=== PATIENT | male | born 1960 | race Caucasian/White ===

== ENCOUNTER → 2016-07-06 | Outpatient (CLI) | payer OTHER ==
[~2016-07-06] MED LIST: ACET30TAB PO; AMLO10TA2 PO; HYDR25TAB PO; LIPI80TA PO; LISI10TA4 PO; METO50TA2 PO; MOBI7.5T10 PO; NEUR300C PO; PAME50CA PO; TIZA2CAP3 PO; TRAM50TA2 PO
--- NOTE | 2016-07-06 15:43 | REP ---
MRI LUMBAR SPINE WITHOUT CONTRAST: HISTORY: Back and right leg pain. Slight decreased signal intensity on T2-weighted images is present in the L4-5 intervertebral disc. The disc is decreased in height. These findings are consistent with disc degeneration. There is no disc bulge or herniation at the L1-2 and L2-3 levels. The nerves exit the neural foramina without compression. A diffuse disc bulge is present at the L3-4 level. There is minimal compression of the thecal sac. There is hypertrophy of the ligamenta flava and posterior articulating facets. The L3 nerves exit the neural foramina without compression. A diffuse disc bulge is present at the L4-5 level. There is minimal compression of the thecal sac. There is hypertrophy of the posterior articulating facets. The L4 nerves exit the neural foramina without compression. There is no disc bulge or herniation at the L5-S1 level. There is an increase in the amount of epidural fat . There is minimal compression of the thecal sac. There is hypertrophy of the posterior articulating facets. The L5 nerves exit the neural foramina without compression. The conus medullaris is normal in appearance terminating at the level of the T12-L1 intervertebral disc. Normal signal intensity is present in the lumbar vertebral bodies. IMPRESSION: 1. Diffuse disc bulges at the L3-4 and L4-5 levels with minimal thecal sac compression. 2. There is epidural lipomatosis at the L5-S1 level with minimal thecal sac compression. Signed by Vick Kaur MD 07/06/2016 04:05 P
== END ==
LOC: M RAD 14:30
PROVIDERS: ATTEND Nurse Practitioner Family
DX: M51.16 Intervertebral disc disorders with radiculopathy, lumbar region (principal); E88.2 Lipomatosis, not elsewhere classified

== ENCOUNTER → 2016-07-12 | Outpatient (CLI) | payer OTHER ==
--- NOTE | 2016-07-15 00:53 | ECWPNPC ---
PATIENT NAME: ALLYN PERERA : 1960 GENDER: MALE VISIT DATE: 07/12/2016 DISCHARGE DATE: 07/12/16933 VISIT LOCKED DATE TIME: PHYSICIAN: ALFA CARRASCO RESOURCE: ALFA CARRASCO REASON FOR APPOINTMENT 1. BACK PAIN HISTORY OF PRESENT ILLNESS HISTORY OF PRESENT ILLNESS: HERE FOR ROUTINE F/U AND REVIEW OF MRI L/S SPINE.THIS IS SHOWING MULTI LEVEL DISC BULGE W FACET HYPERTROPHY.CHIEF AREA OF PAIN IS RIGHT LOW BACK AND BUTTOCK.PATIENT IS VERY ANXIOUS AGAIN TODAY AND ASKING FOR PROCEDURE TODAY.STATES HE RECENTLY LOST JOB DUE TO MISSED WORK DUE TO BACK PAIN..HAD TPI HEAD AND NECK ON 05-17-16.REPORTS NO IMPROVEMENT IN PAIN AND SOME AGGREVATION IN PAIN.CONTINUES WITH C/O NECK PAIN.CHIEF AREA OF PAIN TODAY IS RIGHT LOW BACK.THIS HAS BEEN HAPPENING FOR PAST 2MOS.DENIES PRECIPITAING EVENT.REPORTING NORMAL BOWEL AND BLADDER FUNCTION.PAIN SCORE IS 3-6/10 VAS. PAIN THE PATIENT DESCRIBES THE PAIN... THE PATIENT DESCRIBES THE PAIN... FALL RISK SCREENING: SCREENING :NO FALLS IN THE PAST YEAR CURRENT MEDICATIONS TAKING ATORVASTATIN CALCIUM 80 MG TABLET 1 TABLET ORALLY ONCE A DAY TAKING LISINOPRIL 10 MG TABLET 1 TABLET ORALLY ONCE A DAY, NOTES: 05/16/16 @ 1300 TAKING ZYRTEC ALLERGY 10 MG TABLET 1 TABLET ORALLY ONCE A DAY NEEDED, NOTES: 05/16/16 @ 0730 TAKING METOPROLOL TARTRATE 50 MG TABLET 1 TABLET ORALLY TWICE A DAY, NOTES: 05/17/16 0730 TAKING AMLODIPINE BESYLATE 10 MG TABLET 1 TABLET ORALLY ONCE A DAY, NOTES: 05/17/16 0730 TAKING GABAPENTIN 300 MG CAPSULE 3 ORALLY THREE TIMES A DAY, NOTES: 05/16/16 2300 TAKING TIZANIDINE HCL 4 MG TABLET 1 TABLET NEEDED ORALLY EVERY 8 HRS PRN, NOTES: 05/16/16 1800 TAKING MELOXICAM 15 MG TABLET 1 TABLET ORALLY TAKE DAILY FOR 5 DAYS, OFF FOR 2 TAKING BUPROPION HCL (SR) 150 MG TABLET EXTENDED RELEASE 12 HOUR 1 TABLET ORALLY TWICE A DAY TAKING VALTREX 500 MG TABLET 1 TABLET ORALLY DAILY NOT-TAKING MOBIC 15 MG TABLET 1 TABLET ORALLY ONCE A DAY X5DAYS OFF 5 DAYS PRN, NOTES: 05/17/16 @ 0130 NOT-TAKING HYDROCHLOROTHIAZIDE 25 MG TABLET 1/2 TAB(S) ORALLY ONCE A DAY, NOTES: > 2 MONTHS NOT-TAKING NAPROSYN 500 MG TABLET 1 TABLET NEEDED ORALLY DAILY NEEDED NOT-TAKING [facility] VITAMIN D3 1000 UNIT CAPSULE 1 CAPSULE ORALLY ONCE A DAY NOT-TAKING FIRST-MOUTHWASH BLM - SUSPENSION DIRECTED MOUTH/THROAT FOUR TIMES DAILY NEEDED MEDICATION LIST REVIEWED AND RECONCILED WITH THE PATIENT PAST MEDICAL HISTORY HTN SHORT'S PALSY JOINT PAIN UNSPECIFIED ESSENTIAL HYPERTENSION PAIN IN JOINT, SHOULDER REGION NONALLOPATHIC LESION OF THORACIC REGION, NOT ELSEWHERE CLASSIFIED NONDEPENDENT TOBACCO USE DISORDER SMOKING MIGRAINE WITHOUT AURA, WITH INTRACTABLE MIGRAINE, SO STATED, WITHOUT MENTION OF STATUS MIGRAINOSUS TRANSAMINITIS HYPERGLYCEMIA ALLERGY ALLERGIC CONJUNCTIVITIS HYPERLIPIDEMIA ESSENTIAL HYPERTENSION ASCVD10 (2016)- 11.5% ALLERGIES ASPIR-81: VOMITING: ALLERGY SOCIAL HISTORY GENERAL: TOBACCO USE ARE YOU A:CURRENT SMOKER HOW MANY CIGARETTES A DAY DO YOU SMOKE?6-10 HOW SOON AFTER YOU WAKE UP DO YOU SMOKE YOUR FIRST CIGARETTE?AFTER 60 MIN HOW OFTEN DO YOU SMOKE CIGARETTES?EVERY DAY PATIENT COUNSELED ON THE DANGERS OF TOBACCO USE AND URGED TO QUIT: COUNCELED ON THE IMPORTANCE OF NOT SMOKING. HE HAS CUT DOWN A LOT ON THE #/DAY THAT HE IS SMOKING. ARE YOU INTERESTED IN QUITTING?NOT READY TO QUIT LEARNING BARRIERS / SPECIAL NEEDS ORIENTED TO PLAN OF CARE: PATIENT, PAIN MANAGEMENT PATIENT, ORIENTED TO PLAN OF CARE: PATIENT, PAIN MANAGEMENT PATIENT. NEW PATIENT PAIN DIARY TODAY'S VISITNOTES FROM 0-10, WHAT LEVEL IS YOUR PAIN TODAY?0 PAIN CLINIC PFS, CLERGY, PUBLIC HEALTH REFERRALS PFS REFERRAL NEEDED?NO CLERGY REFERRAL NEEDED?NO PUBLIC HEALTH REFERRAL NEEDED?NO WAS THE PROVIDER NOTIFIED OF ANY PERTINENT INFO?NO PFS REFERRAL NEEDED?NO CLERGY REFERRAL NEEDED?NO PUBLIC HEALTH REFERRAL NEEDED?NO WAS THE PROVIDER NOTIFIED OF ANY PERTINENT INFO?NO REVIEW OF SYSTEMS CONSTITUTIONAL: ANY CHANGE IN YOUR MEDICAL CONDITION? NO . RECENT ILLNESS DENIES . CHILLS NO . FEVER NO . WEIGHT LOSS DENIES . INFECTION: DO YOU HAVE NEW INFECTIONS? NO . DO YOU HAVE HISTORY OF MRSA? NO . MUSCULOSKELETAL: ANY NEW PATTERNS OF PAIN OR NUMBNESS? YES, PAIN IN RIGHT LOWER BACK INTO BUTTOCKS RADIATING DOWN LEG JUST BEHIND KNEE HAS GOTTEN WORSE . GASTROENTEROLOGY: ANY NEW CHANGE IN BOWEL CONTROL? NO . GENITOURINARY: ANY NEW CHANGE IN BLADDER CONTROL? YES URINATING MORE FREQUENTLY . IS THERE A CHANCE YOU COULD BE ? NO . HEMATOLOGY/LYMPH: DO YOU TAKE ANY BLOOD THINNERS? (FOR EXAMPLE- COUMADIN, PLAVIX, AGGRENOX, PLATEL, PRADAXA, OR XARELTO) NO . WHEN WAS YOUR LAST DOSE? DATE: TIME: . NEUROLOGY: HAVE YOU FALLEN IN THE PAST 6 MONTHS? NO . ANY NEW EXTREMITY NUMBNESS OR WEAKNESS? NO . CARDIOLOGY: DO YOU HAVE A PACEMAKER OR DEFIBRILLATOR? NO . CHEST PAIN DENIES . SHORTNESS OF BREATH DENIES . RESPIRATORY: HAVE YOU BEEN SICK IN THE PAST WEEK? NO . FEVER NO . FLU LIKE SYMPTOMS? NO . COUGH NO, DENIES . SHORTNESS OF BREATH DENIES . INTEGUMENTARY: DO YOU HAVE ANY RASHES OR OPEN SORES? NO . ALLERGIC/IMMUNO: ARE YOU ALLERGIC TO SHELLFISH OR IV DYE? NO . ANY NEW ALLERGIES? NO . PSYCHIATRIC: DO YOU HAVE THOUGHTS OF HURTING YOURSELF OR SOMEONE ELSE? NO . ARE YOU ABUSED, NEGLECTED, OR IN AN UNSAFE ENVIRONMENT? NO . ENDOCRINOLOGY: ARE YOU DIABETIC? NO . OTHER: DO YOU NEED ANY PRESCRIPTIONS? YES, GABAPENTIN . IF YES, PLEASE LIST: ____ . ANY NEW PROBLEMS WITH YOUR MEDICATIONS? NO . WHEN DID YOU LAST EAT? ____ . WHEN DID YOU LAST DRINK? ____ . WHAT DID YOU LAST DRINK? ____ . NAME OF PERSON DRIVING YOU HOME? ____ . DO YOU HAVE ANY OTHER QUESTIONS OR CONCERNS NO . REVIEWED BY: PROVIDER: ALFA JIMENEZ . VITAL SIGNS WT 190 LBS, HT 66 IN, BMI 30.66 INDEX, BP 163/106 R ARM, REPEAT BP 170/102 L ARM, HR 79 /MIN, RR 18 /MIN, TEMP 97.6 F, OXYGEN SAT % 98, NA INITIALS TL 0857, REVIEWED BY: ROYAL BP, RN AJackie. AWARE-TLB/P RECHECK RIGHT ARM MANUALLY 150/92. EXAMINATION GENERAL EXAMINATION: LUNGS:LUNG SOUNDS ARE CLEAR. HEART:HEART RATE REGULAR. MUSCULOSKELETAL:*. DIAGNOSTIC:MRI L/S SPINE 07-06-16-REVIEWED.. LUMBAR SPINE/LOWER BACK: PALPATION:SPECIFIC POINT TENDERNESS OVER RIGHT SIJ.TENDER OVER LUMBAR PARASPINALS RIGHT >LEFT.. MOTOR SYSTEM:MILD WEAKNESS OVER RIGHT LEG.. REFLEXES:2/4 AND SYMMETRIC BLE. ASSESSMENTS LOW BACK PAIN RADIATING TO RIGHT LEG - M54.5 (PRIMARY) SACROILIAC JOINT PAIN - M53.3 TREATMENT LOW BACK PAIN RADIATING TO RIGHT LEG INJECTION ANESTHETIC SACROILIAC JOINT PREVENTIVE MEDICINE PAIN CLINIC TEACHING: PROCEDURE TEACHING PRINTED INFORMATION ON SIJ INJECTION GIVEN TO AND EXPLAINED TO PAT. HE VERBALIZED UNDERSTANDING.. PROCEDURE CODES FA211 ESTABILISHED PATIENT [facility] CHARGE FOLLOW UP 2 WEEKS POST (REASON: RIGHT SIJ SCHEDULE LINDA) ELECTRONICALLY SIGNED BY BARBARA HUFF ON 07/14/2016 AT 09:49 AM EST DISCLAIMER : THIS IS A VISIT SUMMARY EXTRACTED FROM THE [employer] CHART. IT IS NOT A COPY OF THE [employer] PROGRESS NOTE. DARLIN
== END ==
LOC: M PAIN 08:40
PROVIDERS: ATTEND Nurse Practitioner Family
DX: Z09 Encounter for follow-up examination after completed treatment for conditions other than malignant neoplasm (principal); M54.5 Low back pain; M53.3 Sacrococcygeal disorders, not elsewhere classified; I10 Essential (primary) hypertension; G43.909 Migraine, unspecified, not intractable, without status migrainosus; E78.5 Hyperlipidemia, unspecified; F17.200 Nicotine dependence, unspecified, uncomplicated; Z88.6 Allergy status to analgesic agent; Z79.899 Other long term (current) drug therapy

== ENCOUNTER → 2016-07-26 | Outpatient (REF) | payer OTHER | LOC: M SMT 16:58 | PROVIDERS: ATTEND Nurse Practitioner Women's Health | DX: R35.0 Frequency of micturition (principal) ==

== ENCOUNTER → 2016-07-27 | Outpatient (CLI) | payer OTHER ==
[~2016-07-27] MED LIST changes: +BUPIVACAINE HCL 0.25% 30 ML VIAL As Ordered ONE; +ISOVUE-M 300 61% 15ML VIAL (Q9967) As Ordered ONE; +LIDOCAINE 1% SDV INJ 30 ML VIAL As Ordered ONE; +TRIAMCINOLONE ACETONIDE SUSP 40 MG/ML VIAL (J3301) As Ordered ONE; +diazePAM 5 MG TAB As Ordered ONE; +oxyCODONE 5MG TAB As Ordered ONE
--- NOTE | 2016-07-27 15:02 | REP ---
Partial SI joint series: Two views. History: Injection procedure for pain. 9 seconds of fluoroscopy time is reported. Findings: A sequence of two fluoroscopically obtained last image hold spot radiographs of the right SI joint document needle position and contrast injection associated with SI joint injection procedure. Signed by Wang Laureano MD 07/27/2016 03:06 P
--- NOTE | 2016-07-30 00:01 | ECWPNPC ---
PATIENT NAME: ALLYN PERERA : 1960 GENDER: MALE VISIT DATE: 07/27/2016 DISCHARGE DATE: 07/27/16 1435 VISIT LOCKED DATE TIME: PHYSICIAN: KIARA MAYER RESOURCE: KIARA MAYER REASON FOR APPOINTMENT 1. RT SIJ HISTORY OF PRESENT ILLNESS HISTORY OF PRESENT ILLNESS: PAIN THE PATIENT DESCRIBES THE PAIN... FALL RISK SCREENING: SCREENING :NO FALLS IN THE PAST YEAR CURRENT MEDICATIONS TAKING ATORVASTATIN CALCIUM 80 MG TABLET 1 TABLET ORALLY ONCE A DAY, NOTES: 07-26-16 1700 TAKING LISINOPRIL 10 MG TABLET 1 TABLET ORALLY ONCE A DAY, NOTES: 07-26-16 2PM TAKING ZYRTEC ALLERGY 10 MG TABLET 1 TABLET ORALLY ONCE A DAY NEEDED, NOTES: 07-26-16 PM TAKING METOPROLOL TARTRATE 50 MG TABLET 1 TABLET ORALLY TWICE A DAY, NOTES: 07-27-16 0900 TAKING AMLODIPINE BESYLATE 10 MG TABLET 1 TABLET ORALLY ONCE A DAY, NOTES: 07-27-16 09 TAKING GABAPENTIN 300 MG CAPSULE 3 ORALLY THREE TIMES A DAY, NOTES: 07-27-16 09 TAKING TIZANIDINE HCL 4 MG TABLET 1 TABLET NEEDED ORALLY EVERY 8 HRS PRN, NOTES: 05/16/16 1800 TAKING MELOXICAM 15 MG TABLET 1 TABLET ORALLY TAKE DAILY FOR 5 DAYS, OFF FOR 2, NOTES: 3 DAYS AGO TAKING BUPROPION HCL (SR) 150 MG TABLET EXTENDED RELEASE 12 HOUR 1 TABLET ORALLY TWICE A DAY, NOTES: 07-26-16 2200 TAKING VALTREX 500 MG TABLET 1 TABLET ORALLY DAILY, NOTES: 07-27-16 09 TAKING DIFLUCAN 100 MG TABLET 1 TABLET ORALLY ONCE A DAY, NOTES: 07-27-16899 TAKING KETOCONAZOLE 2 % CREAM 1 APPLICATION TO AFFECTED AREA EXTERNALLY THREE TIMES DAILY, NOTES: 07-27-16 NOT-TAKING HYDROCHLOROTHIAZIDE 25 MG TABLET 1/2 TAB(S) ORALLY ONCE A DAY, NOTES: > 2 MONTHS NOT-TAKING FIRST-MOUTHWASH BLM - SUSPENSION DIRECTED MOUTH/THROAT FOUR TIMES DAILY NEEDED DISCONTINUED DIFLUCAN 200 MG TABLET 1 TABLET ORALLY ONE DOSE TODAY DISCONTINUED MOBIC 15 MG TABLET 1 TABLET ORALLY ONCE A DAY X5DAYS OFF 5 DAYS PRN, NOTES: 05/17/16 @ 0130 DISCONTINUED NAPROSYN 500 MG TABLET 1 TABLET NEEDED ORALLY DAILY NEEDED DISCONTINUED CVS VITAMIN D3 1000 UNIT CAPSULE 1 CAPSULE ORALLY ONCE A DAY MEDICATION LIST REVIEWED AND RECONCILED WITH THE PATIENT PAST MEDICAL HISTORY HTN SHORT'S PALSY JOINT PAIN UNSPECIFIED ESSENTIAL HYPERTENSION PAIN IN JOINT, SHOULDER REGION NONALLOPATHIC LESION OF THORACIC REGION, NOT ELSEWHERE CLASSIFIED NONDEPENDENT TOBACCO USE DISORDER SMOKING MIGRAINE WITHOUT AURA, WITH INTRACTABLE MIGRAINE, SO STATED, WITHOUT MENTION OF STATUS MIGRAINOSUS TRANSAMINITIS HYPERGLYCEMIA ALLERGY ALLERGIC CONJUNCTIVITIS HYPERLIPIDEMIA ESSENTIAL HYPERTENSION ASCVD10 (2016)- 11.5% ALLERGIES ASPIR-81: VOMITING: ALLERGY SOCIAL HISTORY GENERAL: TOBACCO USE ARE YOU A:NONSMOKER LEARNING BARRIERS / SPECIAL NEEDS ORIENTED TO PLAN OF CARE: PATIENT, PAIN MANAGEMENT PATIENT, ORIENTED TO PLAN OF CARE: PATIENT, PAIN MANAGEMENT PATIENT. NEW PATIENT PAIN DIARY TODAY'S VISITNOTES FROM 0-10, WHAT LEVEL IS YOUR PAIN TODAY?0 PAIN CLINIC PFS, CLERGY, PUBLIC HEALTH REFERRALS PFS REFERRAL NEEDED?NO CLERGY REFERRAL NEEDED?NO PUBLIC HEALTH REFERRAL NEEDED?NO WAS THE PROVIDER NOTIFIED OF ANY PERTINENT INFO?NO PFS REFERRAL NEEDED?NO CLERGY REFERRAL NEEDED?NO PUBLIC HEALTH REFERRAL NEEDED?NO WAS THE PROVIDER NOTIFIED OF ANY PERTINENT INFO?NO REVIEW OF SYSTEMS CONSTITUTIONAL: ANY CHANGE IN YOUR MEDICAL CONDITION? NO . CHILLS NO . FEVER NO . INFECTION: DO YOU HAVE NEW INFECTIONS? NO . DO YOU HAVE HISTORY OF MRSA? NO . MUSCULOSKELETAL: ANY NEW PATTERNS OF PAIN OR NUMBNESS? NO . GASTROENTEROLOGY: ANY NEW CHANGE IN BOWEL CONTROL? NO . GENITOURINARY: ANY NEW CHANGE IN BLADDER CONTROL? YES, FREQUENT URINATION. SEEING UROLOGY. . IS THERE A CHANCE YOU COULD BE ? NO . HEMATOLOGY/LYMPH: DO YOU TAKE ANY BLOOD THINNERS? (FOR EXAMPLE- COUMADIN, PLAVIX, AGGRENOX, PLATEL, PRADAXA, OR XARELTO) NO . WHEN WAS YOUR LAST DOSE? DATE: TIME: . NEUROLOGY: HAVE YOU FALLEN IN THE PAST 6 MONTHS? NO . ANY NEW EXTREMITY NUMBNESS OR WEAKNESS? NO . CARDIOLOGY: DO YOU HAVE A PACEMAKER OR DEFIBRILLATOR? NO . RESPIRATORY: HAVE YOU BEEN SICK IN THE PAST WEEK? NO . FEVER NO . FLU LIKE SYMPTOMS? NO . COUGH NO . INTEGUMENTARY: DO YOU HAVE ANY RASHES OR OPEN SORES? NO . ALLERGIC/IMMUNO: ARE YOU ALLERGIC TO SHELLFISH OR IV DYE? NO . ANY NEW ALLERGIES? NO . PSYCHIATRIC: DO YOU HAVE THOUGHTS OF HURTING YOURSELF OR SOMEONE ELSE? NO . ARE YOU ABUSED, NEGLECTED, OR IN AN UNSAFE ENVIRONMENT? NO . ENDOCRINOLOGY: ARE YOU DIABETIC? NO . OTHER: DO YOU NEED ANY PRESCRIPTIONS? NO . IF YES, PLEASE LIST: ____ . ANY NEW PROBLEMS WITH YOUR MEDICATIONS? NO . WHEN DID YOU LAST EAT? 07-27-16 0500 . WHEN DID YOU LAST DRINK? 07-27-16 0900 . WHAT DID YOU LAST DRINK? ICED TEA . NAME OF PERSON DRIVING YOU HOME? DELBERT . DO YOU HAVE ANY OTHER QUESTIONS OR CONCERNS NO . REVIEWED BY: PROVIDER: . VITAL SIGNS WT 192 LBS, HT 66 IN, BMI 30.99 INDEX, BP 144/98 MANUAL, HR 64 /MIN, RR 18 /MIN, TEMP 97.4 F, OXYGEN SAT % 93, NA INITIALS TL 1305, REVIEWED BY: CM. ASSESSMENTS SACROILIITIS, NOT ELSEWHERE CLASSIFIED - M46.1 (PRIMARY) PROCEDURES PN SI PRE PROCEDURE DIAGNOSIS SACROILIITIS, SACROILIAC JOINT DYSFUNCTION POST PROCEDURE DIAGNOSIS SACROILIITIS, SACROILIAC JOINT DYSFUNCTION PROCEDURE RIGHT SACROILIAC JOINT BLOCK SURGEON DR. KIARA MAYER FLIGHT CONTROLS ENGINEER NONE ANESTHESIA LOCAL PRE PROCEDURE NOTE PATIENT WITH HISTORY OF CHRONIC LOW BACK PAIN. I EVALUATED THE PATIENT AND REVIEWED THE CHART. I WENT OVER THE RISKS, ALTERNATIVES, AND BENEFITS ASSOCIATED WITH THIS PROCEDURE. THE PATIENT WOULD LIKE TO PROCEED AND GAVE CONSENT TO PERFORM THE PROCEDURE. THE PATIENT DENIES UNEXPLAINABLE WEIGHT LOSS, FEVER, CHILLS, OR NEW CHANGES IN URINARY OR BOWEL CONTROL DESCRIPTION OF PROCEDURE THE PATIENT WAS BROUGHT TO THE PROCEDURE ROOM AND PLACED IN THE PRONE POSITION. THE LUMBOSACRAL AREA WAS CLEANED WITH CHLORAPREP SOLUTION AND DRAPED ASEPTICALLY. THE PROCEDURE WAS DONE UNDER STERILE CONDITIONS. I CHECKED LATERALITY AND THE LEVEL WHERE THE PROCEDURE WAS GOING TO BE PERFORMED WITH THE PATIENT AND THE SUPPORTING STAFF AT THE MOMENT OF THE TIME OUT IN THE PROCEDURE ROOM. UNDER FLUOROSCOPIC GUIDANCE, TARGET POINT WAS SELECTED AT THE LOWER BORDER OF THE RIGHT SACROILIAC JOINT. TARGET POINT WAS SELECTED AFTER MEDIAL ROTATION AND TILT OF THE MAGNIFIER OF THE C-ARM. LIDOCAINE WAS USED TO NUMB THE SKIN AND SUBCUTANEOUS TISSUE BELOW IT. A SPINAL NEEDLE, 22-GAUGE, WAS ADVANCED UNDER FLUOROSCOPIC GUIDANCE AND FOLLOWING PATIENT FEEDBACK UNTIL THE TARGET AREA WAS TOUCHED. THE POSITION OF THE NEEDLE WAS VERIFIED WITH AP AND LATERAL VIEWS. AFTER PROPER POSITION OF THE NEEDLE WAS ACHIEVED, ISOVUE M DYE 30%, 0.25 ML, WAS INJECTED SHOWING SPREAD OF THE DYE. THEN, A SOLUTION OF 20 MG OF KENALOG WAS INJECTED IN RIGHT JOINT WITH 3 ML OF BUPIVACAINE 0.125%. THERE WAS NO EVIDENCE OF BLOOD, PARESTHESIA OR CEREBROSPINAL FLUID DURING THE PROCEDURE. THE PATIENT WAS SENT TO THE RECOVERY ROOM. THE PATIENT WAS MOVING THE EXTREMITIES AND DOING WELL. THERE WAS NO COMPLICATION DURING THE PROCEDURE. FLUOROSCOPY TIME WAS 9 SECONDS POST PROCEDURE NOTE THE PATIENT WILL BE SEEN IN A FOLLOW UP IN THE NEXT FEW WEEKS. INSTRUCTIONS WERE GIVEN, QUESTIONS WERE ANSWERED, AND THE PATIENT EXPRESSED UNDERSTANDING AND AGREED WITH THE PLAN. I, MOISÉS PATE, DOCUMENTED THE ABOVE INFORMATION ACTING A SCRIBE FOR DR. MAYER. I, DR. MAYER, HAVE REVIEWED THE ABOVE DOCUMENT, SCRIBED BY MOISÉS PATE, AND I VERIFY THAT IT IS ACCURATE DIAGNOST[facility]AG[facility] FLUORO GUIDANCE (PAIN)[id number] PROCEDURE CODES 32855 INJECT SACROILIAC JOINT 6045F RADXPS IN END [id number] PXD FOLLOW UP 3 WEEKS ELECTRONICALLY SIGNED BY KIARA MAYER MD ON 07/29/2016 AT 01:38 PM EST DISCLAIMER : THIS IS A VISIT SUMMARY EXTRACTED FROM THE [employer] CHART. IT IS NOT A COPY OF THE [employer] PROGRESS NOTE. MTDD
== END ==
LOC: M PAIN 13:00
PROVIDERS: ATTEND Anesthesiology
DX: G89.29 Other chronic pain (principal); M46.1 Sacroiliitis, not elsewhere classified; M53.88 Other specified dorsopathies, sacral and sacrococcygeal region; I10 Essential (primary) hypertension; G43.901 Migraine, unspecified, not intractable, with status migrainosus; E78.5 Hyperlipidemia, unspecified; M99.82 Other biomechanical lesions of thoracic region; Z86.69 Personal history of other diseases of the nervous system and sense organs; Z86.39 Personal history of other endocrine, nutritional and metabolic disease; Z88.6 Allergy status to analgesic agent; Z79.899 Other long term (current) drug therapy; Z87.891 Personal history of nicotine dependence
CPT/HCPCS: G0260; J3301; Q9967

== ENCOUNTER 2016-07-29 11:38 | Emergency (ER) | payer OTHER, SELFPAY ==
[~2016-07-29 11:38] MED LIST changes: -BUPIVACAINE HCL 0.25% 30 ML VIAL As Ordered ONE; -ISOVUE-M 300 61% 15ML VIAL (Q9967) As Ordered ONE; -LIDOCAINE 1% SDV INJ 30 ML VIAL As Ordered ONE; -TRIAMCINOLONE ACETONIDE SUSP 40 MG/ML VIAL (J3301) As Ordered ONE; -diazePAM 5 MG TAB As Ordered ONE; -oxyCODONE 5MG TAB As Ordered ONE
[2016-07-29] MEDS ORDERED: HumuLIN R (REGULAR) INSULIN (NovoLIN R) **100U/ML** PER UNIT As Ordered ONE (12:56)
[2016-07-29 13:12] LABS: BASO % 0.1 % (0.0-1.0); EOS # 0.2 K/mm3 (0.0-0.50); LARGE UNSTAINED CELL # 0.1 K/mm3 (0.0-0.4); LARGE UNSTAINED CELL % 0.6 % (0.0-4.0); LYMPH # 1.5 K/mm3 (1.5-4.5); LYMPH % 8.4 % (24.0-44.0); MEAN CORPUSCULAR HEMOGLOBIN 33.1 pg (27.0-33.0); MEAN CORPUSCULAR HGB CONC 33.3 g/dl (32.0-36.5); MEAN CORPUSCULAR VOLUME 99.5 fl (80.0-96.0); MONO # 0.9 K/mm3 (0.0-0.8); MONO % 5.3 % (0.0-5.0); NEUTROPHILS # 13.8 K/mm3 (1.8-7.7); NEUTROPHILS % 84.5 % (36.0-66.0); PLATELET COUNT, AUTOMATED 124 k/mm3 (150-450); RED CELL DISTRIBUTION WIDTH 13.4 % (11.5-14.5); WHITE BLOOD COUNT 16.3 K/mm3 (4.0-10.0)
[2016-07-29 13:37] LABS: ALBUMIN 3.7 GM/DL (3.2-5.2); ALBUMIN/GLOBULIN RATIO 0.73 (1.00-1.93); ALKALINE PHOSPHATASE 197 U/L (45-117); ALT/SGPT 242 U/L (12-78); AMYLASE 45 U/L (25-115); ANION GAP 11 MEQ/L (8-16); AST/SGOT 118 U/L (15-37); BILIRUBIN,DIRECT 0.1 MG/DL (0.0-0.2); BILIRUBIN,TOTAL 1.2 MG/DL (0.2-1.0); BLOOD UREA NITROGEN 23 MG/DL (7-18); CALCIUM LEVEL 9.5 MG/DL (8.5-10.1); CARBON DIOXIDE LEVEL 24 MEQ/L (21-32); CHLORIDE LEVEL 99 MEQ/L (98-107); CREATININE FOR GFR 1.15 MG/DL (0.70-1.30); GLOMERULAR FILTRATION RATE > 60.0 (>56); POTASSIUM SERUM 4.4 MEQ/L (3.5-5.1); SODIUM LEVEL 134 MEQ/L (136-145); TOTAL PROTEIN 8.8 GM/DL (6.4-8.2)
[2016-07-29 13:38] LABS: GLUCOSE, FASTING 553 MG/DL (70-105)
--- NOTE | 2016-07-29 15:05 | REP ---
Right upper quadrant abdominal ultrasound: Comparison is 09/16/2068. Images of the liver on a chest CT dated 08/31/2015. There is a negative Glass's sign to transducer pressure. There is no cholelithiasis, gallbladder wall thickening or pericholecystic fluid. The gallbladder is somewhat contracted. There is no intrahepatic or extrahepatic biliary duct dilatation, the common duct is 4 mm in diameter per The hepatic parenchyma is attenuating compatible with hepato steatosis. There is a focal 1 cm nodule in the right lobe of the liver, similar to that identified on the chest CT dated 08/31/2015. The right kidney is normal size measuring 12 point 2 cm craniocaudad length. There is no hydronephrosis, calculus or mass. There is a 1 cm cyst in the lower pole. Impression: Findings are compatible with hepatosteatosis. Focal solid hepatic nodule measuring 1 cm, similar in size to the chest CT dated 08/31/2015. Partially contracted gallbladder without cholelithiasis. No biliary duct dilatation. Signed by Gabriele Diaz MD 07/29/2016 02:56 P
--- NOTE | 2016-07-29 15:55 | EDDOCDS ---
Nurse's Notes [facility] Name: Bolivar Anguiano Age: 55 yrs Sex: Male : 1960 Arrival Date: 07/29/2016 Time: 11:38 Bed 6 Private MD: Asad Kearney Diagnosis: Type 2 diabetes mellitus with hyperglycemia;Polydipsia;Polyuria;Abnormal results of liver function studies-WITH HEPATOSTEATOSIS Presentation: 07/29 11:43 Presenting complaint: Patient states: "frequent urinating". Since this morning. States ttb he has gone 10 times this morning. Apt with urology in 2 weeks. Adult Sepsis Screening: The patient does not have new or worsening altered mentation. Patient's respiratory rate is less than 22. Systolic blood pressure is greater than 100. Patient has a qSOFA score of 0- Negative Sepsis Screen. Suicide/Homicide risk assessment- the patient denies having any suicidal and/or homicidal ideations and does not present with any other emotional, behavioral or mental health complaints. Status: Patient is not a answering service agent or dependent. Transition of care: patient was not received from another setting of care. 11:43 Acuity: RICHELLE Level 4 ttb 11:43 Method Of Arrival: Walkin/Carried/Asstd ttb Triage Assessment: 11:46 General: Appears in no apparent distress, well nourished, well groomed, Behavior is ttb anxious, appropriate for age, cooperative, pleasant, restless. Pain: Denies pain. HIV screening NA for this visit Offered previously. Neurological: Level of Consciousness is awake, alert. Respiratory: No deficits noted. Airway is patent. : Reports urinary frequency. Derm: Skin is normal. Injury Description: No known injury. Historical: - Allergies: Aspirin (Vomit); - Home Meds: 1. metoprolol tartrate 50 mg Oral tab 1 tab 2 times per day (Last dose: 07/29/2016 08:00) 2. lisinopril 10 mg Oral tab once daily (Last dose: 07/29/2016 08:00) 3. amlodipine 10 mg Oral tab 1 tab once daily (Last dose: 07/29/2016 08:00) 4. gabapentin 300 mg Oral cap twice a day (Last dose: 07/29/2016 08:00) 5. Lipitor 40 mg Oral tab 1 tab once daily (Last dose: 07/28/2016) 6. tizanidine nightly 4mg (Last dose: 07/28/2016) 7. Valtrex 500 mg Oral tab 1 tab once daily (Last dose: 07/29/2016 08:00) - PMHx: high blood pressure; HSV-II ?; - PSHx: Cystectomy; - Social history: Smoking status: Patient uses tobacco products, current every day smoker. Patient/guardian denies using alcohol, street drugs, No barriers to communication noted, The patient speaks fluent Occitan, Speaks appropriately for age. - Family history: Not pertinent. - : The pt / caregiver states he / she is not on anticoagulants. Home medication list is obtained from the patient. - Exposure Risk Screening:: None identified. Screenin:59 Screening information is obtained from the patient. Fall risk: No risks identified. pml Assistance ADL's: requires no assistance with activities of daily living. Abuse/DV Screen: The patient / caregiver reports he/she is: not in a situation that causes fear, pain or injury. Nutritional screening: No deficits noted. Advance Directives: Currently, there is no health care proxy. home support is adequate. Assessment: 12:59 General: Appears in no apparent distress, comfortable, Behavior is appropriate for age, pml cooperative. Pain: Location: headache Pain currently is 5 out of 10 on a pain scale. Neurological: Level of Consciousness is awake, alert, Oriented to person, place, time. Cardiovascular: Capillary refill < 3 seconds Rhythm is sinus rhythm No ectopy. Respiratory: Airway is patent Respiratory effort is even, unlabored, Respiratory pattern is regular, symmetrical. GI: Abdomen is non- distended obese. : Urine is clear, pt reports increased urination and increased thirst. Derm: Skin is pink, warm & dry. 13:35 General: resting on stretcher, no apparent distress. resps easy and unlabored, skin pml p/w/d. sinus rhythm on monitor without ectopy. voices no complaints.. 14:17 General: Appears in no apparent distress, comfortable, Behavior is appropriate for age, pml cooperative. Pain: Denies pain. Neurological: Level of Consciousness is awake, alert, Oriented to person, place, time. Cardiovascular: Capillary refill < 3 seconds Rhythm is sinus rhythm No ectopy. Derm: Skin is pink, warm & dry. 15:22 General: resting on stretcher, diet provided, tolerating without complaints. resps easy pml and unlabored, skin p/w/d . 15:53 General: Appears in no apparent distress, Behavior is appropriate for age, cooperative. pml Pain: Denies pain. Neurological: Level of Consciousness is awake, alert, Oriented to person, place, time. Cardiovascular: Capillary refill < 3 seconds. Respiratory: Airway is patent Respiratory effort is even, unlabored. Derm: Skin is pink, warm & dry. Vital Signs: 11:40 BP 136 / 85; Pulse 76; Resp 18; Temp 97.9(T); Pulse Ox 97% on R/A; Weight 86.18 kg (R); lr2 Height 5 ft. 7 in. (170.18 cm) (R); Pain 2/10; 12:40 BP 140 / 86 (auto/); pml 12:44 Pulse 68 MON; Pulse Ox 94% ; pml 12:55 Pulse 64 MON; Pulse Ox 94% ; pml 12:55 BP 131 / 82 (auto/); pml 13:10 Pulse 64 MON; Pulse Ox 96% ; pml 13:10 BP 136 / 92 (auto/); pml 13:25 Pulse 64 MON; Pulse Ox 96% ; pml 13:25 BP 156 / 83 (auto/); pml 13:40 Pulse 60 MON; Pulse Ox 96% ; pml 13:40 BP 143 / 86 (auto/); pml 13:55 Pulse 62 MON; Pulse Ox 97% ; pml 13:55 BP 144 / 87 (auto/); pml 14:10 Pulse 58 MON; Pulse Ox 95% ; pml 14:10 BP 137 / 85 (auto/); pml 14:25 Pulse 62 MON; Pulse Ox 95% ; pml 14:25 BP 138 / 73 (auto/); pml 14:40 Pulse 56 MON; Pulse Ox 97% ; pml 14:40 BP 145 / 85 (auto/); pml 14:55 Pulse 56 MON; Pulse Ox 96% ; pml 14:55 BP 137 / 87 (auto/); pml 15:53 BP 126 / 99; Pulse 66; Resp 18; Temp 97.5; Pulse Ox 94% on R/A; pml 11:40 Body Mass Index 29.76 (86.18 kg, 170.18 cm) lr2 Vitals: 11:40 Log In Time: July 29, 2016 at 11:38. lr2 ED Course: 11:40 Patient visited by Zari Russo. lr2 11:40 Asad Kearney DO is Private Physician. lr2 11:40 Patient moved to Waiting lr2 11:40 Patient moved to Pre RCE lr2 11:44 Triage Initiated ttb 12:05 Patient moved to Triage 3 js13 12:12 Tiff Pascual PA-C is PHCP. dt4 12:12 Siobhan Coburn MD is Attending Physician. dt4 12:12 Patient visited by Tiff Pascual PA-C. dt4 12:18 Patient name changed from Bolivar\\S\\\\S\\Anguiano\\S\\ to Bolivar\\S\\ \\S\\Anguiano. EDMS 12:18 [facility] [place] Payment Agreement was scanned into [employer] and attached to record. lg 12:21 Patient visited by Kelli Florence PCA. rs6 12:21 GC & Chlamydia Amplification Sent. rs6 12:21 Urine Culture Sent. rs6 12:21 Urinalysis Sent. rs6 12:21 Urine collected. Clean catch specimen. Urine specimen sent to lab. rs6 12:35 Patient moved to 6 js13 12:59 Patient visited by Sadnra Alexandre RN. kr3 12:59 The patient / caregiver is instructed regarding the plan of care and ED course. Patient pml has correct armband on for positive identification. Placed in gown. Bed in low position. Call light in reach. Side rails up X2. personnel monitor on. Pulse ox on. NIBP on. 12:59 Hemoglobin A1c Sent. kr3 12:59 Lipase Sent. kr3 12:59 Amylase Sent. kr3 12:59 Liver Profile Sent. kr3 12:59 Basic Metabolic Profile Sent. kr3 12:59 CBC with Diff Sent. kr3 12:59 Inserted peripheral IV: 18gauge IV in left hand and blood collected. Patient tolerated pml the procedure well. 13:01 Patient visited by Princess Martino,MARTINEZ. pml 13:35 Patient visited by Princess Martino,RN. pml 14:16 Patient visited by Princess Martino,RN. pml 14:25 Patient moved to Ultrasound hgl 14:41 Patient moved to 6 hgl 15:23 Patient visited by Princess Martino,MARTINEZ. pml 15:42 [facility] is Referral Physician. dt4 15:52 US Abd Limited Returned. EDMS 15:53 Discontinued lock intact, bleeding controlled, pressure dressing applied, No pml redness/swelling at site. No procedures done that require assistance. Administered Medications: 12:59 Drug: NS 0.9% 2000 ml [sodium chloride 0.9 % intravenous solution] Route: IV; Rate: kr3 bolus; Site: right hand; 15:54 Follow up: IV Status: Infusion discontinued; IV Intake: 1600ml pml 13:01 Not Given (GIVEN IV INSTEADd): Insulin Regular Human 10 units Sub-Q once dt4 13:02 Drug: Insulin Regular Human 10 units [insulin regular human 100 unit/mL injection kr3 solution (0.1 mL)] {Co-Signature: pml (Princess Martino RN).} Route: IVP; Site: right hand; Point of Care Testing: Blood Glucose: 12:32 Blood Glucose: 578 mg/dL; js13 13:34 Blood Glucose: 393 mg/dL; pml 14:16 Blood Glucose: 350 mg/dL; pml 15:22 Blood Glucose: 317 mg/dL; pml Ranges: Intake: 15:54 IV: 1600.00ml; Total: 1600.00ml. pml Order Results: Lab Order: Urinalysis; SPEC'M 07/29/16 12:16 Test: APPEARANCE, URINE; Value: CLEAR; Range: CLEAR; Status: F Test: COLOR, URINE; Value: STRAW; Range: YELLOW; Status: F Test: PH,URINE; Value: 6.0; Range: 5.0-9.0; Units: UNITS; Status: F Test: SPECIFIC GRAVITY URINE AUTO; Value: 1.029; Range: 1.002-1.035; Status: F Test: PROTEIN, URINE AUTO; Value: NEGATIVE; Range: NEGATIVE; Units: mg/dL; Status: F Test: GLUCOSE, URINE (UA) AUTO; Value: 3+; Range: NEGATIVE; Abnormal: Above high normal; Units: mg/dL; Status: F Test: KETONE, URINE AUTO; Value: NEGATIVE; Range: NEGATIVE; Units: mg/dL; Status: F Test: UROBILINOGEN, URINE AUTO; Value: 0.2; Range: 0.0-2.0; Units: mg/dL; Status: F Test: BILIRUBIN, URINE AUTO; Value: NEGATIVE; Range: NEGATIVE; Status: F Test: NITRITE, URINE AUTO; Value: NEGATIVE; Range: NEGATIVE; Status: F Test: LEUKOCYTE ESTERASE, URINE AUTO; Value: NEGATIVE; Range: NEGATIVE; Status: F Test: BLOOD, URINE BLOOD; Value: NEGATIVE; Range: NEGATIVE; Status: F Test: WBC, URINE AUTO; Value: 0; Range: 0-3; Units: /HPF; Status: F Test: RBC, URINE AUTO; Value: 0; Range: 0-3; Units: /HPF; Status: F Test: BACTERIA, URINE AUTO; Value: NEGATIVE; Range: NEGATIVE; Status: F Test: SQUAMOUS EPITHELIAL CELL UR AU; Value: 0; Range: 0-6; Units: /HPF; Status: F Test: MUCUS, URINE; Value: SMALL; Range: NEGATIVE; Status: F Test: HYALINE CAST, URINE AUTO; Value: 0; Range: 0-1; Units: /LPF; Status: F Lab Order: GC & Chlamydia Amplification; SPEC'M 07/29/16 12:16 Test: CHLAMYDIA DNA AMPLIFICATION; Value: NEGATIVE; Range: NEGATIVE; Status: F Test: GC DNA AMPLIFICATION; Value: NEGATIVE; Range: NEGATIVE; Status: F Lab Order: Fingerstick Blood Sugar; SPEC'M 07/29/16 12:28 Test: BEDSIDE GLUCOSE; Value: 578; Range: 70-105; Abnormal: Above upper panic limits; Units: MG/DL; Status: F Test Note: ; Serum Blood Draw Lab Order: CBC with Diff; SPEC'M 07/29/16 12:50 Test: WHITE BLOOD COUNT; Value: 16.3; Range: 4.0-10.0; Abnormal: Above high normal; Units: K/mm3; Status: F Test: RED BLOOD COUNT; Value: 5.05; Range: 4.30-6.10; Units: M/mm3; Status: F Test: HEMOGLOBIN; Value: 16.7; Range: 14.0-18.0; Units: g/dl; Status: F Test: HEMATOCRIT; Value: 50.3; Range: 42.0-52.0; Units: %; Status: F Test: MEAN CORPUSCULAR VOLUME; Value: 99.5; Range: 80.0-96.0; Abnormal: Above high normal; Units: fl; Status: F Test: MEAN CORPUSCULAR HEMOGLOBIN; Value: 33.1; Range: 27.0-33.0; Abnormal: Above high normal; Units: pg; Status: F Test: MEAN CORPUSCULAR HGB CONC; Value: 33.3; Range: 32.0-36.5; Units: g/dl; Status: F Test: RED CELL DISTRIBUTION WIDTH; Value: 13.4; Range: 11.5-14.5; Units: %; Status: F Test: PLATELET COUNT, AUTOMATED; Value: 124; Range: 150-450; Abnormal: Below low normal; Units: k/mm3; Status: F Test: NEUTROPHILS %; Value: 84.5; Range: 36.0-66.0; Abnormal: Above high normal; Units: %; Status: F Test: LYMPH %; Value: 8.4; Range: 24.0-44.0; Abnormal: Below low normal; Units: %; Status: F Test: MONO %; Value: 5.3; Range: 0.0-5.0; Abnormal: Above high normal; Units: %; Status: F Test: EOS %; Value: 1.0; Range: 0.0-3.0; Units: %; Status: F Test: BASO %; Value: 0.1; Range: 0.0-1.0; Units: %; Status: F Test: LARGE UNSTAINED CELL %; Value: 0.6; Range: 0.0-4.0; Units: %; Status: F Test: NEUTROPHILS #; Value: 13.8; Range: 1.8-7.7; Abnormal: Above high normal; Units: K/mm3; Status: F Test: LYMPH #; Value: 1.5; Range: 1.5-4.5; Units: K/mm3; Status: F Test: MONO #; Value: 0.9; Range: 0.0-0.8; Abnormal: Above high normal; Units: K/mm3; Status: F Test: EOS #; Value: 0.2; Range: 0.0-0.50; Units: K/mm3; Status: F Test: BASO #; Value: 0.0; Range: 0.0-0.2; Units: K/mm3; Status: F Test: LARGE UNSTAINED CELL #; Value: 0.1; Range: 0.0-0.4; Units: K/mm3; Status: F Lab Order: Basic Metabolic Profile; SPEC'M 07/29/16 12:50 Test: GLUCOSE, FASTING; Value: 553; Range: 70-105; Abnormal: Above upper panic limits; Units: MG/DL; Status: F Test: BLOOD UREA NITROGEN; Value: 23; Range: 7-18; Abnormal: Above high normal; Units: MG/DL; Status: F Test: CREATININE FOR GFR; Value: 1.15; Range: 0.70-1.30; Units: MG/DL; Status: F Test: GLOMERULAR FILTRATION RATE; Value: > 60.0; Range: >56; Status: F Test: SODIUM LEVEL; Value: 134; Range: 136-145; Abnormal: Below low normal; Units: MEQ/L; Status: F Test: POTASSIUM SERUM; Value: 4.4; Range: 3.5-5.1; Units: MEQ/L; Status: F Test: CHLORIDE LEVEL; Value: 99; Range: 98-107; Units: MEQ/L; Status: F Test: CARBON DIOXIDE LEVEL; Value: 24; Range: 21-32; Units: MEQ/L; Status: F Test: ANION GAP; Value: 11; Range: 8-16; Units: MEQ/L; Status: F Test: CALCIUM LEVEL; Value: 9.5; Range: 8.5-10.1; Units: MG/DL; Status: F Test Note: ; Units are mL/min/1.73 m2 Chronic Kidney Disease Staging per NKF: Stage I & II GFR >=60 Normal to Mildly Decreased Stage III GFR 30-59 Moderately Decreased Stage IV GFR 15-29 Severely Decreased Stage V GFR <15 Very Little GFR Left ESRD GFR <15 on OBSTETRICS TECH Lab Order: Liver Profile; SPEC'M 07/29/16 12:50 Test: AST/SGOT; Value: 118; Range: 15-37; Abnormal: Above high normal; Units: U/L; Status: F Test: ALT/SGPT; Value: 242; Range: 12-78; Abnormal: Above high normal; Units: U/L; Status: F Test: ALKALINE PHOSPHATASE; Value: 197; Range: 45-117; Abnormal: Above high normal; Units: U/L; Status: F Test: BILIRUBIN,TOTAL; Value: 1.2; Range: 0.2-1.0; Abnormal: Above high normal; Units: MG/DL; Status: F Test: BILIRUBIN,DIRECT; Value: 0.1; Range: 0.0-0.2; Units: MG/DL; Status: F Test: TOTAL PROTEIN; Value: 8.8; Range: 6.4-8.2; Abnormal: Above high normal; Units: GM/DL; Status: F Test: ALBUMIN; Value: 3.7; Range: 3.2-5.2; Units: GM/DL; Status: F Test: ALBUMIN/GLOBULIN RATIO; Value: 0.73; Range: 1.00-1.93; Abnormal: Below low normal; Status: F Lab Order: Amylase; [facility] 07/29/16 12:50 Test: AMYLASE; Value: 45; Range: 25-115; Units: U/L; Status: F Lab Order: Lipase; [facility] 07/29/16 12:50 Test: LIPASE; Value: 293; Range: 73-393; Units: U/L; Status: F Lab Order: Hemoglobin A1c; [facility] 07/29/16 12:50 Test: HEMOGLOBIN A1c; Value: 10.1; Range: 4.5-6.2; Abnormal: Above high normal; Units: %; Status: F Test: ESTIMATED AVERAGE GLUCOSE; Value: 243; Range: 60-110; Abnormal: Above high normal; Units: MG/DL; Status: F Lab Order: Fingerstick Blood Sugar; [facility] 07/29/16 13:33 Test: BEDSIDE GLUCOSE; Value: 393; Range: 70-105; Abnormal: Above high normal; Units: MG/DL; Status: F Lab Order: Fingerstick Blood Sugar; [facility] 07/29/16 14:12 Test: BEDSIDE GLUCOSE; Value: 350; Range: 70-105; Abnormal: Above high normal; Units: MG/DL; Status: F Lab Order: Fingerstick Blood Sugar; [facility] 07/29/16 15:21 Test: BEDSIDE GLUCOSE; Value: 317; Range: 70-105; Abnormal: Above high normal; Units: MG/DL; Status: F Radiology Order: US Abd Limited Test: US Abd Limited REASON FOR EXAMINATION: ELEVATED LIVER FUNCTIONS, NEW ONSET DIABETES; Right upper quadrant abdominal ultrasound:; ; Comparison is 09/16/2068. Images of the liver on a chest CT dated 08/31/2015.; ; There is a negative Glass's sign to transducer pressure. There is no; cholelithiasis, gallbladder wall thickening or pericholecystic fluid. The; gallbladder is somewhat contracted.; ; There is no intrahepatic or extrahepatic biliary duct dilatation, the common duct; is 4 mm in diameter per; ; The hepatic parenchyma is attenuating compatible with hepato steatosis. There is; a focal 1 cm nodule in the right lobe of the liver, similar to that identified on; the chest CT dated 08/31/2015.; ; The right kidney is normal size measuring 12 point 2 cm craniocaudad length.; There is no hydronephrosis, calculus or mass. There is a 1 cm cyst in the lower; pole.; ; Impression:; ; Findings are compatible with hepatosteatosis.; ; Focal solid hepatic nodule measuring 1 cm, similar in size to the chest CT dated; 08/31/2015.; ; Partially contracted gallbladder without cholelithiasis. No biliary duct; dilatation.; ; ; Signed by; Gabriele Diaz MD 07/29/2016 02:56 P; Outcome: 15:44 Discharge ordered by Provider. dt4 15:53 Discharge Assessment: Patient awake, alert and oriented x 3. No cognitive and/or pml functional deficits noted. Patient verbalized understanding of disposition instructions. patient administered narcotics - no. The following High Risk Discharge criteria are identified: None. Discharged to home ambulatory. Condition: good Condition: stable. Discharge instructions given to patient, Instructed on discharge instructions, follow up and referral plans. medication usage, diet, Demonstrated understanding of instructions, medications, Pt was receptive of discharge instructions/ teaching. Prescriptions given X 1. Ultrasound Study completed. Property sent home with patient. 15:55 Patient left the ED. pml Signatures: Dispatcher [employer] EDMS Sallie Crowe Reg Reg lg Robie, Kathleen,RN RN kr3 Princess Martino RN RN pml [place],MARTINEZ RN js13 Ly, Daniel hgl Fabiana Perez RN RN briseydab Tiff Pascual, PA-C PA-C dt4 Kelli Florence, ROD ROASTER OPERATOR rs6 Zari Russo lr2 Princess Martino RN pml MTDD
--- NOTE | 2016-07-29 15:55 | EDDOCDS ---
Physician Documentation [facility] Name: Bolivar Anguiano Age: 55 yrs Sex: Male : 1960 Arrival Date: 07/29/2016 Time: 11:38 Bed 6 Private MD: Asad Brown Disposition: 07/29/16 15:44 Discharged to Home/Self Care. Impression: Type 2 diabetes mellitus with hyperglycemia, Polydipsia, Polyuria, Abnormal results of liver function studies - WITH HEPATOSTEATOSIS. - Condition is Stable. - Discharge Instructions: Type 2 Diabetes Mellitus, Adult. - Prescriptions for Metformin 500 mg Oral Tablet - take 1 tablet by ORAL route 2 times per day with morning and evening meals; 20 tablet. - Medication Reconciliation, Local Pharmacy Hours form. - Follow up: Emergency Department; When: As needed; Reason: Worsening of conditions. [facility]; When: [facility] DR. FRANCISCO, [facility] AT 9:45[facility]; Reason: Wound/Symptom Recheck, Further diagnostic work-up, Recheck today's complaints, Continuance of care. - Problem is new. - Symptoms have improved. Historical: - Allergies: Aspirin (Vomit); - Home Meds: 1. metoprolol tartrate 50 mg Oral tab 1 tab 2 times per day (Last dose: 07/29/2016 08:00) 2. lisinopril 10 mg Oral tab once daily (Last dose: 07/29/2016 08:00) 3. amlodipine 10 mg Oral tab 1 tab once daily (Last dose: 07/29/2016 08:00) 4. gabapentin 300 mg Oral cap twice a day (Last dose: 07/29/2016 08:00) 5. Lipitor 40 mg Oral tab 1 tab once daily (Last dose: 07/28/2016) 6. tizanidine nightly 4mg (Last dose: 07/28/2016) 7. Valtrex 500 mg Oral tab 1 tab once daily (Last dose: 07/29/2016 08:00) - PMHx: high blood pressure; HSV-II ?; - PSHx: Cystectomy; - Social history: Smoking status: Patient uses tobacco products, current every day smoker. Patient/guardian denies using alcohol, street drugs, No barriers to communication noted, The patient speaks fluent Kosovan, Speaks appropriately for age. - Family history: Not pertinent. - : The pt / caregiver states he / she is not on anticoagulants. Home medication list is obtained from the patient. - Exposure Risk Screening:: None identified. Vital Signs: 07/29 11:40 BP 136 / 85; Pulse 76; Resp 18; Temp 97.9(T); Pulse Ox 97% on R/A; Weight 86.18 kg / lr2 189.99 lbs (R); Height 5 ft. 7 in. (170.18 cm) (R); Pain 07/29; 12:40 BP 140 / 86 (auto/); pml 12:44 Pulse 68 MON; Pulse Ox 94% ; pml 12:55 Pulse 64 MON; Pulse Ox 94% ; pml 12:55 BP 131 / 82 (auto/); pml 13:10 Pulse 64 MON; Pulse Ox 96% ; pml 13:10 BP 136 / 92 (auto/); pml 13:25 Pulse 64 MON; Pulse Ox 96% ; pml 13:25 BP 156 / 83 (auto/); pml 13:40 Pulse 60 MON; Pulse Ox 96% ; pml 13:40 BP 143 / 86 (auto/); pml 13:55 Pulse 62 MON; Pulse Ox 97% ; pml 13:55 BP 144 / 87 (auto/); pml 14:10 Pulse 58 MON; Pulse Ox 95% ; pml 14:10 BP 137 / 85 (auto/); pml 14:25 Pulse 62 MON; Pulse Ox 95% ; pml 14:25 BP 138 / 73 (auto/); pml 14:40 Pulse 56 MON; Pulse Ox 97% ; pml 14:40 BP 145 / 85 (auto/); pml 14:55 Pulse 56 MON; Pulse Ox 96% ; pml 14:55 BP 137 / 87 (auto/); pml 15:53 BP 126 / 99; Pulse 66; Resp 18; Temp 97.5; Pulse Ox 94% on R/A; pml 11:40 Body Mass Index 29.76 (86.18 kg, 170.18 cm) lr2 MDM: 11:50 Urinalysis Ordered. EDMS 11:50 GC & Chlamydia Amplification Ordered. EDMS 11:50 Urine Culture Ordered. EDMS 12:12 Financial registration complete. lg 12:17 Accucheck ordered. dt4 12:18 [facility] Payment Agreement was scanned into [employer] and attached to record. lg 12:41 IV Saline Lock ordered. dt4 12:41 NS 0.9% 2000 ml IV at bolus once ordered. dt4 12:41 Insulin Regular Human 10 units Sub-Q once ordered. dt4 12:41 Accucheck hourly ordered. dt4 12:42 CBC with Diff Ordered. EDMS 12:42 Basic Metabolic Profile Ordered. EDMS 12:42 Liver Profile Ordered. EDMS 12:42 Amylase Ordered. EDMS 12:42 Lipase Ordered. EDMS 12:42 Hemoglobin A1c Ordered. EDMS 13:01 Insulin Regular Human 10 units IVP once ordered. dt4 13:23 ED course: PT STATES HE HAS BEEN DEALING WITH A NON-HEALING WOUND IN HIS GROIN FROM A dt4 SURGERY WITH DR. RM IN JUNE OF 2015. HAS SEEN HIM SEVERAL TIMES FOR THIS AND IN MAY, NOT A RASH THAT WAS DIAGNOSED HERPES. STATES THIS HAS BEEN TREATED MULTIPLE TIMES WITH VALTREX AND IMPROVES, BUT ONCE HIS PRESCRIPTION FOR VALTREX RUNS OUT, IT RETURNS. STATES DR. RM HAS PRESCRIBED TOPICAL CREAMS WHICH HAVE HELPED SLIGHTLY. PT STATES OVER THE PAST 2.5 WEEKS, HE HAS HAD UNQUENCHABLE THIRST AND HAS BEEN URINATING FAR MORE THAN USUAL. DENIES ANY PERSONAL OR FAMILY HX OF DIABETES. CURRENTLY COMPLAINS OF ONLY POLYDIPSIA AND POLYURIA. DENIES ANY RECENT FEVER, ABDOMINAL PAIN. STATES OCCASIONAL NAUSEA WITHOUT VOMITING. . 13:50 US Abd Limited Ordered. EDMS 13:52 Fingerstick Blood Sugar Ordered. EDMS 14:20 Fingerstick Blood Sugar Ordered. EDMS 15:27 ED course: DR. BROWN CALLED BACK, AFTER SPEAKING WITH [facility]. ADVISED TO HAVE dt4 THIS PT PLACED IN HIS SCHEDULE FOR MONDAY. CALLED AND SPOKE WITH CLINIC FOR APPT FOR THIS PT. ADVISED HAVE AN APPT WITH DR. FRANCISCO FOR 08/02/16, AT 0945. WILL MAKE PT AWARE AND START ON METFORMIN. . 15:28 Fingerstick Blood Sugar Ordered. EDMS Point of Care Testing: Blood Glucose: 12:32 Blood Glucose: 578 mg/dL; js13 13:34 Blood Glucose: 393 mg/dL; pml 14:16 Blood Glucose: 350 mg/dL; pml 15:22 Blood Glucose: 317 mg/dL; pml Ranges: Administered Medications: 12:59 Drug: NS 0.9% 2000 ml [sodium chloride 0.9 % intravenous solution] Route: IV; Rate: kr3 bolus; Site: right hand; 15:54 Follow up: IV Status: Infusion discontinued; IV Intake: 1600ml pml 13:01 Not Given (GIVEN IV INSTEADd): Insulin Regular Human 10 units Sub-Q once dt4 13:02 Drug: Insulin Regular Human 10 units [insulin regular human 100 unit/mL injection kr3 solution (0.1 mL)] {Co-Signature: pml (Princess Martino RN).} Route: IVP; Site: right hand; Signatures: Dispatcher [employer] EDSallie Rodriguez, Reg Reg lg Princess Martino,RN RN Fabiana Velazquez RN RN ttTiff Canas PA-C PA-C dt4 Sandra Alexandre RN kr3 Princess bentley The chart was reviewed and I authenticate all verbal orders and agree with the evaluation and treatment provided.Attachments: 12:18 [facility] Payment Agreement lg MTDD
--- NOTE | 2016-07-31 16:56 | EDDOCDS ---
Physician Documentation [facility] Name: Bolivar Anguiano Age: 55 yrs Sex: Male : 1960 Arrival Date: 07/29/2016 Time: 11:38 Bed 6 Private MD: Asad Brown Disposition: 07/29/16 15:44 Discharged to Home/Self Care. Impression: Type 2 diabetes mellitus with hyperglycemia, Polydipsia, Polyuria, Abnormal results of liver function studies - WITH HEPATOSTEATOSIS. - Condition is Stable. - Discharge Instructions: Type 2 Diabetes Mellitus, Adult. - Prescriptions for Metformin 500 mg Oral Tablet - take 1 tablet by ORAL route 2 times per day with morning and evening meals; 20 tablet. - Medication Reconciliation, Local Pharmacy Hours form. - Follow up: Emergency Department; When: As needed; Reason: Worsening of conditions. [facility]; When: WITH DR. FRANCISCO, IN DR. BROWN'S OFFICE [facility]/02/16 AT 9:45AM; Reason: Wound/Symptom Recheck, Further diagnostic work-up, Recheck today's complaints, Continuance of care. - Problem is new. - Symptoms have improved. Historical: - Allergies: Aspirin (Vomit); - Home Meds: 1. metoprolol tartrate 50 mg Oral tab 1 tab 2 times per day (Last dose: 07/29/2016 08:00) 2. lisinopril 10 mg Oral tab once daily (Last dose: 07/29/2016 08:00) 3. amlodipine 10 mg Oral tab 1 tab once daily (Last dose: 07/29/2016 08:00) 4. gabapentin 300 mg Oral cap twice a day (Last dose: 07/29/2016 08:00) 5. Lipitor 40 mg Oral tab 1 tab once daily (Last dose: 07/28/2016) 6. tizanidine nightly 4mg (Last dose: 07/28/2016) 7. Valtrex 500 mg Oral tab 1 tab once daily (Last dose: 07/29/2016 08:00) - PMHx: high blood pressure; HSV-II ?; - PSHx: Cystectomy; - Social history: Smoking status: Patient uses tobacco products, current every day smoker. Patient/guardian denies using alcohol, street drugs, No barriers to communication noted, The patient speaks fluent Swiss, Speaks appropriately for age. - Family history: Not pertinent. - : The pt / caregiver states he / she is not on anticoagulants. Home medication list is obtained from the patient. - Exposure Risk Screening:: None identified. Vital Signs: 07/29 11:40 BP 136 / 85; Pulse 76; Resp 18; Temp 97.9(T); Pulse Ox 97% on R/A; Weight 86.18 kg / lr2 189.99 lbs (R); Height 5 ft. 7 in. (170.18 cm) (R); Pain 07/29; 12:40 BP 140 / 86 (auto/); pml 12:44 Pulse 68 MON; Pulse Ox 94% ; pml 12:55 Pulse 64 MON; Pulse Ox 94% ; pml 12:55 BP 131 / 82 (auto/); pml 13:10 Pulse 64 MON; Pulse Ox 96% ; pml 13:10 BP 136 / 92 (auto/); pml 13:25 Pulse 64 MON; Pulse Ox 96% ; pml 13:25 BP 156 / 83 (auto/); pml 13:40 Pulse 60 MON; Pulse Ox 96% ; pml 13:40 BP 143 / 86 (auto/); pml 13:55 Pulse 62 MON; Pulse Ox 97% ; pml 13:55 BP 144 / 87 (auto/); pml 14:10 Pulse 58 MON; Pulse Ox 95% ; pml 14:10 BP 137 / 85 (auto/); pml 14:25 Pulse 62 MON; Pulse Ox 95% ; pml 14:25 BP 138 / 73 (auto/); pml 14:40 Pulse 56 MON; Pulse Ox 97% ; pml 14:40 BP 145 / 85 (auto/); pml 14:55 Pulse 56 MON; Pulse Ox 96% ; pml 14:55 BP 137 / 87 (auto/); pml 15:53 BP 126 / 99; Pulse 66; Resp 18; Temp 97.5; Pulse Ox 94% on R/A; pml 11:40 Body Mass Index 29.76 (86.18 kg, 170.18 cm) lr2 MDM: 11:50 Urinalysis Ordered. EDMS 11:50 GC & Chlamydia Amplification Ordered. EDMS 11:50 Urine Culture Ordered. EDMS 12:12 Financial registration complete. lg 12:17 Accucheck ordered. dt4 12:18 [facility] Payment Agreement was scanned into [employer] and attached to record. lg 12:41 IV Saline Lock ordered. dt4 12:41 NS 0.9% 2000 ml IV at bolus once ordered. dt4 12:41 Insulin Regular Human 10 units Sub-Q once ordered. dt4 12:41 Accucheck hourly ordered. dt4 12:42 CBC with Diff Ordered. EDMS 12:42 Basic Metabolic Profile Ordered. EDMS 12:42 Liver Profile Ordered. EDMS 12:42 Amylase Ordered. EDMS 12:42 Lipase Ordered. EDMS 12:42 Hemoglobin A1c Ordered. EDMS 13:01 Insulin Regular Human 10 units IVP once ordered. dt4 13:23 ED course: PT STATES HE HAS BEEN DEALING WITH A NON-HEALING WOUND IN HIS GROIN FROM A dt4 SURGERY WITH DR. RM IN JUNE OF 2015. HAS SEEN HIM SEVERAL TIMES FOR THIS AND IN MAY, NOT A RASH THAT WAS DIAGNOSED HERPES. STATES THIS HAS BEEN TREATED MULTIPLE TIMES WITH VALTREX AND IMPROVES, BUT ONCE HIS PRESCRIPTION FOR VALTREX RUNS OUT, IT RETURNS. STATES DR. RM HAS PRESCRIBED TOPICAL CREAMS WHICH HAVE HELPED SLIGHTLY. PT STATES OVER THE PAST 2.5 WEEKS, HE HAS HAD UNQUENCHABLE THIRST AND HAS BEEN URINATING FAR MORE THAN USUAL. DENIES ANY PERSONAL OR FAMILY HX OF DIABETES. CURRENTLY COMPLAINS OF ONLY POLYDIPSIA AND POLYURIA. DENIES ANY RECENT FEVER, ABDOMINAL PAIN. STATES OCCASIONAL NAUSEA WITHOUT VOMITING. . 13:50 US Abd Limited Ordered. EDMS 13:52 Fingerstick Blood Sugar Ordered. EDMS 14:20 Fingerstick Blood Sugar Ordered. EDMS 15:27 ED course: DR. BROWN CALLED BACK, AFTER SPEAKING WITH E CLINIC. ADVISED TO HAVE dt4 THIS PT PLACED IN HIS SCHEDULE FOR MONDAY. CALLED AND SPOKE WITH CLINIC FOR APPT FOR THIS PT. ADVISED HAVE AN APPT WITH DR. FRANCISCO FOR 08/02/16, AT 0945. WILL MAKE PT AWARE AND START ON METFORMIN. . 15:28 Fingerstick Blood Sugar Ordered. EDMS 07/30 06:39 ED course: e clinic faxed formal report of abdl us for fu mlg. ml 11:52 T-Sheet-- Draft Copy was scanned into [employer] and attached to record. gb 16:19 Radiology Report was scanned into [employer] and attached to record. gb Point of Care Testing: Blood Glucose: 07/29 12:32 Blood Glucose: 578 mg/dL; js13 13:34 Blood Glucose: 393 mg/dL; pml 14:16 Blood Glucose: 350 mg/dL; pml 15:22 Blood Glucose: 317 mg/dL; pml Ranges: Administered Medications: 12:59 Drug: NS 0.9% 2000 ml [sodium chloride 0.9 % intravenous solution] Route: IV; Rate: kr3 bolus; Site: right hand; 15:54 Follow up: IV Status: Infusion discontinued; IV Intake: 1600ml pml 13:01 Not Given (GIVEN IV INSTEADd): Insulin Regular Human 10 units Sub-Q once dt4 13:02 Drug: Insulin Regular Human 10 units [insulin regular human 100 unit/mL injection kr3 solution (0.1 mL)] {Co-Signature: sheree (Princess Martino RN).} Route: IVP; Site: right hand; Signatures: Dispatcher [employer] EDJose Raul Bonds MD MD Hemalatha Pizarro, Reg Reg gb Sallie Crowe, Reg Reg lg Princess Martino,RN RN pml Fabiana Perez, RN RN ttb Tiff Pascual, PARoseanna PARoseanna dt4 Sandra Alexandre RN kr3 Princess bentley The chart was reviewed and I authenticate all verbal orders and agree with the evaluation and treatment provided.Attachments: 12:18 [facility] Payment Agreement lg 07/30 11:52 T-Sheet-- Draft Copy Chart Complete MTDD
--- NOTE | 2016-07-31 16:56 | EDDOCDS ---
Physician Documentation [facility] Name: Bolivar Anguiano Age: 55 yrs Sex: Male : 1960 Arrival Date: 07/29/2016 Time: 11:38 Bed 6 Private MD: Asad Brown Disposition: 07/29/16 15:44 Discharged to Home/Self Care. Impression: Type 2 diabetes mellitus with hyperglycemia, Polydipsia, Polyuria, Abnormal results of liver function studies - WITH HEPATOSTEATOSIS. - Condition is Stable. - Discharge Instructions: Type 2 Diabetes Mellitus, Adult. - Prescriptions for Metformin 500 mg Oral Tablet - take 1 tablet by ORAL route 2 times per day with morning and evening meals; 20 tablet. - Medication Reconciliation, Local Pharmacy Hours form. - Follow up: Emergency Department; When: As needed; Reason: Worsening of conditions. Follow up: [facility]; When: WITH DR. FRANCISCO, IN DR. BROWN'S OFFICE ON [facility]08/02/16 AT 9:45AM; Reason: Wound/Symptom Recheck, Further diagnostic work-up, Recheck today's complaints, Continuance of care. - Problem is new. - Symptoms have improved. Historical: - Allergies: Aspirin (Vomit); - Home Meds: 1. metoprolol tartrate 50 mg Oral tab 1 tab 2 times per day (Last dose: 07/29/2016 08:00) 2. lisinopril 10 mg Oral tab once daily (Last dose: 07/29/2016 08:00) 3. amlodipine 10 mg Oral tab 1 tab once daily (Last dose: 07/29/2016 08:00) 4. gabapentin 300 mg Oral cap twice a day (Last dose: 07/29/2016 08:00) 5. Lipitor 40 mg Oral tab 1 tab once daily (Last dose: 07/28/2016) 6. tizanidine nightly 4mg (Last dose: 07/28/2016) 7. Valtrex 500 mg Oral tab 1 tab once daily (Last dose: 07/29/2016 08:00) - PMHx: high blood pressure; HSV-II ?; - PSHx: Cystectomy; - Social history: Smoking status: Patient uses tobacco products, current every day smoker. Patient/guardian denies using alcohol, street drugs, No barriers to communication noted, The patient speaks fluent French, Speaks appropriately for age. - Family history: Not pertinent. - : The pt / caregiver states he / she is not on anticoagulants. Home medication list is obtained from the patient. - Exposure Risk Screening:: None identified. Vital Signs: 07/29 11:40 BP 136 / 85; Pulse 76; Resp 18; Temp 97.9(T); Pulse Ox 97% on R/A; Weight 86.18 kg / lr2 189.99 lbs (R); Height 5 ft. 7 in. (170.18 cm) (R); Pain 07/29; 12:40 BP 140 / 86 (auto/); pml 12:44 Pulse 68 MON; Pulse Ox 94% ; pml 12:55 Pulse 64 MON; Pulse Ox 94% ; pml 12:55 BP 131 / 82 (auto/); pml 13:10 Pulse 64 MON; Pulse Ox 96% ; pml 13:10 BP 136 / 92 (auto/); pml 13:25 Pulse 64 MON; Pulse Ox 96% ; pml 13:25 BP 156 / 83 (auto/); pml 13:40 Pulse 60 MON; Pulse Ox 96% ; pml 13:40 BP 143 / 86 (auto/); pml 13:55 Pulse 62 MON; Pulse Ox 97% ; pml 13:55 BP 144 / 87 (auto/); pml 14:10 Pulse 58 MON; Pulse Ox 95% ; pml 14:10 BP 137 / 85 (auto/); pml 14:25 Pulse 62 MON; Pulse Ox 95% ; pml 14:25 BP 138 / 73 (auto/); pml 14:40 Pulse 56 MON; Pulse Ox 97% ; pml 14:40 BP 145 / 85 (auto/); pml 14:55 Pulse 56 MON; Pulse Ox 96% ; pml 14:55 BP 137 / 87 (auto/); pml 15:53 BP 126 / 99; Pulse 66; Resp 18; Temp 97.5; Pulse Ox 94% on R/A; pml 11:40 Body Mass Index 29.76 (86.18 kg, 170.18 cm) lr2 MDM: 11:50 Urinalysis Ordered. EDMS 11:50 GC & Chlamydia Amplification Ordered. EDMS 11:50 Urine Culture Ordered. EDMS 12:12 Financial registration complete. lg 12:17 Accucheck ordered. dt4 12:18 [facility] Payment Agreement was scanned into [employer] and attached to record. lg 12:41 IV Saline Lock ordered. dt4 12:41 NS 0.9% 2000 ml IV at bolus once ordered. dt4 12:41 Insulin Regular Human 10 units Sub-Q once ordered. dt4 12:41 Accucheck hourly ordered. dt4 12:42 CBC with Diff Ordered. EDMS 12:42 Basic Metabolic Profile Ordered. EDMS 12:42 Liver Profile Ordered. EDMS 12:42 Amylase Ordered. EDMS 12:42 Lipase Ordered. EDMS 12:42 Hemoglobin A1c Ordered. EDMS 13:01 Insulin Regular Human 10 units IVP once ordered. dt4 13:23 ED course: PT STATES HE HAS BEEN DEALING WITH A NON-HEALING WOUND IN HIS GROIN FROM A dt4 SURGERY WITH DR. RM IN JUNE OF 2015. HAS SEEN HIM SEVERAL TIMES FOR THIS AND IN MAY, NOT A RASH THAT WAS DIAGNOSED HERPES. STATES THIS HAS BEEN TREATED MULTIPLE TIMES WITH VALTREX AND IMPROVES, BUT ONCE HIS PRESCRIPTION FOR VALTREX RUNS OUT, IT RETURNS. STATES DR. RM HAS PRESCRIBED TOPICAL CREAMS WHICH HAVE HELPED SLIGHTLY. PT STATES OVER THE PAST 2.5 WEEKS, HE HAS HAD UNQUENCHABLE THIRST AND HAS BEEN URINATING FAR MORE THAN USUAL. DENIES ANY PERSONAL OR FAMILY HX OF DIABETES. CURRENTLY COMPLAINS OF ONLY POLYDIPSIA AND POLYURIA. DENIES ANY RECENT FEVER, ABDOMINAL PAIN. STATES OCCASIONAL NAUSEA WITHOUT VOMITING. . 13:50 US Abd Limited Ordered. EDMS 13:52 Fingerstick Blood Sugar Ordered. EDMS 14:20 Fingerstick Blood Sugar Ordered. EDMS 15:27 ED course: DR. BROWN CALLED BACK, AFTER SPEAKING WITH E CLINIC. ADVISED TO HAVE dt4 THIS PT PLACED IN HIS SCHEDULE FOR MONDAY. CALLED AND SPOKE WITH CLINIC FOR APPT FOR THIS PT. ADVISED HAVE AN APPT WITH DR. FRANCISCO FOR 08/02/16, AT 0945. WILL MAKE PT AWARE AND START ON METFORMIN. . 15:28 Fingerstick Blood Sugar Ordered. EDMS 07/30 06:39 ED course: e clinic faxed formal report of abdl us for fu mlg. ml 11:52 T-Sheet-- Draft Copy was scanned into [employer] and attached to record. gb 16:19 Radiology Report was scanned into [employer] and attached to record. gb Point of Care Testing: Blood Glucose: 07/29 12:32 Blood Glucose: 578 mg/dL; js13 13:34 Blood Glucose: 393 mg/dL; pml 14:16 Blood Glucose: 350 mg/dL; pml 15:22 Blood Glucose: 317 mg/dL; pml Ranges: Administered Medications: 12:59 Drug: NS 0.9% 2000 ml [sodium chloride 0.9 % intravenous solution] Route: IV; Rate: kr3 bolus; Site: right hand; 15:54 Follow up: IV Status: Infusion discontinued; IV Intake: 1600ml pml 13:01 Not Given (GIVEN IV INSTEADd): Insulin Regular Human 10 units Sub-Q once dt4 13:02 Drug: Insulin Regular Human 10 units [insulin regular human 100 unit/mL injection kr3 solution (0.1 mL)] {Co-Signature: sheree (Princess Martino RN).} Route: IVP; Site: right hand; Signatures: Dispatcher [employer] EDJose Raul Bonds MD MD Hemalatha Pizarro, Reg Reg gb Sallie Crowe, Reg Reg lg Princess Martino,RN RN pml Fabiana Perez, RN RN ttb Tiff Pascual, PARoseanna PARoseanna dt4 Sandra Alexandre RN kr3 Princess bentley The chart was reviewed and I authenticate all verbal orders and agree with the evaluation and treatment provided.Attachments: 12:18 [facility] Payment Agreement lg 07/30 11:52 T-Sheet-- Draft Copy Chart Complete MTDD
--- NOTE | 2016-07-31 16:56 | EDDOCDS ---
Nurse's Notes [facility] Name: Bolivar Anguiano Age: 55 yrs Sex: Male : 1960 Arrival Date: 07/29/2016 Time: 11:38 Bed 6 Private MD: Aasd Kearney Diagnosis: Type 2 diabetes mellitus with hyperglycemia;Polydipsia;Polyuria;Abnormal results of liver function studies-WITH HEPATOSTEATOSIS Presentation: 07/29 11:43 Presenting complaint: Patient states: "frequent urinating". Since this morning. States ttb he has gone 10 times this morning. Apt with urology in 2 weeks. Adult Sepsis Screening: The patient does not have new or worsening altered mentation. Patient's respiratory rate is less than 22. Systolic blood pressure is greater than 100. Patient has a qSOFA score of 0- Negative Sepsis Screen. Suicide/Homicide risk assessment- the patient denies having any suicidal and/or homicidal ideations and does not present with any other emotional, behavioral or mental health complaints. Status: Patient is not a elevator operator service or dependent. Transition of care: patient was not received from another setting of care. 11:43 Acuity: RICHELLE Level 4 ttb 11:43 Method Of Arrival: Walkin/Carried/Asstd ttb Triage Assessment: 11:46 General: Appears in no apparent distress, well nourished, well groomed, Behavior is ttb anxious, appropriate for age, cooperative, pleasant, restless. Pain: Denies pain. HIV screening NA for this visit Offered previously. Neurological: Level of Consciousness is awake, alert. Respiratory: No deficits noted. Airway is patent. : Reports urinary frequency. Derm: Skin is normal. Injury Description: No known injury. Historical: - Allergies: Aspirin (Vomit); - Home Meds: 1. metoprolol tartrate 50 mg Oral tab 1 tab 2 times per day (Last dose: 07/29/2016 08:00) 2. lisinopril 10 mg Oral tab once daily (Last dose: 07/29/2016 08:00) 3. amlodipine 10 mg Oral tab 1 tab once daily (Last dose: 07/29/2016 08:00) 4. gabapentin 300 mg Oral cap twice a day (Last dose: 07/29/2016 08:00) 5. Lipitor 40 mg Oral tab 1 tab once daily (Last dose: 07/28/2016) 6. tizanidine nightly 4mg (Last dose: 07/28/2016) 7. Valtrex 500 mg Oral tab 1 tab once daily (Last dose: 07/29/2016 08:00) - PMHx: high blood pressure; HSV-II ?; - PSHx: Cystectomy; - Social history: Smoking status: Patient uses tobacco products, current every day smoker. Patient/guardian denies using alcohol, street drugs, No barriers to communication noted, The patient speaks fluent Amharic, Speaks appropriately for age. - Family history: Not pertinent. - : The pt / caregiver states he / she is not on anticoagulants. Home medication list is obtained from the patient. - Exposure Risk Screening:: None identified. Screenin:59 Screening information is obtained from the patient. Fall risk: No risks identified. pml Assistance ADL's: requires no assistance with activities of daily living. Abuse/DV Screen: The patient / caregiver reports he/she is: not in a situation that causes fear, pain or injury. Nutritional screening: No deficits noted. Advance Directives: Currently, there is no health care proxy. home support is adequate. Assessment: 12:59 General: Appears in no apparent distress, comfortable, Behavior is appropriate for age, pml cooperative. Pain: Location: headache Pain currently is 5 out of 10 on a pain scale. Neurological: Level of Consciousness is awake, alert, Oriented to person, place, time. Cardiovascular: Capillary refill < 3 seconds Rhythm is sinus rhythm No ectopy. Respiratory: Airway is patent Respiratory effort is even, unlabored, Respiratory pattern is regular, symmetrical. GI: Abdomen is non- distended obese. : Urine is clear, pt reports increased urination and increased thirst. Derm: Skin is pink, warm & dry. 13:35 General: resting on stretcher, no apparent distress. resps easy and unlabored, skin pml p/w/d. sinus rhythm on monitor without ectopy. voices no complaints.. 14:17 General: Appears in no apparent distress, comfortable, Behavior is appropriate for age, pml cooperative. Pain: Denies pain. Neurological: Level of Consciousness is awake, alert, Oriented to person, place, time. Cardiovascular: Capillary refill < 3 seconds Rhythm is sinus rhythm No ectopy. Derm: Skin is pink, warm & dry. 15:22 General: resting on stretcher, diet provided, tolerating without complaints. resps easy pml and unlabored, skin p/w/d . 15:53 General: Appears in no apparent distress, Behavior is appropriate for age, cooperative. pml Pain: Denies pain. Neurological: Level of Consciousness is awake, alert, Oriented to person, place, time. Cardiovascular: Capillary refill < 3 seconds. Respiratory: Airway is patent Respiratory effort is even, unlabored. Derm: Skin is pink, warm & dry. Vital Signs: 11:40 BP 136 / 85; Pulse 76; Resp 18; Temp 97.9(T); Pulse Ox 97% on R/A; Weight 86.18 kg (R); lr2 Height 5 ft. 7 in. (170.18 cm) (R); Pain 2/10; 12:40 BP 140 / 86 (auto/); pml 12:44 Pulse 68 MON; Pulse Ox 94% ; pml 12:55 Pulse 64 MON; Pulse Ox 94% ; pml 12:55 BP 131 / 82 (auto/); pml 13:10 Pulse 64 MON; Pulse Ox 96% ; pml 13:10 BP 136 / 92 (auto/); pml 13:25 Pulse 64 MON; Pulse Ox 96% ; pml 13:25 BP 156 / 83 (auto/); pml 13:40 Pulse 60 MON; Pulse Ox 96% ; pml 13:40 BP 143 / 86 (auto/); pml 13:55 Pulse 62 MON; Pulse Ox 97% ; pml 13:55 BP 144 / 87 (auto/); pml 14:10 Pulse 58 MON; Pulse Ox 95% ; pml 14:10 BP 137 / 85 (auto/); pml 14:25 Pulse 62 MON; Pulse Ox 95% ; pml 14:25 BP 138 / 73 (auto/); pml 14:40 Pulse 56 MON; Pulse Ox 97% ; pml 14:40 BP 145 / 85 (auto/); pml 14:55 Pulse 56 MON; Pulse Ox 96% ; pml 14:55 BP 137 / 87 (auto/); pml 15:53 BP 126 / 99; Pulse 66; Resp 18; Temp 97.5; Pulse Ox 94% on R/A; pml 11:40 Body Mass Index 29.76 (86.18 kg, 170.18 cm) lr2 Vitals: 11:40 Log In Time: July 29, 2016 at 11:38. lr2 ED Course: 11:40 Patient visited by Zari Russo. lr2 11:40 Asad Kearney DO is Private Physician. lr2 11:40 Patient moved to Waiting lr2 11:40 Patient moved to Pre RCE lr2 11:44 Triage Initiated ttb 12:05 Patient moved to Triage 3 js13 12:12 Tiff Pascual PA-C is PHCP. dt4 12:12 Siobhan Coburn MD is Attending Physician. dt4 12:12 Patient visited by Tiff Pascual PA-C. dt4 12:18 Patient name changed from Bolivar\\S\\\\S\\Anguiano\\S\\ to Bolivar\\S\\ \\S\\Anguiano. EDMS 12:18 [facility] Payment Agreement was scanned into D4P and attached to record. lg 12:21 Patient visited by Kelli Florence PCA. rs6 12:21 GC & Chlamydia Amplification Sent. rs6 12:21 Urine Culture Sent. rs6 12:21 Urinalysis Sent. rs6 12:21 Urine collected. Clean catch specimen. Urine specimen sent to lab. rs6 12:35 Patient moved to 6 js13 12:59 Patient visited by Sandra Alexandre RN. kr3 12:59 The patient / caregiver is instructed regarding the plan of care and ED course. Patient pml has correct armband on for positive identification. Placed in gown. Bed in low position. Call light in reach. Side rails up X2. gambling monitor on. Pulse ox on. NIBP on. 12:59 Hemoglobin A1c Sent. kr3 12:59 Lipase Sent. kr3 12:59 Amylase Sent. kr3 12:59 Liver Profile Sent. kr3 12:59 Basic Metabolic Profile Sent. kr3 12:59 CBC with Diff Sent. kr3 12:59 Inserted peripheral IV: 18gauge IV in left hand and blood collected. Patient tolerated pml the procedure well. 13:01 Patient visited by Princess Martino,MARTINEZ. pml 13:35 Patient visited by Princess Martino,RN. pml 14:16 Patient visited by Princess Martino,RN. pml 14:25 Patient moved to Ultrasound hgl 14:41 Patient moved to 6 hgl 15:23 Patient visited by Princess Martino,MARTINEZ. pml 15:42 [facility] is Referral Physician. dt4 15:52 US Abd Limited Returned. EDMS 15:53 Discontinued lock intact, bleeding controlled, pressure dressing applied, No pml redness/swelling at site. No procedures done that require assistance. 07/30 11:52 T-Sheet-- Draft Copy was scanned into D4P and attached to record. gb 16:19 Radiology Report was scanned into D4P and attached to record. gb Administered Medications: 07/29 12:59 Drug: NS 0.9% 2000 ml [sodium chloride 0.9 % intravenous solution] Route: IV; Rate: kr3 bolus; Site: right hand; 15:54 Follow up: IV Status: Infusion discontinued; IV Intake: 1600ml pml 13:01 Not Given (GIVEN IV INSTEADd): Insulin Regular Human 10 units Sub-Q once dt4 13:02 Drug: Insulin Regular Human 10 units [insulin regular human 100 unit/mL injection kr3 solution (0.1 mL)] {Co-Signature: pml (Princess Martino RN).} Route: IVP; Site: right hand; Point of Care Testing: Blood Glucose: 12:32 Blood Glucose: 578 mg/dL; js13 13:34 Blood Glucose: 393 mg/dL; pml 14:16 Blood Glucose: 350 mg/dL; pml 15:22 Blood Glucose: 317 mg/dL; pml Ranges: Intake: 15:54 IV: 1600.00ml; Total: 1600.00ml. pml Order Results: Lab Order: Urinalysis; SPEC'M 07/29/16 12:16 Test: APPEARANCE, URINE; Value: CLEAR; Range: CLEAR; Status: F Test: COLOR, URINE; Value: STRAW; Range: YELLOW; Status: F Test: PH,URINE; Value: 6.0; Range: 5.0-9.0; Units: UNITS; Status: F Test: SPECIFIC GRAVITY URINE AUTO; Value: 1.029; Range: 1.002-1.035; Status: F Test: PROTEIN, URINE AUTO; Value: NEGATIVE; Range: NEGATIVE; Units: mg/dL; Status: F Test: GLUCOSE, URINE (UA) AUTO; Value: 3+; Range: NEGATIVE; Abnormal: Above high normal; Units: mg/dL; Status: F Test: KETONE, URINE AUTO; Value: NEGATIVE; Range: NEGATIVE; Units: mg/dL; Status: F Test: UROBILINOGEN, URINE AUTO; Value: 0.2; Range: 0.0-2.0; Units: mg/dL; Status: F Test: BILIRUBIN, URINE AUTO; Value: NEGATIVE; Range: NEGATIVE; Status: F Test: NITRITE, URINE AUTO; Value: NEGATIVE; Range: NEGATIVE; Status: F Test: LEUKOCYTE ESTERASE, URINE AUTO; Value: NEGATIVE; Range: NEGATIVE; Status: F Test: BLOOD, URINE BLOOD; Value: NEGATIVE; Range: NEGATIVE; Status: F Test: WBC, URINE AUTO; Value: 0; Range: 0-3; Units: /HPF; Status: F Test: RBC, URINE AUTO; Value: 0; Range: 0-3; Units: /HPF; Status: F Test: BACTERIA, URINE AUTO; Value: NEGATIVE; Range: NEGATIVE; Status: F Test: SQUAMOUS EPITHELIAL CELL UR AU; Value: 0; Range: 0-6; Units: /HPF; Status: F Test: MUCUS, URINE; Value: SMALL; Range: NEGATIVE; Status: F Test: HYALINE CAST, URINE AUTO; Value: 0; Range: 0-1; Units: /LPF; Status: F Lab Order: Urine Culture; SPEC'M 07/29/16 12:16 Test: URINE CULTURE; Value: <EXTERNAL COMMENT eCWMed> FULL REPORT IN LAB NOTES (eCW and Medent).; Status: F Test: URINE CULTURE; Value: URINE CULTURE RESULT NO GROWTH; Status: F Lab Order: GC & Chlamydia Amplification; SPEC'M 07/29/16 12:16 Test: CHLAMYDIA DNA AMPLIFICATION; Value: NEGATIVE; Range: NEGATIVE; Status: F Test: GC DNA AMPLIFICATION; Value: NEGATIVE; Range: NEGATIVE; Status: F Lab Order: Fingerstick Blood Sugar; SPEC'M 07/29/16 12:28 Test: BEDSIDE GLUCOSE; Value: 578; Range: 70-105; Abnormal: Above upper panic limits; Units: MG/DL; Status: F Test Note: ; Serum Blood Draw Lab Order: CBC with Diff; SPEC'M 07/29/16 12:50 Test: WHITE BLOOD COUNT; Value: 16.3; Range: 4.0-10.0; Abnormal: Above high normal; Units: K/mm3; Status: F Test: RED BLOOD COUNT; Value: 5.05; Range: 4.30-6.10; Units: M/mm3; Status: F Test: HEMOGLOBIN; Value: 16.7; Range: 14.0-18.0; Units: g/dl; Status: F Test: HEMATOCRIT; Value: 50.3; Range: 42.0-52.0; Units: %; Status: F Test: MEAN CORPUSCULAR VOLUME; Value: 99.5; Range: 80.0-96.0; Abnormal: Above high normal; Units: fl; Status: F Test: MEAN CORPUSCULAR HEMOGLOBIN; Value: 33.1; Range: 27.0-33.0; Abnormal: Above high normal; Units: pg; Status: F Test: MEAN CORPUSCULAR HGB CONC; Value: 33.3; Range: 32.0-36.5; Units: g/dl; Status: F Test: RED CELL DISTRIBUTION WIDTH; Value: 13.4; Range: 11.5-14.5; Units: %; Status: F Test: PLATELET COUNT, AUTOMATED; Value: 124; Range: 150-450; Abnormal: Below low normal; Units: k/mm3; Status: F Test: NEUTROPHILS %; Value: 84.5; Range: 36.0-66.0; Abnormal: Above high normal; Units: %; Status: F Test: LYMPH %; Value: 8.4; Range: 24.0-44.0; Abnormal: Below low normal; Units: %; Status: F Test: MONO %; Value: 5.3; Range: 0.0-5.0; Abnormal: Above high normal; Units: %; Status: F Test: EOS %; Value: 1.0; Range: 0.0-3.0; Units: %; Status: F Test: BASO %; Value: 0.1; Range: 0.0-1.0; Units: %; Status: F Test: LARGE UNSTAINED CELL %; Value: 0.6; Range: 0.0-4.0; Units: %; Status: F Test: NEUTROPHILS #; Value: 13.8; Range: 1.8-7.7; Abnormal: Above high normal; Units: K/mm3; Status: F Test: LYMPH #; Value: 1.5; Range: 1.5-4.5; Units: K/mm3; Status: F Test: MONO #; Value: 0.9; Range: 0.0-0.8; Abnormal: Above high normal; Units: K/mm3; Status: F Test: EOS #; Value: 0.2; Range: 0.0-0.50; Units: K/mm3; Status: F Test: BASO #; Value: 0.0; Range: 0.0-0.2; Units: K/mm3; Status: F Test: LARGE UNSTAINED CELL #; Value: 0.1; Range: 0.0-0.4; Units: K/mm3; Status: F Lab Order: Basic Metabolic Profile; [facility] 07/29/16 12:50 Test: GLUCOSE, FASTING; Value: 553; Range: 70-105; Abnormal: Above upper panic limits; Units: MG/DL; Status: F Test: BLOOD UREA NITROGEN; Value: 23; Range: 7-18; Abnormal: Above high normal; Units: MG/DL; Status: F Test: CREATININE FOR GFR; Value: 1.15; Range: 0.70-1.30; Units: MG/DL; Status: F Test: GLOMERULAR FILTRATION RATE; Value: > 60.0; Range: >56; Status: F Test: SODIUM LEVEL; Value: 134; Range: 136-145; Abnormal: Below low normal; Units: MEQ/L; Status: F Test: POTASSIUM SERUM; Value: 4.4; Range: 3.5-5.1; Units: MEQ/L; Status: F Test: CHLORIDE LEVEL; Value: 99; Range: 98-107; Units: MEQ/L; Status: F Test: CARBON DIOXIDE LEVEL; Value: 24; Range: 21-32; Units: MEQ/L; Status: F Test: ANION GAP; Value: 11; Range: 8-16; Units: MEQ/L; Status: F Test: CALCIUM LEVEL; Value: 9.5; Range: 8.5-10.1; Units: MG/DL; Status: F Test Note: ; Units are mL/min/1.73 m2 Chronic Kidney Disease Staging per NKF: Stage I & II GFR >=60 Normal to Mildly Decreased Stage III GFR 30-59 Moderately Decreased Stage IV GFR 15-29 Severely Decreased Stage V GFR <15 Very Little GFR Left ESRD GFR <15 on 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 Lab Order: Liver Profile; [facility] 07/29/16 12:50 Test: AST/SGOT; Value: 118; Range: 15-37; Abnormal: Above high normal; Units: U/L; Status: F Test: ALT/SGPT; Value: 242; Range: 12-78; Abnormal: Above high normal; Units: U/L; Status: F Test: ALKALINE PHOSPHATASE; Value: 197; Range: 45-117; Abnormal: Above high normal; Units: U/L; Status: F Test: BILIRUBIN,TOTAL; Value: 1.2; Range: 0.2-1.0; Abnormal: Above high normal; Units: MG/DL; Status: F Test: BILIRUBIN,DIRECT; Value: 0.1; Range: 0.0-0.2; Units: MG/DL; Status: F Test: TOTAL PROTEIN; Value: 8.8; Range: 6.4-8.2; Abnormal: Above high normal; Units: GM/DL; Status: F Test: ALBUMIN; Value: 3.7; Range: 3.2-5.2; Units: GM/DL; Status: F Test: ALBUMIN/GLOBULIN RATIO; Value: 0.73; Range: 1.00-1.93; Abnormal: Below low normal; Status: F Lab Order: Amylase; [facility] 07/29/16 12:50 Test: AMYLASE; Value: 45; Range: 25-115; Units: U/L; Status: F Lab Order: Lipase; [facility] 07/29/16 12:50 Test: LIPASE; Value: 293; Range: 73-393; Units: U/L; Status: F Lab Order: Hemoglobin A1c; [facility] 07/29/16 12:50 Test: HEMOGLOBIN A1c; Value: 10.1; Range: 4.5-6.2; Abnormal: Above high normal; Units: %; Status: F Test: ESTIMATED AVERAGE GLUCOSE; Value: 243; Range: 60-110; Abnormal: Above high normal; Units: MG/DL; Status: F Lab Order: Fingerstick Blood Sugar; [facility] 07/29/16 13:33 Test: BEDSIDE GLUCOSE; Value: 393; Range: 70-105; Abnormal: Above high normal; Units: MG/DL; Status: F Lab Order: Fingerstick Blood Sugar; [facility] 07/29/16 14:12 Test: BEDSIDE GLUCOSE; Value: 350; Range: 70-105; Abnormal: Above high normal; Units: MG/DL; Status: F Lab Order: Fingerstick Blood Sugar; SPEC'M 07/29/16 15:21 Test: BEDSIDE GLUCOSE; Value: 317; Range: 70-105; Abnormal: Above high normal; Units: MG/DL; Status: F Radiology Order: US Abd Limited Test: US Abd Limited REASON FOR EXAMINATION: ELEVATED LIVER FUNCTIONS, NEW ONSET DIABETES; Right upper quadrant abdominal ultrasound:; ; Comparison is 09/16/2068. Images of the liver on a chest CT dated 08/31/2015.; ; There is a negative Glass's sign to transducer pressure. There is no; cholelithiasis, gallbladder wall thickening or pericholecystic fluid. The; gallbladder is somewhat contracted.; ; There is no intrahepatic or extrahepatic biliary duct dilatation, the common duct; is 4 mm in diameter per; ; The hepatic parenchyma is attenuating compatible with hepato steatosis. There is; a focal 1 cm nodule in the right lobe of the liver, similar to that identified on; the chest CT dated 08/31/2015.; ; The right kidney is normal size measuring 12 point 2 cm craniocaudad length.; There is no hydronephrosis, calculus or mass. There is a 1 cm cyst in the lower; pole.; ; Impression:; ; Findings are compatible with hepatosteatosis.; ; Focal solid hepatic nodule measuring 1 cm, similar in size to the chest CT dated; 08/31/2015.; ; Partially contracted gallbladder without cholelithiasis. No biliary duct; dilatation.; ; ; Signed by; Gabriele Diaz MD 07/29/2016 02:56 P; Outcome: 15:44 Discharge ordered by Provider. dt4 15:53 Discharge Assessment: Patient awake, alert and oriented x 3. No cognitive and/or pml functional deficits noted. Patient verbalized understanding of disposition instructions. patient administered narcotics - no. The following High Risk Discharge criteria are identified: None. Discharged to home ambulatory. Condition: good Condition: stable. Discharge instructions given to patient, Instructed on discharge instructions, follow up and referral plans. medication usage, diet, Demonstrated understanding of instructions, medications, Pt was receptive of discharge instructions/ teaching. Prescriptions given X 1. Ultrasound Study completed. Property sent home with patient. 15:55 Patient left the ED. pml Signatures: Dispatcher [employer] EDMS Hemalatha Pizarro, Reg Reg gb Sallie Crowe, Reg Reg lg Sandra Alexandre,MARTINEZ RN kr3 Gunner,Princess,RN RN pml Milagros Bay RN RN js13 Ly, Daniel hgl Fabiana Perez RN RN ttb Tiff Pascual, PA-C PA-C dt4 Kelli Florence, ROAD ENGINEER ROAD ENGINEER rs6 Zari Russo lr2 Princess Martino RN pml Chart Complete MTDD
== END 2016-07-29 15:55 | disposition home or self-care (01) ==
LOC: M ED 11:38
DX: E11.65 Type 2 diabetes mellitus with hyperglycemia (principal); R63.1 Polydipsia; R35.8 Other polyuria; K76.89 Other specified diseases of liver; I10 Essential (primary) hypertension; Z72.0 Tobacco use; Z79.899 Other long term (current) drug therapy; Z88.6 Allergy status to analgesic agent

== ENCOUNTER → 2016-08-10 | Outpatient (CLI) | payer OTHER ==
--- NOTE | 2016-08-16 02:11 | ECWPNPC ---
PATIENT NAME: ALLYN PERERA : 1960 GENDER: MALE VISIT DATE: 08/10/2016 DISCHARGE DATE: 08/10/16 1044 VISIT LOCKED DATE TIME: PHYSICIAN: ALFA CARRASCO RESOURCE: ALFA CARRASCO REASON FOR APPOINTMENT 1. POST SIJ HISTORY OF PRESENT ILLNESS HISTORY OF PRESENT ILLNESS: HERE FOR POST PROC. F/U.HAD RSIJ 07-26-16.REPORTS 2WK IMPROVEMENT POST PROCEDURE THEN PAIN RETURNED TO BASELINE 4 DAYS AGO.RATING PAIN VAS 5/10.DESCRIBES PAIN SHOOTING PAIN IN RIGHT LOW BACK AND BUTTOCK.DISCUSSED TREATMENT OPTIONS. PAIN THE PATIENT DESCRIBES THE PAIN... FALL RISK SCREENING: SCREENING :NO FALLS IN THE PAST YEAR CURRENT MEDICATIONS TAKING ATORVASTATIN CALCIUM 80 MG TABLET 1 TABLET ORALLY ONCE A DAY TAKING LISINOPRIL 10 MG TABLET 1 TABLET ORALLY ONCE A DAY TAKING ZYRTEC ALLERGY 10 MG TABLET 1 TABLET ORALLY ONCE A DAY NEEDED TAKING METOPROLOL TARTRATE 50 MG TABLET 1 TABLET ORALLY TWICE A DAY TAKING AMLODIPINE BESYLATE 10 MG TABLET 1 TABLET ORALLY ONCE A DAY TAKING GABAPENTIN 300 MG CAPSULE 3 ORALLY THREE TIMES A DAY TAKING TIZANIDINE HCL 4 MG TABLET 1 TABLET NEEDED ORALLY EVERY 8 HRS PRN TAKING MELOXICAM 15 MG TABLET 1 TABLET ORALLY TAKE DAILY FOR 5 DAYS, OFF FOR 2 TAKING BUPROPION HCL (SR) 150 MG TABLET EXTENDED RELEASE 12 HOUR 1 TABLET ORALLY TWICE A DAY TAKING METFORMIN HCL 1000 MG TABLET 1 TABLET WITH MEALS ORALLY TWICE A DAY TAKING BLOOD GLUCOSE TEST STRIP - STRIP 1 STRIP IN VITRO DX:E11.65 TWICE DAILY TAKING BLOOD GLUCOSE METER - KIT 1 METER DX:E11.65 TWICE DAILY TAKING BD ULTRA-FINE 33 LANCETS - MISCELLANEOUS 1 LANCET INTRADERMALLY TWICE DAILY DX:E11.65 TAKING ALCOHOL PREP PAD 70 % PAD 1 TOPICALLY TWICE DAILY DX:E11.65 NOT-TAKING VALTREX 500 MG TABLET 1 TABLET ORALLY DAILY NOT-TAKING METFORMIN HCL 500 MG TABLET 1 TABLET WITH MEALS ORALLY TWICE A DAY NOT-TAKING DIFLUCAN 100 MG TABLET 1 TABLET ORALLY ONCE A DAY, NOTES: 07-27-16 0900 NOT-TAKING KETOCONAZOLE 2 % CREAM 1 APPLICATION TO AFFECTED AREA EXTERNALLY THREE TIMES DAILY, NOTES: 07-27-16 NOT-TAKING HYDROCHLOROTHIAZIDE 25 MG TABLET 1/2 TAB(S) ORALLY ONCE A DAY, NOTES: > 2 MONTHS NOT-TAKING FIRST-MOUTHWASH BLM - SUSPENSION DIRECTED MOUTH/THROAT FOUR TIMES DAILY NEEDED MEDICATION LIST REVIEWED AND RECONCILED WITH THE PATIENT PAST MEDICAL HISTORY HTN SHORT'S PALSY JOINT PAIN UNSPECIFIED ESSENTIAL HYPERTENSION PAIN IN JOINT, SHOULDER REGION NONALLOPATHIC LESION OF THORACIC REGION, NOT ELSEWHERE CLASSIFIED NONDEPENDENT TOBACCO USE DISORDER SMOKING MIGRAINE WITHOUT AURA, WITH INTRACTABLE MIGRAINE, SO STATED, WITHOUT MENTION OF STATUS MIGRAINOSUS TRANSAMINITIS HYPERGLYCEMIA ALLERGY ALLERGIC CONJUNCTIVITIS HYPERLIPIDEMIA ESSENTIAL HYPERTENSION ASCVD10 (2016)- 11.5% DIEBETIC TYPE 2 ALLERGIES ASPIR-81: VOMITING: ALLERGY SOCIAL HISTORY GENERAL: TOBACCO USE ARE YOU A:NONSMOKER LEARNING BARRIERS / SPECIAL NEEDS ORIENTED TO PLAN OF CARE: PATIENT, PAIN MANAGEMENT PATIENT, ORIENTED TO PLAN OF CARE: PATIENT, PAIN MANAGEMENT PATIENT. NEW PATIENT PAIN DIARY TODAY'S VISITNOTES FROM 0-10, WHAT LEVEL IS YOUR PAIN TODAY?0 PAIN CLINIC PFS, CLERGY, PUBLIC HEALTH REFERRALS PFS REFERRAL NEEDED?NO CLERGY REFERRAL NEEDED?NO PUBLIC HEALTH REFERRAL NEEDED?NO WAS THE PROVIDER NOTIFIED OF ANY PERTINENT INFO?NO PFS REFERRAL NEEDED?NO CLERGY REFERRAL NEEDED?NO PUBLIC HEALTH REFERRAL NEEDED?NO WAS THE PROVIDER NOTIFIED OF ANY PERTINENT INFO?NO REVIEW OF SYSTEMS CONSTITUTIONAL: ANY CHANGE IN YOUR MEDICAL CONDITION? NO . CHILLS NO . FEVER NO . INFECTION: DO YOU HAVE NEW INFECTIONS? NO . DO YOU HAVE HISTORY OF MRSA? NO . MUSCULOSKELETAL: ANY NEW PATTERNS OF PAIN OR NUMBNESS? YES PAIN CHANGED AFTER PROCEDURE . GASTROENTEROLOGY: ANY NEW CHANGE IN BOWEL CONTROL? NO . GENITOURINARY: ANY NEW CHANGE IN BLADDER CONTROL? NO . IS THERE A CHANCE YOU COULD BE ? NO . HEMATOLOGY/LYMPH: DO YOU TAKE ANY BLOOD THINNERS? (FOR EXAMPLE- COUMADIN, PLAVIX, AGGRENOX, PLATEL, PRADAXA, OR XARELTO) NO . WHEN WAS YOUR LAST DOSE? DATE: TIME: . NEUROLOGY: HAVE YOU FALLEN IN THE PAST 6 MONTHS? NO . ANY NEW EXTREMITY NUMBNESS OR WEAKNESS? NO . CARDIOLOGY: DO YOU HAVE A PACEMAKER OR DEFIBRILLATOR? NO . RESPIRATORY: HAVE YOU BEEN SICK IN THE PAST WEEK? NO . FEVER NO . FLU LIKE SYMPTOMS? NO . COUGH NO . INTEGUMENTARY: DO YOU HAVE ANY RASHES OR OPEN SORES? NO . ALLERGIC/IMMUNO: ARE YOU ALLERGIC TO SHELLFISH OR IV DYE? NO . ANY NEW ALLERGIES? NO . PSYCHIATRIC: DO YOU HAVE THOUGHTS OF HURTING YOURSELF OR SOMEONE ELSE? NO . ARE YOU ABUSED, NEGLECTED, OR IN AN UNSAFE ENVIRONMENT? NO . ENDOCRINOLOGY: ARE YOU DIABETIC? YES NEWLY DIAGNOSED . OTHER: DO YOU NEED ANY PRESCRIPTIONS? YES GABAPENTIN . IF YES, PLEASE LIST: ____ . ANY NEW PROBLEMS WITH YOUR MEDICATIONS? NO . WHEN DID YOU LAST EAT? ____ . WHEN DID YOU LAST DRINK? ____ . WHAT DID YOU LAST DRINK? ____ . NAME OF PERSON DRIVING YOU HOME? ____ . DO YOU HAVE ANY OTHER QUESTIONS OR CONCERNS NO . REVIEWED BY: PROVIDER: ALFA JIMENEZ . VITAL SIGNS WT 181.6 LBS, HT 66 IN, BMI 29.31 INDEX, BP 145/98 MM HG, HR 58 /MIN, RR 16 /MIN, TEMP 98.4 F, OXYGEN SAT % 91%, NA INITIALS SC 09:28, REVIEWED BY: KG. EXAMINATION GENERAL EXAMINATION: LUNGS:LUNG SOUNDS ARE CLEAR. HEART:HEART RATE REGULAR. MUSCULOSKELETAL:*, MUSCLE STRENGTH TESTING 5/5 BILATERAL LOWER EXTREMITIES.SPECIFIC POINT TENDERNESS OVER RSIJ.. DIAGNOSTIC:MRI L/S SPINE 07-06-16-REVIEWED.. 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 PROCEDURE CODES FA211 ESTABILISHED PATIENT [facility] CHARGE DISPOSITION & COMMUNICATION FOLLOW UP 2WK POST (REASON: RIGHT SIJ) ELECTRONICALLY SIGNED BY BARBARA HUFF ON 08/15/2016 AT 01:38 PM EST DISCLAIMER : THIS IS A VISIT SUMMARY EXTRACTED FROM THE [employer] CHART. IT IS NOT A COPY OF THE [employer] PROGRESS NOTE. DARLIN
== END ==
LOC: M PAIN 09:20
PROVIDERS: ATTEND Nurse Practitioner Family
DX: Z09 Encounter for follow-up examination after completed treatment for conditions other than malignant neoplasm (principal); G89.29 Other chronic pain; M54.5 Low back pain; M53.3 Sacrococcygeal disorders, not elsewhere classified; I10 Essential (primary) hypertension; E11.9 Type 2 diabetes mellitus without complications; E78.5 Hyperlipidemia, unspecified; J30.9 Allergic rhinitis, unspecified; F43.21 Adjustment disorder with depressed mood; F17.210 Nicotine dependence, cigarettes, uncomplicated; Z88.6 Allergy status to analgesic agent; Z79.84 Long term (current) use of oral hypoglycemic drugs; Z79.899 Other long term (current) drug therapy; Z86.69 Personal history of other diseases of the nervous system and sense organs

== ENCOUNTER → 2016-09-08 | Outpatient (CLI) | payer MEDICAID ==
[~2016-09-08] MED LIST changes: +BUPIVACAINE HCL 0.25% 30 ML VIAL As Ordered ONE; +ISOVUE-M 300 61% 15ML VIAL (Q9967) As Ordered ONE; +LIDOCAINE 1% SDV INJ 30 ML VIAL As Ordered ONE; +TRIAMCINOLONE ACETONIDE SUSP 40 MG/ML VIAL (J3301) As Ordered ONE; +diazePAM 5 MG TAB As Ordered ONE; +oxyCODONE 5MG TAB As Ordered ONE
--- NOTE | 2016-09-08 16:21 | REP ---
FLUOROSCOPIC GUIDANCE: The images were reviewed with Dr. Chu. The patient has a history of back pain with radiculopathy. The portable C-ARM was provided in the OR by Dr. Casarez for fluoroscopic guidance. 3 intraoperative fluoroscopic spot films were obtained for needle placement verification for right piriformis injection. The films are on the PACS system and are available for review. 7 seconds of fluoroscopic time was utilized for this procedure. Reviewed by ADAMARIS Etienne 09/08/2016 04:29 PEdited and Signed by Gabriele Chu MD 09/09/2016 01:15 P
--- NOTE | 2016-09-14 02:34 | ECWPNPC ---
PATIENT NAME: ALLYN PERERA : 1960 GENDER: MALE VISIT DATE: 09/08/2016 DISCHARGE DATE: 09/08/16 1216 VISIT LOCKED DATE TIME: PHYSICIAN: KIARA MAYER RESOURCE: KIARA MAYER REASON FOR APPOINTMENT 1. RIGHT SIJ HISTORY OF PRESENT ILLNESS HISTORY OF PRESENT ILLNESS: PAIN THE PATIENT DESCRIBES THE PAIN... FALL RISK SCREENING: SCREENING :NO FALLS IN THE PAST YEAR CURRENT MEDICATIONS TAKING ATORVASTATIN CALCIUM 80 MG TABLET 1 TABLET ORALLY ONCE A DAY, NOTES: 09-07-162199 TAKING LISINOPRIL 10 MG TABLET 1 TABLET ORALLY ONCE A DAY, NOTES: 09-07-16 1400 TAKING ZYRTEC ALLERGY 10 MG TABLET 1 TABLET ORALLY ONCE A DAY NEEDED, NOTES: 09-06-16 1400 TAKING METOPROLOL TARTRATE 50 MG TABLET 1 TABLET ORALLY TWICE A DAY, NOTES: 09-08-16 06 TAKING AMLODIPINE BESYLATE 10 MG TABLET 1 TABLET ORALLY ONCE A DAY, NOTES: 09-08-16 0600 TAKING TIZANIDINE HCL 4 MG TABLET 1 TABLET NEEDED ORALLY EVERY 8 HRS PRN, NOTES: 09-07-16=2200 TAKING BUPROPION HCL (SR) 150 MG TABLET EXTENDED RELEASE 12 HOUR 1 TABLET ORALLY TWICE A DAY, NOTES: 09-07-162199 TAKING METFORMIN HCL 1000 MG TABLET 1 TABLET WITH MEALS ORALLY TWICE A DAY, NOTES: 09-07-16 1800 TAKING BLOOD GLUCOSE TEST STRIP - STRIP 1 STRIP IN VITRO DX:E11.65 TWICE DAILY TAKING BLOOD GLUCOSE METER - KIT 1 METER DX:E11.65 TWICE DAILY TAKING BD ULTRA-FINE 33 LANCETS - MISCELLANEOUS 1 LANCET INTRADERMALLY TWICE DAILY DX:E11.65 TAKING ALCOHOL PREP PAD 70 % PAD 1 TOPICALLY TWICE DAILY DX:E11.65 TAKING GABAPENTIN 600 MG TABLET 1 ORALLY THREE TIMES A DAY, NOTES: 09-08-16 0600 TAKING MELOXICAM 15 MG TABLET 1 TABLET ORALLY TAKE DAILY FOR 5 DAYS, OFF FOR 2, NOTES: 09-05-16 NOT-TAKING VALTREX 500 MG TABLET 1 TABLET ORALLY DAILY NOT-TAKING METFORMIN HCL 500 MG TABLET 1 TABLET WITH MEALS ORALLY TWICE A DAY NOT-TAKING DIFLUCAN 100 MG TABLET 1 TABLET ORALLY ONCE A DAY, NOTES: 07-27-16 0900 NOT-TAKING KETOCONAZOLE 2 % CREAM 1 APPLICATION TO AFFECTED AREA EXTERNALLY THREE TIMES DAILY, NOTES: 07-27-16 NOT-TAKING HYDROCHLOROTHIAZIDE 25 MG TABLET 1/2 TAB(S) ORALLY ONCE A DAY, NOTES: > 2 MONTHS NOT-TAKING FIRST-MOUTHWASH BLM - SUSPENSION DIRECTED MOUTH/THROAT FOUR TIMES DAILY NEEDED MEDICATION LIST REVIEWED AND RECONCILED WITH THE PATIENT PAST MEDICAL HISTORY HTN SHORT'S PALSY JOINT PAIN UNSPECIFIED ESSENTIAL HYPERTENSION PAIN IN JOINT, SHOULDER REGION NONALLOPATHIC LESION OF THORACIC REGION, NOT ELSEWHERE CLASSIFIED NONDEPENDENT TOBACCO USE DISORDER SMOKING MIGRAINE WITHOUT AURA, WITH INTRACTABLE MIGRAINE, SO STATED, WITHOUT MENTION OF STATUS MIGRAINOSUS TRANSAMINITIS HYPERGLYCEMIA ALLERGY ALLERGIC CONJUNCTIVITIS HYPERLIPIDEMIA ESSENTIAL HYPERTENSION ASCVD10 (2016)- 11.5% DIEBETIC TYPE 2 ALLERGIES ASPIR-81: VOMITING: ALLERGY REVIEW OF SYSTEMS CONSTITUTIONAL: ANY CHANGE IN YOUR MEDICAL CONDITION? NO . CHILLS NO . FEVER NO . INFECTION: DO YOU HAVE NEW INFECTIONS? NO . DO YOU HAVE HISTORY OF MRSA? NO . MUSCULOSKELETAL: ANY NEW PATTERNS OF PAIN OR NUMBNESS? NO . GASTROENTEROLOGY: ANY NEW CHANGE IN BOWEL CONTROL? NO . GENITOURINARY: ANY NEW CHANGE IN BLADDER CONTROL? NO . IS THERE A CHANCE YOU COULD BE ? NO . HEMATOLOGY/LYMPH: DO YOU TAKE ANY BLOOD THINNERS? (FOR EXAMPLE- COUMADIN, PLAVIX, AGGRENOX, PLATEL, PRADAXA, OR XARELTO) NO . WHEN WAS YOUR LAST DOSE? DATE: TIME: . NEUROLOGY: HAVE YOU FALLEN IN THE PAST 6 MONTHS? NO . ANY NEW EXTREMITY NUMBNESS OR WEAKNESS? NO . CARDIOLOGY: DO YOU HAVE A PACEMAKER OR DEFIBRILLATOR? NO . RESPIRATORY: HAVE YOU BEEN SICK IN THE PAST WEEK? NO . FEVER NO . FLU LIKE SYMPTOMS? NO . COUGH NO . INTEGUMENTARY: DO YOU HAVE ANY RASHES OR OPEN SORES? NO . ALLERGIC/IMMUNO: ARE YOU ALLERGIC TO SHELLFISH OR IV DYE? NO . ANY NEW ALLERGIES? NO . PSYCHIATRIC: DO YOU HAVE THOUGHTS OF HURTING YOURSELF OR SOMEONE ELSE? NO . ARE YOU ABUSED, NEGLECTED, OR IN AN UNSAFE ENVIRONMENT? NO . ENDOCRINOLOGY: ARE YOU DIABETIC? YES . OTHER: DO YOU NEED ANY PRESCRIPTIONS? NO . IF YES, PLEASE LIST: ____ . ANY NEW PROBLEMS WITH YOUR MEDICATIONS? NO . WHEN DID YOU LAST EAT? ____ . WHEN DID YOU LAST DRINK? ____ . WHAT DID YOU LAST DRINK? ____ . NAME OF PERSON DRIVING YOU HOME? ____ . DO YOU HAVE ANY OTHER QUESTIONS OR CONCERNS NO . REVIEWED BY: PROVIDER: . VITAL SIGNS WT 189 LBS, HT 66 IN, BMI 30.50 INDEX, BP 152/91 MM HG, HR 55 /MIN, RR 16 /MIN, TEMP 97.9 F, OXYGEN SAT % 95, NA INITIALS SC 10:33, REVIEWED BY: KG. ASSESSMENTS MYALGIA - M79.1 (PRIMARY) PROCEDURES PREOPERATIVE DIAGNOSIS: RIGHT PIRIFORMIS SYNDROME. MYALGIAPOSTOPERATIVE DIAGNOSIS: RIGHT PIRIFORMIS SYNDROME. MYALGIAPROCEDURE: RIGHT PIRIFORMIS MUSCLE BLOCK UNDER FLUOROSCOPIC GUIDANCE.ANESTHESIA: LOCAL.SURGEON: KIARA QUEZADA M.D.PREOPERATIVE NOTE: THE PATIENT HAS HISTORY OF CHRONIC LOW BACK PAIN. I EVALUATED THE PATIENT AND REVIEWED THE CHART. WE BOTH AGREED ON PERFORMING A RIGHT PIRIFORMIS MUSCLE BLOCK UNDER FLUOROSCOPIC GUIDANCE. I WENT THROUGH THE RISKS, ALTERNATIVES AND BENEFITS ASSOCIATED WITH THIS PROCEDURE AND THE PATIENT EXPRESSED THAT SHE WOULD LIKE TO PROCEED. THE PATIENT DENIES UNEXPLAINABLE WEIGHT LOSS, FEVER, CHILLS, OR CHANGES IN URINARY OR BOWEL CONTROL.PROCEDURE NOTE: AFTER CONSENT WAS TAKEN, THE PATIENT WAS BROUGHT TO THE PROCEDURE ROOM AND THE PATIENT WAS PLACED IN THE PRONE POSITION. THE LUMBOSACRAL AREA WAS CLEANED WITH CHLORAPREP SOLUTION AND DRAPED ASEPTICALLY. THE PROCEDURE WAS DONE UNDER STERILE CONDITIONS. LATERALITY WAS CHECK WITH THE PATIENT AND THE STAFF AT THE TIME OF TIME OUT. UNDER FLUOROSCOPIC GUIDANCE, THE TARGET POINT WAS SELECTED AT THE MIDDLE AREA BETWEEN THE RIGHT GREATER TROCHANTER OF THE FEMUR AND THE BORDER OF THE SACRUM. LIDOCAINE WAS USED TO NUMB THE SKIN AND THE SUBCUTANEOUS TISSUE BELOW IT. A SPINAL NEEDLE 22 GAUGE, WAS ADVANCED UNDER FLUOROSCOPIC GUIDANCE TO THE SUBSTANCE OF THE RIGHT PIRIFORMIS MUSCLE. WHEN APPROPRIATE POSITION OF THE NEEDLE WAS ACHIEVED, ISOVUE-M DYE 30%, 0.25 ML, WAS INJECTED SHOWING ADEQUATE SPREAD OF THE DYE. THEN A SOLUTION OF 30 ML OF BUPIVACAINE, 0.25%, AND KENALOG 40 MG WAS INJECTED. THERE WAS NO EVIDENCE OF BLOOD, PARESTHESIAS OR CEREBROSPINAL FLUID. THE PATIENT WAS SENT TO THE RECOVERY ROOM WHERE SHE WAS MOVING HER EXTREMITIES AND DOING WELL. THERE WERE NO COMPLICATIONS DURING THE PROCEDURE. FLUOROSCOPY TIME WAS 7 SECONDS.POSTOPERATIVE NOTE: I DISCUSSED ALTERNATIVES WITH THE PATIENT. I AM LOOKING FOR LONG-LASTING PAIN RELIEF WITH THIS INTERVENTION. THERE WERE NO COMPLICATIONS. FURTHER RECOMMENDATIONS DEPEND ON HOW THE PATIENT DOES. INSTRUCTIONS WERE GIVEN, QUESTIONS WERE ANSWERED, PATIENT REPORTS UNDERSTANDING AND AGREES WITH THE PLAN. I, JENNIFER GAFFNEY, DOCUMENTED THE ABOVE INFORMATION ACTING A SCRIBE FOR DR. MAYER. I HAVE REVIEWED THE ABOVE DOCUMENT, WRITTEN BY JENNIFER GAFFNEY SCRIBE AND I VERIFY THAT IT IS ACCURATE. DIAGNOSTIC IMAGING [facility] FLUORO GUIDANCE (PAIN)[id number] PROCEDURE CODES 69009 INJ TRIGGER POINT 1/2 MUSCL 6045F RADXPS IN END [id number] PXD DISPOSITION & COMMUNICATION FOLLOW UP 3 WEEKS ELECTRONICALLY SIGNED BY KIARA MAYER MD ON 09/12/2016 AT 05:49 PM EDT DISCLAIMER : THIS IS A VISIT SUMMARY EXTRACTED FROM THE [employer] CHART. IT IS NOT A COPY OF THE [employer] PROGRESS NOTE. MTDD
== END ==
LOC: M PAIN 10:20
PROVIDERS: ATTEND Anesthesiology
DX: G89.29 Other chronic pain (principal); M79.1 Myalgia; M54.5 Low back pain; I10 Essential (primary) hypertension; E78.5 Hyperlipidemia, unspecified; J30.9 Allergic rhinitis, unspecified; E11.9 Type 2 diabetes mellitus without complications; Z88.6 Allergy status to analgesic agent; Z79.84 Long term (current) use of oral hypoglycemic drugs; Z79.899 Other long term (current) drug therapy; Z87.891 Personal history of nicotine dependence
CPT/HCPCS: 64445; 77002; J3301; Q9967

== ENCOUNTER → 2016-09-14 | Outpatient (REF) | payer MEDICAID ==
[~2016-09-14] MED LIST changes: -BUPIVACAINE HCL 0.25% 30 ML VIAL As Ordered ONE; -ISOVUE-M 300 61% 15ML VIAL (Q9967) As Ordered ONE; -LIDOCAINE 1% SDV INJ 30 ML VIAL As Ordered ONE; -TRIAMCINOLONE ACETONIDE SUSP 40 MG/ML VIAL (J3301) As Ordered ONE; -diazePAM 5 MG TAB As Ordered ONE; -oxyCODONE 5MG TAB As Ordered ONE
== END ==
LOC: M LAB REF 15:29
PROVIDERS: ATTEND Ophthalmology
DX: H02.403 Unspecified ptosis of bilateral eyelids (principal)

== ENCOUNTER → 2016-10-04 | Outpatient (CLI) | payer MEDICAID ==
--- NOTE | 2016-10-10 00:07 | ECWPNPC ---
PATIENT NAME: ALLYN PERERA : 1960 GENDER: MALE VISIT DATE: 10/04/2016 DISCHARGE DATE: 10/04/16 1611 VISIT LOCKED DATE TIME: PHYSICIAN: KIARA MAYER RESOURCE: KIARA MAYER REASON FOR APPOINTMENT 1. LOW BACK PAIN HISTORY OF PRESENT ILLNESS HISTORY OF PRESENT ILLNESS: PAIN THE PATIENT DESCRIBES THE PAIN... 56 YEAR OLD MALE PATIENT WITH HISTORY OF CHRONIC LOW BACK PAIN. PATIENT DESCRIBES THE PAIN ACHING AND SHARP WITH A PAIN SCORE OF 2/10. PATIENT RECEIVED A SACROILIAC JOINT BLOCK ON 09/08/16 AND STATES THAT THE INJECTION HAS AIDED IN PAIN RELIEF AND WAS AN INCREASE IN MOBILITY AND FUNCTIONALITY AND A DECREASE IN PAIN. CURRENTLY THE PATIENT IS USING GABAPENTIN AND TIZANIDINE TO AID IN PAIN RELIEF WHICH HE REPORTS TAKES THE EDGE OFF. MR. PERERA STATES THAT IF HE STANDS OR SITS FOR OVER AN HOUR AND A HALF THE PAIN WILL INCREASE TO 2-3 AND RESTING WILL DECREASE THE PAIN. PATIENT DENIES UNEXPLAINABLE WEIGHT LOSS, FEVER, CHILLS, NEW CHANGES ON HIS URINARY OR BOWEL CONTROL. FALL RISK SCREENING: SCREENING :NO FALLS IN THE PAST YEAR CURRENT MEDICATIONS TAKING ATORVASTATIN CALCIUM 80 MG TABLET 1 TABLET ORALLY ONCE A DAY TAKING LISINOPRIL 10 MG TABLET 1 TABLET ORALLY ONCE A DAY TAKING ZYRTEC ALLERGY 10 MG TABLET 1 TABLET ORALLY ONCE A DAY NEEDED TAKING METOPROLOL TARTRATE 50 MG TABLET 1 TABLET ORALLY TWICE A DAY TAKING AMLODIPINE BESYLATE 10 MG TABLET 1 TABLET ORALLY ONCE A DAY TAKING TIZANIDINE HCL 4 MG TABLET 1 TABLET NEEDED ORALLY EVERY 8 HRS PRN TAKING BUPROPION HCL ER (SR) 150 MG TABLET EXTENDED RELEASE 12 HOUR 1 TABLET ORALLY TWICE A DAY TAKING METFORMIN HCL 1000 MG TABLET 1 TABLET WITH MEALS ORALLY TWICE A DAY TAKING BLOOD GLUCOSE TEST STRIP - STRIP 1 STRIP IN VITRO DX:E11.65 TWICE DAILY TAKING BLOOD GLUCOSE METER - KIT 1 METER DX:E11.65 TWICE DAILY TAKING BD LANCET ULTRAFINE 33G - MISCELLANEOUS 1 LANCET INTRADERMALLY TWICE DAILY DX:E11.65 TAKING ALCOHOL PREP PAD 70 % PAD 1 TOPICALLY TWICE DAILY DX:E11.65 TAKING GABAPENTIN 600 MG TABLET 1 ORALLY THREE TIMES A DAY TAKING MELOXICAM 15 MG TABLET 1 TABLET ORALLY TAKE DAILY FOR 5 DAYS, OFF FOR 2 NOT-TAKING VALTREX 500 MG TABLET 1 TABLET ORALLY DAILY NOT-TAKING METFORMIN HCL 500 MG TABLET 1 TABLET WITH MEALS ORALLY TWICE A DAY NOT-TAKING DIFLUCAN 100 MG TABLET 1 TABLET ORALLY ONCE A DAY, NOTES: 07-27-16 0900 NOT-TAKING KETOCONAZOLE 2 % CREAM 1 APPLICATION TO AFFECTED AREA EXTERNALLY THREE TIMES DAILY, NOTES: 07-27-16 NOT-TAKING HYDROCHLOROTHIAZIDE 25 MG TABLET 1/2 TAB(S) ORALLY ONCE A DAY, NOTES: > 2 MONTHS NOT-TAKING FIRST-MOUTHWASH BLM - SUSPENSION DIRECTED MOUTH/THROAT FOUR TIMES DAILY NEEDED MEDICATION LIST REVIEWED AND RECONCILED WITH THE PATIENT PAST MEDICAL HISTORY HTN SHORT'S PALSY JOINT PAIN UNSPECIFIED ESSENTIAL HYPERTENSION PAIN IN JOINT, SHOULDER REGION NONALLOPATHIC LESION OF THORACIC REGION, NOT ELSEWHERE CLASSIFIED NONDEPENDENT TOBACCO USE DISORDER SMOKING MIGRAINE WITHOUT AURA, WITH INTRACTABLE MIGRAINE, SO STATED, WITHOUT MENTION OF STATUS MIGRAINOSUS TRANSAMINITIS HYPERGLYCEMIA ALLERGY ALLERGIC CONJUNCTIVITIS HYPERLIPIDEMIA ESSENTIAL HYPERTENSION ASCVD10 (2016)- 11.5% DIEBETIC TYPE 2 ALLERGIES ASPIR-81: VOMITING: ALLERGY SURGICAL HISTORY RIGHT EPIDIDYMAL CYST REMOVAL 07/08/15 FAMILY HISTORY NO FAMILY HISTORY DOCUMENTED. SOCIAL HISTORY GENERAL: PAIN CLINIC PFS, CLERGY, PUBLIC HEALTH REFERRALS CLERGY REFERRAL NEEDED?NO WAS THE PROVIDER NOTIFIED OF ANY PERTINENT INFO?NO PFS REFERRAL NEEDED?NO PUBLIC HEALTH REFERRAL NEEDED?NO PATIENT: ____. HOSPITALIZATION/MAJOR DIAGNOSTIC PROCEDURE NO HOSPITALIZATION HISTORY. REVIEW OF SYSTEMS CONSTITUTIONAL: ANY CHANGE IN YOUR MEDICAL CONDITION? YES, NEW DIABETIC ON MEDS RIGHT LOWER LEG CRAMPING IS NEW . CHILLS NO . FEVER NO . INFECTION: DO YOU HAVE NEW INFECTIONS? NO . DO YOU HAVE HISTORY OF MRSA? NO . MUSCULOSKELETAL: ANY NEW PATTERNS OF PAIN OR NUMBNESS? YES, DOWN RIGHT LEG . GASTROENTEROLOGY: ANY NEW CHANGE IN BOWEL CONTROL? NO . GENITOURINARY: ANY NEW CHANGE IN BLADDER CONTROL? NO . IS THERE A CHANCE YOU COULD BE ? NO . HEMATOLOGY/LYMPH: DO YOU TAKE ANY BLOOD THINNERS? (FOR EXAMPLE- COUMADIN, PLAVIX, AGGRENOX, PLATEL, PRADAXA, OR XARELTO) NO . WHEN WAS YOUR LAST DOSE? DATE: TIME: . NEUROLOGY: HAVE YOU FALLEN IN THE PAST 6 MONTHS? NO . ANY NEW EXTREMITY NUMBNESS OR WEAKNESS? NO . CARDIOLOGY: DO YOU HAVE A PACEMAKER OR DEFIBRILLATOR? NO . RESPIRATORY: HAVE YOU BEEN SICK IN THE PAST WEEK? NO . FEVER NO . FLU LIKE SYMPTOMS? NO . COUGH NO . INTEGUMENTARY: DO YOU HAVE ANY RASHES OR OPEN SORES? NO . ALLERGIC/IMMUNO: ARE YOU ALLERGIC TO SHELLFISH OR IV DYE? NO . ANY NEW ALLERGIES? NO . PSYCHIATRIC: DO YOU HAVE THOUGHTS OF HURTING YOURSELF OR SOMEONE ELSE? NO . ARE YOU ABUSED, NEGLECTED, OR IN AN UNSAFE ENVIRONMENT? NO . ENDOCRINOLOGY: ARE YOU DIABETIC? YES, RESCENT BLOOD SUGAR 130 . OTHER: DO YOU NEED ANY PRESCRIPTIONS? YES . IF YES, PLEASE LIST: GABAPENTIN, TIZANIDINE, CYMBALTA FOR OCTOBER . ANY NEW PROBLEMS WITH YOUR MEDICATIONS? NO . WHEN DID YOU LAST EAT? ____ . WHEN DID YOU LAST DRINK? ____ . WHAT DID YOU LAST DRINK? ____ . NAME OF PERSON DRIVING YOU HOME? ____ . DO YOU HAVE ANY OTHER QUESTIONS OR CONCERNS NO . REVIEWED BY: PROVIDER: KIARA MAYER MD . VITAL SIGNS WT 188.8 LBS, HT 66 IN, BMI 30.47 INDEX, BP 144/80 MM HG, HR 73 /MIN, RR 16 /MIN, TEMP 97.7 F, OXYGEN SAT % 96%, NA INITIALS SC 15:04, REVIEWED BY: NL. EXAMINATION : PATIENT IS ALERT O X 3 AND COOPERATIVE. LIMPING RIGHT LEG. RIGHT LEG WEAKER THEN THE LEFT AT EXTENSION AND FLEXION. TENDERNESS IN PIRIFORMIS MUSCLE. MRI DONE ON 07/06/16 SHOWS DISC BULGES AT L3-L4, L4-L5, AND L5-S1 AND FACET HYPERTROPHY. ASSESSMENTS MYALGIA - M79.1 (PRIMARY) INTERVERTEBRAL DISC DISORDERS WITH RADICULOPATHY, LUMBAR REGION - M51.16 INTERVERTEBRAL DISC DISORDERS WITH RADICULOPATHY, LUMBOSACRAL REGION - M51.17 TREATMENT MYALGIA NOTES: WE DISCUSSED SEVERAL ISSUES WITH MR. PERERA'S PAIN MANAGEMENT CASE. AT THIS TIME THE PATIENT WILL CONTINUE WITH THE SAME MEDICATION REGIME BEFORE. PATIENT IS USING THE GABAPENTIN FOR THE NEUROPATHIC PAIN AND TIZANIDINE FOR THE MUSCLE SPASMS AT NIGHT. AFTER VIEWING WHERE THE PATIENT HAS THE MOST PAIN I WOULD LIKE TO MOVE FORWARD WITH A PIRIFORMIS BLOCK. WE DISCUSSED THE RISKS, BENENFITS, AND ALTNERATIVES OF THE INJECTION AND THE PATIENT WOULD LIKE TO PROCEED AT THIS TIME. WE ALSO DISCUSSED LUMBAR EPIDURAL'S WHICH THE PATIENT IS A CANDIDATE IN THE FUTURE IF THE PIRIFORMIS DOES NOT GIVE THE PATIENT ADEQUATE RELIEF. INSTRUCTIONS WERE GIVEN, QUESTIONS WERE ANSWERED, PATIENT REPORTS UNDERSTANDING AND AGREES WITH THE PLAN. I, MOISÉS PATE, DOCUMENTED THE ABOVE INFORMATION ACTING A SCRIBE FOR DR. MAYER. I HAVE REVIEWED THE ABOVE DOCUMENT, WRITTEN BY MOISÉS KATE AND I VERIFY THAT IT IS ACCURATE. OTHERS REFILL TIZANIDINE HCL TABLET, 4 MG, 1 TABLET NEEDED, ORALLY NEEDED FOR SPASMS AND PAIN, BEFORE BEDTIME MAY REPEAT IN 4 HRS MDD2, 30 DAY(S), 60, REFILLS 2 REFILL GABAPENTIN TABLET, 600 MG, 1, ORALLY, THREE TIMES A DAY, 30 DAY(S), 90, REFILLS 2 PROCEDURE CODES FA211 ESTABILISHED PATIENT [facility] CHARGE G8427 DOC MEDS VERIFIED W/PT OR RE G8730 PAIN ASSESS POS TOOL F/U PLAN DOC DISPOSITION & COMMUNICATION FOLLOW UP PIRIFORMIS AFTER APPROVAL ELECTRONICALLY SIGNED BY KIARA MAYER MD ON 10/09/2016 AT 04:58 PM EDT DISCLAIMER : THIS IS A VISIT SUMMARY EXTRACTED FROM THE [employer] CHART. IT IS NOT A COPY OF THE [employer] PROGRESS NOTE. MTDD
== END ==
LOC: M PAIN 15:00
PROVIDERS: ATTEND Anesthesiology
DX: G89.29 Other chronic pain (principal); M51.16 Intervertebral disc disorders with radiculopathy, lumbar region; M51.17 Intervertebral disc disorders with radiculopathy, lumbosacral region; M79.1 Myalgia; I10 Essential (primary) hypertension; Z72.0 Tobacco use; E11.9 Type 2 diabetes mellitus without complications; Z88.6 Allergy status to analgesic agent; Z79.84 Long term (current) use of oral hypoglycemic drugs; Z79.899 Other long term (current) drug therapy

== ENCOUNTER → 2016-10-06 | Outpatient (REF) | payer MEDICAID ==
[2016-10-06 20:11] LABS: CALCIUM OXALATE CRYSTALS SMALL
== END ==
LOC: M SFHCPLAZ 16:58
DX: R30.0 Dysuria (principal)

== ENCOUNTER → 2016-10-11 | Outpatient (REF) | payer MEDICAID ==
[2016-10-11 16:32] LABS: ALBUMIN 3.2 GM/DL (3.2-5.2); ANION GAP 10 MEQ/L (8-16); BLOOD UREA NITROGEN 22 MG/DL (7-18); CALCIUM LEVEL 9.4 MG/DL (8.5-10.1); CARBON DIOXIDE LEVEL 25 MEQ/L (21-32); CHLORIDE LEVEL 106 MEQ/L (98-107); GLOMERULAR FILTRATION RATE > 60.0 (>56); GLUCOSE, FASTING 155 MG/DL (70-105); PHOSPHORUS LEVEL 2.9 MG/DL (2.5-4.9); POTASSIUM SERUM 4.2 MEQ/L (3.5-5.1); SODIUM LEVEL 141 MEQ/L (136-145)
== END ==
LOC: M LABDRAW1 15:44
PROVIDERS: ATTEND Family Medicine
DX: E11.65 Type 2 diabetes mellitus with hyperglycemia (principal)

== ENCOUNTER → 2016-10-12 | Outpatient (CLI) | payer MEDICAID ==
[~2016-10-12] MED LIST changes: +GASTROGRAFIN SOLUTION 30ML (Q9963) As Ordered ONE; +ISOVUE-370 76% 100ML VIAL (Q9967) As Ordered ONE
--- NOTE | 2016-10-12 15:54 | REP ---
CT of the pelvis with IV and oral contrast: There are no comparisons. The prostate is symmetrically enlarged and effaces the bladder base. There is contrast in the dependent portion of the bladder obscuring visualization. No gross evidence of bladder wall mass or polyp is identified, however the bladder is partially collapsed and not optimal for CT evaluation. There is a fat-containing left inguinal hernia. The pelvic bowel loops are unremarkable. There is no adenopathy or ascites. The wall of the rectosigmoid colon is asymmetrically thickened on the right. This is nonspecific and could merely represent peristalsis or fecal residue, however neoplasm cannot be entirely discounted. The visualized lumbar vertebra are unremarkable. The sacrum, iliac wings and right and left hips are unremarkable. Impression: Fat containing inguinal hernia. Bladder is incompletely distended and suboptimal for evaluation by CT there is no adenopathy or ascites. Asymmetrical wall thickening of the rectosigmoid colon, nonspecific. Sign taking Signed by Gabriele Diaz MD 10/12/2016 03:45 P
== END ==
LOC: M RAD 12:59
DX: R30.0 Dysuria (principal); K40.90 Unilateral inguinal hernia, without obstruction or gangrene, not specified as recurrent; N32.89 Other specified disorders of bladder

== ENCOUNTER → 2016-10-17 | Outpatient (REF) | payer OTHER ==
[~2016-10-17] MED LIST changes: -GASTROGRAFIN SOLUTION 30ML (Q9963) As Ordered ONE; -ISOVUE-370 76% 100ML VIAL (Q9967) As Ordered ONE
[2016-10-17 18:21] LABS: BACTERIA, URINE MOD AMOUNT; HYALINE CAST, URINE NONE SEEN /lpf (0-1); MICROSCOPIC EXAM PERFORMED; SQUAMOUS EPITHELIAL CELL URINE SMALL AMOUNT /hpf (SMALL AMT)
== END ==
LOC: M SFHCPLAZ 14:05
PROVIDERS: ATTEND Family Medicine
DX: R31.29 Other microscopic hematuria (principal); R30.0 Dysuria

== ENCOUNTER → 2016-11-10 | Outpatient (CLI) | payer OTHER ==
[~2016-11-10] MED LIST changes: +ATOR1TAB19 PO; +BUPIVACAINE HCL 0.25% 30 ML VIAL As Ordered ONE; +CIPR500T89 PO; +ISOVUE-M 300 61% 15ML VIAL (Q9967) As Ordered ONE; +LIDOCAINE 1% SDV INJ 30 ML VIAL As Ordered ONE; +MELO15TA4 PO; +METF1000 PO; +TRIAMCINOLONE ACETONIDE SUSP 40 MG/ML VIAL (J3301) As Ordered ONE; +diazePAM 5 MG TAB As Ordered ONE; +oxyCODONE 5MG TAB As Ordered ONE
--- NOTE | 2016-11-10 15:01 | REP ---
Partial right pelvis series: Seven views. 10 seconds of fluoroscopy time is reported. Findings: A sequence of seven fluoroscopically obtained last image hold procedural spot radiographs of the right hip region document needle position and contrast injection associated with injection procedure. Signed by Wang Laureano MD 11/10/2016 04:02 P
--- NOTE | 2016-11-21 23:57 | ECWPNPC ---
PATIENT NAME: ALLYN PERERA : 1960 GENDER: MALE VISIT DATE: 11/10/2016 DISCHARGE DATE: 11/10/16 1526 VISIT LOCKED DATE TIME: PHYSICIAN: KIARA MAYER RESOURCE: KIARA MAYER REASON FOR APPOINTMENT 1. PIRFORMIS INJ HISTORY OF PRESENT ILLNESS HISTORY OF PRESENT ILLNESS: PAIN THE PATIENT DESCRIBES THE PAIN... FALL RISK SCREENING: SCREENING :NO FALLS IN THE PAST YEAR CURRENT MEDICATIONS TAKING VALACYCLOVIR HCL 1 GM TABLET 1 TABLET ORALLY EVERY 24 HRS, NOTES: 10-26-162099 TAKING METFORMIN HCL 1000 MG TABLET 1 TABLET WITH MEALS ORALLY TWICE A DAY, NOTES: 11-09-16 0900 TAKING AMLODIPINE BESYLATE 10 MG TABLET 1 TABLET ORALLY ONCE A DAY, NOTES: 11-10-16 0900 TAKING BUPROPION HCL ER (SR) 150 MG TABLET EXTENDED RELEASE 12 HOUR 1 TABLET ORALLY TWICE A DAY, NOTES: 11-09-16 0900 TAKING ZYRTEC ALLERGY 10 MG TABLET 1 TABLET ORALLY ONCE A DAY NEEDED, NOTES: 11-08-16 0900 TAKING METOPROLOL TARTRATE 50 MG TABLET 1 TABLET ORALLY TWICE A DAY, NOTES: 11-10-16 09 TAKING LISINOPRIL 10 MG TABLET 1 TABLET ORALLY ONCE A DAY, NOTES: 11-09-16 1300 TAKING TIZANIDINE HCL 4 MG TABLET 1 TABLET NEEDED ORALLY NEEDED FOR SPASMS AND PAIN BEFORE BEDTIME MAY REPEAT IN 4 HRS MDD2, NOTES: 11-09-16 2100 TAKING GABAPENTIN 600 MG TABLET 1 ORALLY THREE TIMES A DAY, NOTES: 11-09-16 1300 TAKING ATORVASTATIN CALCIUM 80 MG TABLET 1 TABLET ORALLY ONCE A DAY, NOTES: 11-09-16 1400 TAKING BLOOD GLUCOSE TEST STRIP - STRIP 1 STRIP IN VITRO DX:E11.65 TWICE DAILY TAKING BLOOD GLUCOSE METER - KIT 1 METER DX:E11.65 TWICE DAILY TAKING BD LANCET ULTRAFINE 33G - MISCELLANEOUS 1 LANCET INTRADERMALLY TWICE DAILY DX:E11.65 TAKING ALCOHOL PREP PAD 70 % PAD 1 TOPICALLY TWICE DAILY DX:E11.65 TAKING MELOXICAM 15 MG TABLET 1 TABLET ORALLY TAKE DAILY FOR 5 DAYS, OFF FOR 2, NOTES: 11-08-16 1400 TAKING INVOKANA 100 MG TABLET 1 TABLET BEFORE FIRST MEAL ORALLY ONCE A DAY, NOTES: 11-08-16 0900 NOT-TAKING KETOCONAZOLE 2 % CREAM 1 APPLICATION TO AFFECTED AREA EXTERNALLY TO PENIS TWICE A DAY MEDICATION LIST REVIEWED AND RECONCILED WITH THE PATIENT PAST MEDICAL HISTORY HTN SHORT'S PALSY JOINT PAIN UNSPECIFIED ESSENTIAL HYPERTENSION PAIN IN JOINT, SHOULDER REGION NONALLOPATHIC LESION OF THORACIC REGION, NOT ELSEWHERE CLASSIFIED NONDEPENDENT TOBACCO USE DISORDER SMOKING MIGRAINE WITHOUT AURA, WITH INTRACTABLE MIGRAINE, SO STATED, WITHOUT MENTION OF STATUS MIGRAINOSUS TRANSAMINITIS HYPERGLYCEMIA ALLERGY ALLERGIC CONJUNCTIVITIS HYPERLIPIDEMIA ESSENTIAL HYPERTENSION ASCVD10 (2016)- 11.5% DIEBETIC TYPE 2 ALLERGIES ASPIR-81: VOMITING: ALLERGY SURGICAL HISTORY RIGHT EPIDIDYMAL CYST REMOVAL 07/08/[address] ROBIN 08/2016 REVIEW OF SYSTEMS CONSTITUTIONAL: ANY CHANGE IN YOUR MEDICAL CONDITION? NO . CHILLS NO . FEVER NO . INFECTION: DO YOU HAVE NEW INFECTIONS? NO . DO YOU HAVE HISTORY OF MRSA? NO . MUSCULOSKELETAL: ANY NEW PATTERNS OF PAIN OR NUMBNESS? NO . GASTROENTEROLOGY: ANY NEW CHANGE IN BOWEL CONTROL? NO . GENITOURINARY: ANY NEW CHANGE IN BLADDER CONTROL? NO . IS THERE A CHANCE YOU COULD BE ? NO . HEMATOLOGY/LYMPH: DO YOU TAKE ANY BLOOD THINNERS? (FOR EXAMPLE- COUMADIN, PLAVIX, AGGRENOX, PLATEL, PRADAXA, OR XARELTO) NO . WHEN WAS YOUR LAST DOSE? DATE: TIME: . NEUROLOGY: HAVE YOU FALLEN IN THE PAST 6 MONTHS? NO . ANY NEW EXTREMITY NUMBNESS OR WEAKNESS? NO . CARDIOLOGY: DO YOU HAVE A PACEMAKER OR DEFIBRILLATOR? NO . RESPIRATORY: HAVE YOU BEEN SICK IN THE PAST WEEK? NO . FEVER NO . FLU LIKE SYMPTOMS? NO . COUGH NO . INTEGUMENTARY: DO YOU HAVE ANY RASHES OR OPEN SORES? NO . ALLERGIC/IMMUNO: ARE YOU ALLERGIC TO SHELLFISH OR IV DYE? NO . ANY NEW ALLERGIES? NO . PSYCHIATRIC: DO YOU HAVE THOUGHTS OF HURTING YOURSELF OR SOMEONE ELSE? NO . ARE YOU ABUSED, NEGLECTED, OR IN AN UNSAFE ENVIRONMENT? NO . ENDOCRINOLOGY: ARE YOU DIABETIC? NO . OTHER: DO YOU NEED ANY PRESCRIPTIONS? YES GABEPENTIN . IF YES, PLEASE LIST: ____ . ANY NEW PROBLEMS WITH YOUR MEDICATIONS? NO . WHEN DID YOU LAST EAT? ____LAST NIGHT . WHEN DID YOU LAST DRINK? ____LAST NIGHT . WHAT DID YOU LAST DRINK? ____WATER . NAME OF PERSON DRIVING YOU HOME? ____LORI KIRBY . DO YOU HAVE ANY OTHER QUESTIONS OR CONCERNS NO . REVIEWED BY: PROVIDER: . VITAL SIGNS WT 186.2 LBS, HT 66 IN, BMI 30.05 INDEX, BP 133/83 MM HG, HR 64 /MIN, RR 18 /MIN, TEMP 97.1 F, OXYGEN SAT % 95%, SAFE IN ENV? (Y/N) YES, NA INITIALS SC 12:03, REVIEWED BY: KG. ASSESSMENTS MYALGIA - M79.1 (PRIMARY) TREATMENT MYALGIA NOTES: PREOPERATIVE DIAGNOSIS: RIGHT PIRIFORMIS SYNDROME. MYALGIAPOSTOPERATIVE DIAGNOSIS: RIGHT PIRIFORMIS SYNDROME. MYALGIAPROCEDURE: RIGHT PIRIFORMIS MUSCLE BLOCK UNDER FLUOROSCOPIC GUIDANCE.ANESTHESIA: LOCAL.SURGEON: KIARA QUEZADA M.D.PREOPERATIVE NOTE: THE PATIENT HAS HISTORY OFCHRONIC LOW BACK PAIN. I EVALUATED THE PATIENT AND REVIEWED THE CHART. WE BOTH AGREED ON PERFORMING A RIGHT PIRIFORMIS MUSCLE BLOCK UNDER FLUOROSCOPIC GUIDANCE. I WENT THROUGH THE RISKS, ALTERNATIVES AND BENEFITS ASSOCIATED WITH THIS PROCEDURE AND THE PATIENTEXPRESSED THAT SHE WOULD LIKE TO PROCEED. THE PATIENT DENIES UNEXPLAINABLE WEIGHT LOSS, FEVER, CHILLS, OR CHANGES IN URINARY OR BOWEL CONTROL.PROCEDURE NOTE: AFTER CONSENT WAS TAKEN, THE PATIENT WAS BROUGHT TO THE PROCEDURE ROOM AND THE PATIENT WAS PLACED IN THE PRONE POSITION. THE LUMBOSACRAL AREA WAS CLEANED WITH CHLORAPREP SOLUTION AND DRAPED ASEPTICALLY. THE PROCEDURE WAS DONE UNDER STERILE CONDITIONS. LATERALLITY WAS CHECK WITH THE PATIENT AND THE STAFF AT THE TIME OF TIME OUT. UNDER FLUOROSCOPIC GUIDANCE, THE TARGET POINT WAS SELECTED AT THE MIDDLE AREA BETWEEN THE RIGHT GREATER TROCHANTER OF THE FEMUR AND THE BORDER OF THE SACRUM. LIDOCAINE WAS USED TO NUMB THE SKIN AND THE SUBCUTANEOUS TISSUE BELOW IT. A SPINAL NEEDLE 22 GAUGE, WAS ADVANCED UNDER FLUOROSCOPIC GUIDANCE TO THE SUBSTANCE OF THE LEFT PIRIFORMIS MUSCLE. WHEN APPROPRIATE POSITION OF THE NEEDLE WAS ACHIEVED, ISOVUE-M DYE 30%, 0.25 ML, WAS INJECTED SHOWING ADEQUATE SPREAD OF THE DYE. THEN A SOLUTION OF 30 ML OF BUPIVACAINE, 0.25%, AND KENALOG 40 MG WAS INJECTED. THERE WAS NO EVIDENCE OF BLOOD, PARESTHESIAS OR CEREBROSPINAL FLUID. THE PATIENT WAS SENT TO THE RECOVERY ROOM WHERE SHE WAS MOVING HER EXTREMITIES AND DOING WELL. THERE WERE NO COMPLICATIONS DURING THE PROCEDURE. FLUOROSCOPY TIME WAS 10 SECONDS.POSTOPERATIVE NOTE: I DISCUSSED ALTERNATIVES WITH THE PATIENT. I AM LOOKING FOR LONG-LASTING PAIN RELIEF WITH THIS INTERVENTION. THERE WERE NO COMPLICATIONS. FURTHER RECOMMENDATIONS DEPEND ON HOW THE PATIENT DOES. INSTRUCTIONS WERE GIVEN QUESTIONS WERE ANSWERED PATIENT REPORTS UNDERSTANDING AND AGREES WITH THE PLAN.I, MOISÉS PATE, DOCUMENTED THE ABOVE INFORMATION ACTING A SCRIBE FOR DR. MAYER. I HAVE REVIEWED THE ABOVE DOCUMENT, WRITTEN BY MOISÉS FITZPATRICKIBAilyn AND I VERIFY THAT IT IS ACCURATE. DIAGNOSTIC IMAGING [facility] FLUORO GUIDANCE (PAIN)[id number] PROCEDURE CODES 42941 INJ TRIGGER POINT 1/2 MUSCL 6045F RADXPS IN END [id number] PXD 60433 NEEDLE LOCALIZATION BY XRAY DISPOSITION & COMMUNICATION FOLLOW UP 3 WEEKS ELECTRONICALLY SIGNED BY KIARA MAYER MD ON 11/21/2016 AT 09:36 PM EDT DISCLAIMER : THIS IS A VISIT SUMMARY EXTRACTED FROM THE [employer] CHART. IT IS NOT A COPY OF THE [employer] PROGRESS NOTE. MTDD
== END ==
LOC: M PAIN 11:40
PROVIDERS: ATTEND Anesthesiology
DX: G89.29 Other chronic pain (principal); M79.1 Myalgia; M54.5 Low back pain; Z79.84 Long term (current) use of oral hypoglycemic drugs; Z79.899 Other long term (current) drug therapy; Z88.6 Allergy status to analgesic agent; E78.5 Hyperlipidemia, unspecified; I10 Essential (primary) hypertension; F43.21 Adjustment disorder with depressed mood; E11.65 Type 2 diabetes mellitus with hyperglycemia

== ENCOUNTER 2016-11-19 10:01 | Emergency (ER) | payer OTHER ==
[~2016-11-19] VITALS: Ht 170.2 cm; Wt 83.9 kg
[~2016-11-19 10:01] MED LIST changes: -ATOR1TAB19 PO; -BUPIVACAINE HCL 0.25% 30 ML VIAL As Ordered ONE; -CIPR500T89 PO; -ISOVUE-M 300 61% 15ML VIAL (Q9967) As Ordered ONE; -LIDOCAINE 1% SDV INJ 30 ML VIAL As Ordered ONE; -MELO15TA4 PO; -METF1000 PO; -TRIAMCINOLONE ACETONIDE SUSP 40 MG/ML VIAL (J3301) As Ordered ONE; -diazePAM 5 MG TAB As Ordered ONE; -oxyCODONE 5MG TAB As Ordered ONE
[2016-11-19] MEDS ORDERED: MELO15TA4 PO (10:20)
[2016-11-19] MEDS ORDERED: METF1000 PO (10:20)
[2016-11-19] MEDS ORDERED: ATOR1TAB19 PO (10:24)
[2016-11-19] MEDS ORDERED: CIPROFLOXACIN 500 MG TAB PO ONE (11:15)
[2016-11-19] MEDS ORDERED: ACETAMINOPH W/CODEINE #3 TAB UD PO ONE (11:15)
[2016-11-19 11:22] LABS: BASO % 0.4 % (0.0-1.0); EOS # 0.2 K/mm3 (0.0-0.50); EOS % 1.7 % (0.0-3.0); LARGE UNSTAINED CELL # 0.1 K/mm3 (0.0-0.4); LARGE UNSTAINED CELL % 1.3 % (0.0-4.0); LYMPH # 1.7 K/mm3 (1.5-4.5); LYMPH % 17.2 % (24.0-44.0); MEAN CORPUSCULAR HEMOGLOBIN 34.5 pg (27.0-33.0); MEAN CORPUSCULAR VOLUME 98.7 fl (80.0-96.0); MONO # 0.7 K/mm3 (0.0-0.8); MONO % 6.6 % (0.0-5.0); NEUTROPHILS # 7.2 K/mm3 (1.8-7.7); NEUTROPHILS % 72.8 % (36.0-66.0); PLATELET COUNT, AUTOMATED 140 k/mm3 (150-450); RED CELL DISTRIBUTION WIDTH 12.8 % (11.5-14.5); WHITE BLOOD COUNT 9.9 K/mm3 (4.0-10.0)
[2016-11-19] MEDS ORDERED: CIPR500T89 PO (11:23)
[2016-11-19] MEDS ORDERED: ACET30TAB PO (11:25)
[2016-11-19 11:38] VITALS: BP 169/96
--- NOTE | 2016-11-19 14:06 | REP ---
SCROTAL ULTRASOUND: HISTORY: Left testicular pain. COMPARISON: 07/29/2015 The testicles are normal in echogenicity. The right testicle measures 4.4 x 2.4 x 3.5 cm. The left testicle measures 4.2 x 2.6 x 3 cm. The right epididymis measures 11.2 mm. A complex cyst is present in the right epididymis. This measures 7.4 x 3 x 4.4 mm. The left epididymis measures 16 mm. A cluster of cysts is present in the left epididymis. The largest cyst measures 8.2 x 5.3 x 8.7 cm. Microcalcifications are present bilaterally. The tail of the left epididymis is enlarged with increased flow consistent with epididymitis. IMPRESSION: 1. There is enlargement of the tail of the left epididymis with increased flow consistent with epididymitis. 2. There are bilateral epididymal cysts. Signed by Vick Kaur MD 11/19/2016 02:07 P
== END 2016-11-19 11:39 | disposition home or self-care (01) ==
LOC: M ED 10:39
DX: N45.1 Epididymitis (principal); K40.90 Unilateral inguinal hernia, without obstruction or gangrene, not specified as recurrent; E11.9 Type 2 diabetes mellitus without complications; I10 Essential (primary) hypertension; F17.210 Nicotine dependence, cigarettes, uncomplicated; Z88.8 Allergy status to other drugs, medicaments and biological substances; Z79.899 Other long term (current) drug therapy; Z79.52 Long term (current) use of systemic steroids; Z98.890 Other specified postprocedural states

== ENCOUNTER → 2016-12-08 | Outpatient (CLI) | payer OTHER ==
[~2016-12-08] MED LIST changes: +ATOR1TAB19 PO; +CIPR500T89 PO; +MELO15TA4 PO; +METF1000 PO
--- NOTE | 2016-12-13 23:52 | ECWPNPC ---
PATIENT NAME: ALLYN PERERA : 1960 GENDER: MALE VISIT DATE: 12/08/2016 DISCHARGE DATE: 12/08/16 1515 VISIT LOCKED DATE TIME: PHYSICIAN: ALFA CARRASCO RESOURCE: ALFA CARRASCO REASON FOR APPOINTMENT 1. BACK PAIN HISTORY OF PRESENT ILLNESS HISTORY OF PRESENT ILLNESS: HERE FOR POST PROCEDURE F/U.HAD RIGHT PIRIFORMIS INJECTION ON 11-10-16.REPORTS IMPROVEMENT FOR >2WEEKS.TODAY STATES RIGHT LOW BACK PAIN BEGAN VERY INTENSE YESTERDAY.DENIES PRECIPITATING EVENT.DISCUSSED TREATMENT OPTIONS.CURRENTLY USING GABAPENTIN 600MG TID ,MELOXICAM 15MG PRN AND TIZANIDINE 4MG AT HS.RATING PAIN VAS 8/10. PAIN THE PATIENT DESCRIBES THE PAIN... FALL RISK SCREENING: SCREENING :NO FALLS IN THE PAST YEAR CURRENT MEDICATIONS TAKING VALACYCLOVIR HCL 1 GM TABLET 1 TABLET ORALLY EVERY 24 HRS TAKING METFORMIN HCL 1000 MG TABLET 1 TABLET WITH MEALS ORALLY TWICE A DAY TAKING AMLODIPINE BESYLATE 10 MG TABLET 1 TABLET ORALLY ONCE A DAY TAKING BUPROPION HCL ER (SR) 150 MG TABLET EXTENDED RELEASE 12 HOUR 1 TABLET ORALLY TWICE A DAY TAKING ZYRTEC ALLERGY 10 MG TABLET 1 TABLET ORALLY ONCE A DAY NEEDED TAKING METOPROLOL TARTRATE 50 MG TABLET 1 TABLET ORALLY TWICE A DAY TAKING LISINOPRIL 10 MG TABLET 1 TABLET ORALLY ONCE A DAY TAKING TIZANIDINE HCL 4 MG TABLET 1 TABLET NEEDED ORALLY NEEDED FOR SPASMS AND PAIN BEFORE BEDTIME MAY REPEAT IN 4 HRS MDD2 TAKING ATORVASTATIN CALCIUM 80 MG TABLET 1 TABLET ORALLY ONCE A DAY TAKING BLOOD GLUCOSE TEST STRIP - STRIP 1 STRIP IN VITRO DX:E11.65 TWICE DAILY TAKING BLOOD GLUCOSE METER - KIT 1 METER DX:E11.65 TWICE DAILY TAKING BD LANCET ULTRAFINE 33G - MISCELLANEOUS 1 LANCET INTRADERMALLY TWICE DAILY DX:E11.65 TAKING ALCOHOL PREP PAD 70 % PAD 1 TOPICALLY TWICE DAILY DX:E11.65 TAKING MELOXICAM 15 MG TABLET 1 TABLET ORALLY TAKE DAILY FOR 5 DAYS, OFF FOR 2 TAKING INVOKANA 100 MG TABLET 1 TABLET BEFORE FIRST MEAL ORALLY ONCE A DAY TAKING GABAPENTIN 600 MG TABLET 1 ORALLY THREE TIMES A DAY TAKING KETOROLAC TROMETHAMINE 10 MG TABLET 1 TABLET WITH FOOD OR MILK NEEDED ORALLY EVERY 6 HRS NOT-TAKING KETOCONAZOLE 2 % CREAM 1 APPLICATION TO AFFECTED AREA EXTERNALLY TO PENIS TWICE A DAY MEDICATION LIST REVIEWED AND RECONCILED WITH THE PATIENT PAST MEDICAL HISTORY HTN SHORT'S PALSY JOINT PAIN UNSPECIFIED ESSENTIAL HYPERTENSION PAIN IN JOINT, SHOULDER REGION NONALLOPATHIC LESION OF THORACIC REGION, NOT ELSEWHERE CLASSIFIED NONDEPENDENT TOBACCO USE DISORDER SMOKING MIGRAINE WITHOUT AURA, WITH INTRACTABLE MIGRAINE, SO STATED, WITHOUT MENTION OF STATUS MIGRAINOSUS TRANSAMINITIS HYPERGLYCEMIA ALLERGY ALLERGIC CONJUNCTIVITIS HYPERLIPIDEMIA ESSENTIAL HYPERTENSION ASCVD10 (2016)- 11.5% DIEBETIC TYPE 2 EPIDIDYMITIS ALLERGIES ASPIR-81: VOMITING: ALLERGY SURGICAL HISTORY RIGHT EPIDIDYMAL CYST REMOVAL 07/08/[address] ROBIN 08/2016 REVIEW OF SYSTEMS REVIEWED BY: PROVIDER: ALFA JIMENEZ . CONSTITUTIONAL: ANY CHANGE IN YOUR MEDICAL CONDITION? NO . CHILLS NO . FEVER NO . INFECTION: DO YOU HAVE NEW INFECTIONS? NO . DO YOU HAVE HISTORY OF MRSA? NO . MUSCULOSKELETAL: ANY NEW PATTERNS OF PAIN OR NUMBNESS? YES. PT STATES HE HAD A RIGHT PIRIFORMIS MUSCLE BLOCK DONE 11/10/16. PT STATES PRE PROCEDURE PAIN WAS 3-10/10. POST PROCEDURE PAIN WAS 0/10, THEN STARTED CREEPING TO 7/10. PT STATES HE SOUGHT MEDICAL TX AND WAS PLACED ON KETOROLAC, WHICH REALLY HELPED TO BRING PAIN DOWN. THEN SUDDENLY YESTERDAY PT STATES HE WAS WALKING AND PAIN CAME RIGHT BACK TO BASELINE PRE-PROCEDURE. . GASTROENTEROLOGY: ANY NEW CHANGE IN BOWEL CONTROL? NO . GENITOURINARY: ANY NEW CHANGE IN BLADDER CONTROL? NO . IS THERE A CHANCE YOU COULD BE ? NO . HEMATOLOGY/LYMPH: DO YOU TAKE ANY BLOOD THINNERS? (FOR EXAMPLE- COUMADIN, PLAVIX, AGGRENOX, PLATEL, PRADAXA, OR XARELTO) NO . WHEN WAS YOUR LAST DOSE? DATE: TIME: . NEUROLOGY: HAVE YOU FALLEN IN THE PAST 6 MONTHS? NO . ANY NEW EXTREMITY NUMBNESS OR WEAKNESS? NO . CARDIOLOGY: DO YOU HAVE A PACEMAKER OR DEFIBRILLATOR? NO . RESPIRATORY: HAVE YOU BEEN SICK IN THE PAST WEEK? NO . FEVER NO . FLU LIKE SYMPTOMS? NO . COUGH NO . INTEGUMENTARY: DO YOU HAVE ANY RASHES OR OPEN SORES? NO . ALLERGIC/IMMUNO: ARE YOU ALLERGIC TO SHELLFISH OR IV DYE? NO . ANY NEW ALLERGIES? NO . PSYCHIATRIC: DO YOU HAVE THOUGHTS OF HURTING YOURSELF OR SOMEONE ELSE? NO . ARE YOU ABUSED, NEGLECTED, OR IN AN UNSAFE ENVIRONMENT? NO . ENDOCRINOLOGY: ARE YOU DIABETIC? YES . OTHER: DO YOU NEED ANY PRESCRIPTIONS? NO . IF YES, PLEASE LIST: ____ . ANY NEW PROBLEMS WITH YOUR MEDICATIONS? NO . WHEN DID YOU LAST EAT? ____ . WHEN DID YOU LAST DRINK? ____ . WHAT DID YOU LAST DRINK? ____ . NAME OF PERSON DRIVING YOU HOME? ____ . DO YOU HAVE ANY OTHER QUESTIONS OR CONCERNS NO . VITAL SIGNS WT 185.4 LBS, HT 66 IN, BMI 29.92 INDEX, BP 160/88 MANUAL, REPEAT BP 165/108 MACHINE, HR 69 /MIN, RR 16 /MIN, TEMP 97.8 F, OXYGEN SAT % 96%, SAFE IN ENV? (Y/N) Y, NA INITIALS TL 1422, REVIEWED BY: ERIK. EXAMINATION GENERAL EXAMINATION: LUNGS:LUNG SOUNDS ARE CLEAR. HEART:HEART RATE REGULAR. MUSCULOSKELETAL:*, MUSCLE STRENGTH TESTING 5/5 BILATERAL LOWER EXTREMITIES.SPECIFIC POINT TENDERNESS OVER RIGHT PIRIFORMIS.. DIAGNOSTIC:MRI L/S SPINE 07-06-16-REVIEWED.. ASSESSMENTS PIRIFORMIS MUSCLE PAIN - M79.1 (PRIMARY) LUMBAR SPONDYLOSIS - M47.816 TREATMENT PIRIFORMIS MUSCLE PAIN CONTINUE TIZANIDINE HCL TABLET, 4 MG, 1 TABLET NEEDED, ORALLY NEEDED FOR SPASMS AND PAIN, BEFORE BEDTIME MAY REPEAT IN 4 HRS MDD2 CONTINUE GABAPENTIN TABLET, 600 MG, 1, ORALLY, THREE TIMES A DAY CONTINUE MELOXICAM TABLET, 15 MG, 1 TABLET, ORALLY, TAKE DAILY FOR 5 DAYS, OFF FOR 2 NOTES: PRIFORMIS MUSCLE INJECTION-RIGHT. PROCEDURE CODES FA211 ESTABILISHED PATIENT [facility] CHARGE DISPOSITION & COMMUNICATION FOLLOW UP 2WK POST (REASON: PRIFORMIS MUSCLE INJECTION-RIGHT) ELECTRONICALLY SIGNED BY BARBARA HUFF ON 12/13/2016 AT 12:25 PM EDT DISCLAIMER : THIS IS A VISIT SUMMARY EXTRACTED FROM THE [employer] CHART. IT IS NOT A COPY OF THE [employer] PROGRESS NOTE. MTDD
== END ==
LOC: M PAIN 14:00
PROVIDERS: ATTEND Nurse Practitioner Family
DX: G89.29 Other chronic pain (principal); M79.1 Myalgia; M47.816 Spondylosis without myelopathy or radiculopathy, lumbar region; I10 Essential (primary) hypertension; G43.909 Migraine, unspecified, not intractable, without status migrainosus; E11.65 Type 2 diabetes mellitus with hyperglycemia; E78.5 Hyperlipidemia, unspecified; F17.210 Nicotine dependence, cigarettes, uncomplicated; F43.21 Adjustment disorder with depressed mood; Z88.6 Allergy status to analgesic agent; Z79.84 Long term (current) use of oral hypoglycemic drugs; Z79.899 Other long term (current) drug therapy

== ENCOUNTER → 2016-12-28 | Outpatient (CLI) | payer OTHER ==
[~2016-12-28] MED LIST changes: +ATOR80TA59 PO; +BUPIVACAINE HCL 0.25% 30 ML VIAL As Ordered ONE; +BUPR150T5 PO; +CIPR-249 PO; -CIPR500T89 PO; +CYCL10TA PO; +GABA-283 PO; +ISOVUE-M 300 61% 15ML VIAL (Q9967) As Ordered ONE; +LIDOCAINE 1% SDV INJ 30 ML VIAL As Ordered ONE; -METF1000 PO; +METF10004 PO; +METO37.5 PO; -METO50TA2 PO; +METO50TA7 PO; +MOBI4TAB PO; -MOBI7.5T10 PO; +TIZA4CAP3 PO; +TRIAMCINOLONE ACETONIDE SUSP 40 MG/ML VIAL (J3301) As Ordered ONE; +ZYRT10CA PO; +diazePAM 5 MG TAB As Ordered ONE; +oxyCODONE 5MG TAB As Ordered ONE
--- NOTE | 2016-12-28 12:11 | REP ---
PARTIAL SERIES: Five views. HISTORY: Right piriformis muscle block for pain. 6 seconds of fluoroscopy time is reported. FINDINGS: A sequence of five fluoroscopically obtained last image hold spot radiographs of the right hip document needle position and contrast injection associated with injection procedure. Signed by Wang Laureano MD 12/28/2016 02:02 P
--- NOTE | 2017-01-11 00:32 | ECWPNPC ---
PATIENT NAME: ALLYN PERERA : 1960 GENDER: MALE VISIT DATE: 12/28/2016 DISCHARGE DATE: 12/28/16 1048 VISIT LOCKED DATE TIME: PHYSICIAN: KIARA MAYER RESOURCE: KIARA MAYER REASON FOR APPOINTMENT 1. PRIFORMIS MUSCLE INJECTION-RIGHT HISTORY OF PRESENT ILLNESS HISTORY OF PRESENT ILLNESS: PAIN THE PATIENT DESCRIBES THE PAIN... FALL RISK SCREENING: SCREENING :NO FALLS IN THE PAST YEAR CURRENT MEDICATIONS TAKING VALACYCLOVIR HCL 1 GM TABLET 1 TABLET ORALLY EVERY 24 HRS, NOTES: BEEN A WHILE TAKING METFORMIN HCL 1000 MG TABLET 1 TABLET WITH MEALS ORALLY TWICE A DAY, NOTES: 12-27-162099 TAKING AMLODIPINE BESYLATE 10 MG TABLET 1 TABLET ORALLY ONCE A DAY, NOTES: 12-28-16699 TAKING BUPROPION HCL ER (SR) 150 MG TABLET EXTENDED RELEASE 12 HOUR 1 TABLET ORALLY TWICE A DAY, NOTES: 12-27-161299 TAKING ZYRTEC ALLERGY 10 MG TABLET 1 TABLET ORALLY ONCE A DAY NEEDED, NOTES: 12-27-162099 TAKING METOPROLOL TARTRATE 50 MG TABLET 1 TABLET ORALLY TWICE A DAY, NOTES: 12-28-16699 TAKING LISINOPRIL 10 MG TABLET 1 TABLET ORALLY ONCE A DAY, NOTES: 12-27-161299 TAKING ATORVASTATIN CALCIUM 80 MG TABLET 1 TABLET ORALLY ONCE A DAY, NOTES: 12-27-162099 TAKING BLOOD GLUCOSE TEST STRIP - STRIP 1 STRIP IN VITRO DX:E11.65 TWICE DAILY TAKING BLOOD GLUCOSE METER - KIT 1 METER DX:E11.65 TWICE DAILY TAKING BD LANCET ULTRAFINE 33G - MISCELLANEOUS 1 LANCET INTRADERMALLY TWICE DAILY DX:E11.65 TAKING ALCOHOL PREP PAD 70 % PAD 1 TOPICALLY TWICE DAILY DX:E11.65 TAKING INVOKANA 100 MG TABLET 1 TABLET BEFORE FIRST MEAL ORALLY ONCE A DAY, NOTES: 12-27-161199 TAKING TIZANIDINE HCL 4 MG TABLET 1 TABLET NEEDED ORALLY NEEDED FOR SPASMS AND PAIN BEFORE BEDTIME MAY REPEAT IN 4 HRS MDD2, NOTES: TAKING GABAPENTIN 600 MG TABLET 1 ORALLY THREE TIMES A DAY, NOTES: 12-27-162099 TAKING MELOXICAM 15 MG TABLET 1 TABLET ORALLY TAKE DAILY FOR 5 DAYS, OFF FOR 2, NOTES: 12-27-162099 NOT-TAKING KETOROLAC TROMETHAMINE 10 MG TABLET 1 TABLET WITH FOOD OR MILK NEEDED ORALLY EVERY 6 HRS NOT-TAKING KETOCONAZOLE 2 % CREAM 1 APPLICATION TO AFFECTED AREA EXTERNALLY TO PENIS TWICE A DAY MEDICATION LIST REVIEWED AND RECONCILED WITH THE PATIENT PAST MEDICAL HISTORY HTN SHORT'S PALSY JOINT PAIN UNSPECIFIED ESSENTIAL HYPERTENSION PAIN IN JOINT, SHOULDER REGION NONALLOPATHIC LESION OF THORACIC REGION, NOT ELSEWHERE CLASSIFIED NONDEPENDENT TOBACCO USE DISORDER SMOKING MIGRAINE WITHOUT AURA, WITH INTRACTABLE MIGRAINE, SO STATED, WITHOUT MENTION OF STATUS MIGRAINOSUS TRANSAMINITIS HYPERGLYCEMIA ALLERGY ALLERGIC CONJUNCTIVITIS HYPERLIPIDEMIA ESSENTIAL HYPERTENSION ASCVD10 (2016)- 11.5% DIEBETIC TYPE 2 EPIDIDYMITIS ALLERGIES ASPIR-81: VOMITING: ALLERGY SOCIAL HISTORY GENERAL: TOBACCO USE ARE YOU A:CURRENT SMOKER HOW MANY CIGARETTES A DAY DO YOU SMOKE?6-10 HOW SOON AFTER YOU WAKE UP DO YOU SMOKE YOUR FIRST CIGARETTE?AFTER 60 MIN HOW OFTEN DO YOU SMOKE CIGARETTES?EVERY DAY PATIENT COUNSELED ON THE DANGERS OF TOBACCO USE AND URGED TO QUIT:12/02/2016 ARE YOU INTERESTED IN QUITTING?THINKING ABOUT QUITTING PREVIOUS QUIT ATTEMPTS?NO. COUNSELED THE PATIENT ON SMOKING CESSATION, EDUCATION HSOLLLWG56/16/2017 SMOKING CESSATION INFORMATION GIVEN12/28/2016 BMI CARE GOAL FOLLOW-UP ABOVE NORMAL BMI FOLLOW-UPLIFESTYLE EDUCATION REGARDING DIET ALCOHOL SCREENING DID YOU HAVE A DRINK CONTAINING ALCOHOL IN THE PAST YEAR?NO POINTS0 INTERPRETATIONNEGATIVE RECREATIONAL DRUG USE DRUG USE?NO CAFFEINE CAFFEINE USE?YES SEXUAL HX HAD SEX IN THE LAST 12 MONTHS (VAGINAL, ORAL, OR ANAL)?YES WITHWOMEN ONLY USE PROTECTION?NO HAVE YOU EVER HAD AN STD?NO PREVENTION STRATEGIES DISCUSSED:CONDOMS HIV / HEP-C SCREENING HIV TEST OFFERED TO PATIENT:YES DATE OFFERED:10/06/2016 TEST ACCEPTED:NO REASON:PATIENT DECLINED HEP-C TEST OFFERED TO PATIENT:YES DATE OFFERED:10/06/2016 TEST ACCEPTED:NO REASON:PATIENT DECLINED OCCUPATION: UNEMPLOYED. DIET: REGULAR. EXERCISE: NO REGULAR EXERCISE. MARITAL STATUS: SINGLE. OTHERS AT HOME: GIRLFRIEND. PETS: CAT & DOG. RELIGIOUS NO UATSDIN BELIEFS THAT WOULD IMPACT HEALTH CARE. LANGUAGE [place]. EDUCATION LEVEL OF EDUCATION:NOT FINISHED COLLEGE LEARNING BARRIERS / SPECIAL NEEDS CHANGE FROM LAST VISIT?YES BARRIERS TO LEARNING?NO HEARING IMPAIRED?NO VISION IMPAIRED?YES :CORRECTIVE LENSES COGNITIVELY IMPAIRED?NO READINESS TO LEARN?YES LEARNING PREFERENCES?NO LEARNING CAPABILITIES PRESENT?YES EMOTIONAL BARRIERS?NO SPECIAL DEVICES?NO MACHINE WHITENER NEEDED?NO NEW PATIENT PAIN DIARY TODAY'S VISIT NOTES, FROM 0-10, WHAT LEVEL IS YOUR PAIN TODAY? 0. PAIN CLINIC PFS, CLERGY, PUBLIC HEALTH REFERRALS PFS REFERRAL NEEDED? NO, CLERGY REFERRAL NEEDED? NO, PUBLIC HEALTH REFERRAL NEEDED? NO, WAS THE PROVIDER NOTIFIED OF ANY PERTINENT INFO? NO, PFS REFERRAL NEEDED? NO, CLERGY REFERRAL NEEDED? NO, PUBLIC HEALTH REFERRAL NEEDED? NO, WAS THE PROVIDER NOTIFIED OF ANY PERTINENT INFO? NO. REVIEW OF SYSTEMS REVIEWED BY: PROVIDER: . CONSTITUTIONAL: ANY CHANGE IN YOUR MEDICAL CONDITION? NO . CHILLS NO . FEVER NO . INFECTION: DO YOU HAVE NEW INFECTIONS? NO . DO YOU HAVE HISTORY OF MRSA? NO . MUSCULOSKELETAL: ANY NEW PATTERNS OF PAIN OR NUMBNESS? NO . GASTROENTEROLOGY: ANY NEW CHANGE IN BOWEL CONTROL? NO . GENITOURINARY: ANY NEW CHANGE IN BLADDER CONTROL? NO . IS THERE A CHANCE YOU COULD BE ? NO . HEMATOLOGY/LYMPH: DO YOU TAKE ANY BLOOD THINNERS? (FOR EXAMPLE- COUMADIN, PLAVIX, AGGRENOX, PLATEL, PRADAXA, OR XARELTO) NO . WHEN WAS YOUR LAST DOSE? DATE: TIME: . NEUROLOGY: HAVE YOU FALLEN IN THE PAST 6 MONTHS? NO . ANY NEW EXTREMITY NUMBNESS OR WEAKNESS? NO . CARDIOLOGY: DO YOU HAVE A PACEMAKER OR DEFIBRILLATOR? NO . RESPIRATORY: HAVE YOU BEEN SICK IN THE PAST WEEK? NO . FEVER NO . FLU LIKE SYMPTOMS? NO . COUGH NO . INTEGUMENTARY: DO YOU HAVE ANY RASHES OR OPEN SORES? NO . ALLERGIC/IMMUNO: ARE YOU ALLERGIC TO SHELLFISH OR IV DYE? NO . ANY NEW ALLERGIES? NO . PSYCHIATRIC: DO YOU HAVE THOUGHTS OF HURTING YOURSELF OR SOMEONE ELSE? NO . ARE YOU ABUSED, NEGLECTED, OR IN AN UNSAFE ENVIRONMENT? NO . ENDOCRINOLOGY: ARE YOU DIABETIC? YES . OTHER: DO YOU NEED ANY PRESCRIPTIONS? NO . IF YES, PLEASE LIST: ____ . ANY NEW PROBLEMS WITH YOUR MEDICATIONS? NO . WHEN DID YOU LAST EAT? ____9 PM LAST NIGHT . WHEN DID YOU LAST DRINK? ____10 PM LAST NIGHT . WHAT DID YOU LAST DRINK? ____WATER . NAME OF PERSON DRIVING YOU HOME? ____DELBERT KIRBY . DO YOU HAVE ANY OTHER QUESTIONS OR CONCERNS NO . VITAL SIGNS WT 184 LBS, HT 66 IN, BMI 29.70 INDEX, BP 162/95 MM HG, HR 63 /MIN, RR 18 /MIN, TEMP 98.4 F, OXYGEN SAT % 96%, NA INITIALS 08:54. ASSESSMENTS MYALGIA - M79.1 (PRIMARY) TREATMENT MYALGIA NOTES: PREOPERATIVE DIAGNOSIS: RIGHT PIRIFORMIS SYNDROME. MYALGIAPOSTOPERATIVE DIAGNOSIS: RIGHT PIRIFORMIS SYNDROME. MYALGIAPROCEDURE: RIGHT PIRIFORMIS MUSCLE BLOCK UNDER FLUOROSCOPIC GUIDANCE.ANESTHESIA: LOCAL.SURGEON: KIARA QUEZADA M.D.PREOPERATIVE NOTE: THE PATIENT HAS HISTORY OF CHRONIC LOW BACK PAIN. I EVALUATED THE PATIENT AND REVIEWED THE CHART. WE BOTH AGREED ON PERFORMING A RIGHT PIRIFORMIS MUSCLE BLOCK UNDER FLUOROSCOPIC GUIDANCE. I WENT THROUGH THE RISKS, ALTERNATIVES AND BENEFITS ASSOCIATED WITH THIS PROCEDURE AND THE PATIENTEXPRESSED THAT SHE WOULD LIKE TO PROCEED. THE PATIENT DENIES UNEXPLAINABLE WEIGHT LOSS, FEVER, CHILLS, OR CHANGES IN URINARY OR BOWEL CONTROL.PROCEDURE NOTE: AFTER CONSENT WAS TAKEN, THE PATIENT WAS BROUGHT TO THE PROCEDURE ROOM AND THE PATIENT WAS PLACED IN THE PRONE POSITION. THE LUMBOSACRAL AREA WAS CLEANED WITH CHLORAPREP SOLUTION AND DRAPED ASEPTICALLY. THE PROCEDURE WAS DONE UNDER STERILE CONDITIONS. LATERALLITY WAS CHECK WITH THE PATIENT AND THE STAFF AT THE TIME OF TIME OUT. UNDER FLUOROSCOPIC GUIDANCE, THE TARGET POINT WAS SELECTED AT THE MIDDLE AREA BETWEEN THE [DEFAULT VALUE]GREATER TROCHANTER OF THE FEMUR AND THE BORDER OF THE SACRUM. LIDOCAINE WAS USED TO NUMB THE SKIN AND THE SUBCUTANEOUS TISSUE BELOW IT. A SPINAL NEEDLE 22 GAUGE, WAS ADVANCED UNDER FLUOROSCOPIC GUIDANCE TO THE SUBSTANCE OF THE LEFT PIRIFORMIS MUSCLE. WHEN APPROPRIATE POSITION OF THE NEEDLE WAS ACHIEVED, ISOVUE-M DYE 30%, 0.25 ML, WAS INJECTED SHOWING ADEQUATE SPREAD OF THE DYE. THEN A SOLUTION OF 30 ML OF BUPIVACAINE, 0.25%, AND KENALOG 40 MG WAS INJECTED. THERE WAS NO EVIDENCE OF BLOOD, PARESTHESIAS OR CEREBROSPINAL FLUID. THE PATIENT WAS SENT TO THE RECOVERY ROOM WHERE SHE WAS MOVING HER EXTREMITIES AND DOING WELL. THERE WERE NO COMPLICATIONS DURING THE PROCEDURE. FLUOROSCOPY TIME WAS 6 SECONDS.POSTOPERATIVE NOTE: I DISCUSSED ALTERNATIVES WITH THE PATIENT. I AM LOOKING FOR LONG-LASTING PAIN RELIEF WITH THIS INTERVENTION. THERE WERE NO COMPLICATIONS. FURTHER RECOMMENDATIONS DEPEND ON HOW THE PATIENT DOES. INSTRUCTIONS WERE GIVEN QUESTIONS WERE ANSWERED PATIENT REPORTS UNDERSTANDING AND AGREES WITH THE PLAN.I, MOISÉS PATE, DOCUMENTED THE ABOVE INFORMATION ACTING A SCRIBE FOR DR. MAYER. I HAVE REVIEWED THE ABOVE DOCUMENT, WRITTEN BY MOISÉS KATE AND I VERIFY THAT IT IS ACCURATE. OTHERS START SOMA TABLET, 350 MG, 1 TABLET NEEDED FOR SPASMS AND PAIN, ORALLY, EVERY 6 HOURS NEEDED MDD3, 4 DAYS, 12, REFILLS [address] [facility] FLUORO GUIDANCE (PAIN)[id number] PROCEDURE CODES 80413 INJ TRIGGER POINT 1/2 MUSCL 6045F RADXPS IN END [id number] PXD 04235 NEEDLE LOCALIZATION BY XRAY DISPOSITION & COMMUNICATION FOLLOW UP 3 WEEKS ELECTRONICALLY SIGNED BY KIARA MAYER MD ON 01/10/2017 AT 01:14 PM EDT DISCLAIMER : THIS IS A VISIT SUMMARY EXTRACTED FROM THE [employer] CHART. IT IS NOT A COPY OF THE [employer] PROGRESS NOTE. MTDD
--- NOTE | 2017-01-11 00:32 | ECWPNPC ---
PATIENT NAME: ALLYN PERERA : 1960 GENDER: MALE VISIT DATE: 12/28/2016 DISCHARGE DATE: 12/28/16 1048 VISIT LOCKED DATE TIME: PHYSICIAN: KIARA MAYER RESOURCE: KIARA MAYER REASON FOR APPOINTMENT 1. PRIFORMIS MUSCLE INJECTION-RIGHT HISTORY OF PRESENT ILLNESS HISTORY OF PRESENT ILLNESS: PAIN THE PATIENT DESCRIBES THE PAIN... FALL RISK SCREENING: SCREENING :NO FALLS IN THE PAST YEAR CURRENT MEDICATIONS TAKING VALACYCLOVIR HCL 1 GM TABLET 1 TABLET ORALLY EVERY 24 HRS, NOTES: BEEN A WHILE TAKING METFORMIN HCL 1000 MG TABLET 1 TABLET WITH MEALS ORALLY TWICE A DAY, NOTES: 12-27-162099 TAKING AMLODIPINE BESYLATE 10 MG TABLET 1 TABLET ORALLY ONCE A DAY, NOTES: 12-28-16699 TAKING BUPROPION HCL ER (SR) 150 MG TABLET EXTENDED RELEASE 12 HOUR 1 TABLET ORALLY TWICE A DAY, NOTES: 12-27-161299 TAKING ZYRTEC ALLERGY 10 MG TABLET 1 TABLET ORALLY ONCE A DAY NEEDED, NOTES: 12-27-162099 TAKING METOPROLOL TARTRATE 50 MG TABLET 1 TABLET ORALLY TWICE A DAY, NOTES: 12-28-16699 TAKING LISINOPRIL 10 MG TABLET 1 TABLET ORALLY ONCE A DAY, NOTES: 12-27-161299 TAKING ATORVASTATIN CALCIUM 80 MG TABLET 1 TABLET ORALLY ONCE A DAY, NOTES: 12-27-162099 TAKING BLOOD GLUCOSE TEST STRIP - STRIP 1 STRIP IN VITRO DX:E11.65 TWICE DAILY TAKING BLOOD GLUCOSE METER - KIT 1 METER DX:E11.65 TWICE DAILY TAKING BD LANCET ULTRAFINE 33G - MISCELLANEOUS 1 LANCET INTRADERMALLY TWICE DAILY DX:E11.65 TAKING ALCOHOL PREP PAD 70 % PAD 1 TOPICALLY TWICE DAILY DX:E11.65 TAKING INVOKANA 100 MG TABLET 1 TABLET BEFORE FIRST MEAL ORALLY ONCE A DAY, NOTES: 12-27-161199 TAKING TIZANIDINE HCL 4 MG TABLET 1 TABLET NEEDED ORALLY NEEDED FOR SPASMS AND PAIN BEFORE BEDTIME MAY REPEAT IN 4 HRS MDD2, NOTES: TAKING GABAPENTIN 600 MG TABLET 1 ORALLY THREE TIMES A DAY, NOTES: 12-27-162099 TAKING MELOXICAM 15 MG TABLET 1 TABLET ORALLY TAKE DAILY FOR 5 DAYS, OFF FOR 2, NOTES: 12-27-162099 NOT-TAKING KETOROLAC TROMETHAMINE 10 MG TABLET 1 TABLET WITH FOOD OR MILK NEEDED ORALLY EVERY 6 HRS NOT-TAKING KETOCONAZOLE 2 % CREAM 1 APPLICATION TO AFFECTED AREA EXTERNALLY TO PENIS TWICE A DAY MEDICATION LIST REVIEWED AND RECONCILED WITH THE PATIENT PAST MEDICAL HISTORY HTN SHORT'S PALSY JOINT PAIN UNSPECIFIED ESSENTIAL HYPERTENSION PAIN IN JOINT, SHOULDER REGION NONALLOPATHIC LESION OF THORACIC REGION, NOT ELSEWHERE CLASSIFIED NONDEPENDENT TOBACCO USE DISORDER SMOKING MIGRAINE WITHOUT AURA, WITH INTRACTABLE MIGRAINE, SO STATED, WITHOUT MENTION OF STATUS MIGRAINOSUS TRANSAMINITIS HYPERGLYCEMIA ALLERGY ALLERGIC CONJUNCTIVITIS HYPERLIPIDEMIA ESSENTIAL HYPERTENSION ASCVD10 (2016)- 11.5% DIEBETIC TYPE 2 EPIDIDYMITIS ALLERGIES ASPIR-81: VOMITING: ALLERGY SOCIAL HISTORY GENERAL: TOBACCO USE ARE YOU A:CURRENT SMOKER HOW MANY CIGARETTES A DAY DO YOU SMOKE?6-10 HOW SOON AFTER YOU WAKE UP DO YOU SMOKE YOUR FIRST CIGARETTE?AFTER 60 MIN HOW OFTEN DO YOU SMOKE CIGARETTES?EVERY DAY PATIENT COUNSELED ON THE DANGERS OF TOBACCO USE AND URGED TO QUIT:12/02/2016 ARE YOU INTERESTED IN QUITTING?THINKING ABOUT QUITTING PREVIOUS QUIT ATTEMPTS?NO. COUNSELED THE PATIENT ON SMOKING CESSATION, EDUCATION CCLPYUCA11/16/2017 SMOKING CESSATION INFORMATION GIVEN12/28/2016 BMI CARE GOAL FOLLOW-UP ABOVE NORMAL BMI FOLLOW-UPLIFESTYLE EDUCATION REGARDING DIET ALCOHOL SCREENING DID YOU HAVE A DRINK CONTAINING ALCOHOL IN THE PAST YEAR?NO POINTS0 INTERPRETATIONNEGATIVE RECREATIONAL DRUG USE DRUG USE?NO CAFFEINE CAFFEINE USE?YES SEXUAL HX HAD SEX IN THE LAST 12 MONTHS (VAGINAL, ORAL, OR ANAL)?YES WITHWOMEN ONLY USE PROTECTION?NO HAVE YOU EVER HAD AN STD?NO PREVENTION STRATEGIES DISCUSSED:CONDOMS HIV / HEP-C SCREENING HIV TEST OFFERED TO PATIENT:YES DATE OFFERED:10/06/2016 TEST ACCEPTED:NO REASON:PATIENT DECLINED HEP-C TEST OFFERED TO PATIENT:YES DATE OFFERED:10/06/2016 TEST ACCEPTED:NO REASON:PATIENT DECLINED OCCUPATION: UNEMPLOYED. DIET: REGULAR. EXERCISE: NO REGULAR EXERCISE. MARITAL STATUS: SINGLE. OTHERS AT HOME: GIRLFRIEND. PETS: CAT & DOG. HINDUISM NO TAOIST BELIEFS THAT WOULD IMPACT HEALTH CARE. LANGUAGE TONGAN. EDUCATION LEVEL OF EDUCATION:NOT FINISHED COLLEGE LEARNING BARRIERS / SPECIAL NEEDS CHANGE FROM LAST VISIT?YES BARRIERS TO LEARNING?NO HEARING IMPAIRED?NO VISION IMPAIRED?YES :CORRECTIVE LENSES COGNITIVELY IMPAIRED?NO READINESS TO LEARN?YES LEARNING PREFERENCES?NO LEARNING CAPABILITIES PRESENT?YES EMOTIONAL BARRIERS?NO SPECIAL DEVICES?NO LUBRICATOR GRANULATOR NEEDED?NO NEW PATIENT PAIN DIARY TODAY'S VISIT NOTES, FROM 0-10, WHAT LEVEL IS YOUR PAIN TODAY? 0. PAIN CLINIC PFS, CLERGY, PUBLIC HEALTH REFERRALS PFS REFERRAL NEEDED? NO, CLERGY REFERRAL NEEDED? NO, PUBLIC HEALTH REFERRAL NEEDED? NO, WAS THE PROVIDER NOTIFIED OF ANY PERTINENT INFO? NO, PFS REFERRAL NEEDED? NO, CLERGY REFERRAL NEEDED? NO, PUBLIC HEALTH REFERRAL NEEDED? NO, WAS THE PROVIDER NOTIFIED OF ANY PERTINENT INFO? NO. REVIEW OF SYSTEMS REVIEWED BY: PROVIDER: . CONSTITUTIONAL: ANY CHANGE IN YOUR MEDICAL CONDITION? NO . CHILLS NO . FEVER NO . INFECTION: DO YOU HAVE NEW INFECTIONS? NO . DO YOU HAVE HISTORY OF MRSA? NO . MUSCULOSKELETAL: ANY NEW PATTERNS OF PAIN OR NUMBNESS? NO . GASTROENTEROLOGY: ANY NEW CHANGE IN BOWEL CONTROL? NO . GENITOURINARY: ANY NEW CHANGE IN BLADDER CONTROL? NO . IS THERE A CHANCE YOU COULD BE ? NO . HEMATOLOGY/LYMPH: DO YOU TAKE ANY BLOOD THINNERS? (FOR EXAMPLE- COUMADIN, PLAVIX, AGGRENOX, PLATEL, PRADAXA, OR XARELTO) NO . WHEN WAS YOUR LAST DOSE? DATE: TIME: . NEUROLOGY: HAVE YOU FALLEN IN THE PAST 6 MONTHS? NO . ANY NEW EXTREMITY NUMBNESS OR WEAKNESS? NO . CARDIOLOGY: DO YOU HAVE A PACEMAKER OR DEFIBRILLATOR? NO . RESPIRATORY: HAVE YOU BEEN SICK IN THE PAST WEEK? NO . FEVER NO . FLU LIKE SYMPTOMS? NO . COUGH NO . INTEGUMENTARY: DO YOU HAVE ANY RASHES OR OPEN SORES? NO . ALLERGIC/IMMUNO: ARE YOU ALLERGIC TO SHELLFISH OR IV DYE? NO . ANY NEW ALLERGIES? NO . PSYCHIATRIC: DO YOU HAVE THOUGHTS OF HURTING YOURSELF OR SOMEONE ELSE? NO . ARE YOU ABUSED, NEGLECTED, OR IN AN UNSAFE ENVIRONMENT? NO . ENDOCRINOLOGY: ARE YOU DIABETIC? YES . OTHER: DO YOU NEED ANY PRESCRIPTIONS? NO . IF YES, PLEASE LIST: ____ . ANY NEW PROBLEMS WITH YOUR MEDICATIONS? NO . WHEN DID YOU LAST EAT? ____9 PM LAST NIGHT . WHEN DID YOU LAST DRINK? ____10 PM LAST NIGHT . WHAT DID YOU LAST DRINK? ____WATER . NAME OF PERSON DRIVING YOU HOME? ____DELBERT KIRBY . DO YOU HAVE ANY OTHER QUESTIONS OR CONCERNS NO . VITAL SIGNS WT 184 LBS, HT 66 IN, BMI 29.70 INDEX, BP 162/95 MM HG, HR 63 /MIN, RR 18 /MIN, TEMP 98.4 F, OXYGEN SAT % 96%, NA INITIALS 08:54. ASSESSMENTS MYALGIA - M79.1 (PRIMARY) TREATMENT MYALGIA NOTES: PREOPERATIVE DIAGNOSIS: RIGHT PIRIFORMIS SYNDROME. MYALGIAPOSTOPERATIVE DIAGNOSIS: RIGHT PIRIFORMIS SYNDROME. MYALGIAPROCEDURE: RIGHT PIRIFORMIS MUSCLE BLOCK UNDER FLUOROSCOPIC GUIDANCE.ANESTHESIA: LOCAL.SURGEON: KIARA QUEZADA M.D.PREOPERATIVE NOTE: THE PATIENT HAS HISTORY OF CHRONIC LOW BACK PAIN. I EVALUATED THE PATIENT AND REVIEWED THE CHART. WE BOTH AGREED ON PERFORMING A RIGHT PIRIFORMIS MUSCLE BLOCK UNDER FLUOROSCOPIC GUIDANCE. I WENT THROUGH THE RISKS, ALTERNATIVES AND BENEFITS ASSOCIATED WITH THIS PROCEDURE AND THE PATIENTEXPRESSED THAT SHE WOULD LIKE TO PROCEED. THE PATIENT DENIES UNEXPLAINABLE WEIGHT LOSS, FEVER, CHILLS, OR CHANGES IN URINARY OR BOWEL CONTROL.PROCEDURE NOTE: AFTER CONSENT WAS TAKEN, THE PATIENT WAS BROUGHT TO THE PROCEDURE ROOM AND THE PATIENT WAS PLACED IN THE PRONE POSITION. THE LUMBOSACRAL AREA WAS CLEANED WITH CHLORAPREP SOLUTION AND DRAPED ASEPTICALLY. THE PROCEDURE WAS DONE UNDER STERILE CONDITIONS. LATERALLITY WAS CHECK WITH THE PATIENT AND THE STAFF AT THE TIME OF TIME OUT. UNDER FLUOROSCOPIC GUIDANCE, THE TARGET POINT WAS SELECTED AT THE MIDDLE AREA BETWEEN THE [DEFAULT VALUE]GREATER TROCHANTER OF THE FEMUR AND THE BORDER OF THE SACRUM. LIDOCAINE WAS USED TO NUMB THE SKIN AND THE SUBCUTANEOUS TISSUE BELOW IT. A SPINAL NEEDLE 22 GAUGE, WAS ADVANCED UNDER FLUOROSCOPIC GUIDANCE TO THE SUBSTANCE OF THE LEFT PIRIFORMIS MUSCLE. WHEN APPROPRIATE POSITION OF THE NEEDLE WAS ACHIEVED, ISOVUE-M DYE 30%, 0.25 ML, WAS INJECTED SHOWING ADEQUATE SPREAD OF THE DYE. THEN A SOLUTION OF 30 ML OF BUPIVACAINE, 0.25%, AND KENALOG 40 MG WAS INJECTED. THERE WAS NO EVIDENCE OF BLOOD, PARESTHESIAS OR CEREBROSPINAL FLUID. THE PATIENT WAS SENT TO THE RECOVERY ROOM WHERE SHE WAS MOVING HER EXTREMITIES AND DOING WELL. THERE WERE NO COMPLICATIONS DURING THE PROCEDURE. FLUOROSCOPY TIME WAS 6 SECONDS.POSTOPERATIVE NOTE: I DISCUSSED ALTERNATIVES WITH THE PATIENT. I AM LOOKING FOR LONG-LASTING PAIN RELIEF WITH THIS INTERVENTION. THERE WERE NO COMPLICATIONS. FURTHER RECOMMENDATIONS DEPEND ON HOW THE PATIENT DOES. INSTRUCTIONS WERE GIVEN QUESTIONS WERE ANSWERED PATIENT REPORTS UNDERSTANDING AND AGREES WITH THE PLAN.I, MOISÉS PATE, DOCUMENTED THE ABOVE INFORMATION ACTING A SCRIBE FOR DR. MAYER. I HAVE REVIEWED THE ABOVE DOCUMENT, WRITTEN BY MOISÉS KATE AND I VERIFY THAT IT IS ACCURATE. OTHERS START SOMA TABLET, 350 MG, 1 TABLET NEEDED FOR SPASMS AND PAIN, ORALLY, EVERY 6 HOURS NEEDED MDD3, 4 DAYS, 12, REFILLS 0 DIAGNOSTIC IMAGING [facility] FLUORO GUIDANCE (PAIN)[id number] PROCEDURE CODES 83900 INJ TRIGGER POINT 1/2 MUSCL 6045F RADXPS IN END [id number] PXD 63835 NEEDLE LOCALIZATION BY XRAY DISPOSITION & COMMUNICATION FOLLOW UP 3 WEEKS ELECTRONICALLY SIGNED BY KIARA MAYER MD ON 01/10/2017 AT 01:14 PM EDT DISCLAIMER : THIS IS A VISIT SUMMARY EXTRACTED FROM THE [employer] CHART. IT IS NOT A COPY OF THE [employer] PROGRESS NOTE. MTDD
== END ==
LOC: M PAIN 08:40
PROVIDERS: ATTEND Anesthesiology
DX: G89.29 Other chronic pain (principal); M54.5 Low back pain; M79.1 Myalgia; E78.5 Hyperlipidemia, unspecified; F17.210 Nicotine dependence, cigarettes, uncomplicated; F43.21 Adjustment disorder with depressed mood; E11.65 Type 2 diabetes mellitus with hyperglycemia; I15.9 Secondary hypertension, unspecified; Z88.6 Allergy status to analgesic agent; Z79.84 Long term (current) use of oral hypoglycemic drugs; Z79.899 Other long term (current) drug therapy

== ENCOUNTER 2017-01-09 17:23 | Emergency (ER) | payer OTHER ==
[~2017-01-09] VITALS: Ht 170.2 cm; Wt 83.2 kg
[~2017-01-09 17:23] MED LIST changes: -ATOR80TA59 PO; -BUPIVACAINE HCL 0.25% 30 ML VIAL As Ordered ONE; -BUPR150T5 PO; -CYCL10TA PO; -GABA-283 PO; -ISOVUE-M 300 61% 15ML VIAL (Q9967) As Ordered ONE; -LIDOCAINE 1% SDV INJ 30 ML VIAL As Ordered ONE; -METO37.5 PO; -TIZA4CAP3 PO; -TRIAMCINOLONE ACETONIDE SUSP 40 MG/ML VIAL (J3301) As Ordered ONE; -ZYRT10CA PO; -diazePAM 5 MG TAB As Ordered ONE; -oxyCODONE 5MG TAB As Ordered ONE
[2017-01-09] MEDS ORDERED: NITROGLYCERIN 0.4 MG SUBL TABLET SL PRN (18:00)
[2017-01-09] MEDS: METOPROLOL 5 MG/5 ML VIAL IV SCH ×3 (18:00→18:30)
[2017-01-09 18:18] LABS: BASO % 0.5 % (0.0-1.0); EOS # 0.2 K/mm3 (0.0-0.50); EOS % 1.8 % (0.0-3.0); LARGE UNSTAINED CELL # 0.1 K/mm3 (0.0-0.4); LARGE UNSTAINED CELL % 1.2 % (0.0-4.0); LYMPH # 2.5 K/mm3 (1.5-4.5); LYMPH % 21.4 % (24.0-44.0); MEAN CORPUSCULAR HEMOGLOBIN 34.6 pg (27.0-33.0); MEAN CORPUSCULAR HGB CONC 35.1 g/dl (32.0-36.5); MEAN CORPUSCULAR VOLUME 98.6 fl (80.0-96.0); MONO # 0.7 K/mm3 (0.0-0.8); MONO % 6.2 % (0.0-5.0); NEUTROPHILS # 7.7 K/mm3 (1.8-7.7); NEUTROPHILS % 68.9 % (36.0-66.0); PLATELET COUNT, AUTOMATED 127 k/mm3 (150-450); RED CELL DISTRIBUTION WIDTH 13.3 % (11.5-14.5); WHITE BLOOD COUNT 11.2 K/mm3 (4.0-10.0)
[2017-01-09 18:30] VITALS: BP 132/80
--- NOTE | 2017-01-09 18:40 | REP ---
HISTORY: Chest pain. COMPARISON: 08/31/2015 The technique utilized in obtaining the radiograph has magnified the cardiac silhouette and accentuated the interstitial markings. The superior mediastinal structures are midline. The cardiac silhouette is unremarkable in size, shape, and position. The diaphragmatic surfaces of the lungs are regular, and the costophrenic angles are clear. The pulmonary cancino are clear. The imaged osseous structures are intact. IMPRESSION: There is no acute cardiopulmonary disease. No significant change from the prior exam. Signed by Elijah Acevedo DO 01/09/2017 07:10 P
[2017-01-09 18:48] VITALS: BP 132/89
[2017-01-09 18:48] LABS: ANION GAP 8 MEQ/L (8-16); BLOOD UREA NITROGEN 17 MG/DL (7-18); CALCIUM LEVEL 8.7 MG/DL (8.5-10.1); CARBON DIOXIDE LEVEL 23 MEQ/L (21-32); CHLORIDE LEVEL 106 MEQ/L (98-107); CREATININE FOR GFR 0.63 MG/DL (0.70-1.30); GLOMERULAR FILTRATION RATE > 60.0 (>56); GLUCOSE, FASTING 107 MG/DL (70-105); POTASSIUM SERUM 4.1 MEQ/L (3.5-5.1); SODIUM LEVEL 137 MEQ/L (136-145)
[2017-01-09] MEDS ORDERED: TRAM50TA2 PO (19:07)
[2017-01-09] MEDS ORDERED: CYCL10TA PO (19:07)
--- NOTE | 2017-01-10 09:03 | ECGEPIP ---
Stationary ECG Study [facility] - ED Test Date: 2017-01-09 Pat Name: ALLYN PERERA Department: Room: - Gender: M [employer] C[employer]: RICKY : 1960 Requested By: VERONICA JIMENEZ Order Number: [id number] Reading MD: Irene Serrano Measurements Intervals [place] Rate: 58 P: 7 CA: 180 QRS: 1 QRSD: 97 T: 1 QT: 412 QTc: 407 Interpretive Statements SINUS BRADYCARDIA VOLTAGE CRITERIA FOR LVH SIMILAR 08/31/15 Electronically Signed On 01-10-2017 9:02:55 EDT by Irene Serrano
[2017-02-02] MEDS ORDERED: METO37.5 PO (08:30)
[2017-02-02] MEDS ORDERED: ZYRT10CA PO (08:30)
[2017-02-02] MEDS ORDERED: ATOR80TA59 PO (08:30)
[2017-02-02] MEDS ORDERED: TIZA4CAP3 PO (08:30)
[2017-02-02] MEDS ORDERED: GABA-283 PO (08:30)
[2017-02-02] MEDS ORDERED: BUPR150T5 PO (08:30)
[2017-02-02] MEDS ORDERED: LISI10TA4 PO (08:30)
== END 2017-01-09 19:22 | disposition home or self-care (01) ==
LOC: M ED 17:23
DX: I10 Essential (primary) hypertension (principal); R07.89 Other chest pain; E11.9 Type 2 diabetes mellitus without complications; E78.5 Hyperlipidemia, unspecified; Z86.73 Personal history of transient ischemic attack (TIA), and cerebral infarction without residual deficits; G89.29 Other chronic pain; R52 Pain, unspecified; F17.200 Nicotine dependence, unspecified, uncomplicated; Z82.49 Family history of ischemic heart disease and other diseases of the circulatory system; Z79.84 Long term (current) use of oral hypoglycemic drugs; Z79.899 Other long term (current) drug therapy; Z88.6 Allergy status to analgesic agent

== ENCOUNTER → 2017-01-11 | Outpatient (CLI) | payer OTHER ==
[~2017-01-11] MED LIST changes: +ATOR80TA59 PO; +BUPR150T5 PO; +CYCL10TA PO; +GABA-283 PO; +METO37.5 PO; +TIZA4CAP3 PO; +ZYRT10CA PO
--- NOTE | 2017-02-01 01:39 | ECWPNPC ---
PATIENT NAME: ALLYN PERERA : 1960 GENDER: MALE VISIT DATE: 01/11/2017 DISCHARGE DATE: 01/11/17 1518 VISIT LOCKED DATE TIME: PHYSICIAN: ALFA CARRASCO RESOURCE: ALFA CARRASCO REASON FOR APPOINTMENT 1. POST PRIFORMIS MUSCLE INJECTION-RIGHT HISTORY OF PRESENT ILLNESS HISTORY OF PRESENT ILLNESS: HERE FOR POST PROCEDURE F/U.HAD RIGHT PRIFORMIS INJECTION ON 12-28-16.REPORTS SIGNIFICANT IMPROVEMENT IN PAIN THAT PERSISTS TODAY.CURRENTLY USING GABAPENTIN 600MG TID,TIZANIDINE 4MG BID PRN AND MELOXICAM 15MG DAILY.FINDS CURRENT MEDICATION EFFECTIVE AT REDUCING PAIN AND KEEPING HIM FUNCTIONAL.DENIES SIDE EFFECTS. PAIN THE PATIENT DESCRIBES THE PAIN... FALL RISK SCREENING: SCREENING :NO FALLS IN THE PAST YEAR CURRENT MEDICATIONS TAKING SOMA 350 MG TABLET 1 TABLET NEEDED FOR SPASMS AND PAIN ORALLY EVERY 6 HOURS NEEDED MDD3, NOTES: HAS NOT STARTED TAKING VALACYCLOVIR HCL 1 GM TABLET 1 TABLET ORALLY EVERY 24 HRS, NOTES: BEEN A WHILE TAKING AMLODIPINE BESYLATE 10 MG TABLET 1 TABLET ORALLY ONCE A DAY TAKING BUPROPION HCL ER (SR) 150 MG TABLET EXTENDED RELEASE 12 HOUR 1 TABLET ORALLY TWICE A DAY TAKING ZYRTEC ALLERGY 10 MG TABLET 1 TABLET ORALLY ONCE A DAY NEEDED TAKING LISINOPRIL 10 MG TABLET 1 TABLET ORALLY ONCE A DAY TAKING ATORVASTATIN CALCIUM 80 MG TABLET 1 TABLET ORALLY ONCE A DAY TAKING BLOOD GLUCOSE TEST STRIP - STRIP 1 STRIP IN VITRO DX:E11.65 TWICE DAILY TAKING BLOOD GLUCOSE METER - KIT 1 METER DX:E11.65 TWICE DAILY TAKING BD LANCET ULTRAFINE 33G - MISCELLANEOUS 1 LANCET INTRADERMALLY TWICE DAILY DX:E11.65 TAKING ALCOHOL PREP PAD 70 % PAD 1 TOPICALLY TWICE DAILY DX:E11.65 TAKING INVOKANA 100 MG TABLET 1 TABLET BEFORE FIRST MEAL ORALLY ONCE A DAY TAKING TIZANIDINE HCL 4 MG TABLET 1 TABLET NEEDED ORALLY NEEDED FOR SPASMS AND PAIN BEFORE BEDTIME MAY REPEAT IN 4 HRS MDD2 TAKING GABAPENTIN 600 MG TABLET 1 ORALLY THREE TIMES A DAY TAKING MELOXICAM 15 MG TABLET 1 TABLET ORALLY TAKE DAILY FOR 5 DAYS, OFF FOR 2 TAKING METFORMIN HCL 1000 MG TABLET 1 TABLET WITH MEALS ORALLY TWICE A DAY TAKING METOPROLOL TARTRATE 100 MG TABLET 1 TABLET WITH FOOD ORALLY TWICE A DAY NOT-TAKING KETOROLAC TROMETHAMINE 10 MG TABLET 1 TABLET WITH FOOD OR MILK NEEDED ORALLY EVERY 6 HRS NOT-TAKING KETOCONAZOLE 2 % CREAM 1 APPLICATION TO AFFECTED AREA EXTERNALLY TO PENIS TWICE A DAY MEDICATION LIST REVIEWED AND RECONCILED WITH THE PATIENT PAST MEDICAL HISTORY HTN SHORT'S PALSY JOINT PAIN UNSPECIFIED ESSENTIAL HYPERTENSION PAIN IN JOINT, SHOULDER REGION NONALLOPATHIC LESION OF THORACIC REGION, NOT ELSEWHERE CLASSIFIED NONDEPENDENT TOBACCO USE DISORDER SMOKING MIGRAINE WITHOUT AURA, WITH INTRACTABLE MIGRAINE, SO STATED, WITHOUT MENTION OF STATUS MIGRAINOSUS TRANSAMINITIS HYPERGLYCEMIA ALLERGY ALLERGIC CONJUNCTIVITIS HYPERLIPIDEMIA ESSENTIAL HYPERTENSION ASCVD10 (2016)- 11.5% DIEBETIC TYPE 2 EPIDIDYMITIS ALLERGIES ASPIR-81: VOMITING: ALLERGY REVIEW OF SYSTEMS REVIEWED BY: PROVIDER: ALFA JIMENEZ . CONSTITUTIONAL: ANY CHANGE IN YOUR MEDICAL CONDITION? NO . CHILLS NO . FEVER NO . INFECTION: DO YOU HAVE NEW INFECTIONS? NO . DO YOU HAVE HISTORY OF MRSA? NO . MUSCULOSKELETAL: ANY NEW PATTERNS OF PAIN OR NUMBNESS? YES, PT STATES HE WENT TO [facility] ER FOR LEFT SIDED CHEST PAIN ON 01/09/17, WHERE HE WAS TX'S FOR MUSCULAR PAIN WITH FLEXARIL AND TRAMADOL, PT STA ES THESE MEDS HELPED A LITTLE BIT.&NBSP;. GASTROENTEROLOGY: ANY NEW CHANGE IN BOWEL CONTROL? NO . GENITOURINARY: ANY NEW CHANGE IN BLADDER CONTROL? NO . IS THERE A CHANCE YOU COULD BE ? NO . HEMATOLOGY/LYMPH: DO YOU TAKE ANY BLOOD THINNERS? (FOR EXAMPLE- COUMADIN, PLAVIX, AGGRENOX, PLATEL, PRADAXA, OR XARELTO) NO . WHEN WAS YOUR LAST DOSE? DATE: TIME: . NEUROLOGY: HAVE YOU FALLEN IN THE PAST 6 MONTHS? NO . ANY NEW EXTREMITY NUMBNESS OR WEAKNESS? NO . CARDIOLOGY: DO YOU HAVE A PACEMAKER OR DEFIBRILLATOR? NO . RESPIRATORY: HAVE YOU BEEN SICK IN THE PAST WEEK? NO . FEVER NO . FLU LIKE SYMPTOMS? NO . COUGH NO . INTEGUMENTARY: DO YOU HAVE ANY RASHES OR OPEN SORES? NO . ALLERGIC/IMMUNO: ARE YOU ALLERGIC TO SHELLFISH OR IV DYE? NO . ANY NEW ALLERGIES? NO . PSYCHIATRIC: DO YOU HAVE THOUGHTS OF HURTING YOURSELF OR SOMEONE ELSE? NO . ARE YOU ABUSED, NEGLECTED, OR IN AN UNSAFE ENVIRONMENT? NO . ENDOCRINOLOGY: ARE YOU DIABETIC? YES . OTHER: DO YOU NEED ANY PRESCRIPTIONS? YES, GABAPENTIN, MOBIC, TIZANIDINE . IF YES, PLEASE LIST: ____ . ANY NEW PROBLEMS WITH YOUR MEDICATIONS? NO . WHEN DID YOU LAST EAT? ____ . WHEN DID YOU LAST DRINK? ____ . WHAT DID YOU LAST DRINK? ____ . NAME OF PERSON DRIVING YOU HOME? ____ . DO YOU HAVE ANY OTHER QUESTIONS OR CONCERNS NO . VITAL SIGNS WT 191.2 LBS, HT 66 IN, BMI 30.86 INDEX, BP 147/95 MM HG, HR 64 /MIN, RR 18 /MIN, TEMP 98.0 F, OXYGEN SAT % 95%, SAFE IN ENV? (Y/N) Y, NA INITIALS NM 14:52, REVIEWED BY: EM. EXAMINATION GENERAL EXAMINATION: LUNGS:LUNG SOUNDS ARE CLEAR. HEART:HEART RATE REGULAR. MUSCULOSKELETAL:*, MUSCLE STRENGTH TESTING 5/5 BILATERAL LOWER EXTREMITIES.SPECIFIC POINT TENDERNESS OVER RIGHT PIRIFORMIS.. DIAGNOSTIC:MRI L/S SPINE 07-06-16-REVIEWED.. ASSESSMENTS PIRIFORMIS MUSCLE PAIN - M79.1 (PRIMARY) LUMBAR SPONDYLOSIS - M47.816 TREATMENT PIRIFORMIS MUSCLE PAIN CONTINUE TIZANIDINE HCL TABLET, 4 MG, 1 TABLET NEEDED, ORALLY NEEDED FOR SPASMS AND PAIN, BEFORE BEDTIME MAY REPEAT IN 4 HRS MDD2 CONTINUE GABAPENTIN TABLET, 600 MG, 1, ORALLY, THREE TIMES A DAY CONTINUE MELOXICAM TABLET, 15 MG, 1 TABLET, ORALLY, TAKE DAILY FOR 5 DAYS, OFF FOR 2 PROCEDURE CODES FA211 ESTABILISHED PATIENT FORMERLY [facility] CHARGE DISPOSITION & COMMUNICATION FOLLOW UP 2 MONTHS ELECTRONICALLY SIGNED BY BARBARA HUFF ON 01/31/2017 AT 07:21 PM EDT DISCLAIMER : THIS IS A VISIT SUMMARY EXTRACTED FROM THE [employer] CHART. IT IS NOT A COPY OF THE [employer] PROGRESS NOTE. MTDD
== END ==
LOC: M PAIN 14:40
PROVIDERS: ATTEND Nurse Practitioner Family
DX: G89.29 Other chronic pain (principal); M47.816 Spondylosis without myelopathy or radiculopathy, lumbar region; M79.1 Myalgia; E78.5 Hyperlipidemia, unspecified; F17.200 Nicotine dependence, unspecified, uncomplicated; F43.21 Adjustment disorder with depressed mood; E11.65 Type 2 diabetes mellitus with hyperglycemia; I15.9 Secondary hypertension, unspecified; Z88.6 Allergy status to analgesic agent; Z79.84 Long term (current) use of oral hypoglycemic drugs; Z79.899 Other long term (current) drug therapy

== ENCOUNTER → 2017-02-01 | Outpatient (CLI) | payer OTHER ==
--- NOTE | 2017-03-01 01:08 | ECWPNPC ---
PATIENT NAME: ALLYN PERERA : 1960 GENDER: MALE VISIT DATE: 02/01/2017 DISCHARGE DATE: 02/01/17 1236 VISIT LOCKED DATE TIME: PHYSICIAN: ALFA CARRASCO RESOURCE: ALFA CARRASCO REASON FOR APPOINTMENT 1. BACK HISTORY OF PRESENT ILLNESS HISTORY OF PRESENT ILLNESS: HERE ON URGENT BASIS DUE TO INCREASE IN RIGHT LOW BACK AND RIGHT LEG PAIN.THIS BEGAN SHORTLY AFTER LAST VISIT.RATING PAIN VAS 5/10.DESCRIBES PAIN CONSTANT ACHING AND THROBBING .PAIN IS AGGREVATED WITH WEIGHT BEARING.CURRENTLY USING GABAPENTIN 600MG TID AND TIZANIDINE AT HS.WAS USING SOMA DURING DAYTIME BUT INSURANCE WILL NOT COVER.DISCUSSED MEDICATION AND TREATMENT OPTIONS. PAIN THE PATIENT DESCRIBES THE PAIN... FALL RISK SCREENING: SCREENING :NO FALLS IN THE PAST YEAR CURRENT MEDICATIONS TAKING VALACYCLOVIR HCL 1 GM TABLET 1 TABLET ORALLY EVERY 24 HRS TAKING BUPROPION HCL ER (SR) 150 MG TABLET EXTENDED RELEASE 12 HOUR 1 TABLET ORALLY TWICE A DAY TAKING ZYRTEC ALLERGY 10 MG TABLET 1 TABLET ORALLY ONCE A DAY NEEDED TAKING ATORVASTATIN CALCIUM 80 MG TABLET 1 TABLET ORALLY ONCE A DAY TAKING BLOOD GLUCOSE TEST STRIP - STRIP 1 STRIP IN VITRO DX:E11.65 TWICE DAILY TAKING BLOOD GLUCOSE METER - KIT 1 METER DX:E11.65 TWICE DAILY TAKING BD LANCET ULTRAFINE 33G - MISCELLANEOUS 1 LANCET INTRADERMALLY TWICE DAILY DX:E11.65 TAKING ALCOHOL PREP PAD 70 % PAD 1 TOPICALLY TWICE DAILY DX:E11.65 TAKING INVOKANA 100 MG TABLET 1 TABLET BEFORE FIRST MEAL ORALLY ONCE A DAY TAKING METFORMIN HCL 1000 MG TABLET 1 TABLET WITH MEALS ORALLY TWICE A DAY TAKING METOPROLOL TARTRATE 100 MG TABLET 1 TABLET WITH FOOD ORALLY TWICE A DAY TAKING TIZANIDINE HCL 4 MG TABLET 1 TABLET NEEDED ORALLY NEEDED FOR SPASMS AND PAIN BEFORE BEDTIME MAY REPEAT IN 4 HRS MDD2 TAKING GABAPENTIN 600 MG TABLET 1 ORALLY THREE TIMES A DAY TAKING MELOXICAM 15 MG TABLET 1 TABLET ORALLY TAKE DAILY FOR 5 DAYS, OFF FOR 2 TAKING AMLODIPINE BESYLATE 10 MG TABLET 1 TABLET ORALLY ONCE A DAY TAKING LISINOPRIL 20 MG TABLET 1 TABLET ORALLY BID NOT-TAKING SOMA 350 MG TABLET 1 TABLET NEEDED FOR SPASMS AND PAIN ORALLY EVERY 6 HOURS NEEDED MDD3 NOT-TAKING KETOROLAC TROMETHAMINE 10 MG TABLET 1 TABLET WITH FOOD OR MILK NEEDED ORALLY EVERY 6 HRS NOT-TAKING KETOCONAZOLE 2 % CREAM 1 APPLICATION TO AFFECTED AREA EXTERNALLY TO PENIS TWICE A DAY MEDICATION LIST REVIEWED AND RECONCILED WITH THE PATIENT PAST MEDICAL HISTORY HTN SHORT'S PALSY JOINT PAIN UNSPECIFIED ESSENTIAL HYPERTENSION PAIN IN JOINT, SHOULDER REGION NONALLOPATHIC LESION OF THORACIC REGION, NOT ELSEWHERE CLASSIFIED NONDEPENDENT TOBACCO USE DISORDER SMOKING MIGRAINE WITHOUT AURA, WITH INTRACTABLE MIGRAINE, SO STATED, WITHOUT MENTION OF STATUS MIGRAINOSUS TRANSAMINITIS FEMORAL HERNIA ( SCHEDULE FOR SURGERY ON 02/10) HYPERGLYCEMIA ALLERGY ALLERGIC CONJUNCTIVITIS HYPERLIPIDEMIA ESSENTIAL HYPERTENSION ASCVD10 (2016)- 11.5% DIEBETIC TYPE 2 EPIDIDYMITIS ALLERGIES ASPIR-81: VOMITING: ALLERGY REVIEW OF SYSTEMS REVIEWED BY: PROVIDER: ALFA JIMENEZ . CONSTITUTIONAL: ANY CHANGE IN YOUR MEDICAL CONDITION? NO . CHILLS NO . FEVER NO . INFECTION: DO YOU HAVE NEW INFECTIONS? NO . DO YOU HAVE HISTORY OF MRSA? NO . MUSCULOSKELETAL: ANY NEW PATTERNS OF PAIN OR NUMBNESS? YES, DOWN THE RIGHT LEG - SHOOTING PAIN . GASTROENTEROLOGY: ANY NEW CHANGE IN BOWEL CONTROL? NO . GENITOURINARY: ANY NEW CHANGE IN BLADDER CONTROL? NO . IS THERE A CHANCE YOU COULD BE ? NO . HEMATOLOGY/LYMPH: DO YOU TAKE ANY BLOOD THINNERS? (FOR EXAMPLE- COUMADIN, PLAVIX, AGGRENOX, PLATEL, PRADAXA, OR XARELTO) NO . WHEN WAS YOUR LAST DOSE? DATE: TIME: . NEUROLOGY: HAVE YOU FALLEN IN THE PAST 6 MONTHS? NO . ANY NEW EXTREMITY NUMBNESS OR WEAKNESS? NO . CARDIOLOGY: DO YOU HAVE A PACEMAKER OR DEFIBRILLATOR? NO . RESPIRATORY: HAVE YOU BEEN SICK IN THE PAST WEEK? NO . FEVER NO . FLU LIKE SYMPTOMS? NO . COUGH NO . INTEGUMENTARY: DO YOU HAVE ANY RASHES OR OPEN SORES? NO . ALLERGIC/IMMUNO: ARE YOU ALLERGIC TO SHELLFISH OR IV DYE? NO . ANY NEW ALLERGIES? NO . PSYCHIATRIC: DO YOU HAVE THOUGHTS OF HURTING YOURSELF OR SOMEONE ELSE? NO . ARE YOU ABUSED, NEGLECTED, OR IN AN UNSAFE ENVIRONMENT? NO . ENDOCRINOLOGY: ARE YOU DIABETIC? YES . OTHER: DO YOU NEED ANY PRESCRIPTIONS? YES . IF YES, PLEASE LIST: GABAPENTIN . ANY NEW PROBLEMS WITH YOUR MEDICATIONS? YES , SOMA NOT COVERED BY INSURANCE / THEY TOLD HIM TO HAVE YOU ORDER SOMETHING ELSE . WHEN DID YOU LAST EAT? ____ . WHEN DID YOU LAST DRINK? ____ . WHAT DID YOU LAST DRINK? ____ . NAME OF PERSON DRIVING YOU HOME? ____ . DO YOU HAVE ANY OTHER QUESTIONS OR CONCERNS NO . VITAL SIGNS WT 191 LBS, HT 66 IN, BMI 30.82 INDEX, BP 156/94 MM HG, HR 60 /MIN, RR 18 /MIN, TEMP 98.3 F, OXYGEN SAT % 97%, NA INITIALS AW 1158, REVIEWED BY: NL. EXAMINATION GENERAL EXAMINATION: LUNGS:LUNG SOUNDS ARE CLEAR. HEART:HEART RATE REGULAR. MUSCULOSKELETAL:*, MUSCLE STRENGTH TESTING 5/5 BILATERAL LOWER EXTREMITIES.SPECIFIC POINT TENDERNESS OVER RIGHT SIJ.REPORTING NUMBNESS TO LIGHT TOUCH RIGHT LATERAL THIGH.. DIAGNOSTIC:MRI L/S SPINE 07-06-16-REVIEWED.. ASSESSMENTS PIRIFORMIS MUSCLE PAIN - M79.1 (PRIMARY) LUMBAR SPONDYLOSIS - M47.816 TREATMENT PIRIFORMIS MUSCLE PAIN STOP SOMA TABLET, 350 MG, 1 TABLET NEEDED FOR SPASMS AND PAIN, ORALLY, EVERY 6 HOURS NEEDED MDD3, NOTES: HAS NOT STARTED CONTINUE TIZANIDINE HCL TABLET, 4 MG, 1 TABLET NEEDED, ORALLY NEEDED FOR SPASMS AND PAIN, BEFORE BEDTIME MAY REPEAT IN 4 HRS MDD2 CONTINUE GABAPENTIN TABLET, 600 MG, 1, ORALLY, THREE TIMES A DAY START ROBAXIN TABLET, 500 MG, 1.5 TABLETS, ORALLY, BID, 30 DAY(S), 60, REFILLS 2 NOTES: RIGHT SIJ. PREVENTIVE MEDICINE DISCUSSED SIJ INJECTION AND PRE PROCEDURE CARE / KNOWS TO STOP DIABETIC MEDS THAT AM. PROCEDURE CODES FA211 ESTABILISHED PATIENT [facility] CHARGE DISPOSITION & COMMUNICATION FOLLOW UP POST PROC (REASON: RIGHT SIJ) ELECTRONICALLY SIGNED BY BARBARA HUFF ON 02/28/2017 AT 09:40 AM EDT DISCLAIMER : THIS IS A VISIT SUMMARY EXTRACTED FROM THE [employer] CHART. IT IS NOT A COPY OF THE [employer] PROGRESS NOTE. INESD
== END ==
LOC: M PAIN 11:15
PROVIDERS: ATTEND Nurse Practitioner Family
DX: M79.1 Myalgia (principal); M47.816 Spondylosis without myelopathy or radiculopathy, lumbar region; M54.5 Low back pain; M79.604 Pain in right leg; I10 Essential (primary) hypertension; E78.5 Hyperlipidemia, unspecified; J30.9 Allergic rhinitis, unspecified; E11.21 Type 2 diabetes mellitus with diabetic nephropathy; Z79.84 Long term (current) use of oral hypoglycemic drugs; Z79.899 Other long term (current) drug therapy; Z91.09 Other allergy status, other than to drugs and biological substances; Z88.6 Allergy status to analgesic agent

== ENCOUNTER 2017-02-10 12:24 | Day surgery (SDC) | payer OTHER ==
[~2017-02-10] VITALS: Ht 170.2 cm; Wt 86.2 kg
[~2017-02-10 12:24] MED LIST changes: +BUPIVACAINE/EPIN 0.25% 30 ML VIAL As Ordered ONE
[2017-02-10] MEDS ORDERED: LR 1,000 ML IV ONE (13:15)
[2017-02-10] MEDS ORDERED: ROCURONIUM BROMIDE 50 MG/5 ML VIAL/SYRINGE As Ordered ONE (14:53)
[2017-02-10] MEDS ORDERED: LIDOCAINE 2% INJ 100 MG/5 ML SDV (FOR ANES.) As Ordered ONE (14:53)
[2017-02-10] MEDS ORDERED: NEOSTIGMINE 1MG/ML 5 ML SYRINGE (J2710) As Ordered ONE (14:53)
[2017-02-10] MEDS ORDERED: dexameTHASONE 4 MG/ML 1ML VIAL (J1100) As Ordered ONE (14:53)
[2017-02-10] MEDS ORDERED: GLYCOPYRROLATE INJ 0.2 MG/ML 2 ML VIAL As Ordered ONE (14:53)
[2017-02-10] MEDS ORDERED: ONDANSETRON 4MG/2ML VIAL (J2405) As Ordered ONE ×2 (14:53→22:14)
[2017-02-10] MEDS ORDERED: PROPOFOL 200 MG/20 ML VIAL As Ordered ONE (14:53)
[2017-02-10] MEDS ORDERED: HYDROmorphone HCL 2 MG/ML 1ML VIAL (J1170) As Ordered ONE (14:54)
[2017-02-10] MEDS ORDERED: fentaNYL 100 MCG/2 ML INJECTION (J3010) As Ordered ONE (14:54)
[2017-02-10] MEDS ORDERED: MIDAZOLAM INJ 2 MG/2 ML VIAL (J2250) As Ordered ONE (14:54)
[2017-02-10] MEDS ORDERED: SUGAMMADEX SODIUM 500 MG/5 ML VIAL (BRIDION) As Ordered ONE (19:32)
[2017-02-10] MEDS ORDERED: LR 1,000 ML IV SCH (20:30)
[2017-02-10] MEDS ORDERED: ONDANSETRON 4MG/2ML VIAL (J2405) IV PRN (20:30)
[2017-02-10] MEDS ORDERED: MEPERIDINE INJ 25 MG/ML VIAL (J2175) IV PRN (20:30)
[2017-02-10] MEDS ORDERED: HYDROmorphone HCL 1 MG/ML SYRINGE (J1170) IV PRN (20:30)
[2017-02-10] MEDS ORDERED: fentaNYL 100 MCG/2 ML INJECTION (J3010) IV PRN (20:30)
[2017-02-10] MEDS ORDERED: NORCO, ANEXSIA 5/325MG TABLET (HYDROcodone/ACETAMINOPHEN) PO PRN (20:30)
[2017-02-10 22:50] VITALS: BP 147/94
--- NOTE | 2017-02-13 19:59 | RO ---
DATE OF PROCEDURE: 02/10/2017 PREOPERATIVE DIAGNOSIS: Left inguinal hernia. POSTOPERATIVE DIAGNOSIS: Left inguinal hernia. PROCEDURE: Robotic-assisted left inguinal hernia repair. SURGEON: Dr. Gabriele Wells GAMMA FACILITIES OPERATOR: Dr. Andrew Morris ANESTHESIA: General. ESTIMATED BLOOD LOSS: 5 mL. COMPLICATIONS: None. INDICATIONS FOR PROCEDURE: The patient is a 56-year-old male who presents with a left inguinal hernia. Recommendation was to proceed with robotic-assisted, possible laparoscopic left inguinal hernia repair. Risks and benefits of procedure not limited to but including bleeding, infection, hernia recurrence, hernia formation, damage to surrounding structures including blood vessels, nerves and testicle were discussed in detail with the patient. Informed consent was obtained an d procedure was planned. DESCRIPTION OF PROCEDURE: The patient brought back to operating room seven after sufficient sedation, Vidal catheter was placed and the abdomen and perineal area was sterilely prepped and draped. Next, a time-out was done to confirm proper patient, proper procedure. Following that, the 5 mm incision was made supraumbilically. Incision was carried down to the level of the fascia. Veress needle was inserted and the abdomen was insufflated to 15 mmHg. Next, a 5 mm Optiview port was used to gain access to the abdomen. Once the abdomen was entered, 8 mm ports were placed in the left midabdomen and the right midabdomen. Then, the 5 mm port was removed and replaced with an 8 mm robotic port. Once this was completed, the robot was docked. Next, the abdomen was examined from the inside. There were no adhesions to the left midabdomen. The peritoneum was opened just superiorly and laterally to the inferior epigastric. Once this incision was created into the peritoneum, the preperitoneal space was dissected free until the cord structures could all be easily identified. After carefully manipulating the cord structures, there was a very large fatty lipoma extending down into the inguinal canal. This was dissected free and removed through the port site by the employment assistant. Once that was removed, the dissection was carried medially until the pubic symphysis could be identified. Just superior and lateral to the pubic symphysis, there was another direct hernia containing a large chunk of fat as well. This also was removed. Once all of this was completed and the herniated fat was all removed, the Bard 3DMax Light Mesh was placed inside the preperitoneal space on the left. It was sutured to pubic symphysis using a #0 Vicryl suture. Mesh was then laid flat over top of the defect site. The peritoneum was then closed using a #2-0 barbed suture thus completing the procedure. Once this completed, the robot was undocked, the abdomen was desufflated. Skin incisions were closed with #4-0 Vicryl subcuticular sutures. The abdomen was cleaned and dried. Steri-Strips, 4 x 4 and tape were applied thus ending procedure.
== END 2017-02-10 22:50 | disposition home or self-care (01) ==
LOC: M SDC 12:24
PROVIDERS: ATTEND Surgery
DX: K40.90 Unilateral inguinal hernia, without obstruction or gangrene, not specified as recurrent (principal); E11.9 Type 2 diabetes mellitus without complications; I10 Essential (primary) hypertension; E78.5 Hyperlipidemia, unspecified; F41.9 Anxiety disorder, unspecified; F32.9 Major depressive disorder, single episode, unspecified; F17.210 Nicotine dependence, cigarettes, uncomplicated; Z79.899 Other long term (current) drug therapy
CPT/HCPCS: 49650; C1781

== ENCOUNTER → 2017-02-22 | Outpatient (REF) | payer OTHER ==
[~2017-02-22] MED LIST changes: -BUPIVACAINE/EPIN 0.25% 30 ML VIAL As Ordered ONE
[2017-02-22 14:46] LABS: CALCIUM OXALATE CRYSTALS SMALL
== END ==
LOC: M SMT 13:24
PROVIDERS: ATTEND Urology
DX: N50.3 Cyst of epididymis (principal)

== ENCOUNTER → 2017-03-09 | Outpatient (CLI) | payer OTHER ==
[~2017-03-09] MED LIST changes: +BUPIVACAINE HCL 0.25% 30 ML VIAL As Ordered ONE; +ISOVUE-M 300 61% 15ML VIAL (Q9967) As Ordered ONE; +LIDOCAINE 1% SDV INJ 30 ML VIAL As Ordered ONE; +TRIAMCINOLONE ACETONIDE SUSP 40 MG/ML VIAL (J3301) As Ordered ONE; +diazePAM 5 MG TAB As Ordered ONE; +oxyCODONE 5MG TAB As Ordered ONE
--- NOTE | 2017-03-09 17:08 | REP ---
Right SI joint injection: Three views, intraoperative. History: Right SI joint injection for pain. 15 seconds of fluoroscopy time is reported. Findings: A sequence of three last image hold fluoroscopic spot radiographs of the right SI joint document needle position and contrast injection associated with SI joint injection procedure. Signed by Wang Laureano MD 03/09/2017 06:03 P
--- NOTE | 2017-03-09 23:59 | ECWPNPC ---
PATIENT NAME: ALLYN PERERA : 1960 GENDER: MALE VISIT DATE: 03/09/2017 DISCHARGE DATE: 03/09/17 1219 VISIT LOCKED DATE TIME: PHYSICIAN: KIARA MAYER RESOURCE: KIARA MAYER REASON FOR APPOINTMENT 1. RT SIJ HISTORY OF PRESENT ILLNESS HISTORY OF PRESENT ILLNESS: PAIN THE PATIENT DESCRIBES THE PAIN... FALL RISK SCREENING: SCREENING :NO FALLS IN THE PAST YEAR CURRENT MEDICATIONS TAKING TIZANIDINE HCL 4 MG TABLET 1 TABLET NEEDED ORALLY NEEDED FOR SPASMS AND PAIN BEFORE BEDTIME MAY REPEAT IN 4 HRS MDD2, NOTES: 03/08/17@2200 TAKING GABAPENTIN 600 MG TABLET 1 ORALLY THREE TIMES A DAY, NOTES: 03/08/17@0800 TAKING BUPROPION HCL ER (SR) 150 MG TABLET EXTENDED RELEASE 12 HOUR 1 TABLET ORALLY TWICE A DAY, NOTES: 03/08/17@1800 TAKING ZYRTEC ALLERGY 10 MG TABLET 1 TABLET ORALLY ONCE A DAY NEEDED, NOTES: 0800 TAKING ATORVASTATIN CALCIUM 80 MG TABLET 1 TABLET ORALLY ONCE A DAY, NOTES: 03/08/17@1800 TAKING BLOOD GLUCOSE TEST STRIP - STRIP 1 STRIP IN VITRO DX:E11.65 TWICE DAILY TAKING BLOOD GLUCOSE METER - KIT 1 METER DX:E11.65 TWICE DAILY TAKING BD LANCET ULTRAFINE 33G - MISCELLANEOUS 1 LANCET INTRADERMALLY TWICE DAILY DX:E11.65 TAKING ALCOHOL PREP PAD 70 % PAD 1 TOPICALLY TWICE DAILY DX:E11.65 TAKING METFORMIN HCL 1000 MG TABLET 1 TABLET WITH MEALS ORALLY TWICE A DAY, NOTES: 03/08/17@1800 TAKING METOPROLOL TARTRATE 100 MG TABLET 1 TABLET WITH FOOD ORALLY TWICE A DAY, NOTES: 0800 TAKING MELOXICAM 15 MG TABLET 1 TABLET ORALLY TAKE DAILY FOR 5 DAYS, OFF FOR 2, NOTES: 2-3 DAYS TAKING LISINOPRIL 20 MG TABLET 1 TABLET ORALLY ONCE DAILY, NOTES: 03/08/17@1400 TAKING AMLODIPINE BESYLATE 10 MG TABLET 1 TABLET ORALLY ONCE A DAY, NOTES: 0800 NOT-TAKING KETOROLAC TROMETHAMINE 10 MG TABLET 1 TABLET WITH FOOD OR MILK NEEDED ORALLY EVERY 6 HRS DISCONTINUED INVOKANA 100 MG TABLET 1 TABLET BEFORE FIRST MEAL ORALLY ONCE A DAY DISCONTINUED ROBAXIN 500 MG TABLET 1.5 TABLETS ORALLY BID, NOTES: TAKES PRN DISCONTINUED KETOCONAZOLE 2 % CREAM 1 APPLICATION TO AFFECTED AREA EXTERNALLY TO PENIS TWICE A DAY DISCONTINUED DIFLUCAN 200 MG TABLET 1 TABLET ORALLY ONCE A DAY MEDICATION LIST REVIEWED AND RECONCILED WITH THE PATIENT PAST MEDICAL HISTORY HTN SHORT'S PALSY JOINT PAIN UNSPECIFIED ESSENTIAL HYPERTENSION PAIN IN JOINT, SHOULDER REGION NONALLOPATHIC LESION OF THORACIC REGION, NOT ELSEWHERE CLASSIFIED NONDEPENDENT TOBACCO USE DISORDER SMOKING MIGRAINE WITHOUT AURA, WITH INTRACTABLE MIGRAINE, SO STATED, WITHOUT MENTION OF STATUS MIGRAINOSUS TRANSAMINITIS FEMORAL HERNIA ( SCHEDULE FOR SURGERY ON 02/10) HYPERGLYCEMIA ALLERGY ALLERGIC CONJUNCTIVITIS HYPERLIPIDEMIA ESSENTIAL HYPERTENSION ASCVD10 (2016)- 11.5% DIEBETIC TYPE 2 EPIDIDYMITIS ALLERGIES ASPIR-81: VOMITING: ALLERGY SURGICAL HISTORY RIGHT EPIDIDYMAL CYST REMOVAL 07/08/[address] ROBIN 08/2016 LEFT INGUINAL HERNIA 02/10/2017 PRIFORMIS MUSCLE INJECTION -RIGHT-[facility] 12/28/2016 BILATIERAL INGUINAL HERNIA REPAIR 02/10/17 REVIEW OF SYSTEMS REVIEWED BY: PROVIDER: . CONSTITUTIONAL: ANY CHANGE IN YOUR MEDICAL CONDITION? NO . CHILLS NO . FEVER NO . INFECTION: DO YOU HAVE NEW INFECTIONS? NO . DO YOU HAVE HISTORY OF MRSA? NO . MUSCULOSKELETAL: ANY NEW PATTERNS OF PAIN OR NUMBNESS? NO . GASTROENTEROLOGY: ANY NEW CHANGE IN BOWEL CONTROL? NO . GENITOURINARY: ANY NEW CHANGE IN BLADDER CONTROL? NO . IS THERE A CHANCE YOU COULD BE ? NO . HEMATOLOGY/LYMPH: DO YOU TAKE ANY BLOOD THINNERS? (FOR EXAMPLE- COUMADIN, PLAVIX, AGGRENOX, PLATEL, PRADAXA, OR XARELTO) NO . WHEN WAS YOUR LAST DOSE? DATE: TIME: . NEUROLOGY: HAVE YOU FALLEN IN THE PAST 6 MONTHS? NO . ANY NEW EXTREMITY NUMBNESS OR WEAKNESS? NO . CARDIOLOGY: DO YOU HAVE A PACEMAKER OR DEFIBRILLATOR? NO . RESPIRATORY: HAVE YOU BEEN SICK IN THE PAST WEEK? NO . FEVER NO . FLU LIKE SYMPTOMS? NO . COUGH NO . INTEGUMENTARY: DO YOU HAVE ANY RASHES OR OPEN SORES? NO . ALLERGIC/IMMUNO: ARE YOU ALLERGIC TO SHELLFISH OR IV DYE? NO . ANY NEW ALLERGIES? NO . PSYCHIATRIC: DO YOU HAVE THOUGHTS OF HURTING YOURSELF OR SOMEONE ELSE? NO . ARE YOU ABUSED, NEGLECTED, OR IN AN UNSAFE ENVIRONMENT? NO . ENDOCRINOLOGY: ARE YOU DIABETIC? YES . OTHER: DO YOU NEED ANY PRESCRIPTIONS? YES . IF YES, PLEASE LIST: ____GABAPENTIN,TIZANTIDINE . ANY NEW PROBLEMS WITH YOUR MEDICATIONS? NO . WHEN DID YOU LAST EAT? ____03/08/17@2200 . WHEN DID YOU LAST DRINK? ____0800 . WHAT DID YOU LAST DRINK? ____WATER WITH MEDS . NAME OF PERSON DRIVING YOU HOME? ____DELBERT KIRBY . DO YOU HAVE ANY OTHER QUESTIONS OR CONCERNS NO . VITAL SIGNS WT 191 LBS, HT 66 IN, BMI 30.82 INDEX, BP 143/94 MM HG, HR 55 /MIN, RR 18 /MIN, TEMP 98.0 F, OXYGEN SAT % 96%, NA INITIALS SC 10:27, REVIEWED BY: NAS. ASSESSMENTS SACROILIITIS, NOT ELSEWHERE CLASSIFIED - M46.1 (PRIMARY) PROCEDURES PN SI PRE PROCEDURE DIAGNOSIS SACROILIITIS, SACROILIAC JOINT DYSFUNCTION POST PROCEDURE DIAGNOSIS SACROILIITIS, SACROILIAC JOINT DYSFUNCTION PROCEDURE RIGHT SACROILIAC JOINT BLOCK SURGEON DR. KIARA MAYER TIRE REPAIRER NONE ANESTHESIA LOCAL PRE PROCEDURE NOTE PATIENT WITH HISTORY OF CHRONIC LOW BACK PAIN. I EVALUATED THE PATIENT AND REVIEWED THE CHART. I WENT OVER THE RISKS, ALTERNATIVES, AND BENEFITS ASSOCIATED WITH THIS PROCEDURE. THE PATIENT WOULD LIKE TO PROCEED AND GAVE CONSENT TO PERFORM THE PROCEDURE. THE PATIENT DENIES UNEXPLAINABLE WEIGHT LOSS, FEVER, CHILLS, OR NEW CHANGES IN URINARY OR BOWEL CONTROL DESCRIPTION OF PROCEDURE THE PATIENT WAS BROUGHT TO THE PROCEDURE ROOM AND PLACED IN THE PRONE POSITION. THE LUMBOSACRAL AREA WAS CLEANED WITH CHLORAPREP SOLUTION AND DRAPED ASEPTICALLY. THE PROCEDURE WAS DONE UNDER STERILE CONDITIONS. I CHECKED LATERALITY AND THE LEVEL WHERE THE PROCEDURE WAS GOING TO BE PERFORMED WITH THE PATIENT AND THE SUPPORTING STAFF AT THE MOMENT OF THE TIME OUT IN THE PROCEDURE ROOM. UNDER FLUOROSCOPIC GUIDANCE, TARGET POINT WAS SELECTED AT THE LOWER BORDER OF THE RIGHT SACROILIAC JOINT. TARGET POINT WAS SELECTED AFTER MEDIAL ROTATION AND TILT OF THE MAGNIFIER OF THE C-ARM. LIDOCAINE WAS USED TO NUMB THE SKIN AND SUBCUTANEOUS TISSUE BELOW IT. A SPINAL NEEDLE, 22-GAUGE, WAS ADVANCED UNDER FLUOROSCOPIC GUIDANCE AND FOLLOWING PATIENT FEEDBACK UNTIL THE TARGET AREA WAS TOUCHED. THE POSITION OF THE NEEDLE WAS VERIFIED WITH AP AND LATERAL VIEWS. AFTER PROPER POSITION OF THE NEEDLE WAS ACHIEVED, ISOVUE M DYE 30%, 0.25 ML, WAS INJECTED SHOWING SPREAD OF THE DYE. THEN, A SOLUTION OF 20 MG OF KENALOG WAS INJECTED IN RIGHT JOINT WITH 3 ML OF BUPIVACAINE 0.125%. THERE WAS NO EVIDENCE OF BLOOD, PARESTHESIA OR CEREBROSPINAL FLUID DURING THE PROCEDURE. THE PATIENT WAS SENT TO THE RECOVERY ROOM. THE PATIENT WAS MOVING THE EXTREMITIES AND DOING WELL. THERE WAS NO COMPLICATION DURING THE PROCEDURE. FLUOROSCOPY TIME WAS 15 SECONDS POST PROCEDURE NOTE THE PATIENT WILL BE SEEN IN A FOLLOW UP IN THE NEXT FEW WEEKS. INSTRUCTIONS WERE GIVEN, QUESTIONS WERE ANSWERED, AND THE PATIENT EXPRESSED UNDERSTANDING AND AGREED WITH THE PLAN. I, MOISÉS PATE, DOCUMENTED THE ABOVE INFORMATION ACTING A SCRIBE FOR DR. MAYER. I HAVE REVIEWED THE ABOVE DOCUMENT, WRITTEN BY MOISÉS PATE SCRIBE AND I VERIFY THAT IT IS [facility] DIAGNOST[facility]AG[facility] FLUORO GUIDANCE (PAIN)[id number] PROCEDURE CODES 15985 INJECT SACROILIAC JOINT 6045F RADXPS IN END [id number] PXD DISPOSITION & COMMUNICATION FOLLOW UP 3 WEEKS ELECTRONICALLY SIGNED BY KIARA MAYER MD ON 03/09/2017 AT 04:58 PM EDT DISCLAIMER : THIS IS A VISIT SUMMARY EXTRACTED FROM THE [employer] CHART. IT IS NOT A COPY OF THE [employer] PROGRESS NOTE. MTDD
== END ==
LOC: M PAIN 10:45
PROVIDERS: ATTEND Anesthesiology
DX: G89.29 Other chronic pain (principal); M46.1 Sacroiliitis, not elsewhere classified; M53.88 Other specified dorsopathies, sacral and sacrococcygeal region; E78.5 Hyperlipidemia, unspecified; F17.210 Nicotine dependence, cigarettes, uncomplicated; I15.2 Hypertension secondary to endocrine disorders; F43.21 Adjustment disorder with depressed mood; E11.9 Type 2 diabetes mellitus without complications; Z88.6 Allergy status to analgesic agent; Z79.84 Long term (current) use of oral hypoglycemic drugs; Z79.899 Other long term (current) drug therapy
CPT/HCPCS: 27096; J3301; Q9967

== ENCOUNTER → 2017-03-23 | Outpatient (CLI) | payer OTHER ==
[~2017-03-23] MED LIST changes: -BUPIVACAINE HCL 0.25% 30 ML VIAL As Ordered ONE; -ISOVUE-M 300 61% 15ML VIAL (Q9967) As Ordered ONE; -LIDOCAINE 1% SDV INJ 30 ML VIAL As Ordered ONE; -TRIAMCINOLONE ACETONIDE SUSP 40 MG/ML VIAL (J3301) As Ordered ONE; -diazePAM 5 MG TAB As Ordered ONE; -oxyCODONE 5MG TAB As Ordered ONE
--- NOTE | 2017-04-11 01:38 | ECWPNPC ---
PATIENT NAME: ALLYN PERERA : 1960 GENDER: MALE VISIT DATE: 03/23/2017 DISCHARGE DATE: 03/23/17 1545 VISIT LOCKED DATE TIME: PHYSICIAN: ALFA CARRASCO RESOURCE: ALFA CARRASCO REASON FOR APPOINTMENT 1. BACK POST PROC HISTORY OF PRESENT ILLNESS HISTORY OF PRESENT ILLNESS: HERE FOR POST PROCEDURE F/U.HAD RIGHT SIJ ON 03-09-17.REPORTS SIGNIFICANT IMPROVEMENT IN PAIN POST PROCEDURE.RATING PAIN VAS 1/10 SINCE PROCEDURE.TAKING GABAPENTIN 600MG TID AND TIZANIDINE 4MG AT HS.FINDS MEDICATION EFFECTIVE.DENIES SIDE EFFECTS. PAIN THE PATIENT DESCRIBES THE PAIN... FALL RISK SCREENING: SCREENING :NO FALLS IN THE PAST YEAR CURRENT MEDICATIONS TAKING TIZANIDINE HCL 4 MG TABLET 1 TABLET NEEDED ORALLY DAILY FOR SEVERE MUSCLE SPASM TAKING AMLODIPINE BESYLATE 10 MG TABLET 1 TABLET ORALLY ONCE A DAY, NOTES: 0800 TAKING TIZANIDINE HCL 4 MG TABLET 1 TABLET NEEDED ORALLY NEEDED FOR SPASMS AND PAIN BEFORE BEDTIME MAY REPEAT IN 4 HRS MDD2 TAKING GABAPENTIN 600 MG TABLET 1 ORALLY THREE TIMES A DAY TAKING BUPROPION HCL ER (SR) 150 MG TABLET EXTENDED RELEASE 12 HOUR 1 TABLET ORALLY TWICE A DAY TAKING ZYRTEC ALLERGY 10 MG TABLET 1 TABLET ORALLY ONCE A DAY NEEDED TAKING ATORVASTATIN CALCIUM 80 MG TABLET 1 TABLET ORALLY ONCE A DAY TAKING BLOOD GLUCOSE TEST STRIP - STRIP 1 STRIP IN VITRO DX:E11.65 TWICE DAILY TAKING BLOOD GLUCOSE METER - KIT 1 METER DX:E11.65 TWICE DAILY TAKING BD LANCET ULTRAFINE 33G - MISCELLANEOUS 1 LANCET INTRADERMALLY TWICE DAILY DX:E11.65 TAKING ALCOHOL PREP PAD 70 % PAD 1 TOPICALLY TWICE DAILY DX:E11.65 TAKING METFORMIN HCL 1000 MG TABLET 1 TABLET WITH MEALS ORALLY TWICE A DAY TAKING METOPROLOL TARTRATE 100 MG TABLET 1 TABLET WITH FOOD ORALLY TWICE A DAY TAKING MELOXICAM 15 MG TABLET 1 TABLET ORALLY TAKE DAILY FOR 5 DAYS, OFF FOR 2 TAKING LISINOPRIL 20 MG TABLET 1 TABLET ORALLY TWICE A DAY TAKING KETOROLAC TROMETHAMINE 10 MG TABLET 1 TABLET WITH FOOD OR MILK NEEDED ORALLY EVERY 6 HRS NOT-TAKING TIZANIDINE HCL 4 MG TABLET 1 TABLET NEEDED ORALLY Q 12H PRN NOT-TAKING SOMA 350 MG TABLET 1 TABLET NEEDED ORALLY Q8H PRN FOR SEVERE POST PROCEDURE PAIN MDD3 MEDICATION LIST REVIEWED AND RECONCILED WITH THE PATIENT PAST MEDICAL HISTORY HTN SHORT'S PALSY JOINT PAIN UNSPECIFIED ESSENTIAL HYPERTENSION PAIN IN JOINT, SHOULDER REGION NONALLOPATHIC LESION OF THORACIC REGION, NOT ELSEWHERE CLASSIFIED NONDEPENDENT TOBACCO USE DISORDER SMOKING MIGRAINE WITHOUT AURA, WITH INTRACTABLE MIGRAINE, SO STATED, WITHOUT MENTION OF STATUS MIGRAINOSUS TRANSAMINITIS FEMORAL HERNIA ( SCHEDULE FOR SURGERY ON 02/10) HYPERGLYCEMIA ALLERGY ALLERGIC CONJUNCTIVITIS HYPERLIPIDEMIA ESSENTIAL HYPERTENSION ASCVD10 (2016)- 11.5% DIEBETIC TYPE 2 EPIDIDYMITIS ALLERGIES ASPIR-81: VOMITING: ALLERGY SOCIAL HISTORY GENERAL: TOBACCO USE ARE YOU A:CURRENT SMOKER HOW MANY CIGARETTES A DAY DO YOU SMOKE?5 OR LESS HOW SOON AFTER YOU WAKE UP DO YOU SMOKE YOUR FIRST CIGARETTE?AFTER 60 MIN HOW OFTEN DO YOU SMOKE CIGARETTES?EVERY DAY PATIENT COUNSELED ON THE DANGERS OF TOBACCO USE AND URGED TO QUIT:02/06/2017 ARE YOU INTERESTED IN QUITTING?THINKING ABOUT QUITTING PREVIOUS QUIT ATTEMPTS?NO. COUNSELED THE PATIENT ON SMOKING CESSATION, EDUCATION [id number]/21/2017 SMOKING CESSATION INFORMATION GIVEN12/28/2016 BMI CARE GOAL FOLLOW-UP ABOVE NORMAL BMI FOLLOW-UPLIFESTYLE EDUCATION REGARDING DIET ALCOHOL SCREENING DID YOU HAVE A DRINK CONTAINING ALCOHOL IN THE PAST YEAR?NO POINTS0 INTERPRETATIONNEGATIVE RECREATIONAL DRUG USE DRUG USE?NO CAFFEINE CAFFEINE USE?YES SEXUAL HX HAD SEX IN THE LAST 12 MONTHS (VAGINAL, ORAL, OR ANAL)?YES WITHWOMEN ONLY USE PROTECTION?NO HAVE YOU EVER HAD AN STD?NO PREVENTION STRATEGIES DISCUSSED:CONDOMS HIV / HEP-C SCREENING HIV TEST OFFERED TO PATIENT:YES DATE OFFERED:10/06/2016 TEST ACCEPTED:NO REASON:PATIENT DECLINED HEP-C TEST OFFERED TO PATIENT:YES DATE OFFERED:10/06/2016 TEST ACCEPTED:NO REASON:PATIENT DECLINED OCCUPATION: UNEMPLOYED. DIET: REGULAR. EXERCISE: NO REGULAR EXERCISE. MARITAL STATUS: SINGLE. OTHERS AT HOME: GIRLFRIEND. PETS: CAT & DOG. 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 EDUCATION LEVEL OF EDUCATION:NOT FINISHED COLLEGE LEARNING BARRIERS / SPECIAL NEEDS CHANGE FROM LAST VISIT?YES BARRIERS TO LEARNING?NO HEARING IMPAIRED?NO VISION IMPAIRED?YES :CORRECTIVE LENSES COGNITIVELY IMPAIRED?NO READINESS TO LEARN?YES LEARNING PREFERENCES?NO LEARNING CAPABILITIES PRESENT?YES EMOTIONAL BARRIERS?NO SPECIAL DEVICES?NO UNIT LEADER NEEDED?NO NEW PATIENT PAIN DIARY TODAY'S VISIT NOTES, FROM 0-10, WHAT LEVEL IS YOUR PAIN TODAY? 0. PAIN CLINIC PFS, CLERGY, PUBLIC HEALTH REFERRALS PFS REFERRAL NEEDED?NO CLERGY REFERRAL NEEDED?NO PUBLIC HEALTH REFERRAL NEEDED?NO HAS THE PATIENT BEEN EDUCATED REGARDING HIS/HER PLAN OF CARE?YES HAS THE PATIENT BEEN EDUCATED REGARDING PAIN, THE RISK FOR PAIN, THE IMPORTANCE OF EFFECTIVE PAIN MANAGEMENT, AND THE PAIN ASSESSMENT PROCESS?YES REVIEW OF SYSTEMS REVIEWED BY: PROVIDER: ALFA JIMENEZ . CONSTITUTIONAL: ANY CHANGE IN YOUR MEDICAL CONDITION? NO . CHILLS NO . FEVER NO . INFECTION: DO YOU HAVE NEW INFECTIONS? NO . DO YOU HAVE HISTORY OF MRSA? NO . MUSCULOSKELETAL: ANY NEW PATTERNS OF PAIN OR NUMBNESS? NO . GASTROENTEROLOGY: ANY NEW CHANGE IN BOWEL CONTROL? NO . GENITOURINARY: ANY NEW CHANGE IN BLADDER CONTROL? NO . IS THERE A CHANCE YOU COULD BE ? NO . HEMATOLOGY/LYMPH: DO YOU TAKE ANY BLOOD THINNERS? (FOR EXAMPLE- COUMADIN, PLAVIX, AGGRENOX, PLATEL, PRADAXA, OR XARELTO) NO . WHEN WAS YOUR LAST DOSE? DATE: TIME: . NEUROLOGY: HAVE YOU FALLEN IN THE PAST 6 MONTHS? YES . ANY NEW EXTREMITY NUMBNESS OR WEAKNESS? NO . CARDIOLOGY: DO YOU HAVE A PACEMAKER OR DEFIBRILLATOR? NO . RESPIRATORY: HAVE YOU BEEN SICK IN THE PAST WEEK? NO . FEVER NO . FLU LIKE SYMPTOMS? NO . COUGH NO . INTEGUMENTARY: DO YOU HAVE ANY RASHES OR OPEN SORES? NO . ALLERGIC/IMMUNO: ARE YOU ALLERGIC TO SHELLFISH OR IV DYE? NO . ANY NEW ALLERGIES? NO . PSYCHIATRIC: DO YOU HAVE THOUGHTS OF HURTING YOURSELF OR SOMEONE ELSE? NO . ARE YOU ABUSED, NEGLECTED, OR IN AN UNSAFE ENVIRONMENT? NO . ENDOCRINOLOGY: ARE YOU DIABETIC? YES . OTHER: DO YOU NEED ANY PRESCRIPTIONS? YES . IF YES, PLEASE LIST: GABAPENTIN . ANY NEW PROBLEMS WITH YOUR MEDICATIONS? NO . WHEN DID YOU LAST EAT? ____ . WHEN DID YOU LAST DRINK? ____ . WHAT DID YOU LAST DRINK? ____ . NAME OF PERSON DRIVING YOU HOME? ____ . DO YOU HAVE ANY OTHER QUESTIONS OR CONCERNS NO . VITAL SIGNS WT 189 LBS, HT 66 IN, BMI 30.50 INDEX, BP 141/89 MM HG, HR 63 /MIN, RR 18 /MIN, TEMP 97.9 F, OXYGEN SAT % 92%, NA INITIALS AW 1458, REVIEWED BY: MARLENI. EXAMINATION GENERAL EXAMINATION: LUNGS:LUNG SOUNDS ARE CLEAR. HEART:HEART RATE REGULAR. MUSCULOSKELETAL:*, MUSCLE STRENGTH TESTING 5/5 BILATERAL LOWER EXTREMITIES.SPECIFIC POINT TENDERNESS OVER RIGHT SIJ.REPORTING NUMBNESS TO LIGHT TOUCH RIGHT LATERAL THIGH.. DIAGNOSTIC:MRI L/S SPINE 07-06-16-REVIEWED.. ASSESSMENTS PIRIFORMIS MUSCLE PAIN - M79.1 (PRIMARY) LUMBAR SPONDYLOSIS - M47.816 SACROILIAC JOINT PAIN - M53.3 TREATMENT PIRIFORMIS MUSCLE PAIN REFILL TIZANIDINE HCL TABLET, 4 MG, 1 TAB, ORALLY, BEFORE BEDTIME, 30 DAY(S), 30, REFILLS 5 REFILL GABAPENTIN TABLET, 600 MG, 1, ORALLY, THREE TIMES A DAY, 30 DAY(S), 90, REFILLS 5 PROCEDURE CODES FA211 ESTABILISHED PATIENT [facility] CHARGE DISPOSITION & COMMUNICATION FOLLOW UP 2 MONTHS ELECTRONICALLY SIGNED BY BARBARA HUFF ON 04/10/2017 AT 08:06 PM EDT DISCLAIMER : THIS IS A VISIT SUMMARY EXTRACTED FROM THE [email or web address] CHART. IT IS NOT A COPY OF THE [email or web address] PROGRESS NOTE. DARLIN
== END ==
LOC: M PAIN 14:45
PROVIDERS: ATTEND Nurse Practitioner Family
DX: G89.29 Other chronic pain (principal); M47.816 Spondylosis without myelopathy or radiculopathy, lumbar region; M53.3 Sacrococcygeal disorders, not elsewhere classified; M79.1 Myalgia; E78.5 Hyperlipidemia, unspecified; F17.210 Nicotine dependence, cigarettes, uncomplicated; G43.909 Migraine, unspecified, not intractable, without status migrainosus; I10 Essential (primary) hypertension; F43.21 Adjustment disorder with depressed mood; E11.9 Type 2 diabetes mellitus without complications; J30.89 Other allergic rhinitis; Z88.6 Allergy status to analgesic agent; Z79.84 Long term (current) use of oral hypoglycemic drugs; Z79.899 Other long term (current) drug therapy

== ENCOUNTER → 2017-05-05 | Outpatient (CLI) | payer OTHER ==
--- NOTE | 2017-05-05 16:53 | REP ---
Clinical: Inconclusive PPD test. Technique: PA and lateral. Comparison: 01/09/2017 Findings: Mediastinum and cardiac silhouette are within normal limits. Lung cancino demonstrate chronic-appearing interstitial changes without acute consolidation, effusion, or pneumothorax. Skeletal structures are intact. Impression: Chronic stable changes. No acute cardiopulmonary process or focal consolidation appreciated. Signed by Dinesh Sanchez MD 05/05/2017 04:44 P
== END ==
LOC: M RAD 16:20
PROVIDERS: ATTEND Family Medicine
DX: R76.11 Nonspecific reaction to tuberculin skin test without active tuberculosis (principal)

== ENCOUNTER → 2017-05-05 | Outpatient (REF) | payer OTHER | LOC: M SFHCPLAZ 12:51 | PROVIDERS: ATTEND Family Medicine | DX: R76.11 Nonspecific reaction to tuberculin skin test without active tuberculosis (principal) ==

== ENCOUNTER → 2017-05-05 | Outpatient (REF) | payer OTHER | LOC: M SFHCPLAZ 12:03 | PROVIDERS: ATTEND Family Medicine | DX: R19.7 Diarrhea, unspecified (principal) ==

== ENCOUNTER → 2017-05-19 | Outpatient (REF) | payer OTHER ==
[2017-05-19 17:00] LABS: ANION GAP 9 MEQ/L (8-16); BLOOD UREA NITROGEN 21 MG/DL (7-18); CALCIUM LEVEL 8.9 MG/DL (8.5-10.1); CARBON DIOXIDE LEVEL 25 MEQ/L (21-32); CHLORIDE LEVEL 109 MEQ/L (98-107); CREATININE FOR GFR 0.79 MG/DL (0.70-1.30); GLOMERULAR FILTRATION RATE > 60.0 (>56); GLUCOSE, FASTING 148 MG/DL (70-105); POTASSIUM SERUM 3.8 MEQ/L (3.5-5.1); SODIUM LEVEL 143 MEQ/L (136-145)
== END ==
LOC: M SFHCPLAZ 12:31
PROVIDERS: ATTEND Family Medicine
DX: R04.2 Hemoptysis (principal)

== ENCOUNTER → 2017-05-23 | Outpatient (CLI) | payer OTHER | LOC: M PAIN 15:00 | PROVIDERS: ATTEND Nurse Practitioner Family | DX: M79.1 Myalgia (principal); M47.816 Spondylosis without myelopathy or radiculopathy, lumbar region; M53.3 Sacrococcygeal disorders, not elsewhere classified; G89.29 Other chronic pain; I10 Essential (primary) hypertension; E11.9 Type 2 diabetes mellitus without complications; F17.210 Nicotine dependence, cigarettes, uncomplicated; Z79.84 Long term (current) use of oral hypoglycemic drugs; Z79.899 Other long term (current) drug therapy; Z88.8 Allergy status to other drugs, medicaments and biological substances ==

== ENCOUNTER → 2017-05-23 | Outpatient (CLI) | payer OTHER ==
[~2017-05-23] MED LIST changes: +ISOVUE-370 76% 100ML VIAL (Q9967) As Ordered ONE
--- NOTE | 2017-05-24 09:24 | REP ---
CONTRAST ENHANCED CHEST CT: CLINICAL HISTORY: Dyspnea and hemoptysis. TECHNIQUE: Axial contrast-enhanced images from the thoracic inlet to the upper abdomen using 100 mL of Isovue 370 intravenous contrast material with coronal and sagittal reformations. COMPARISON: 08/31/2015 FINDINGS: The bilateral lung cancino are well-aerated and clear. No acute consolidation, significant nodule or mass lesion is appreciated. No pleural effusion/reaction or pneumothorax. The tracheobronchial tree is patent. Mediastinum demonstrates normal thoracic aorta and heart/pericardium. Mild atherosclerotic changes of the aorta and coronary arteries is identified. A few mediastinal and subcarinal lymph nodes are identified which are nonspecific and within normal limits measuring up to approximately 11 mm in short axis diameter and appear overall improved when compared to prior examination. Surrounding musculoskeletal structures are intact. Limited upper abdomen demonstrates normal bilateral adrenal glands. IMPRESSION: 1. No acute mediastinal or pleuroparenchymal process is appreciated. Signed by Dinesh Sanchez MD 05/26/2017 08:46 A
== END ==
LOC: M RAD 11:08
PROVIDERS: ATTEND Family Medicine
DX: R04.2 Hemoptysis (principal); R06.00 Dyspnea, unspecified; F17.210 Nicotine dependence, cigarettes, uncomplicated
CPT/HCPCS: 71260; Q9967

== ENCOUNTER → 2017-05-26 | Outpatient (CLI) | payer OTHER ==
[~2017-05-26] MED LIST changes: -ISOVUE-370 76% 100ML VIAL (Q9967) As Ordered ONE
--- NOTE | 2017-05-26 17:03 | REP ---
LIMITED PELVIC ULTRASOUND: HISTORY: Right inguinal hernia. A fat containing right inguinal hernia is present. This moves from deep to superficial and medial with Valsalva maneuver. There is no intestine in the hernia. IMPRESSION: There is a fat containing right inguinal hernia. Unreviewed
== END ==
LOC: M RAD 12:58
PROVIDERS: ATTEND Surgery
DX: K40.30 Unilateral inguinal hernia, with obstruction, without gangrene, not specified as recurrent (principal)

== ENCOUNTER → 2017-06-02 | Outpatient (CLI) | payer OTHER ==
--- NOTE | 2017-06-02 16:46 | REP ---
Bilateral hips: Right hip AP and frog-leg views: Mineralization and joint space are unremarkable. There are no calcifications. There is no femoral head deformity. There is no fracture or dislocation. Impression: Negative right hip. Left hip AP and frog-leg views: Mineralization and joint space are normal. There is no fracture or dislocation. There are no calcifications or foreign bodies. Impression: Negative left hip. If there is ongoing clinical concern consider MRI. Signed by Gabriele Diaz MD 06/02/2017 04:37 P
== END ==
LOC: M RAD 15:31
PROVIDERS: ATTEND Family Medicine
DX: R10.32 Left lower quadrant pain (principal)

== ENCOUNTER → 2017-06-06 | Outpatient (CLI) | payer OTHER ==
[2017-06-06 18:09] LABS: BASO % 0.3 % (0.0-1.0); EOS # 0.2 10^3/uL (0.0-0.50); EOS % 1.5 % (0.0-3.0); IMMATURE GRANULOCYTE % 0.2 % (0-0); LYMPH # 2.6 10^3/uL (1.5-4.5); LYMPH % 26.8 % (24.0-44.0); MEAN CORPUSCULAR HEMOGLOBIN 33.2 pg (27.0-33.0); MEAN CORPUSCULAR HGB CONC 35.7 g/dl (32.0-36.5); MEAN CORPUSCULAR VOLUME 93.1 fl (80.0-96.0); MONO % 9.9 % (0.0-5.0); NEUTROPHILS % 61.3 % (36.0-66.0); WHITE BLOOD COUNT 9.9 10^3/uL (4.0-10.0)
[2017-06-06 19:08] LABS: IMMATURE PLATELET FRACTION % 19.1 % (0.0-10.9); PLATELET COUNT, AUTOMATED 80 10^3/uL (150-450); PLT CLUMPS? POS FLAG; POS COUNT POS FLAG
== END ==
LOC: M LAB 04:33
PROVIDERS: ATTEND Student in an Organized Health Care Education/Training Program
DX: K40.90 Unilateral inguinal hernia, without obstruction or gangrene, not specified as recurrent (principal)

== ENCOUNTER → 2017-06-20 | Outpatient (CLI) | payer OTHER ==
[~2017-06-20] MED LIST changes: -ACET30TAB PO; -AMLO10TA2 PO; -ATOR1TAB19 PO; -ATOR80TA59 PO; -BUPR150T5 PO; -CIPR-249 PO; -CYCL10TA PO; -GABA-283 PO; -HYDR25TAB PO; +LIDOCAINE 1% SDV INJ 30 ML VIAL As Ordered; -LIPI80TA PO; -LISI10TA4 PO; -MELO15TA4 PO; -METF10004 PO; -METO37.5 PO; -METO50TA7 PO; -MOBI4TAB PO; -NEUR300C PO; -PAME50CA PO; -TIZA2CAP3 PO; -TIZA4CAP3 PO; -TRAM50TA2 PO; -ZYRT10CA PO; +diazePAM 5 MG TAB As Ordered; +methylPREDNISolone SUSP 40 MG/ML (DEPO-medrol) VIAL (J1030) As Ordered; +oxyCODONE 5MG TAB As Ordered
== END ==
LOC: M PAIN 08:45
DX: G89.29 Other chronic pain (principal); M51.16 Intervertebral disc disorders with radiculopathy, lumbar region; M51.17 Intervertebral disc disorders with radiculopathy, lumbosacral region; I10 Essential (primary) hypertension; F17.210 Nicotine dependence, cigarettes, uncomplicated; G43.909 Migraine, unspecified, not intractable, without status migrainosus; E78.5 Hyperlipidemia, unspecified; E11.9 Type 2 diabetes mellitus without complications; Z88.6 Allergy status to analgesic agent; Z79.84 Long term (current) use of oral hypoglycemic drugs; Z79.899 Other long term (current) drug therapy
CPT/HCPCS: J1030

== ENCOUNTER 2017-06-30 10:54 | Day surgery (SDC) | payer OTHER ==
[2017-06-30 11:43] LABS: BEDSIDE GLUCOSE 146 MG/DL (70-105)
[2017-06-30] MEDS: LR 1,000 ML IV ×2 (11:51)
[2017-06-30] MEDS ORDERED: KETOROLAC 30 MG/ML VIAL (J1885) As Ordered ×2 (14:04)
[2017-06-30] MEDS: KETOROLAC 30 MG/ML VIAL (J1885) IV ×2 (14:10)
[2017-06-30] MEDS ORDERED: ROCURONIUM BROMIDE 50 MG/5 ML VIAL As Ordered ×2 (15:04)
[2017-06-30] MEDS ORDERED: LIDOCAINE 2% INJ 100 MG/5 ML SDV (FOR ANES.) As Ordered ×2 (15:04)
[2017-06-30] MEDS ORDERED: fentaNYL 250 MCG/5 ML INJECTION (J3010) As Ordered ×2 (15:04)
[2017-06-30] MEDS ORDERED: MIDAZOLAM INJ 2 MG/2 ML VIAL (J2250) As Ordered ×2 (15:04)
[2017-06-30] MEDS ORDERED: PROPOFOL 200 MG/20 ML VIAL As Ordered ×2 (15:04)
[2017-06-30] MEDS ORDERED: ONDANSETRON 4MG/2ML VIAL (J2405) As Ordered ×2 (15:42)
[2017-06-30] MEDS ORDERED: NEOSTIGMINE 10 MG/10 ML VIAL (J2710) As Ordered ×2 (15:42)
[2017-06-30] MEDS ORDERED: GLYCOPYRROLATE INJ 0.2 MG/ML 2 ML VIAL As Ordered ×4 (15:42→15:58)
[2017-06-30] MEDS: LIDOCAINE W/EPINEPHRINE 1% 20ML VIAL As Ordered ×2 (16:04)
[2017-06-30] MEDS ORDERED: LR 1,000 ML IV ×2 (16:30)
[2017-06-30] MEDS: fentaNYL 100 MCG/2 ML INJECTION (J3010) IV ×8 (16:38→16:57)
[2017-06-30] MEDS: ONDANSETRON 4MG/2ML VIAL (J2405) IV ×2 (16:45)
[2017-06-30] MEDS: NORCO, ANEXSIA 5/325MG TABLET (HYDROcodone/ACETAMINOPHEN) PO ×2 (16:47)
[2017-06-30] MEDS: MORPHINE 10 MG/ML 1ML VIAL IV ×8 (17:04→17:32)
== END 2017-06-30 18:34 | disposition home or self-care (01) ==
LOC: M SDC 10:54
DX: K40.90 Unilateral inguinal hernia, without obstruction or gangrene, not specified as recurrent (principal); I10 Essential (primary) hypertension; E11.9 Type 2 diabetes mellitus without complications; F17.210 Nicotine dependence, cigarettes, uncomplicated; F41.9 Anxiety disorder, unspecified; F32.9 Major depressive disorder, single episode, unspecified; E78.5 Hyperlipidemia, unspecified; M17.0 Bilateral primary osteoarthritis of knee; M19.121 Post-traumatic osteoarthritis, right elbow; M19.122 Post-traumatic osteoarthritis, left elbow; Z88.6 Allergy status to analgesic agent; Z79.899 Other long term (current) drug therapy; Z79.84 Long term (current) use of oral hypoglycemic drugs
CPT/HCPCS: 49650

== ENCOUNTER → 2017-07-14 | Outpatient (CLI) | payer OTHER | LOC: M RAD 10:54 | DX: M47.22 Other spondylosis with radiculopathy, cervical region (principal); M50.322 Other cervical disc degeneration at C5-C6 level | CPT/HCPCS: 72141 ==

== ENCOUNTER → 2017-07-20 | Outpatient (CLI) | payer OTHER | LOC: M PAIN 11:00 | DX: G89.29 Other chronic pain (principal); M79.1 Myalgia; M54.2 Cervicalgia; M47.812 Spondylosis without myelopathy or radiculopathy, cervical region; M47.816 Spondylosis without myelopathy or radiculopathy, lumbar region; I10 Essential (primary) hypertension; E78.5 Hyperlipidemia, unspecified; E11.9 Type 2 diabetes mellitus without complications; Z79.84 Long term (current) use of oral hypoglycemic drugs; Z79.899 Other long term (current) drug therapy; F17.210 Nicotine dependence, cigarettes, uncomplicated; Z88.6 Allergy status to analgesic agent | CPT/HCPCS: G0463 ==

== ENCOUNTER → 2017-07-20 | Outpatient (REF) | payer OTHER ==
[2017-07-20 21:09] LABS: BASO % 0.5 % (0.0-1.0); EOS # 0.3 10^3/uL (0.0-0.50); EOS % 2.8 % (0.0-3.0); HEMATOCRIT 48.5 % (42.0-52.0); HEMOGLOBIN 16.7 g/dl (14.0-18.0); IMMATURE GRANULOCYTE % 0.3 % (0-0); LYMPH # 2.6 10^3/uL (1.5-4.5); LYMPH % 29.8 % (24.0-44.0); MEAN CORPUSCULAR HGB CONC 34.4 g/dl (32.0-36.5); MEAN CORPUSCULAR VOLUME 95.8 fl (80.0-96.0); MONO # 1.1 10^3/uL (0.0-0.8); MONO % 11.9 % (0.0-5.0); NEUTROPHILS # 4.8 10^3/uL (1.8-7.7); NEUTROPHILS % 54.7 % (36.0-66.0); PLATELET COUNT, AUTOMATED 153 10^3/uL (150-450); RED BLOOD COUNT 5.06 10^6/uL (4.30-6.10); RED CELL DISTRIBUTION WIDTH 12.9 % (11.5-14.5); WHITE BLOOD COUNT 8.8 10^3/uL (4.0-10.0)
[2017-07-20 21:58] LABS: C REACTIVE PROTEIN QUANTITATIV < 0.30 MG/DL (0.00-0.30); RHEUMATOID FACTOR QUANT 76.7 IU/ML (0-15.0)
[2017-07-20 21:58] LABS: URIC ACID 6.7 MG/DL (3.5-7.2)
[2017-07-20 22:10] LABS: ERYTHROCYTE SEDIMENTATION RATE 10 mm/hr (0-20)
[2017-07-25 00:07] LABS: ANTI DOUBLE STRAND-DNA AB 35 IU/mL (0-9); ANTINUCLEAR ANTIBODIES DIRECT Positive (Negative); Lyme Disease IgG/IgM Antibodie <0.91 ISR (0.00-0.90); Lyme Disease IgM Ab Quantitati <0.80 index (0.00-0.79); RNP ANTIBODIES 0.2 AI (0.0-0.9); SJOGREN'S ANTI SS-A <0.2 AI (0.0-0.9); SJOGREN'S ANTI SS-B <0.2 AI (0.0-0.9); SMITH ANTIBODIES <0.2 AI (0.0-0.9)
== END ==
LOC: M LABDRAW1 14:44
DX: M18.11 Unilateral primary osteoarthritis of first carpometacarpal joint, right hand (principal)

== ENCOUNTER → 2017-07-28 | Outpatient (CLI) | payer OTHER ==
[~2017-07-28] MED LIST changes: +BUPIVACAINE HCL 0.25% 10 ML VIAL As Ordered; +BUPIVACAINE HCL 0.25% 30 ML VIAL As Ordered; -LIDOCAINE 1% SDV INJ 30 ML VIAL As Ordered; +TRIAMCINOLONE ACETONIDE SUSP 40 MG/ML VIAL (J3301) As Ordered; -methylPREDNISolone SUSP 40 MG/ML (DEPO-medrol) VIAL (J1030) As Ordered
== END ==
LOC: M PAIN 10:00
DX: G89.29 Other chronic pain (principal); M54.2 Cervicalgia; M79.1 Myalgia; I10 Essential (primary) hypertension; E11.9 Type 2 diabetes mellitus without complications; G43.909 Migraine, unspecified, not intractable, without status migrainosus; E78.5 Hyperlipidemia, unspecified; Z72.0 Tobacco use; Z79.84 Long term (current) use of oral hypoglycemic drugs; Z79.899 Other long term (current) drug therapy; Z88.6 Allergy status to analgesic agent
CPT/HCPCS: J3301

== ENCOUNTER → 2017-07-28 | Outpatient (CLI) | payer OTHER | LOC: M PAIN 10:15 | DX: G89.29 Other chronic pain (principal); M54.2 Cervicalgia; M79.1 Myalgia; I10 Essential (primary) hypertension; E11.9 Type 2 diabetes mellitus without complications; F17.210 Nicotine dependence, cigarettes, uncomplicated; G43.909 Migraine, unspecified, not intractable, without status migrainosus; E78.5 Hyperlipidemia, unspecified; Z79.899 Other long term (current) drug therapy; Z88.6 Allergy status to analgesic agent | CPT/HCPCS: G0463 ==

== ENCOUNTER → 2017-08-10 | Outpatient (CLI) | payer OTHER | LOC: M PAIN 13:15 | DX: M79.1 Myalgia (principal); M54.2 Cervicalgia; M47.812 Spondylosis without myelopathy or radiculopathy, cervical region; M47.816 Spondylosis without myelopathy or radiculopathy, lumbar region; I10 Essential (primary) hypertension; E78.5 Hyperlipidemia, unspecified; E11.9 Type 2 diabetes mellitus without complications; F17.210 Nicotine dependence, cigarettes, uncomplicated; Z79.84 Long term (current) use of oral hypoglycemic drugs; Z79.899 Other long term (current) drug therapy; Z88.8 Allergy status to other drugs, medicaments and biological substances | CPT/HCPCS: G0463 ==

== ENCOUNTER → 2017-08-28 | Outpatient (CLI) | payer OTHER | LOC: M RAD 08:10 | DX: I67.81 Acute cerebrovascular insufficiency (principal); G31.9 Degenerative disease of nervous system, unspecified | CPT/HCPCS: 70551 ==

== ENCOUNTER 2017-09-02 10:04 | Emergency (ER) | payer OTHER | END 2017-09-02 10:44 | disposition home or self-care (01) | LOC: M ED 10:04 | DX: S29.012A Strain of muscle and tendon of back wall of thorax, initial encounter (principal); X50.0XXA Overexertion from strenuous movement or load, initial encounter; Y92.89 Other specified places as the place of occurrence of the external cause; I10 Essential (primary) hypertension; E78.9 Disorder of lipoprotein metabolism, unspecified; Z86.69 Personal history of other diseases of the nervous system and sense organs; Z79.899 Other long term (current) drug therapy; Z88.8 Allergy status to other drugs, medicaments and biological substances; F17.210 Nicotine dependence, cigarettes, uncomplicated | CPT/HCPCS: 99283 ==

== ENCOUNTER → 2017-09-19 | Outpatient (CLI) | payer OTHER | LOC: M PAIN 10:45 | DX: G89.29 Other chronic pain (principal); M79.1 Myalgia; M54.2 Cervicalgia; M47.812 Spondylosis without myelopathy or radiculopathy, cervical region; M47.816 Spondylosis without myelopathy or radiculopathy, lumbar region; I10 Essential (primary) hypertension; F17.210 Nicotine dependence, cigarettes, uncomplicated; E78.5 Hyperlipidemia, unspecified; E11.9 Type 2 diabetes mellitus without complications; G43.919 Migraine, unspecified, intractable, without status migrainosus; Z88.6 Allergy status to analgesic agent; Z79.84 Long term (current) use of oral hypoglycemic drugs; Z79.899 Other long term (current) drug therapy | CPT/HCPCS: G0463 ==

== ENCOUNTER → 2017-10-05 | Outpatient (CLI) | payer OTHER | LOC: M PAIN 13:45 | DX: G89.29 Other chronic pain (principal); M79.1 Myalgia; I10 Essential (primary) hypertension; G43.019 Migraine without aura, intractable, without status migrainosus; E78.5 Hyperlipidemia, unspecified; E11.9 Type 2 diabetes mellitus without complications; F17.210 Nicotine dependence, cigarettes, uncomplicated; Z79.84 Long term (current) use of oral hypoglycemic drugs; Z79.899 Other long term (current) drug therapy; Z88.6 Allergy status to analgesic agent | CPT/HCPCS: J3301 ==

== ENCOUNTER 2017-10-13 14:10 | Day surgery (SDC) | payer OTHER ==
[2017-10-13] MEDS ORDERED: NS 1,000 ML IV (15:15)
== END 2017-10-13 17:25 | disposition home or self-care (01) ==
LOC: M OPP 14:10
DX: Z12.11 Encounter for screening for malignant neoplasm of colon (principal); Z86.010 Personal history of colon polyps; D12.5 Benign neoplasm of sigmoid colon; K57.30 Diverticulosis of large intestine without perforation or abscess without bleeding; K64.8 Other hemorrhoids; I10 Essential (primary) hypertension; E78.5 Hyperlipidemia, unspecified; E11.9 Type 2 diabetes mellitus without complications; M19.90 Unspecified osteoarthritis, unspecified site; M54.89 Other dorsalgia; F41.9 Anxiety disorder, unspecified; F32.9 Major depressive disorder, single episode, unspecified; R51 Headache; I63.9 Cerebral infarction, unspecified; J44.9 Chronic obstructive pulmonary disease, unspecified; F17.210 Nicotine dependence, cigarettes, uncomplicated; Z88.8 Allergy status to other drugs, medicaments and biological substances; Z79.899 Other long term (current) drug therapy; Z79.84 Long term (current) use of oral hypoglycemic drugs; Z80.8 Family history of malignant neoplasm of other organs or systems
CPT/HCPCS: 45385

== ENCOUNTER → 2017-11-16 | Outpatient (CLI) | payer OTHER | LOC: M PAIN 13:30 | DX: G57.01 Lesion of sciatic nerve, right lower limb (principal); M79.1 Myalgia; I10 Essential (primary) hypertension; F17.200 Nicotine dependence, unspecified, uncomplicated; G43.909 Migraine, unspecified, not intractable, without status migrainosus; E78.5 Hyperlipidemia, unspecified; E77.9 Disorder of glycoprotein metabolism, unspecified; Z79.899 Other long term (current) drug therapy; Z88.6 Allergy status to analgesic agent | CPT/HCPCS: G0463 ==

== ENCOUNTER → 2017-11-27 | Outpatient (CLI) | payer OTHER ==
[~2017-11-27] MED LIST changes: -BUPIVACAINE HCL 0.25% 10 ML VIAL As Ordered; +ISOVUE-M 300 61% 15ML VIAL (Q9967) As Ordered; +LIDOCAINE 1% SDV INJ 30 ML VIAL As Ordered
== END ==
LOC: M PAIN 10:00
DX: G89.29 Other chronic pain (principal); M79.1 Myalgia; G57.02 Lesion of sciatic nerve, left lower limb; I10 Essential (primary) hypertension; E11.9 Type 2 diabetes mellitus without complications; F17.210 Nicotine dependence, cigarettes, uncomplicated; N45.1 Epididymitis; G43.919 Migraine, unspecified, intractable, without status migrainosus; Z79.84 Long term (current) use of oral hypoglycemic drugs; Z79.899 Other long term (current) drug therapy; Z88.6 Allergy status to analgesic agent
CPT/HCPCS: J3301

== ENCOUNTER → 2017-12-11 | Outpatient (REF) | payer OTHER | LOC: M SFHCPLAZ 16:00 | DX: Z53.8 Procedure and treatment not carried out for other reasons (principal); E11.21 Type 2 diabetes mellitus with diabetic nephropathy; Z13.220 Encounter for screening for lipoid disorders ==

== ENCOUNTER → 2017-12-14 | Outpatient (REF) | payer OTHER ==
[2017-12-14 14:00] LABS: ANION GAP 9 MEQ/L (8-16); BLOOD UREA NITROGEN 17 MG/DL (7-18); CALCIUM LEVEL 8.3 MG/DL (8.5-10.1); CARBON DIOXIDE LEVEL 25 MEQ/L (21-32); CHLORIDE LEVEL 108 MEQ/L (98-107); CHOLESTEROL LEVEL 82 MG/DL (<200); CHOLESTEROL RISK RATIO 3.153 (<5); CREATININE FOR GFR 0.67 MG/DL (0.70-1.30); GLOMERULAR FILTRATION RATE > 60.0 (>56); GLUCOSE, FASTING 145 MG/DL (70-100); HDL CHOLESTEROL 26 MG/DL (>40); LDL CHOLESTEROL 17.6 MG/DL (<100); NON-HDL-C 56 MG/DL; POTASSIUM SERUM 3.6 MEQ/L (3.5-5.1); SODIUM LEVEL 142 MEQ/L (136-145); TRIGLYCERIDES LEVEL 192 MG/DL (<150)
[2017-12-14 14:05] LABS: ESTIMATED AVERAGE GLUCOSE 171 MG/DL (60-110); HEMOGLOBIN A1c 7.6 %
== END ==
LOC: M SFHCPLAZ 13:29
DX: E11.21 Type 2 diabetes mellitus with diabetic nephropathy (principal); Z13.220 Encounter for screening for lipoid disorders

== ENCOUNTER → 2017-12-18 | Outpatient (CLI) | payer OTHER | LOC: M PAIN 15:15 | DX: M53.3 Sacrococcygeal disorders, not elsewhere classified (principal); I10 Essential (primary) hypertension; G43.909 Migraine, unspecified, not intractable, without status migrainosus; E78.5 Hyperlipidemia, unspecified; E11.9 Type 2 diabetes mellitus without complications; F17.210 Nicotine dependence, cigarettes, uncomplicated; Z79.84 Long term (current) use of oral hypoglycemic drugs; Z79.899 Other long term (current) drug therapy; Z88.6 Allergy status to analgesic agent | CPT/HCPCS: G0463 ==

== ENCOUNTER → 2018-01-01 | Outpatient (CLI) | payer OTHER | LOC: M PAIN 13:45 | DX: G89.29 Other chronic pain (principal); M46.1 Sacroiliitis, not elsewhere classified; I10 Essential (primary) hypertension; F17.210 Nicotine dependence, cigarettes, uncomplicated; E78.5 Hyperlipidemia, unspecified; G43.919 Migraine, unspecified, intractable, without status migrainosus; E11.9 Type 2 diabetes mellitus without complications; Z79.84 Long term (current) use of oral hypoglycemic drugs; Z79.899 Other long term (current) drug therapy; Z88.6 Allergy status to analgesic agent | CPT/HCPCS: J3301 ==

== ENCOUNTER → 2018-01-15 | Outpatient (CLI) | payer OTHER | LOC: M CARPUL 10:56 | DX: R06.02 Shortness of breath (principal) | CPT/HCPCS: 94060 ==

== ENCOUNTER → 2018-01-18 | Outpatient (CLI) | payer OTHER | LOC: M PAIN 14:45 | DX: M53.3 Sacrococcygeal disorders, not elsewhere classified (principal); G57.01 Lesion of sciatic nerve, right lower limb; I10 Essential (primary) hypertension; G43.919 Migraine, unspecified, intractable, without status migrainosus; E78.5 Hyperlipidemia, unspecified; E11.9 Type 2 diabetes mellitus without complications; N45.1 Epididymitis; Z87.891 Personal history of nicotine dependence; Z79.84 Long term (current) use of oral hypoglycemic drugs; Z79.899 Other long term (current) drug therapy; Z88.6 Allergy status to analgesic agent | CPT/HCPCS: G0463 ==

== ENCOUNTER → 2018-03-01 | Outpatient (CLI) | payer OTHER | LOC: M PAIN 14:15 | DX: M53.3 Sacrococcygeal disorders, not elsewhere classified (principal); G57.01 Lesion of sciatic nerve, right lower limb; G89.29 Other chronic pain; I10 Essential (primary) hypertension; E11.9 Type 2 diabetes mellitus without complications; G43.909 Migraine, unspecified, not intractable, without status migrainosus; E78.5 Hyperlipidemia, unspecified; J30.9 Allergic rhinitis, unspecified; Z79.84 Long term (current) use of oral hypoglycemic drugs; Z79.899 Other long term (current) drug therapy; Z88.6 Allergy status to analgesic agent; Z87.891 Personal history of nicotine dependence | CPT/HCPCS: G0463 ==

== ENCOUNTER → 2018-04-24 | Outpatient (CLI) | payer OTHER | LOC: M PAIN 14:00 | DX: G89.29 Other chronic pain (principal); M53.3 Sacrococcygeal disorders, not elsewhere classified; G57.01 Lesion of sciatic nerve, right lower limb; I11.9 Hypertensive heart disease without heart failure; G43.909 Migraine, unspecified, not intractable, without status migrainosus; E78.5 Hyperlipidemia, unspecified; Z79.84 Long term (current) use of oral hypoglycemic drugs; Z79.899 Other long term (current) drug therapy; Z88.6 Allergy status to analgesic agent; Z86.69 Personal history of other diseases of the nervous system and sense organs; Z87.891 Personal history of nicotine dependence | CPT/HCPCS: G0463 ==

== ENCOUNTER → 2018-04-30 | Outpatient (CLI) | payer OTHER | LOC: M PAIN 10:45 | DX: G89.29 Other chronic pain (principal); M46.1 Sacroiliitis, not elsewhere classified; I10 Essential (primary) hypertension; E11.9 Type 2 diabetes mellitus without complications; G43.909 Migraine, unspecified, not intractable, without status migrainosus; J30.9 Allergic rhinitis, unspecified; E78.5 Hyperlipidemia, unspecified; Z79.84 Long term (current) use of oral hypoglycemic drugs; Z79.899 Other long term (current) drug therapy; Z88.6 Allergy status to analgesic agent; Z86.69 Personal history of other diseases of the nervous system and sense organs; Z87.891 Personal history of nicotine dependence | CPT/HCPCS: J3301 ==

== ENCOUNTER → 2018-05-29 | Outpatient (CLI) | payer OTHER ==
[~2018-05-29] MED LIST changes: +ACET30TAB PO; +AMLO10TA4 PO; +ATOR1TAB19 PO; +ATOR80TA59 PO; -BUPIVACAINE HCL 0.25% 30 ML VIAL As Ordered; +BUPR150T5 PO; +CIPR-249 PO; +CYCL10TA PO; +GABA-845 PO; +HYDR25TAB PO; -ISOVUE-M 300 61% 15ML VIAL (Q9967) As Ordered; -LIDOCAINE 1% SDV INJ 30 ML VIAL As Ordered; +LIPI80TA PO; +LISI10TA4 PO; +MELO15TA28 PO; +METF10004 PO; +METO37.5 PO; +METO50TA7 PO; +MOBI4TAB PO; +NEUR300C PO; +NORCOTAB PO; +PAME50CA PO; +ROBA500T PO; +TIZA2CAP PO; +TIZA4CAP PO; +TRAM50TA2 PO; -TRIAMCINOLONE ACETONIDE SUSP 40 MG/ML VIAL (J3301) As Ordered; +ZYRT10CA PO; -diazePAM 5 MG TAB As Ordered; -oxyCODONE 5MG TAB As Ordered
--- NOTE | 2018-06-21 00:46 | ECWPNPC ---
PATIENT NAME: ALLYN PERERA : 1960 GENDER: MALE VISIT DATE: 05/29/2018 DISCHARGE DATE: 05/29/18 1509 VISIT LOCKED DATE TIME: PHYSICIAN: ALFA CARRASCO RESOURCE: ALFA CARRASCO REASON FOR APPOINTMENT 1. POST PROC HISTORY OF PRESENT ILLNESS DEPRESSION SCREENING: PHQ-2 IN LAST TWO WEEKS HAVE YOU BEEN BOTHERED BY LITTLE INTEREST OR PLEASURE IN DOING THINGSNO FEELING DOWN, DEPRESSED, OR HOPELESSNO HISTORY OF PRESENT ILLNESS: HERE FOR POST PROCEDURE F/U.HAD RIGHT SIJ ON 04-30-18.REPORTING SIGNIFICANT IMPROVEMENT IN PAIN POST PROCEDURE THAT CONTINUES TODAY.RATING PAIN VAS IN LOW BACK /VAS.CHIEF AREA OF PAIN IS RIGHT OCCIPITAL REGION.ALSO COMPLAINING OF RIGHT EAR AND JAW PAIN THAT IS SO SEVERE IT IS AWAKENING HIM AT NIGHT.RATING PAIN VAS 3/10 RIGHT OCCIPITAL REGION. PAIN THE PATIENT DESCRIBES THE PAIN... FALL RISK SCREENING: SCREENING :NO FALLS IN THE PAST YEAR CURRENT MEDICATIONS TAKING FLONASE 50 MCG/ACT SUSPENSION 1 SPRAY IN EACH NOSTRIL NASALLY ONCE A DAY TAKING BLOOD GLUCOSE TEST STRIP - STRIP 1 STRIP IN VITRO DX:E11.65 TWICE DAILY TAKING BLOOD GLUCOSE METER - KIT 1 METER DX:E11.65 TWICE DAILY TAKING BD LANCET ULTRAFINE 33G - MISCELLANEOUS 1 LANCET INTRADERMALLY TWICE DAILY DX:E11.65 TAKING ZYRTEC ALLERGY 10 MG TABLET 1 TABLET ORALLY ONCE A DAY NEEDED TAKING ALCOHOL PREP PAD 70 % PAD 1 TOPICALLY TWICE DAILY DX:E11.65 TAKING LISINOPRIL 20 MG TABLET 1 TABLET ORALLY ONCE DAILY TAKING METFORMIN HCL 1000 MG TABLET 1 TABLET WITH MEALS ORALLY TWICE A DAY TAKING LANSOPRAZOLE 30 MG CAPSULE DELAYED RELEASE 1 CAPSULE ORALLY ONCE A DAY TAKING METOPROLOL TARTRATE 100 MG TABLET 1 TABLET WITH FOOD ORALLY TWICE A DAY TAKING AMLODIPINE BESYLATE 10 MG TABLET 1 TABLET ORALLY ONCE A DAY TAKING BUPROPION HCL 100 MG TABLET 1 TABLET ORALLY TWICE A DAY TAKING TIZANIDINE HCL 4 MG TABLET 1 TABLET NEEDED ORALLY NEEDED FOR SPASMS AND PAIN BEFORE BEDTIME TAKING MELOXICAM 15 MG TABLET 1 TABLET ORALLY DAILY TAKING METHOCARBAMOL 500 MG TABLET 1.5 TABLETS ORALLY Q12H PRN TAKING GABAPENTIN 600 MG TABLET 1 ORALLY THREE TIMES A DAY TAKING ATORVASTATIN CALCIUM 80 MG TABLET TAKE ONE TABLET BY MOUTH EVERY DAY NOT-TAKING PAXIL 20 MG TABLET 1 TABLET IN THE MORNING ORALLY ONCE A DAY NOT-TAKING SOMA 350 MG TABLET 1 TABLET NEEDED ORALLY Q8H PRN MDD2 NOT-TAKING CETIRIZINE HCL 10 MG TABLET 1 TABLET ORALLY ONCE A DAY NOT-TAKING NEXIUM 20 MG PACKET 1 PACKET MIXED WITH 15 ML OF WATER 1 HOUR BEFORE A MEAL ORALLY ONCE A DAY NOT-TAKING RHINOCORT ALLERGY 32 MCG/ACT SUSPENSION 2 PUFFS IN EACH NOSTRIL NASALLY ONCE A DAY NOT-TAKING KETOCONAZOLE 2% CREAM APPLY TO AFFECTED AREA OF PENIS TWO TIMES A DAY FOR 14 DAYS NOT-TAKING MELATONIN 5 MG TABLET 1 TABLET AT BEDTIME NEEDED WITH FOOD ORALLY ONCE A DAY NOT-TAKING STEGLATRO 5 MG TABLET 1 TABLET ORALLY ONCE A DAY NOT-TAKING CITALOPRAM HYDROBROMIDE 20 MG TABLET 1 TABLET ORALLY ONCE A DAY NOT-TAKING CHANTIX 0.5 MG TABLET 1 TABLET ORALLY ONCE A DAY MEDICATION LIST REVIEWED AND RECONCILED WITH THE PATIENT PAST MEDICAL HISTORY HTN SHORT'S PALSY UNSPECIFIED ESSENTIAL HYPERTENSION NONDEPENDENT TOBACCO USE DISORDER SMOKING MIGRAINE WITHOUT AURA, WITH INTRACTABLE MIGRAINE, SO STATED, WITHOUT MENTION OF STATUS MIGRAINOSUS ALLERGIC CONJUNCTIVITIS HYPERLIPIDEMIA ESSENTIAL HYPERTENSION ASCVD10 (2016)- 11.5% DIEBETIC TYPE 2 EPIDIDYMITIS ALLERGIES ASPIR-81: VOMITING: SIDE EFFECTS SURGICAL HISTORY RIGHT EPIDIDYMAL CYST REMOVAL 07/08/[address] ROBIN 08/2016 LEFT INGUINAL HERNIA 02/10/2017 PRIFORMIS MUSCLE INJECTION -RIGHT-[facility] 12/28/2016 BILATIERAL INGUINAL HERNIA REPAIR 02/10/17 RIGHT HERNIA REPAIR 06/2017 SOCIAL HISTORY GENERAL: TOBACCO USE ARE YOU A:FORMER SMOKER HOW LONG HAS IT BEEN SINCE YOU LAST SMOKED?3-6 MONTHS SMOKING CESSATION INFORMATION GIVEN01/01/2018 BMI CARE GOAL FOLLOW-UP ABOVE NORMAL [facility] REGARDING DIET ALCOHOL SCREENING DID YOU HAVE A DRINK CONTAINING ALCOHOL IN THE PAST YEAR?NO POINTS0 INTERPRETATIONNEGATIVE RECREATIONAL DRUG USE DRUG USE?NO CAFFEINE CAFFEINE USE?YES SEXUAL HX HAD SEX IN THE LAST 12 MONTHS (VAGINAL, ORAL, OR ANAL)?YES WITHWOMEN ONLY PREVENTION STRATEGIES DISCUSSED:CONDOMS USE PROTECTION?NO HAVE YOU EVER HAD AN STD?NO HIV / HEP-C SCREENING HIV TEST OFFERED TO PATIENT:YES DATE OFFERED:10/06/2016 TEST ACCEPTED:NO HEP-C TEST OFFERED TO PATIENT:YES DATE OFFERED:10/06/2016 REASON:PATIENT DECLINED TEST ACCEPTED:NO REASON:PATIENT DECLINED [employer] [id number]. EDUCATION LEVEL OF EDUCATION:NOT FINISHED COLLEGE LEARNING BARRIERS / SPECIAL NEEDS CHANGE FROM LAST VISIT?YES BARRIERS TO LEARNING?NO HEARING IMPAIRED?NO VISION IMPAIRED?YES COGNITIVELY IMPAIRED?NO :CORRECTIVE LENSES READINESS TO LEARN?YES LEARNING PREFERENCES?NO LEARNING CAPABILITIES PRESENT?YES EMOTIONAL BARRIERS?NO SPECIAL DEVICES?NO JUTE BAG SEWER NEEDED?NO DOMESTIC VIOLENCE DO YOU FEEL SAFE IN YOUR ENVIRONMENT?YES OCCUPATION: [employer], [employer]. DIET: REGULAR. EXERCISE: NO REGULAR EXERCISE. MARITAL STATUS: SINGLE. OTHERS AT HOME: GIRLFRIEND. NEW PATIENT PAIN DIARY PATIENT DESCRIBES PAIN :ACHING, BURNING, SHARP, SORE FROM 0-10, WHAT LEVEL IS YOUR PAIN TODAY?2.5 PAIN CLINIC PFS, CLERGY, PUBLIC HEALTH REFERRALS PFS REFERRAL NEEDED?NO CLERGY REFERRAL NEEDED?NO PUBLIC HEALTH REFERRAL NEEDED?NO WAS THE PROVIDER NOTIFIED OF ANY PERTINENT INFO?YES N/A HAS THE PATIENT BEEN EDUCATED REGARDING HIS/HER PLAN OF CARE?YES HAS THE PATIENT BEEN EDUCATED REGARDING PAIN, THE RISK FOR PAIN, THE IMPORTANCE OF EFFECTIVE PAIN MANAGEMENT, AND THE PAIN ASSESSMENT PROCESS?YES ADVANCE DIRECTIVE ADVANCE DIRECTIVE DISCUSSED WITH PATIENT:YES YES, PT STATES HCP IS TANNER PERERA - DAUGHTER [phone] PT STATES HE IS CUTTING DOWN ON SMOKING ALOT DOWN TO 2 DAILY11/27/17 1045 REVIEWED WITH PT. ADLREVIEWED WITH PT 03/01/18 1450 LASREVIEWED WITH PT 04/30/18 1106 BV. HOSPITALIZATION/MAJOR DIAGNOSTIC PROCEDURE NO HOSPITALIZATION HISTORY. REVIEW OF SYSTEMS REVIEWED BY: PROVIDER: ALFA JIMENEZ . CONSTITUTIONAL: ANY CHANGE IN YOUR MEDICAL CONDITION? NO . CHILLS NO . FEVER NO . INFECTION: DO YOU HAVE NEW INFECTIONS? NO . DO YOU HAVE HISTORY OF MRSA? NO . MUSCULOSKELETAL: ANY NEW PATTERNS OF PAIN OR NUMBNESS? NO . GASTROENTEROLOGY: ANY NEW CHANGE IN BOWEL CONTROL? NO . GENITOURINARY: ANY NEW CHANGE IN BLADDER CONTROL? NO . IS THERE A CHANCE YOU COULD BE ? NO . HEMATOLOGY/LYMPH: DO YOU TAKE ANY BLOOD THINNERS? (FOR EXAMPLE- COUMADIN, PLAVIX, AGGRENOX, PLATEL, PRADAXA, OR XARELTO) NO . WHEN WAS YOUR LAST DOSE? DATE: TIME: . NEUROLOGY: HAVE YOU FALLEN IN THE PAST 6 MONTHS? NO . ANY NEW EXTREMITY NUMBNESS OR WEAKNESS? NO . CARDIOLOGY: DO YOU HAVE A PACEMAKER OR DEFIBRILLATOR? NO . RESPIRATORY: HAVE YOU BEEN SICK IN THE PAST WEEK? NO . FEVER NO . FLU LIKE SYMPTOMS? NO . COUGH NO . INTEGUMENTARY: DO YOU HAVE ANY RASHES OR OPEN SORES? NO . ALLERGIC/IMMUNO: ARE YOU ALLERGIC TO SHELLFISH OR IV DYE? NO . ANY NEW ALLERGIES? NO . PSYCHIATRIC: DO YOU HAVE THOUGHTS OF HURTING YOURSELF OR SOMEONE ELSE? NO . ARE YOU ABUSED, NEGLECTED, OR IN AN UNSAFE ENVIRONMENT? NO . ENDOCRINOLOGY: ARE YOU DIABETIC? YES . OTHER: DO YOU NEED ANY PRESCRIPTIONS? NO . IF YES, PLEASE LIST: ____ . ANY NEW PROBLEMS WITH YOUR MEDICATIONS? NO . WHEN DID YOU LAST EAT? ____ . WHEN DID YOU LAST DRINK? ____ . WHAT DID YOU LAST DRINK? ____ . NAME OF PERSON DRIVING YOU HOME? ____ . DO YOU HAVE ANY OTHER QUESTIONS OR CONCERNS NO . VITAL SIGNS WT 186.4 LBS, HT 66 IN, BMI 30.08 INDEX, BP 175/93 MM HG, HR 66 /MIN, RR 18 /MIN, TEMP 97.3 F, OXYGEN SAT % 93%, NA INITIALS AW 1439, REVIEWED BY: EM. EXAMINATION GENERAL EXAMINATION: GENERAL APPEARANCE:AWAKE,ALERT ,PLEAASANT . PSYCHAFFECT NORMAL . LUNGS:LUNG SCHNEIDER ARE CLEAR TO AUSCULTATION BILATERALLY. GOOD MOVEMENT OF AIR . HEART:S1, S2 IN A REGULAR RATE AND RHYTHM. NO SIGNIFICANT MURMURS, RUBS OR GALLOPS NOTED . CERVICALTRIGGER POINTS: CERVICAL AND TRAPEZIUS BILAT..PAIN IS AGGREVATED WITH ROJM NECK. ASSESSMENTS CERVICALGIA - M54.2 (PRIMARY) MYALGIA OF MUSCLE OF NECK - M79.18 TREATMENT CERVICALGIA CONTINUE TIZANIDINE HCL TABLET, 4 MG, 1 TABLET NEEDED, ORALLY NEEDED FOR SPASMS AND PAIN, BEFORE BEDTIME CONTINUE MELOXICAM TABLET, 15 MG, 1 TABLET, ORALLY, DAILY CONTINUE METHOCARBAMOL TABLET, 500 MG, 1.5 TABLETS, ORALLY, Q12H PRN CONTINUE GABAPENTIN TABLET, 600 MG, 1, ORALLY, THREE TIMES A DAY NOTES: RIGHT CERVICAL/OCCIPITAL TPI. PROCEDURE CODES FA211 ESTABILISHED PATIENT [facility] CHARGE DISPOSITION & COMMUNICATION FOLLOW UP POST (REASON: RIGHT CERVICAL/OCCIPITAL TPI) ELECTRONICALLY SIGNED BY BARBARA HEARD ON 06/20/2018 AT 03:10 PM EST DISCLAIMER : THIS IS A VISIT SUMMARY EXTRACTED FROM THE [employer] CHART. IT IS NOT A COPY OF THE [employer] PROGRESS NOTE. DARLIN
== END ==
LOC: M PAIN 14:45
PROVIDERS: ATTEND Nurse Practitioner Family
DX: M54.2 Cervicalgia (principal); M79.18 Myalgia, other site; I10 Essential (primary) hypertension; G43.019 Migraine without aura, intractable, without status migrainosus; H10.45 Other chronic allergic conjunctivitis; E78.5 Hyperlipidemia, unspecified; E11.9 Type 2 diabetes mellitus without complications; N45.1 Epididymitis; Z87.891 Personal history of nicotine dependence; Z79.84 Long term (current) use of oral hypoglycemic drugs; Z79.899 Other long term (current) drug therapy

== ENCOUNTER → 2018-06-28 | Outpatient (CLI) | payer OTHER ==
[~2018-06-28] MED LIST changes: -AMLO10TA4 PO; +AMLO10TA5 PO; +BUPIVACAINE HCL 0.25% 10 ML VIAL As Ordered ONE; +BUPIVACAINE HCL 0.25% 30 ML VIAL As Ordered ONE; +TRIAMCINOLONE ACETONIDE SUSP 40 MG/ML VIAL (J3301) As Ordered ONE; +diazePAM 5 MG TAB As Ordered ONE; +oxyCODONE 5MG TAB As Ordered ONE
--- NOTE | 2018-07-17 01:52 | ECWPNPC ---
PATIENT NAME: ALLYN PERERA : 1960 GENDER: MALE VISIT DATE: 06/28/2018 DISCHARGE DATE: 06/28/18 1110 VISIT LOCKED DATE TIME: PHYSICIAN: KIARA MAYER MD RESOURCE: KIARA MAYER MD REASON FOR APPOINTMENT 1. TPI HISTORY OF PRESENT ILLNESS HISTORY OF PRESENT ILLNESS: PAIN THE PATIENT DESCRIBES THE PAIN... FALL RISK SCREENING: SCREENING :NO FALLS IN THE PAST YEAR CURRENT MEDICATIONS TAKING FLONASE 50 MCG/ACT SUSPENSION 1 SPRAY IN EACH NOSTRIL NASALLY ONCE A DAY, NOTES: NONE LATELY TAKING BLOOD GLUCOSE TEST STRIP - STRIP 1 STRIP IN VITRO DX:E11.65 TWICE DAILY TAKING BLOOD GLUCOSE METER - KIT 1 METER DX:E11.65 TWICE DAILY TAKING BD LANCET ULTRAFINE 33G - MISCELLANEOUS 1 LANCET INTRADERMALLY TWICE DAILY DX:E11.65 TAKING ZYRTEC ALLERGY 10 MG TABLET 1 TABLET ORALLY ONCE A DAY NEEDED, NOTES: 06/27/18 TAKING ALCOHOL PREP PAD 70 % PAD 1 TOPICALLY TWICE DAILY DX:E11.65 TAKING LISINOPRIL 20 MG TABLET 1 TABLET ORALLY ONCE DAILY, NOTES: 06/27/18 TAKING METFORMIN HCL 1000 MG TABLET 1 TABLET WITH MEALS ORALLY TWICE A DAY, NOTES: 06/27/18 TAKING METOPROLOL TARTRATE 100 MG TABLET 1 TABLET WITH FOOD ORALLY TWICE A DAY, NOTES: 06/28/18 AM TAKING AMLODIPINE BESYLATE 10 MG TABLET 1 TABLET ORALLY ONCE A DAY, NOTES: 06/28/18 AM TAKING BUPROPION HCL 100 MG TABLET 1 TABLET ORALLY TWICE A DAY, NOTES: 06/27/18 TAKING TIZANIDINE HCL 4 MG TABLET 1 TABLET NEEDED ORALLY NEEDED FOR SPASMS AND PAIN BEFORE BEDTIME, NOTES: 06/27/18 TAKING MELOXICAM 15 MG TABLET 1 TABLET ORALLY DAILY, NOTES: 06/25/18 TAKING METHOCARBAMOL 500 MG TABLET 1.5 TABLETS ORALLY Q12H PRN, NOTES: 06/27/18 TAKING GABAPENTIN 600 MG TABLET 1 ORALLY THREE TIMES A DAY, NOTES: 06/27/18 TAKING ATORVASTATIN CALCIUM 80 MG TABLET 1 TABLET ORALLY ONCE A DAY, NOTES: 06/27/18 NOT-TAKING PAXIL 20 MG TABLET 1 TABLET IN THE MORNING ORALLY ONCE A DAY NOT-TAKING SOMA 350 MG TABLET 1 TABLET NEEDED ORALLY Q8H PRN MDD2 NOT-TAKING CETIRIZINE HCL 10 MG TABLET 1 TABLET ORALLY ONCE A DAY NOT-TAKING NEXIUM 20 MG PACKET 1 PACKET MIXED WITH 15 ML OF WATER 1 HOUR BEFORE A MEAL ORALLY ONCE A DAY NOT-TAKING RHINOCORT ALLERGY 32 MCG/ACT SUSPENSION 2 PUFFS IN EACH NOSTRIL NASALLY ONCE A DAY NOT-TAKING KETOCONAZOLE 2% CREAM APPLY TO AFFECTED AREA OF PENIS TWO TIMES A DAY FOR 14 DAYS NOT-TAKING MELATONIN 5 MG TABLET 1 TABLET AT BEDTIME NEEDED WITH FOOD ORALLY ONCE A DAY NOT-TAKING STEGLATRO 5 MG TABLET 1 TABLET ORALLY ONCE A DAY NOT-TAKING CITALOPRAM HYDROBROMIDE 20 MG TABLET 1 TABLET ORALLY ONCE A DAY NOT-TAKING CHANTIX 0.5 MG TABLET 1 TABLET ORALLY ONCE A DAY DISCONTINUED LANSOPRAZOLE 30 MG CAPSULE DELAYED RELEASE 1 CAPSULE ORALLY ONCE A DAY DISCONTINUED AMLODIPINE BESYLATE 10 MG TABLET TAKE ONE TABLET BY MOUTH EVERY DAY MEDICATION LIST REVIEWED AND RECONCILED WITH THE PATIENT PAST MEDICAL HISTORY HTN SHORT'S PALSY UNSPECIFIED ESSENTIAL HYPERTENSION NONDEPENDENT TOBACCO USE DISORDER SMOKING MIGRAINE WITHOUT AURA, WITH INTRACTABLE MIGRAINE, SO STATED, WITHOUT MENTION OF STATUS MIGRAINOSUS ALLERGIC CONJUNCTIVITIS HYPERLIPIDEMIA ESSENTIAL HYPERTENSION ASCVD10 (2016)- 11.5% DIEBETIC TYPE 2 EPIDIDYMITIS ALLERGIES ASPIR-81: VOMITING: SIDE EFFECTS SURGICAL HISTORY RIGHT EPIDIDYMAL CYST REMOVAL 07/08/[address] ROBIN 08/2016 LEFT INGUINAL HERNIA 02/10/2017 PRIFORMIS MUSCLE INJECTION -RIGHT-[facility] 12/28/2016 BILATIERAL INGUINAL HERNIA REPAIR 02/10/17 RIGHT HERNIA REPAIR 06/2017 FAMILY HISTORY FATHER: , DIAGNOSED WITH HYPERTENSION MOTHER: , DIAGNOSED WITH DIABETES SIBLINGS: ALIVE DAUGHTER(S): ALIVE 1 BROTHER(S) , 2 SISTER(S) . 2DAUGHTER(S) . SOCIAL HISTORY GENERAL: TOBACCO USE ARE YOU A:FORMER SMOKER HOW LONG HAS IT BEEN SINCE YOU LAST SMOKED?3-6 MONTHS SMOKING CESSATION INFORMATION GIVEN01/01/2018 BMI CARE GOAL FOLLOW-UP ABOVE NORMAL BMI FOLLOW-UPLIFESTYLE EDUCATION REGARDING DIET ALCOHOL SCREENING DID YOU HAVE A DRINK CONTAINING ALCOHOL IN THE PAST YEAR?NO POINTS0 INTERPRETATIONNEGATIVE RECREATIONAL DRUG USE DRUG USE?NO CAFFEINE CAFFEINE USE?YES SEXUAL HX HAD SEX IN THE LAST 12 MONTHS (VAGINAL, ORAL, OR ANAL)?YES WITHWOMEN ONLY PREVENTION STRATEGIES DISCUSSED:CONDOMS USE PROTECTION?NO HAVE YOU EVER HAD AN STD?NO HIV / HEP-C SCREENING HIV TEST OFFERED TO PATIENT:YES DATE OFFERED:10/06/2016 TEST ACCEPTED:NO HEP-C TEST OFFERED TO PATIENT:YES DATE OFFERED:10/06/2016 REASON:PATIENT DECLINED TEST ACCEPTED:NO REASON:PATIENT DECLINED [id number]. EDUCATION LEVEL OF EDUCATION:NOT FINISHED COLLEGE LEARNING BARRIERS / SPECIAL NEEDS CHANGE FROM LAST VISIT?YES BARRIERS TO LEARNING?NO HEARING IMPAIRED?NO VISION IMPAIRED?YES COGNITIVELY IMPAIRED?NO :CORRECTIVE LENSES READINESS TO LEARN?YES LEARNING PREFERENCES?NO LEARNING CAPABILITIES PRESENT?YES EMOTIONAL BARRIERS?NO SPECIAL DEVICES?NO EMBEDDED NURSE NEEDED?NO DOMESTIC VIOLENCE DO YOU FEEL SAFE IN YOUR ENVIRONMENT?YES OCCUPATION: [employer], [employer]. DIET: REGULAR. EXERCISE: NO REGULAR EXERCISE. MARITAL STATUS: SINGLE. OTHERS AT HOME: GIRLFRIEND. NEW PATIENT PAIN DIARY PATIENT DESCRIBES PAIN :ACHING, BURNING, SHARP, SORE FROM 0-10, WHAT LEVEL IS YOUR PAIN TODAY?2.5 PAIN CLINIC PFS, CLERGY, PUBLIC HEALTH REFERRALS PFS REFERRAL NEEDED?NO CLERGY REFERRAL NEEDED?NO PUBLIC HEALTH REFERRAL NEEDED?NO WAS THE PROVIDER NOTIFIED OF ANY PERTINENT INFO?YES N/A HAS THE PATIENT BEEN EDUCATED REGARDING HIS/HER PLAN OF CARE?YES HAS THE PATIENT BEEN EDUCATED REGARDING PAIN, THE RISK FOR PAIN, THE IMPORTANCE OF EFFECTIVE PAIN MANAGEMENT, AND THE PAIN ASSESSMENT PROCESS?YES ADVANCE DIRECTIVE ADVANCE DIRECTIVE DISCUSSED WITH PATIENT:YES YES, PT STATES HCP IS TANNER PERERA - DAUGHTER [phone] PT STATES HE IS CUTTING DOWN ON SMOKING ALOT DOWN TO 2 DAILY11/27/17 1045 REVIEWED WITH PT. ADLREVIEWED WITH PT 03/01/18 1450 LASREVIEWED WITH PT 04/30/18 1106 BV. HOSPITALIZATION/MAJOR DIAGNOSTIC PROCEDURE DENIES PAST HOSPITALIZATION REVIEW OF SYSTEMS REVIEWED BY: PROVIDER: . CONSTITUTIONAL: ANY CHANGE IN YOUR MEDICAL CONDITION? NO . CHILLS NO . FEVER NO . INFECTION: DO YOU HAVE NEW INFECTIONS? NO . DO YOU HAVE HISTORY OF MRSA? NO . MUSCULOSKELETAL: ANY NEW PATTERNS OF PAIN OR NUMBNESS? NO . GASTROENTEROLOGY: ANY NEW CHANGE IN BOWEL CONTROL? NO . GENITOURINARY: ANY NEW CHANGE IN BLADDER CONTROL? NO . IS THERE A CHANCE YOU COULD BE ? NO . HEMATOLOGY/LYMPH: DO YOU TAKE ANY BLOOD THINNERS? (FOR EXAMPLE- COUMADIN, PLAVIX, AGGRENOX, PLATEL, PRADAXA, OR XARELTO) NO . WHEN WAS YOUR LAST DOSE? DATE: TIME: . NEUROLOGY: HAVE YOU FALLEN IN THE PAST 6 MONTHS? NO . ANY NEW EXTREMITY NUMBNESS OR WEAKNESS? NO . CARDIOLOGY: DO YOU HAVE A PACEMAKER OR DEFIBRILLATOR? NO . RESPIRATORY: HAVE YOU BEEN SICK IN THE PAST WEEK? NO . FEVER NO . FLU LIKE SYMPTOMS? NO . COUGH NO . INTEGUMENTARY: DO YOU HAVE ANY RASHES OR OPEN SORES? NO . ALLERGIC/IMMUNO: ARE YOU ALLERGIC TO SHELLFISH OR IV DYE? NO . ANY NEW ALLERGIES? NO . PSYCHIATRIC: DO YOU HAVE THOUGHTS OF HURTING YOURSELF OR SOMEONE ELSE? NO . ARE YOU ABUSED, NEGLECTED, OR IN AN UNSAFE ENVIRONMENT? NO . ENDOCRINOLOGY: ARE YOU DIABETIC? YES . OTHER: DO YOU NEED ANY PRESCRIPTIONS? NO . IF YES, PLEASE LIST: ____ . ANY NEW PROBLEMS WITH YOUR MEDICATIONS? NO . WHEN DID YOU LAST EAT? 06/27/181899 . WHEN DID YOU LAST DRINK? 06/27/182199 . WHAT DID YOU LAST DRINK? JIUCE . NAME OF PERSON DRIVING YOU HOME? DELBERT . DO YOU HAVE ANY OTHER QUESTIONS OR CONCERNS NO . VITAL SIGNS WT 190.2 LBS, HT 66 IN, BMI 30.70 INDEX, BP 138/84 MM HG, HR 59 /MIN, RR 17 /MIN, TEMP 96.6 F, OXYGEN SAT % 96%, NA INITIALS SC 09:03, REVIEWED BY: EM. ASSESSMENTS MYALGIA, OTHER SITE - M79.18 (PRIMARY) PROCEDURES PN TRIGGER POINT INJECTION WITH STEROIDS PRE PROCEDURE DIAGNOSIS 1. MYALGIA 2. PAIN AT RIGHT NECK AREA POST PROCEDURE DIAGNOSIS 1. MYALGIA 2. PAIN AT RIGHT NECK AREA PROCEDURE TRIGGER POINT INJECTION AT RIGHT NECK AREA SURGEON DR. KIARA MAYER STITCHER STANDARD MACHINE NONE ANESTHESIA LOCAL PRE PROCEDURE NOTE THE PATIENT HAS A HISTORY OF CHRONIC PAIN AT THE RIGHT NECK AREA. I EVALUATE THE PATIENT AND REVIEWED THE CHART. THERE IS EVIDENCE OF BANDS OF TISSUE WITH RESTRICTION OF MOVEMENT AND PRESENCE OF TRIGGER POINT AT THE AFFECTED AREA. I WENT OVER THE RISKS, ALTERNATIVES, AND BENEFITS ASSOCIATED WITH THIS PROCEDURE. THE PATIENT WOULD LIKE TO PROCEED AND GIVE CONSENT TO PERFORMED THE PROCEDURE. THE PATIENT DENIES UNEXPLAINABLE WEIGHT LOSS, FEVER, CHILLS, OR NEW CHANGES IN URINARY OR BOWEL CONTROL DESCRIPTION OF PROCEDURE THE PATIENT WAS BROUGHT TO THE PROCEDURE ROOM AND PLACED IN THE SITTING POSITION. THE AREA WAS CLEANED WITH ALCOHOL. THE PROCEDURE WAS DONE USING ASEPTIC STERILE TECHNIQUE. I CHECKED LATERALITY AND THE LEVEL WHERE THE PROCEDURE WAS GOING TO BE PERFORMED WITH THE PATIENT AND THE SUPPORTING STAFF AT THE MOMENT OF THE TIME OUT IN THE PROCEDURE ROOM. USING A 25-GAUGE NEEDLE, TRIGGER POINTS WERE INJECTED AT THE RIGHT NECK AREA WITH A TOTAL OF 40 ML OF BUPIVACAINE 0.25% AND KENALOG 40 MG. THERE WAS NO EVIDENCE OF BLOOD, PARESTHESIA OR CEREBROSPINAL FLUID DURING THE PROCEDURE. THE PATIENT WAS SENT TO THE RECOVERY ROOM. THE PATIENT WAS MOVING THE EXTREMITIES AND DOING WELL. THERE WAS NO COMPLICATION DURING THE PROCEDURE POST PROCEDURE NOTE THE PATIENT WILL BE SEEN IN A FOLLOW UP IN THE NEXT FEW WEEKS. INSTRUCTIONS WERE GIVEN, QUESTIONS WERE ANSWERED, AND THE PATIENT EXPRESSED UNDERSTANDING AND AGREES WITH THE PLAN. I, LUPE ALMODOVAR, DOCUMENTED THE ABOVE INFORMATION ACTING A SCRIBE FOR DR. MAYER. I HAVE REVIEWED THE ABOVE DOCUMENT, WRITTEN BY LUPE KATE AND I VERIFY THAT IT IS ACCURATE. PROCEDURE CODES 60582 INJ TRIGGER POINT / [facility] COMMUNICATION FOLLOW UP 3 WEEKS ELECTRONICALLY SIGNED BY KIARA MAYER MD, MD ON 07/16/2018 AT 11:08 AM EST DISCLAIMER : THIS IS A VISIT SUMMARY EXTRACTED FROM THE [employer] CHART. IT IS NOT A COPY OF THE [employer] PROGRESS NOTE. DRALIN
== END ==
LOC: M PAIN 08:30
PROVIDERS: ATTEND Anesthesiology
DX: M79.18 Myalgia, other site (principal); M54.2 Cervicalgia; E11.9 Type 2 diabetes mellitus without complications; I10 Essential (primary) hypertension; G43.909 Migraine, unspecified, not intractable, without status migrainosus; E78.5 Hyperlipidemia, unspecified; Z79.84 Long term (current) use of oral hypoglycemic drugs; Z79.899 Other long term (current) drug therapy; Z88.6 Allergy status to analgesic agent; Z87.891 Personal history of nicotine dependence
CPT/HCPCS: 20552; J3301

== ENCOUNTER → 2018-07-14 | Outpatient (CLI) | payer OTHER ==
[~2018-07-14] MED LIST changes: -BUPIVACAINE HCL 0.25% 10 ML VIAL As Ordered ONE; -BUPIVACAINE HCL 0.25% 30 ML VIAL As Ordered ONE; -TRIAMCINOLONE ACETONIDE SUSP 40 MG/ML VIAL (J3301) As Ordered ONE; -diazePAM 5 MG TAB As Ordered ONE; -oxyCODONE 5MG TAB As Ordered ONE
[2018-07-14 14:55] LABS: HEMOGLOBIN A1c 8.6 %
== END ==
LOC: M WUC 13:02
PROVIDERS: ATTEND Family Medicine
DX: E11.65 Type 2 diabetes mellitus with hyperglycemia (principal)

== ENCOUNTER → 2018-07-16 | Outpatient (CLI) | payer OTHER ==
--- NOTE | 2018-07-28 00:15 | ECWPNPC ---
PATIENT NAME: ALLYN PERERA : 1960 GENDER: MALE VISIT DATE: 07/16/2018 DISCHARGE DATE: 07/16/18 1450 VISIT LOCKED DATE TIME: PHYSICIAN: ALFA CARRASCO RESOURCE: ALFA CARRASCO REASON FOR APPOINTMENT 1. POST TPI- HISTORY OF PRESENT ILLNESS HISTORY OF PRESENT ILLNESS: HERE FOR POST PROCEDURE F/U.HAD RIGHT NECK TPI ON 06-28-17.REPORTING SIGNIFICANT IMPROVEMENT IN PAIN POST PROCEDURE THAT CONTINUES TODAY.RATING PAIN VAS IN NECK 2/10VAS.CHIEF AREA OF PAIN IS LEFT LOW BACK. PAIN THE PATIENT DESCRIBES THE PAIN... THE PATIENT DESCRIBES THE PAIN... FALL RISK SCREENING: SCREENING :NO FALLS IN THE PAST YEAR CURRENT MEDICATIONS TAKING FLONASE 50 MCG/ACT SUSPENSION 1 SPRAY IN EACH NOSTRIL NASALLY ONCE A DAY, NOTES: NONE LATELY TAKING BLOOD GLUCOSE METER - KIT 1 METER DX:E11.65 TWICE DAILY TAKING BD LANCET ULTRAFINE 33G - MISCELLANEOUS 1 LANCET INTRADERMALLY TWICE DAILY DX:E11.65 TAKING ZYRTEC ALLERGY 10 MG TABLET 1 TABLET ORALLY ONCE A DAY NEEDED, NOTES: 06/27/18 TAKING ALCOHOL PREP PAD 70 % PAD 1 TOPICALLY TWICE DAILY DX:E11.65 TAKING METFORMIN HCL 1000 MG TABLET 1 TABLET WITH MEALS ORALLY TWICE A DAY, NOTES: 06/27/18 TAKING METOPROLOL TARTRATE 100 MG TABLET 1 TABLET WITH FOOD ORALLY TWICE A DAY, NOTES: 06/28/18 AM TAKING AMLODIPINE BESYLATE 10 MG TABLET 1 TABLET ORALLY ONCE A DAY, NOTES: 06/28/18 AM TAKING BUPROPION HCL 100 MG TABLET 1 TABLET ORALLY TWICE A DAY, NOTES: 06/27/18 TAKING TIZANIDINE HCL 4 MG TABLET 1 TABLET NEEDED ORALLY NEEDED FOR SPASMS AND PAIN BEFORE BEDTIME, NOTES: 06/27/18 TAKING MELOXICAM 15 MG TABLET 1 TABLET ORALLY DAILY, NOTES: 06/25/18 TAKING METHOCARBAMOL 500 MG TABLET 1.5 TABLETS ORALLY Q12H PRN, NOTES: 06/27/18 TAKING GABAPENTIN 600 MG TABLET 1 ORALLY THREE TIMES A DAY, NOTES: 06/27/18 TAKING ATORVASTATIN CALCIUM 80 MG TABLET 1 TABLET ORALLY ONCE A DAY, NOTES: 06/27/18 TAKING LISINOPRIL 20 MG TABLET 1 TAB ORALLY DAILY TAKING BLOOD GLUCOSE TEST STRIP - STRIP 1 STRIP IN VITRO DX:E11.65 TWICE DAILY TAKING CITALOPRAM HYDROBROMIDE 20 MG TABLET 1 TABLET ORALLY ONCE A DAY NOT-TAKING SOMA 350 MG TABLET 1 TABLET NEEDED ORALLY Q8H PRN MDD2 UNKNOWN PAXIL 20 MG TABLET 1 TABLET IN THE MORNING ORALLY ONCE A DAY UNKNOWN CETIRIZINE HCL 10 MG TABLET 1 TABLET ORALLY ONCE A DAY UNKNOWN NEXIUM 20 MG PACKET 1 PACKET MIXED WITH 15 ML OF WATER 1 HOUR BEFORE A MEAL ORALLY ONCE A DAY UNKNOWN RHINOCORT ALLERGY 32 MCG/ACT SUSPENSION 2 PUFFS IN EACH NOSTRIL NASALLY ONCE A DAY UNKNOWN KETOCONAZOLE 2% CREAM APPLY TO AFFECTED AREA OF PENIS TWO TIMES A DAY FOR 14 DAYS UNKNOWN MELATONIN 5 MG TABLET 1 TABLET AT BEDTIME NEEDED WITH FOOD ORALLY ONCE A DAY UNKNOWN STEGLATRO 5 MG TABLET 1 TABLET ORALLY ONCE A DAY UNKNOWN CHANTIX 0.5 MG TABLET 1 TABLET ORALLY ONCE A DAY MEDICATION LIST REVIEWED AND RECONCILED WITH THE PATIENT PAST MEDICAL HISTORY HTN SHORT'S PALSY UNSPECIFIED ESSENTIAL HYPERTENSION NONDEPENDENT TOBACCO USE DISORDER SMOKING MIGRAINE WITHOUT AURA, WITH INTRACTABLE MIGRAINE, SO STATED, WITHOUT MENTION OF STATUS MIGRAINOSUS ALLERGIC CONJUNCTIVITIS HYPERLIPIDEMIA ESSENTIAL HYPERTENSION ASCVD10 (2016)- 11.5% DIEBETIC TYPE 2 EPIDIDYMITIS ALLERGIES ASPIR-81: VOMITING: SIDE EFFECTS SURGICAL HISTORY RIGHT EPIDIDYMAL CYST REMOVAL 07/08/[address] ROBIN 08/2016 LEFT INGUINAL HERNIA 02/10/2017 PRIFORMIS MUSCLE INJECTION -RIGHT-[facility] 12/28/2016 BILATIERAL INGUINAL HERNIA REPAIR 02/10/17 RIGHT HERNIA REPAIR 06/2017 FAMILY HISTORY FATHER: , DIAGNOSED WITH HYPERTENSION MOTHER: , DIAGNOSED WITH DIABETES SIBLINGS: ALIVE DAUGHTER(S): ALIVE 1 BROTHER(S) , 2 SISTER(S) . 2DAUGHTER(S) . SOCIAL HISTORY GENERAL: TOBACCO USE ARE YOU A:FORMER SMOKER HOW LONG HAS IT BEEN SINCE YOU LAST SMOKED?6-12 MONTHS SMOKING CESSATION INFORMATION GIVEN01/01/2018 BMI CARE GOAL FOLLOW-UP ABOVE NORMAL BMI FOLLOW-UPLIFESTYLE EDUCATION REGARDING DIET ALCOHOL SCREENING DID YOU HAVE A DRINK CONTAINING ALCOHOL IN THE PAST YEAR?NO POINTS0 INTERPRETATIONNEGATIVE RECREATIONAL DRUG USE DRUG USE?NO CAFFEINE CAFFEINE USE?YES SEXUAL HX HAD SEX IN THE LAST 12 MONTHS (VAGINAL, ORAL, OR ANAL)?YES WITHWOMEN ONLY PREVENTION STRATEGIES DISCUSSED:CONDOMS USE PROTECTION?NO HAVE YOU EVER HAD AN STD?NO HIV / HEP-C SCREENING HIV TEST OFFERED TO PATIENT:YES DATE OFFERED:10/06/2016 TEST ACCEPTED:NO HEP-C TEST OFFERED TO PATIENT:YES DATE OFFERED:10/06/2016 REASON:PATIENT DECLINED TEST ACCEPTED:NO 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 EDUCATION LEVEL OF EDUCATION:NOT FINISHED COLLEGE LEARNING BARRIERS / SPECIAL NEEDS CHANGE FROM LAST VISIT?YES BARRIERS TO LEARNING?NO HEARING IMPAIRED?NO VISION IMPAIRED?YES COGNITIVELY IMPAIRED?NO :CORRECTIVE LENSES READINESS TO LEARN?YES LEARNING PREFERENCES?NO LEARNING CAPABILITIES PRESENT?YES EMOTIONAL BARRIERS?NO SPECIAL DEVICES?NO RF TEST ENGINEER NEEDED?NO DOMESTIC VIOLENCE DO YOU FEEL SAFE IN YOUR ENVIRONMENT?YES OCCUPATION: NOT WORKING, UNABLE APPLYING FOR SSDI. DIET: REGULAR. EXERCISE: NO REGULAR EXERCISE. MARITAL STATUS: SINGLE. OTHERS AT HOME: GIRLFRIEND. NEW PATIENT PAIN DIARY PATIENT DESCRIBES PAIN :ACHING, BURNING, SHARP, SORE FROM 0-10, WHAT LEVEL IS YOUR PAIN TODAY?2.5 PAIN CLINIC PFS, CLERGY, PUBLIC HEALTH REFERRALS PFS REFERRAL NEEDED?NO CLERGY REFERRAL NEEDED?NO PUBLIC HEALTH REFERRAL NEEDED?NO WAS THE PROVIDER NOTIFIED OF ANY PERTINENT INFO?YES N/A HAS THE PATIENT BEEN EDUCATED REGARDING HIS/HER PLAN OF CARE?YES HAS THE PATIENT BEEN EDUCATED REGARDING PAIN, THE RISK FOR PAIN, THE IMPORTANCE OF EFFECTIVE PAIN MANAGEMENT, AND THE PAIN ASSESSMENT PROCESS?YES ADVANCE DIRECTIVE ADVANCE DIRECTIVE DISCUSSED WITH PATIENT:YES YES, PT STATES HCP IS TANNER PERERA - DAUGHTER [phone] PT STATES HE IS CUTTING DOWN ON SMOKING ALOT DOWN TO 2 DAILY11/27/17 1045 REVIEWED WITH PT. ADLREVIEWED WITH PT 03/01/18 1450 LASREVIEWED WITH PT 04/30/18 1106 BV. HOSPITALIZATION/MAJOR DIAGNOSTIC PROCEDURE NO HOSPITALIZATION HISTORY. REVIEW OF SYSTEMS REVIEWED BY: PROVIDER: ALFA JIMENEZ . CONSTITUTIONAL: ANY CHANGE IN YOUR MEDICAL CONDITION? NO . CHILLS NO . FEVER NO . INFECTION: DO YOU HAVE NEW INFECTIONS? NO . DO YOU HAVE HISTORY OF MRSA? NO . MUSCULOSKELETAL: ANY NEW PATTERNS OF PAIN OR NUMBNESS? NO . GASTROENTEROLOGY: ANY NEW CHANGE IN BOWEL CONTROL? NO . GENITOURINARY: ANY NEW CHANGE IN BLADDER CONTROL? NO . IS THERE A CHANCE YOU COULD BE ? NO . HEMATOLOGY/LYMPH: DO YOU TAKE ANY BLOOD THINNERS? (FOR EXAMPLE- COUMADIN, PLAVIX, AGGRENOX, PLATEL, PRADAXA, OR XARELTO) NO . WHEN WAS YOUR LAST DOSE? DATE: TIME: . NEUROLOGY: HAVE YOU FALLEN IN THE PAST 12 MONTHS? NO . ANY NEW EXTREMITY NUMBNESS OR WEAKNESS? NO . CARDIOLOGY: DO YOU HAVE A PACEMAKER OR DEFIBRILLATOR? NO . RESPIRATORY: HAVE YOU BEEN SICK IN THE PAST WEEK? NO . FEVER NO . FLU LIKE SYMPTOMS? NO . COUGH NO . INTEGUMENTARY: DO YOU HAVE ANY RASHES OR OPEN SORES? NO . ALLERGIC/IMMUNO: ARE YOU ALLERGIC TO IV DYE? NO . ANY NEW ALLERGIES? NO . PSYCHIATRIC: DO YOU HAVE THOUGHTS OF HURTING YOURSELF OR SOMEONE ELSE? NO . ARE YOU ABUSED, NEGLECTED, OR IN AN UNSAFE ENVIRONMENT? NO . ENDOCRINOLOGY: ARE YOU DIABETIC? NO . OTHER: DO YOU NEED ANY PRESCRIPTIONS? YES GABAPENTIC . IF YES, PLEASE LIST: ____ . ANY NEW PROBLEMS WITH YOUR MEDICATIONS? NO . WHEN DID YOU LAST EAT? ____ . WHEN DID YOU LAST DRINK? ____ . WHAT DID YOU LAST DRINK? ____ . NAME OF PERSON DRIVING YOU HOME? ____ . DO YOU HAVE ANY OTHER QUESTIONS OR CONCERNS NO . VITAL SIGNS WT 194 LBS, HT 66 IN, BMI 31.31 INDEX, BP 140/86 MM HG, HR 65 /MIN, RR 18 /MIN, TEMP 97.4 F, OXYGEN SAT % 97%, NA INITIALS AW 1352, REVIEWED BY: KG. EXAMINATION GENERAL EXAMINATION: GENERAL APPEARANCE:ALERT,NO DISTRESS . PSYCHAFFECT NORMAL . LUNGS:LUNG SOUNDS ARE CLEAR . HEART:HEART RATE REGULAR . MUSCULOSKELETAL:MST 5/5 BILAT. LOWER EXTREMITIES . LUMBAR SACRAL SPINE TENDERNESS LEFT SIJ . DIAGNOSTIC TESTS REVIEWEDCT L/S [id number] . ASSESSMENTS SACROILIITIS, NOT ELSEWHERE CLASSIFIED - M46.1 (PRIMARY) TREATMENT SACROILIITIS, NOT ELSEWHERE CLASSIFIED CONTINUE TIZANIDINE HCL TABLET, 4 MG, 1 TABLET NEEDED, ORALLY NEEDED FOR SPASMS AND PAIN, BEFORE BEDTIME, NOTES: 06/27/18 CONTINUE MELOXICAM TABLET, 15 MG, 1 TABLET, ORALLY, DAILY, NOTES: 06/25/18 CONTINUE METHOCARBAMOL TABLET, 500 MG, 1.5 TABLETS, ORALLY, Q12H PRN, NOTES: 06/27/18 REFILL GABAPENTIN TABLET, 600 MG, 1, ORALLY, THREE TIMES A DAY, 30 DAY(S), 90, REFILLS 3, NOTES: 06/27/18 NOTES: LEFT SIJ. PROCEDURE CODES FA211 ESTABILISHED PATIENT [facility] CHARGE DISPOSITION & COMMUNICATION FOLLOW UP POST (REASON: LEFT SIJ) ELECTRONICALLY SIGNED BY BARBARA HEARD ON 07/27/2018 AT 03:56 PM EST DISCLAIMER : THIS IS A VISIT SUMMARY EXTRACTED FROM THE [employer] CHART. IT IS NOT A COPY OF THE [employer] PROGRESS NOTE. MTDD
== END ==
LOC: M PAIN 15:30
PROVIDERS: ATTEND Nurse Practitioner Family
DX: M46.1 Sacroiliitis, not elsewhere classified (principal); I10 Essential (primary) hypertension; E11.9 Type 2 diabetes mellitus without complications; G43.909 Migraine, unspecified, not intractable, without status migrainosus; E78.5 Hyperlipidemia, unspecified; Z79.84 Long term (current) use of oral hypoglycemic drugs; Z79.899 Other long term (current) drug therapy; Z88.6 Allergy status to analgesic agent; Z87.891 Personal history of nicotine dependence

== ENCOUNTER → 2018-07-19 | Outpatient (CLI) | payer OTHER ==
[~2018-07-19] MED LIST changes: +BUPIVACAINE HCL 0.25% 30 ML VIAL As Ordered ONE; +ISOVUE-M 300 61% 15ML VIAL (Q9967) As Ordered ONE; +LIDOCAINE 1% SDV INJ 30 ML VIAL As Ordered ONE; +TRIAMCINOLONE ACETONIDE SUSP 40 MG/ML VIAL (J3301) As Ordered ONE; +diazePAM 5 MG TAB As Ordered ONE; +oxyCODONE 5MG TAB As Ordered ONE
--- NOTE | 2018-07-19 12:26 | REP ---
SI joint series: Four views. History: Bilateral SI joint injection for pain. 24 seconds of fluoroscopy time is reported. Findings: A sequence of four last image hold fluoroscopically obtained spot radiographs of the SI joints document needle position and contrast injection associated with SI joint injection procedure. Electronically Signed by Wang Laureano MD 07/19/2018 12:17 P
--- NOTE | 2018-08-04 23:29 | ECWPNPC ---
PATIENT NAME: ALLYN PERERA : 1960 GENDER: MALE VISIT DATE: 07/19/2018 DISCHARGE DATE: 07/19/18 1257 VISIT LOCKED DATE TIME: PHYSICIAN: KIARA MAYER MD RESOURCE: KIARA MAYER MD REASON FOR APPOINTMENT 1. [facility] HISTORY OF PRESENT ILLNESS HISTORY OF PRESENT ILLNESS: PAIN THE PATIENT DESCRIBES THE PAIN... FALL RISK SCREENING: SCREENING :NO FALLS IN THE PAST YEAR CURRENT MEDICATIONS TAKING FLONASE 50 MCG/ACT SUSPENSION 1 SPRAY IN EACH NOSTRIL NASALLY ONCE A DAY, NOTES: 07/17/18 TAKING BLOOD GLUCOSE METER - KIT 1 METER DX:E11.65 TWICE DAILY TAKING BD LANCET ULTRAFINE 33G - MISCELLANEOUS 1 LANCET INTRADERMALLY TWICE DAILY DX:E11.65 TAKING ZYRTEC ALLERGY 10 MG TABLET 1 TABLET ORALLY ONCE A DAY NEEDED, NOTES: 07/18/181999 TAKING ALCOHOL PREP PAD 70 % PAD 1 TOPICALLY TWICE DAILY DX:E11.65 TAKING METFORMIN HCL 1000 MG TABLET 1 TABLET WITH MEALS ORALLY TWICE A DAY, NOTES: 07/18/18 1800 TAKING METOPROLOL TARTRATE 100 MG TABLET 1 TABLET WITH FOOD ORALLY TWICE A DAY, NOTES: 0800 TAKING AMLODIPINE BESYLATE 10 MG TABLET 1 TABLET ORALLY ONCE A DAY, NOTES: 0800 TAKING BUPROPION HCL 100 MG TABLET 1 TABLET ORALLY TWICE A DAY, NOTES: 07/18/18 1300 TAKING ATORVASTATIN CALCIUM 80 MG TABLET 1 TABLET ORALLY ONCE A DAY, NOTES: 07/18/18 1300 TAKING LISINOPRIL 20 MG TABLET 1 TAB ORALLY DAILY, NOTES: 07/18/18 1300 TAKING BLOOD GLUCOSE TEST STRIP - STRIP 1 STRIP IN VITRO DX:E11.65 TWICE DAILY TAKING CITALOPRAM HYDROBROMIDE 20 MG TABLET 1 TABLET ORALLY ONCE A DAY, NOTES: 07/18/181999 TAKING TIZANIDINE HCL 4 MG TABLET 1 TABLET NEEDED ORALLY NEEDED FOR SPASMS AND PAIN BEFORE BEDTIME, NOTES: 07/18/182199 TAKING MELOXICAM 15 MG TABLET 1 TABLET ORALLY DAILY, NOTES: 07/17/18 TAKING METHOCARBAMOL 500 MG TABLET 1.5 TABLETS ORALLY Q12H PRN, NOTES: 07/17/18 TAKING GABAPENTIN 600 MG TABLET 1 ORALLY THREE TIMES A DAY, NOTES: 07/18/182199 TAKING MELATONIN 5 MG TABLET 1 TABLET AT BEDTIME NEEDED WITH FOOD ORALLY ONCE A DAY, NOTES: 3 DAYS AGO NOT-TAKING SOMA 350 MG TABLET 1 TABLET NEEDED ORALLY Q8H PRN MDD2 NOT-TAKING PAXIL 20 MG TABLET 1 TABLET IN THE MORNING ORALLY ONCE A DAY NOT-TAKING CETIRIZINE HCL 10 MG TABLET 1 TABLET ORALLY ONCE A DAY NOT-TAKING NEXIUM 20 MG PACKET 1 PACKET MIXED WITH 15 ML OF WATER 1 HOUR BEFORE A MEAL ORALLY ONCE A DAY NOT-TAKING RHINOCORT ALLERGY 32 MCG/ACT SUSPENSION 2 PUFFS IN EACH NOSTRIL NASALLY ONCE A DAY NOT-TAKING KETOCONAZOLE 2% CREAM APPLY TO AFFECTED AREA OF PENIS TWO TIMES A DAY FOR 14 DAYS NOT-TAKING STEGLATRO 5 MG TABLET 1 TABLET ORALLY ONCE A DAY NOT-TAKING CHANTIX 0.5 MG TABLET 1 TABLET ORALLY ONCE A DAY MEDICATION LIST REVIEWED AND RECONCILED WITH THE PATIENT PAST MEDICAL HISTORY HTN SHORT'S PALSY UNSPECIFIED ESSENTIAL HYPERTENSION NONDEPENDENT TOBACCO USE DISORDER SMOKING MIGRAINE WITHOUT AURA, WITH INTRACTABLE MIGRAINE, SO STATED, WITHOUT MENTION OF STATUS MIGRAINOSUS ALLERGIC CONJUNCTIVITIS HYPERLIPIDEMIA ESSENTIAL HYPERTENSION ASCVD10 (2016)- 11.5% DIEBETIC TYPE 2 EPIDIDYMITIS ALLERGIES ASPIR-81: VOMITING: SIDE EFFECTS SURGICAL HISTORY RIGHT EPIDIDYMAL CYST REMOVAL 07/08/[address] ROBIN 08/2016 LEFT INGUINAL HERNIA 02/10/2017 PRIFORMIS MUSCLE INJECTION -RIGHT-[facility] 12/28/2016 BILATIERAL INGUINAL HERNIA REPAIR 02/10/17 RIGHT HERNIA REPAIR 06/2017 FAMILY HISTORY FATHER: , DIAGNOSED WITH HYPERTENSION MOTHER: , DIAGNOSED WITH DIABETES SIBLINGS: ALIVE DAUGHTER(S): ALIVE 1 BROTHER(S) , 2 SISTER(S) . 2DAUGHTER(S) . SOCIAL HISTORY GENERAL: TOBACCO USE ARE YOU A:FORMER SMOKER HOW LONG HAS IT BEEN SINCE YOU LAST SMOKED?6-12 MONTHS SMOKING CESSATION INFORMATION GIVEN01/01/2018 BMI CARE GOAL FOLLOW-UP ABOVE NORMAL BMI FOLLOW-UPLIFESTYLE EDUCATION REGARDING DIET ALCOHOL SCREENING DID YOU HAVE A DRINK CONTAINING ALCOHOL IN THE PAST YEAR?NO POINTS0 INTERPRETATIONNEGATIVE RECREATIONAL DRUG USE DRUG USE?NO CAFFEINE CAFFEINE USE?YES SEXUAL HX HAD SEX IN THE LAST 12 MONTHS (VAGINAL, ORAL, OR ANAL)?YES WITHWOMEN ONLY PREVENTION STRATEGIES DISCUSSED:CONDOMS USE PROTECTION?NO HAVE YOU EVER HAD AN STD?NO HIV / HEP-C SCREENING HIV TEST OFFERED TO PATIENT:YES DATE OFFERED:10/06/2016 TEST ACCEPTED:NO HEP-C TEST OFFERED TO PATIENT:YES DATE OFFERED:10/06/2016 REASON:PATIENT DECLINED TEST ACCEPTED:NO REASON:PATIENT DECLINED ANABAPTISM [id number] ZOROASTRIAN LANGUAGE GERMAN. EDUCATION LEVEL OF EDUCATION:NOT FINISHED COLLEGE LEARNING BARRIERS / SPECIAL NEEDS CHANGE FROM LAST VISIT?YES BARRIERS TO LEARNING?NO HEARING IMPAIRED?NO VISION IMPAIRED?YES COGNITIVELY IMPAIRED?NO :CORRECTIVE LENSES READINESS TO LEARN?YES LEARNING PREFERENCES?NO LEARNING CAPABILITIES PRESENT?YES EMOTIONAL BARRIERS?NO SPECIAL DEVICES?NO MANAGER SHIP NEEDED?NO DOMESTIC VIOLENCE DO YOU FEEL SAFE IN YOUR ENVIRONMENT?YES OCCUPATION: NOT WORKING, UNABLE APPLYING FOR SSDI. DIET: REGULAR. EXERCISE: NO REGULAR EXERCISE. MARITAL STATUS: SINGLE. OTHERS AT HOME: GIRLFRIEND. NEW PATIENT PAIN DIARY PATIENT DESCRIBES PAIN :ACHING, BURNING, SHARP, SORE FROM 0-10, WHAT LEVEL IS YOUR PAIN TODAY?2.5 PAIN CLINIC PFS, CLERGY, PUBLIC HEALTH REFERRALS PFS REFERRAL NEEDED?NO CLERGY REFERRAL NEEDED?NO PUBLIC HEALTH REFERRAL NEEDED?NO WAS THE PROVIDER NOTIFIED OF ANY PERTINENT INFO?YES N/A HAS THE PATIENT BEEN EDUCATED REGARDING HIS/HER PLAN OF CARE?YES HAS THE PATIENT BEEN EDUCATED REGARDING PAIN, THE RISK FOR PAIN, THE IMPORTANCE OF EFFECTIVE PAIN MANAGEMENT, AND THE PAIN ASSESSMENT PROCESS?YES ADVANCE DIRECTIVE ADVANCE DIRECTIVE DISCUSSED WITH PATIENT:YES YES, PT STATES HCP IS TANNER PERERA - DAUGHTER [phone] PT STATES HE IS CUTTING DOWN ON SMOKING ALOT DOWN TO 2 DAILY11/27/17 1045 REVIEWED WITH PT. ADLREVIEWED WITH PT 03/01/18 1450 LASREVIEWED WITH PT 04/30/18 1106 BVREVIEWED WITH PATIENT 07/19/18 1058 JS. HOSPITALIZATION/MAJOR DIAGNOSTIC PROCEDURE NO HOSPITALIZATION HISTORY. REVIEW OF SYSTEMS REVIEWED BY: PROVIDER: . CONSTITUTIONAL: ANY CHANGE IN YOUR MEDICAL CONDITION? NO . CHILLS NO . FEVER NO . INFECTION: DO YOU HAVE NEW INFECTIONS? NO . DO YOU HAVE HISTORY OF MRSA? NO . MUSCULOSKELETAL: ANY NEW PATTERNS OF PAIN OR NUMBNESS? NO . GASTROENTEROLOGY: ANY NEW CHANGE IN BOWEL CONTROL? NO . GENITOURINARY: ANY NEW CHANGE IN BLADDER CONTROL? NO . IS THERE A CHANCE YOU COULD BE ? NO . HEMATOLOGY/LYMPH: DO YOU TAKE ANY BLOOD THINNERS? (FOR EXAMPLE- COUMADIN, PLAVIX, AGGRENOX, PLATEL, PRADAXA, OR XARELTO) NO . WHEN WAS YOUR LAST DOSE? DATE: TIME: . NEUROLOGY: HAVE YOU FALLEN IN THE PAST 12 MONTHS? NO . ANY NEW EXTREMITY NUMBNESS OR WEAKNESS? NO . CARDIOLOGY: DO YOU HAVE A PACEMAKER OR DEFIBRILLATOR? NO . RESPIRATORY: HAVE YOU BEEN SICK IN THE PAST WEEK? NO . FEVER NO . FLU LIKE SYMPTOMS? NO . COUGH NO . INTEGUMENTARY: DO YOU HAVE ANY RASHES OR OPEN SORES? NO . ALLERGIC/IMMUNO: ARE YOU ALLERGIC TO IV DYE? NO . ANY NEW ALLERGIES? NO . PSYCHIATRIC: DO YOU HAVE THOUGHTS OF HURTING YOURSELF OR SOMEONE ELSE? NO . ARE YOU ABUSED, NEGLECTED, OR IN AN UNSAFE ENVIRONMENT? NO . ENDOCRINOLOGY: ARE YOU DIABETIC? YES, FSBS 116 THIS AM AT 0800 . OTHER: DO YOU NEED ANY PRESCRIPTIONS? NO . IF YES, PLEASE LIST: ____ . ANY NEW PROBLEMS WITH YOUR MEDICATIONS? NO . WHEN DID YOU LAST EAT? ____07/18/18 2200 . WHEN DID YOU LAST DRINK? ____07/19/18 0800 . WHAT DID YOU LAST DRINK? ____WATER . NAME OF PERSON DRIVING YOU HOME? ____DELBERT KIRBY . DO YOU HAVE ANY OTHER QUESTIONS OR CONCERNS NO . VITAL SIGNS WT 194 LBS, HT 66 IN, BMI 31.31 INDEX, BP 142/90 MM HG, HR 60 /MIN, RR 18 /MIN, TEMP 97.6 F, OXYGEN SAT % 95%, BLOOD GLUCOSE LEVEL 116 THIS AM PER PATIENT, SAFE IN ENV? (Y/N) YES, NA INITIALS AW 1049, REVIEWED BY: SEAN. ASSESSMENTS SACROILIITIS, NOT ELSEWHERE CLASSIFIED - M46.1 (PRIMARY) TREATMENT SACROILIITIS, NOT ELSEWHERE CLASSIFIED REFILL SOMA TABLET, 350 MG, 1 TABLET NEEDED, ORALLY FOR SPASMS AND PAIN ( FOR POST-OP PERIOD), Q8H PRN MDD2, 3 DAYS, 6 TABLET, REFILLS 0 [facility] FLUORO GUIDANCE (PAIN)[id number] CLINICAL NOTES: ISTOP NUMBER [id number] CHECKED. PROCEDURES PN SI PRE PROCEDURE DIAGNOSIS SACROILIITIS, SACROILIAC JOINT DYSFUNCTION POST PROCEDURE DIAGNOSIS SACROILIITIS, SACROILIAC JOINT DYSFUNCTION PROCEDURE BILATERAL SACROILIAC JOINT BLOCK SURGEON DR. KIARA MAYER CHEMICAL OPERATIONS SPECIALIST NONE ANESTHESIA LOCAL PRE PROCEDURE NOTE PATIENT WITH HISTORY OF CHRONIC LOW BACK PAIN. I EVALUATED THE PATIENT AND REVIEWED THE CHART. I WENT OVER THE RISKS, ALTERNATIVES, AND BENEFITS ASSOCIATED WITH THIS PROCEDURE. THE PATIENT WOULD LIKE TO PROCEED AND GAVE CONSENT TO PERFORM THE PROCEDURE. THE PATIENT DENIES UNEXPLAINABLE WEIGHT LOSS, FEVER, CHILLS, OR NEW CHANGES IN URINARY OR BOWEL CONTROL DESCRIPTION OF PROCEDURE THE PATIENT WAS BROUGHT TO THE PROCEDURE ROOM AND PLACED IN THE PRONE POSITION. THE LUMBOSACRAL AREA WAS CLEANED WITH CHLORAPREP SOLUTION AND DRAPED ASEPTICALLY. THE PROCEDURE WAS DONE UNDER STERILE CONDITIONS. I CHECKED LATERALITY AND THE LEVEL WHERE THE PROCEDURE WAS GOING TO BE PERFORMED WITH THE PATIENT AND THE SUPPORTING STAFF AT THE MOMENT OF THE TIME OUT IN THE PROCEDURE ROOM. UNDER FLUOROSCOPIC GUIDANCE, TARGET POINT WAS SELECTED AT THE LOWER BORDER OF THE RIGHT AND LEFT SACROILIAC JOINT. TARGET POINT WAS SELECTED AFTER MEDIAL ROTATION AND TILT OF THE MAGNIFIER OF THE C-ARM. LIDOCAINE WAS USED TO NUMB THE SKIN AND SUBCUTANEOUS TISSUE BELOW IT. A SPINAL NEEDLE, 22-GAUGE, WAS ADVANCED UNDER FLUOROSCOPIC GUIDANCE AND FOLLOWING PATIENT FEEDBACK UNTIL THE TARGET AREA WAS TOUCHED. THE POSITION OF THE NEEDLE WAS VERIFIED WITH AP AND LATERAL VIEWS. AFTER PROPER POSITION OF THE NEEDLE WAS ACHIEVED, ISOVUE M DYE 30%, 0.25 ML, WAS INJECTED SHOWING SPREAD OF THE DYE. THEN, A SOLUTION OF 20 MG OF KENALOG WAS INJECTED IN RIGHT AND LEFT JOINT WITH 3 ML OF BUPIVACAINE 0.125%. THERE WAS NO EVIDENCE OF BLOOD, PARESTHESIA OR CEREBROSPINAL FLUID DURING THE PROCEDURE. THE PATIENT WAS SENT TO THE RECOVERY ROOM. THE PATIENT WAS MOVING THE EXTREMITIES AND DOING WELL. THERE WAS NO COMPLICATION DURING THE PROCEDURE. FLUOROSCOPY TIME WAS 24 SECONDS POST PROCEDURE NOTE THE PATIENT WILL BE SEEN IN A FOLLOW UP IN THE NEXT FEW WEEKS. INSTRUCTIONS WERE GIVEN, QUESTIONS WERE ANSWERED, AND THE PATIENT EXPRESSED UNDERSTANDING AND AGREED WITH THE PLAN. I, LUPE ALMODOVAR, DOCUMENTED THE ABOVE INFORMATION ACTING A SCRIBE FOR DR. MAYER. I HAVE REVIEWED THE ABOVE DOCUMENT, WRITTEN BY LUPE FITZPATRICKIBAilyn AND I VERIFY THAT IT IS ACCURATE. PROCEDURE CODES 6045F RADXPS IN END [id number] PXD [id number] INJECT SACROILIAC JOINT, MODIFIERS: 50 DISPOSITION & COMMUNICATION FOLLOW UP 3 WEEKS ELECTRONICALLY SIGNED BY KIARA MAYER MD, MD ON 08/04/2018 AT 04:36 PM EST DISCLAIMER : THIS IS A VISIT SUMMARY EXTRACTED FROM THE [employer] CHART. IT IS NOT A COPY OF THE [employer] PROGRESS NOTE. DARLIN
== END ==
LOC: M PAIN 11:00
PROVIDERS: ATTEND Anesthesiology
DX: G89.29 Other chronic pain (principal); M46.1 Sacroiliitis, not elsewhere classified; M53.88 Other specified dorsopathies, sacral and sacrococcygeal region; E11.9 Type 2 diabetes mellitus without complications; I10 Essential (primary) hypertension; G43.909 Migraine, unspecified, not intractable, without status migrainosus; E78.5 Hyperlipidemia, unspecified; Z79.84 Long term (current) use of oral hypoglycemic drugs; Z79.899 Other long term (current) drug therapy; Z88.6 Allergy status to analgesic agent; Z87.891 Personal history of nicotine dependence
CPT/HCPCS: 27096; J3301; Q9967

== ENCOUNTER → 2018-08-10 | Outpatient (REF) | payer OTHER ==
[~2018-08-10] MED LIST changes: -BUPIVACAINE HCL 0.25% 30 ML VIAL As Ordered ONE; -ISOVUE-M 300 61% 15ML VIAL (Q9967) As Ordered ONE; -LIDOCAINE 1% SDV INJ 30 ML VIAL As Ordered ONE; -TRIAMCINOLONE ACETONIDE SUSP 40 MG/ML VIAL (J3301) As Ordered ONE; -diazePAM 5 MG TAB As Ordered ONE; -oxyCODONE 5MG TAB As Ordered ONE
[2018-08-10 12:30] LABS: ALBUMIN 3.2 GM/DL (3.2-5.2); ALT/SGPT 445 U/L (12-78); BILIRUBIN,DIRECT 0.3 MG/DL (0.0-0.2); BILIRUBIN,TOTAL 0.8 MG/DL (0.2-1.0); BLOOD UREA NITROGEN 21 MG/DL (7-18); CARBON DIOXIDE LEVEL 26 MEQ/L (21-32); CHLORIDE LEVEL 105 MEQ/L (98-107); CREATININE FOR GFR 0.74 MG/DL (0.70-1.30); GLOMERULAR FILTRATION RATE > 60.0 (>56); GLUCOSE, FASTING 166 MG/DL (70-100); POTASSIUM SERUM 4.4 MEQ/L (3.5-5.1); SODIUM LEVEL 139 MEQ/L (136-145); TOTAL PROTEIN 6.6 GM/DL (6.4-8.2)
== END ==
LOC: M SFHCPLAZ 09:20
PROVIDERS: ATTEND Family Medicine
DX: R73.09 Other abnormal glucose (principal); R74.0 Nonspecific elevation of levels of transaminase and lactic acid dehydrogenase [LDH]

== ENCOUNTER → 2018-08-30 | Outpatient (CLI) | payer OTHER ==
[~2018-08-30] MED LIST changes: +CITA-230 PO; +FLUTISP NARES; +GLIM2TAB PO; +LISI-538 PO; +METO100T5 PO; +NEUR600T PO
[2018-08-30 17:16] LABS: BASO % 0.3 % (0.0-1.0); EOS # 0.1 10^3/uL (0.0-0.50); EOS % 0.7 % (0.0-3.0); HEMATOCRIT 41.5 % (42.0-52.0); HEMOGLOBIN 14.1 g/dl (13.5-17.5); LYMPH # 2.7 10^3/uL (1.5-4.5); LYMPH % 23.1 % (24.0-44.0); MEAN CORPUSCULAR HEMOGLOBIN 33.1 pg (27.0-33.0); MEAN CORPUSCULAR VOLUME 97.4 fl (80.0-96.0); MONO # 1.2 10^3/uL (0.0-0.8); MONO % 10.4 % (0.0-5.0); NEUTROPHILS # 7.6 10^3/uL (1.8-7.7); NEUTROPHILS % 64.8 % (36.0-66.0); PLATELET COUNT, AUTOMATED 180 10^3/uL (150-450); RED BLOOD COUNT 4.26 10^6/uL (4.30-6.10); WHITE BLOOD COUNT 11.6 10^3/uL (4.0-10.0)
[2018-08-30 17:27] LABS: AMPHETAMINES URINE REFLEX NEGATIVE (NEGATIVE); BARBITURATES URINE REFLEX NEGATIVE (NEGATIVE); BENZODIAZEPINES URINE REFLEX NEGATIVE (NEGATIVE); CANNABINOIDS URINE REFLEX NEGATIVE (NEGATIVE); COCAINE METABOLITE URINE REFLE NEGATIVE (NEGATIVE); METHADONE URINE REFLEX NEGATIVE (NEGATIVE); OPIATES URINE REFLEX NEGATIVE (NEGATIVE); PHENCYCLIDINE URINE REFLEX NEGATIVE (NEGATIVE)
[2018-08-30 17:28] LABS: INR 1.17; PROTHROMBIN TIME 15.1 SECONDS (12.1-14.4)
[2018-08-30 17:29] LABS: PARTIAL THROMBOPLASTIN TIME 27.3 SECONDS (25.4-37.6)
[2018-08-30 17:45] LABS: CHOLESTEROL LEVEL 122 MG/DL (<200); CHOLESTEROL RISK RATIO 3.812 (<5); ETHYL ALCOHOL (ETHANOL) < 0.003 % (0.000-0.010); FERRITIN 2272 NG/ML (26-388); HDL CHOLESTEROL 32 MG/DL (>40); IRON (FE) 202 UG/DL (65-175); LDL CHOLESTEROL 39 MG/DL (<100); NON-HDL-C 90 MG/DL; PERCENT SATURATION 51.4 % (19.7-50.0); TOTAL IRON BINDING CAPACITY 393 UG/DL (250-450); TRIGLYCERIDES LEVEL 257 MG/DL (<150)
[2018-08-31 10:37] LABS: HEPATITIS B SURFACE ANTIGEN NEGATIVE (NEGATIVE)
[2018-08-31 11:04] LABS: HEPATITIS B CORE ANTIBODY IGM NEGATIVE (NEGATIVE)
[2018-08-31 11:07] LABS: HEPATITIS A ANTIBODY IGM NEGATIVE (NEGATIVE)
[2018-08-31 12:35] LABS: HEPATITIS C VIRUS ABY INDEX > 11.0 INDEX (<0.8)
[2018-09-01 10:27] LABS: ALPHA 1 ANTITRYPSIN 167 mg/dL (90-200); TISSUE TRANSGLUTAMINASE IgA <2 U/mL (0-3); TRANSFERRIN 313 mg/dL (200-370)
[2018-09-01 14:37] LABS: CERULOPLASMIN 37.2 mg/dL (16.0-31.0)
[2018-09-07 00:09] LABS: ANTI-MITOCHONDRIAL ANTIBODY <20.0 Units (0.0-20.0); ANTI-SMOOTH MUSCLE ANTIBODY 14 Units (0-19); ANTINUCLEAR ANTIBODIES DIRECT Negative (Negative)
== END ==
LOC: M LAB 16:24
PROVIDERS: ATTEND Student in an Organized Health Care Education/Training Program
DX: R74.8 Abnormal levels of other serum enzymes (principal)
CPT/HCPCS: 36415; 80061; 80307; 82103; 82390; 82728; 82784; 83550; 84466; 85025; 85610; 85730; 86038; 86235; 86255; 86705; 86709; 86803; 87340; 87521; G0480

== ENCOUNTER 2018-08-31 09:08 | Observation (INO) | payer OTHER ==
[~2018-08-31] VITALS: Ht 165.1 cm; Wt 85.5 kg
[~2018-08-31 09:08] MED LIST changes: -CITA-230 PO; -FLUTISP NARES; -GLIM2TAB PO; -LISI-538 PO; -METO100T5 PO; +METOPROLOL TARTRATE 100 MG TAB PO SCH; -NEUR600T PO
[2018-08-31] MEDS ORDERED: GLIM2TAB PO (09:32)
[2018-08-31] MEDS ORDERED: CITA-230 PO (09:32)
[2018-08-31 09:39] LABS: VENOUS BASE EXCESS -3.5 (-2.0-2.0); VENOUS O2 SATURATION 98.1 % (60.0-80.0); VENOUS PARTIAL PRESSURE CO2 36.2 mmHg (38.0-50.0); VENOUS PARTIAL PRESSURE O2 110.9 mmHg (30.0-50.0); VENOUS PH 7.381 UNITS (7.330-7.430); VENOUS STANDARD HCO3 21.6 MEQ/L; VENOUS TOTAL CO2 22.1 MEQ/L (24.0-28.0)
[2018-08-31 09:40] LABS: BASO % 0.1 % (0.0-1.0); HEMATOCRIT 36.4 % (42.0-52.0); LYMPH # 0.7 10^3/uL (1.5-4.5); LYMPH % 7.8 % (24.0-44.0); MEAN CORPUSCULAR HEMOGLOBIN 33.1 pg (27.0-33.0); MEAN CORPUSCULAR VOLUME 100.3 fl (80.0-96.0); MONO # 0.4 10^3/uL (0.0-0.8); MONO % 4.1 % (0.0-5.0); NEUTROPHILS # 7.9 10^3/uL (1.8-7.7); NEUTROPHILS % 87.3 % (36.0-66.0); PLATELET COUNT, AUTOMATED 122 10^3/uL (150-450); RED BLOOD COUNT 3.63 10^6/uL (4.30-6.10)
[2018-08-31 09:59] LABS: HEMOGLOBIN A1c 9.3 %
[2018-08-31] MEDS ORDERED: NS 1,000 ML IV ONE ×2 (10:00→10:15)
--- NOTE | 2018-08-31 10:02 | REP ---
AP PORTABLE CHEST: 08/31/2018: Clinical history: DKA. Comparison: CT chest 05/23/2017, chest x-ray 05/05/2017. Findings: Lungs are marginally adequate in the degree of inflation. There is some mild enlargement of the left atrium. The aorta is tortuous and ectatic, unchanged. Left ventricular configuration seen for the heart. I see no pulmonary edema. Some increased markings in the bases noted left greater than right may reflect some superimposed patchy atelectasis or infiltrate in retrocardiac region. No dense consolidation with air bronchograms. No definite layering effusion. Electronically Signed by Luisito Power MD 08/31/2018 06:31 P
[2018-08-31 10:12] LABS: ALBUMIN 2.9 GM/DL (3.2-5.2); ALT/SGPT 226 U/L (12-78); BILIRUBIN,DIRECT 0.3 MG/DL (0.0-0.2); BILIRUBIN,TOTAL 0.6 MG/DL (0.2-1.0); BLOOD UREA NITROGEN 29 MG/DL (7-18); CALCIUM LEVEL 9.2 MG/DL (8.5-10.1); CARBON DIOXIDE LEVEL 20 MEQ/L (21-32); CHLORIDE LEVEL 108 MEQ/L (98-107); CPK CREATINE PHOSPHOKINASE 30 U/L (39-308); CREATININE FOR GFR 1.16 MG/DL (0.70-1.30); GLOMERULAR FILTRATION RATE > 60.0 (>56); LIPASE 1002 U/L (73-393); MB/CK RELATIVE INDEX 4.33 (< OR =4); POTASSIUM SERUM 4.4 MEQ/L (3.5-5.1); SODIUM LEVEL 138 MEQ/L (136-145); TOTAL PROTEIN 6.4 GM/DL (6.4-8.2); TROPONIN I < 0.02 NG/ML (< 0.10)
[2018-08-31 10:23] LABS: ACETAMINOPHEN LEVEL < 2.0 UG/ML (10.0-30.0); SALICYLATE LEVEL < 1.7 MG/DL (5.0-30.0)
[2018-08-31] MEDS ORDERED: ISOVUE-370 76% 125ML VIAL (Q9967 PER ML) As Ordered ONE (10:35)
--- NOTE | 2018-08-31 11:48 | REP ---
CT ABDOMEN AND PELVIS WITH IV CONTRAST ONLY: 08/31/2018. Clinical history: Left lower quadrant pain, hypotension. Technique: The patient received bolus of 100 ml Isovue 370, scanning through the abdomen and pelvis with coronal and sagittal reconstructions. Findings: CT abdomen: There are no prior studies. The lung bases show minor dependent atelectatic changes but no effusion, infiltrate, nodule or mass. Heart size upper limits normal. Epicardial fat pads enlarge the cardiac silhouette on a radiograph. There is no pericardial thickening or effusion and no hiatal hernia. The right lobe of the liver is not enlarged. Left lobe is prominent and there is slight irregularity to the liver contour. This may reflect some mild chronic liver disease. No intrahepatic biliary dilatation, hepatic mass or cyst. The gallbladder is contracted with a small stone in its neck about 2 mm. I do not see evidence of calcified stone in the common duct. Pancreas shows no mass or ductal dilatation. However there are some peripancreatic and other retroperitoneal nodes. Near the pancreatic head and neck is an 8 mm node seen on image 58 with other nodes adjacent to the ryan hepatis 10 mm on image 52 and smaller nodes there and adjacent to the pancreatic head. Some gastrohepatic ligament nodes were also visible. Stomach shows no hiatal hernia and is collapsed. No splenomegaly or focal lesion. There is a tiny splenule inferior and medial to the splenic tip and adjacent to the peripheral margin of the tail of the pancreas seen on image 61. No adrenal lesions are seen. The kidneys show function without obstruction, stone, mass or cyst. The aorta is without aneurysm or dissection. It has a few scattered calcifications. Small bowel loops are grossly unremarkable. Abdominal portion of the colon shows stool and gas without sign of colitis or diverticulitis. Bone windows show lumbar and thoracic regions with vertebral bodies intact and some minor posterior element facet arthropathy lower lumbar region. No spondylolysis or spondylolisthesis. Visualized ribs were all intact. CT pelvis. Bone windows show the sacrum, pelvis, hips, SI joints and ischia intact except for some degenerative change, mild. Bladder well filled but without mass, wall thickening or stone. No distal ureteral dilatation or stone. Prostate abuts and indents bladder base but not grossly enlarged. There is no pathologic sized inguinal adenopathy. Omental fat distends the left inguinal canal but not the right. No bowel herniation. Distal left colon and sigmoid show some diverticulosis but no definite diverticulitis, colitis, stricture or mass. No perirectal inflammatory changes to suggest proctitis. Small bowel loops in the deep pelvis unremarkable. No inflammatory changes about the cecum or other findings to suggest appendicitis. No pelvic ascites or retroperitoneal hematoma. Impression: 1. Minor diverticulosis distal left colon and sigmoid without signs of diverticulitis, colitis, stricture or mass. Small bowel loops unremarkable, no inflammatory changes adjacent to the cecum. 2. No retroperitoneal hematoma in the abdomen or pelvis. No ascites. 3. Kidneys show no mass. There is no hydronephrosis, renal, ureteral or bladder stone. 4. 2 mm stone neck of the gallbladder on image 51 without intrahepatic biliary dilatation or adjacent ascites. Left lobe of liver is prominent with slightly lobulated contours suggesting some mild chronic liver disease. 5. Some adenopathy about the pancreatic head, ryan hepatis and elsewhere in the retroperitoneum and mesenteric region. Largest are the 10 and 8 mm nodes near the pancreas without pancreatic mass, ductal dilatation, peripancreatic fluid or edema. 6. Spleen, adrenal glands, kidneys and stomach unremarkable. Electronically Signed by Luisito Power MD 08/31/2018 06:35 P
[2018-08-31 12:24] LABS: AMPHETAMINES LEVEL URINE NEGATIVE (NEGATIVE); BARBITURATES URINE NEGATIVE (NEGATIVE); BENZODIAZEPINES URINE NEGATIVE (NEGATIVE); CANNABINOIDS URINE NEGATIVE (NEGATIVE); COCAINE METABOLITE URINE NEGATIVE (NEGATIVE); METHADONE URINE NEGATIVE (NEGATIVE); OPIATES URINE NEGATIVE (NEGATIVE); PHENCYCLIDINE URINE NEGATIVE (NEGATIVE)
[2018-08-31] MEDS ORDERED: METO100T5 PO (14:03)
[2018-08-31] MEDS ORDERED: NEUR600T PO (14:03)
[2018-08-31] MEDS ORDERED: LISI-538 PO (14:03)
[2018-08-31] MEDS ORDERED: FLUTISP NARES (14:05)
[2018-08-31] MEDS ORDERED: DEXTROSE 50% 50 ML SYRINGE IV PRN (14:30)
[2018-08-31] MEDS ORDERED: FLUTICASONE PROP 0.05% NASAL SPRAY 16 GM (FLONASE) NARES PRN (14:30)
[2018-08-31] MEDS ORDERED: GLUCAGON FOR INJ 1 MG VIAL (J1610) SC PRN (14:30)
[2018-08-31] MEDS ORDERED: ONDANSETRON 4MG/2ML VIAL (J2405) IV PRN (14:30)
[2018-08-31] MEDS ORDERED: GLUCOSE 4 GM CHEW TABLET PO PRN (14:30)
--- NOTE | 2018-08-31 15:13 | HPE ---
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 He was found to be hypotensive in the emergency room (ER), systolic in the 60s. He did also mention having diarrhea for the last 72 hours. Last episode was last evening. Has not been able to keep up with his fluid intake. He was given approximately 2.5 liters of normal saline, and his blood pressure now is systolic 110, and he feels better at this time. He denies any subjective feeling of fever, aches, or chills. He has no chest pain or shortness of breath. He is going to be admitted for further management. PAST MEDICAL HISTORY: 1. Hypertension. 2. Hyperlipidemia. 3. Diabetes. 4. Cornelius's palsy. PAST SURGICAL HISTORY: Bilateral inguinal hernia repair. DRUG ALLERGIES: ASPIRIN. FAMILY HISTORY: Noncontributory. SOCIAL HISTORY: Patient was a heavy smoker; quit approximately a year ago. Denies alcohol or illicit drugs. HOME MEDICATIONS: - amlodipine 10 mg orally daily - atorvastatin 80 mg orally daily - bupropion 150 mg orally twice daily - cetirizine 10 mg orally daily - fluticasone two sprays each nostril as needed - gabapentin 600 mg orally three times a day - glimepiride 2 mg orally in the morning - lisinopril 20 mg orally daily - meloxicam 15 mg orally by mouth every 3 daily - metformin 1000 mg orally twice daily - metoprolol 100 mg orally twice daily - tizanidine 4 mg orally at bedtime REVIEW OF SYSTEMS: Negative for [id number] systems except what is mentioned in the history of present illness (HPI). VITAL SIGNS: Blood pressure 139/83, heart rate 61, regular, respiratory rate is 18, temperature 95.5, oxygen saturation 98% on room air. HEAD: Atraumatic, normocephalic. NECK: Supple. No jugular venous distention (JVD). LUNGS: Clear to auscultation. S1, S2 audible. No murmurs appreciated. ABDOMEN: Soft. Positive bowel sounds. No pedal edema. SKIN: Intact. NEUROLOGIC: Patient awake, alert, oriented times three. LABORATORY DATA: Sodium 138, potassium 4.4, chloride 108, CO2 of 20, BUN is 29, creatinine 1.16. Fasting glucose levels are pending. Estimated mean plasma glucose is 220. Lactic acid is 3.1. Lipase is 1002. WBC 9, hemoglobin is 12, hematocrit is 36.4, platelets are 122,000. Urinalysis negative for urinary tract infection (UTI). IMPRESSION: 1. Hypotension. 2. Acute viral gastroenteritis. 3. Acute kidney injury (EDITA). PLAN: Patient to be admitted to medical/surgical floor. Will continue the patient on normal saline at 125 mL an hour. I am going to hold his metformin until his EDITA resolves. EDITA is likely secondary to prerenal azotemia from dehydration. Will follow BUN and creatinine tends. I will put him on a sliding scale instead. Otherwise, will continue his preadmission medications and continue his care on the medical/surgical floor. As far as the lipase is concerned, it is borderline, but he has no abdominal complaints except for nausea and diarrhea. Clinically not correlate with pancreatitis.
[2018-08-31] MEDS: GABAPENTIN 300 MG CAP PO SCH ×2 (15:25→20:44)
[2018-08-31] MEDS: CETIRIZINE (ZyrTEC) 10 MG TAB PO SCH (15:25)
[2018-08-31] MEDS: ATORVASTATIN 20 MG TAB PO SCH (15:25)
[2018-08-31] MEDS: amLODIPine 10 MG TAB PO SCH (15:26)
[2018-08-31] MEDS: NS 1,000 ML IV SCH (15:31)
[2018-08-31 17:17] LABS: GLUCOSE, FASTING 483 MG/DL (70-100)
[2018-08-31 17:18] LABS: ACETONE/KETONE 2.17 MG/DL (<2.81)
[2018-08-31 18:00] VITALS: BP 156/94
[2018-08-31] MEDS: HumaLOG INSULIN (NovoLOG) PER UNIT SC SCH (18:49)
[2018-08-31] MEDS: GLIMEPIRIDE 2 MG TAB PO SCH (19:18)
--- NOTE | 2018-08-31 20:34 | ECGEPIP ---
Stationary ECG Study [facility] - ED Test Date: 2018-08-31 Pat Name: ALLYN PERERA Department: Room: - Gender: M Occupational Health Rn: : 1960 Requested By: Escobar Trinh Order Number: [id number] Reading MD: Escobar Lopes Measurements Intervals [place] Rate: 69 P: 3 DE: 173 QRS: 3 QRSD: 102 T: -11 QT: 391 QTc: 419 Interpretive Statements SINUS RHYTHM VOLTAGE CRITERIA FOR LVH SIMILAR TO 01/09/17 Electronically Signed On 08-31-2018 20:34:27 EDT by Escobar Lopes
[2018-08-31] MEDS: METOPROLOL TARTRATE 100 MG TAB PO SCH (20:45)
[2018-08-31] MEDS ORDERED: HumaLOG INSULIN (NovoLOG) PER UNIT SC SCH (21:00)
[2018-08-31] MEDS ORDERED: tiZANidine 4 MG TAB PO SCH (21:00)
[2018-08-31] MEDS: buPROPion **SR TABLET** (ZYBAN) 150MG PO SCH (21:52)
[2018-08-31 22:00] VITALS: BP 139/80
[2018-09-01] MEDS: NS 1,000 ML IV SCH ×2 (00:20→06:16)
[2018-09-01] MEDS ORDERED: ACETAMINOPHEN TAB 650MG DOSE (2X325MG) PO ONE (04:15)
[2018-09-01 06:00] VITALS: BP 158/98
[2018-09-01 07:05] LABS: BASO % 0.1 % (0.0-1.0); EOS % 0.2 % (0.0-3.0); HEMATOCRIT 32.6 % (42.0-52.0); LYMPH # 1.4 10^3/uL (1.5-4.5); MEAN CORPUSCULAR HEMOGLOBIN 33.5 pg (27.0-33.0); MEAN CORPUSCULAR HGB CONC 33.7 g/dl (32.0-36.5); MEAN CORPUSCULAR VOLUME 99.4 fl (80.0-96.0); MONO # 0.7 10^3/uL (0.0-0.8); MONO % 7.5 % (0.0-5.0); NEUTROPHILS # 7.5 10^3/uL (1.8-7.7); NEUTROPHILS % 77.6 % (36.0-66.0); PLATELET COUNT, AUTOMATED 104 10^3/uL (150-450); RED BLOOD COUNT 3.28 10^6/uL (4.30-6.10); WHITE BLOOD COUNT 9.6 10^3/uL (4.0-10.0)
[2018-09-01 07:32] LABS: BLOOD UREA NITROGEN 22 MG/DL (7-18); CALCIUM LEVEL 7.9 MG/DL (8.5-10.1); CARBON DIOXIDE LEVEL 23 MEQ/L (21-32); CHLORIDE LEVEL 110 MEQ/L (98-107); CREATININE FOR GFR 0.77 MG/DL (0.70-1.30); GLOMERULAR FILTRATION RATE > 60.0 (>56); GLUCOSE, FASTING 190 MG/DL (70-100); SODIUM LEVEL 140 MEQ/L (136-145)
[2018-09-01] MEDS: buPROPion **SR TABLET** (ZYBAN) 150MG PO SCH (08:47)
[2018-09-01 08:48] VITALS: BP 158/98
[2018-09-01] MEDS: amLODIPine 10 MG TAB PO SCH (08:48)
[2018-09-01] MEDS: METOPROLOL TARTRATE 100 MG TAB PO SCH (08:48)
[2018-09-01] MEDS: GABAPENTIN 300 MG CAP PO SCH (08:48)
[2018-09-01] MEDS: GLIMEPIRIDE 2 MG TAB PO SCH (08:48)
[2018-09-01] MEDS: CETIRIZINE (ZyrTEC) 10 MG TAB PO SCH (08:49)
[2018-09-01] MEDS: ATORVASTATIN 20 MG TAB PO SCH (08:49)
[2018-09-01] MEDS: HumaLOG INSULIN (NovoLOG) PER UNIT SC SCH (08:50)
[2018-09-01 10:13] LABS: ALBUMIN 2.5 GM/DL (3.2-5.2); ALT/SGPT 205 U/L (12-78); BILIRUBIN,DIRECT 0.3 MG/DL (0.0-0.2); BILIRUBIN,TOTAL 0.6 MG/DL (0.2-1.0); TOTAL PROTEIN 5.9 GM/DL (6.4-8.2)
[2018-09-01] MEDS ORDERED: GLIM2TAB PO (11:01)
--- NOTE | 2018-09-01 17:14 | IPNPDOC ---
Text Note Date of Service The patient was seen on 09/01/18. NOTE SUBJECTIVE: No episodes of diarrhea any more. No dizziness or light headedness. PHYSICAL EXAM: VITAL SIGNS:As below HEAD: Atraumatic, normocephalic. NECK: Supple. No jugular venous distention (JVD). LUNGS: Clear to auscultation. S1, S2 audible. No murmurs appreciated. ABDOMEN: Soft. Positive bowel sounds. No pedal edema. SKIN: Intact. NEUROLOGIC: Patient awake, alert, oriented times three. LAbs and Radiology: reviewed Assessment and Plan: This is a 57-year-old male with a past medical history of hypertension, obesity, hyperlipidemia, diabetes, Cornelius's palsy, fatty liver, sacroilitis s/p local injection, h/o c diff in 2017, Migraine, who presents to the emergency room with vertigo that he had at home. He was found to be hypotensive in the emergency room (ER), systolic in the 60s. He did also mention having diarrhea for the last 72 hours. Has not been able to keep up with his fluid intake. he was admitted for hypotension due to hypovolemia from diarrhea. He was also noted to have transaminitis which is being worked up. Hypotension due to severe diarrhea thought to be due to viral gastroenteritis. responded to IVF, now resolved will stop fluids. Transaminitis HepC antibody positive ordered viral RNA Also very high ferritin level> 2000 need to be evaluated for hemochromatosis Also has positive PHIL, dsDNA and RF CT abdomen pelvis shows irregular lobular features of the left lobe of liver probably has beginning of cirrhosis. will need to follow up with GI and ID Hypertension continue amlodipine and metoprolol Diabetes continue glimepiride and lispro Hyperlipidemia continue statin Back pain Sacroilitis continue tizanidine Disposition : Discharged home. follow up with PMD for liver tests. VS,Fishbone, I+O VS, Fishbone, I+O Laboratory Tests 08/31/18 09:25 Red Blood Count 3.63 L, Mean Corpuscular Volume 100.3 H, Mean Corpuscular Hemoglobin 33.1 H, Mean Corpuscular Hemoglobin Concent 33.0, Red Cell Distribution Width 14.6 H, Neutrophils (%) (Auto) 87.3 H, Lymphocytes (%) (Auto) 7.8 L, Monocytes (%) (Auto) 4.1, Eosinophils (%) (Auto) 0.0, Basophils (%) (Auto) 0.1, Neutrophils # (Auto) 7.9 H, Lymphocytes # (Auto) 0.7 L, Monocytes # (Auto) 0.4, Eosinophils # (Auto) 0.0, Basophils # (Auto) 0.0 09/01/18 06:46 Red Blood Count 3.28 L, Mean Corpuscular Volume 99.4 H, Mean Corpuscular Hemoglobin 33.5 H, Mean Corpuscular Hemoglobin Concent 33.7, Red Cell Distribution Width 14.6 H, Neutrophils (%) (Auto) 77.6 H, Lymphocytes (%) (Auto) 14.0 L, Monocytes (%) (Auto) 7.5 H, Eosinophils (%) (Auto) 0.2, Basophils (%) (Auto) 0.1, Neutrophils # (Auto) 7.5, Lymphocytes # (Auto) 1.4 L, Monocytes # (Auto) 0.7, Eosinophils # (Auto) 0.0, Basophils # (Auto) 0.0, Calcium Level 7.9 L Vital Signs Date Time Temp Pulse Resp B/P (MAP) Pulse Ox O2 Delivery O2 Flow Rate FiO2 09/01/18 08:48 62 158/98 09/01/18 06:00 97.9 18 98 08/31/18 09:20 Room Air I&O- Last 24 Hours up to 6 AM 09/01/18 06:00 Intake Total 5050 ml Output Total 1000 ml Balance 4050 ml TEJAL SPEARS MD Sep 01, 2018 09:47
== END 2018-09-01 12:30 | disposition home or self-care (01) ==
LOC: M ED 09:08 → M ED INP 14:16 → M MS5PR 17:25
PROVIDERS: ADMIT Internal Medicine; ATTEND Internal Medicine Nephrology
DX: I95.9 Hypotension, unspecified (principal); K52.9 Noninfective gastroenteritis and colitis, unspecified; E86.1 Hypovolemia; R74.0 Nonspecific elevation of levels of transaminase and lactic acid dehydrogenase [LDH]; I10 Essential (primary) hypertension; E66.9 Obesity, unspecified; E11.9 Type 2 diabetes mellitus without complications; E78.5 Hyperlipidemia, unspecified; K76.0 Fatty (change of) liver, not elsewhere classified; M46.1 Sacroiliitis, not elsewhere classified; Z79.84 Long term (current) use of oral hypoglycemic drugs; Z79.899 Other long term (current) drug therapy
CPT/HCPCS: 36415; 71045; 74177; 80048; 80076; 80307; 81001; 81256; 82010; 82550; 82553; 82803; 83036; 83605; 83690; 85025; 93005; 93041; 96360; 99285; G0480; Q9967

== ENCOUNTER → 2018-09-11 | Outpatient (CLI) | payer OTHER ==
[~2018-09-11] MED LIST changes: +ACET-716 PO; -ACET30TAB PO; +CITA20TA7 PO; +FLUTISP NARES; +GLIM2TAB PO; +HYDR-2541 PO; +HYDR-3715 PO; -HYDR25TAB PO; +LISI-538 PO; +METO100T5 PO; -METOPROLOL TARTRATE 100 MG TAB PO SCH; +NEUR600T PO; -NORCOTAB PO
--- NOTE | 2018-09-26 02:04 | ECWPNPC ---
PATIENT NAME: ALLYN PERERA : 1960 GENDER: MALE VISIT DATE: 09/11/2018 DISCHARGE DATE: 09/11/18 1420 VISIT LOCKED DATE TIME: PHYSICIAN: ALFA CARRASCO RESOURCE: ALFA CARRASCO REASON FOR APPOINTMENT 1. POST PROC HISTORY OF PRESENT ILLNESS HISTORY OF PRESENT ILLNESS: HERE FOR POST PROCEDURE F/U.HAD BILATERAL SIJ ON 07/19/18.CONTINUES TO BENEFIT FROM INJECTIONS.RATING LOW BACK PAIN 3/10 VAS.RECENTLY DIAGNOSED WITH ? LIVER ABNORMALITIES.HAVING INTERMITTENT RINGING IN RIGHT EAR,DIZZY EPISODES AND FREQUENT FALLS OVER THE PAST 3-4 MONTHS. PAIN THE PATIENT DESCRIBES THE PAIN... FALL RISK SCREENING: SCREENING :NO FALLS REPORTED IN THE LAST YEAR CURRENT MEDICATIONS TAKING GLIMEPIRIDE 1 MG TABLET 1 TABLET WITH BREAKFAST OR THE FIRST MAIN MEAL OF THE DAY ORALLY ONCE A DAY ALONG WITH THE 2 MG GLIMEPIRIDE TABLET; MDD: 3 MG TAKING GLIMEPIRIDE 2 MG TABLET 1 TABLET WITH BREAKFAST OR THE FIRST MAIN MEAL OF THE DAY ORALLY ONCE A DAY TAKING AMLODIPINE BESYLATE 10 MG TABLET 1 TABLET ORALLY ONCE A DAY TAKING LISINOPRIL 20 MG TABLET 1 TAB ORALLY DAILY TAKING METOPROLOL TARTRATE 100 MG TABLET 1 TABLET WITH FOOD ORALLY TWICE A DAY TAKING ZYRTEC ALLERGY 10 MG TABLET 1 TABLET ORALLY ONCE A DAY NEEDED TAKING FLONASE 50 MCG/ACT SUSPENSION 1 SPRAY IN EACH NOSTRIL NASALLY ONCE A DAY TAKING BUPROPION HCL ER (SR) 150 MG TABLET EXTENDED RELEASE 12 HOUR 1 TABLET ORALLY TWICE A DAY TAKING MELOXICAM 15 MG TABLET 1 TABLET ORALLY DAILY TAKING METHOCARBAMOL 500 MG TABLET 1.5 TABLETS ORALLY Q12H PRN TAKING GABAPENTIN 600 MG TABLET 1 ORALLY THREE TIMES A DAY TAKING TIZANIDINE HCL 4 MG TABLET 1 TABLET NEEDED ORALLY NEEDED FOR SPASMS AND PAIN BEFORE BEDTIME TAKING ZOFRAN 4 MG TABLET DIRECTED ORALLY EVERY 6 HOURS NEEDED TAKING ATORVASTATIN CALCIUM 80 MG TABLET 1 TABLET ORALLY ONCE A DAY TAKING CETIRIZINE HCL 10 MG TABLET 1 TABLET ORALLY ONCE A DAY TAKING METFORMIN HCL 1000 MG TABLET 1 TABLET WITH MEALS ORALLY TWICE A DAY NOT-TAKING MELATONIN 5 MG TABLET 1 TABLET AT BEDTIME NEEDED WITH FOOD ORALLY ONCE A DAY NOT-TAKING CITALOPRAM HYDROBROMIDE 20 MG TABLET 1 TABLET ORALLY ONCE A DAY NOT-TAKING PAXIL 20 MG TABLET 1 TABLET IN THE MORNING ORALLY ONCE A DAY NOT-TAKING NEXIUM 20 MG PACKET 1 PACKET MIXED WITH 15 ML OF WATER 1 HOUR BEFORE A MEAL ORALLY ONCE A DAY NOT-TAKING RHINOCORT ALLERGY 32 MCG/ACT SUSPENSION 2 PUFFS IN EACH NOSTRIL NASALLY ONCE A DAY NOT-TAKING KETOCONAZOLE 2% CREAM APPLY TO AFFECTED AREA OF PENIS TWO TIMES A DAY FOR 14 DAYS NOT-TAKING STEGLATRO 5 MG TABLET 1 TABLET ORALLY ONCE A DAY NOT-TAKING CHANTIX 0.5 MG TABLET 1 TABLET ORALLY ONCE A DAY NOT-TAKING BLOOD GLUCOSE METER - KIT 1 METER DX:E11. TWICE DAILY NOT-TAKING BD LANCET ULTRAFINE 33G - MISCELLANEOUS 1 LANCET INTRADERMALLY TWICE DAILY DX:E11 NOT-TAKING ALCOHOL PREP PAD 70 % PAD 1 TOPICALLY TWICE DAILY DX: NOT-TAKING BLOOD GLUCOSE TEST STRIP - STRIP 1 STRIP IN VITRO DX:E11 TWICE DAILY MEDICATION LIST REVIEWED AND RECONCILED WITH THE PATIENT PAST MEDICAL HISTORY HTN SHORT'S PALSY UNSPECIFIED ESSENTIAL HYPERTENSION NONDEPENDENT TOBACCO USE DISORDER SMOKING MIGRAINE WITHOUT AURA, WITH INTRACTABLE MIGRAINE, SO STATED, WITHOUT MENTION OF STATUS MIGRAINOSUS ALLERGIC CONJUNCTIVITIS HYPERLIPIDEMIA ESSENTIAL HYPERTENSION ASCVD10 (2016)- 11.5% DIEBETIC TYPE 2 EPIDIDYMITIS ALLERGIES ASPIR-81: VOMITING - SIDE EFFECTS SURGICAL HISTORY RIGHT EPIDIDYMAL CYST REMOVAL 07/08/[address] ROBIN 08/2016 LEFT INGUINAL HERNIA 02/10/2017 PRIFORMIS MUSCLE INJECTION -RIGHT-[facility] 12/28/2016 BILATIERAL INGUINAL HERNIA REPAIR 02/10/17 RIGHT HERNIA REPAIR 06/2017 FAMILY HISTORY FATHER: , DIAGNOSED WITH HYPERTENSION MOTHER: , DIABETES SIBLINGS: ALIVE DAUGHTER(S): ALIVE 1 BROTHER(S) , 2 SISTER(S) . 2DAUGHTER(S) . SOCIAL HISTORY GENERAL: TOBACCO USE ARE YOU A:FORMER SMOKER HOW LONG HAS IT BEEN SINCE YOU LAST SMOKED?6-12 MONTHS SMOKING CESSATION INFORMATION GIVEN01/01/2018 LATEX QUESTIONNAIRE LATEX ALLERGY : HAVE YOU EVER DEVELOPED ANY TYPE OF REACTION AFTER HANDLING LATEX PRODUCTS SUCH RUBBER GLOVES, CONDOMS, DIAPHRAGMS, BALLOONS, SOCKS, OR UNDERWEAR?NO LATEX ALLERGY : HAVE YOU EVER DEVELOPED ANY TYPE OF REACTION DURING OR AFTER DENTAL APPOINTMENT, VAGINAL/RECTAL EXAMINATION, SURGICAL PROCEDURE, OR ANY OTHER EXPOSURE?NO LATEX RISK : HAVE YOU EVER HAD ANY DIFFICULTY BREATHING OR HIVES AFTER EATING OR HANDLING ANY FRUITS, OR VEGETABLES; SUCH KIWI, BANANAS, STONE FRUITS, OR CHESTNUTSNO LATEX RISK : DO YOU HAVE A PREVIOUS PERSONAL HISTORY OF MORE THAN NINE SURGERIES, SPINA BIFIDA, OR REPEATED CATHERTIZATIONS? NO LATEX RISK : ARE YOU FREQUENTLY EXPOSED TO LATEX PRODUCTS IN YOUR OCCUPATION?NO DATE ASKED : 09/11/2018 BMI CARE GOAL FOLLOW-UP ABOVE NORMAL BMI FOLLOW-UPLIFESTYLE EDUCATION REGARDING DIET ALCOHOL SCREENING DID YOU HAVE A DRINK CONTAINING ALCOHOL IN THE PAST YEAR?NO POINTS0 INTERPRETATIONNEGATIVE RECREATIONAL DRUG USE DRUG USE?NO CAFFEINE CAFFEINE USE?YES SEXUAL HX HAD SEX IN THE LAST 12 MONTHS (VAGINAL, ORAL, OR ANAL)?YES WITHWOMEN ONLY PREVENTION STRATEGIES DISCUSSED:CONDOMS USE PROTECTION?NO HAVE YOU EVER HAD AN STD?NO HIV / HEP-C SCREENING HIV TEST OFFERED TO PATIENT:YES DATE OFFERED:10/06/2016 TEST ACCEPTED:NO HEP-C TEST OFFERED TO PATIENT:YES DATE OFFERED:10/06/2016 REASON:PATIENT DECLINED TEST ACCEPTED:NO REASON:PATIENT DECLINED ORIENTAL ORTHODOX [id number] LATTER-DAY LANGUAGE ARMENIAN. EDUCATION LEVEL OF EDUCATION:NOT FINISHED COLLEGE LEARNING BARRIERS / SPECIAL NEEDS CHANGE FROM LAST VISIT?YES BARRIERS TO LEARNING?NO HEARING IMPAIRED?NO VISION IMPAIRED?YES COGNITIVELY IMPAIRED?NO :CORRECTIVE LENSES READINESS TO LEARN?YES LEARNING PREFERENCES?NO LEARNING CAPABILITIES PRESENT?YES EMOTIONAL BARRIERS?NO SPECIAL DEVICES?NO SEARCH ENGINE OPTIMIZATION SPECIALIST NEEDED?NO DOMESTIC VIOLENCE DO YOU FEEL SAFE IN YOUR ENVIRONMENT?YES OCCUPATION: NOT WORKING, UNABLE APPLYING FOR SSDI. DIET: REGULAR. EXERCISE: NO REGULAR EXERCISE. MARITAL STATUS: SINGLE. OTHERS AT HOME: GIRLFRIEND. NEW PATIENT PAIN DIARY PATIENT DESCRIBES PAIN :ACHING, BURNING, SHARP, SORE FROM 0-10, WHAT LEVEL IS YOUR PAIN TODAY?2.5 PAIN CLINIC PFS, CLERGY, PUBLIC HEALTH REFERRALS PFS REFERRAL NEEDED?NO CLERGY REFERRAL NEEDED?NO PUBLIC HEALTH REFERRAL NEEDED?NO WAS THE PROVIDER NOTIFIED OF ANY PERTINENT INFO?YES N/A HAS THE PATIENT BEEN EDUCATED REGARDING HIS/HER PLAN OF CARE?YES HAS THE PATIENT BEEN EDUCATED REGARDING PAIN, THE RISK FOR PAIN, THE IMPORTANCE OF EFFECTIVE PAIN MANAGEMENT, AND THE PAIN ASSESSMENT PROCESS?YES ADVANCE DIRECTIVE ADVANCE DIRECTIVE DISCUSSED WITH PATIENT:YES YES, PT STATES HCP IS TANNER PERERA - DAUGHTER [phone] PT STATES HE IS CUTTING DOWN ON SMOKING ALOT DOWN TO 2 DAILY11/27/17 1045 REVIEWED WITH PT. ADLREVIEWED WITH PT 03/01/18 1450 LASREVIEWED WITH PT 04/30/18 1106 BVREVIEWED WITH PATIENT 07/19/18 1058 JSREVIEWED WTIH PT 09/11/18 1324 BV. HOSPITALIZATION/MAJOR DIAGNOSTIC PROCEDURE HYPOTENSIVE AND HYPERGLYCEMIA 08/2018 REVIEW OF SYSTEMS REVIEWED BY: PROVIDER: ALFA JIMENEZ . CONSTITUTIONAL: ANY CHANGE IN YOUR MEDICAL CONDITION? YES, PT STATES HE WAS HOSPITALIZED 08/31/18 FOR HYPOTENSION DUE TO HYPOVOLEMIA. . CHILLS NO . FEVER NO . INFECTION: DO YOU HAVE NEW INFECTIONS? NO . DO YOU HAVE HISTORY OF MRSA? NO . MUSCULOSKELETAL: ANY NEW PATTERNS OF PAIN OR NUMBNESS? NO . GASTROENTEROLOGY: ANY NEW CHANGE IN BOWEL CONTROL? NO . GENITOURINARY: ANY NEW CHANGE IN BLADDER CONTROL? NO . IS THERE A CHANCE YOU COULD BE ? NO . HEMATOLOGY/LYMPH: DO YOU TAKE ANY BLOOD THINNERS? (FOR EXAMPLE- COUMADIN, PLAVIX, AGGRENOX, PLATEL, PRADAXA, OR XARELTO) NO . WHEN WAS YOUR LAST DOSE? DATE: TIME: . NEUROLOGY: HAVE YOU FALLEN IN THE PAST 12 MONTHS? PT STATES HE HAS HAD FREQUENT FALLS OVER THE PAST COUPLE MONTHS DUE TO LOSS OF BALANCE. DENIES ANY INJURIES OR ED VISIT . ANY NEW EXTREMITY NUMBNESS OR WEAKNESS? NO . CARDIOLOGY: DO YOU HAVE A PACEMAKER OR DEFIBRILLATOR? NO . RESPIRATORY: HAVE YOU BEEN SICK IN THE PAST WEEK? NO . FEVER NO . FLU LIKE SYMPTOMS? NO . COUGH NO . INTEGUMENTARY: DO YOU HAVE ANY RASHES OR OPEN SORES? NO . ALLERGIC/IMMUNO: ARE YOU ALLERGIC TO IV DYE? NO . ANY NEW ALLERGIES? NO . PSYCHIATRIC: DO YOU HAVE THOUGHTS OF HURTING YOURSELF OR SOMEONE ELSE? NO . ARE YOU ABUSED, NEGLECTED, OR IN AN UNSAFE ENVIRONMENT? NO . ENDOCRINOLOGY: ARE YOU DIABETIC? NO . OTHER: DO YOU NEED ANY PRESCRIPTIONS? NO . IF YES, PLEASE LIST: ____ . ANY NEW PROBLEMS WITH YOUR MEDICATIONS? NO . WHEN DID YOU LAST EAT? ____ . WHEN DID YOU LAST DRINK? ____ . WHAT DID YOU LAST DRINK? ____ . NAME OF PERSON DRIVING YOU HOME? ____ . DO YOU HAVE ANY OTHER QUESTIONS OR CONCERNS NO . VITAL SIGNS WT 191.6 LBS, HT 66 IN, BMI 30.92 INDEX, BP 124/85 MM HG, HR 69 /MIN, RR 18 /MIN, TEMP 96.8 F, OXYGEN SAT % 94%, NA INITIALS SC 13:19, REVIEWED BY: BV. EXAMINATION GENERAL EXAMINATION: GENERAL APPEARANCE: ALERT,NO DISTRESS. PSYCH CONSTRICTED. HEENT: NORMOCEPHALIC,PERRLA. NECK:NO LYMPHADENOPATHY. LUNGS: LUNG SOUNDS ARE CLEAR. HEART: HEART RATE REGULAR. ABDOMEN: DISTENDED. ASSESSMENTS SACROILIITIS, NOT ELSEWHERE CLASSIFIED - M46.1 (PRIMARY) TREATMENT SACROILIITIS, NOT ELSEWHERE CLASSIFIED CONTINUE TIZANIDINE HCL TABLET, 4 MG, 1 TABLET NEEDED, ORALLY NEEDED FOR SPASMS AND PAIN, BEFORE BEDTIME CONTINUE GABAPENTIN TABLET, 600 MG, 1, ORALLY, THREE TIMES A DAY CONTINUE MELOXICAM TABLET, 15 MG, 1 TABLET, ORALLY, DAILY REFERRAL TO:[facility] (P)OTOLARYNGOLOGY REASON:VERTIGO,RINGING IN RIGHT EAR,FREQUENT FALLS PROCEDURE CODES FA211 ESTABILISHED PATIENT [facility] CHARGE DISPOSITION & COMMUNICATION FOLLOW UP 10 WKS ELECTRONICALLY SIGNED BY BARBARA HEARD ON 09/24/2018 AT 03:54 PM EDT DISCLAIMER : THIS IS A VISIT SUMMARY EXTRACTED FROM THE [employer] CHART. IT IS NOT A COPY OF THE [employer] PROGRESS NOTE. DARLIN
== END ==
LOC: M PAIN 13:00
PROVIDERS: ATTEND Nurse Practitioner Family
DX: M46.1 Sacroiliitis, not elsewhere classified (principal); I10 Essential (primary) hypertension; G43.109 Migraine with aura, not intractable, without status migrainosus; H10.45 Other chronic allergic conjunctivitis; E78.5 Hyperlipidemia, unspecified; E11.9 Type 2 diabetes mellitus without complications; N45.1 Epididymitis; Z87.891 Personal history of nicotine dependence; Z79.84 Long term (current) use of oral hypoglycemic drugs; Z79.1 Long term (current) use of non-steroidal anti-inflammatories (NSAID); Z79.899 Other long term (current) drug therapy; Z88.6 Allergy status to analgesic agent

== ENCOUNTER → 2018-09-13 | Outpatient (REF) | payer OTHER ==
[~2018-09-13] MED LIST changes: -ACET-716 PO; +ACET30TAB PO; +CITA-230 PO; -CITA20TA7 PO; -HYDR-2541 PO; -HYDR-3715 PO; +HYDR25TAB PO; +NORCOTAB PO
[2018-09-20 00:07] LABS: ALPHA 1 ANTITRYPSIN 189 mg/dL (90-200); CERULOPLASMIN 36.7 mg/dL (16.0-31.0); HCV RNA (INTERNATIONAL UNITS) 10189000 IU/mL (.); HEPATITIS C QUANTITATION See Final Results IU/mL (.); HEPATITIS C VIRUS GENOTYPE 1a (.); LIVER-KIDNEY MICROSOMAL ABY <20.1 Units (0.0-20.0)
== END ==
LOC: M LABDRAW1 14:47
PROVIDERS: ATTEND Student in an Organized Health Care Education/Training Program
DX: R74.0 Nonspecific elevation of levels of transaminase and lactic acid dehydrogenase [LDH] (principal); B18.2 Chronic viral hepatitis C

== ENCOUNTER → 2018-09-20 | Outpatient (REF) | payer OTHER ==
[~2018-09-20] MED LIST changes: +ACET-716 PO; -ACET30TAB PO; -CITA-230 PO; +CITA20TA7 PO; +HYDR-2541 PO; +HYDR-3715 PO; -HYDR25TAB PO; -NORCOTAB PO
[2018-09-20 16:18] LABS: HEMATOCRIT 42.1 % (42.0-52.0); MEAN CORPUSCULAR HEMOGLOBIN 32.9 pg (27.0-33.0); MEAN CORPUSCULAR HGB CONC 33.3 g/dl (32.0-36.5); MEAN CORPUSCULAR VOLUME 98.8 fl (80.0-96.0); PLATELET COUNT, AUTOMATED 188 10^3/uL (150-450); RED BLOOD COUNT 4.26 10^6/uL (4.30-6.10); WHITE BLOOD COUNT 6.3 10^3/uL (4.0-10.0)
[2018-09-20 16:43] LABS: ALBUMIN 3.5 GM/DL (3.2-5.2); ALT/SGPT 156 U/L (12-78); BILIRUBIN,TOTAL 0.5 MG/DL (0.2-1.0); BLOOD UREA NITROGEN 15 MG/DL (7-18); CALCIUM LEVEL 8.9 MG/DL (8.5-10.1); CARBON DIOXIDE LEVEL 24 MEQ/L (21-32); CHLORIDE LEVEL 110 MEQ/L (98-107); CREATININE FOR GFR 0.79 MG/DL (0.70-1.30); GLOMERULAR FILTRATION RATE > 60.0 (>56); GLUCOSE, FASTING 168 MG/DL (70-100); POTASSIUM SERUM 4.1 MEQ/L (3.5-5.1); SODIUM LEVEL 141 MEQ/L (136-145); TOTAL PROTEIN 7.6 GM/DL (6.4-8.2)
[2018-09-21 10:12] LABS: HEPATITIS B SURFACE ANTIBODY NEGATIVE (POSITIVE)
[2018-09-21 10:23] LABS: HEPATITIS B SURFACE ANTIGEN NEGATIVE (NEGATIVE)
[2018-09-25 08:10] LABS: HEPATITIS A IgG TOTAL Positive (Negative)
[2018-09-26 14:26] LABS: HEPATITIS C VIRUS GENOTYPE 1a (.)
== END ==
LOC: M LABDRAW1 14:04
PROVIDERS: ATTEND Student in an Organized Health Care Education/Training Program
DX: B18.2 Chronic viral hepatitis C (principal)

== ENCOUNTER → 2018-09-24 | Outpatient (CLI) | payer OTHER ==
--- NOTE | 2018-09-24 09:03 | REP ---
MRCP without contrast: History: Abnormal findings on diagnostic imaging. Biliary colic. Possible cirrhosis. Comparison CT study August 31, 2018. Technique: Axial and coronal T2-weighted scans are obtained. MRCP acquisitions are performed and maximal intensity projection images are generated. MRCP findings: The intrahepatic bile ducts are not dilated. Common bile duct and main pancreatic duct are normal in caliber. There is a subcentimeter cyst in the lower pole of the right kidney. There is no evidence of hepatic or pancreatic cysts. Scattered upper abdominal peripancreatic and portacaval lymph nodes are seen unchanged from prior CT studies. No filling defect is observed in the gallbladder by MRCP images. The stone is seen in the neck of the gallbladder on the CT study. There is no evidence of choledocholithiasis. Impression: No evidence of biliary or pancreatic ductal dilation. Electronically Signed by Wang Laureano MD 09/24/2018 05:29 P
== END ==
LOC: M RAD 07:03
PROVIDERS: ATTEND Internal Medicine Gastroenterology
DX: Z87.19 Personal history of other diseases of the digestive system (principal)

== ENCOUNTER → 2018-10-25 | Outpatient (CLI) | payer OTHER ==
--- NOTE | 2018-11-17 01:35 | ECWPNPC ---
PATIENT NAME: ALLYN PERERA : 1960 GENDER: MALE VISIT DATE: 10/25/2018 DISCHARGE DATE: 10/25/18 1324 VISIT LOCKED DATE TIME: PHYSICIAN: ALFA CARRASCO RESOURCE: ALFA CARRASCO REASON FOR APPOINTMENT 1. NECK HISTORY OF PRESENT ILLNESS HISTORY OF PRESENT ILLNESS: HERE FOR F/U OF CHRONIC LOW BACK PAIN WITH RADIATION INTO BILATERAL HIPS AND GROIN.HAS RESPONDED WELL TO BILATERAL SIJ IN PAST WITH SEVERAL MONTHS RELIEF OF LOW BACK AND GROIN PAIN.RATING PAIN VAS 4/10. PAIN THE PATIENT DESCRIBES THE PAIN... FALL RISK SCREENING: SCREENING :NO FALLS REPORTED IN THE LAST YEAR CURRENT MEDICATIONS TAKING OMEPRAZOLE 20 MG CAPSULE DELAYED RELEASE 1 CAPSULE ORALLY BID TAKING MAVYRET 100-40 MG TABLET 3 TABLETS ORALLY ONCE A DAY TAKING ZYRTEC ALLERGY 10 MG TABLET 1 TABLET ORALLY ONCE A DAY NEEDED TAKING FLONASE 50 MCG/ACT SUSPENSION 1 SPRAY IN EACH NOSTRIL NASALLY ONCE A DAY TAKING METHOCARBAMOL 500 MG TABLET 1.5 TABLETS ORALLY Q12H PRN TAKING TIZANIDINE HCL 4 MG TABLET 1 TABLET NEEDED ORALLY NEEDED FOR SPASMS AND PAIN BEFORE BEDTIME TAKING GABAPENTIN 600 MG TABLET 1 ORALLY THREE TIMES A DAY TAKING CETIRIZINE HCL 10 MG TABLET 1 TABLET ORALLY ONCE A DAY TAKING BLOOD GLUCOSE METER - KIT 1 METER DX:E11.65 TWICE DAILY TAKING BD LANCET ULTRAFINE 33G - MISCELLANEOUS 1 LANCET INTRADERMALLY TWICE DAILY DX:E11.65 TAKING BLOOD GLUCOSE TEST STRIP - STRIP 1 STRIP IN VITRO DX:E11.65 TWICE DAILY TAKING ALCOHOL PREP PAD 70 % PAD 1 TOPICALLY TWICE DAILY DX:E11.65 TAKING GLIMEPIRIDE 2 MG TABLET 1 TABLET WITH BREAKFAST OR THE FIRST MAIN MEAL OF THE DAY ORALLY ONCE A DAY TAKING AMLODIPINE BESYLATE 10 MG TABLET 1 TABLET ORALLY ONCE A DAY TAKING METOPROLOL TARTRATE 100 MG TABLET 1 TABLET WITH FOOD ORALLY TWICE A DAY TAKING GLIMEPIRIDE 1 MG TABLET 1 TABLET WITH BREAKFAST OR THE FIRST MAIN MEAL OF THE DAY ORALLY ONCE A DAY ALONG WITH THE 2 MG GLIMEPIRIDE TABLET; MDD: 3 MG TAKING BUPROPION HCL ER (SR) 150 MG TABLET EXTENDED RELEASE 12 HOUR 1 TABLET ORALLY TWICE A DAY TAKING METFORMIN HCL 1000 MG TABLET 1 TABLET WITH MEALS ORALLY BID TAKING LISINOPRIL 20 MG TABLET TAKE ONE TABLET BY MOUTH EVERY DAY TAKING SUCRALFATE 1 GM TABLET 1 TABLET ON AN EMPTY STOMACH ORALLY FOUR TIMES DAILY DISCONTINUED AMLODIPINE BESYLATE 10 MG TABLET TAKE ONE TABLET BY MOUTH EVERY DAY , NOTES: DUPLICATE MEDICATION LIST REVIEWED AND RECONCILED WITH THE PATIENT PAST MEDICAL HISTORY HTN SHORT'S PALSY UNSPECIFIED ESSENTIAL HYPERTENSION NONDEPENDENT TOBACCO USE DISORDER SMOKING MIGRAINE WITHOUT AURA, WITH INTRACTABLE MIGRAINE, SO STATED, WITHOUT MENTION OF STATUS MIGRAINOSUS ALLERGIC CONJUNCTIVITIS HYPERLIPIDEMIA ESSENTIAL HYPERTENSION ASCVD10 (2016)- 11.5% DIEBETIC TYPE 2 EPIDIDYMITIS HEPATITIS C ALLERGIES ASPIR-81: VOMITING - SIDE EFFECTS SURGICAL HISTORY RIGHT EPIDIDYMAL CYST REMOVAL 07/08/[address] ROBIN 08/2016 LEFT INGUINAL HERNIA 02/10/2017 PRIFORMIS MUSCLE INJECTION -RIGHT-[facility] 12/28/2016 BILATIERAL INGUINAL HERNIA REPAIR 02/10/17 RIGHT HERNIA REPAIR 06/2017 FAMILY HISTORY FATHER: , DIAGNOSED WITH HYPERTENSION MOTHER: , DIABETES SIBLINGS: ALIVE DAUGHTER(S): ALIVE 1 BROTHER(S) , 2 SISTER(S) . 2DAUGHTER(S) . SOCIAL HISTORY GENERAL: TOBACCO USE ARE YOU A:FORMER SMOKER HOW LONG HAS IT BEEN SINCE YOU LAST SMOKED?6-12 MONTHS SMOKING CESSATION INFORMATION GIVEN01/01/2018 HIV / HEP-C SCREENING HIV TEST OFFERED TO PATIENT:YES DATE OFFERED:10/06/2016 TEST ACCEPTED:NO HEP-C TEST OFFERED TO PATIENT:YES DATE OFFERED:10/06/2016 REASON:PATIENT DECLINED TEST ACCEPTED:NO REASON:PATIENT DECLINED OTHERS AT HOME: GIRLFRIEND. EDUCATION LEVEL OF EDUCATION:NOT FINISHED COLLEGE DIET: REGULAR. LANGUAGE CITIZEN OF [place]. DOMESTIC VIOLENCE DO YOU FEEL SAFE IN YOUR ENVIRONMENT?YES NEW PATIENT PAIN DIARY PATIENT DESCRIBES PAIN :ACHING, BURNING, SHARP, SORE FROM 0-10, WHAT LEVEL IS YOUR PAIN TODAY?2.5 BMI CARE GOAL FOLLOW-UP ABOVE NORMAL BMI FOLLOW-UPLIFESTYLE EDUCATION REGARDING DIET RECREATIONAL DRUG USE DRUG USE?NO EXERCISE: NO REGULAR EXERCISE. LEARNING BARRIERS / SPECIAL NEEDS CHANGE FROM LAST VISIT?YES BARRIERS TO LEARNING?NO HEARING IMPAIRED?NO VISION IMPAIRED?YES COGNITIVELY IMPAIRED?NO :CORRECTIVE LENSES READINESS TO LEARN?YES LEARNING PREFERENCES?NO LEARNING CAPABILITIES PRESENT?YES EMOTIONAL BARRIERS?NO SPECIAL DEVICES?NO EARLY HEAD START DIRECTOR NEEDED?NO PAIN CLINIC PFS, CLERGY, PUBLIC HEALTH REFERRALS PFS REFERRAL NEEDED?NO CLERGY REFERRAL NEEDED?NO PUBLIC HEALTH REFERRAL NEEDED?NO WAS THE PROVIDER NOTIFIED OF ANY PERTINENT INFO?YES N/A HAS THE PATIENT BEEN EDUCATED REGARDING HIS/HER PLAN OF CARE?YES HAS THE PATIENT BEEN EDUCATED REGARDING PAIN, THE RISK FOR PAIN, THE IMPORTANCE OF EFFECTIVE PAIN MANAGEMENT, AND THE PAIN ASSESSMENT PROCESS?YES LATEX QUESTIONNAIRE LATEX ALLERGY : HAVE YOU EVER DEVELOPED ANY TYPE OF REACTION AFTER HANDLING LATEX PRODUCTS SUCH RUBBER GLOVES, CONDOMS, DIAPHRAGMS, BALLOONS, SOCKS, OR UNDERWEAR?NO LATEX ALLERGY : HAVE YOU EVER DEVELOPED ANY TYPE OF REACTION DURING OR AFTER DENTAL APPOINTMENT, VAGINAL/RECTAL EXAMINATION, SURGICAL PROCEDURE, OR ANY OTHER EXPOSURE?NO DATE ASKED : 09/11/2018 LATEX RISK : HAVE YOU EVER HAD ANY DIFFICULTY BREATHING OR HIVES AFTER EATING OR HANDLING ANY FRUITS, OR VEGETABLES; SUCH KIWI, BANANAS, STONE FRUITS, OR CHESTNUTSNO LATEX RISK : DO YOU HAVE A PREVIOUS PERSONAL HISTORY OF MORE THAN NINE SURGERIES, SPINA BIFIDA, OR REPEATED CATHERTIZATIONS? NO LATEX RISK : ARE YOU FREQUENTLY EXPOSED TO LATEX PRODUCTS IN YOUR OCCUPATION?NO CAFFEINE CAFFEINE USE?YES ADVANCE DIRECTIVE ADVANCE DIRECTIVE DISCUSSED WITH PATIENT:YES YES, PT STATES HCP IS TANNER PERERA - DAUGHTER [phone] SABIANIST [id number] GNOSTICIST MARITAL STATUS: SINGLE. 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 SEXUAL HX HAD SEX IN THE LAST 12 MONTHS (VAGINAL, ORAL, OR ANAL)?YES WITHWOMEN ONLY PREVENTION STRATEGIES DISCUSSED:CONDOMS USE PROTECTION?NO HAVE YOU EVER HAD AN STD?NO PT STATES HE IS CUTTING DOWN ON SMOKING ALOT DOWN TO 2 DAILY11/27/17 1045 REVIEWED WITH PT. ADLREVIEWED WITH PT 03/01/18 1450 LASREVIEWED WITH PT 04/30/18 1106 BVREVIEWED WITH PATIENT 07/19/18 1058 JSREVIEWED WTIH PT 09/11/18 1324 BVREVIEWED WITH PT 10/25/18 1300 LAS. HOSPITALIZATION/MAJOR DIAGNOSTIC PROCEDURE HYPOTENSIVE AND HYPERGLYCEMIA 08/2018 REVIEW OF SYSTEMS REVIEWED BY: PROVIDER: ALFA JIMENEZ . CONSTITUTIONAL: ANY CHANGE IN YOUR MEDICAL CONDITION? NO . CHILLS NO . FEVER NO . INFECTION: DO YOU HAVE NEW INFECTIONS? NO . DO YOU HAVE HISTORY OF MRSA? NO . MUSCULOSKELETAL: ANY NEW PATTERNS OF PAIN OR NUMBNESS? PT REPORTS INTERMITTANT PAIN LOW ABDOMEN. LOWER BACK PAIN IS RET;URNING . GASTROENTEROLOGY: ANY NEW CHANGE IN BOWEL CONTROL? NO . GENITOURINARY: ANY NEW CHANGE IN BLADDER CONTROL? NO . IS THERE A CHANCE YOU COULD BE ? NO . HEMATOLOGY/LYMPH: DO YOU TAKE ANY BLOOD THINNERS? (FOR EXAMPLE- COUMADIN, PLAVIX, AGGRENOX, PLATEL, PRADAXA, OR XARELTO) NO . WHEN WAS YOUR LAST DOSE? DATE: TIME: . NEUROLOGY: HAVE YOU FALLEN IN THE PAST 12 MONTHS? YES . ANY NEW EXTREMITY NUMBNESS OR WEAKNESS? NO . CARDIOLOGY: DO YOU HAVE A PACEMAKER OR DEFIBRILLATOR? NO . RESPIRATORY: HAVE YOU BEEN SICK IN THE PAST WEEK? NO PT STATES HE HAS BEEN NAUSEATED LATELY, SAW HIS PRIMARY FOR THIS. . FEVER NO . FLU LIKE SYMPTOMS? NO . COUGH NO . INTEGUMENTARY: DO YOU HAVE ANY RASHES OR OPEN SORES? NO . ALLERGIC/IMMUNO: ARE YOU ALLERGIC TO IV DYE? NO . ANY NEW ALLERGIES? NO . PSYCHIATRIC: DO YOU HAVE THOUGHTS OF HURTING YOURSELF OR SOMEONE ELSE? NO . ARE YOU ABUSED, NEGLECTED, OR IN AN UNSAFE ENVIRONMENT? NO . ENDOCRINOLOGY: ARE YOU DIABETIC? NO . OTHER: DO YOU NEED ANY PRESCRIPTIONS? NO . IF YES, PLEASE LIST: ____ . ANY NEW PROBLEMS WITH YOUR MEDICATIONS? NO . WHEN DID YOU LAST EAT? ____ . WHEN DID YOU LAST DRINK? ____ . WHAT DID YOU LAST DRINK? ____ . NAME OF PERSON DRIVING YOU HOME? ____ . DO YOU HAVE ANY OTHER QUESTIONS OR CONCERNS WOULD LIKE TO DISCUSS BACK INJECTIONS . VITAL SIGNS WT 198.8 LBS, HT 66 IN, BMI 32.08 INDEX, BP 154/95 MM HG, HR 67 /MIN, RR 18 /MIN, TEMP 97.3 F, OXYGEN SAT % 97%, SAFE IN ENV? (Y/N) YES, REVIEWED BY: MARIBELL. EXAMINATION GENERAL EXAMINATION: LUNGS:LUNG SOUNDS ARE CLEAR. HEART:HEART RATE REGULAR. MUSCULOSKELETAL:*, MUSCLE STRENGTH TESTING 5/5 BILATERAL LOWER EXTREMITIES.SPECIFIC POINT TENDERNESS OVER BILAT SIJ. DIAGNOSTIC:MRI L/S SPINE 07-06-16-REVIEWED.. ASSESSMENTS SACROILIITIS, NOT ELSEWHERE CLASSIFIED - M46.1 (PRIMARY) TREATMENT SACROILIITIS, NOT ELSEWHERE CLASSIFIED NOTES: CHERRIE. IVETH. PROCEDURE CODES FA211 ESTABILISHED PATIENT [facility] CHARGE DISPOSITION & COMMUNICATION FOLLOW UP POST (REASON: BILAT. SIJ) ELECTRONICALLY SIGNED BY BARBARA HEARD ON 11/14/2018 AT 04:13 PM EDT DISCLAIMER : THIS IS A VISIT SUMMARY EXTRACTED FROM THE [employer] CHART. IT IS NOT A COPY OF THE [employer] PROGRESS NOTE. DARLIN
== END ==
LOC: M PAIN 13:00
PROVIDERS: ATTEND Nurse Practitioner Family
DX: M46.1 Sacroiliitis, not elsewhere classified (principal); G89.29 Other chronic pain; I10 Essential (primary) hypertension; G43.019 Migraine without aura, intractable, without status migrainosus; E78.5 Hyperlipidemia, unspecified; E11.9 Type 2 diabetes mellitus without complications; Z86.19 Personal history of other infectious and parasitic diseases; Z87.891 Personal history of nicotine dependence; Z88.6 Allergy status to analgesic agent; Z79.84 Long term (current) use of oral hypoglycemic drugs; Z79.899 Other long term (current) drug therapy

== ENCOUNTER → 2018-11-14 | Outpatient (REF) | payer OTHER ==
[2018-11-14 17:09] LABS: HEMOGLOBIN A1c 7.1 %
[2018-11-14 17:10] LABS: BLOOD UREA NITROGEN 24 MG/DL (7-18); CALCIUM LEVEL 9.9 MG/DL (8.5-10.1); CARBON DIOXIDE LEVEL 25 MEQ/L (21-32); CHLORIDE LEVEL 107 MEQ/L (98-107); CREATININE FOR GFR 0.89 MG/DL (0.70-1.30); GLOMERULAR FILTRATION RATE > 60.0 (>56); GLUCOSE, FASTING 143 MG/DL (70-100); POTASSIUM SERUM 4.1 MEQ/L (3.5-5.1); SODIUM LEVEL 141 MEQ/L (136-145)
== END ==
LOC: M LABDRAW1 15:41
PROVIDERS: ATTEND Student in an Organized Health Care Education/Training Program
DX: E11.21 Type 2 diabetes mellitus with diabetic nephropathy (principal); R60.0 Localized edema

== ENCOUNTER 2018-11-26 14:17 | Emergency (ER) | payer OTHER ==
[~2018-11-26] VITALS: Ht 170.2 cm; Wt 88.6 kg
[2018-11-26 14:17] VITALS: BP 133/86
== END 2018-11-26 16:30 | disposition left against medical advice (07) ==
LOC: M ED 14:17
DX: Z53.29 Procedure and treatment not carried out because of patient's decision for other reasons (principal)

== ENCOUNTER → 2018-11-27 | Outpatient (CLI) | payer OTHER ==
--- NOTE | 2018-11-27 16:40 | REP ---
Abdomen two views History: Epigastric pain A small amount of air is present in the intestine. There are no air-fluid levels or dilated loops of intestine. There is no pneumoperitoneum. Impression: Nonspecific bowel gas pattern. Electronically Signed by Vick Kaur MD 11/27/2018 04:31 P
== END ==
LOC: M RAD 15:50
PROVIDERS: ATTEND Student in an Organized Health Care Education/Training Program
DX: R10.13 Epigastric pain (principal)

== ENCOUNTER → 2018-12-04 | Outpatient (CLI) | payer OTHER ==
[~2018-12-04] MED LIST changes: +BUPIVACAINE HCL 0.25% 30 ML VIAL As Ordered ONE; +ISOVUE-M 300 61% 15ML VIAL (Q9967) As Ordered ONE; +LIDOCAINE 1% SDV INJ 30 ML VIAL As Ordered ONE; +TRIAMCINOLONE ACETONIDE SUSP 40 MG/ML VIAL (J3301) As Ordered ONE; +diazePAM 5 MG TAB As Ordered ONE; +oxyCODONE 5MG TAB As Ordered ONE
--- NOTE | 2018-12-04 14:07 | REP ---
BILATERAL SI JOINT SERIES: FOUR VIEWS. HISTORY: Bilateral SI joint injection for pain. 46 seconds of fluoroscopy time is reported. A sequence of four, last image hold fluoroscopically-obtained spot radiographs of the SI joints document various needle positions and contrast injections associated with bilateral SI joint injection procedure. Electronically Signed by Wang Laureano MD 12/04/2018 04:06 P
--- NOTE | 2018-12-17 00:51 | ECWPNPC ---
PATIENT NAME: ALLYN PERERA : 1960 GENDER: MALE VISIT DATE: 12/04/2018 DISCHARGE DATE: 12/04/18 1251 VISIT LOCKED DATE TIME: PHYSICIAN: KAIRA MAYER MD RESOURCE: KIARA MAYER MD REASON FOR APPOINTMENT 1. BILAT SIIva HISTORY OF PRESENT ILLNESS HISTORY OF PRESENT ILLNESS: PAIN THE PATIENT DESCRIBES THE PAIN... FALL RISK SCREENING: SCREENING :NO FALLS REPORTED IN THE LAST YEAR CURRENT MEDICATIONS TAKING OMEPRAZOLE 20 MG CAPSULE DELAYED RELEASE 1 CAPSULE ORALLY BID, NOTES: 12/03/18 TAKING MAVYRET 100-40 MG TABLET 3 TABLETS ORALLY ONCE A DAY, NOTES: 12/03/18 TAKING ZYRTEC ALLERGY 10 MG TABLET 1 TABLET ORALLY ONCE A DAY NEEDED, NOTES: 12/03/18 TAKING FLONASE 50 MCG/ACT SUSPENSION 1 SPRAY IN EACH NOSTRIL NASALLY ONCE A DAY, NOTES: 12/03/18 TAKING TIZANIDINE HCL 4 MG TABLET 1 TABLET NEEDED ORALLY NEEDED FOR SPASMS AND PAIN BEFORE BEDTIME, NOTES: 12/03/18 TAKING GABAPENTIN 600 MG TABLET 1 ORALLY THREE TIMES A DAY, NOTES: 12/03/18 TAKING CETIRIZINE HCL 10 MG TABLET 1 TABLET ORALLY ONCE A DAY, NOTES: 12/03/18 TAKING BLOOD GLUCOSE METER - KIT 1 METER DX:E11.65 TWICE DAILY, NOTES: 12/03/18 TAKING BD LANCET ULTRAFINE 33G - MISCELLANEOUS 1 LANCET INTRADERMALLY TWICE DAILY DX:E11.65 TAKING BLOOD GLUCOSE TEST STRIP - STRIP 1 STRIP IN VITRO DX:E11.65 TWICE DAILY TAKING ALCOHOL PREP PAD 70 % PAD 1 TOPICALLY TWICE DAILY DX:E11.65 TAKING AMLODIPINE BESYLATE 10 MG TABLET 1 TABLET ORALLY ONCE A DAY, NOTES: 12/04/18 AM TAKING METOPROLOL TARTRATE 100 MG TABLET 1 TABLET WITH FOOD ORALLY TWICE A DAY, NOTES: 12/04/18 AM TAKING BUPROPION HCL ER (SR) 150 MG TABLET EXTENDED RELEASE 12 HOUR 1 TABLET ORALLY TWICE A DAY, NOTES: 12/03/18 TAKING LISINOPRIL 20 MG TABLET TAKE ONE TABLET BY MOUTH EVERY DAY , NOTES: 12/03/18 TAKING GLIMEPIRIDE 2 MG TABLET 1 TABLET WITH BREAKFAST OR THE FIRST MAIN MEAL OF THE DAY ORALLY BID, NOTES: 12/03/18 TAKING METFORMIN HCL ER 500 MG TABLET EXTENDED RELEASE 24 HOUR 1 TABLET WITH EVENING MEAL ORALLY ONCE A DAY, NOTES: 12/03/18 NOT-TAKING METHOCARBAMOL 500 MG TABLET 1.5 TABLETS ORALLY Q12H PRN NOT-TAKING SUCRALFATE 1 GM TABLET 1 TABLET ON AN EMPTY STOMACH ORALLY FOUR TIMES DAILY DISCONTINUED AMITRIPTYLINE HCL 100 MG TABLET 1 TABLET AT BEDTIME ORALLY ONCE A DAY MEDICATION LIST REVIEWED AND RECONCILED WITH THE PATIENT PAST MEDICAL HISTORY HTN SHORT'S PALSY UNSPECIFIED ESSENTIAL HYPERTENSION NONDEPENDENT TOBACCO USE DISORDER SMOKING MIGRAINE WITHOUT AURA, WITH INTRACTABLE MIGRAINE, SO STATED, WITHOUT MENTION OF STATUS MIGRAINOSUS ALLERGIC CONJUNCTIVITIS HYPERLIPIDEMIA ESSENTIAL HYPERTENSION ASCVD10 (2016)- 11.5% DIEBETIC TYPE 2 EPIDIDYMITIS HEPATITIS C ALLERGIES ASPIR-81: VOMITING - SIDE EFFECTS SURGICAL HISTORY RIGHT EPIDIDYMAL CYST REMOVAL 07/08/[address] ROBIN 08/2016 LEFT INGUINAL HERNIA 02/10/2017 PRIFORMIS MUSCLE INJECTION -RIGHT-[facility] 12/28/2016 BILATIERAL INGUINAL HERNIA REPAIR 02/10/17 RIGHT HERNIA REPAIR 06/2017 FAMILY HISTORY FATHER: , DIAGNOSED WITH HYPERTENSION MOTHER: , DIABETES SIBLINGS: ALIVE DAUGHTER(S): ALIVE 1 BROTHER(S) , 2 SISTER(S) . 2DAUGHTER(S) . SOCIAL HISTORY GENERAL: TOBACCO USE ARE YOU A:FORMER SMOKER HOW LONG HAS IT BEEN SINCE YOU LAST SMOKED?6-12 MONTHS SMOKING CESSATION INFORMATION GIVEN01/01/2018 HIV / HEP-C SCREENING HIV TEST OFFERED TO PATIENT:YES DATE OFFERED:10/06/2016 TEST ACCEPTED:NO HEP-C TEST OFFERED TO PATIENT:YES DATE OFFERED:10/06/2016 REASON:PATIENT DECLINED TEST ACCEPTED:NO REASON:PATIENT DECLINED OTHERS AT HOME: GIRLFRIEND. EDUCATION LEVEL OF EDUCATION:NOT FINISHED COLLEGE DIET: REGULAR. LANGUAGE INDONESIAN. DOMESTIC VIOLENCE DO YOU FEEL SAFE IN YOUR ENVIRONMENT?YES NEW PATIENT PAIN DIARY PATIENT DESCRIBES PAIN :ACHING, BURNING, SHARP, SORE FROM 0-10, WHAT LEVEL IS YOUR PAIN TODAY?2.5 BMI CARE GOAL FOLLOW-UP ABOVE NORMAL BMI FOLLOW-UPLIFESTYLE EDUCATION REGARDING DIET RECREATIONAL DRUG USE DRUG USE?NO EXERCISE: NO REGULAR EXERCISE. LEARNING BARRIERS / SPECIAL NEEDS CHANGE FROM LAST VISIT?YES BARRIERS TO LEARNING?NO HEARING IMPAIRED?NO VISION IMPAIRED?YES COGNITIVELY IMPAIRED?NO :CORRECTIVE LENSES READINESS TO LEARN?YES LEARNING PREFERENCES?NO LEARNING CAPABILITIES PRESENT?YES EMOTIONAL BARRIERS?NO SPECIAL DEVICES?NO INSTITUTIONAL RESEARCH COORDINATOR NEEDED?NO PAIN CLINIC PFS, CLERGY, PUBLIC HEALTH REFERRALS PFS REFERRAL NEEDED?NO CLERGY REFERRAL NEEDED?NO PUBLIC HEALTH REFERRAL NEEDED?NO WAS THE PROVIDER NOTIFIED OF ANY PERTINENT INFO?YES N/A HAS THE PATIENT BEEN EDUCATED REGARDING HIS/HER PLAN OF CARE?YES HAS THE PATIENT BEEN EDUCATED REGARDING PAIN, THE RISK FOR PAIN, THE IMPORTANCE OF EFFECTIVE PAIN MANAGEMENT, AND THE PAIN ASSESSMENT PROCESS?YES LATEX QUESTIONNAIRE LATEX ALLERGY : HAVE YOU EVER DEVELOPED ANY TYPE OF REACTION AFTER HANDLING LATEX PRODUCTS SUCH RUBBER GLOVES, CONDOMS, DIAPHRAGMS, BALLOONS, SOCKS, OR UNDERWEAR?NO LATEX ALLERGY : HAVE YOU EVER DEVELOPED ANY TYPE OF REACTION DURING OR AFTER DENTAL APPOINTMENT, VAGINAL/RECTAL EXAMINATION, SURGICAL PROCEDURE, OR ANY OTHER EXPOSURE?NO DATE ASKED : 09/11/2018 LATEX RISK : HAVE YOU EVER HAD ANY DIFFICULTY BREATHING OR HIVES AFTER EATING OR HANDLING ANY FRUITS, OR VEGETABLES; SUCH KIWI, BANANAS, STONE FRUITS, OR CHESTNUTSNO LATEX RISK : DO YOU HAVE A PREVIOUS PERSONAL HISTORY OF MORE THAN NINE SURGERIES, SPINA BIFIDA, OR REPEATED CATHERTIZATIONS? NO LATEX RISK : ARE YOU FREQUENTLY EXPOSED TO LATEX PRODUCTS IN YOUR OCCUPATION?NO CAFFEINE CAFFEINE USE?YES ADVANCE DIRECTIVE ADVANCE DIRECTIVE DISCUSSED WITH PATIENT:YES YES, PT STATES HCP IS TANNER PERERA - DAUGHTER [phone] LATTER-DAY [id number] ZOROASTRIAN MARITAL STATUS: SINGLE. 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 SEXUAL HX HAD SEX IN THE LAST 12 MONTHS (VAGINAL, ORAL, OR ANAL)?YES WITHWOMEN ONLY PREVENTION STRATEGIES DISCUSSED:CONDOMS USE PROTECTION?NO HAVE YOU EVER HAD AN STD?NO PT STATES HE IS CUTTING DOWN ON SMOKING ALOT DOWN TO 2 DAILY11/27/17 1045 REVIEWED WITH PT. ADLREVIEWED WITH PT 03/01/18 1450 LASREVIEWED WITH PT 04/30/18 1106 BVREVIEWED WITH PATIENT 07/19/18 1058 JSREVIEWED WTIH PT 09/11/18 1324 BVREVIEWED WITH PT 10/25/18 1300 LAS. HOSPITALIZATION/MAJOR DIAGNOSTIC PROCEDURE HYPOTENSIVE AND HYPERGLYCEMIA 08/2018 REVIEW OF SYSTEMS REVIEWED BY: PROVIDER: . CONSTITUTIONAL: ANY CHANGE IN YOUR MEDICAL CONDITION? NO . CHILLS NO . FEVER NO . INFECTION: DO YOU HAVE NEW INFECTIONS? NO . DO YOU HAVE HISTORY OF MRSA? NO . MUSCULOSKELETAL: ANY NEW PATTERNS OF PAIN OR NUMBNESS? YES . GASTROENTEROLOGY: ANY NEW CHANGE IN BOWEL CONTROL? NO . GENITOURINARY: ANY NEW CHANGE IN BLADDER CONTROL? NO . IS THERE A CHANCE YOU COULD BE ? NO . HEMATOLOGY/LYMPH: DO YOU TAKE ANY BLOOD THINNERS? (FOR EXAMPLE- COUMADIN, PLAVIX, AGGRENOX, PLATEL, PRADAXA, OR XARELTO) NO . WHEN WAS YOUR LAST DOSE? DATE: TIME: . NEUROLOGY: HAVE YOU FALLEN IN THE PAST 12 MONTHS? NO . ANY NEW EXTREMITY NUMBNESS OR WEAKNESS? NO . CARDIOLOGY: DO YOU HAVE A PACEMAKER OR DEFIBRILLATOR? NO . RESPIRATORY: HAVE YOU BEEN SICK IN THE PAST WEEK? NO . FEVER NO . FLU LIKE SYMPTOMS? NO . COUGH NO . INTEGUMENTARY: DO YOU HAVE ANY RASHES OR OPEN SORES? NO . ALLERGIC/IMMUNO: ARE YOU ALLERGIC TO IV DYE? NO . ANY NEW ALLERGIES? NO . PSYCHIATRIC: DO YOU HAVE THOUGHTS OF HURTING YOURSELF OR SOMEONE ELSE? NO . ARE YOU ABUSED, NEGLECTED, OR IN AN UNSAFE ENVIRONMENT? NO . ENDOCRINOLOGY: ARE YOU DIABETIC? YES, FS 118 THIS AM . OTHER: DO YOU NEED ANY PRESCRIPTIONS? NO . IF YES, PLEASE LIST: ____ . ANY NEW PROBLEMS WITH YOUR MEDICATIONS? NO . WHEN DID YOU LAST EAT? 12/03/181999 . WHEN DID YOU LAST DRINK? 12/04/18 08 . WHAT DID YOU LAST DRINK? WATER . NAME OF PERSON DRIVING YOU HOME? KRIS . DO YOU HAVE ANY OTHER QUESTIONS OR CONCERNS NOPLEASE GET A HOLD OF ALFA CARRASCO ABOUT PAIN MEDS FOR TODAY AND NEED SOME KIND OF STRONGER MEDS FOR LUMBAR PAIN . VITAL SIGNS WT 200.0 LBS, HT 66 IN, BMI 32.28 INDEX, BP 179/96 MM HG, HR 64 /MIN, RR 18 /MIN, TEMP 97.9 F, OXYGEN SAT % 98%, NA INITIALS AW 1051, REVIEWED BY: ERIK. ASSESSMENTS SACROILIITIS, NOT ELSEWHERE CLASSIFIED - M46.1 (PRIMARY) PROCEDURES PN SI PRE PROCEDURE DIAGNOSIS SACROILIITIS, SACROILIAC JOINT DYSFUNCTION POST PROCEDURE DIAGNOSIS SACROILIITIS, SACROILIAC JOINT DYSFUNCTION PROCEDURE BILATERAL SACROILIAC JOINT BLOCK SURGEON DR. KIARA MAYER AUTO WINDER NONE ANESTHESIA LOCAL PRE PROCEDURE NOTE PATIENT WITH HISTORY OF CHRONIC LOW BACK PAIN. I EVALUATED THE PATIENT AND REVIEWED THE CHART. I WENT OVER THE RISKS, ALTERNATIVES, AND BENEFITS ASSOCIATED WITH THIS PROCEDURE. THE PATIENT WOULD LIKE TO PROCEED AND GAVE CONSENT TO PERFORM THE PROCEDURE. THE PATIENT DENIES UNEXPLAINABLE WEIGHT LOSS, FEVER, CHILLS, OR NEW CHANGES IN URINARY OR BOWEL CONTROL DESCRIPTION OF PROCEDURE THE PATIENT WAS BROUGHT TO THE PROCEDURE ROOM AND PLACED IN THE PRONE POSITION. THE LUMBOSACRAL AREA WAS CLEANED WITH CHLORAPREP SOLUTION AND DRAPED ASEPTICALLY. THE PROCEDURE WAS DONE UNDER STERILE CONDITIONS. I CHECKED LATERALITY AND THE LEVEL WHERE THE PROCEDURE WAS GOING TO BE PERFORMED WITH THE PATIENT AND THE SUPPORTING STAFF AT THE MOMENT OF THE TIME OUT IN THE PROCEDURE ROOM. UNDER FLUOROSCOPIC GUIDANCE, TARGET POINT WAS SELECTED AT THE LOWER BORDER OF THE RIGHT AND LEFT SACROILIAC JOINT. TARGET POINT WAS SELECTED AFTER MEDIAL ROTATION AND TILT OF THE MAGNIFIER OF THE C-ARM. LIDOCAINE WAS USED TO NUMB THE SKIN AND SUBCUTANEOUS TISSUE BELOW IT. A SPINAL NEEDLE, 22-GAUGE, WAS ADVANCED UNDER FLUOROSCOPIC GUIDANCE AND FOLLOWING PATIENT FEEDBACK UNTIL THE TARGET AREA WAS TOUCHED. THE POSITION OF THE NEEDLE WAS VERIFIED WITH AP AND LATERAL VIEWS. AFTER PROPER POSITION OF THE NEEDLE WAS ACHIEVED, ISOVUE M DYE 30%, 0.25 ML, WAS INJECTED SHOWING SPREAD OF THE DYE. THEN, A SOLUTION OF 20 MG OF KENALOG WAS INJECTED IN RIGHT AND LEFT JOINT WITH 3 ML OF BUPIVACAINE 0.125%. THERE WAS NO EVIDENCE OF BLOOD, PARESTHESIA OR CEREBROSPINAL FLUID DURING THE PROCEDURE. THE PATIENT WAS SENT TO THE RECOVERY ROOM. THE PATIENT WAS MOVING THE EXTREMITIES AND DOING WELL. THERE WAS NO COMPLICATION DURING THE PROCEDURE. FLUOROSCOPY TIME WAS 46 SECONDS POST PROCEDURE NOTE THE PATIENT WILL BE SEEN IN A FOLLOW UP IN THE NEXT FEW WEEKS. INSTRUCTIONS WERE GIVEN, QUESTIONS WERE ANSWERED, AND THE PATIENT EXPRESSED UNDERSTANDING AND AGREED WITH THE PLAN. I, LUPE ALMODOVAR, DOCUMENTED THE ABOVE INFORMATION ACTING A SCRIBE FOR DR. MAYER. I HAVE REVIEWED THE ABOVE DOCUMENT, WRITTEN BY LUPE KATE AND I VERIFY THAT IT IS ACCURATE. DIAGNOSTIC IMAGING [facility] FLUORO GUIDANCE (PAIN)[id number] PROCEDURE CODES 6045F RADXPS IN END [id number] PXD [id number] INJECT SACROILIAC JOINT, MODIFIERS: 50 DISPOSITION & COMMUNICATION FOLLOW UP 3 WEEKS ELECTRONICALLY SIGNED BY KIARA MAYER MD, MD ON 12/16/2018 AT 07:18 PM EDT DISCLAIMER : THIS IS A VISIT SUMMARY EXTRACTED FROM THE [employer] CHART. IT IS NOT A COPY OF THE [employer] PROGRESS NOTE. DARLIN
== END ==
LOC: M PAIN 10:00
PROVIDERS: ATTEND Anesthesiology
DX: M46.1 Sacroiliitis, not elsewhere classified (principal); I10 Essential (primary) hypertension; E78.5 Hyperlipidemia, unspecified; G43.919 Migraine, unspecified, intractable, without status migrainosus; E11.9 Type 2 diabetes mellitus without complications; B19.20 Unspecified viral hepatitis C without hepatic coma; Z79.84 Long term (current) use of oral hypoglycemic drugs; Z79.899 Other long term (current) drug therapy; Z88.6 Allergy status to analgesic agent
CPT/HCPCS: 27096; J3301; Q9967

== ENCOUNTER → 2019-01-03 | Outpatient (CLI) | payer OTHER ==
[~2019-01-03] MED LIST changes: -BUPIVACAINE HCL 0.25% 30 ML VIAL As Ordered ONE; -ISOVUE-M 300 61% 15ML VIAL (Q9967) As Ordered ONE; -LIDOCAINE 1% SDV INJ 30 ML VIAL As Ordered ONE; -TRIAMCINOLONE ACETONIDE SUSP 40 MG/ML VIAL (J3301) As Ordered ONE; -diazePAM 5 MG TAB As Ordered ONE; -oxyCODONE 5MG TAB As Ordered ONE
--- NOTE | 2019-01-03 13:46 | REP ---
Bilateral lower extremity deep vein duplex ultrasound: The deep veins demonstrate normal compression, normal Doppler color flow and normal Doppler waveforms with respiration and augmentation from the popliteal veins to the common femoral veins on the right and the left . Impression: There is no deep vein thrombus on the right on the left . Lower Extremity Vein Mapping: Right Reflux Left Reflux CFV Reflux no no Ant. Acc. GSV Present no no Reflux no no Greater saph/fem junction 4 mm mm no 3 mm mm no Greater saph vein mid thigh 2 mm mm no 2 mm mm no Greater saph vein at knee 3 mm mm no 2 mm mm no SFV PROX -- mm no -- mm no SFV MID -- mm no -- mm no SFV DISTAL -- mm no -- mm no POPLITEAL VEIN --o mm no -- mm no LSV -- mm no -- mm no There is a slow flow in the distal left lesser saphenous vein. Impression: No reflux is identified. Electronically Signed by Gabriele Diaz MD 01/03/2019 01:38 P
== END ==
LOC: M RAD 10:39
PROVIDERS: ATTEND Family Medicine
DX: M79.604 Pain in right leg (principal)

== ENCOUNTER → 2019-01-07 | Outpatient (REF) | payer OTHER ==
[2019-01-07 17:13] LABS: BASO % 0.2 % (0.0-1.0); EOS # 0.1 10^3/uL (0.0-0.50); EOS % 1.5 % (0.0-3.0); HEMATOCRIT 47.6 % (42.0-52.0); HEMOGLOBIN 16.3 g/dl (13.5-17.5); LYMPH # 2.5 10^3/uL (1.5-4.5); LYMPH % 27.2 % (24.0-44.0); MEAN CORPUSCULAR HEMOGLOBIN 32.9 pg (27.0-33.0); MEAN CORPUSCULAR HGB CONC 34.2 g/dl (32.0-36.5); MEAN CORPUSCULAR VOLUME 96.2 fl (80.0-96.0); MONO # 0.9 10^3/uL (0.0-0.8); MONO % 10.2 % (0.0-5.0); NEUTROPHILS # 5.5 10^3/uL (1.8-7.7); NEUTROPHILS % 60.6 % (36.0-66.0); PLATELET COUNT, AUTOMATED 165 10^3/uL (150-450); RED BLOOD COUNT 4.95 10^6/uL (4.30-6.10); WHITE BLOOD COUNT 9.1 10^3/uL (4.0-10.0)
[2019-01-07 17:33] LABS: ALT/SGPT 53 U/L (12-78); BILIRUBIN,TOTAL 0.8 MG/DL (0.2-1.0); BLOOD UREA NITROGEN 20 MG/DL (7-18); CALCIUM LEVEL 9.6 MG/DL (8.5-10.1); CARBON DIOXIDE LEVEL 25 MEQ/L (21-32); CHLORIDE LEVEL 110 MEQ/L (98-107); CREATININE FOR GFR 0.87 MG/DL (0.70-1.30); GLOMERULAR FILTRATION RATE > 60.0 (>56); GLUCOSE, FASTING 165 MG/DL (70-100); SODIUM LEVEL 142 MEQ/L (136-145); TOTAL PROTEIN 8.3 GM/DL (6.4-8.2)
[2019-01-10 14:07] LABS: HEPATITIS C QUANTITATION HCV Not Detected IU/mL (.)
== END ==
LOC: M SFHCPLAZ 15:29
PROVIDERS: ATTEND Internal Medicine Infectious Disease
DX: B18.2 Chronic viral hepatitis C (principal)

== ENCOUNTER → 2019-01-09 | Outpatient (CLI) | payer OTHER ==
--- NOTE | 2019-01-22 02:10 | ECWPNPC ---
PATIENT NAME: ALLYN PERERA : 1960 GENDER: MALE VISIT DATE: 01/09/2019 DISCHARGE DATE: 01/09/19 1418 VISIT LOCKED DATE TIME: PHYSICIAN: ALFA CARRASCO RESOURCE: ALFA CARRASCO REASON FOR APPOINTMENT 1. POSTY SIJ HISTORY OF PRESENT ILLNESS HISTORY OF PRESENT ILLNESS: HERE FOR POST PROCEDURE F/U.HAD BILAT. SIJ ON 12/04/18. CONTINUES TO HAVE IMPROVEMENT TODAY.RATING PAIN VAS 2/10.CHIEF AREA OF PAIN IS BILATERAL LEGS AND FEET.DESCRIBES PAIN STABBING AND STINGING.HAS BEEN ON GABAPENTIN 600MG TID FOR THE PAST FEW YEARS WITHOUT IMPROVEMENT IN DIABETIC NEUROPATHIC PAIN.DISCUSSED TRIAL OF LYRICA. PAIN THE PATIENT DESCRIBES THE PAIN... FALL RISK SCREENING: SCREENING :NO FALLS REPORTED IN THE LAST YEAR CURRENT MEDICATIONS TAKING ZYRTEC ALLERGY 10 MG TABLET 1 TABLET ORALLY ONCE A DAY NEEDED TAKING FLONASE 50 MCG/ACT SUSPENSION 1 SPRAY IN EACH NOSTRIL NASALLY ONCE A DAY TAKING TIZANIDINE HCL 4 MG TABLET 1 TABLET NEEDED ORALLY NEEDED FOR SPASMS AND PAIN BEFORE BEDTIME TAKING BLOOD GLUCOSE METER - KIT 1 METER DX:E11.65 TWICE DAILY TAKING BD LANCET ULTRAFINE 33G - MISCELLANEOUS 1 LANCET INTRADERMALLY TWICE DAILY DX:E11.65 TAKING BLOOD GLUCOSE TEST STRIP - STRIP 1 STRIP IN VITRO DX:E11.65 TWICE DAILY TAKING ALCOHOL PREP PAD 70 % PAD 1 TOPICALLY TWICE DAILY DX:E11.65 TAKING AMLODIPINE BESYLATE 10 MG TABLET 1 TABLET ORALLY ONCE A DAY TAKING METOPROLOL TARTRATE 100 MG TABLET 1 TABLET WITH FOOD ORALLY TWICE A DAY TAKING GLIMEPIRIDE 2 MG TABLET 1 TABLET WITH BREAKFAST OR THE FIRST MAIN MEAL OF THE DAY ORALLY BID TAKING METFORMIN HCL ER 500 MG TABLET EXTENDED RELEASE 24 HOUR 1 TABLET WITH EVENING MEAL ORALLY ONCE A DAY TAKING BUPROPION HCL ER (SR) 150 MG TABLET EXTENDED RELEASE 12 HOUR 1 TABLET ORALLY TWICE A DAY TAKING COMPRESSION STOCKINGS 15-20 MMHG DIRECTED TAKING LISINOPRIL 20 MG TABLET TAKE ONE TABLET BY MOUTH EVERY DAY TAKING GABAPENTIN 600 MG TABLET 1 ORALLY THREE TIMES A DAY TAKING MAVYRET 100-40 MG TABLET 3 TABLETS ORALLY ONCE A DAY NOT-TAKING OMEPRAZOLE 20 MG CAPSULE DELAYED RELEASE 1 CAPSULE ORALLY BID, NOTES: 12/03/18 NOT-TAKING CETIRIZINE HCL 10 MG TABLET 1 TABLET ORALLY ONCE A DAY, NOTES: 12/03/18 NOT-TAKING SOMA 350 MG TABLET 1 TABLET NEEDED ORALLY Q8H PRN MDD3 NOT-TAKING METHOCARBAMOL 500 MG TABLET 1.5 TABLETS ORALLY Q12H PRN NOT-TAKING SUCRALFATE 1 GM TABLET 1 TABLET ON AN EMPTY STOMACH ORALLY FOUR TIMES DAILY MEDICATION LIST REVIEWED AND RECONCILED WITH THE PATIENT PAST MEDICAL HISTORY HTN SHORT'S PALSY UNSPECIFIED ESSENTIAL HYPERTENSION NONDEPENDENT TOBACCO USE DISORDER SMOKING MIGRAINE WITHOUT AURA, WITH INTRACTABLE MIGRAINE, SO STATED, WITHOUT MENTION OF STATUS MIGRAINOSUS ALLERGIC CONJUNCTIVITIS HYPERLIPIDEMIA ESSENTIAL HYPERTENSION ASCVD10 (2016)- 11.5% DIEBETIC TYPE 2 EPIDIDYMITIS HEPATITIS C ALLERGIES ASPIR-81: VOMITING - SIDE EFFECTS SURGICAL HISTORY RIGHT EPIDIDYMAL CYST REMOVAL 07/08/[address] ROBIN 08/2016 LEFT INGUINAL HERNIA 02/10/2017 PRIFORMIS MUSCLE INJECTION -RIGHT-[facility] 12/28/2016 BILATIERAL INGUINAL HERNIA REPAIR 02/10/17 RIGHT HERNIA REPAIR 06/2017 FAMILY HISTORY FATHER: , DIAGNOSED WITH HYPERTENSION MOTHER: , DIABETES SIBLINGS: ALIVE DAUGHTER(S): ALIVE 1 BROTHER(S) , 2 SISTER(S) . 2DAUGHTER(S) . SOCIAL HISTORY GENERAL: TOBACCO USE ARE YOU A:FORMER SMOKER HOW LONG HAS IT BEEN SINCE YOU LAST SMOKED?6-12 MONTHS SMOKING CESSATION INFORMATION GIVEN01/01/2018 HIV / HEP-C SCREENING HIV TEST OFFERED TO PATIENT:YES DATE OFFERED:10/06/2016 TEST ACCEPTED:NO HEP-C TEST OFFERED TO PATIENT:YES DATE OFFERED:10/06/2016 REASON:PATIENT DECLINED TEST ACCEPTED:NO REASON:PATIENT DECLINED OTHERS AT HOME: GIRLFRIEND. EDUCATION LEVEL OF EDUCATION:NOT FINISHED COLLEGE DIET: REGULAR. LANGUAGE ESTONIAN. DOMESTIC VIOLENCE DO YOU FEEL SAFE IN YOUR ENVIRONMENT?YES NEW PATIENT PAIN DIARY PATIENT DESCRIBES PAIN :ACHING, BURNING, SHARP, SORE FROM 0-10, WHAT LEVEL IS YOUR PAIN TODAY?2.5 BMI CARE GOAL FOLLOW-UP ABOVE NORMAL BMI FOLLOW-UPLIFESTYLE EDUCATION REGARDING DIET RECREATIONAL DRUG USE DRUG USE?NO EXERCISE: NO REGULAR EXERCISE. LEARNING BARRIERS / SPECIAL NEEDS CHANGE FROM LAST VISIT?YES BARRIERS TO LEARNING?NO HEARING IMPAIRED?NO VISION IMPAIRED?YES COGNITIVELY IMPAIRED?NO :CORRECTIVE LENSES READINESS TO LEARN?YES LEARNING PREFERENCES?NO LEARNING CAPABILITIES PRESENT?YES EMOTIONAL BARRIERS?NO SPECIAL DEVICES?NO ADMINISTRATIVE SUPPORT ASSISTANT NEEDED?NO PAIN CLINIC PFS, CLERGY, PUBLIC HEALTH REFERRALS PFS REFERRAL NEEDED?NO CLERGY REFERRAL NEEDED?NO PUBLIC HEALTH REFERRAL NEEDED?NO WAS THE PROVIDER NOTIFIED OF ANY PERTINENT INFO?YES N/A HAS THE PATIENT BEEN EDUCATED REGARDING HIS/HER PLAN OF CARE?YES HAS THE PATIENT BEEN EDUCATED REGARDING PAIN, THE RISK FOR PAIN, THE IMPORTANCE OF EFFECTIVE PAIN MANAGEMENT, AND THE PAIN ASSESSMENT PROCESS?YES LATEX QUESTIONNAIRE LATEX ALLERGY : HAVE YOU EVER DEVELOPED ANY TYPE OF REACTION AFTER HANDLING LATEX PRODUCTS SUCH RUBBER GLOVES, CONDOMS, DIAPHRAGMS, BALLOONS, SOCKS, OR UNDERWEAR?NO LATEX ALLERGY : HAVE YOU EVER DEVELOPED ANY TYPE OF REACTION DURING OR AFTER DENTAL APPOINTMENT, VAGINAL/RECTAL EXAMINATION, SURGICAL PROCEDURE, OR ANY OTHER EXPOSURE?NO LATEX RISK : HAVE YOU EVER HAD ANY DIFFICULTY BREATHING OR HIVES AFTER EATING OR HANDLING ANY FRUITS, OR VEGETABLES; SUCH KIWI, BANANAS, STONE FRUITS, OR CHESTNUTSNO LATEX RISK : DO YOU HAVE A PREVIOUS PERSONAL HISTORY OF MORE THAN NINE SURGERIES, SPINA BIFIDA, OR REPEATED CATHERIZATIONS? NO LATEX RISK : ARE YOU FREQUENTLY EXPOSED TO LATEX PRODUCTS IN YOUR OCCUPATION?NO DATE ASKED : 01/09/2019 CAFFEINE CAFFEINE USE?YES ADVANCE DIRECTIVE ADVANCE DIRECTIVE DISCUSSED WITH PATIENT:YES YES, PT STATES HCP IS TANNER PERERA - DAUGHTER [phone] RELIGIOUS [id number] CONGREGATION MARITAL STATUS: SINGLE. 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 SEXUAL HX HAD SEX IN THE LAST 12 MONTHS (VAGINAL, ORAL, OR ANAL)?YES WITHWOMEN ONLY PREVENTION STRATEGIES DISCUSSED:CONDOMS USE PROTECTION?NO HAVE YOU EVER HAD AN STD?NO PT STATES HE IS CUTTING DOWN ON SMOKING ALOT DOWN TO 2 DAILY11/27/17 1045 REVIEWED WITH PT. ADLREVIEWED WITH PT 03/01/18 1450 LASREVIEWED WITH PT 04/30/18 1106 BVREVIEWED WITH PATIENT 07/19/18 1058 JSREVIEWED WTIH PT 09/11/18 1324 BVREVIEWED WITH PT 10/25/18 1300 LAS. HOSPITALIZATION/MAJOR DIAGNOSTIC PROCEDURE HYPOTENSIVE AND HYPERGLYCEMIA 08/2018 REVIEW OF SYSTEMS REVIEWED BY: PROVIDER: ALFA JIMENEZ . CONSTITUTIONAL: ANY CHANGE IN YOUR MEDICAL CONDITION? NO . CHILLS NO . FEVER NO . INFECTION: DO YOU HAVE NEW INFECTIONS? NO . DO YOU HAVE HISTORY OF MRSA? NO . MUSCULOSKELETAL: ANY NEW PATTERNS OF PAIN OR NUMBNESS? NO . GASTROENTEROLOGY: ANY NEW CHANGE IN BOWEL CONTROL? NO . GENITOURINARY: ANY NEW CHANGE IN BLADDER CONTROL? NO . IS THERE A CHANCE YOU COULD BE ? NO . HEMATOLOGY/LYMPH: DO YOU TAKE ANY BLOOD THINNERS? (FOR EXAMPLE- COUMADIN, PLAVIX, AGGRENOX, PLATEL, PRADAXA, OR XARELTO) NO . WHEN WAS YOUR LAST DOSE? DATE: TIME: . NEUROLOGY: HAVE YOU FALLEN IN THE PAST 12 MONTHS? YES, PT STATES HE FELL WHILE AT HOME, A FEW SURFACE SCRATCHES, NO REPORT TO ED . ANY NEW EXTREMITY NUMBNESS OR WEAKNESS? NO . CARDIOLOGY: DO YOU HAVE A PACEMAKER OR DEFIBRILLATOR? NO . RESPIRATORY: HAVE YOU BEEN SICK IN THE PAST WEEK? NO . FEVER NO . FLU LIKE SYMPTOMS? NO . COUGH NO . INTEGUMENTARY: DO YOU HAVE ANY RASHES OR OPEN SORES? NO . ALLERGIC/IMMUNO: ARE YOU ALLERGIC TO IV DYE? NO . ANY NEW ALLERGIES? NO . PSYCHIATRIC: DO YOU HAVE THOUGHTS OF HURTING YOURSELF OR SOMEONE ELSE? NO . ARE YOU ABUSED, NEGLECTED, OR IN AN UNSAFE ENVIRONMENT? NO . ENDOCRINOLOGY: ARE YOU DIABETIC? YES, FSBS 118 . OTHER: DO YOU NEED ANY PRESCRIPTIONS? NO . IF YES, PLEASE LIST: ____ . ANY NEW PROBLEMS WITH YOUR MEDICATIONS? NO . WHEN DID YOU LAST EAT? ____ . WHEN DID YOU LAST DRINK? ____ . WHAT DID YOU LAST DRINK? ____ . NAME OF PERSON DRIVING YOU HOME? ____ . DO YOU HAVE ANY OTHER QUESTIONS OR CONCERNS NO . VITAL SIGNS WT 200.4 LBS, HT 66 IN, BMI 32.34 INDEX, BP 154/93 MM HG, HR 66 /MIN, RR 18 /MIN, TEMP 97.9 F, OXYGEN SAT % 95%, SAFE IN ENV? (Y/N) Y, NA INITIALS AW 1318, REVIEWED BY: STU. EXAMINATION GENERAL EXAMINATION: GENERAL ALERT,NO DISTRESS. PSYCH CONSTRICTED. HEENT: NORMOCEPHALIC,PERRLA. NECK:NO LYMPHADENOPATHY. LUNGS: LUNG SOUNDS ARE CLEAR. HEART: HEART RATE REGULAR. ABDOMEN: DISTENDED. ASSESSMENTS DIABETIC PERIPHERAL NEUROPATHY - E11.42 (PRIMARY) SACROILIITIS, NOT ELSEWHERE CLASSIFIED - M46.1 TREATMENT DIABETIC PERIPHERAL NEUROPATHY STOP GABAPENTIN TABLET, 600 MG, 1, ORALLY, THREE TIMES A DAY, 90 DAYS, 270 START LYRICA CAPSULE, 150 MG, 1 CAPSULE, ORALLY, BID MDD2, 30 DAYS, 60, REFILLS 2 NOTES: DUE TO FAILURE ON GABAPENTIN FOR DPN PAIN IM RECOMMENDING TRIAL OF LYRICA 150MG TID.EDUCATION TEACHING GIVEN TO PT AND PT ACKNOWLEDGED UNDERSTANDING. DS. PROCEDURE CODES FA211 ESTABILISHED PATIENT [facility] CHARGE DISPOSITION & COMMUNICATION FOLLOW UP 2 MONTHS (REASON: MED MGMNT) ELECTRONICALLY SIGNED BY BARBARA HEARD ON 01/21/2019 AT 03:56 PM EDT DISCLAIMER : THIS IS A VISIT SUMMARY EXTRACTED FROM THE [employer] CHART. IT IS NOT A COPY OF THE [employer] PROGRESS NOTE. MTDD
== END ==
LOC: M PAIN 13:30
PROVIDERS: ATTEND Nurse Practitioner Family
DX: E11.42 Type 2 diabetes mellitus with diabetic polyneuropathy (principal); M46.1 Sacroiliitis, not elsewhere classified; I10 Essential (primary) hypertension; G51.0 Bell's palsy; G43.019 Migraine without aura, intractable, without status migrainosus; E78.5 Hyperlipidemia, unspecified; Z86.19 Personal history of other infectious and parasitic diseases; Z87.891 Personal history of nicotine dependence; Z88.6 Allergy status to analgesic agent; Z79.84 Long term (current) use of oral hypoglycemic drugs; Z79.899 Other long term (current) drug therapy

== ENCOUNTER → 2019-01-18 | Outpatient (CLI) | payer OTHER ==
[~2019-01-18] MED LIST changes: +CETI10CH PO; +METF500T13 PO; +NAPR-855 PO; +PANT40TA3 PO
--- NOTE | 2019-01-18 11:57 | REP ---
Hepatobiliary scan and gallbladder ejection fraction: History: right upper quadrant pain. Epigastric pain and nausea. Technique: 6.6 mCi of technetium-99m mebrofenin was injected and sequential anterior images are acquired. 65 minutes after the mebrofenin injection, the patient consumed 8 ounces Ensure and an additional 60 minutes of imaging was acquired. Regions of interest are plotted around the gallbladder. Findings: The initial hepatocellular parenchymal uptake phase is normal and homogeneous. Intra- and extra-hepatic bile ducts are labeled by the 10 -minute image. The gallbladder is first labeled on the 10 -minute image. There is normal washout from the liver parenchyma into the gallbladder and small intestine on subsequent images. The gallbladder ejection fraction is 20 %. Values greater than 35 % are considered normal with this technique. Impression: Normal hepatobiliary scan and decreased gallbladder ejection fraction. Electronically Signed by Wang Laureano MD 01/18/2019 11:49 A
== END ==
LOC: M RAD 08:19
PROVIDERS: ATTEND Internal Medicine Gastroenterology
DX: K82.8 Other specified diseases of gallbladder (principal); R10.13 Epigastric pain; R11.0 Nausea
CPT/HCPCS: 78227; A9537; J2805

== ENCOUNTER 2019-02-01 10:54 | Day surgery (SDC) | payer OTHER ==
[~2019-02-01] VITALS: Ht 170.2 cm; Wt 92.1 kg
[~2019-02-01 10:54] MED LIST changes: +NS 1,000 ML IV ONE
[2019-02-01] MEDS ORDERED: PROPOFOL 200 MG/20 ML VIAL As Ordered ONE (13:17)
[2019-02-01] MEDS ORDERED: PROPOFOL 500 MG/50 ML VIAL As Ordered ONE (13:17)
[2019-02-01] MEDS ORDERED: LIDOCAINE 2% INJ 100 MG/5 ML SDV (FOR ANES.) As Ordered ONE (13:17)
[2019-02-01] MEDS ORDERED: fentaNYL 100 MCG/2 ML INJECTION (J3010) As Ordered ONE (13:17)
--- NOTE | 2019-02-01 13:31 | ROOR ---
Patient Name: Bolivar Anguiano Procedure Date: 02/01/2019 1:14 PM Date of : 1960 Age: 58 Room: [facility] Gender: Male Note Status: Finalized Procedure: Upper GI endoscopy Indications: Epigastric abdominal pain, Nausea Providers: Bolivar WHEELER MD Referring MD: Isidoro Jolley Do Requesting Provider: Medicines: Monitored Anesthesia Care Complications: No immediate complications. Procedure: Pre-Anesthesia Assessment: - The heart rate, respiratory rate, oxygen saturations, blood pressure, adequacy of pulmonary ventilation, and response to care were monitored throughout the procedure. The Endoscope was introduced through the mouth, and advanced to the second part of duodenum. The upper GI endoscopy was accomplished without difficulty. The patient tolerated the procedure well. Findings: Mild gastritis, Biopsies were taken with a cold forceps for Helicobacter pylori testing. The exam was otherwise without abnormality. Impression: - Mild gastritis. Biopsied - The examination was otherwise normal. Recommendation: - Continue present medications. - Use Protonix (pantoprazole) 40 mg PO daily. - Telephone endoscopist for pathology results in 2 weeks. - Observe patient's clinical course. - Your Gallbladder function is diminished (abnormal HIDA scan). For recurrent symptoms of nausea and abdominal pain would recommend surgical consultation. Bolivar Wheeler MD Bolivar WHEELER MD 02/01/2019 1:31:08 PM Electronically signed by Bolivar WHEELER MD Number of Addenda: 0 Note Initiated On: 02/01/2019 1:14 PM Estimated Blood Loss: Estimated blood loss: none.
[2019-02-01 13:45] VITALS: BP 189/86
== END 2019-02-01 14:09 | disposition home or self-care (01) ==
LOC: M OPP 10:54
PROVIDERS: ATTEND Internal Medicine Gastroenterology
DX: K29.50 Unspecified chronic gastritis without bleeding (principal); R10.13 Epigastric pain; R11.0 Nausea
CPT/HCPCS: 43239; 88305; J3010

== ENCOUNTER → 2019-02-02 | Outpatient (CLI) | payer OTHER ==
[~2019-02-02] MED LIST changes: -NS 1,000 ML IV ONE
== END ==
LOC: M LAB 10:28
PROVIDERS: ATTEND Family Medicine
DX: I87.2 Venous insufficiency (chronic) (peripheral) (principal)

== ENCOUNTER → 2019-02-04 | Outpatient (CLI) | payer OTHER ==
--- NOTE | 2019-02-04 12:35 | REP ---
Abdominal ultrasound for ascites: Ultrasonography of all four quadrants, right and left flanks in the lower mid abdomen transverse and sagittal orientations is performed. No abdominal ascites is identified. Impression: No abdominal ascites is identified Electronically Signed by Gabriele Diaz MD 02/04/2019 12:26 P
== END ==
LOC: M RAD 10:35
PROVIDERS: ATTEND Family Medicine
DX: I87.2 Venous insufficiency (chronic) (peripheral) (principal)

== ENCOUNTER → 2019-02-14 | Outpatient (CLI) | payer OTHER ==
--- NOTE | 2019-02-14 16:36 | REP ---
Low-dose lung cancer screening CT Indication: Nicotine dependence. Comparison: CT chest of 05/23/2017. Technique: Axial low-dose CT of the chest was performed and reviewed in lung reformatted images only. No intravenous contrast was administered. Findings: There is an unchanged one - 2 mm nodule in the outer one-third of the right lower lobe (image 46). There is no suspicious nodule. There is no consolidation. There is no pleural effusion. There are atherosclerotic calcification of the thoracic aorta and coronary arteries. There is no pericardial effusion. There is no suspicious focal osseous lesion. Impression: Lung-RADS 2 with less than 1% probability of malignancy. Continue annual screening with low-dose CT in 12 months. Electronically Signed by Carroll Blanchard MD 02/14/2019 04:28 P
== END ==
LOC: M RAD 15:43
PROVIDERS: ATTEND Internal Medicine Pulmonary Disease
DX: Z12.2 Encounter for screening for malignant neoplasm of respiratory organs (principal); Z87.891 Personal history of nicotine dependence

== ENCOUNTER 2019-03-12 11:42 | Inpatient (IN) | payer OTHER ==
[~2019-03-12] VITALS: Ht 165.1 cm; Wt 91.9 kg
[2019-03-12] MEDS ORDERED: SPIR-10 PO (12:01)
[2019-03-12] MEDS ORDERED: GABA600T4 PO (12:01)
--- NOTE | 2019-03-12 12:10 | REP ---
CT BRAIN WITHOUT CONTRAST: HISTORY: Left-sided weakness. Comparison head CT study April 28, 2016. Comparison MRI brain study August 28, 2017. CT FINDINGS: Preliminary digital industrial engineering technologist radiograph is unremarkable. The patient is edentulous. Bone window settings demonstrate an intact bony calvarium. There is minimal vascular calcification in the distal internal carotid arteries. Visualized paranasal sinuses are clear. No intraorbital abnormality is appreciated. On soft tissue window settings, the lateral, third and fourth ventricles are normal in size and position. There is no evidence of intracranial hemorrhage. No extra-axial fluid collection is seen. No infarct or mass is observed. IMPRESSION: Negative noncontrast head CT. Electronically Signed by Wang Laureano MD 03/12/2019 04:07 P
[2019-03-12 12:52] LABS: BASO % 0.4 % (0.0-1.0); EOS # 0.2 10^3/uL (0.0-0.5); EOS % 2.1 % (0.0-3.0); HEMATOCRIT 46.8 % (42.0-52.0); HEMOGLOBIN 15.7 g/dl (13.5-17.5); LYMPH # 2.1 10^3/uL (1.5-5.0); LYMPH % 29.5 % (24.0-44.0); MEAN CORPUSCULAR HEMOGLOBIN 32.3 pg (27.0-33.0); MEAN CORPUSCULAR HGB CONC 33.5 g/dl (32.0-36.5); MEAN CORPUSCULAR VOLUME 96.3 fl (80.0-96.0); MONO # 0.9 10^3/uL (0.0-0.8); MONO % 12.3 % (0.0-5.0); NEUTROPHILS # 3.9 10^3/uL (1.5-8.5); NEUTROPHILS % 55.4 % (36.0-66.0); PLATELET COUNT, AUTOMATED 124 10^3/uL (150-450); RED BLOOD COUNT 4.86 10^6/uL (4.30-6.10); WHITE BLOOD COUNT 7.1 10^3/uL (4.0-10.0)
--- NOTE | 2019-03-12 13:00 | REP ---
Portable chest, 12:47 p.m., single AP view with the patient upright: Comparison is 08/31/1929 teen. The lung cancino are clear. Cardiac size is enlarged, unchanged. The silvia, mediastinum, skeletal structures are unremarkable. Impression: Chronic cardiomegaly. No acute cardiopulmonary findings. Electronically Signed by Gabriele Diaz MD 03/12/2019 12:52 P
[2019-03-12 13:06] LABS: INR 1.1; PARTIAL THROMBOPLASTIN TIME 31.5 SECONDS (25.0-38.4); PROTHROMBIN TIME 13.9 SECONDS (11.8-14.0)
[2019-03-12 13:24] LABS: ALT/SGPT 65 U/L (12-78); BILIRUBIN,DIRECT 0.2 MG/DL (0.0-0.2); BLOOD UREA NITROGEN 20 MG/DL (7-18); CALCIUM LEVEL 9.1 MG/DL (8.5-10.1); CARBON DIOXIDE LEVEL 24 MEQ/L (21-32); CHLORIDE LEVEL 107 MEQ/L (98-107); CK-MB VALUE MASS 1.4 NG/ML (<3.6); CPK CREATINE PHOSPHOKINASE 94 U/L (39-308); CREATININE FOR GFR 0.77 MG/DL (0.70-1.30); GLOMERULAR FILTRATION RATE > 60.0 (>56); GLUCOSE, FASTING 143 MG/DL (70-100); MB/CK RELATIVE INDEX 1.49 (< OR =4); POTASSIUM SERUM 4.9 MEQ/L (3.5-5.1); SODIUM LEVEL 141 MEQ/L (136-145); TROPONIN I < 0.02 NG/ML (< 0.10)
[2019-03-12] MEDS ORDERED: CLOPIDOGREL 75 MG TAB PO ONE (13:45)
[2019-03-12] MEDS ORDERED: NAPR500T6 PO (13:57)
[2019-03-12] MEDS ORDERED: ALL10TAB29 PO (13:57)
[2019-03-12] MEDS ORDERED: PANT40TA3 PO (13:57)
[2019-03-12] MEDS ORDERED: AMLO5TAB6 PO (13:57)
[2019-03-12] MEDS ORDERED: AIRD1INH2 INH (13:57)
[2019-03-12] MEDS ORDERED: METF-723 PO (13:57)
[2019-03-12] MEDS ORDERED: TIZA4TAB4 PO (13:57)
[2019-03-12] MEDS ORDERED: LYRI150C PO (13:57)
[2019-03-12] MEDS ORDERED: INCR1INH INH (13:57)
[2019-03-12] MEDS ORDERED: GABAPENTIN 300 MG CAP PO PRN (14:30)
[2019-03-12] MEDS ORDERED: MAALOX 30 ML SUSP *UDC PO PRN (15:15)
[2019-03-12] MEDS ORDERED: MOM 30ML SUSPENSION UDC PO PRN (15:15)
[2019-03-12] MEDS ORDERED: DEXTROSE 50% 50 ML SYRINGE IV PRN (15:30)
[2019-03-12] MEDS ORDERED: GLUCOSE 4 GM CHEW TABLET PO PRN (15:30)
[2019-03-12] MEDS ORDERED: GLUCAGON FOR INJ 1 MG VIAL (J1610) SC PRN (15:30)
--- NOTE | 2019-03-12 15:45 | HPEPDOC ---
[facility] Medical History & Physical Date of Admission Mar 12, 2019 Date of Service: Mar 12, 2019 Attending Physician: HAN YANG MD History and Physical Chief complaint Left-sided weakness with left-sided facial droop History of present illness and Hospital course This is a 57-year-old male with past medical history of hypertension, hyperlipidemia, diabetes mellitus 2, history of lateral Cornelius's policy who presented to the emergency department because of 2 day history of progressively feeling weak, especially on his left side. The patient states that he initially felt that his left side of the face was droopy and he was not been able to speak properly and at the same time he felt that his left side of the body was slightly weaker than the right side. The patient states that he has had history of Cornelius's balance in the past but it did not feel like the same. The patient also states that he waited for 2 days because he thought that this will pass, but as it continued to worsen. He presented to the ER today. In the ER, the patient was evaluated for possible stroke and the CT head was done which came out to be negative. Hospitalist team was consulted for further care. The patient denies any fever, any rigors, any chills, any vision changes or any headaches. The patient denies any chest pain, any loss of consciousness. Patient denies any coughing after drinking any water or any aspiration. States that his sugars are well controlled, but does not remember his A1c PAST MEDICAL HISTORY: 1. Hypertension. 2. Hyperlipidemia. 3. Diabetes. 4. Cornelius's palsy. PAST SURGICAL HISTORY: Bilateral inguinal hernia repair. DRUG ALLERGIES: ASPIRIN. FAMILY HISTORY: Noncontributory. SOCIAL HISTORY: Patient was a heavy smoker; quit approximately a year ago. Denies alcohol or illicit drugs. HOME MEDICATIONS: - amlodipine 10 mg orally daily - atorvastatin 80 mg orally daily - bupropion 150 mg orally twice daily - cetirizine 10 mg orally daily - fluticasone two sprays each nostril as needed - gabapentin 600 mg orally three times a day - glimepiride 2 mg orally in the morning - lisinopril 20 mg orally daily - meloxicam 15 mg orally by mouth every 3 daily - metformin 1000 mg orally twice daily - metoprolol 100 mg orally twice daily - tizanidine 4 mg orally at bedtime REVIEW OF SYSTEMS: Negative for [id number] systems except what is mentioned in the history of present illness (HPI). VITAL SIGNS: Blood pressure 157/83, heart rate 61, regular HEAD: Atraumatic, normocephalic. NECK: Supple. No jugular venous distention (JVD). LUNGS: Clear to auscultation. S1, S2 audible. No murmurs appreciated. ABDOMEN: Soft. Positive bowel sounds. Extremities No pedal edema. SKIN: Intact. NEUROLOGIC: The patient does exhibit left-sided facial droop with involvement of both upper face and the lower face. Also the strength on the left upper extremity is 4 out of 5 and the left lower extremity is 3 out of 5. The strength on the right upper and lower extremities 5 out of 5. The range of motion on the left upper extremity is appropriate. There is tongue deviation towards the right side. Sensations are intact. Babinski's negative. All the deep tendon reflexes are normal. LABORATORY DATA: Reviewed Radiology reviewed Assessment and plan 1. CVA. Given the patient's weakness on the left upper and lower extremity. There is a possibility of right-sided CVA. The patient definitely has left lower facial weakness and possible left upper facial weakness as well. This is related to her upper motor neuron lesion could point towards brainstem stroke. For that reason, MRI of the brain has been ordered. Carotid Dopplers have been ordered. Patient last normal self, was 48 hours back, so he is not a TPA candidate. The patient is allergic to aspirin will be started on Plavix and statin. Permissive hypertension will be allowed. The patient will only be getting metoprolol and his lisinopril as well as amlodipine is on hold. Bedside speech and swallow will be done and 11. The patient will be kept nothing by mouth. Fall precautions initiated. A1c, lipid panel, TSH ordered. EKG ordered. Though the pulse is looking irregular. 2-D echo will be done to rule out any intracardiac etiology. Patient will be continued on telemetry to rule out any A. fib/paroxysmal A. fib 2. Diabetes mellitus. 2. The patient takes glipizide and metformin at home. Both oral hypoglycemics are on hold. Sliding scale insulin initiated with frequent glucose checks. PT, OT evaluation requested The patient is high risk because of possible CVA requiring MRI, 2-D echo and telemetry and expected length of stay is greater than 2 per night. Vital Signs Vital Signs Date Time Temp Pulse Resp B/P (MAP) Pulse Ox O2 Delivery O2 Flow Rate FiO2 03/12/19 14:30 52 16 152/85 (107) 97 Laboratory Data Labs 24H Laboratory Tests 2 03/12/19 12:31: Immature Granulocyte % (Auto) 0.3, White Blood Count 7.1, Red Blood Count 4.86, Hemoglobin 15.7, Hematocrit 46.8, Mean Corpuscular Volume 96.3H, Mean Corpus cular Hemoglobin 32.3, Mean Corpuscular Hemoglobin Concent 33.5, Red Cell Distribution Width 13.4, Platelet Count 124L, Neutrophils (%) (Auto) 55.4, Lymphocytes (%) (Auto) 29.5, Monocytes (%) (Auto) 12.3H, Eosinophils (%) (Auto) 2.1, Basophils (%) (Auto) 0.4, Neutrophils # (Auto) 3.9, Lymphocytes # (Auto) 2.1, Monocytes # (Auto) 0.9H, Eosinophils # (Auto) 0.2, Basophils # (Auto) 0.0, Nucleated Red Blood Cells % (auto) 0.0, Prothrombin Time 13.9, Prothromb Time International Ratio 1.10, Activated Partial Thromboplast Time 31.5, Anion Gap 10, Glomerular Filtration Rate > 60.0, Calcium Level 9.1, Aspartate Amino Transf (AST/SGOT) 48H, Alanine Aminotransferase (ALT/SGPT) 65, Alkaline Phosphatase 70, Total Bilirubin 1.0, Direct Bilirubin 0.2, Total Creatine Kinase 94, Creatine Kinase MB 1.4, Creatine Kinase MB Relative Index 1.49, Troponin I < 0.02, Total Protein 8.0, Albumin 4.0, Albumin/Globulin Ratio 1.00 CBC/BMP Laboratory Tests 03/12/19 12:31 Red Blood Count 4.86, Mean Corpuscular Volume 96.3 H, Mean Corpuscular Hemoglobin 32.3, Mean Corpuscular Hemoglobin Concent 33.5, Red Cell Distribution Width 13.4, Neutrophils (%) (Auto) 55.4, Lymphocytes (%) (Auto) 29.5, Monocytes (%) (Auto) 12.3 H, Eosinophils (%) (Auto) 2.1, Basophils (%) (Auto) 0.4, Neutrophils # (Auto) 3.9, Lymphocytes # (Auto) 2.1, Monocytes # (Auto) 0.9 H, Eosinophils # (Auto) 0.2, Basophils # (Auto) 0.0 Home Medications Scheduled Amlodipine Besylate (Amlodipine Besylate) 5 Mg Tablet, 5 MG PO DAILY Bupropion Hcl (Bupropion HCl Sr) 150 Mg Tab, 150 MG PO QPM Cetirizine HCl (Cetirizine HCl) 10 Mg Tablet, 10 MG PO DAILY 1400 Fluticasone Propion/Salmeterol (Airduo Respiclick 113-14 Mcg) 1 Each Aer.pow.ba, 1 PUFF INH BID Glimepiride (Glimepiride) 2 Mg Tab, 2 MG PO BID Lisinopril (Lisinopril) 20 Mg Tab, 20 MG PO DAILY 1400 Metformin HCl (Metformin HCl ER) 500 Mg Tab.er.24h, 500 MG PO QPM Metoprolol Tartrate (Metoprolol Tartrate) 100 Mg Tab, 100 MG PO BID Naproxen (Naproxen) 500 Mg Tablet.dr, 500 MG PO BID Pantoprazole Sodium (Pantoprazole Sodium) 40 Mg Tablet.dr, 40 MG PO DAILY Pregabalin (Lyrica) 150 Mg Capsule, 150 MG PO BID Spironolactone (Spironolactone) 25 Mg Tablet, 25 MG PO DAILY Umeclidinium [place] (Incruse Ellipta) 62.5 Mcg Blst.w.dev, 1 PUFF INH DAILY Scheduled PRN Gabapentin (Neurontin) 600 Mg Tab, 600 MG PO TID PRN for PAIN Tizanidine HCl (Tizanidine HCl) 4 Mg Tablet, 4 MG PO QHS PRN for MUSCLE SPASMS Allergies Coded Allergies: aspirin (Verified Adverse Reaction, Mild, N/V, 01/25/19) A-FIB/CHADSVASC A-FIB History Current/History of A-Fib/PAF?: No Current PO Anticoag Therapy: No HAN YANG MD Mar 12, 2019 15:45
[2019-03-12 15:53] LABS: CHOLESTEROL LEVEL 236 MG/DL (<200); CHOLESTEROL RISK RATIO 9.833 (<5); HDL CHOLESTEROL 24 MG/DL (>40); NON-HDL-C 212 MG/DL; TRIGLYCERIDES LEVEL 693 MG/DL (<150)
[2019-03-12 16:07] LABS: HEMOGLOBIN A1c 6.3 %
[2019-03-12] MEDS: HumaLOG INSULIN (NovoLOG) PER UNIT SC SCH (17:30)
--- NOTE | 2019-03-12 17:49 | ECGEPIP ---
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
[2019-03-12 18:20] VITALS: BP 194/100
--- NOTE | 2019-03-12 19:09 | REP ---
MRI brain without contrast: History: Left-sided weakness. CVA. Comparison brain MRI study August 28, 2017. Technique: Axial and sagittal imaging planes are utilized for T1 and T2-weighted scans. Sequences include spin-echo, fast spin echo, FLAIR, and diffusion weighted sequences. MRI findings: No bony calvarial lesion is appreciated. Craniocervical junction and upper cervical cord are unremarkable. No intraorbital abnormality is seen. There is no MR evidence of significant paranasal sinus disease. Diffusion weighted scans show no evidence to suggest acute ischemia. There is no evidence of intracranial hemorrhage. There are a few scattered subcortical and periventricular white matter foci of T2 hyperintensity consistent with small vessel changes. These are unchanged from the comparison MRI study of August 28, 2017. Study is otherwise unremarkable. Impression: Mild small vessel atherosclerotic changes unchanged from August 28, 2017. No acute intracranial abnormality. Electronically Signed by Wang Laureano MD 03/12/2019 07:24 P
--- NOTE | 2019-03-12 19:15 | REPVR ---
PROCEDURE INFORMATION: Exam: US Duplex Bilateral Extracranial Arteries Exam date and time: 03/12/2019 5:40 PM Clinical history: 58 years old, male; Weakness, facial; Additional info: CVA TECHNIQUE: Imaging protocol: Real-time Duplex ultrasound scan of the Bilateral carotid and vertebral arteries combining selby scale, color Doppler and spectral waveform analysis. COMPARISON: No relevant prior studies available. FINDINGS: Right common carotid artery: Unremarkable. No occlusion or stenosis. Waveforms are normal. Right internal carotid artery: Unremarkable. No occlusion or stenosis. Waveforms are normal. Right ICA/CCA ratio: Within normal limits. 0.5. Right external carotid artery: No stenosis in the origin. Right vertebral artery: Not visualized. Left common carotid artery: Unremarkable. No occlusion or stenosis. Waveforms are normal. Left internal carotid artery: Unremarkable. No occlusion or stenosis. Waveforms are normal. Left ICA/CCA ratio: Within normal limits. 0.6. Left external carotid artery: No stenosis in the origin. Left vertebral artery: Unremarkable. Antegrade flow. IMPRESSION: 1. Less than 50% right ICA stenosis. 2. Less than 50% left ICA stenosis. 3. The left vertebral artery appears patent and antegrade. The right vertebral artery was not visualized. COMMENT: Carotid Stenosis Reference using SRU criteria: Mild: less than 50% stenosis. ICA PSV is less than 125 cm/second and plaque or intimal thickening is visible. Moderate: 50-69% stenosis. ICA PSV is 125 to 230 cm/second and plaque is visible. Severe: 70-94% stenosis. ICA PSV is more than 230 cm/second and visible plaque and lumen narrowing are seen. Near occlusion: 95-99% stenosis. ICA PSV is variable and significant plaque and luminal narrowing are seen. Occluded: 100% stenosis. No flow identified. Electronically signed by: Juanita Breaux On 03/12/2019 19:15:11 PM
[2019-03-12] MEDS: PANTOPRAZOLE 40MG TAB (PROTONIX) PO SCH (19:27)
[2019-03-12] MEDS: hydrALAZINE INJ 20 MG/ML VIAL IV SCH (19:27)
[2019-03-12] MEDS: ENOXAPARIN 40 MG/0.4 ML SYRINGE (J1650) SC SCH (19:28)
[2019-03-12 20:00] VITALS: BP 170/100
[2019-03-12 21:52] VITALS: BP 165/110
[2019-03-12] MEDS: METOPROLOL TARTRATE 100 MG TAB PO SCH (22:10)
[2019-03-12] MEDS: DOCUSATE SODIUM 100 MG CAP PO SCH (22:53)
[2019-03-13] VITALS: BP 174/102
[2019-03-13] MEDS: buPROPion **SR TABLET** (ZYBAN) 150MG PO SCH ×2 (00:20→21:16)
[2019-03-13 04:00] VITALS: BP 162/94
[2019-03-13] MEDS: hydrALAZINE INJ 20 MG/ML VIAL IV SCH ×5 (05:33→18:00)
[2019-03-13 07:09] LABS: ALBUMIN 3.4 GM/DL (3.2-5.2); ALT/SGPT 60 U/L (12-78); BLOOD UREA NITROGEN 15 MG/DL (7-18); CALCIUM LEVEL 8.8 MG/DL (8.5-10.1); CARBON DIOXIDE LEVEL 25 MEQ/L (21-32); CHLORIDE LEVEL 104 MEQ/L (98-107); GLOMERULAR FILTRATION RATE > 60.0 (>56); GLUCOSE, FASTING 145 MG/DL (70-100); POTASSIUM SERUM 3.8 MEQ/L (3.5-5.1); SODIUM LEVEL 138 MEQ/L (136-145); TOTAL PROTEIN 7.2 GM/DL (6.4-8.2)
[2019-03-13 07:30] VITALS: BP 162/98
[2019-03-13] MEDS: CLOPIDOGREL 75 MG TAB PO SCH (08:09)
[2019-03-13] MEDS: HumaLOG INSULIN (NovoLOG) PER UNIT SC SCH ×3 (08:09→18:19)
[2019-03-13] MEDS: PANTOPRAZOLE 40MG TAB (PROTONIX) PO SCH (08:09)
[2019-03-13] MEDS: ATORVASTATIN 20 MG TAB PO SCH ×2 (08:14→08:39)
[2019-03-13] MEDS: DOCUSATE SODIUM 100 MG CAP PO SCH ×2 (08:14→21:15)
[2019-03-13] MEDS: METOPROLOL TARTRATE 100 MG TAB PO SCH ×2 (08:22→21:15)
[2019-03-13] MEDS: ENOXAPARIN 40 MG/0.4 ML SYRINGE (J1650) SC SCH (08:22)
[2019-03-13] MEDS ORDERED: FLUBLOK(EGG FREE)(QUAD)INFLUENZA VACC 0.5ML SYRINGE (90682)18YRS&OLDER IM ONE (09:00)
--- NOTE | 2019-03-13 09:30 | IPNPDOC ---
Text Note Date of Service The patient was seen on 03/13/19. NOTE Mr. Lyons was seen at bedside today and denied any new changes to his condition overnight. He did complain of left sided abdominal pain which he rated at a 4/10 and described as a squeezing sensation. No other events were reported over night. He denies chest pain, palpitations, SOB, N/V, or changes in his vision/hearing. Physical exam: Pt is an obese male sitting in his bed in mild distress. While I was seeing Mr. Lyons he had to use the bathroom and was able to walk with some assistance from his nurse. His speech is slurred but he responds appropriately to questions. Pulmonary: Lungs clear to auscultation B/L Cardiovascular: Tachycardic at 119 bpm. Regular rhythm, no murmurs, knocks, rubs noted. Abdomen: Pt is obese. Normal bowel sounds in all 4 quadrants. No organomegaly noted. Nontender to palpation in all four quadrants. No rebound tenderness or guarding. Extremities: Congenital absence of toes B/L noted. Feet are dry but no sores present. Psych: Well-mannered and cooperative to exam. Alert and aware X3 Neuro: Sensation intact and equal in all four extremities. Muscle strength testing shows the following: Shoulder flexion 2/5 on L and 4/5 on R. UE flexion 3/5 L and 4/5 R. UE extension 3/5 L and 4/5 R. 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 Hip flexion 4/5 L and 5/5 R. Hip extension 4/5 L and 5/5 R. Knee flexion 2/5 L and 4/5 R. Knee extension 2/5 L and 4/5 R. Reflexes were normal in all extremities including negative Babinski reflex. Cranial Nerve testing showed pt was unable to wrinkle his forehead B/L and was unable to keep his L eyebrow raised under its own weight during oculomotor testing consistent with patient's prior diagnosis of [place] Palsy. Decreased L shoulder shrug strength and L head turning strength were noted as well. His tongue protrudes to the right. Assessment and plan: #CVA: Pt is exhibiting muscle weakness throughout all four extremities. 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 Head CT and MRI have been performed and were negative for pathology. Cervical and Thoracic MRI will be performed to rule out spinal cord pathology. Carotid dopplers were performed as well and showed < 50% occlusion in both of his carotid arteries. He is currently on clopidogrel, atorvastatin and will continue home medications amlodipine and lisinopril. PT/OT has been ordered. #Dyslipidemia: Pt TGs 693, Total cholesterol 236, HDL 24, non-HDL 212. Pt had not been taking his statin medication due to a hx of hepatitis. Pt will start taking his Statin. #Elevated Transaminase: Patient had mildly elevated transaminases on admission. He has had hepatitis in the past which has been treated. He was taken off of his statin at that time in the past. His LFTs have normalized. His statin has been restarted given the possibility of a CVA/TIA. Will continue to monitor LFTs. #HTN: Patient BP has been stable around 170/100 which is allowed under permissive hypertension. Current medications include with amlodipine, lisinopril, metoprolol, and hydralazine. #Abdominal discomfort: Patient is complaining of a vague squeezing pain in his upper left quadrant of his abdomen. There was no organomegaly noted on exam. Will monitor and further evaluate if pain persists or worsens. Bowel regimen has been added #Disposition: Discharge pending results of MRI and PT/OT. Likely 48-72 hours. VS,Fishbone, I+O VS, Fishbone, I+O Laboratory Tests 03/12/19 12:31 Red Blood Count 4.86, Mean Corpuscular Volume 96.3 H, Mean Corpuscular Hemoglobin 32.3, Mean Corpuscular Hemoglobin Concent 33.5, Red Cell Distribution Width 13.4, Neutrophils (%) (Auto) 55.4, Lymphocytes (%) (Auto) 29.5, Monocytes (%) (Auto) 12.3 H, Eosinophils (%) (Auto) 2.1, Basophils (%) (Auto) 0.4, Neutrophils # (Auto) 3.9, Lymphocytes # (Auto) 2.1, Monocytes # (Auto) 0.9 H, Eosinophils # (Auto) 0.2, Basophils # (Auto) 0.0 03/13/19 06:12 Calcium Level 8.8, Aspartate Amino Transf (AST/SGOT) 35, Alanine Aminotransferase (ALT/SGPT) 60, Alkaline Phosphatase 59, Total Bilirubin 1.0, Total Protein 7.2, Albumin 3.4 Vital Signs Date Time Temp Pulse Resp B/P (MAP) Pulse Ox O2 Delivery O2 Flow Rate FiO2 03/13/19 08:22 59 162/98 03/13/19 07:30 97.3 18 96 I&O- Last 24 Hours up to 6 AM 03/13/19 06:00 Intake Total 310 ml Output Total 840 ml Balance -530 ml GME ATTESTATION GME ATTESTATION My faculty preceptor for this patient encounter was physically present during the encounter and was fully available. All aspects of the patient interview, examination, medical decision making process, and medical care plan development were reviewed and approved by the faculty preceptor. The faculty preceptor is aware and concurs with the plan as stated in the body of this note and will attest to such by his/her cosignature. ATTENDING NOTE Patient was seen and examined by me this morning with the residents. Agree with the above assessment and plan SALLY RIOS-3 Mar 13, 2019 09:30 HAN YANG MD Mar 14, 2019 08:45
[2019-03-13] MEDS: amLODIPine 5 MG TAB PO SCH (10:40)
[2019-03-13] MEDS: LISINOPRIL 20 MG TAB PO SCH (10:40)
[2019-03-13 12:00] VITALS: BP 180/105
[2019-03-13 15:16] VITALS: BP 150/88
[2019-03-13] MEDS ORDERED: SLF 3 ML SYR IV PRN (17:00)
--- NOTE | 2019-03-13 20:42 | REPVR ---
PROCEDURE INFORMATION: Exam: MR Cervical Spine Without Contrast Exam date and time: 03/13/2019 7:45 PM Clinical history: 58 years old, male; Weakness; Additional info: Arm numbness/weakness TECHNIQUE: Imaging protocol: Multiplanar magnetic resonance images of the cervical spine without contrast. COMPARISON: MRI-Spine,Cervical without con 07/14/2017 11:26 AM FINDINGS: Vertebrae: Focus of increased signal on the left side of C5 with a hemangioma. Findings stable. Spinal cord: See C3-c4 Finding. C2-C3: No significant disc disease. No significant spinal stenosis. C3-C4: Small central disc protrusion at C3-C4 with minimal effacement of the ventral subarachnoid space. There is no cord edema. No foraminal stenosis. C4-C5: Minimal annular bulging at C4-C5 with a small posterior disc protrusion effacing the ventral subarachnoid space. No cord impingement. No foraminal stenosis. C5-C6: Broad posterior disc protrusion at C5-C6 effaces the ventral subarachnoid space with mild impingement of the ventral aspect of the spinal cord. Lateral foraminal components of the bulging annulus mildly narrow the neural foramina. C6-C7: Bulging annulus and small central disc protrusion at C6-C7 effaces the ventral subarachnoid space without cord impingement. No foraminal narrowing. C7-T1: No significant disc disease. No significant spinal stenosis. Vertebral arteries: Expected flow voids in the vertebral arteries. Soft tissues: Unremarkable. IMPRESSION: Mild degenerative spondylosis with bulging annuli and small disc protrusions from C3-C4 to C6-C7 resulting in varying degrees of effacement of the ventral subarachnoid space with mild cord impingement at C5-C6. Findings essentially unchanged in comparison to prior study. Electronically signed by: Priyank Stafford On 03/13/2019 20:42:11 PM
[2019-03-13] MEDS: ACETAMINOPHEN TAB 650MG DOSE (2X325MG) PO PRN (21:16)
--- NOTE | 2019-03-13 21:19 | ECHO ---
DATE OF PROCEDURE: 03/13/2019 AGE: 58 GENDER: Male HEIGHT: 65 inches WEIGHT: 207 pounds BODY SURFACE AREA: 2.01 m2 PATIENT LOCATION: Inpatient, PCU, room 3229 REFERRING PHYSICIAN: Derick Copeland MD INDICATION: TIA. Question cardiac source of embolic material. 2-D MEASUREMENTS: RV: 3.7 cm LV: 4.4 cm Septum: 1.3 cm Posterior wall: 1.3 cm Aortic root: 3.3 cm LA: 3.4 cm LVEF: 75% DOPPLER MEASUREMENTS: AV: 1.38 m/s LVOT: 1.0 cm LVOT diameter: 2.0 cm MV-E: 53, A: 83, EA ratio: 0.6 Early mitral deceleration time: 320 ms E prime: 7.3, A prime: 12.7 PV: 0.85 m/s Pulmonary artery acceleration time: 100 ms PASP: 38 mmHg COMMENTS Normal sinus rhythm without interventricular conduction disturbance. Technically challenging study in light of the patient's body habitus but some diagnostically useful information was still obtained. M-mode and two-dimensional echocardiography was performed with pulsed, continuous wave, color flow and tissue Doppler studies. Mild concentric left ventricle hypertrophy with hyperkinetic wall motion. Left atrial size upper limits of normal with Doppler evidence of an impairment of LV diastolic function but currently normal estimated mean left atrial pressure. Normal right heart chamber sizes and wall motion with Doppler sign of mild pulmonary hypertension. His inferior vena cava could not be visualized to further estimate his central venous pressure. Mild aortic valvular sclerosis without functional valvular abnormality. Normal-appearing mitral and tricuspid valvular structures without functional abnormality. No apparent intracardiac mass or pericardial effusion. Especially in light of this patient's body habitus, if a cardiac source of embolic material is seriously suspect transesophageal echocardiogram would have been the investigation of choice.
[2019-03-13] MEDS: SLF 3 ML SYR IV SCH (22:07)
[2019-03-13 23:59] VITALS: BP 170/100
[2019-03-14 04:00] VITALS: BP 166/94
[2019-03-14] MEDS: hydrALAZINE INJ 20 MG/ML VIAL IV SCH ×2 (06:00)
[2019-03-14] MEDS: SLF 3 ML SYR IV SCH (06:14)
[2019-03-14 08:00] VITALS: BP 195/97
[2019-03-14] MEDS: HumaLOG INSULIN (NovoLOG) PER UNIT SC SCH (08:12)
[2019-03-14] MEDS: CLOPIDOGREL 75 MG TAB PO SCH (08:12)
[2019-03-14] MEDS: PANTOPRAZOLE 40MG TAB (PROTONIX) PO SCH (08:13)
[2019-03-14] MEDS: ATORVASTATIN 20 MG TAB PO SCH (08:13)
[2019-03-14] MEDS: DOCUSATE SODIUM 100 MG CAP PO SCH (08:13)
[2019-03-14 08:14] VITALS: BP 195/97
[2019-03-14] MEDS: ACETAMINOPHEN TAB 650MG DOSE (2X325MG) PO PRN (08:14)
[2019-03-14] MEDS: ENOXAPARIN 40 MG/0.4 ML SYRINGE (J1650) SC SCH (08:14)
[2019-03-14] MEDS: LISINOPRIL 20 MG TAB PO SCH (08:14)
[2019-03-14] MEDS: amLODIPine 5 MG TAB PO SCH (08:14)
[2019-03-14] MEDS: METOPROLOL TARTRATE 100 MG TAB PO SCH (08:15)
--- NOTE | 2019-03-14 15:23 | DS.PDOC ---
Discharge Summary General Date of Admission Mar 12, 2019 at 15:13 Date of Discharge 03/14/19 Primary Care Physician: EDER STEVENSON DO Attending Physician: DERICK YANG MD Discharge Summary PROCEDURES PERFORMED DURING STAY: [None]. ADMITTING DIAGNOSES: 1. Possible Cerebral Vascular Accident 2. [place] Palsy 3. Dyslipidemia 4. HTN DISCHARGE DIAGNOSES: 1. PATIENT LEFT AGAINST MEDICAL ADVICE COMPLICATIONS/CHIEF COMPLAINT: Cerebral Vascular Accident. HISTORY OF PRESENT ILLNESS: Patient is a 58 year old male who presented to the [facility] ER with complaint of 2 days of progressive weakness on his left side. Patient states that the left side of his face was droopy and he had noticed slurring of his speech. The patient also admits to weakness of the right side of his face as well. The patient did mention at the time that he has a history of [place] Palsy on the left side of his face and the right side intermittently. He stated that he was evaluated by a Neurologist in the past however no cause was discerned. Patient denied any change in his gait from baseline. He denied any difficulty swallowing. The patient was admitted to hospitalist service for evaluation of possible CVA Once admitted the patient received imaging including a head CT, Vascular U/S, echocardiogram, and Brain MRI with no significant findings. Given patients bilateral symptoms a MRI of the cervical spine and thoracic spine was ordered. The patient had received a cervical Spine MRI which did not reveal any acute process. He had developed some anxiety and refused the thoracic MRI. When evaluated the patient stated that he would like to leave [facility] and that he no longer wants to be in the hospital. The patient was informed that a complete diagnosis has not been made regarding his condition and that leaving the hospital would be against medical advice and in doing so could result in harm to himself which includes but limited to . The patient voiced understanding that leaving the hospital would mean that he would not be fully diagnosed and treated. He agreed to the risk and requested to sign out AMA. Patient was informed that when he leaves he should follow-up with his PCP as soon as possible. He was instructed to return to the ER if he develops worsening of his symptoms. He was once again in agreement DISCHARGE MEDICATIONS: Please see below. ALLERGIES: Please see below. PHYSICAL EXAMINATION ON DISCHARGE: VITAL SIGNS: Please see below. GENERAL: Awake, alert, and oriented. Sitting in chair. Conversive HEENT: Atraumatic, normocephalic. Eyes are nonicteric. Left eye ptosis. NECK: No palpable cervical, axillary, or supraclavicular lymphadenopathy CARDIOVASCULAR EXAMINATION: Normal S1, S2. Regular rate and rhythm. No clicks rubs or murmurs RESPIRATORY EXAMINATION: Clear vesicular breath sounds bilaterally. No wheezes, rhonchi, or rales ABDOMINAL EXAMINATION: Obese, soft, nondistended. Nontender to palpation throughout. No rebound tenderness or guarding. Normoactive bowel sounds EXTREMITIES: trace edema. Full and equal pulses in bilateral upper and lower extremities SKIN: No rashes or lesions NEUROLOGICAL EXAMINATION: Left sided facial droop without central sparing consistent with bells palsy. Strength testing was 3-4/5 in bilateral upper and lower extremities. CN 2-12 were grossly intact. PSYCHIATRIC EXAMINATION: Mood and affect appear appropriate. Judgement and insight intact LABORATORY DATA: Please see below. IMAGING: CT BRAIN WITHOUT CONTRAST: HISTORY: Left-sided weakness. Comparison head CT study April 28, 2016. Comparison MRI brain study August 28, 2017. CT FINDINGS: Preliminary digital olericulturist radiograph is unremarkable. The patient is edentulous. Bone window settings demonstrate an intact bony calvarium. There is minimal vascular calcification in the distal internal carotid arteries. Visualized paranasal sinuses are clear. No intraorbital abnormality is appreciated. On soft tissue window settings, the lateral, third and fourth ventricles are normal in size and position. There is no evidence of intracranial hemorrhage. No extra-axial fluid collection is seen. No infarct or mass is observed. IMPRESSION: Negative noncontrast head CT. Portable chest, 12:47 p.m., single AP view with the patient upright: Comparison is 08/31/1929 teen. The lung cancino are clear. Cardiac size is enlarged, unchanged. The silvia, mediastinum, skeletal structures are unremarkable. Impression: Chronic cardiomegaly. No acute cardiopulmonary findings. Electronically Signed by Gabriele Diaz MD 03/12/2019 12:52 P PROCEDURE INFORMATION: Exam: US Duplex Bilateral Extracranial Arteries Exam date and time: 03/12/2019 5:40 PM Clinical history: 58 years old, male; Weakness, facial; Additional info: CVA TECHNIQUE: Imaging protocol: Real-time Duplex ultrasound scan of the Bilateral carotid and vertebral arteries combining selby scale, color Doppler and spectral waveform analysis. COMPARISON: No relevant prior studies available. FINDINGS: Right common carotid artery: Unremarkable. No occlusion or stenosis. Waveforms are normal. Right internal carotid artery: Unremarkable. No occlusion or stenosis. Waveforms are normal. Right ICA/CCA ratio: Within normal limits. 0.5. Right external carotid artery: No stenosis in the origin. Right vertebral artery: Not visualized. Left common carotid artery: Unremarkable. No occlusion or stenosis. Waveforms are normal. Left internal carotid artery: Unremarkable. No occlusion or stenosis. Waveforms are normal. Left ICA/CCA ratio: Within normal limits. 0.6. Left external carotid artery: No stenosis in the origin. Left vertebral artery: Unremarkable. Antegrade flow. IMPRESSION: 1. Less than 50% right ICA stenosis. 2. Less than 50% left ICA stenosis. 3. The left vertebral artery appears patent and antegrade. The right vertebral artery was not visualized. COMMENT: Carotid Stenosis Reference using SRU criteria: Mild: less than 50% stenosis. ICA PSV is less than 125 cm/second and plaque or intimal thickening is visible. Moderate: 50-69% stenosis. ICA PSV is 125 to 230 cm/second and plaque is visible. Severe: 70-94% stenosis. ICA PSV is more than 230 cm/second and visible plaque and lumen narrowing are seen. Near occlusion: 95-99% stenosis. ICA PSV is variable and significant plaque and luminal narrowing are seen. Occluded: 100% stenosis. No flow identified. Electronically signed by: Juanita Breaux On 03/12/2019 19:15:11 PM DD MRI brain without contrast: History: Left-sided weakness. CVA. Comparison brain MRI study August 28, 2017. Technique: Axial and sagittal imaging planes are utilized for T1 and T2- weighted scans. Sequences include spin-echo, fast spin echo, FLAIR, and diffusion weighted sequences. MRI findings: No bony calvarial lesion is appreciated. Craniocervical junction and upper cervical cord are unremarkable. No intraorbital abnormality is seen. There is no MR evidence of significant paranasal sinus disease. Diffusion weighted scans show no evidence to suggest acute ischemia. There is no evidence of intracranial hemorrhage. There are a few scattered subcortical and periventricular white matter foci of T2 hyperintensity consistent with small vessel changes. These are unchanged from the comparison MRI study of August 28, 2017. Study is otherwise unremarkable. Impression: Mild small vessel atherosclerotic changes unchanged from August 28, 2017. No acute intracranial abnormality. Electronically Signed by Wang Laureano MD 03/12/2019 07:24 P PROCEDURE INFORMATION: Exam: MR Cervical Spine Without Contrast Exam date and time: 03/13/2019 7:45 PM Clinical history: 58 years old, male; Weakness; Additional info: Arm numbness/weakness TECHNIQUE: Imaging protocol: Multiplanar magnetic resonance images of the cervical spine without contrast. COMPARISON: MRI-Spine,Cervical without con 07/14/2017 11:26 AM FINDINGS: Vertebrae: Focus of increased signal on the left side of C5 with a hemangioma. Findings stable. Spinal cord: See C3-c4 Finding. C2-C3: No significant disc disease. No significant spinal stenosis. C3-C4: Small central disc protrusion at C3-C4 with minimal effacement of the ventral subarachnoid space. There is no cord edema. No foraminal stenosis. C4-C5: Minimal annular bulging at C4-C5 with a small posterior disc protrusion effacing the ventral subarachnoid space. No cord impingement. No foraminal stenosis. C5-C6: Broad posterior disc protrusion at C5-C6 effaces the ventral subarachnoid space with mild impingement of the ventral aspect of the spinal cord. Lateral foraminal components of the bulging annulus mildly narrow the neural foramina. C6-C7: Bulging annulus and small central disc protrusion at C6-C7 effaces the ventral subarachnoid space without cord impingement. No foraminal narrowing. C7-T1: No significant disc disease. No significant spinal stenosis. Vertebral arteries: Expected flow voids in the vertebral arteries. Soft tissues: Unremarkable. IMPRESSION: Mild degenerative spondylosis with bulging annuli and small disc protrusions from C3-C4 to C6-C7 resulting in varying degrees of effacement of the ventral subarachnoid space with mild cord impingement at C5-C6. Findings essentially unchanged in comparison to prior study. Electronically signed by: Priyank Stafford On 03/13/2019 20:42:11 PM ECHOCARDIOGRAM [facility] NAME: ALLYN PERERA : 1960 MEDICAL REC #: [id number] ROOM: [facility] ACCOUNT: [id number] ORDERING DOCTOR: DERICK YANG MD PATIENT STATUS: ADM IN DICTATING DOCTOR: Sebastian Loo MD, [facility] REPORT #: [id number] cc: [~ rep ct ivnm] ECHOCARDIOGRAM-DOPPLER REPORT Printed: [~ rep prt dt last] [~ rep prt tm last] Page 2 of [address] [address] ECHOCARDIOGRAM-DOPPLER REPORT ECHOCARDIOGRAM-DOPPLER REPORT Printed: [~ rep prt dt last] [~ rep prt tm last] Page 1 of 1 DATE OF PROCEDURE: 03/13/2019 AGE: 58 GENDER: Male HEIGHT: 65 inches WEIGHT: 207 pounds BODY SURFACE AREA: 2.01 m2 PATIENT LOCATION: Inpatient, PCU, room 3229 REFERRING PHYSICIAN: Derick Copeland MD INDICATION: TIA. Question cardiac source of embolic material. 2-D MEASUREMENTS: RV: 3.7 cm LV: 4.4 cm Septum: 1.3 cm Posterior wall: 1.3 cm Aortic root: 3.3 cm LA: 3.4 cm LVEF: 75% DOPPLER MEASUREMENTS: AV: 1.38 m/s LVOT: 1.0 cm LVOT diameter: 2.0 cm MV-E: 53, A: 83, EA ratio: 0.6 Early mitral deceleration time: 320 ms E prime: 7.3, A prime: 12.7 PV: 0.85 m/s Pulmonary artery acceleration time: 100 ms PASP: 38 mmHg COMMENTS Normal sinus rhythm without interventricular conduction disturbance. Technically challenging study in light of the patient's body habitus but some diagnostically useful information was still obtained. M-mode and two-dimensional echocardiography was performed with pulsed, continuous wave, color flow and tissue Doppler studies. Mild concentric left ventricle hypertrophy with hyperkinetic wall motion. Left atrial size upper limits of normal with Doppler evidence of an impairment of LV diastolic function but currently normal estimated mean left atrial pressure. Normal right heart chamber sizes and wall motion with Doppler sign of mild pulmonary hypertension. His inferior vena cava could not be visualized to further estimate his central venous pressure. Mild aortic valvular sclerosis without functional valvular abnormality. Normal-appearing mitral and tricuspid valvular structures without functional abnormality. No apparent intracardiac mass or pericardial effusion. Especially in light of this patient's body habitus, if a cardiac source of embolic material is seriously suspect transesophageal echocardiogram would have been the investigation of choice. DD: Sebastian Loo MD, [facility] 03/13/191923 DT: [facility] 03/13/192111 DS: ANGELA 03/14/1948 <Electronically signed by Sebastian Loo > 09/26/19 0847 DS2: PROGNOSIS: PATIENT LEFT AGAINST MEDICAL ADVICE ACTIVITY: [As tolerated]. DISCHARGE PLAN: PATIENT LEFT AGAINST MEDICAL ADVICE. HE WAS ADVISED TO FOLLOW-UP WITH HIS PCP SOON POSSIBLE FOR FURTHER EVALUATION. HE WAS INSTRUCTED TO RETURN TO THE ED IF HIS SYMPTOMS WORSEN. PATIENT WAS COUNSELED ON THE RISKS OF LEAVING THE HOSPITAL WITHOUT A FORMAL DIAGNOSIS AND THE RISK OF ADVERSE HEALTH EVENTS INCLUDING . THE PATIENT VOICED UNDERSTANDING AND STATED HE WOULD LIKE TO LEAVE AGAINST MEDICAL ADVICE DISPOSITION: 07 Against Medical Advice. DISCHARGE CONDITION: [Stable]. TIME SPENT ON DISCHARGE: Greater than 45 minutes. Vital Signs/I&Os Vital Signs Date Time Temp Pulse Resp B/P (MAP) Pulse Ox O2 Delivery O2 Flow Rate FiO2 03/14/19 08:14 195/97 03/14/19 08:00 97.7 59 20 95 I&O- Last 24 Hours up to 6 AM 03/14/19 05:59 Intake Total 1020 ml Output Total 0 ml Balance 1020 ml Laboratory Data Labs 24H Laboratory Tests 2 03/13/19 16:48: Bedside Glucose (Misc Panel) 162H 03/13/19 20:28: Bedside Glucose (Misc Panel) 124H 03/14/19 07:55: Bedside Glucose (Misc Panel) 181H FSBS Laboratory Tests Test 03/13/19 16:48 03/13/19 20:28 03/14/19 07:55 Range/Units Bedside Glucose (Misc Panel) 162 124 181 70-105 MG/DL Discharge Medications Scheduled Amlodipine Besylate (Amlodipine Besylate) 5 Mg Tablet, 5 MG PO DAILY, (Reported) Bupropion Hcl (Bupropion HCl Sr) 150 Mg Tab, 150 MG PO QPM, (Reported) Cetirizine HCl (Cetirizine HCl) 10 Mg Tablet, 10 MG PO DAILY, (Reported) 1400 Fluticasone Propion/Salmeterol (Airduo Respiclick 113-14 Mcg) 1 Each Aer.pow.ba, 1 PUFF INH BID, (Reported) Glimepiride (Glimepiride) 2 Mg Tab, 2 MG PO BID, (Reported) Lisinopril (Lisinopril) 20 Mg Tab, 20 MG PO DAILY, (Reported) 1400 Metformin HCl (Metformin HCl ER) 500 Mg Tab.er.24h, 500 MG PO QPM, (Reported) Metoprolol Tartrate (Metoprolol Tartrate) 100 Mg Tab, 100 MG PO BID, (Reported) Naproxen (Naproxen) 500 Mg Tablet.dr, 500 MG PO BID, (Reported) Pantoprazole Sodium (Pantoprazole Sodium) 40 Mg Tablet.dr, 40 MG PO DAILY, (Reported) Pregabalin (Lyrica) 150 Mg Capsule, 150 MG PO BID, (Reported) Spironolactone (Spironolactone) 25 Mg Tablet, 25 MG PO DAILY, (Reported) Umeclidinium [place] (Incruse Ellipta) 62.5 Mcg Blst.w.dev, 1 PUFF INH DAILY, (Reported) Scheduled PRN Gabapentin (Neurontin) 600 Mg Tab, 600 MG PO TID PRN for PAIN, (Reported) Tizanidine HCl (Tizanidine HCl) 4 Mg Tablet, 4 MG PO QHS PRN for MUSCLE SPASMS, (Reported) Allergies Coded Allergies: aspirin (Verified Adverse Reaction, Mild, N/V, 01/25/19) GME ATTESTATION GME ATTESTATION My faculty preceptor for this patient encounter was physically present during the encounter and was fully available. All aspects of the patient interview, examination, medical decision making process, and medical care plan development were reviewed and approved by the faculty preceptor. The faculty preceptor is aware and concurs with the plan as stated in the body of this note and will attest to such by his/her cosignature. ATTENDING NOTE Patient was seen and examined by me this morning with the residents. Agree with the above assessment and plan ANA PAULA SANTIAGO DO Mar 14, 2019 15:23 DERICK YANG MD Mar 15, 2019 13:29
== END 2019-03-14 09:09 | disposition left against medical advice (07) | DRG 45 ==
LOC: EDBD 11:42 → M ED 11:42 → M ED INP 15:13 → M PCU 18:05
PROVIDERS: ADMIT Internal Medicine; ATTEND Internal Medicine
DX: I63.9 Cerebral infarction, unspecified (principal); I10 Essential (primary) hypertension; E11.9 Type 2 diabetes mellitus without complications; G51.0 Bell's palsy; E78.5 Hyperlipidemia, unspecified; Z79.899 Other long term (current) drug therapy; Z88.6 Allergy status to analgesic agent; Z87.891 Personal history of nicotine dependence

== ENCOUNTER → 2019-04-01 | Outpatient (CLI) | payer OTHER ==
[~2019-04-01] MED LIST changes: +AIRD1INH2 INH; +ALL10TAB29 PO; +AMLO5TAB6 PO; +GABA600T4 PO; +INCR1INH INH; +LYRI150C PO; +METF-723 PO; +NAPR500T6 PO; +SPIR-10 PO; +TIZA4TAB4 PO
== END ==
LOC: M PAIN 11:30
PROVIDERS: ATTEND Nurse Practitioner Family
DX: E11.42 Type 2 diabetes mellitus with diabetic polyneuropathy (principal); M46.1 Sacroiliitis, not elsewhere classified; G89.29 Other chronic pain; I10 Essential (primary) hypertension; G43.909 Migraine, unspecified, not intractable, without status migrainosus; E78.5 Hyperlipidemia, unspecified; Z86.19 Personal history of other infectious and parasitic diseases; Z87.891 Personal history of nicotine dependence; Z88.6 Allergy status to analgesic agent; Z79.84 Long term (current) use of oral hypoglycemic drugs; Z79.899 Other long term (current) drug therapy

== ENCOUNTER → 2019-04-18 | Outpatient (REF) | payer OTHER ==
[~2019-04-18] MED LIST changes: -GLIM2TAB PO; +GLIM2TAB2 PO
[2019-04-18 15:05] LABS: ALBUMIN 3.7 GM/DL (3.2-5.2); ALT/SGPT 54 U/L (12-78); BILIRUBIN,TOTAL 1.1 MG/DL (0.2-1.0); BLOOD UREA NITROGEN 18 MG/DL (7-18); CALCIUM LEVEL 9.3 MG/DL (8.5-10.1); CARBON DIOXIDE LEVEL 26 MEQ/L (21-32); CHLORIDE LEVEL 104 MEQ/L (98-107); CHOLESTEROL LEVEL 114 MG/DL (<200); CHOLESTEROL RISK RATIO 4.956 (<5); CREATININE FOR GFR 0.84 MG/DL (0.70-1.30); GLOMERULAR FILTRATION RATE > 60.0 (>56); GLUCOSE, FASTING 176 MG/DL (70-100); HDL CHOLESTEROL 23 MG/DL (>40); LDL CHOLESTEROL 13 MG/DL (<100); NON-HDL-C 91 MG/DL; SODIUM LEVEL 137 MEQ/L (136-145); TOTAL PROTEIN 7.3 GM/DL (6.4-8.2); TRIGLYCERIDES LEVEL 388 MG/DL (<150)
[2019-04-18 15:24] LABS: HEMOGLOBIN A1c 7.3 %
[2019-04-18 15:26] LABS: MAU/CREAT RATIO 8.7 MCG/MG (0.0-30.0)
[2019-04-22 14:19] LABS: HEPATITIS C QUANTITATION HCV Not Detected IU/mL (.)
== END ==
LOC: M LABDRAW1 14:34
PROVIDERS: ATTEND Internal Medicine Infectious Disease
DX: Z13.220 Encounter for screening for lipoid disorders (principal); B18.2 Chronic viral hepatitis C; E11.65 Type 2 diabetes mellitus with hyperglycemia; R31.9 Hematuria, unspecified

== ENCOUNTER → 2019-05-08 | Outpatient (CLI) | payer OTHER ==
[~2019-05-08] MED LIST changes: +BUPIVACAINE HCL 0.25% 30 ML VIAL As Ordered ONE; +ISOVUE-M 300 61% 15ML VIAL (Q9967) As Ordered ONE; +LIDOCAINE 1% SDV INJ 30 ML VIAL As Ordered ONE; +TRIAMCINOLONE ACETONIDE SUSP 40 MG/ML VIAL (J3301) As Ordered ONE; +diazePAM 5 MG TAB As Ordered ONE; +oxyCODONE 5MG TAB As Ordered ONE
--- NOTE | 2019-05-08 13:53 | REP ---
C-ARM VIEWS SACROILIAC JOINTS: CLINICAL HISTORY: Pain. Multiple C-arm views bilateral sacroiliac joints performed. A needle overlies each sacroiliac joint and a tiny amount of contrast is injected. 31 seconds of fluoroscopy time utilized. Electronically Signed by Gabriele Chu MD 05/09/2019 11:22 A
--- NOTE | 2019-05-16 02:03 | ECWPNPC ---
PATIENT NAME: ALLYN PERERA : 1960 GENDER: MALE VISIT DATE: 05/08/2019 DISCHARGE DATE: 05/08/19 1048 VISIT LOCKED DATE TIME: PHYSICIAN: KIARA MAYER MD RESOURCE: KIARA MAYER MD REASON FOR APPOINTMENT 1. BILATERAL SIJ HISTORY OF PRESENT ILLNESS HISTORY OF PRESENT ILLNESS: PAIN THE PATIENT DESCRIBES THE PAIN... FALL RISK SCREENING: SCREENING :NO FALLS REPORTED IN THE LAST YEAR CURRENT MEDICATIONS TAKING AMLODIPINE BESYLATE 10 MG TABLET 1 TABLET ORALLY ONCE A DAY, NOTES: 05/08 730 TAKING LISINOPRIL 20 MG TABLET 1 TAB ORALLY DAILY, NOTES: 05/07 1300 TAKING METOPROLOL TARTRATE 100 MG TABLET 1 TABLET WITH FOOD ORALLY TWICE A DAY, NOTES: 05/08 730 TAKING BUPROPION HCL ER (SR) 150 MG TABLET EXTENDED RELEASE 12 HOUR 1 TABLET ORALLY TWICE A DAY, NOTES: 05/07 1430 TAKING METFORMIN HCL 1000 MG TABLET 1 TABLET WITH MEALS ORALLY TWICE A DAY, NOTES: 05/07 2000 TAKING ZYRTEC ALLERGY 10 MG TABLET 1 TABLET ORALLY ONCE A DAY NEEDED, NOTES: 05/07 1300 TAKING FLONASE 50 MCG/ACT SUSPENSION 1 SPRAY IN EACH NOSTRIL NASALLY ONCE A DAY, NOTES: NONE RECENT TAKING TIZANIDINE HCL 4 MG TABLET 1 TABLET NEEDED ORALLY NEEDED FOR SPASMS AND PAIN BEFORE BEDTIME, NOTES: 05/07 2100 TAKING BLOOD GLUCOSE METER - KIT 1 METER DX:E11.65 TWICE DAILY TAKING BD LANCET ULTRAFINE 33G - MISCELLANEOUS 1 LANCET INTRADERMALLY TWICE DAILY DX:E11.65 TAKING BLOOD GLUCOSE TEST STRIP - STRIP 1 STRIP IN VITRO DX:E11.65 TWICE DAILY TAKING ALCOHOL PREP PAD 70 % PAD 1 TOPICALLY TWICE DAILY DX:E11.65 TAKING LISINOPRIL 20 MG TABLET TAKE ONE TABLET BY MOUTH EVERY DAY , NOTES: 05/07 1300 TAKING OMEPRAZOLE 20 MG CAPSULE DELAYED RELEASE 1 CAPSULE ORALLY BID, NOTES: 05/07 2000 TAKING CAPSAICIN 0.025 % CREAM 1 APPLICATION TO AFFECTED AREA NEEDED EXTERNALLY THREE TIMES A DAY, NOTES: 05/07 1400 TAKING COMPRESSION STOCKINGS 15-20 MMHG DIRECTED DX: I87.2 DAILY TAKING CLONAZEPAM 0.5 MG TABLET 1 TABLET AT BEDTIME ORALLY ONCE A DAY, NOTES: 05/07 2130 TAKING PRAZOSIN HCL 1 MG CAPSULE 1 CAPSULE AT BEDTIME ORALLY ONCE A DAY, NOTES: 05/07 2100 TAKING ATORVASTATIN CALCIUM 80 MG TABLET 1 TABLET ORALLY ONCE A DAY, NOTES: 05/07 1700 TAKING GLIMEPIRIDE 2 MG TABLET TAKE 1 TAB WITH BREAKFAST ORALLY DAILY, NOTES: 05/07 2000 TAKING LYRICA 300 MG CAPSULE 1 CAPSULE 1 TO 3 HOURS BEFORE BEDTIME IN THE EVENING ORALLY BID, NOTES: 05/07 2000 NOT-TAKING GLIMEPIRIDE 1 MG TABLET 1 TABLET WITH BREAKFAST OR THE FIRST MAIN MEAL OF THE DAY ORALLY ONCE A DAY ALONG WITH THE 2 MG GLIMEPIRIDE TABLET; MDD: 3 MG DISCONTINUED METOPROLOL TARTRATE 100 MG TABLET 1 TABLET WITH FOOD ORALLY TWICE A DAY, NOTES: DUPLICATE DISCONTINUED AMLODIPINE BESYLATE 5 MG TABLET 1 TABLET ORALLY ONCE A DAY, NOTES: DUPLICATE DISCONTINUED METFORMIN HCL ER 500 MG TABLET EXTENDED RELEASE 24 HOUR 1 TABLET WITH EVENING MEAL ORALLY ONCE A DAY, NOTES: DUPLICATE MEDICATION LIST REVIEWED AND RECONCILED WITH THE PATIENT PAST MEDICAL HISTORY HTN SHORT''S PALSY UNSPECIFIED ESSENTIAL HYPERTENSION NONDEPENDENT TOBACCO USE DISORDER SMOKING MIGRAINE WITHOUT AURA, WITH INTRACTABLE MIGRAINE, SO STATED, WITHOUT MENTION OF STATUS MIGRAINOSUS ALLERGIC CONJUNCTIVITIS HYPERLIPIDEMIA ESSENTIAL HYPERTENSION ASCVD10 (2016)- 11.5% DIEBETIC TYPE 2 EPIDIDYMITIS HEPATITIS C CHRONIC WITH LIVER CIRRHOSIS TREATED WITH 12 WEEKS MAVYRET HEP C IS CURED HYPERLIPIDEMIA CERVICALGIA PTSD SACROILIITIS HERPESVIRAL INFECTION OF UROGENITAL SYSTEM BALANITIS LUMBAR SPONDYLOSIS PIRIFORMIS MUSCLE PAIN ALLERGIES ASPIR-81: VOMITING - SIDE EFFECTS SURGICAL HISTORY RIGHT EPIDIDYMAL CYST REMOVAL 07/08/[address] ROBIN 08/2016 LEFT INGUINAL HERNIA 02/10/2017 PRIFORMIS MUSCLE INJECTION -RIGHT-[facility] 12/28/2016 BILATIERAL INGUINAL HERNIA REPAIR 02/10/17 RIGHT HERNIA REPAIR 06/2017 FAMILY HISTORY FATHER: , DIAGNOSED WITH HYPERTENSION MOTHER: , DIABETES SIBLINGS: ALIVE DAUGHTER(S): ALIVE 1 BROTHER(S) , 2 SISTER(S) . 2DAUGHTER(S) . SOCIAL HISTORY GENERAL: TOBACCO USE ARE YOU A:FORMER SMOKER HOW LONG HAS IT BEEN SINCE YOU LAST SMOKED?6-12 MONTHS SMOKING CESSATION INFORMATION GIVEN04/01/2019 HIV / HEP-C SCREENING HIV TEST OFFERED TO PATIENT:YES DATE OFFERED:10/06/2016 TEST ACCEPTED:NO HEP-C TEST OFFERED TO PATIENT:YES DATE OFFERED:10/06/2016 REASON:PATIENT DECLINED TEST ACCEPTED:NO REASON:PATIENT DECLINED OTHERS AT HOME: GIRLFRIEND. EDUCATION LEVEL OF EDUCATION:NOT FINISHED COLLEGE DIET: REGULAR. LANGUAGE CITIZEN OF [place] AND [place]. DOMESTIC VIOLENCE DO YOU FEEL SAFE IN YOUR ENVIRONMENT?YES BMI CARE GOAL FOLLOW-UP ABOVE NORMAL BMI FOLLOW-UPLIFESTYLE EDUCATION REGARDING DIET RECREATIONAL DRUG USE DRUG USE?NO EXERCISE: NO REGULAR EXERCISE. LEARNING BARRIERS / SPECIAL NEEDS CHANGE FROM LAST VISIT?YES BARRIERS TO LEARNING?NO HEARING IMPAIRED?NO VISION IMPAIRED?YES COGNITIVELY IMPAIRED?NO :CORRECTIVE LENSES READINESS TO LEARN?YES LEARNING PREFERENCES?NO LEARNING CAPABILITIES PRESENT?YES EMOTIONAL BARRIERS?NO SPECIAL DEVICES?NO VISITING HOUSEKEEPER NEEDED?NO PAIN CLINIC PFS, CLERGY, PUBLIC HEALTH REFERRALS PFS REFERRAL NEEDED?NO CLERGY REFERRAL NEEDED?NO PUBLIC HEALTH REFERRAL NEEDED?NO WAS THE PROVIDER NOTIFIED OF ANY PERTINENT INFO?YES N/A HAS THE PATIENT BEEN EDUCATED REGARDING HIS/HER PLAN OF CARE?YES HAS THE PATIENT BEEN EDUCATED REGARDING PAIN, THE RISK FOR PAIN, THE IMPORTANCE OF EFFECTIVE PAIN MANAGEMENT, AND THE PAIN ASSESSMENT PROCESS?YES LATEX QUESTIONNAIRE LATEX ALLERGY : HAVE YOU EVER DEVELOPED ANY TYPE OF REACTION AFTER HANDLING LATEX PRODUCTS SUCH RUBBER GLOVES, CONDOMS, DIAPHRAGMS, BALLOONS, SOCKS, OR UNDERWEAR?NO LATEX ALLERGY : HAVE YOU EVER DEVELOPED ANY TYPE OF REACTION DURING OR AFTER DENTAL APPOINTMENT, VAGINAL/RECTAL EXAMINATION, SURGICAL PROCEDURE, OR ANY OTHER EXPOSURE?NO LATEX RISK : HAVE YOU EVER HAD ANY DIFFICULTY BREATHING OR HIVES AFTER EATING OR HANDLING ANY FRUITS, OR VEGETABLES; SUCH KIWI, BANANAS, STONE FRUITS, OR CHESTNUTSNO LATEX RISK : DO YOU HAVE A PREVIOUS PERSONAL HISTORY OF MORE THAN NINE SURGERIES, SPINA BIFIDA, OR REPEATED CATHERIZATIONS? NO LATEX RISK : ARE YOU FREQUENTLY EXPOSED TO LATEX PRODUCTS IN YOUR OCCUPATION?NO DATE ASKED : 05/08/2019 CAFFEINE CAFFEINE USE?YES ADVANCE DIRECTIVE ADVANCE DIRECTIVE DISCUSSED WITH PATIENT:YES YES, PT STATES HCP IS TANNER PERERA - DAUGHTER [phone] HOLINESS [id number] MORMON MARITAL STATUS: SINGLE. 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 SEXUAL HX HAD SEX IN THE LAST 12 MONTHS (VAGINAL, ORAL, OR ANAL)?YES WITHWOMEN ONLY PREVENTION STRATEGIES DISCUSSED:CONDOMS USE PROTECTION?NO HAVE YOU EVER HAD AN STD?NO PT STATES HE IS CUTTING DOWN ON SMOKING ALOT DOWN TO 2 DAILY11/27/17 1045 REVIEWED WITH PT. ADLREVIEWED WITH PT 03/01/18 1450 LASREVIEWED WITH PT 04/30/18 1106 BVREVIEWED WITH PATIENT 07/19/18 1058 JS05/08/19 REVIEWED WITH PT. ALFONSO WTIH PT 09/11/18 1324 BVREVIEWED WITH PT 10/25/18 1300 LAS. HOSPITALIZATION/MAJOR DIAGNOSTIC PROCEDURE HYPOTENSIVE AND HYPERGLYCEMIA 08/2018 FACIAL DROOPING, POSSIBLE STROKE/SHORT'S PALSY 02/2019 REVIEW OF SYSTEMS REVIEWED BY: PROVIDER: . CONSTITUTIONAL: ANY CHANGE IN YOUR MEDICAL CONDITION? NO . CHILLS NO . FEVER NO . INFECTION: DO YOU HAVE NEW INFECTIONS? NO . DO YOU HAVE HISTORY OF MRSA? NO . MUSCULOSKELETAL: ANY NEW PATTERNS OF PAIN OR NUMBNESS? NO . GASTROENTEROLOGY: ANY NEW CHANGE IN BOWEL CONTROL? NO . GENITOURINARY: ANY NEW CHANGE IN BLADDER CONTROL? NO . IS THERE A CHANCE YOU COULD BE ? NO . HEMATOLOGY/LYMPH: DO YOU TAKE ANY BLOOD THINNERS? (FOR EXAMPLE- COUMADIN, PLAVIX, AGGRENOX, PLATEL, PRADAXA, OR XARELTO) NO . WHEN WAS YOUR LAST DOSE? DATE: TIME: . NEUROLOGY: HAVE YOU FALLEN IN THE PAST 12 MONTHS? YES, A COUPLE OF TIMES-LOST HIS BALANCE IN THE SHOWER. NOW HAS A CHAIR TO USE. . ANY NEW EXTREMITY NUMBNESS OR WEAKNESS? NO . CARDIOLOGY: DO YOU HAVE A PACEMAKER OR DEFIBRILLATOR? NO . RESPIRATORY: HAVE YOU BEEN SICK IN THE PAST WEEK? NO . FEVER NO . FLU LIKE SYMPTOMS? NO . COUGH NO . INTEGUMENTARY: DO YOU HAVE ANY RASHES OR OPEN SORES? NO . ALLERGIC/IMMUNO: ARE YOU ALLERGIC TO IV DYE? NO . ANY NEW ALLERGIES? NO . PSYCHIATRIC: DO YOU HAVE THOUGHTS OF HURTING YOURSELF OR SOMEONE ELSE? NO . ARE YOU ABUSED, NEGLECTED, OR IN AN UNSAFE ENVIRONMENT? NO . ENDOCRINOLOGY: ARE YOU DIABETIC? YES FSBS @ 0730 WAS 123 . OTHER: DO YOU NEED ANY PRESCRIPTIONS? NO . IF YES, PLEASE LIST: ____ . ANY NEW PROBLEMS WITH YOUR MEDICATIONS? NO . WHEN DID YOU LAST EAT? 05/07 2035 . WHEN DID YOU LAST DRINK? 11/20 0735 . WHAT DID YOU LAST DRINK? SIP OF WATER WITH MEDS . NAME OF PERSON DRIVING YOU HOME? [employer] . DO YOU HAVE ANY OTHER QUESTIONS OR CONCERNS YES, COULD HE GET SOMA FOR THE NEXT 3-5 DAYS DUE TO THE PAIN WAKING HIM UP. PT HAS NOT HAD ANY VACCINES IN THE PAST 30 DAYS . VITAL SIGNS WT 210 LBS, HT 66 IN, BMI 33.89 INDEX, BP 156/93 MM HG, HR 52 /MIN, RR 18 /MIN, TEMP 97.7 F, OXYGEN SAT % 97%, SAFE IN ENV? (Y/N) Y, NA INITIALS SC 08:52, REVIEWED BY: AD. ASSESSMENTS SACROILIITIS, NOT ELSEWHERE CLASSIFIED - M46.1 (PRIMARY) TREATMENT SACROILIITIS, NOT ELSEWHERE CLASSIFIED [facility] FLUORO GUIDANCE (PAIN)[id number] PROCEDURES PN SI PRE PROCEDURE DIAGNOSIS SACROILIITIS, SACROILIAC JOINT DYSFUNCTION POST PROCEDURE DIAGNOSIS SACROILIITIS, SACROILIAC JOINT DYSFUNCTION PROCEDURE BILATERAL SACROILIAC JOINT BLOCK SURGEON DR. KIARA MAYER CVT RN NONE ANESTHESIA LOCAL PRE PROCEDURE NOTE PATIENT WITH HISTORY OF CHRONIC LOW BACK PAIN. I EVALUATED THE PATIENT AND REVIEWED THE CHART. I WENT OVER THE RISKS, ALTERNATIVES, AND BENEFITS ASSOCIATED WITH THIS PROCEDURE. THE PATIENT WOULD LIKE TO PROCEED AND GAVE CONSENT TO PERFORM THE PROCEDURE. THE PATIENT DENIES UNEXPLAINABLE WEIGHT LOSS, FEVER, CHILLS, OR NEW CHANGES IN URINARY OR BOWEL CONTROL DESCRIPTION OF PROCEDURE THE PATIENT WAS BROUGHT TO THE PROCEDURE ROOM AND PLACED IN THE PRONE POSITION. THE LUMBOSACRAL AREA WAS CLEANED WITH CHLORAPREP SOLUTION AND DRAPED ASEPTICALLY. THE PROCEDURE WAS DONE UNDER STERILE CONDITIONS. I CHECKED LATERALITY AND THE LEVEL WHERE THE PROCEDURE WAS GOING TO BE PERFORMED WITH THE PATIENT AND THE SUPPORTING STAFF AT THE MOMENT OF THE TIME OUT IN THE PROCEDURE ROOM. UNDER FLUOROSCOPIC GUIDANCE, TARGET POINT WAS SELECTED AT THE LOWER BORDER OF THE RIGHT AND LEFT SACROILIAC JOINT. TARGET POINT WAS SELECTED AFTER MEDIAL ROTATION AND TILT OF THE MAGNIFIER OF THE C-ARM. LIDOCAINE WAS USED TO NUMB THE SKIN AND SUBCUTANEOUS TISSUE BELOW IT. A SPINAL NEEDLE, 22-GAUGE, WAS ADVANCED UNDER FLUOROSCOPIC GUIDANCE AND FOLLOWING PATIENT FEEDBACK UNTIL THE TARGET AREA WAS TOUCHED. THE POSITION OF THE NEEDLE WAS VERIFIED WITH AP AND LATERAL VIEWS. AFTER PROPER POSITION OF THE NEEDLE WAS ACHIEVED, ISOVUE M DYE 30%, 0.25 ML, WAS INJECTED SHOWING SPREAD OF THE DYE. THEN, A SOLUTION OF 30 MG OF KENALOG WAS INJECTED IN RIGHT AND LEFT JOINT WITH 3 ML OF BUPIVACAINE 0.125%. THERE WAS NO EVIDENCE OF BLOOD, PARESTHESIA OR CEREBROSPINAL FLUID DURING THE PROCEDURE. THE PATIENT WAS SENT TO THE RECOVERY ROOM. THE PATIENT WAS MOVING THE EXTREMITIES AND DOING WELL. THERE WAS NO COMPLICATION DURING THE PROCEDURE. FLUOROSCOPY TIME WAS 31 SECONDS POST PROCEDURE NOTE THE PATIENT WILL BE SEEN IN A FOLLOW UP IN THE NEXT FEW WEEKS. INSTRUCTIONS WERE GIVEN, QUESTIONS WERE ANSWERED, AND THE PATIENT EXPRESSED UNDERSTANDING AND AGREED WITH THE PLAN. I, PADMINI HEARN, DOCUMENTED THE ABOVE INFORMATION ACTING A SCRIBE FOR DR. MAYER. I HAVE REVIEWED THE ABOVE DOCUMENT, WRITTEN BY PADMINI HEARN SCRIBAilyn AND I VERIFY THAT IT IS ACCURATE. PROCEDURE CODES 94380 INJECT SACROILIAC JOINT, MODIFIERS: 50 [id number] RADXPS IN END [id number] PXD DISPOSITION & COMMUNICATION FOLLOW UP 3 WEEKS ELECTRONICALLY SIGNED BY KIARA MAYER MD, MD ON 05/15/2019 AT 03:45 PM EST DISCLAIMER : THIS IS A VISIT SUMMARY EXTRACTED FROM THE [employer] CHART. IT IS NOT A COPY OF THE [employer] PROGRESS NOTE. MTDD
== END ==
LOC: M PAIN 08:30
PROVIDERS: ATTEND Anesthesiology
DX: M46.1 Sacroiliitis, not elsewhere classified (principal); I10 Essential (primary) hypertension; G43.909 Migraine, unspecified, not intractable, without status migrainosus; E78.5 Hyperlipidemia, unspecified; E11.9 Type 2 diabetes mellitus without complications; Z86.59 Personal history of other mental and behavioral disorders; Z87.891 Personal history of nicotine dependence; Z88.6 Allergy status to analgesic agent; Z79.84 Long term (current) use of oral hypoglycemic drugs; Z79.899 Other long term (current) drug therapy
CPT/HCPCS: 27096; J3301; Q9967

== ENCOUNTER → 2019-05-22 | Outpatient (CLI) | payer OTHER ==
[~2019-05-22] MED LIST changes: -BUPIVACAINE HCL 0.25% 30 ML VIAL As Ordered ONE; -ISOVUE-M 300 61% 15ML VIAL (Q9967) As Ordered ONE; -LIDOCAINE 1% SDV INJ 30 ML VIAL As Ordered ONE; -TRIAMCINOLONE ACETONIDE SUSP 40 MG/ML VIAL (J3301) As Ordered ONE; -diazePAM 5 MG TAB As Ordered ONE; -oxyCODONE 5MG TAB As Ordered ONE
--- NOTE | 2019-06-06 04:47 | ECWPNPC ---
PATIENT NAME: ALLYN PERERA : 1960 GENDER: MALE VISIT DATE: 05/22/2019 DISCHARGE DATE: 05/22/19 1106 VISIT LOCKED DATE TIME: PHYSICIAN: ALFA CARRASCO RESOURCE: ALFA CARRASCO REASON FOR APPOINTMENT 1. POST SIJ HISTORY OF PRESENT ILLNESS HISTORY OF PRESENT ILLNESS: HERE FOR POST PROCEDURE VISIT.HAD BILAT SIJ ON 05/08/19.REPORTING MARKED REDUCTION IN PAIN THAT CONTINUES TODAY.CHIEF AREA OF PAIN IS RIGHT NECK.RATING PAIN VAS 2/10 ACROSS LOW BACK.STATES RIGHT NECK PAIN IS CONSTANT MODERATE PAIN THAT IS AGGREVATED WITH ROJM NECK.HAS RESPONDED WELL TO TPI IN THE PAST FOR RIGHT NECK PAIN. PAIN THE PATIENT DESCRIBES THE PAIN... FALL RISK SCREENING: SCREENING :NO FALLS REPORTED IN THE LAST YEAR CURRENT MEDICATIONS TAKING AMLODIPINE BESYLATE 10 MG TABLET 1 TABLET ORALLY ONCE A DAY TAKING METOPROLOL TARTRATE 100 MG TABLET 1 TABLET WITH FOOD ORALLY TWICE A DAY TAKING GLIMEPIRIDE 1 MG TABLET 1 TABLET WITH BREAKFAST OR THE FIRST MAIN MEAL OF THE DAY ORALLY ONCE A DAY ALONG WITH THE 2 MG GLIMEPIRIDE TABLET; MDD: 3 MG TAKING METFORMIN HCL 1000 MG TABLET 1 TABLET WITH MEALS ORALLY TWICE A DAY TAKING BUPROPION HCL ER (SR) 150 MG TABLET EXTENDED RELEASE 12 HOUR 1 TABLET ORALLY TWICE A DAY TAKING ZYRTEC ALLERGY 10 MG TABLET 1 TABLET ORALLY ONCE A DAY NEEDED TAKING FLONASE 50 MCG/ACT SUSPENSION 1 SPRAY IN EACH NOSTRIL NASALLY ONCE A DAY TAKING TIZANIDINE HCL 4 MG TABLET 1 TABLET NEEDED ORALLY NEEDED FOR SPASMS AND PAIN BEFORE BEDTIME TAKING BLOOD GLUCOSE METER - KIT 1 METER DX:E11.65 TWICE DAILY TAKING BD LANCET ULTRAFINE 33G - MISCELLANEOUS 1 LANCET INTRADERMALLY TWICE DAILY DX:E11.65 TAKING ALCOHOL PREP PAD 70 % PAD 1 TOPICALLY TWICE DAILY DX:E11.65 TAKING OMEPRAZOLE 20 MG CAPSULE DELAYED RELEASE 1 CAPSULE ORALLY BID TAKING COMPRESSION STOCKINGS 15-20 MMHG DIRECTED DX: I87.2 DAILY TAKING CLONAZEPAM 0.5 MG TABLET 1 TABLET AT BEDTIME ORALLY ONCE A DAY TAKING PRAZOSIN HCL 1 MG CAPSULE 1 CAPSULE AT BEDTIME ORALLY ONCE A DAY TAKING ATORVASTATIN CALCIUM 80 MG TABLET 1 TABLET ORALLY ONCE A DAY TAKING GLIMEPIRIDE 2 MG TABLET TAKE 1 TAB WITH BREAKFAST ORALLY DAILY TAKING LYRICA 300 MG CAPSULE 1 CAPSULE 1 TO 3 HOURS BEFORE BEDTIME IN THE EVENING ORALLY BID TAKING CAPSAICIN 0.025 % CREAM 1 APPLICATION TO AFFECTED AREA NEEDED EXTERNALLY OB LOWER EXT BILATERAL THREE TIMES A DAY TAKING BLOOD GLUCOSE TEST STRIP - STRIP 1 STRIP IN VITRO DX:E11.65 TWICE DAILY TAKING CETIRIZINE HCL 10 MG TABLET 1 TABLET ORALLY ONCE A DAY TAKING LISINOPRIL 20 MG TABLET TAKE ONE TABLET BY MOUTH EVERY DAY DISCONTINUED SOMA 350 MG TABLET 1 TABLET NEEDED ORALLY QHS PRN X5 DAYS POST PROCEDURE MEDICATION LIST REVIEWED AND RECONCILED WITH THE PATIENT PAST MEDICAL HISTORY HTN SHORT''S PALSY UNSPECIFIED ESSENTIAL HYPERTENSION NONDEPENDENT TOBACCO USE DISORDER SMOKING MIGRAINE WITHOUT AURA, WITH INTRACTABLE MIGRAINE, SO STATED, WITHOUT MENTION OF STATUS MIGRAINOSUS ALLERGIC CONJUNCTIVITIS HYPERLIPIDEMIA ESSENTIAL HYPERTENSION ASCVD10 (2016)- 11.5% DIEBETIC TYPE 2 EPIDIDYMITIS HEPATITIS C CHRONIC WITH LIVER CIRRHOSIS TREATED WITH 12 WEEKS MAVYRET HEP C IS CURED HYPERLIPIDEMIA CERVICALGIA PTSD SACROILIITIS HERPESVIRAL INFECTION OF UROGENITAL SYSTEM BALANITIS LUMBAR SPONDYLOSIS PIRIFORMIS MUSCLE PAIN ALLERGIES ASPIR-81: VOMITING - SIDE EFFECTS SURGICAL HISTORY RIGHT EPIDIDYMAL CYST REMOVAL 07/08/[address] ROBIN 08/2016 LEFT INGUINAL HERNIA 02/10/2017 PRIFORMIS MUSCLE INJECTION -RIGHT-[facility] 12/28/2016 BILATIERAL INGUINAL HERNIA REPAIR 02/10/17 RIGHT HERNIA REPAIR 06/2017 FAMILY HISTORY FATHER: , DIAGNOSED WITH HYPERTENSION MOTHER: , DIABETES SIBLINGS: ALIVE DAUGHTER(S): ALIVE 1 BROTHER(S) , 2 SISTER(S) . 2DAUGHTER(S) . SOCIAL HISTORY GENERAL: TOBACCO USE ARE YOU A:FORMER SMOKER HOW LONG HAS IT BEEN SINCE YOU LAST SMOKED?6-12 MONTHS SMOKING CESSATION INFORMATION GIVEN04/01/2019 HIV / HEP-C SCREENING HIV TEST OFFERED TO PATIENT:YES DATE OFFERED:10/06/2016 TEST ACCEPTED:NO HEP-C TEST OFFERED TO PATIENT:YES DATE OFFERED:10/06/2016 REASON:PATIENT DECLINED TEST ACCEPTED:NO REASON:PATIENT DECLINED OTHERS AT HOME: GIRLFRIEND. EDUCATION LEVEL OF EDUCATION:NOT FINISHED COLLEGE DIET: REGULAR. LANGUAGE GRENADIAN. DOMESTIC VIOLENCE DO YOU FEEL SAFE IN YOUR ENVIRONMENT?YES BMI CARE GOAL FOLLOW-UP ABOVE NORMAL BMI FOLLOW-UPLIFESTYLE EDUCATION REGARDING DIET RECREATIONAL DRUG USE DRUG USE?NO EXERCISE: NO REGULAR EXERCISE. LEARNING BARRIERS / SPECIAL NEEDS CHANGE FROM LAST VISIT?YES BARRIERS TO LEARNING?NO HEARING IMPAIRED?NO VISION IMPAIRED?YES COGNITIVELY IMPAIRED?NO :CORRECTIVE LENSES READINESS TO LEARN?YES LEARNING PREFERENCES?NO LEARNING CAPABILITIES PRESENT?YES EMOTIONAL BARRIERS?NO SPECIAL DEVICES?NO CERTIFIED ALCOHOL COUNSELOR NEEDED?NO PAIN CLINIC PFS, CLERGY, PUBLIC HEALTH REFERRALS PFS REFERRAL NEEDED?NO CLERGY REFERRAL NEEDED?NO PUBLIC HEALTH REFERRAL NEEDED?NO WAS THE PROVIDER NOTIFIED OF ANY PERTINENT INFO?YES N/A HAS THE PATIENT BEEN EDUCATED REGARDING HIS/HER PLAN OF CARE?YES HAS THE PATIENT BEEN EDUCATED REGARDING PAIN, THE RISK FOR PAIN, THE IMPORTANCE OF EFFECTIVE PAIN MANAGEMENT, AND THE PAIN ASSESSMENT PROCESS?YES LATEX QUESTIONNAIRE LATEX ALLERGY : HAVE YOU EVER DEVELOPED ANY TYPE OF REACTION AFTER HANDLING LATEX PRODUCTS SUCH RUBBER GLOVES, CONDOMS, DIAPHRAGMS, BALLOONS, SOCKS, OR UNDERWEAR?NO LATEX ALLERGY : HAVE YOU EVER DEVELOPED ANY TYPE OF REACTION DURING OR AFTER DENTAL APPOINTMENT, VAGINAL/RECTAL EXAMINATION, SURGICAL PROCEDURE, OR ANY OTHER EXPOSURE?NO DATE ASKED : 05/08/2019 LATEX RISK : HAVE YOU EVER HAD ANY DIFFICULTY BREATHING OR HIVES AFTER EATING OR HANDLING ANY FRUITS, OR VEGETABLES; SUCH KIWI, BANANAS, STONE FRUITS, OR CHESTNUTSNO LATEX RISK : DO YOU HAVE A PREVIOUS PERSONAL HISTORY OF MORE THAN NINE SURGERIES, SPINA BIFIDA, OR REPEATED CATHERIZATIONS? NO LATEX RISK : ARE YOU FREQUENTLY EXPOSED TO LATEX PRODUCTS IN YOUR OCCUPATION?NO CAFFEINE CAFFEINE USE?YES ADVANCE DIRECTIVE ADVANCE DIRECTIVE DISCUSSED WITH PATIENT:YES YES, PT STATES HCP IS TANNER PERERA - DAUGHTER [phone] CATHOLIC [id number] CAODAISM MARITAL STATUS: SINGLE. 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 SEXUAL HX HAD SEX IN THE LAST 12 MONTHS (VAGINAL, ORAL, OR ANAL)?YES WITHWOMEN ONLY PREVENTION STRATEGIES DISCUSSED:CONDOMS USE PROTECTION?NO HAVE YOU EVER HAD AN STD?NO PT STATES HE IS CUTTING DOWN ON SMOKING ALOT DOWN TO 2 DAILY11/27/17 1045 REVIEWED WITH PT. ADLREVIEWED WITH PT 03/01/18 1450 LASREVIEWED WITH PT 04/30/18 1106 BVREVIEWED WITH PATIENT 07/19/18 1058 JS05/08/19 REVIEWED WITH PT. ADREVIEWED WTIH PT 09/11/18 1324 BVREVIEWED WITH PT 10/25/18 1300 LAS. HOSPITALIZATION/MAJOR DIAGNOSTIC PROCEDURE HYPOTENSIVE AND HYPERGLYCEMIA 08/2018 FACIAL DROOPING, POSSIBLE STROKE/SHORT'S PALSY 02/2019 REVIEW OF SYSTEMS REVIEWED BY: PROVIDER: ALFA JIMENEZ . CONSTITUTIONAL: ANY CHANGE IN YOUR MEDICAL CONDITION? NO . CHILLS NO . FEVER NO . INFECTION: DO YOU HAVE NEW INFECTIONS? NO . DO YOU HAVE HISTORY OF MRSA? NO . MUSCULOSKELETAL: ANY NEW PATTERNS OF PAIN OR NUMBNESS? NO . GASTROENTEROLOGY: ANY NEW CHANGE IN BOWEL CONTROL? NO . GENITOURINARY: ANY NEW CHANGE IN BLADDER CONTROL? NO . IS THERE A CHANCE YOU COULD BE ? NO . HEMATOLOGY/LYMPH: DO YOU TAKE ANY BLOOD THINNERS? (FOR EXAMPLE- COUMADIN, PLAVIX, AGGRENOX, PLATEL, PRADAXA, OR XARELTO) NO . WHEN WAS YOUR LAST DOSE? DATE: TIME: . NEUROLOGY: HAVE YOU FALLEN IN THE PAST 12 MONTHS? NO . ANY NEW EXTREMITY NUMBNESS OR WEAKNESS? YES, OCCASIONALLY LEGS FEEL HEAVY . CARDIOLOGY: DO YOU HAVE A PACEMAKER OR DEFIBRILLATOR? NO . RESPIRATORY: HAVE YOU BEEN SICK IN THE PAST WEEK? NO . FEVER NO . FLU LIKE SYMPTOMS? NO . COUGH NO . INTEGUMENTARY: DO YOU HAVE ANY RASHES OR OPEN SORES? NO . ALLERGIC/IMMUNO: ARE YOU ALLERGIC TO IV DYE? NO . ANY NEW ALLERGIES? NO . PSYCHIATRIC: DO YOU HAVE THOUGHTS OF HURTING YOURSELF OR SOMEONE ELSE? NO . ARE YOU ABUSED, NEGLECTED, OR IN AN UNSAFE ENVIRONMENT? NO . ENDOCRINOLOGY: ARE YOU DIABETIC? YES . OTHER: DO YOU NEED ANY PRESCRIPTIONS? NO . IF YES, PLEASE LIST: ____ . ANY NEW PROBLEMS WITH YOUR MEDICATIONS? NO . WHEN DID YOU LAST EAT? ____ . WHEN DID YOU LAST DRINK? ____ . WHAT DID YOU LAST DRINK? ____ . NAME OF PERSON DRIVING YOU HOME? ____ . DO YOU HAVE ANY OTHER QUESTIONS OR CONCERNS BACK OF MY HEAD FEELS LIKE I'M BEING HIT IN HEAD WITH A BAT ONLY IN EVENING TIME AND KEEPS UP AT NIGHT . VITAL SIGNS WT 204 LBS, HT 66 IN, BMI 32.92 INDEX, BP 141/93 MM HG, HR 57 /MIN, RR 18 /MIN, TEMP 97.2 F, OXYGEN SAT % 96%, NA INITIALS AW 1009, REVIEWED BY: EM. EXAMINATION GENERAL EXAMINATION: GENERAL AWAKE,ALERT ,PLEASANT . PSYCH AFFECT NORMAL . LUNGS: LUNG SCHNEIDER ARE CLEAR TO AUSCULTATION BILATERALLY. GOOD MOVEMENT OF AIR . HEART: S1, S2 IN A REGULAR RATE AND RHYTHM. NO SIGNIFICANT MURMURS, RUBS OR GALLOPS NOTED . CERVICAL TRIGGER POINTS: RIGHT TRAPEZIUS.PAIN IS AGGREVATED WITH ROJM NECK. ASSESSMENTS MYALGIA - M79.1 (PRIMARY) TREATMENT MYALGIA START SOMA TABLET, 350 MG, 1 TABLET NEEDED, ORALLY, 1 DAILY PRN X 5 DAYS POST PROCEDURE MDD1, 5 DAY(S), 5, REFILLS 0 NOTES: TPI RIGHT TRAPEZIUS. PROCEDURE CODES FA211 ESTABILISHED PATIENT [facility] CHARGE DISPOSITION & COMMUNICATION FOLLOW UP POST (REASON: TPI RIGHT TRAPEZIUS) ELECTRONICALLY SIGNED BY BARBARA HEARD ON 06/05/2019 AT 04:06 PM EST DISCLAIMER : THIS IS A VISIT SUMMARY EXTRACTED FROM THE [employer] CHART. IT IS NOT A COPY OF THE [employer] PROGRESS NOTE. INESD
== END ==
LOC: M PAIN 10:30
PROVIDERS: ATTEND Nurse Practitioner Family
DX: M79.18 Myalgia, other site (principal); I10 Essential (primary) hypertension; G43.909 Migraine, unspecified, not intractable, without status migrainosus; E78.5 Hyperlipidemia, unspecified; E11.9 Type 2 diabetes mellitus without complications; Z86.59 Personal history of other mental and behavioral disorders; Z87.891 Personal history of nicotine dependence; Z79.82 Long term (current) use of aspirin; Z79.84 Long term (current) use of oral hypoglycemic drugs; Z79.899 Other long term (current) drug therapy

== ENCOUNTER → 2019-06-20 | Outpatient (CLI) | payer OTHER ==
--- NOTE | 2019-06-20 21:21 | REP ---
Clinical: Chronic hepatitis C. Technique: Real time selby scale and color evaluation using curved array transducer. Comparison: 07/29/2016. Findings: The liver demonstrates coarsened echotexture. The previously suspected hepatic mass is not visualized on current examination. The pancreas is incompletely evaluated due to interposed bowel gas but visualized portions appear normal. The gallbladder demonstrates small amounts of gravel without wall thickening or pericholecystic fluid. No biliary ductal dilatation is appreciated and the common bile duct measures 4.6 mm diameter. The right kidney is normal in reniform shape without hydronephrosis and measures 12.3 x 6.4 x 5.2 cm including 9 mm lower pole cyst. No ascites in the visualized right upper quadrant. Impression: 1. Findings consistent with the given history of hepatitis. No focal hepatic mass appreciated. Previously identified 1 cm hepatic nodule not visualized on current examination. 2. Cholelithiasis Electronically Signed by Dinesh Sanchez MD 06/20/2019 09:12 P
== END ==
LOC: M RAD 07:48
PROVIDERS: ATTEND Student in an Organized Health Care Education/Training Program
DX: B18.2 Chronic viral hepatitis C (principal); N28.1 Cyst of kidney, acquired; K80.20 Calculus of gallbladder without cholecystitis without obstruction

== ENCOUNTER → 2019-06-25 | Outpatient (POV) | payer OTHER ==
[~2019-06-25] VITALS: Ht 170.2 cm; Wt 91.8 kg
[2019-06-25 13:00] VITALS: BP 150/91
--- NOTE | 2019-06-26 16:09 | IRCOV ---
[facility] IR Consult Office Visit IR Consult Office Visit DATE: Jun 25, 2019 REASON FOR CONSULTATION/CHIEF COMPLAINT: Lower extremity bleeds. Worried about varicose veins. HISTORY OF PRESENT ILLNESS: 58-year-old male presents with spontaneous bilateral lower extremity sores and bleeds which heal This is going on for a few months. D enies bulging varicose veins. Denies leg swelling. Complains of pain below the knees which is constant and worse with standing. Better with rest. Eases with walking. Describes it as a burning sensation. Patient does have type 2 diabetes. No intermittent claudication. ALLERGIES: Please see below. HOME MEDICATIONS: Please see below. PAST MEDICAL HISTORY: Cirrhosis PAST SURGICAL HISTORY: Noncontributory FAMILY HISTORY: Noncontributory. SOCIAL HISTORY: Ex-smoker. Stopped for 2 years. No alcohol or drugs. REVIEW OF SYSTEMS: Otherwise negative PHYSICAL EXAMINATION: VITAL SIGNS: Please see below. GENERAL APPEARANCE: Appears well. Comfortable at rest. HEENT: No scleral icterus. RESPIRATORY: Symmetric breath sounds. CARDIOVASCULAR: Normal rate. ABDOMEN: Soft nontender. EXTREMITIES: Right lower; normal skin color. No skin changes. Warm to touch. No bulging varicose veins. Femoral pulse 2+ popliteal pulse 2+ DP PT plus no gangrene no ulcers. Left lower; normal skin color. No skin changes. Warm to touch. No bulging varicose veins. Femoral pulse 2+ popliteal pulse 2+ DP PT plus no gangrene no ulcers. NEUROLOGICAL: Alert and oriented. PSYCHIATRIC: Appropriate to circumstance. LABORATORY DATA: Hemoglobin 15.7 hematocrit 46.8 WBC 7.1 platelets 124 sodium 137 potassium 4.0 BUN 18 creatinine 0.8 bilirubin 1.1 ALT 54 ALP 63 AST 27 Imaging: I personally reviewed his lower extremity venous study from December 2018. No varicose veins. No reflux in the greater or lesser saphenous veins. ASSESSMENT/PLAN: 58 male with cirrhosis presents with bilateral lower extremity spontaneous bleeds and sores which heal. Venous reflux study was negative and this is not thought to be due to varicose veins bursting and bleeding. No intervention warranted at this time. I spent 30 minutes in consultation with the patient. Thank you for this referral. Cc Dr. Kolton Loya Allergies Coded Allergies: aspirin (Verified Adverse Reaction, Mild, N/V, 01/25/19) Home Medications Scheduled Amlodipine Besylate (Amlodipine Besylate), 5 MG PO DAILY, (Reported) Bupropion Hcl (Bupropion HCl Sr), 150 MG PO QPM, (Reported) Cetirizine HCl (Cetirizine HCl), 10 MG PO DAILY, (Reported) Fluticasone Propion/Salmeterol (Airduo Respiclick 113-14 Mcg), 1 PUFF INH BID, (Reported) Glimepiride (Glimepiride), 2 MG PO BID, (Reported) Lisinopril (Lisinopril), 20 MG PO DAILY, (Reported) Metformin HCl (Metformin HCl ER), 500 MG PO QPM, (Reported) Metoprolol Tartrate (Metoprolol Tartrate), 100 MG PO BID, (Reported) Naproxen (Naproxen), 500 MG PO BID, (Reported) Pantoprazole Sodium (Pantoprazole Sodium), 40 MG PO DAILY, (Reported) Pregabalin (Lyrica), 150 MG PO BID, (Reported) Spironolactone (Spironolactone), 25 MG PO DAILY, (Reported) Umeclidinium [place] (Incruse Ellipta), 1 PUFF INH DAILY, (Reported) Scheduled PRN Gabapentin (Neurontin), 600 MG PO TID PRN for PAIN, (Reported) Tizanidine HCl (Tizanidine HCl), 4 MG PO QHS PRN for MUSCLE SPASMS, (Reported) VS, I&O, 24H, Fishbone Vital Signs/I&O Vital Signs Date Time Temp Pulse Resp B/P (MAP) Pulse Ox O2 Delivery O2 Flow Rate FiO2 06/25/19 13:00 97.7 64 18 150/91 (110) 95 Room Air RAHEEM FORTE MD Jun 26, 2019 16:09
== END ==
LOC: M IRPOV 12:53
PROVIDERS: ATTEND Radiology Diagnostic Radiology
DX: M79.661 Pain in right lower leg (principal); M79.662 Pain in left lower leg; E11.9 Type 2 diabetes mellitus without complications; K74.69 Other cirrhosis of liver; Z87.2 Personal history of diseases of the skin and subcutaneous tissue; Z87.891 Personal history of nicotine dependence

== ENCOUNTER → 2019-06-28 | Outpatient (CLI) | payer OTHER ==
[~2019-06-28] MED LIST changes: +BUPIVACAINE HCL 0.25% 30 ML VIAL As Ordered ONE; -GLIM2TAB2 PO; +GLIM2TAB4 PO; +TRIAMCINOLONE ACETONIDE SUSP 40 MG/ML VIAL (J3301) As Ordered ONE; +diazePAM 5 MG TAB As Ordered ONE; +oxyCODONE 5MG TAB As Ordered ONE
--- NOTE | 2019-07-10 04:36 | ECWPNPC ---
PATIENT NAME: ALLYN PERERA : 1960 GENDER: MALE VISIT DATE: 06/28/2019 DISCHARGE DATE: 06/28/19 1034 VISIT LOCKED DATE TIME: PHYSICIAN: KIARA MAYER MD RESOURCE: KIARA MAYER MD REASON FOR APPOINTMENT 1. TPI RIGHT NECK/RIGHT SHOULDER HISTORY OF PRESENT ILLNESS HISTORY OF PRESENT ILLNESS: PAIN THE PATIENT DESCRIBES THE PAIN... FALL RISK SCREENING: SCREENING :NO FALLS REPORTED IN THE LAST YEAR CURRENT MEDICATIONS TAKING AMLODIPINE BESYLATE 10 MG TABLET 1 TABLET ORALLY ONCE A DAY, NOTES: 06/27 1299 TAKING METOPROLOL TARTRATE 100 MG TABLET 1 TABLET WITH FOOD ORALLY TWICE A DAY, NOTES: 06/28 744 TAKING METFORMIN HCL 1000 MG TABLET 1 TABLET WITH MEALS ORALLY DAILY, NOTES: 06/27 1899 TAKING BUPROPION HCL ER (SR) 150 MG TABLET EXTENDED RELEASE 12 HOUR 1 TABLET ORALLY TWICE A DAY, NOTES: 06/27 1899 TAKING ZYRTEC ALLERGY 10 MG TABLET 1 TABLET ORALLY ONCE A DAY NEEDED, NOTES: 06/27 1299 TAKING FLONASE 50 MCG/ACT SUSPENSION 1 SPRAY IN EACH NOSTRIL NASALLY ONCE A DAY, NOTES: NONE RECENT TAKING BLOOD GLUCOSE METER - KIT 1 METER DX:E11.65 TWICE DAILY TAKING BD LANCET ULTRAFINE 33G - MISCELLANEOUS 1 LANCET INTRADERMALLY TWICE DAILY DX:E11.65 TAKING ALCOHOL PREP PAD 70 % PAD 1 TOPICALLY TWICE DAILY DX:E11.65 TAKING OMEPRAZOLE 20 MG CAPSULE DELAYED RELEASE 1 CAPSULE ORALLY BEFORE BEDTIME, NOTES: 06/27 2099 TAKING COMPRESSION STOCKINGS 15-20 MMHG DIRECTED DX: I87.2 DAILY TAKING CLONAZEPAM 0.5 MG TABLET 1 TABLET AT BEDTIME ORALLY ONCE A DAY, NOTES: 06/27 2099 TAKING PRAZOSIN HCL 1 MG CAPSULE 1 CAPSULE AT BEDTIME ORALLY ONCE A DAY, NOTES: 06/27 2099 TAKING GLIMEPIRIDE 2 MG TABLET TAKE 1 TAB WITH BREAKFAST ORALLY TWICE DAILY, NOTES: 06/27 2099 TAKING LYRICA 300 MG CAPSULE 1 CAPSULE 1 TO 3 HOURS BEFORE BEDTIME IN THE EVENING ORALLY BID, NOTES: 06/27 1999 TAKING CAPSAICIN 0.025 % CREAM 1 APPLICATION TO AFFECTED AREA NEEDED EXTERNALLY OB LOWER EXT BILATERAL THREE TIMES A DAY, NOTES: 06/26 TAKING BLOOD GLUCOSE TEST STRIP - STRIP 1 STRIP IN VITRO DX:E11.65 TWICE DAILY TAKING LISINOPRIL 20 MG TABLET TAKE ONE TABLET BY MOUTH EVERY DAY , NOTES: 06/27 1300 TAKING TIZANIDINE HCL 4 MG TABLET 1 TABLET NEEDED ORALLY NEEDED FOR SPASMS AND PAIN BEFORE BEDTIME, NOTES: 06/27 2200 TAKING ATORVASTATIN CALCIUM 80 MG TABLET 1 TABLET ORALLY ONCE A DAY, NOTES: 06/27 1300 TAKING SOMA 350 MG TABLET 1 TABLET NEEDED ORALLY 1 DAILY PRN X 5 DAYS POST PROCEDURE MDD1, NOTES: NONE RECENT NOT-TAKING GLIMEPIRIDE 1 MG TABLET 1 TABLET WITH BREAKFAST OR THE FIRST MAIN MEAL OF THE DAY ORALLY ONCE A DAY ALONG WITH THE 2 MG GLIMEPIRIDE TABLET; MDD: 3 MG DISCONTINUED CETIRIZINE HCL 10 MG TABLET 1 TABLET ORALLY ONCE A DAY, NOTES: DUPLICATE MEDICATION LIST REVIEWED AND RECONCILED WITH THE PATIENT PAST MEDICAL HISTORY HTN SHORT''S PALSY UNSPECIFIED ESSENTIAL HYPERTENSION NONDEPENDENT TOBACCO USE DISORDER SMOKING MIGRAINE WITHOUT AURA, WITH INTRACTABLE MIGRAINE, SO STATED, WITHOUT MENTION OF STATUS MIGRAINOSUS ALLERGIC CONJUNCTIVITIS HYPERLIPIDEMIA ESSENTIAL HYPERTENSION ASCVD10 (2016)- 11.5% DIEBETIC TYPE 2 EPIDIDYMITIS HEPATITIS C CHRONIC WITH LIVER CIRRHOSIS TREATED WITH 12 WEEKS MAVYRET HEP C IS CURED HYPERLIPIDEMIA CERVICALGIA PTSD SACROILIITIS HERPESVIRAL INFECTION OF UROGENITAL SYSTEM BALANITIS LUMBAR SPONDYLOSIS PIRIFORMIS MUSCLE PAIN ALLERGIES ASPIR-81: VOMITING - SIDE EFFECTS SURGICAL HISTORY RIGHT EPIDIDYMAL CYST REMOVAL 07/08/[address] ROBIN 08/2016 LEFT INGUINAL HERNIA 02/10/2017 PRIFORMIS MUSCLE INJECTION -RIGHT-[facility] 12/28/2016 BILATIERAL INGUINAL HERNIA REPAIR 02/10/17 RIGHT HERNIA REPAIR 06/2017 FAMILY HISTORY FATHER: , DIAGNOSED WITH HYPERTENSION MOTHER: , DIABETES SIBLINGS: ALIVE DAUGHTER(S): ALIVE 1 BROTHER(S) , 2 SISTER(S) . 2DAUGHTER(S) . SOCIAL HISTORY GENERAL: TOBACCO USE ARE YOU A:FORMER SMOKER HOW LONG HAS IT BEEN SINCE YOU LAST SMOKED?1-5 YEARS SMOKING CESSATION INFORMATION GIVEN04/01/2019 HIV / HEP-C SCREENING HIV TEST OFFERED TO PATIENT:YES DATE OFFERED:10/06/2016 TEST ACCEPTED:NO HEP-C TEST OFFERED TO PATIENT:YES DATE OFFERED:10/06/2016 REASON:PATIENT DECLINED TEST ACCEPTED:NO REASON:PATIENT DECLINED OTHERS AT HOME: GIRLFRIEND. EDUCATION LEVEL OF EDUCATION:NOT FINISHED COLLEGE DIET: REGULAR. LANGUAGE EAST TIMORESE. DOMESTIC VIOLENCE DO YOU FEEL SAFE IN YOUR ENVIRONMENT?YES BMI CARE GOAL FOLLOW-UP ABOVE NORMAL BMI FOLLOW-UPLIFESTYLE EDUCATION REGARDING DIET RECREATIONAL DRUG USE DRUG USE?NO EXERCISE: NO REGULAR EXERCISE. LEARNING BARRIERS / SPECIAL NEEDS CHANGE FROM LAST VISIT?YES BARRIERS TO LEARNING?NO HEARING IMPAIRED?NO VISION IMPAIRED?YES :CORRECTIVE LENSES COGNITIVELY IMPAIRED?NO READINESS TO LEARN?YES LEARNING PREFERENCES?NO LEARNING CAPABILITIES PRESENT?YES EMOTIONAL BARRIERS?NO SPECIAL DEVICES?NO ACCOUNT GROUP SUPERVISOR NEEDED?NO PAIN CLINIC PFS, CLERGY, PUBLIC HEALTH REFERRALS PFS REFERRAL NEEDED?NO CLERGY REFERRAL NEEDED?NO PUBLIC HEALTH REFERRAL NEEDED?NO WAS THE PROVIDER NOTIFIED OF ANY PERTINENT INFO? N/A HAS THE PATIENT BEEN EDUCATED REGARDING HIS/HER PLAN OF CARE?YES HAS THE PATIENT BEEN EDUCATED REGARDING PAIN, THE RISK FOR PAIN, THE IMPORTANCE OF EFFECTIVE PAIN MANAGEMENT, AND THE PAIN ASSESSMENT PROCESS?YES LATEX QUESTIONNAIRE LATEX ALLERGY : HAVE YOU EVER DEVELOPED ANY TYPE OF REACTION AFTER HANDLING LATEX PRODUCTS SUCH RUBBER GLOVES, CONDOMS, DIAPHRAGMS, BALLOONS, SOCKS, OR UNDERWEAR?NO LATEX ALLERGY : HAVE YOU EVER DEVELOPED ANY TYPE OF REACTION DURING OR AFTER DENTAL APPOINTMENT, VAGINAL/RECTAL EXAMINATION, SURGICAL PROCEDURE, OR ANY OTHER EXPOSURE?NO DATE ASKED : 05/08/2019 LATEX RISK : HAVE YOU EVER HAD ANY DIFFICULTY BREATHING OR HIVES AFTER EATING OR HANDLING ANY FRUITS, OR VEGETABLES; SUCH KIWI, BANANAS, STONE FRUITS, OR CHESTNUTSNO LATEX RISK : DO YOU HAVE A PREVIOUS PERSONAL HISTORY OF MORE THAN NINE SURGERIES, SPINA BIFIDA, OR REPEATED CATHERIZATIONS? NO LATEX RISK : ARE YOU FREQUENTLY EXPOSED TO LATEX PRODUCTS IN YOUR OCCUPATION?NO CAFFEINE CAFFEINE USE?YES ADVANCE DIRECTIVE ADVANCE DIRECTIVE DISCUSSED WITH PATIENT:YES YES, PT STATES HCP IS TANNER PERERA - DAUGHTER [phone] MORMON [id number] LATTER-DAY MARITAL STATUS: SINGLE. 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 SEXUAL HX HAD SEX IN THE LAST 12 MONTHS (VAGINAL, ORAL, OR ANAL)?YES WITHWOMEN ONLY PREVENTION STRATEGIES DISCUSSED:CONDOMS USE PROTECTION?NO HAVE YOU EVER HAD AN STD?NO PT STATES HE IS CUTTING DOWN ON SMOKING ALOT DOWN TO 2 DAILY11/27/17 1045 REVIEWED WITH PT. ADLREVIEWED WITH PT 03/01/18 1450 LASREVIEWED WITH PT 04/30/18 1106 BVREVIEWED WITH PATIENT 07/19/18 1058 JS06/28/2019 0915 REVIEWED WITH PT. AD05/08/19 REVIEWED WITH PT. ALFONSO WTIH PT 09/11/18 1324 BVREVIEWED WITH PT 10/25/18 1300 LAS06/28/2019 0915REVIEWED WITH PT. AD. HOSPITALIZATION/MAJOR DIAGNOSTIC PROCEDURE HYPOTENSIVE AND HYPERGLYCEMIA 08/2018 FACIAL DROOPING, POSSIBLE STROKE/SHORT'S PALSY 02/2019 REVIEW OF SYSTEMS REVIEWED BY: PROVIDER: . CONSTITUTIONAL: ANY CHANGE IN YOUR MEDICAL CONDITION? NO . CHILLS NO . FEVER NO . INFECTION: DO YOU HAVE NEW INFECTIONS? NO . DO YOU HAVE HISTORY OF MRSA? NO . MUSCULOSKELETAL: ANY NEW PATTERNS OF PAIN OR NUMBNESS? NO . GASTROENTEROLOGY: ANY NEW CHANGE IN BOWEL CONTROL? NO . GENITOURINARY: ANY NEW CHANGE IN BLADDER CONTROL? NO . IS THERE A CHANCE YOU COULD BE ? NO . HEMATOLOGY/LYMPH: DO YOU TAKE ANY BLOOD THINNERS? (FOR EXAMPLE- COUMADIN, PLAVIX, AGGRENOX, PLATEL, PRADAXA, OR XARELTO) NO . WHEN WAS YOUR LAST DOSE? DATE: TIME: . NEUROLOGY: HAVE YOU FALLEN IN THE PAST 12 MONTHS? NO . ANY NEW EXTREMITY NUMBNESS OR WEAKNESS? NO . CARDIOLOGY: DO YOU HAVE A PACEMAKER OR DEFIBRILLATOR? NO . RESPIRATORY: HAVE YOU BEEN SICK IN THE PAST WEEK? NO . FEVER NO . FLU LIKE SYMPTOMS? NO . COUGH NO . INTEGUMENTARY: DO YOU HAVE ANY RASHES OR OPEN SORES? NO . ALLERGIC/IMMUNO: ARE YOU ALLERGIC TO IV DYE? NO . ANY NEW ALLERGIES? NO . PSYCHIATRIC: DO YOU HAVE THOUGHTS OF HURTING YOURSELF OR SOMEONE ELSE? NO . ARE YOU ABUSED, NEGLECTED, OR IN AN UNSAFE ENVIRONMENT? NO . ENDOCRINOLOGY: ARE YOU DIABETIC? YES FSBS @ 0740 WAS 127 . OTHER: DO YOU NEED ANY PRESCRIPTIONS? NO . IF YES, PLEASE LIST: ____ . ANY NEW PROBLEMS WITH YOUR MEDICATIONS? NO . WHEN DID YOU LAST EAT? 06/27 2030 . WHEN DID YOU LAST DRINK? 06/28 0800 . WHAT DID YOU LAST DRINK? SIP OF WATER . NAME OF PERSON DRIVING YOU HOME? ____ . DO YOU HAVE ANY OTHER QUESTIONS OR CONCERNS NO PT HAS NOT HAD ANY VACCINES IN THE PAST 30 DAYS . VITAL SIGNS WT 206.2 LBS, HT 66 IN, BMI 33.28 INDEX, BP 120/78 MM HG, HR 59 /MIN, RR 18 /MIN, TEMP 96.6 F, OXYGEN SAT % 96%, SAFE IN ENV? (Y/N) Y, NA INITIALS NE 08:58, REVIEWED BY: AD. ASSESSMENTS MYALGIA, OTHER SITE - M79.18 (PRIMARY) PROCEDURES PN TRIGGER POINT INJECTION WITH STEROIDS PRE PROCEDURE DIAGNOSIS 1. MYALGIA 2. PAIN AT RIGHT NECK AREA AND RIGHT SHOULDER AREA POST PROCEDURE DIAGNOSIS 1. MYALGIA 2. PAIN AT RIGHT NECK AREA AND RIGHT SHOULDER AREA PROCEDURE TRIGGER POINT INJECTION AT RIGHT NECK AREA AND RIGHT SHOULDER AREA SURGEON DR. KIARA MAYER SPEECH THERAPY TEACHER NONE ANESTHESIA LOCAL PRE PROCEDURE NOTE THE PATIENT HAS A HISTORY OF CHRONIC PAIN AT THE RIGHT NECK AREA AND RIGHT SHOULDER AREA. I EVALUATED THE PATIENT AND REVIEWED THE CHART. THERE IS EVIDENCE OF BANDS OF TISSUE WITH RESTRICTION OF MOVEMENT AND PRESENCE OF TRIGGER POINT AT THE AFFECTED AREA. I WENT OVER THE RISKS, ALTERNATIVES, AND BENEFITS ASSOCIATED WITH THIS PROCEDURE. THE PATIENT WOULD LIKE TO PROCEED AND GIVES CONSENT TO PERFORMED THE PROCEDURE. THE PATIENT DENIES UNEXPLAINABLE WEIGHT LOSS, FEVER, CHILLS, OR NEW CHANGES IN URINARY OR BOWEL CONTROL DESCRIPTION OF PROCEDURE THE PATIENT WAS BROUGHT TO THE PROCEDURE ROOM AND PLACED IN THE SITTING POSITION. THE AREA WAS CLEANED WITH ALCOHOL. THE PROCEDURE WAS DONE USING ASEPTIC STERILE TECHNIQUE. I CHECKED LATERALITY AND THE LEVEL WHERE THE PROCEDURE WAS GOING TO BE PERFORMED WITH THE PATIENT AND THE SUPPORTING STAFF AT THE MOMENT OF THE TIME OUT IN THE PROCEDURE ROOM. USING A 25-GAUGE NEEDLE, TRIGGER POINTS WERE INJECTED AT THE RIGHT NECK AREA AND RIGHT SHOULDER AREA WITH A TOTAL OF 40 ML OF BUPIVACAINE 0.25% AND KENALOG 40 MG. THERE WAS NO EVIDENCE OF BLOOD, PARESTHESIA OR CEREBROSPINAL FLUID DURING THE PROCEDURE. THE PATIENT WAS SENT TO THE RECOVERY ROOM. THE PATIENT WAS MOVING THE EXTREMITIES AND DOING WELL. THERE WAS NO COMPLICATION DURING THE PROCEDURE POST PROCEDURE NOTE THE PATIENT WILL BE SEEN IN A FOLLOWUP IN THE NEXT FEW WEEKS. I AM LOOKING FOR LONG-LASTING PAIN RELIEF WITH THIS INTERVENTION. INSTRUCTIONS WERE GIVEN, QUESTIONS WERE ANSWERED, AND THE PATIENT EXPRESSED UNDERSTANDING AND AGREES WITH THE PLAN. I, GIANCARLO CALDERÓN, DOCUMENTED THE ABOVE INFORMATION ACTING A SCRIBE FOR DR. MAYER. I HAVE REVIEWED THE ABOVE DOCUMENT, WRITTEN BY GIANCARLO KATE AND I VERIFY THAT IT IS ACCURATE PROCEDURE CODES 51640 INJECT TRIGGER POINT, 1 OR 2 DISPOSITION & COMMUNICATION FOLLOW UP 3 WEEKS ELECTRONICALLY SIGNED BY KIARA MAYER MD, MD ON 07/09/2019 AT 03:15 PM EST DISCLAIMER : THIS IS A VISIT SUMMARY EXTRACTED FROM THE [employer] CHART. IT IS NOT A COPY OF THE [employer] PROGRESS NOTE. DARLIN
== END ==
LOC: M PAIN 09:15
PROVIDERS: ATTEND Anesthesiology
DX: M79.18 Myalgia, other site (principal); I10 Essential (primary) hypertension; G43.909 Migraine, unspecified, not intractable, without status migrainosus; E78.5 Hyperlipidemia, unspecified; E11.9 Type 2 diabetes mellitus without complications; Z86.59 Personal history of other mental and behavioral disorders; Z87.891 Personal history of nicotine dependence; Z88.6 Allergy status to analgesic agent; Z79.84 Long term (current) use of oral hypoglycemic drugs; Z79.899 Other long term (current) drug therapy
CPT/HCPCS: 20552; J3301

== ENCOUNTER → 2019-07-18 | Outpatient (CLI) | payer OTHER ==
[~2019-07-18] MED LIST changes: -BUPIVACAINE HCL 0.25% 30 ML VIAL As Ordered ONE; -TRIAMCINOLONE ACETONIDE SUSP 40 MG/ML VIAL (J3301) As Ordered ONE; -diazePAM 5 MG TAB As Ordered ONE; -oxyCODONE 5MG TAB As Ordered ONE
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
== END ==
LOC: M PAIN 09:45
PROVIDERS: ATTEND Nurse Practitioner Family
DX: M79.18 Myalgia, other site (principal); I10 Essential (primary) hypertension; E11.9 Type 2 diabetes mellitus without complications; Z79.84 Long term (current) use of oral hypoglycemic drugs; Z79.899 Other long term (current) drug therapy; Z88.6 Allergy status to analgesic agent; Z87.891 Personal history of nicotine dependence

== ENCOUNTER → 2019-08-05 | Outpatient (CLI) | payer OTHER | LOC: M PLALAB 14:02 | PROVIDERS: ATTEND Student in an Organized Health Care Education/Training Program | DX: E11.9 Type 2 diabetes mellitus without complications (principal) ==

== ENCOUNTER → 2019-08-05 | Outpatient (REF) | payer OTHER | LOC: M SFHCPLAZ 13:51 | PROVIDERS: ATTEND Family Medicine | DX: E11.9 Type 2 diabetes mellitus without complications (principal) ==

== ENCOUNTER → 2019-09-16 | Outpatient (CLI) | payer OTHER ==
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
== END ==
LOC: M PAIN 10:45
PROVIDERS: ATTEND Nurse Practitioner Family
DX: M79.18 Myalgia, other site (principal); I10 Essential (primary) hypertension; E11.9 Type 2 diabetes mellitus without complications; Z79.84 Long term (current) use of oral hypoglycemic drugs; Z79.899 Other long term (current) drug therapy; Z87.891 Personal history of nicotine dependence; Z88.6 Allergy status to analgesic agent

== ENCOUNTER → 2019-09-17 | Outpatient (CLI) | payer OTHER ==
--- NOTE | 2019-09-17 14:45 | REPPI ---
LEFT TIB/FIB SERIES: Four views. HISTORY: Left medial tibial pain. Stress syndrome. FINDINGS: Four views of the left tibia and fibula demonstrate normal bones and joints. There is Achilles calcaneal spurring. There is minimal vascular calcification in the proximal calf. No fracture or periosteal reaction is seen. No bony destructive lesion is seen. IMPRESSION: Vascular calcification and heel spurring. No acute bony abnormality. Electronically Signed by Wang Laureano MD 09/17/2019 04:49 P
== END ==
LOC: M PLAIMG 14:03
PROVIDERS: ATTEND Student in an Organized Health Care Education/Training Program
DX: M77.32 Calcaneal spur, left foot (principal)

== ENCOUNTER 2019-10-15 11:36 | Outpatient (RCR) | payer OTHER ==
[~2019-10-15 11:36] MED LIST changes: +CYCL-707 PO; -CYCL10TA PO
== END 2019-10-17 ==
LOC: M PT 11:36
PROVIDERS: ATTEND Student in an Organized Health Care Education/Training Program
DX: R26.81 Unsteadiness on feet (principal)

== ENCOUNTER 2019-10-27 13:11 | Emergency (ER) | payer OTHER ==
[~2019-10-27] VITALS: Ht 170.2 cm; Wt 94.0 kg
[2019-10-27] MEDS ORDERED: ACETAMINOPHEN 500 MG TAB PO ONE (14:30)
[2019-10-27] MEDS ORDERED: LIDOCAINE 2% MDV 20ML VIAL SC ONE (14:30)
[2019-10-27] MEDS ORDERED: SOMA350T PO (15:03)
[2019-10-27 15:14] VITALS: BP 125/90
--- NOTE | 2019-10-27 15:35 | REP ---
REASON: Headache. COMPARISON: 03/12/2019, which was within normal limits. There is no change from the prior exam. The ventricles and sulci are stable. The deep white matter is stable. There is no shift in midline structures. There is no extra-axial fluid collection. There is no evidence of an acute intracranial hemorrhagic or nonhemorrhagic event. There is no change in the skull or imaged paranasal sinuses. IMPRESSION: No change from the prior exam. No acute disease. Electronically Signed by Elijah Acevedo DO 10/27/2019 03:39 P
== END 2019-10-27 15:14 | disposition home or self-care (01) ==
LOC: M ED 13:11
DX: M54.81 Occipital neuralgia (principal); E11.9 Type 2 diabetes mellitus without complications; I10 Essential (primary) hypertension; E78.5 Hyperlipidemia, unspecified; J44.9 Chronic obstructive pulmonary disease, unspecified; Z86.69 Personal history of other diseases of the nervous system and sense organs; Z88.6 Allergy status to analgesic agent; Z79.899 Other long term (current) drug therapy; Z79.84 Long term (current) use of oral hypoglycemic drugs; Z79.1 Long term (current) use of non-steroidal anti-inflammatories (NSAID)

== ENCOUNTER → 2019-10-28 | Outpatient (CLI) | payer OTHER ==
[~2019-10-28] MED LIST changes: +SOMA350T PO
--- NOTE | 2019-10-29 23:13 | ECWPNPC ---
PATIENT NAME: ALLYN PERERA : 1960 GENDER: MALE VISIT DATE: 10/28/2019 DISCHARGE DATE: 10/28/19 1618 VISIT LOCKED DATE TIME: PHYSICIAN: KIARA MAYER MD RESOURCE: KIARA MAYER MD REASON FOR APPOINTMENT 1. HAD ER VISIT WAS TOLD THEY SPOKE WITH AND HE WAS SUPPOSE TO BE ADDED ON TODAY HISTORY OF PRESENT ILLNESS HISTORY OF PRESENT ILLNESS: PAIN THE PATIENT DESCRIBES THE PAIN... 59 YEAR OLD MALE PATIENT WITH A HISTORY OF CHRONIC NECK PAIN AND HEADACHES. THE PATIENT DESCRIBES HIS PAIN BURNING, IT COMES AND GOES, SHARP, AND INCAPACITATING WITH A PAIN SCORE OF 8-10/10 DEPENDING ON PHYSICAL ACTIVITY. THE PATIENT STATES HE WAS SEEN IN THE EMERGENCY ROOM OVER THE WEEKEND DUE TO SEVERE PAIN, WHERE HE RECEIVED AN OCCIPITAL INJECTION THAT HE SAYS HELPED AT SOME CAPACITY FOR A FEW DAYS OF PAIN RELIEF, BUT HE IS STILL UNCOMFORTABLE. THE PATIENT SAYS HIS LAST TRIGGER POINT INJECTION PROVIDED SEVERAL MONTHS OF GOOD PAIN RELIEF FOR HIM. PATIENT DENIES UNEXPLAINABLE WEIGHT LOSS, FEVER, CHILLS, NEW CHANGES ON HIS URINARY OR BOWEL CONTROL. FALL RISK SCREENING: SCREENING :NO FALLS REPORTED IN THE LAST YEAR CURRENT MEDICATIONS TAKING FLONASE 50 MCG/ACT SUSPENSION 1 SPRAY IN EACH NOSTRIL NASALLY ONCE A DAY NEEDED TAKING BLOOD GLUCOSE METER - KIT 1 METER DX:E11.65 TWICE DAILY TAKING BD LANCET ULTRAFINE 33G - MISCELLANEOUS 1 LANCET INTRADERMALLY TWICE DAILY DX:E11.65 TAKING ALCOHOL PREP PAD 70 % PAD 1 TOPICALLY TWICE DAILY DX:E11.65 TAKING COMPRESSION STOCKINGS 15-20 MMHG DIRECTED DX: I87.2 DAILY TAKING CLONAZEPAM 0.5 MG TABLET 1 TABLET AT BEDTIME ORALLY ONCE A DAY, NOTES: BY PSYCH A SLEEP AID TAKING PRAZOSIN HCL 5 MG CAPSULE 1 CAPSULE AT BEDTIME ORALLY ONCE A DAY, NOTES: FOR NIGHT TERRORS BY PSYCH TAKING GLIMEPIRIDE 2 MG TABLET 1 TAB BID WITH FOOD ORALLY TWICE DAILY TAKING BLOOD GLUCOSE TEST STRIP - STRIP 1 STRIP IN VITRO DX:E11.65 TWICE DAILY TAKING OMEPRAZOLE 20 MG CAPSULE DELAYED RELEASE 1 CAPSULE ORALLY BEFORE BEDTIME TAKING METFORMIN HCL 1000 MG TABLET 1 TABLET WITH MEALS ORALLY TWICE DAILY TAKING AMLODIPINE BESYLATE 10 MG TABLET 1 TABLET ORALLY ONCE A DAY TAKING ZYRTEC ALLERGY 10 MG TABLET 1 TABLET ORALLY ONCE A DAY NEEDED TAKING BUPROPION HCL ER (SR) 150 MG TABLET EXTENDED RELEASE 12 HOUR 1 TABLET ORALLY TWICE A DAY TAKING STEGLATRO 15 MG TABLET 1 TABLET ORALLY ONCE A DAY TAKING METOPROLOL TARTRATE 100 MG TABLET 1 TABLET WITH FOOD ORALLY TWICE A DAY TAKING LISINOPRIL 20 MG TABLET TAKE ONE TABLET BY MOUTH EVERY DAY TAKING HOME STYLE BED RAILS - MISCELLANEOUS DIRECTED [facility] # [phone] USE UNDER THE BED RAILS EVERY NIGHT TO PREVENT FALLING OUT OF BED TAKING QUETIAPINE FUMARATE 100 MG TABLET 1/2 TABLET AT BEDTIME ORALLY ONCE A DAY TAKING LYRICA 300 MG CAPSULE 1 CAPSULE 1 TO 3 HOURS BEFORE BEDTIME IN THE EVENING ORALLY BID TAKING ATORVASTATIN CALCIUM 80 MG TABLET TAKE 1 TABLET BY MOUTH ONCE A DAY TAKING CAPSAICIN 0.025 % CREAM 1 APPLICATION TO AFFECTED AREA NEEDED EXTERNALLY OB LOWER EXT BILATERAL THREE TIMES A DAY TAKING TIZANIDINE HCL 4 MG TABLET 1 TABLET NEEDED ORALLY NEEDED FOR SPASMS AND PAIN BEFORE BEDTIME NOT-TAKING SOMA 350 MG TABLET 1 TABLET NEEDED ORALLY 1 DAILY PRN X 5 DAYS POST PROCEDURE MDD1, NOTES: NONE RECENT MEDICATION LIST REVIEWED AND RECONCILED WITH THE PATIENT PAST MEDICAL HISTORY HTN SHORT''S PALSY UNSPECIFIED ESSENTIAL HYPERTENSION NONDEPENDENT TOBACCO USE DISORDER SMOKING MIGRAINE WITHOUT AURA, WITH INTRACTABLE MIGRAINE, SO STATED, WITHOUT MENTION OF STATUS MIGRAINOSUS ALLERGIC CONJUNCTIVITIS HYPERLIPIDEMIA ESSENTIAL HYPERTENSION ASCVD10 (2016)- 11.5% DIEBETIC TYPE 2 EPIDIDYMITIS HEPATITIS C CHRONIC WITH LIVER CIRRHOSIS TREATED WITH 12 WEEKS MAVYRET HEP C IS CURED HYPERLIPIDEMIA CERVICALGIA PTSD SACROILIITIS HERPESVIRAL INFECTION OF UROGENITAL SYSTEM BALANITIS LUMBAR SPONDYLOSIS PIRIFORMIS MUSCLE PAIN ALLERGIES ASPIR-81: VOMITING - SIDE EFFECTS SURGICAL HISTORY RIGHT EPIDIDYMAL CYST REMOVAL 07/08/[address] ROBIN 08/2016 LEFT INGUINAL HERNIA 02/10/2017 PIRIFORMIS MUSCLE INJECTION -RIGHT-[facility] 12/28/2016 BILATIERAL INGUINAL HERNIA REPAIR 02/10/17 RIGHT HERNIA REPAIR 06/2017 FAMILY HISTORY FATHER: , DIAGNOSED WITH HYPERTENSION MOTHER: , DIABETES SIBLINGS: ALIVE DAUGHTER(S): ALIVE 1 BROTHER(S) , 2 SISTER(S) . 2DAUGHTER(S) . SOCIAL HISTORY GENERAL: TOBACCO USE ARE YOU A:FORMER SMOKER HOW LONG HAS IT BEEN SINCE YOU LAST SMOKED?1-5 YEARS SMOKING CESSATION INFORMATION GIVEN04/01/2019 LATEX QUESTIONNAIRE LATEX ALLERGY : HAVE YOU EVER DEVELOPED ANY TYPE OF REACTION AFTER HANDLING LATEX PRODUCTS SUCH RUBBER GLOVES, CONDOMS, DIAPHRAGMS, BALLOONS, SOCKS, OR UNDERWEAR?NO LATEX ALLERGY : HAVE YOU EVER DEVELOPED ANY TYPE OF REACTION DURING OR AFTER DENTAL APPOINTMENT, VAGINAL/RECTAL EXAMINATION, SURGICAL PROCEDURE, OR ANY OTHER EXPOSURE?NO DATE ASKED : 05/08/2019 LATEX RISK : HAVE YOU EVER HAD ANY DIFFICULTY BREATHING OR HIVES AFTER EATING OR HANDLING ANY FRUITS, OR VEGETABLES; SUCH KIWI, BANANAS, STONE FRUITS, OR CHESTNUTSNO LATEX RISK : DO YOU HAVE A PREVIOUS PERSONAL HISTORY OF MORE THAN NINE SURGERIES, SPINA BIFIDA, OR REPEATED CATHERIZATIONS? NO LATEX RISK : ARE YOU FREQUENTLY EXPOSED TO LATEX PRODUCTS IN YOUR OCCUPATION?NO BMI CARE GOAL FOLLOW-UP ABOVE NORMAL BMI FOLLOW-UPLIFESTYLE EDUCATION REGARDING DIET ALCOHOL SCREENING DID YOU HAVE A DRINK CONTAINING ALCOHOL IN THE PAST YEAR?NO POINTS0 INTERPRETATIONNEGATIVE RECREATIONAL DRUG USE DRUG USE?NO CAFFEINE CAFFEINE USE?YES SEXUAL HX HAD SEX IN THE LAST 12 MONTHS (VAGINAL, ORAL, OR ANAL)?YES WITHWOMEN ONLY PREVENTION STRATEGIES DISCUSSED:CONDOMS USE PROTECTION?NO HAVE YOU EVER HAD AN STD?NO HIV / HEP-C SCREENING HIV TEST OFFERED TO PATIENT:YES DATE OFFERED:10/06/2016 TEST ACCEPTED:NO HEP-C TEST OFFERED TO PATIENT:YES DATE OFFERED:10/06/2016 REASON:PATIENT DECLINED TEST ACCEPTED:NO REASON:PATIENT DECLINED YAZDANISM [id number] [employer] 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 EDUCATION LEVEL OF EDUCATION:NOT FINISHED COLLEGE LEARNING BARRIERS / SPECIAL NEEDS CHANGE FROM LAST VISIT?YES BARRIERS TO LEARNING?NO HEARING IMPAIRED?NO VISION IMPAIRED?YES COGNITIVELY IMPAIRED?NO :CORRECTIVE LENSES READINESS TO LEARN?YES LEARNING PREFERENCES?NO LEARNING CAPABILITIES PRESENT?YES EMOTIONAL BARRIERS?NO SPECIAL DEVICES?NO PHARMACY GENERAL MANAGER NEEDED?NO DOMESTIC VIOLENCE DO YOU FEEL SAFE IN YOUR ENVIRONMENT?YES OCCUPATION: NOT WORKING, UNABLE APPLYING FOR SSDI. DIET: REGULAR. EXERCISE: NO REGULAR EXERCISE. MARITAL STATUS: SINGLE. OTHERS AT HOME: GIRLFRIEND. NEW PATIENT PAIN DIARY TODAY'S VISIT 10/28/19 PATIENT DESCRIBES PAIN :BURNING, IT COMES AND GOES, SHARP FROM 0-10, WHAT LEVEL IS YOUR PAIN TODAY?3 PRECIPITATING FACTORS BENDING HEAD DOWN ALLEVIATING FACTORS RESTING IMPACT ON FUNCTION YES PAIN CLINIC PFS, CLERGY, PUBLIC HEALTH REFERRALS PFS REFERRAL NEEDED?NO CLERGY REFERRAL NEEDED?NO PUBLIC HEALTH REFERRAL NEEDED?NO WAS THE PROVIDER NOTIFIED OF ANY PERTINENT INFO? N/A HAS THE PATIENT BEEN EDUCATED REGARDING HIS/HER PLAN OF CARE?YES HAS THE PATIENT BEEN EDUCATED REGARDING PAIN, THE RISK FOR PAIN, THE IMPORTANCE OF EFFECTIVE PAIN MANAGEMENT, AND THE PAIN ASSESSMENT PROCESS?YES ADVANCE DIRECTIVE ADVANCE DIRECTIVE DISCUSSED WITH PATIENT:YES YES, PT STATES HCP IS TANNER PERERA - DAUGHTER [phone] PT STATES HE IS CUTTING DOWN ON SMOKING ALOT DOWN TO 2 DAILY11/27/17 1045 REVIEWED WITH PT. ADLREVIEWED WITH PT 03/01/18 1450 LASREVIEWED WITH PT 04/30/18 1106 BVREVIEWED WITH PATIENT 07/19/18 1058 JS06/28/2019 0915 REVIEWED WITH PT. AD05/08/19 REVIEWED WITH PT. ADREVIEWED WTIH PT 09/11/18 1324 BVREVIEWED WITH PT 10/25/18 1300 LAS06/28/2019 0915REVIEWED WITH PT. AD. HOSPITALIZATION/MAJOR DIAGNOSTIC PROCEDURE HYPOTENSIVE AND HYPERGLYCEMIA 08/2018 FACIAL DROOPING, POSSIBLE STROKE/SHORT'S PALSY 02/2019 REVIEW OF SYSTEMS REVIEWED BY: PROVIDER: KIARA MAYER MD . CONSTITUTIONAL: ANY CHANGE IN YOUR MEDICAL CONDITION? YES, EQUILIBRIUM IS OFF, PT IS FALLINGFROM THIS . CHILLS NO . FEVER NO . INFECTION: DO YOU HAVE NEW INFECTIONS? NO . DO YOU HAVE HISTORY OF MRSA? NO . MUSCULOSKELETAL: ANY NEW PATTERNS OF PAIN OR NUMBNESS? YES, PT WENT TO ER YESTERDAY FOR POSTERIOR HEAD PAIN TO OCCIPITAL LOBE AND PT WAS TX'D WITH LIDOCAINE INJECTION TO SITE AND PT WAS GIVEN SOMA TO TAKE HOME. PT STATES PAIN WAS 12/10 PRE INJECTION AND 3/10 TODAY . GASTROENTEROLOGY: ANY NEW CHANGE IN BOWEL CONTROL? NO . GENITOURINARY: ANY NEW CHANGE IN BLADDER CONTROL? NO . IS THERE A CHANCE YOU COULD BE ? NO . HEMATOLOGY/LYMPH: DO YOU TAKE ANY BLOOD THINNERS? (FOR EXAMPLE- COUMADIN, PLAVIX, AGGRENOX, PLATEL, PRADAXA, OR XARELTO) NO . WHEN WAS YOUR LAST DOSE? DATE: TIME: . NEUROLOGY: HAVE YOU FALLEN IN THE PAST 12 MONTHS? YES, PT STATES HE HAS FALLEN FREQUENTLY FROM LOSS OF EQUILIBRIUM X 1 MONTH PCP AWARE AND PT WAS SENT TO PT FOR THIS PROBLEM . ANY NEW EXTREMITY NUMBNESS OR WEAKNESS? NO . CARDIOLOGY: DO YOU HAVE A PACEMAKER OR DEFIBRILLATOR? NO . RESPIRATORY: HAVE YOU BEEN SICK IN THE PAST WEEK? NO . FEVER NO . FLU LIKE SYMPTOMS? NO . COUGH NO . INTEGUMENTARY: DO YOU HAVE ANY RASHES OR OPEN SORES? NO . ALLERGIC/IMMUNO: ARE YOU ALLERGIC TO IV DYE? NO . ANY NEW ALLERGIES? NO . PSYCHIATRIC: DO YOU HAVE THOUGHTS OF HURTING YOURSELF OR SOMEONE ELSE? NO . ARE YOU ABUSED, NEGLECTED, OR IN AN UNSAFE ENVIRONMENT? NO . ENDOCRINOLOGY: ARE YOU DIABETIC? YES . OTHER: DO YOU NEED ANY PRESCRIPTIONS? NO . IF YES, PLEASE LIST: ____ . ANY NEW PROBLEMS WITH YOUR MEDICATIONS? NO . WHEN DID YOU LAST EAT? ____ . WHEN DID YOU LAST DRINK? ____ . WHAT DID YOU LAST DRINK? ____ . NAME OF PERSON DRIVING YOU HOME? ____ . DO YOU HAVE ANY OTHER QUESTIONS OR CONCERNS NO . VITAL SIGNS WT 210 LBS, HT 66 IN, BMI 33.89 INDEX, BP 147/86 MM HG, HR 67 /MIN, RR 18 /MIN, TEMP 96.4 F, OXYGEN SAT % 97%, SAFE IN ENV? (Y/N) Y, NA INITIALS AW 1423, REVIEWED BY: EM. EXAMINATION GENERAL EXAMINATION: PATIENT IS ALERT O X 3 AND COOPERATIVE. TENDERNESS OVER THE PARASPINAL MUSCLE GROUP OF THE BILATERAL NECK AND OCCIPITAL AREAS. PRESENCE OF BANDS OF TISSUE AND TRIGGER POINTS WITH RESTRICTION OF MOVEMENT OF THE NECK ON BOTH SIDES. ASSESSMENTS MYALGIA - M79.1 (PRIMARY) CERVICALGIA - M54.2 TREATMENT MYALGIA CONTINUE SOMA TABLET, 350 MG, 1 TABLET NEEDED, ORALLY FOR SPASMS AND PAIN, EVERY 8 HOURS NEEDED MDD3, 5 DAYS, 15, REFILLS 0, NOTES: NONE RECENT CLINICAL NOTES: WE DISCUSSED SEVERAL ISSUES WITH MR. PERERA'S PAIN MANAGEMENT CASE. DUE TO THE TRIGGER POINTS, BANDS OF TISSUE, AND RESTRICTION OF MOVEMENT, I WOULD LIKE TO MOVE FORWARD WITH A BILATERAL NECK TRIGGER POINT INJECTION AT THIS TIME. WE DISCUSSED THE BENEFITS, RISKS, AND ALTERNATIVES OF THE INJECTION AND THE PATIENT WOULD LIKE TO PROCEED. I AM LOOKING FOR LONG LASTING PAIN RELIEF FROM THIS INJECTION FOR THE PATIENT. I DISCUSSED WITH THE PATIENT ABOUT REPLACING KENALOG WITH DEXAMETHASONE, WHICH IS A LESS POTENT STEROID, TO LESSEN THE RISK OF IMMUNOSUPPRESSION. THE PATIENT AGREED ON HAVING BEING TESTED FOR COVID-19 BEFORE THE PROCEDURE. WE DISCUSSED THE CONCERNS OF STEROIDS POTENTIALLY CAUSING IMMUNOSUPPRESSION SHORT-TERM AND FURTHER COMPLICATIONS IF THEY COME IN CONTACT WITH COVID-19, SUCH WORSE SYMPTOMS OR . THE PATIENT UNDERSTANDS, WOULD LIKE TO PROCEED WITH THE PROCEDURE, AND AGREES HE WILL BE CAREFUL BY SELF ISOLATING FOR A WEEK OR MORE. THE PATIENT WILL CONTINUE WITH SOMA 350 MG UP TO 3 TABLETS DAILY, 15 TABLETS TOTAL TO HELP WITH PAIN AND SPASTICITY. I WILL START THE PATIENT ON TORADOL 10 MG UP TO 3 TABLETS NEEDED DAILY WITH FOOD WITH A TOTAL OF 15 TABLETS. I EXPLAINED TO THE PATIENT THE RISKS ALTERNATIVES AND BENEFITS ASSOCIATED WITH THE USE OF NSAID'S. THE PATIENT UNDERSTOOD THAT THE USE OF NSAID'S MAY BE ASSOCIATED WITH THE DEVELOPMENT OF GASTRIC IRRITATION AND ULCERS, WITH THE DEVELOPMENT OF KIDNEY PROBLEMS AND WITH THE POSSIBILITY OF DEVELOPING CARDIAC EVENTS SUCH STOKE OR CARDIAC DISEASES. THE PATIENT AGREES ON USING THE PRESCRIBED NSAID. THE PATIENT WAS ADVISED TO STOP TAKING THE MEDICATION IF HE EXPERIENCES ANY ADVERSE SIDE EFFECTS. THE PATIENT WILL FOLLOW UP IN SEVERAL WEEKS AFTER HIS INJECTION TO SEE HOW IT IS HELPING WITH HIS PAIN. INSTRUCTIONS WERE GIVEN, QUESTIONS WERE ANSWERED, PATIENT REPORTS UNDERSTANDING AND AGREES WITH THE PLAN. I, PADMINI HEARN, DOCUMENTED THE ABOVE INFORMATION ACTING A SCRIBE FOR DR. MAYER. I HAVE REVIEWED THE ABOVE DOCUMENT, WRITTEN BY PADMINI FITZPATRICKIBAilyn AND I VERIFY THAT IT IS ACCURATE. . OTHERS START KETOROLAC TROMETHAMINE TABLET, 10 MG, 1 TABLET WITH FOOD OR MILK NEEDED, ORALLY FOR PAIN, EVERY 8 HRS MDD3, 5 DAY(S), 15, REFILLS 0 PREVENTIVE MEDICINE PAIN CLINIC TEACHING: MEDICATIONS KETOROLAC DRUG INFORMATION PRINTED AND REVIEWED WITH PATIENT. PATIENT ALSO EDUCATED TO CONTINUE USING SOMA. 10/28/2019 7558 NLJ. PROCEDURE TEACHING TRIGGER POINT INJECTION PROCEDURE INFORMATION PRINTED AND REVIEWED WITH PATIENT, PATIENT VERBLAIZES UNDERSTANDING OF PROCEDURE AND ALSO OF PRE PROCEDURE INSTRUCTIONS REVIEWED. 10/28/2019 8794 NLJ. PROCEDURE CODES G8427 CURRENT MEDS W/DOSAGES DOCUMENTED G8730 PAIN ASSESS POS TOOL F/U PLAN DOC FA211 ESTABILISHED PATIENT [facility] FACILITY CHARGE DISPOSITION & COMMUNICATION FOLLOW UP 2 - 3 DAYS (REASON: MAURICIO NECK TPI MONDAY) ELECTRONICALLY SIGNED BY KIARA MAYER MD, MD ON 10/29/2019 AT 03:53 PM EDT DISCLAIMER : THIS IS A VISIT SUMMARY EXTRACTED FROM THE [employer] CHART. IT IS NOT A COPY OF THE [employer] PROGRESS NOTE. DARLIN
== END ==
LOC: M PAIN 14:45
PROVIDERS: ATTEND Anesthesiology
DX: M54.2 Cervicalgia (principal); I10 Essential (primary) hypertension; E11.9 Type 2 diabetes mellitus without complications; Z79.84 Long term (current) use of oral hypoglycemic drugs; Z79.899 Other long term (current) drug therapy; Z88.8 Allergy status to other drugs, medicaments and biological substances; Z87.891 Personal history of nicotine dependence

== ENCOUNTER → 2019-10-29 | Outpatient (CLI) | payer OTHER ==
[~2019-10-29] MED LIST changes: -ALL10TAB29 PO; -AMLO10TA5 PO; +AMLO1TAB24 PO; +AMLO1TAB25 PO; -AMLO5TAB6 PO; +CETI-24 PO; -LISI-538 PO; +LISI10TA22 PO; -LISI10TA4 PO; +LISI20TA33 PO; +PANT40TA29 PO; -PANT40TA3 PO
== END ==
LOC: M LABSMTC 11:43
PROVIDERS: ATTEND Family Medicine
DX: Z11.59 Encounter for screening for other viral diseases (principal)
CPT/HCPCS: C8903; U0003

== ENCOUNTER → 2019-11-01 | Outpatient (CLI) | payer OTHER ==
[~2019-11-01] MED LIST changes: +ALL10TAB29 PO; +AMLO10TA5 PO; -AMLO1TAB24 PO; -AMLO1TAB25 PO; +AMLO5TAB6 PO; +BUPIVACAINE HCL 0.25% 10ML VIAL As Ordered ONE; +BUPIVACAINE HCL 0.25% 30ML VIAL As Ordered ONE; -CETI-24 PO; +LISI-538 PO; -LISI10TA22 PO; +LISI10TA4 PO; -LISI20TA33 PO; -PANT40TA29 PO; +PANT40TA3 PO; +dexameTHASONE 10MG/1ML VIAL PRES.FREE (J1100 PER 1MG) As Ordered ONE; +diazePAM 5 MG TAB As Ordered ONE; +oxyCODONE 5MG TAB As Ordered ONE
--- NOTE | 2019-11-02 00:09 | ECWPNPC ---
PATIENT NAME: ALLYN PERERA : 1960 GENDER: MALE VISIT DATE: 11/01/2019 DISCHARGE DATE: 11/01/19951 VISIT LOCKED DATE TIME: PHYSICIAN: KIARA MAYER MD RESOURCE: KIARA MAYER MD REASON FOR APPOINTMENT 1. BILATERAL NECK TRIGGER POINT INJECTIONS. HISTORY OF PRESENT ILLNESS HISTORY OF PRESENT ILLNESS: PAIN THE PATIENT DESCRIBES THE PAIN... FALL RISK SCREENING: SCREENING :NO FALLS REPORTED IN THE LAST YEAR CURRENT MEDICATIONS TAKING FLONASE 50 MCG/ACT SUSPENSION 1 SPRAY IN EACH NOSTRIL NASALLY ONCE A DAY NEEDED, NOTES: 10/31/2019 1400 TAKING BLOOD GLUCOSE METER - KIT 1 METER DX:E11.65 TWICE DAILY TAKING BD LANCET ULTRAFINE 33G - MISCELLANEOUS 1 LANCET INTRADERMALLY TWICE DAILY DX:E11.65 TAKING ALCOHOL PREP PAD 70 % PAD 1 TOPICALLY TWICE DAILY DX:E11.65 TAKING COMPRESSION STOCKINGS 15-20 MMHG DIRECTED DX: I87.2 DAILY TAKING CLONAZEPAM 0.5 MG TABLET 1 TABLET AT BEDTIME ORALLY ONCE A DAY, NOTES: 10/31/2019 2100 TAKING PRAZOSIN HCL 5 MG CAPSULE 1 CAPSULE AT BEDTIME ORALLY ONCE A DAY, NOTES: 10/31/2019 2100 TAKING GLIMEPIRIDE 2 MG TABLET 1 TAB BID WITH FOOD ORALLY TWICE DAILY, NOTES: 10/31/2019 2000 TAKING BLOOD GLUCOSE TEST STRIP - STRIP 1 STRIP IN VITRO DX:E11.65 TWICE DAILY TAKING OMEPRAZOLE 20 MG CAPSULE DELAYED RELEASE 1 CAPSULE ORALLY BEFORE BEDTIME, NOTES: 10/31/2019 2100 TAKING METFORMIN HCL 1000 MG TABLET 1 TABLET WITH MEALS ORALLY TWICE DAILY, NOTES: 10/31/2019 2000 TAKING AMLODIPINE BESYLATE 10 MG TABLET 1 TABLET ORALLY ONCE A DAY, NOTES: 11/01/2019 0730 TAKING ZYRTEC ALLERGY 10 MG TABLET 1 TABLET ORALLY ONCE A DAY NEEDED, NOTES: PRN TAKING STEGLATRO 15 MG TABLET 1 TABLET ORALLY ONCE A DAY, NOTES: 10/31/2019 0900 TAKING METOPROLOL TARTRATE 100 MG TABLET 1 TABLET WITH FOOD ORALLY TWICE A DAY, NOTES: 11/01/2019 0730 TAKING LISINOPRIL 20 MG TABLET TAKE ONE TABLET BY MOUTH EVERY DAY , NOTES: 10/31/20191300 TAKING HOME STYLE BED RAILS - MISCELLANEOUS DIRECTED [facility] # [id number] USE UNDER THE BED RAILS EVERY NIGHT TO PREVENT FALLING OUT OF BED TAKING QUETIAPINE FUMARATE 100 MG TABLET 1/2 TABLET AT BEDTIME ORALLY ONCE A DAY, NOTES: 10/31/2019 0900 TAKING LYRICA 300 MG CAPSULE 1 CAPSULE 1 TO 3 HOURS BEFORE BEDTIME IN THE EVENING ORALLY BID, NOTES: 10/31/20191999 TAKING ATORVASTATIN CALCIUM 80 MG TABLET TAKE 1 TABLET BY MOUTH ONCE A DAY , NOTES: 10/31/20191999 TAKING CAPSAICIN 0.025 % CREAM 1 APPLICATION TO AFFECTED AREA NEEDED EXTERNALLY OB LOWER EXT BILATERAL THREE TIMES A DAY TAKING TIZANIDINE HCL 4 MG TABLET 1 TABLET NEEDED ORALLY NEEDED FOR SPASMS AND PAIN BEFORE BEDTIME, NOTES: 10/31/20192199 TAKING SOMA 350 MG TABLET 1 TABLET NEEDED ORALLY FOR SPASMS AND PAIN EVERY 8 HOURS NEEDED MDD3, NOTES: 10/31/20192199 TAKING KETOROLAC TROMETHAMINE 10 MG TABLET 1 TABLET WITH FOOD OR MILK NEEDED ORALLY FOR PAIN EVERY 8 HRS MDD3, NOTES: 10/30/20191999 TAKING BUPROPION HCL ER (SR) 150 MG TABLET EXTENDED RELEASE 12 HOUR 1 TABLET ORALLY TWICE A DAY, NOTES: 10/31/2019 09 MEDICATION LIST REVIEWED AND RECONCILED WITH THE PATIENT PAST MEDICAL HISTORY HTN SHORT''S PALSY UNSPECIFIED ESSENTIAL HYPERTENSION NONDEPENDENT TOBACCO USE DISORDER SMOKING MIGRAINE WITHOUT AURA, WITH INTRACTABLE MIGRAINE, SO STATED, WITHOUT MENTION OF STATUS MIGRAINOSUS ALLERGIC CONJUNCTIVITIS HYPERLIPIDEMIA ESSENTIAL HYPERTENSION ASCVD10 (2016)- 11.5% DIEBETIC TYPE 2 EPIDIDYMITIS HEPATITIS C CHRONIC WITH LIVER CIRRHOSIS TREATED WITH 12 WEEKS MAVYRET HEP C IS CURED HYPERLIPIDEMIA CERVICALGIA PTSD SACROILIITIS HERPESVIRAL INFECTION OF UROGENITAL SYSTEM BALANITIS LUMBAR SPONDYLOSIS PIRIFORMIS MUSCLE PAIN ALLERGIES ASPIR-81: VOMITING - SIDE EFFECTS SURGICAL HISTORY RIGHT EPIDIDYMAL CYST REMOVAL 07/08/[address] ROBIN 08/2016 LEFT INGUINAL HERNIA 02/10/2017 PIRIFORMIS MUSCLE INJECTION -RIGHT-[facility] 12/28/2016 BILATIERAL INGUINAL HERNIA REPAIR 02/10/17 RIGHT HERNIA REPAIR 06/2017 FAMILY HISTORY FATHER: , DIAGNOSED WITH HYPERTENSION MOTHER: , DIABETES SIBLINGS: ALIVE DAUGHTER(S): ALIVE 1 BROTHER(S) , 2 SISTER(S) . 2DAUGHTER(S) . SOCIAL HISTORY GENERAL: TOBACCO USE ARE YOU A:FORMER SMOKER HOW LONG HAS IT BEEN SINCE YOU LAST SMOKED?1-5 YEARS SMOKING CESSATION INFORMATION GIVEN04/01/2019 LATEX QUESTIONNAIRE LATEX ALLERGY : HAVE YOU EVER DEVELOPED ANY TYPE OF REACTION AFTER HANDLING LATEX PRODUCTS SUCH RUBBER GLOVES, CONDOMS, DIAPHRAGMS, BALLOONS, SOCKS, OR UNDERWEAR?NO LATEX ALLERGY : HAVE YOU EVER DEVELOPED ANY TYPE OF REACTION DURING OR AFTER DENTAL APPOINTMENT, VAGINAL/RECTAL EXAMINATION, SURGICAL PROCEDURE, OR ANY OTHER EXPOSURE?NO DATE ASKED : 05/08/2019 LATEX RISK : HAVE YOU EVER HAD ANY DIFFICULTY BREATHING OR HIVES AFTER EATING OR HANDLING ANY FRUITS, OR VEGETABLES; SUCH KIWI, BANANAS, STONE FRUITS, OR CHESTNUTSNO LATEX RISK : DO YOU HAVE A PREVIOUS PERSONAL HISTORY OF MORE THAN NINE SURGERIES, SPINA BIFIDA, OR REPEATED CATHERIZATIONS? NO LATEX RISK : ARE YOU FREQUENTLY EXPOSED TO LATEX PRODUCTS IN YOUR OCCUPATION?NO BMI CARE GOAL FOLLOW-UP ABOVE NORMAL BMI FOLLOW-UPLIFESTYLE EDUCATION REGARDING DIET ALCOHOL SCREENING DID YOU HAVE A DRINK CONTAINING ALCOHOL IN THE PAST YEAR?NO POINTS0 INTERPRETATIONNEGATIVE RECREATIONAL DRUG USE DRUG USE?NO CAFFEINE CAFFEINE USE?YES SEXUAL HX HAD SEX IN THE LAST 12 MONTHS (VAGINAL, ORAL, OR ANAL)?YES WITHWOMEN ONLY PREVENTION STRATEGIES DISCUSSED:CONDOMS USE PROTECTION?NO HAVE YOU EVER HAD AN STD?NO HIV / HEP-C SCREENING HIV TEST OFFERED TO PATIENT:YES DATE OFFERED:10/06/2016 TEST ACCEPTED:NO HEP-C TEST OFFERED TO PATIENT:YES DATE OFFERED:10/06/2016 REASON:PATIENT DECLINED TEST ACCEPTED:NO REASON:PATIENT DECLINED YAZIDISM [id number] ANABAPTISM LANGUAGE ARABIC. EDUCATION LEVEL OF EDUCATION:NOT FINISHED COLLEGE LEARNING BARRIERS / SPECIAL NEEDS CHANGE FROM LAST VISIT?YES BARRIERS TO LEARNING?NO HEARING IMPAIRED?NO VISION IMPAIRED?YES COGNITIVELY IMPAIRED?NO :CORRECTIVE LENSES READINESS TO LEARN?YES LEARNING PREFERENCES?NO LEARNING CAPABILITIES PRESENT?YES EMOTIONAL BARRIERS?NO SPECIAL DEVICES?NO HEART SURGEON NEEDED?NO DOMESTIC VIOLENCE DO YOU FEEL SAFE IN YOUR ENVIRONMENT?YES OCCUPATION: NOT WORKING, UNABLE APPLYING FOR SSDI. DIET: REGULAR. EXERCISE: NO REGULAR EXERCISE. MARITAL STATUS: SINGLE. OTHERS AT HOME: GIRLFRIEND. NEW PATIENT PAIN DIARY TODAY'S VISIT 11/01/2019 PATIENT DESCRIBES PAIN :BURNING, IT COMES AND GOES, SHARP FROM 0-10, WHAT LEVEL IS YOUR PAIN TODAY?4 PRECIPITATING FACTORS BENDING HEAD DOWN ALLEVIATING FACTORS RESTING IMPACT ON FUNCTION YES PAIN CLINIC PFS, CLERGY, PUBLIC HEALTH REFERRALS PFS REFERRAL NEEDED?NO CLERGY REFERRAL NEEDED?NO PUBLIC HEALTH REFERRAL NEEDED?NO WAS THE PROVIDER NOTIFIED OF ANY PERTINENT INFO? N/A HAS THE PATIENT BEEN EDUCATED REGARDING HIS/HER PLAN OF CARE?YES HAS THE PATIENT BEEN EDUCATED REGARDING PAIN, THE RISK FOR PAIN, THE IMPORTANCE OF EFFECTIVE PAIN MANAGEMENT, AND THE PAIN ASSESSMENT PROCESS?YES ADVANCE DIRECTIVE ADVANCE DIRECTIVE DISCUSSED WITH PATIENT:YES YES, PT STATES HCP IS TANNER PERERA - DAUGHTER [phone] PT STATES HE IS CUTTING DOWN ON SMOKING ALOT DOWN TO 2 DAILY11/27/17 1045 REVIEWED WITH PT. ADLREVIEWED WITH PT 03/01/18 1450 LASREVIEWED WITH PT 04/30/18 1106 BVREVIEWED WITH PATIENT 07/19/18 1058 JS06/28/2019 0915 REVIEWED WITH PT. AD05/08/19 REVIEWED WITH PT. ADREVIEWED WTIH PT 09/11/18 1324 BVREVIEWED WITH PT 10/25/18 1300 LAS06/28/2019 0915REVIEWED WITH PT. AD. HOSPITALIZATION/MAJOR DIAGNOSTIC PROCEDURE HYPOTENSIVE AND HYPERGLYCEMIA 08/2018 FACIAL DROOPING, POSSIBLE STROKE/SHORT'S PALSY 02/2019 REVIEW OF SYSTEMS REVIEWED BY: PROVIDER: KIARA MAYER MD . CONSTITUTIONAL: ANY CHANGE IN YOUR MEDICAL CONDITION? NO . CHILLS NO . FEVER NO . INFECTION: DO YOU HAVE NEW INFECTIONS? NO . DO YOU HAVE HISTORY OF MRSA? NO . MUSCULOSKELETAL: ANY NEW PATTERNS OF PAIN OR NUMBNESS? NO . GASTROENTEROLOGY: ANY NEW CHANGE IN BOWEL CONTROL? NO . GENITOURINARY: ANY NEW CHANGE IN BLADDER CONTROL? NO . IS THERE A CHANCE YOU COULD BE ? NO . HEMATOLOGY/LYMPH: DO YOU TAKE ANY BLOOD THINNERS? (FOR EXAMPLE- COUMADIN, PLAVIX, AGGRENOX, PLATEL, PRADAXA, OR XARELTO) NO . WHEN WAS YOUR LAST DOSE? DATE: TIME: . NEUROLOGY: HAVE YOU FALLEN IN THE PAST 12 MONTHS? YES, PRIOR TO LAST VISIT . ANY NEW EXTREMITY NUMBNESS OR WEAKNESS? NO . CARDIOLOGY: DO YOU HAVE A PACEMAKER OR DEFIBRILLATOR? NO . RESPIRATORY: HAVE YOU BEEN SICK IN THE PAST WEEK? NO . FEVER NO . FLU LIKE SYMPTOMS? NO . COUGH NO . INTEGUMENTARY: DO YOU HAVE ANY RASHES OR OPEN SORES? NO . ALLERGIC/IMMUNO: ARE YOU ALLERGIC TO IV DYE? NO . ANY NEW ALLERGIES? NO . PSYCHIATRIC: DO YOU HAVE THOUGHTS OF HURTING YOURSELF OR SOMEONE ELSE? NO . ARE YOU ABUSED, NEGLECTED, OR IN AN UNSAFE ENVIRONMENT? NO . ENDOCRINOLOGY: ARE YOU DIABETIC? YES . OTHER: DO YOU NEED ANY PRESCRIPTIONS? NO . IF YES, PLEASE LIST: ____ . ANY NEW PROBLEMS WITH YOUR MEDICATIONS? NO . WHEN DID YOU LAST EAT? 10/31/2019 1930 . WHEN DID YOU LAST DRINK? 11/01/2019 0730 . WHAT DID YOU LAST DRINK? WATER . NAME OF PERSON DRIVING YOU HOME? TRANSPORTATION- MEDICAID . DO YOU HAVE ANY OTHER QUESTIONS OR CONCERNS NO . VITAL SIGNS WT 208.8 LBS, HT 66 IN, BMI 33.70 INDEX, BP 119/75 MM HG, HR 58 /MIN, RR 18 /MIN, TEMP 96.7 F, OXYGEN SAT % 97%, BLOOD GLUCOSE LEVEL 123, SAFE IN ENV? (Y/N) YES, NA INITIALS AW 0843, REVIEWED BY: NIKITA. ASSESSMENTS MYALGIA - M79.1 (PRIMARY) CERVICALGIA - M54.2 TREATMENT OTHERS CLINICAL NOTES: PRE SCREENING CALL DONE 10/31/19 EM. PROCEDURES PN TRIGGER POINT INJECTION WITH STEROIDS PRE PROCEDURE DIAGNOSIS 1. MYALGIA 2. PAIN AT BILATERAL NECK AREA POST PROCEDURE DIAGNOSIS 1. MYALGIA 2. PAIN AT BILATERAL NECK AREA PROCEDURE TRIGGER POINT INJECTION AT BILATERAL NECK AREA SURGEON DR. KIARA MAYER OCCUPATIONAL HEALTH COORDINATOR NONE ANESTHESIA LOCAL PRE PROCEDURE NOTE THE PATIENT HAS A HISTORY OF CHRONIC PAIN AT THE RIGHT AND LEFT NECK AREA. I EVALUATED THE PATIENT AND REVIEWED THE CHART. THERE IS EVIDENCE OF BANDS OF TISSUE WITH RESTRICTION OF MOVEMENT AND PRESENCE OF TRIGGER POINT AT THE RIGHT AND LEFT NECK AREA. I WENT OVER THE RISKS, ALTERNATIVES, AND BENEFITS ASSOCIATED WITH THIS PROCEDURE. I DISCUSSED WITH THE PATIENT THAT THE USE OF STEROIDS MAY CONTRIBUTE TO IMMUNOSUPPRESSION OF HIS BODY AGAINST INFECTIONS SUCH THE QUIJANO VIRUS, COVID-19. HE IS AWARE OF THE POTENTIAL COMPLICATIONS ASSOCIATED WITH AN INFECTION OF THIS VIRUS INCLUDING . THE PATIENT WOULD LIKE TO PROCEED AND GIVE CONSENT TO PERFORMED THE PROCEDURE. THE PATIENT DENIES UNEXPLAINABLE WEIGHT LOSS, FEVER, CHILLS, OR NEW CHANGES IN URINARY OR BOWEL CONTROL. THE PATIENT IS COVID-19 NEGATIVE DESCRIPTION OF PROCEDURE THE PATIENT WAS BROUGHT TO THE PROCEDURE ROOM AND PLACED IN THE SITTING POSITION. THE AREA WAS CLEANED WITH ALCOHOL. THE PROCEDURE WAS DONE USING ASEPTIC STERILE TECHNIQUE. I CHECKED LATERALITY AND THE LEVEL WHERE THE PROCEDURE WAS GOING TO BE PERFORMED WITH THE PATIENT AND THE SUPPORTING STAFF AT THE MOMENT OF THE TIME OUT IN THE PROCEDURE ROOM. USING A 25-GAUGE NEEDLE, TRIGGER POINTS WERE INJECTED AT THE RIGHT AND LEFT NECK AREA WITH A TOTAL OF 40 ML OF BUPIVACAINE 0.25% AND DEXAMETHASONE 10 MG. THERE WAS NO EVIDENCE OF BLOOD, PARESTHESIA OR CEREBROSPINAL FLUID DURING THE PROCEDURE. THE PATIENT WAS SENT TO THE RECOVERY ROOM. THE PATIENT WAS MOVING THE EXTREMITIES AND DOING WELL. THERE WAS NO COMPLICATION DURING THE PROCEDURE POST PROCEDURE NOTE THE PATIENT WILL BE SEEN IN A FOLLOW UP IN THE NEXT FEW WEEKS. I AM LOOKING FOR LONG LASTING PAIN RELIEF FOR THE PATIENT WITH THIS INJECTION. INSTRUCTIONS WERE GIVEN, QUESTIONS WERE ANSWERED, AND THE PATIENT EXPRESSED UNDERSTANDING AND AGREED WITH THE PLAN. THE PATIENT IS AWARE TO STAY HOME FOR THE NEXT WEEK, IF POSSIBLE, DUE TO COVID-19. I, CINDY PLATT, DOCUMENTED THE ABOVE INFORMATION ACTING A SCRIBE FOR DR. MAYER. I HAVE REVIEWED THE ABOVE DOCUMENT, WRITTEN BY CINDY PLATT, HUMAN RESOURCES TECHNICIAN, AND I VERIFY THAT IT IS ACCURATE PROCEDURE CODES 62438 INJ TRIGGER POINT 1/2 MUSCL DISPOSITION & COMMUNICATION FOLLOW UP F/UP WITH WHEEL ROLLER (REASON: POST TPI-MAURICIO NECK) ELECTRONICALLY SIGNED BY KIARA MAYER MD, MD ON 11/01/2019 AT 04:58 PM EDT DISCLAIMER : THIS IS A VISIT SUMMARY EXTRACTED FROM THE [employer] CHART. IT IS NOT A COPY OF THE [employer] PROGRESS NOTE. MTDDeny
== END ==
LOC: M PAIN 09:00
PROVIDERS: ATTEND Anesthesiology
DX: M54.2 Cervicalgia (principal); I10 Essential (primary) hypertension; Z79.84 Long term (current) use of oral hypoglycemic drugs; Z79.899 Other long term (current) drug therapy; Z88.8 Allergy status to other drugs, medicaments and biological substances; Z87.891 Personal history of nicotine dependence
CPT/HCPCS: 20552; J1100

== ENCOUNTER 2019-11-04 10:43 | Outpatient (RCR) | payer OTHER ==
[~2019-11-04 10:43] MED LIST changes: -BUPIVACAINE HCL 0.25% 10ML VIAL As Ordered ONE; -BUPIVACAINE HCL 0.25% 30ML VIAL As Ordered ONE; -dexameTHASONE 10MG/1ML VIAL PRES.FREE (J1100 PER 1MG) As Ordered ONE; -diazePAM 5 MG TAB As Ordered ONE; -oxyCODONE 5MG TAB As Ordered ONE
== END 2019-11-17 ==
LOC: M PT 10:43
PROVIDERS: ATTEND Student in an Organized Health Care Education/Training Program
DX: Z51.89 Encounter for other specified aftercare (principal); R26.81 Unsteadiness on feet

== ENCOUNTER → 2019-11-15 | Outpatient (CLI) | payer OTHER ==
[2019-11-15 12:43] LABS: BASO % 0.4 % (0.0-1.0); EOS # 0.2 10^3/uL (0.0-0.5); EOS % 1.4 % (0.0-3.0); HEMATOCRIT 45.2 % (42.0-52.0); HEMOGLOBIN 15.5 g/dl (13.5-17.5); LYMPH # 2.3 10^3/uL (1.5-5.0); LYMPH % 21.3 % (24.0-44.0); MEAN CORPUSCULAR HGB CONC 34.3 g/dl (32.0-36.5); MEAN CORPUSCULAR VOLUME 96.2 fl (80.0-96.0); MONO # 0.9 10^3/uL (0.0-0.8); NEUTROPHILS # 7.4 10^3/uL (1.5-8.5); NEUTROPHILS % 68.7 % (36.0-66.0); PLATELET COUNT, AUTOMATED 145 10^3/uL (150-450); WHITE BLOOD COUNT 10.7 10^3/uL (4.0-10.0)
== END ==
LOC: M LAB 11:57
PROVIDERS: ATTEND Internal Medicine Gastroenterology
DX: R11.0 Nausea (principal)

== ENCOUNTER → 2019-11-22 | Outpatient (CLI) | payer OTHER ==
--- NOTE | 2019-11-26 03:01 | ECWPNPC ---
PATIENT NAME: ALLYN PERERA : 1960 GENDER: MALE VISIT DATE: 11/22/2019 DISCHARGE DATE: 11/22/19 1210 VISIT LOCKED DATE TIME: PHYSICIAN: ALFA CARRASCO RESOURCE: ALFA CARRASCO REASON FOR APPOINTMENT 1. POST TPI [phone] PAT DONE HISTORY OF PRESENT ILLNESS GENERAL: PATIENT IS AGREEABLE TO TELEPHONE VISIT TODAY. HAD A EMERGENCY ROOM VISIT FOR SEVERE NECK PAIN. HAD TRIGGER POINT INJECTIONS ON 11/01/2019. REPORTS MARKED REDUCTION IN NECK PAIN POSTPROCEDURE. CONTINUES TO BENEFIT FROM PROCEDURE TODAY. DISCUSSED MEDICATION AND TREATMENT PLAN. -. FALL RISK SCREENING: SCREENING :ONE FALL WITH INJURY IN THE PAST YEAR PAIN SCREENING: PATIENT HAS A COMPLAINT OF ACUTE OR CHRONIC PAIN :YES 11/21/19 INTENSITY OF PAIN (SCALE OF 1 TO 10):3 WHAT DOES YOUR PAIN FEEL LIKE:ACHING, STABBING PAIN IS INCREASED BY: ACTIVITY PAIN IS DECREASED BY: SITTING, REST NURSING NOTE: -. PAIN CENTER INTAKE QUESTIONS: DO YOU HAVE A HISTORY OF MRSA? :NO DO YOU TAKE A BLOOD THINNERS? :NO DO YOU HAVE ANY BLEEDING DISORDERS? :NO ANY NEW NUMBNESS OR WEAKNESS IN YOUR LEGS OR ARMS? :NO ANY PACEMAKER,DEFIBRILLATOR, OR DORSAL COLUMN STIMULATOR? :NO DO YOU HAVE ANY RASHES OR OPEN SORES? :NO ARE YOU ALLERGIC TO IV DYE? :NO ARE YOU DIABETIC? :YES ANY NEW PROBLEMS WITH YOUR MEDICATIONS? :NO HAVE YOU RECEIVED A VACCINE IN THE PAST 30 DAYS? :NO DO YOU PLAN TO RECEIVE A VACCINE IN THE NEXT 21 DAYS? :NO DO YOU NEED ANY PRESCRIPTION? :NO DO YOU TAKE ANY IMMUNOSUPPRESSIVE MEDICATIONS? :NO CURRENT MEDICATIONS TAKING FLONASE 50 MCG/ACT SUSPENSION 1 SPRAY IN EACH NOSTRIL NASALLY ONCE A DAY NEEDED TAKING BLOOD GLUCOSE METER - KIT 1 METER DX:E11.65 TWICE DAILY TAKING BD LANCET ULTRAFINE 33G - MISCELLANEOUS 1 LANCET INTRADERMALLY TWICE DAILY DX:E11.65 TAKING ALCOHOL PREP PAD 70 % PAD 1 TOPICALLY TWICE DAILY DX:E11.65 TAKING COMPRESSION STOCKINGS 15-20 MMHG DIRECTED DX: I87.2 DAILY TAKING CLONAZEPAM 0.5 MG TABLET 1 TABLET AT BEDTIME ORALLY ONCE A DAY TAKING PRAZOSIN HCL 5 MG CAPSULE 1 CAPSULE AT BEDTIME ORALLY ONCE A DAY TAKING GLIMEPIRIDE 2 MG TABLET 1 TAB BID WITH FOOD ORALLY TWICE DAILY TAKING BLOOD GLUCOSE TEST STRIP - STRIP 1 STRIP IN VITRO DX:E11.65 TWICE DAILY TAKING METFORMIN HCL 1000 MG TABLET 1 TABLET WITH MEALS ORALLY TWICE DAILY TAKING ZYRTEC ALLERGY 10 MG TABLET 1 TABLET ORALLY ONCE A DAY NEEDED TAKING STEGLATRO 15 MG TABLET 1 TABLET ORALLY ONCE A DAY TAKING LISINOPRIL 20 MG TABLET TAKE ONE TABLET BY MOUTH EVERY DAY TAKING HOME STYLE BED RAILS - MISCELLANEOUS DIRECTED [facility] # [id number] USE UNDER THE BED RAILS EVERY NIGHT TO PREVENT FALLING OUT OF BED TAKING QUETIAPINE FUMARATE 100 MG TABLET 1/2 TABLET AT BEDTIME ORALLY ONCE A DAY TAKING LYRICA 300 MG CAPSULE 1 CAPSULE 1 TO 3 HOURS BEFORE BEDTIME IN THE EVENING ORALLY BID TAKING ATORVASTATIN CALCIUM 80 MG TABLET TAKE 1 TABLET BY MOUTH ONCE A DAY TAKING CAPSAICIN 0.025 % CREAM 1 APPLICATION TO AFFECTED AREA NEEDED EXTERNALLY OB LOWER EXT BILATERAL THREE TIMES A DAY TAKING TIZANIDINE HCL 4 MG TABLET 1 TABLET NEEDED ORALLY NEEDED FOR SPASMS AND PAIN BEFORE BEDTIME TAKING AMLODIPINE BESYLATE 10 MG TABLET 1 TABLET ORALLY ONCE A DAY TAKING BUPROPION HCL ER (SR) 150 MG TABLET EXTENDED RELEASE 12 HOUR 1 TABLET ORALLY TWICE A DAY TAKING METOPROLOL TARTRATE 100 MG TABLET 1 TABLET WITH FOOD ORALLY TWICE A DAY TAKING OMEPRAZOLE 20 MG CAPSULE DELAYED RELEASE 1 CAPSULE ORALLY BEFORE BEDTIME NOT-TAKING SOMA 350 MG TABLET 1 TABLET NEEDED ORALLY FOR SPASMS AND PAIN EVERY 8 HOURS NEEDED MDD3 NOT-TAKING KETOROLAC TROMETHAMINE 10 MG TABLET 1 TABLET WITH FOOD OR MILK NEEDED ORALLY FOR PAIN EVERY 8 HRS MDD3 MEDICATION LIST REVIEWED AND RECONCILED WITH THE PATIENT PAST MEDICAL HISTORY HTN SHORT''S PALSY UNSPECIFIED ESSENTIAL HYPERTENSION NONDEPENDENT TOBACCO USE DISORDER SMOKING MIGRAINE WITHOUT AURA, WITH INTRACTABLE MIGRAINE, SO STATED, WITHOUT MENTION OF STATUS MIGRAINOSUS ALLERGIC CONJUNCTIVITIS HYPERLIPIDEMIA ESSENTIAL HYPERTENSION ASCVD10 (2016)- 11.5% DIEBETIC TYPE 2 EPIDIDYMITIS HEPATITIS C CHRONIC WITH LIVER CIRRHOSIS TREATED WITH 12 WEEKS M[facility]RET HEP C IS CURED HYPERLIPIDEMIA CERVICALGIA PTSD SACROILIITIS HERPESVIRAL INFECTION OF UROGENITAL SYSTEM BALANITIS LUMBAR SPONDYLOSIS PIRIFORMIS MUSCLE PAIN ALLERGIES ASPIR-81: VOMITING - SIDE EFFECTS SURGICAL HISTORY RIGHT EPIDIDYMAL CYST REMOVAL 07/08/[address] ROBIN 08/2016 LEFT INGUINAL HERNIA 02/10/2017 PIRIFORMIS MUSCLE INJECTION -RIGHT-[facility] 12/28/2016 BILATIERAL INGUINAL HERNIA REPAIR 02/10/17 RIGHT HERNIA REPAIR 06/2017 BILAT EYE LID LIFTS 10/2019 FAMILY HISTORY FATHER: , DIAGNOSED WITH HYPERTENSION MOTHER: , DIABETES SIBLINGS: ALIVE DAUGHTER(S): ALIVE 1 BROTHER(S) , 2 SISTER(S) . 2DAUGHTER(S) . HOSPITALIZATION/MAJOR DIAGNOSTIC PROCEDURE HYPOTENSIVE AND HYPERGLYCEMIA 08/2018 FACIAL DROOPING, POSSIBLE STROKE/SHORT'S PALSY 02/2019 REVIEW OF SYSTEMS CONSTITUTIONAL: ANY RECENT FEVER OR ILLNESS NO . CHILLS NO . GASTROENTEROLOGY: BOWEL INCONTINENCE NO . ANY NEW CHANGE IN BOWEL CONTROL? NO . ABDOMINAL PAIN NO . CONSTIPATION NO . GENITOURINARY: ANY NEW CHANGE IN BLADDER CONTROL? NO . IS THERE A CHANCE YOU COULD BE ? NO . URINARY INCONTINENCE NO . CARDIOLOGY: CHEST PRESSURE NO . CHEST PAIN NO . RESPIRATORY: COUGH NO . SHORTNESS OF BREATH NO . ASSESSMENTS CERVICALGIA - M54.2 (PRIMARY) MYALGIA, OTHER SITE - M79.18 TREATMENT CERVICALGIA NOTES: CONTINUE HOME STRETCHING EXERCISES. CONTINUE USE OF TIZANIDINE NEEDED FOR SEVERE PAIN EPISODES. FOLLOW-UP IS SCHEDULED IN CLINIC IN 2 MONTHS. TOTAL TIME SPENT DURING TELEPHONE VISIT WAS APPROXIMATELY 11 MINUTES. OTHERS CLINICAL NOTES: PRE SCREENING CALL DONE 11/21/19. DISPOSITION & COMMUNICATION FOLLOW UP 3 MONTHS (REASON: NECK PAIN) ELECTRONICALLY SIGNED BY BARBARA HEARD ON 11/25/2019 AT 03:25 PM EDT DISCLAIMER : THIS IS A VISIT SUMMARY EXTRACTED FROM THE [employer] CHART. IT IS NOT A COPY OF THE [employer] PROGRESS NOTE. DARLIN
== END ==
LOC: M PAIN 10:00
PROVIDERS: ATTEND Nurse Practitioner Family
DX: M54.2 Cervicalgia (principal); M79.18 Myalgia, other site

== ENCOUNTER → 2019-11-29 | Outpatient (REF) | payer OTHER ==
[2019-11-29 16:00] LABS: HEMOGLOBIN A1c 6.5 %
== END ==
LOC: M SFHCPLAZ 13:45
DX: E11.42 Type 2 diabetes mellitus with diabetic polyneuropathy (principal); K74.60 Unspecified cirrhosis of liver

== ENCOUNTER 2019-12-12 11:39 | Outpatient (RCR) | payer OTHER | END 2019-12-17 | LOC: M PT 11:39 | PROVIDERS: ATTEND Student in an Organized Health Care Education/Training Program | DX: Z51.89 Encounter for other specified aftercare (principal); R26.81 Unsteadiness on feet ==

== ENCOUNTER → 2020-01-01 | Outpatient (CLI) | payer OTHER ==
[~2020-01-01] MED LIST changes: -ALL10TAB29 PO; -AMLO10TA5 PO; +AMLO1TAB24 PO; +AMLO1TAB25 PO; -AMLO5TAB6 PO; +CETI-24 PO; +PANT40TA29 PO; -PANT40TA3 PO
== END ==
LOC: M LRY 09:56
DX: Z53.9 Procedure and treatment not carried out, unspecified reason (principal); R10.11 Right upper quadrant pain

== ENCOUNTER → 2020-01-03 | Outpatient (CLI) | payer OTHER ==
--- NOTE | 2020-01-03 12:16 | REP ---
REASON FOR EXAM: Followup. COMPARISON: 06/20/2019, which showed a coarsened hepatic echotexture without evidence of a focal abnormality. Cholelithiasis was also noted on the prior exam. Today's examination shows cholelithiasis, unchanged. There is no pericholecystic edema. The hepatic parenchymal echo pattern is unchanged, although the examinations are technically different. There is no intrahepatic or extrahepatic ductal dilatation. There is no mass. The common bile duct measures 4.3 mm. Evaluation of the imaged portion of the pancreas and right kidney show them to be within normal limits and unchanged. IMPRESSION: No significant change from the prior exam of 06/20/2019. Electronically Signed by Elijah Acevedo DO 01/03/2020 04:59 P
== END ==
LOC: M LRY 10:31
PROVIDERS: ATTEND Surgery
DX: R10.11 Right upper quadrant pain (principal)

== ENCOUNTER 2020-01-16 11:45 | Outpatient (RCR) | payer OTHER | END 2020-01-17 | LOC: M PT 11:45 | PROVIDERS: ATTEND Student in an Organized Health Care Education/Training Program | DX: R26.81 Unsteadiness on feet (principal) ==

== ENCOUNTER 2020-02-11 11:22 | Outpatient (RCR) | payer OTHER | END 2020-02-17 | LOC: M PT 11:22 | PROVIDERS: ATTEND Student in an Organized Health Care Education/Training Program | DX: R26.81 Unsteadiness on feet (principal) ==

== ENCOUNTER → 2020-02-25 | Outpatient (REF) | payer OTHER ==
[2020-02-25 19:36] LABS: HEMATOCRIT 47.2 % (42.0-52.0); HEMOGLOBIN 15.5 g/dl (13.5-17.5); MEAN CORPUSCULAR HEMOGLOBIN 31.9 pg (27.0-33.0); MEAN CORPUSCULAR HGB CONC 32.8 g/dl (32.0-36.5); MEAN CORPUSCULAR VOLUME 97.1 fl (80.0-96.0); PLATELET COUNT, AUTOMATED 131 10^3/uL (150-450); RED BLOOD COUNT 4.86 10^6/uL (4.30-6.10); WHITE BLOOD COUNT 10.2 10^3/uL (4.0-10.0)
[2020-02-25 19:45] LABS: ALBUMIN 3.9 GM/DL (3.2-5.2); ALT/SGPT 35 U/L (12-78); BILIRUBIN,TOTAL 0.7 MG/DL (0.2-1.0); BLOOD UREA NITROGEN 17 MG/DL (7-18); CALCIUM LEVEL 9.4 MG/DL (8.8-10.2); CARBON DIOXIDE LEVEL 26 MEQ/L (21-32); CHLORIDE LEVEL 110 MEQ/L (98-107); CREATININE FOR GFR 0.84 MG/DL (0.70-1.30); GLOMERULAR FILTRATION RATE > 60.0 (>49); GLUCOSE, FASTING 79 MG/DL (70-100); POTASSIUM SERUM 4.1 MEQ/L (3.5-5.1); SODIUM LEVEL 142 MEQ/L (136-145); TOTAL PROTEIN 7.6 GM/DL (6.4-8.2)
[2020-02-25 19:47] LABS: INR 0.98; PROTHROMBIN TIME 13.2 SECONDS (11.8-14.0)
[2020-02-25 20:33] LABS: HEMOGLOBIN A1c 5.9 %
== END ==
LOC: M LAB REF 19:17
PROVIDERS: ATTEND Family Medicine
DX: K74.60 Unspecified cirrhosis of liver (principal); E11.9 Type 2 diabetes mellitus without complications

== ENCOUNTER → 2020-02-26 | Outpatient (CLI) | payer OTHER ==
--- NOTE | 2020-03-16 10:33 | REP ---
LOW DOSE LUNG SCREENING CT: 02/26/20 CLINICAL: History of nicotine dependence. COMPARISON: 02/14/19. TECHNIQUE: Axial non-contrast images from the thoracic inlet to the upper abdomen using low dose lung screening technique viewed in lung windows only. FINDINGS: The bilateral lung cancino are well aerated and essentially clear. No significant consolidation, nodule or mass lesion is appreciated. A small 2mm density along the periphery of the right lower lobe remains stable. No effusion. Tracheobronchial tree is patent. Limited evaluation of the mediastinum again demonstrates atherosclerotic disease to the thoracic aorta and coronary arteries along with mild cardiomegaly. IMPRESSION: Lung RADS 2. Benign stable findings. Management recommendations include annual low dose surveillance. MTDD
== END ==
LOC: M RAD 11:09
PROVIDERS: ATTEND Internal Medicine Pulmonary Disease
DX: F17.210 Nicotine dependence, cigarettes, uncomplicated (principal); Z12.2 Encounter for screening for malignant neoplasm of respiratory organs

== ENCOUNTER → 2020-04-28 | Outpatient (CLI) | payer OTHER ==
--- NOTE | 2020-04-29 23:14 | ECWPNPC ---
PATIENT NAME: ALLYN PERERA : 1960 GENDER: MALE VISIT DATE: 04/28/2020 DISCHARGE DATE: 04/28/20 1121 VISIT LOCKED DATE TIME: PHYSICIAN: ALFA CARRASCO PHYSICIAN PAGER NO: ACTIVE RESOURCE: ALFA CARRASCO REASON FOR APPOINTMENT 1. WANTS PROCEDURE HISTORY OF PRESENT ILLNESS GENERAL: BEING SEEN TODAY FOR CHRONIC NECK AND LOW BACK PAIN. NECK PAIN HAS INCREASED OVER THE PAST COUPLE OF WEEKS WELL HIS LOWER BACK AREA. NECK IS WORST AREA OF PAIN. PAIN IS AGGRAVATED BY RANGE OF JOINT MOTION OF HIS NECK. HAS RESPONDED WELL TO TRIGGER POINT INJECTIONS IN HIS NECK. REVIEWED MRI OF THE CERVICAL SPINE DONE IN 2019 AND DISCUSSED TREATMENT PLAN.-. FALL RISK SCREENING: SCREENING :TWO OR MORE FALLS WITHOUT INJURY IN THE PAST YEAR PATIENT REPORTS MULTIPLE FALS WITH SCRAPS AND BRUISING, PATIENT HAS STARTED USING A CANE TO HELP WITH AMBULATION. PAIN SCREENING: PATIENT HAS A COMPLAINT OF ACUTE OR CHRONIC PAIN :YES LOCATION OF PAIN: LOW BACK, RIGHT SIDE NECK INTENSITY OF PAIN (SCALE OF 1 TO 10):5 WHAT DOES YOUR PAIN FEEL LIKE:SORE, TENDER DURATION:CONSTANT, RHYTHMIC, AWAKENS FROM SLEEP PAIN IS INCREASED BY:ACTIVITIES, PROLONGED STANDING PLAN/GOALS/TREATMENT/INTERVENTION/FOLLOW UP:SEE PLAN NURSING NOTE: -. PAIN CENTER INTAKE QUESTIONS: DO YOU HAVE A HISTORY OF MRSA? :NO DO YOU TAKE A BLOOD THINNERS? :NO DO YOU HAVE ANY BLEEDING DISORDERS? :NO ANY NEW NUMBNESS OR WEAKNESS IN YOUR LEGS OR ARMS? :YES INTERMITTENT LEG ARM NUMBNESS, COMES AND GOES ANY PACEMAKER,DEFIBRILLATOR, OR DORSAL COLUMN STIMULATOR? :NO DO YOU HAVE ANY RASHES OR OPEN SORES? :NO ARE YOU ALLERGIC TO IV DYE? :NO ARE YOU DIABETIC? :YES FS 04/27/20 132 ANY NEW PROBLEMS WITH YOUR MEDICATIONS? :NO HAVE YOU RECEIVED A VACCINE IN THE PAST 30 DAYS? :YES LAST WEEK TO TWO WEEKS AGO. IF SO WHAT VACCINE AND WHEN? FLU DO YOU PLAN TO RECEIVE A VACCINE IN THE NEXT 21 DAYS? :NO DO YOU NEED ANY PRESCRIPTION? :YES ZANAFLEX DO YOU TAKE ANY IMMUNOSUPPRESSIVE MEDICATIONS? :NO IS THERE A CHANCE YOU COULD BE ? :NO ARE YOU BREAST FEEDING? :NO CURRENT MEDICATIONS TAKING FLONASE 50 MCG/ACT SUSPENSION 1 SPRAY IN EACH NOSTRIL NASALLY ONCE A DAY NEEDED TAKING BLOOD GLUCOSE METER - KIT 1 METER DX: TWICE DAILY TAKING BD LANCET ULTRAFINE 33G - MISCELLANEOUS 1 LANCET INTRADERMALLY TWICE DAILY DX: TAKING ALCOHOL PREP PAD 70 % PAD 1 TOPICALLY TWICE DAILY DX: TAKING COMPRESSION STOCKINGS 15-20 MMHG DIRECTED DX: I87.2 DAILY TAKING CLONAZEPAM 0.5 MG TABLET 1 TABLET AT BEDTIME ORALLY ONCE A DAY TAKING PRAZOSIN HCL 5 MG CAPSULE 1 CAPSULE AT BEDTIME ORALLY ONCE A DAY TAKING BLOOD GLUCOSE TEST STRIP - STRIP 1 STRIP IN VITRO DX: TWICE DAILY TAKING STEGLATRO 15 MG TABLET 1 TABLET ORALLY ONCE A DAY TAKING HOME STYLE BED RAILS - MISCELLANEOUS DIRECTED [facility] # [id number] USE UNDER THE BED RAILS EVERY NIGHT TO PREVENT FALLING OUT OF BED TAKING QUETIAPINE FUMARATE 100 MG TABLET 1/2 TABLET AT BEDTIME ORALLY ONCE A DAY TAKING CAPSAICIN 0.025 % CREAM 1 APPLICATION TO AFFECTED AREA NEEDED EXTERNALLY OB LOWER EXT BILATERAL THREE TIMES A DAY TAKING TIZANIDINE HCL 4 MG TABLET 1 TABLET NEEDED ORALLY NEEDED FOR SPASMS AND PAIN BEFORE BEDTIME TAKING BUPROPION HCL ER (SR) 150 MG TABLET EXTENDED RELEASE 12 HOUR 1 TABLET ORALLY TWICE A DAY TAKING METOPROLOL TARTRATE 100 MG TABLET 1 TABLET WITH FOOD ORALLY TWICE A DAY TAKING OMEPRAZOLE 20 MG CAPSULE DELAYED RELEASE 1 CAPSULE ORALLY BEFORE BEDTIME TAKING OZEMPIC (0.25 OR 0.5 MG/DOSE) 2 MG/1.5ML SOLUTION PEN-INJECTOR DIRECTED 0.25 MG INJ SUBCUTANEOUS WEEKLY TAKING METFORMIN HCL 1000 MG TABLET 1 TABLET WITH MEALS ORALLY TWICE DAILY TAKING LISINOPRIL 20 MG TABLET TAKE ONE TABLET BY MOUTH EVERY DAY TAKING ZYRTEC ALLERGY 10 MG TABLET 1 TABLET ORALLY ONCE A DAY NEEDED TAKING ATORVASTATIN CALCIUM 80 MG TABLET TAKE 1 TABLET BY MOUTH ONCE A DAY TAKING SPIRONOLACTONE 25 MG TABLET 1 TABLET ORALLY ONCE A DAY TAKING GLIMEPIRIDE 2 MG TABLET 1 TAB BID WITH FOOD ORALLY TWICE DAILY TAKING AMLODIPINE BESYLATE 10 MG TABLET 1 TABLET ORALLY ONCE A DAY TAKING LYRICA 300 MG CAPSULE 1 CAPSULE ORALLY BID NOT-TAKING DIFLUCAN 100 MG TABLET 1 TABLET ORALLY DAILY NOT-TAKING KETOCONAZOLE 2 % CREAM 1 APPLICATION EXTERNALLY TO HEAD OF PENIS TWICE A DAY NOT-TAKING SOMA 350 MG TABLET 1 TABLET NEEDED ORALLY FOR SPASMS AND PAIN EVERY 8 HOURS NEEDED MDD3 NOT-TAKING KETOROLAC TROMETHAMINE 10 MG TABLET 1 TABLET WITH FOOD OR MILK NEEDED ORALLY FOR PAIN EVERY 8 HRS MDD3 MEDICATION LIST REVIEWED AND RECONCILED WITH THE PATIENT PAST MEDICAL HISTORY HTN SHORT''S PALSY UNSPECIFIED ESSENTIAL HYPERTENSION NONDEPENDENT TOBACCO USE DISORDER SMOKING MIGRAINE WITHOUT AURA, WITH INTRACTABLE MIGRAINE, SO STATED, WITHOUT MENTION OF STATUS MIGRAINOSUS ALLERGIC CONJUNCTIVITIS HYPERLIPIDEMIA ESSENTIAL HYPERTENSION ASCVD10 (2016)- 11.5% DIEBETIC TYPE 2 EPIDIDYMITIS HEPATITIS C CHRONIC WITH LIVER CIRRHOSIS TREATED WITH 12 WEEKS M[facility]RET HEP C IS CURED HYPERLIPIDEMIA CERVICALGIA PTSD SACROILIITIS HERPESVIRAL INFECTION OF UROGENITAL SYSTEM BALANITIS LUMBAR SPONDYLOSIS PIRIFORMIS MUSCLE PAIN GALLLBLADDER REMOVES -: VOMITING - SIDE EFFECTS SURGICAL HISTORY RIGHT EPIDIDYMAL CYST REMOVAL 07/08/[address] ROBIN 08/2016 LEFT INGUINAL HERNIA 02/10/2017 PIRIFORMIS MUSCLE INJECTION -RIGHT-[facility] 12/28/2016 BILATIERAL INGUINAL HERNIA REPAIR 02/10/17 RIGHT HERNIA REPAIR 06/2017 BILAT EYE LID LIFTS 10/2019 GALLBLADDER REMOVAL 2019 FAMILY HISTORY FATHER: , DIAGNOSED WITH HYPERTENSION MOTHER: , DIABETES SIBLINGS: ALIVE DAUGHTER(S): ALIVE 1 BROTHER(S) , 2 SISTER(S) . 2DAUGHTER(S) . SOCIAL HISTORY GENERAL: TOBACCO USE ARE YOU A:FORMER SMOKER HOW LONG HAS IT BEEN SINCE YOU LAST SMOKED?1-5 YEARS SMOKING CESSATION INFORMATION GIVEN04/01/2019 LATEX QUESTIONNAIRE LATEX ALLERGY : HAVE YOU EVER DEVELOPED ANY TYPE OF REACTION AFTER HANDLING LATEX PRODUCTS SUCH RUBBER GLOVES, CONDOMS, DIAPHRAGMS, BALLOONS, SOCKS, OR UNDERWEAR?NO LATEX ALLERGY : HAVE YOU EVER DEVELOPED ANY TYPE OF REACTION DURING OR AFTER DENTAL APPOINTMENT, VAGINAL/RECTAL EXAMINATION, SURGICAL PROCEDURE, OR ANY OTHER EXPOSURE?NO LATEX RISK : HAVE YOU EVER HAD ANY DIFFICULTY BREATHING OR HIVES AFTER EATING OR HANDLING ANY FRUITS, OR VEGETABLES; SUCH KIWI, BANANAS, STONE FRUITS, OR CHESTNUTSNO LATEX RISK : DO YOU HAVE A PREVIOUS PERSONAL HISTORY OF MORE THAN NINE SURGERIES, SPINA BIFIDA, OR REPEATED CATHERIZATIONS? NO LATEX RISK : ARE YOU FREQUENTLY EXPOSED TO LATEX PRODUCTS IN YOUR OCCUPATION?NO DATE ASKED : 04/28/2020 BMI CARE GOAL FOLLOW-UP ABOVE NORMAL BMI [facility] ED[facility] REGARDING DIET ALCOHOL SCREENING DID YOU HAVE A DRINK CONTAINING ALCOHOL IN THE PAST YEAR?NO POINTS0 INTERPRETATIONNEGATIVE RECREATIONAL DRUG USE DRUG USE?NO CAFFEINE CAFFEINE USE?YES SEXUAL HX HAD SEX IN THE LAST 12 MONTHS (VAGINAL, ORAL, OR ANAL)?YES WITHWOMEN ONLY PREVENTION STRATEGIES DISCUSSED:CONDOMS USE PROTECTION?NO HAVE YOU EVER HAD AN STD?NO HIV / HEP-C SCREENING HIV TEST OFFERED TO PATIENT:YES DATE OFFERED:10/06/2016 TEST ACCEPTED:NO HEP-C TEST OFFERED TO PATIENT:YES DATE OFFERED:10/06/2016 REASON:PATIENT DECLINED TEST ACCEPTED:NO REASON:PATIENT DECLINED TAOISM [id number] CONGREGATIONAL LANGUAGE BULGARIAN. EDUCATION LEVEL OF EDUCATION:NOT FINISHED COLLEGE LEARNING BARRIERS / SPECIAL NEEDS CHANGE FROM LAST VISIT?YES BARRIERS TO LEARNING?NO HEARING IMPAIRED?NO VISION IMPAIRED?YES COGNITIVELY IMPAIRED?NO :CORRECTIVE LENSES READINESS TO LEARN?YES LEARNING PREFERENCES?NO LEARNING CAPABILITIES PRESENT?YES EMOTIONAL BARRIERS?NO SPECIAL DEVICES?NO GIS MANAGER NEEDED?NO DOMESTIC VIOLENCE DO YOU FEEL SAFE IN YOUR ENVIRONMENT?YES OCCUPATION: NOT WORKING, UNABLE APPLYING FOR SSDI. DIET: REGULAR. EXERCISE: NO REGULAR EXERCISE. MARITAL STATUS: SINGLE. OTHERS AT HOME: GIRLFRIEND. TODAY'S VISIT 11/01/2019, PATIENT DESCRIBES PAIN : BURNING, IT COMES AND GOES, SHARP, FROM 0-10, WHAT LEVEL IS YOUR PAIN TODAY? 4, PRECIPITATING FACTORS BENDING HEAD DOWN, ALLEVIATING FACTORS RESTING, IMPACT ON FUNCTION YES. PAIN CLINIC PFS, CLERGY, PUBLIC HEALTH REFERRALS PFS REFERRAL NEEDED?NO CLERGY REFERRAL NEEDED?NO PUBLIC HEALTH REFERRAL NEEDED?NO WAS THE PROVIDER NOTIFIED OF ANY PERTINENT INFO? N/A HAS THE PATIENT BEEN EDUCATED REGARDING HIS/HER PLAN OF CARE?YES HAS THE PATIENT BEEN EDUCATED REGARDING PAIN, THE RISK FOR PAIN, THE IMPORTANCE OF EFFECTIVE PAIN MANAGEMENT, AND THE PAIN ASSESSMENT PROCESS?YES ADVANCE DIRECTIVE ADVANCE DIRECTIVE DISCUSSED WITH PATIENT:YES YES, PT STATES HCP IS TANNER PERERA - DAUGHTER [phone] PT STATES HE IS CUTTING DOWN ON SMOKING ALOT DOWN TO 2 DAILY11/27/17 1045 REVIEWED WITH PT. ADLREVIEWED WITH PT 03/01/18 1450 LASREVIEWED WITH PT 04/30/18 1106 BVREVIEWED WITH PATIENT 07/19/18 1058 JS06/28/2019 0915 REVIEWED WITH PT. AD05/08/19 REVIEWED WITH PT. ADREVIEWEDeny WT PT 09/11/18 1324 BVREVIEWED WITH PT 10/25/18 1300 LAS06/28/2019 0915REVIEWED WITH PT. AD. HOSPITALIZATION/MAJOR DIAGNOSTIC PROCEDURE HYPOTENSIVE AND HYPERGLYCEMIA 08/2018 FACIAL DROOPING, POSSIBLE STROKE/SHORT'S PALSY 02/2019 SURGERIES RELATED REVIEW OF SYSTEMS CONSTITUTIONAL: ANY RECENT FEVER NO . CHILLS NO . WEIGHT CHANGE OF UNKNOWN REASONS NO . GASTROENTEROLOGY: NEW UNEXPLAINABLE CHANGES IN BOWEL CONTROL NO . CONSTIPATION NO . GENITOURINARY: ANY NEW CHANGE IN BLADDER CONTROL? NO . NEUROLOGY: NEW ONSET DIZZINESS OR NEUROLOGICAL CHANGES NOT MENTIONED NO . NEW NUMBNESS OR PAIN PATTERNS NOT MENTIONED AND PERTINENT TO TODAY'S VISIT NO . CARDIOLOGY: NEW CHEST PRESSURE NO . NEW CHEST PAIN NO . RESPIRATORY: UNEXPLAINABLE COUGH NO . NEW SHORTNESS OF BREATH NO . VITAL SIGNS WT 190.2 LBS, HT 66 IN, BMI 30.70 INDEX, BP 141/82 MM HG, HR 58 /MIN, RR 18 /MIN, TEMP 96.4 F, OXYGEN SAT % 95%, BLOOD GLUCOSE LEVEL 132 04/27, SAFE IN ENV? (Y/N) YES, NA INITIALS SC 10:32, REVIEWED BY: MTM. MCMAHON INSTRUCTIONAL TECHNOLOGY COORDINATOR. EXAMINATION GENERAL EXAMINATION: GENERAL AWAKE,ALERT ,PLEASANT . PSYCH AFFECT NORMAL . LUNGS: LUNG SCHNEIDER ARE CLEAR TO AUSCULTATION BILATERALLY. GOOD MOVEMENT OF AIR . HEART: S1, S2 IN A REGULAR RATE AND RHYTHM. NO SIGNIFICANT MURMURS, RUBS OR GALLOPS NOTED . CERVICAL: TRIGGER POINTS: RIGHT TRAPEZIUS.PAIN IS AGGREVATED WITH ROJM NECK. ASSESSMENTS MYALGIA, OTHER SITE - M79.18 (PRIMARY) TREATMENT MYALGIA, OTHER SITE NOTES: TRIGGER POINTS BILATERAL NECK/OCCIPITAL. 04/28/20 1115 PATIENT GIVEN PRE PROCEDURE INSTRUCTIONS FOR TRIGGER POINT INJECTIONS, WITH A HANDOUT ABOUT THE PROCEDURE. PATIENT VERBALIZES UNDERSTANDING. PROCEDURE CODES FA211 ESTABILISHED PATIENT [facility] FACILITY CHARGE DISPOSITION & COMMUNICATION FOLLOW UP POSTPROCEDURE EGG CRATER (REASON: TRIGGER POINTS BILATERAL NECK/OCCIPITAL) ELECTRONICALLY SIGNED BY BARBARA HEARD ON 04/29/2020 AT 12:54 PM EST DISCLAIMER : THIS IS A VISIT SUMMARY EXTRACTED FROM THE [employer] CHART. IT IS NOT A COPY OF THE [employer] PROGRESS NOTE. MTDD
== END ==
LOC: M PAIN 10:15
PROVIDERS: ATTEND Nurse Practitioner Family
DX: M79.18 Myalgia, other site (principal); E11.9 Type 2 diabetes mellitus without complications; I10 Essential (primary) hypertension; G43.909 Migraine, unspecified, not intractable, without status migrainosus; Z86.59 Personal history of other mental and behavioral disorders; Z87.891 Personal history of nicotine dependence; Z88.6 Allergy status to analgesic agent; Z79.84 Long term (current) use of oral hypoglycemic drugs; Z79.899 Other long term (current) drug therapy

== ENCOUNTER → 2020-04-29 | Outpatient (REF) | payer OTHER | LOC: M SFHCPLAZ 10:47 | PROVIDERS: ATTEND Family Medicine | DX: Z53.9 Procedure and treatment not carried out, unspecified reason (principal); K75.81 Nonalcoholic steatohepatitis (NASH); E11.42 Type 2 diabetes mellitus with diabetic polyneuropathy ==

== ENCOUNTER → 2020-05-02 | Outpatient (CLI) | payer OTHER | LOC: M LABSMTC 11:12 | PROVIDERS: ATTEND Anesthesiology | DX: Z20.828 Contact with and (suspected) exposure to other viral communicable diseases (principal) ==

== ENCOUNTER → 2020-05-07 | Outpatient (CLI) | payer OTHER ==
[~2020-05-07] MED LIST changes: +BUPIVACAINE HCL 0.25% 10ML VIAL As Ordered ONE; +BUPIVACAINE HCL 0.25% 30ML VIAL As Ordered ONE; +TRIAMCINOLONE ACETONIDE SUSP 40 MG/ML VIAL (J3301) As Ordered ONE; +diazePAM 5 MG TAB As Ordered ONE; +oxyCODONE 5MG TAB As Ordered ONE
--- NOTE | 2020-05-09 00:07 | ECWPNPC ---
PATIENT NAME: ALLYN PERERA : 1960 GENDER: MALE VISIT DATE: 05/07/2020 DISCHARGE DATE: 05/07/20 1604 VISIT LOCKED DATE TIME: PHYSICIAN: KIARA MAYER MD PHYSICIAN PAGER NO: ACTIVE RESOURCE: KIARA MAYER MD REASON FOR APPOINTMENT 1. TRIGGER POINTS BILATERAL NECK/OCCIPITAL HISTORY OF PRESENT ILLNESS GENERAL: -. FALL RISK SCREENING: SCREENING :TWO OR MORE FALLS WITH INJURY IN THE PAST YEAR STATES HE FALLS FREQUENTLY DUE TO LOSING HIS BALANCE. BRUISED SHOULDER AND KNEES BUT DID NOT SEEK MEDICAL EVALUALTION AFTER ANY OF THE FALLS PAIN SCREENING: PATIENT HAS A COMPLAINT OF ACUTE OR CHRONIC PAIN :YES LOCATION OF PAIN:HEAD, NECK INTENSITY OF PAIN (SCALE OF 1 TO 10):4 AVERAGE 3-5 WHAT DOES YOUR PAIN FEEL LIKE:ACHING, BURNING, INTERMITTENT, SHARP, STABBING, TENDER, THROBBING, SORE, SHOOTING DURATION:ALL DAY, INTERMITTENT PAIN IS INCREASED BY: HAVING HEAD DOWN PAIN IS DECREASED BY: KEEPING NECK AND HEAD STRAIGHT, ICE AND HEAT HELP A LITTLE NURSING NOTE: -. PAIN CENTER INTAKE QUESTIONS: DO YOU HAVE A HISTORY OF MRSA? :NO DO YOU TAKE A BLOOD THINNERS? :NO DO YOU HAVE ANY BLEEDING DISORDERS? :NO ANY NEW NUMBNESS OR WEAKNESS IN YOUR LEGS OR ARMS? :NO ANY PACEMAKER,DEFIBRILLATOR, OR DORSAL COLUMN STIMULATOR? :NO DO YOU HAVE ANY RASHES OR OPEN SORES? :NO ARE YOU ALLERGIC TO IV DYE? :NO ARE YOU DIABETIC? :YES FSBS 132 @ 1100 ANY NEW PROBLEMS WITH YOUR MEDICATIONS? :NO HAVE YOU RECEIVED A VACCINE IN THE PAST 30 DAYS? :YES FLU SHOT LAST WEEK OF MAR DO YOU PLAN TO RECEIVE A VACCINE IN THE NEXT 21 DAYS? :YES IF SO WHAT VACCINE AND WHEN? PLANS ON GETTING SHINGLES SHOT 06/04/20 DO YOU TAKE ANY IMMUNOSUPPRESSIVE MEDICATIONS? :NO ANY HISTORY OF SEIZURES? :NO ANY HISTORY OF CARDIAC ISSUES OR EVENTS? :NO DO YOU HAVE SLEEP APNEA? :NO ANY RECENT HEAD INJURY? :NO DO YOU HAVE ANY NEW INFECTIONS? :NO IS THERE A CHANCE YOU COULD BE ? :NO ARE YOU BREAST FEEDING? :NO WHEN DID YOU LAST EAT? : 05/06 2000 WHEN DID YOU LAST DRINK? : 05/07 800 WHAT DID YOU LAST DRINK? : WATER NAME OF PERSON DRIVING YOU HOME? : ALEJO KIRBY DO YOU HAVE ANY OTHER QUESTIONS OR CONCERNS? : - CURRENT MEDICATIONS TAKING FLONASE 50 MCG/ACT SUSPENSION 1 SPRAY IN EACH NOSTRIL NASALLY ONCE A DAY NEEDED, NOTES: 05/06 2000 TAKING BLOOD GLUCOSE METER - KIT 1 METER DX:E11.65 TWICE DAILY TAKING BD LANCET ULTRAFINE 33G - MISCELLANEOUS 1 LANCET INTRADERMALLY TWICE DAILY DX:E11.65 TAKING ALCOHOL PREP PAD 70 % PAD 1 TOPICALLY TWICE DAILY DX:E11 TAKING COMPRESSION STOCKINGS 15-20 MMHG DIRECTED DX: I87.2 DAILY TAKING CLONAZEPAM 0.5 MG TABLET 1 TABLET AT BEDTIME ORALLY ONCE A DAY, NOTES: 3-4 DAYS AGO TAKING PRAZOSIN HCL 5 MG CAPSULE 1 CAPSULE AT BEDTIME ORALLY ONCE A DAY, NOTES: 05/06 2200 TAKING BLOOD GLUCOSE TEST STRIP - STRIP 1 STRIP IN VITRO DX:E11.65 TWICE DAILY TAKING HOME STYLE BED RAILS - MISCELLANEOUS DIRECTED [facility] # [id number] USE UNDER THE BED RAILS EVERY NIGHT TO PREVENT FALLING OUT OF BED TAKING QUETIAPINE FUMARATE 100 MG TABLET 1/2 TABLET AT BEDTIME ORALLY ONCE A DAY, NOTES: 05/06 2000 TAKING BUPROPION HCL ER (SR) 150 MG TABLET EXTENDED RELEASE 12 HOUR 1 TABLET ORALLY TWICE A DAY, NOTES: 05/06 2000 TAKING METOPROLOL TARTRATE 100 MG TABLET 1 TABLET WITH FOOD ORALLY TWICE A DAY, NOTES: 05/07 800 TAKING OMEPRAZOLE 20 MG CAPSULE DELAYED RELEASE 1 CAPSULE ORALLY BEFORE BEDTIME, NOTES: 05/06 2000 TAKING LISINOPRIL 20 MG TABLET TAKE ONE TABLET BY MOUTH EVERY DAY , NOTES: 05/06 1300 TAKING ZYRTEC ALLERGY 10 MG TABLET 1 TABLET ORALLY ONCE A DAY NEEDED, NOTES: 05/06 1300 TAKING ATORVASTATIN CALCIUM 80 MG TABLET TAKE 1 TABLET BY MOUTH ONCE A DAY , NOTES: 05/06 1300 TAKING SPIRONOLACTONE 25 MG TABLET 1 TABLET ORALLY ONCE A DAY, NOTES: 05/06 800 TAKING AMLODIPINE BESYLATE 10 MG TABLET 1 TABLET ORALLY ONCE A DAY, NOTES: 05/07 800 TAKING LYRICA 300 MG CAPSULE 1 CAPSULE ORALLY BID, NOTES: 05/06 1300 TAKING METFORMIN HCL 1000 MG TABLET 1 TABLET WITH MEALS ORALLY TWICE DAILY, NOTES: 05/06 2000 TAKING GLIMEPIRIDE 2 MG TABLET 1 TAB BID WITH FOOD ORALLY TWICE DAILY, NOTES: 05/06 2000 TAKING TIZANIDINE HCL 4 MG TABLET 1 TABLET NEEDED ORALLY NEEDED FOR SPASMS AND PAIN BEFORE BEDTIME, NOTES: 05/04 TAKING SOMA 350 MG TABLET 1 TABLET NEEDED ORALLY BID MDD2, NOTES: NONE RECENT NOT-TAKING LOPERAMIDE HCL 2 MG CAPSULE 1 CAPSULE NEEDED ORALLY FOUR TIMES A DAY ONLY FOLLOWING A LOOSE STOOL, NOTES: INSURANCE WON'T COVER NOT-TAKING CAPSAICIN 0.025 % CREAM 1 APPLICATION TO AFFECTED AREA NEEDED EXTERNALLY OB LOWER EXT BILATERAL THREE TIMES A DAY NOT-TAKING STEGLATRO 15 MG TABLET 1 TABLET ORALLY ONCE A DAY NOT-TAKING OZEMPIC (0.25 OR 0.5 MG/DOSE) 2 MG/1.5ML SOLUTION PEN-INJECTOR DIRECTED 0.25 MG INJ SUBCUTANEOUS WEEKLY NOT-TAKING DIFLUCAN 100 MG TABLET 1 TABLET ORALLY DAILY NOT-TAKING KETOCONAZOLE 2 % CREAM 1 APPLICATION EXTERNALLY TO HEAD OF PENIS TWICE A DAY NOT-TAKING SOMA 350 MG TABLET 1 TABLET NEEDED ORALLY FOR SPASMS AND PAIN EVERY 8 HOURS NEEDED MDD3 NOT-TAKING KETOROLAC TROMETHAMINE 10 MG TABLET 1 TABLET WITH FOOD OR MILK NEEDED ORALLY FOR PAIN EVERY 8 HRS MDD3 MEDICATION LIST REVIEWED AND RECONCILED WITH THE PATIENT PAST MEDICAL HISTORY HTN SHORT''S PALSY UNSPECIFIED ESSENTIAL HYPERTENSION NONDEPENDENT TOBACCO USE DISORDER SMOKING MIGRAINE WITHOUT AURA, WITH INTRACTABLE MIGRAINE, SO STATED, WITHOUT MENTION OF STATUS MIGRAINOSUS ALLERGIC CONJUNCTIVITIS HYPERLIPIDEMIA ESSENTIAL HYPERTENSION ASCVD10 (2016)- 11.5% DIEBETIC TYPE 2 EPIDIDYMITIS HEPATITIS C CHRONIC WITH LIVER CIRRHOSIS TREATED WITH 12 WEEKS MAV[facility]RET HEP C IS CURED HYPERLIPIDEMIA CERVICALGIA PTSD SACROILIITIS HERPESVIRAL INFECTION OF UROGENITAL SYSTEM BALANITIS LUMBAR SPONDYLOSIS PIRIFORMIS MUSCLE PAIN GALLLBLADDER REMOVES NECK PAIN ALLERGIES ASPIR-81: VOMITING - SIDE EFFECTS SURGICAL HISTORY RIGHT EPIDIDYMAL CYST REMOVAL 07/08/[address] ROBIN 08/2016 LEFT INGUINAL HERNIA 02/10/2017 PIRIFORMIS MUSCLE INJECTION -RIGHT-[facility] 12/28/2016 BILATIERAL INGUINAL HERNIA REPAIR 02/10/17 RIGHT HERNIA REPAIR 06/2017 BILAT EYE LID LIFTS 10/2019 CHOLECYSTECTOMY 03/17/2020 FAMILY HISTORY FATHER: , DIAGNOSED WITH HYPERTENSION MOTHER: , DIABETES SIBLINGS: ALIVE DAUGHTER(S): ALIVE 1 BROTHER(S) , 2 SISTER(S) . 2DAUGHTER(S) . SOCIAL HISTORY GENERAL: TOBACCO USE ARE YOU A:FORMER SMOKER HOW LONG HAS IT BEEN SINCE YOU LAST SMOKED?1-5 YEARS SMOKING CESSATION INFORMATION GIVEN04/01/2019 LATEX QUESTIONNAIRE LATEX ALLERGY : HAVE YOU EVER DEVELOPED ANY TYPE OF REACTION AFTER HANDLING LATEX PRODUCTS SUCH RUBBER GLOVES, CONDOMS, DIAPHRAGMS, BALLOONS, SOCKS, OR UNDERWEAR?NO LATEX ALLERGY : HAVE YOU EVER DEVELOPED ANY TYPE OF REACTION DURING OR AFTER DENTAL APPOINTMENT, VAGINAL/RECTAL EXAMINATION, SURGICAL PROCEDURE, OR ANY OTHER EXPOSURE?NO LATEX RISK : HAVE YOU EVER HAD ANY DIFFICULTY BREATHING OR HIVES AFTER EATING OR HANDLING ANY FRUITS, OR VEGETABLES; SUCH KIWI, BANANAS, STONE FRUITS, OR CHESTNUTSNO LATEX RISK : DO YOU HAVE A PREVIOUS PERSONAL HISTORY OF MORE THAN NINE SURGERIES, SPINA BIFIDA, OR REPEATED CATHERIZATIONS? NO LATEX RISK : ARE YOU FREQUENTLY EXPOSED TO LATEX PRODUCTS IN YOUR OCCUPATION?NO DATE ASKED : 05/07/2020 BMI CARE GOAL FOLLOW-UP ABOVE NORMAL BMI FOLLOW-UPLIFESTYLE EDUCATION REGARDING DIET ALCOHOL SCREENING DID YOU HAVE A DRINK CONTAINING ALCOHOL IN THE PAST YEAR?NO POINTS0 INTERPRETATIONNEGATIVE RECREATIONAL DRUG USE DRUG USE?NO CAFFEINE CAFFEINE USE?YES SEXUAL HX HAD SEX IN THE LAST 12 MONTHS (VAGINAL, ORAL, OR ANAL)?YES WITHWOMEN ONLY PREVENTION STRATEGIES DISCUSSED:CONDOMS USE PROTECTION?NO HAVE YOU EVER HAD AN STD?NO HIV / HEP-C SCREENING HIV TEST OFFERED TO PATIENT:YES DATE OFFERED:10/06/2016 TEST ACCEPTED:NO HEP-C TEST OFFERED TO PATIENT:YES DATE OFFERED:10/06/2016 REASON:PATIENT DECLINED TEST ACCEPTED:NO REASON:PATIENT DECLINED RESTORATIONISM [id number] PENTECOSTAL LANGUAGE ROMANSH. EDUCATION LEVEL OF EDUCATION:NOT FINISHED COLLEGE LEARNING BARRIERS / SPECIAL NEEDS CHANGE FROM LAST VISIT?YES BARRIERS TO LEARNING?NO HEARING IMPAIRED?NO VISION IMPAIRED?YES :CORRECTIVE LENSES COGNITIVELY IMPAIRED?NO READINESS TO LEARN?YES LEARNING PREFERENCES?NO LEARNING CAPABILITIES PRESENT?YES EMOTIONAL BARRIERS?NO SPECIAL DEVICES?YES :[place] LEASING EXAMINER NEEDED?NO DOMESTIC VIOLENCE DO YOU FEEL SAFE IN YOUR ENVIRONMENT?YES OCCUPATION: NOT WORKING, UNABLE APPLYING FOR SSDI. DIET: REGULAR. EXERCISE: NO REGULAR EXERCISE. MARITAL STATUS: SINGLE. OTHERS AT HOME: GIRLFRIEND. TODAY'S VISIT 11/01/2019, PATIENT DESCRIBES PAIN : BURNING, IT COMES AND GOES, SHARP, FROM 0-10, WHAT LEVEL IS YOUR PAIN TODAY? 4, PRECIPITATING FACTORS BENDING HEAD DOWN, ALLEVIATING FACTORS RESTING, IMPACT ON FUNCTION YES. PAIN CLINIC PFS, CLERGY, PUBLIC HEALTH REFERRALS PFS REFERRAL NEEDED?NO CLERGY REFERRAL NEEDED?NO PUBLIC HEALTH REFERRAL NEEDED?NO HAS THE PATIENT BEEN EDUCATED REGARDING HIS/HER PLAN OF CARE?YES HAS THE PATIENT BEEN EDUCATED REGARDING PAIN, THE RISK FOR PAIN, THE IMPORTANCE OF EFFECTIVE PAIN MANAGEMENT, AND THE PAIN ASSESSMENT PROCESS?YES ADVANCE DIRECTIVE ADVANCE DIRECTIVE DISCUSSED WITH PATIENT:YES 05/07/2020 PT STATES HCP IS TANNER PERERA - DAUGHTER [phone] HOSPITALIZATION/MAJOR DIAGNOSTIC PROCEDURE HYPOTENSIVE AND HYPERGLYCEMIA 08/2018 FACIAL DROOPING, POSSIBLE STROKE/SHORT'S PALSY 02/2019 SURGERIES RELATED VITAL SIGNS WT 192 LBS, HT 66 IN, BMI 30.99 INDEX, BP 124/79 MM HG, HR 57 /MIN, RR 18 /MIN, TEMP 96.1 F, OXYGEN SAT % 97%, SAFE IN ENV? (Y/N) Y, NA INITIALS SC 13:40, REVIEWED BY: Gayathri DENNEY RN 1428. EXAMINATION GENERAL EXAMINATION: THE PATIENT IS ALERT, ORIENTED TIMES THREE AND COOPERATIVE. HEART SHOWS REGULAR RHYTHM, NO MURMURS AND NO GALLOPS. LUNGS ARE CLEAR TO AUSCULTATION. ASSESSMENTS MYALGIA - M79.1 (PRIMARY) TREATMENT MYALGIA MEDICATION: VALIUM TAB 10MG ORALLY (DIAZEPAM)PRAVEEN DENNEY 05/07/2020 2:34:46 PM > LOT #[id number] EXP. 01/06 GREGORYCHENG Sebastian 05/07/2020 2:36:38 PM > VERIFIED PRAVEEN DENNEY 05/07/2020 2:56:22 PM > ADMINISTERED MEDICATION: OXYCODONE HCL TAB 10MG ORALLYGREGORYCHENG Sebastian 05/07/2020 2:36:19 PM > LOT: [id number], EXP: 07/2021 VERIFIED JUMANAPRAVEEN 05/07/2020 2:56:43 PM > ADMINISTERD PROCEDURES PAIN NURSING RECORD PRE-PROCEDURE IV SITE N/A, PRE-PROCEDURE ORAL MEDICATIONS SEE MEDICATION ORDERS PROCEDURE IN ROOM 1340, PHYSICIAN IN ROOM 1534, START 1539, FINISH 1547, PHYSICIAN OUT OF ROOM 1547, OUT OF ROOM 1600, STEROID KENALOG, O2 N/A, ECG N/A, PATIENT SHIELDED NO, SAFETY STRAP NO, PREP ALCOHOL BY DR. MAYER, IV INFUSED N/A, DRESSING TEGADERM BY Gayathri DENNEY RN LOC: PRAVEEN DENNEY 05/07/2020 3:21:12 PM > 1. ALERT, ORIENTED RESP: PRAVEEN DENNEY 05/07/2020 3:21:15 PM > 1. REGULAR, NO DYSPNEA COLOR: PRAVEEN DENNEY 05/07/2020 3:21:18 PM > 1. PINK SKIN: PRAVEEN DENNEY 05/07/2020 3:21:22 PM > 1. WARM, DRY POSITION: PRAVEEN DENNEY 05/07/2020 3:21:25 PM > 4. OTHER-SITTING VITALS: PRAVEEN DENNEY 05/07/2020 3:58:01 PM > 140/83,57,18,96%-DISCHARGED DISCHARGE: POST PAIN 5, DRESSING SITE DRY AND INTACT, IV N/A, GAIT STEADY, TEACHING COMPLETED, PATIENT ACKNOWLEDGES UNDERSTANDING YES 1555 PRINTED POST-PROCEDURE AND COVID SYMPTOM MONITORING INSTRUCTIONS GIVEN TO AND REVIEWED WITH PT. AND HE VERBALIZED UNDERSTANDING.AD, PATIENT DISCHARGED AT 1600 PN TRIGGER POINT INJECTION WITH STEROIDS PRE PROCEDURE DIAGNOSIS 1. MYALGIA 2. PAIN AT BILATERAL NECK AREA POST PROCEDURE DIAGNOSIS 1. MYALGIA 2. PAIN AT BILATERAL NECK AREA PROCEDURE TRIGGER POINT INJECTION AT BILATERAL NECK AREA SURGEON DR. KIARA MAYER MANAGER PLAY NONE ANESTHESIA LOCAL PRE PROCEDURE NOTE THE PATIENT HAS A HISTORY OF CHRONIC PAIN AT THE RIGHT AND LEFT NECK AREA. I EVALUATED THE PATIENT AND REVIEWED THE CHART. THERE IS EVIDENCE OF BANDS OF TISSUE WITH RESTRICTION OF MOVEMENT AND PRESENCE OF TRIGGER POINT AT THE RIGHT AND LEFT NECK AREA. I WENT OVER THE RISKS, ALTERNATIVES, AND BENEFITS ASSOCIATED WITH THIS PROCEDURE. I DISCUSSED THAT THE USE OF STEROIDS MAY CONTRIBUTE TO IMMUNOSUPPRESSION OF THE PATIENT'S BODY AGAINST INFECTIONS SUCH COVID-19. THE PATIENT IS AWARE OF THE POTENTIAL COMPLICATIONS ASSOCIATED WITH THIS VIRUS, INCLUDING, BUT NOT LIMITED TO, . THE PATIENT WOULD LIKE TO PROCEED AND GIVE CONSENT TO PERFORMED THE PROCEDURE. THE PATIENT DENIES UNEXPLAINABLE WEIGHT LOSS, FEVER, CHILLS, OR NEW CHANGES IN URINARY OR BOWEL CONTROL. THE PATIENT IS COVID-19 NEGATIVE DESCRIPTION OF PROCEDURE THE PATIENT WAS BROUGHT TO THE PROCEDURE ROOM AND PLACED IN THE SITTING POSITION. THE AREA WAS CLEANED WITH ALCOHOL. THE PROCEDURE WAS DONE USING ASEPTIC STERILE TECHNIQUE. A TIMEOUT WAS PERFORMED WHERE LATERALITY AND THE SITE OF THE PROCEDURE WERE CHECKED AND CONFIRMED WITH EVERYONE IN THE ROOM. USING A 25-GAUGE NEEDLE, TRIGGER POINTS WERE INJECTED AT THE RIGHT AND LEFT LOWER BACK AREA WITH A TOTAL OF 40 ML OF BUPIVACAINE 0.25% AND KENALOG 40 MG. THE MEDICATIONS WERE VERIFIED WITH THE NURSE. THERE WAS NO EVIDENCE OF BLOOD OR PARESTHESIA DURING THE PROCEDURE. THE PATIENT WAS SENT TO THE RECOVERY ROOM. THE PATIENT WAS MOVING THE EXTREMITIES AND DOING WELL. THERE WERE NO COMPLICATIONS DURING THE PROCEDURE. ESTIMATED BLOOD LOSS WAS LESS THAN 5 ML POST PROCEDURE NOTE THE PROCEDURE DONE WAS DISCUSSED WITH THE PATIENT. THE PATIENT WILL BE SEEN IN A FOLLOW UP IN THE NEXT FEW WEEKS. I AM LOOKING FOR LONG LASTING PAIN RELIEF FOR THE PATIENT WITH THIS INTERVENTION. INSTRUCTIONS WERE GIVEN, QUESTIONS WERE ANSWERED, AND THE PATIENT EXPRESSED UNDERSTANDING AND AGREES WITH THE PLAN. I, CINDY PLATT, DOCUMENTED THE ABOVE INFORMATION ACTING A SCRIBE FOR DR. MAYER. I HAVE REVIEWED THE ABOVE DOCUMENT, WRITTEN BY CINDY PLATT, [employer], AND I VERIFY THAT IT IS ACCURATE PROCEDURE CODES FA211 ESTABILISHED PATIENT [facility] CHARGE 10630 INJ TRIGGER POINT 06/20 [facility] DISPOSITION & COMMUNICATION FOLLOW UP FOLLOW UP WITH CONTRACT ADMINISTRATOR (REASON: POST TPI BILATERAL NECK) ELECTRONICALLY SIGNED BY KIARA MAYER MD, MD ON 05/08/2020 AT 01:02 PM EST DISCLAIMER : THIS IS A VISIT SUMMARY EXTRACTED FROM THE [employer] CHART. IT IS NOT A COPY OF THE [employer] PROGRESS NOTE. INESD
== END ==
LOC: M PAIN 13:30
PROVIDERS: ATTEND Anesthesiology
DX: M79.18 Myalgia, other site (principal); I10 Essential (primary) hypertension; G43.009 Migraine without aura, not intractable, without status migrainosus; E78.5 Hyperlipidemia, unspecified; E11.9 Type 2 diabetes mellitus without complications; F43.10 Post-traumatic stress disorder, unspecified; Z87.891 Personal history of nicotine dependence; Z79.84 Long term (current) use of oral hypoglycemic drugs; Z79.899 Other long term (current) drug therapy
CPT/HCPCS: 20552; G0463; J3301

== ENCOUNTER → 2020-05-21 | Outpatient (CLI) | payer OTHER ==
[~2020-05-21] MED LIST changes: -BUPIVACAINE HCL 0.25% 10ML VIAL As Ordered ONE; -BUPIVACAINE HCL 0.25% 30ML VIAL As Ordered ONE; +METHACHOLINE KIT (J7674) INH ONE; -TRIAMCINOLONE ACETONIDE SUSP 40 MG/ML VIAL (J3301) As Ordered ONE; -diazePAM 5 MG TAB As Ordered ONE; -oxyCODONE 5MG TAB As Ordered ONE
--- NOTE | 2020-05-21 13:35 | PFTRPT ---
Height: 67.00 Inches Weight: 190.00 Lbs BSA: 1.98 Diagnosis: R94.2 DATE: 05/21/2020 ORDERING PHYSICIAN: Dr. Wilson Pre and post bronchodilator studies have excellent technical quality. Forced vital capacity is reduced. FEV1 is in proportion. Obstructive index is therefore normal. Expiratory limit of the flow-volume loop suggests suboptimal effort and performance of the required maneuver. Repeat measurements made after the administration of inhaled bronchodilator do suggest significant response but again effort plays a role in data acquisition. Slow vital capacity is generally in proportion. The patient was unable to perform the required plethysmography maneuvers. Diffusing capacity is normal. Hemoglobin is acceptable at 14.5. IMPRESSION: Suboptimal study on the basis of patient performance. Cannot rule out a reversible ventilatory defect. Clinical correlation with the above will be necessary. MTDD
== END ==
LOC: M CARPUL 12:54
PROVIDERS: ATTEND Internal Medicine Pulmonary Disease
DX: R94.2 Abnormal results of pulmonary function studies (principal)

== ENCOUNTER → 2020-05-25 | Outpatient (CLI) | payer OTHER ==
[~2020-05-25] MED LIST changes: -METHACHOLINE KIT (J7674) INH ONE
--- NOTE | 2020-05-30 02:52 | ECWPNPC ---
PATIENT NAME: ALLYN PERERA : 1960 GENDER: MALE VISIT DATE: 05/25/2020 DISCHARGE DATE: 05/25/20 1213 VISIT LOCKED DATE TIME: PHYSICIAN: ALFA CARRASCO PHYSICIAN PAGER NO: ACTIVE RESOURCE: ALFA CARRASCO REASON FOR APPOINTMENT 1. POST HISTORY OF PRESENT ILLNESS DEPRESSION SCREENING: PHQ-9 LITTLE INTEREST OR PLEASURE IN DOING THINGSSEVERAL DAYS FEELING DOWN, DEPRESSED, OR HOPELESSSEVERAL DAYS TROUBLE FALLING OR STAYING ASLEEP, OR SLEEPING TOO MUCHNEARLY EVERY DAY FEELING TIRED OR HAVING LITTLE ENERGYNEARLY EVERY DAY POOR APPETITE OR OVEREATING NOT AT ALL FEELING BAD ABOUT YOURSELF-OR THAT YOU ARE A FAILURE OR HAVE LET YOURSELF OR YOUR FAMILY DOWN NOT AT ALL TROUBLE CONCENTRATING ON THINGS, SUCH READING THE NEWSPAPER OR WATCHING TELEVISION NOT AT ALL MOVING OR SPEAKING SO SLOWLY THAT OTHER PEOPLE COULD HAVE NOTICED. OR THE OPPOSITE- BEING SO FIDGETY OR RESTLESS THAT YOU HAVE BEEN MOVING AROUND A LOT MORE THAN USUALSEVERAL DAYS THOUGHTS THAT YOU WOULD BE BETTER OFF , OR OF HURTING YOURSELF IN SOME WAY?NOT AT ALL TOTAL SCORE:9 INTERPRETATIONMILD DEPRESSION PHQ-2 (2015 EDITION) LITTLE INTEREST OR PLEASURE IN DOING THINGS?SEVERAL DAYS FEELING DOWN, DEPRESSED, OR HOPELESS?SEVERAL DAYS TOTAL SCORE2 GENERAL: HERE FOR POST PROCEDURE FOLLOW-UP. HAD TRIGGER POINTS BILATERAL NECK ON 05/07/2020. DOING WELL WITH NECK AND HEAD PAIN SINCE PROCEDURE. OVER THE PAST 2 WEEKS LOWER BACK HAS BEEN PAINFUL. PAIN IS AGGRAVATED BY WALKING OR PROLONGED SITTING. HAS RESPONDED WELL TO SACROILIAC JOINT BLOCKS IN THE PAST. -. FALL RISK SCREENING: SCREENING :TWO OR MORE FALLS WITH INJURY IN THE PAST YEAR PAIN SCREENING: PATIENT HAS A COMPLAINT OF ACUTE OR CHRONIC PAIN :YES LOCATION OF PAIN:LOW BACK RIGHT LOW BACK AND BUTTOCK INTENSITY OF PAIN (SCALE OF 1 TO 10): 2-3 WHAT DOES YOUR PAIN FEEL LIKE:STABBING DURATION:INTERMITTENT PAIN IS INCREASED BY:ACTIVITIES LIFTING PAIN IS DECREASED BY:USE OF PAIN MEDICATIONS NURSING NOTE: -. PAIN CENTER INTAKE QUESTIONS: DO YOU HAVE A HISTORY OF MRSA? :NO DO YOU TAKE A BLOOD THINNERS? :NO DO YOU HAVE ANY BLEEDING DISORDERS? :NO ANY NEW NUMBNESS OR WEAKNESS IN YOUR LEGS OR ARMS? :NO ANY PACEMAKER,DEFIBRILLATOR, OR DORSAL COLUMN STIMULATOR? :NO DO YOU HAVE ANY RASHES OR OPEN SORES? :NO ARE YOU ALLERGIC TO IV DYE? :NO ARE YOU DIABETIC? :YES ANY NEW PROBLEMS WITH YOUR MEDICATIONS? :NO HAVE YOU RECEIVED A VACCINE IN THE PAST 30 DAYS? :NO DO YOU PLAN TO RECEIVE A VACCINE IN THE NEXT 21 DAYS? :NO DO YOU NEED ANY PRESCRIPTION? :NO DO YOU TAKE ANY IMMUNOSUPPRESSIVE MEDICATIONS? :NO IS THERE A CHANCE YOU COULD BE ? :NO ARE YOU BREAST FEEDING? :NO CURRENT MEDICATIONS TAKING FLONASE 50 MCG/ACT SUSPENSION 1 SPRAY IN EACH NOSTRIL NASALLY ONCE A DAY NEEDED TAKING BLOOD GLUCOSE METER - KIT 1 METER DX:E11. TWICE DAILY TAKING BD LANCET ULTRAFINE 33G - MISCELLANEOUS 1 LANCET INTRADERMALLY TWICE DAILY DX:E11. TAKING ALCOHOL PREP PAD 70 % PAD 1 TOPICALLY TWICE DAILY DX:E11. TAKING COMPRESSION STOCKINGS 15-20 MMHG DIRECTED DX: I87.2 DAILY TAKING CLONAZEPAM 0.5 MG TABLET 1 TABLET AT BEDTIME ORALLY ONCE A DAY TAKING PRAZOSIN HCL 5 MG CAPSULE 1 CAPSULE AT BEDTIME ORALLY ONCE A DAY TAKING BLOOD GLUCOSE TEST STRIP - STRIP 1 STRIP IN VITRO DX:E11. TWICE DAILY TAKING HOME STYLE BED RAILS - MISCELLANEOUS DIRECTED [facility] # [id number] USE UNDER THE BED RAILS EVERY NIGHT TO PREVENT FALLING OUT OF BED TAKING QUETIAPINE FUMARATE 100 MG TABLET 1/2 TABLET AT BEDTIME ORALLY ONCE A DAY TAKING BUPROPION HCL ER (SR) 150 MG TABLET EXTENDED RELEASE 12 HOUR 1 TABLET ORALLY TWICE A DAY TAKING METOPROLOL TARTRATE 100 MG TABLET 1 TABLET WITH FOOD ORALLY TWICE A DAY TAKING LISINOPRIL 20 MG TABLET TAKE ONE TABLET BY MOUTH EVERY DAY TAKING ZYRTEC ALLERGY 10 MG TABLET 1 TABLET ORALLY ONCE A DAY TAKING SPIRONOLACTONE 25 MG TABLET 1 TABLET ORALLY ONCE A DAY TAKING AMLODIPINE BESYLATE 10 MG TABLET 1 TABLET ORALLY ONCE A DAY TAKING LYRICA 300 MG CAPSULE 1 CAPSULE ORALLY BID TAKING METFORMIN HCL 1000 MG TABLET 1 TABLET WITH MEALS ORALLY TWICE DAILY TAKING GLIMEPIRIDE 2 MG TABLET 1 TAB BID WITH FOOD ORALLY TWICE DAILY TAKING TIZANIDINE HCL 4 MG TABLET 1 TABLET NEEDED ORALLY NEEDED FOR SPASMS AND PAIN BEFORE BEDTIME TAKING ATORVASTATIN CALCIUM 80 MG TABLET TAKE 1 TABLET BY MOUTH ONCE A DAY TAKING OMEPRAZOLE 20 MG CAPSULE DELAYED RELEASE 1 CAPSULE ORALLY BEFORE BEDTIME NOT-TAKING SOMA 350 MG TABLET 1 TABLET NEEDED ORALLY BID MDD2 NOT-TAKING LOPERAMIDE HCL 2 MG CAPSULE 1 CAPSULE NEEDED ORALLY FOUR TIMES A DAY ONLY FOLLOWING A LOOSE STOOL, NOTES: INSURANCE WON'T COVER NOT-TAKING CAPSAICIN 0.025 % CREAM 1 APPLICATION TO AFFECTED AREA NEEDED EXTERNALLY OB LOWER EXT BILATERAL THREE TIMES A DAY NOT-TAKING STEGLATRO 15 MG TABLET 1 TABLET ORALLY ONCE A DAY NOT-TAKING OZEMPIC (0.25 OR 0.5 MG/DOSE) 2 MG/1.5ML SOLUTION PEN-INJECTOR DIRECTED 0.25 MG INJ SUBCUTANEOUS WEEKLY NOT-TAKING DIFLUCAN 100 MG TABLET 1 TABLET ORALLY DAILY NOT-TAKING KETOCONAZOLE 2 % CREAM 1 APPLICATION EXTERNALLY TO HEAD OF PENIS TWICE A DAY NOT-TAKING SOMA 350 MG TABLET 1 TABLET NEEDED ORALLY FOR SPASMS AND PAIN EVERY 8 HOURS NEEDED MDD3 NOT-TAKING KETOROLAC TROMETHAMINE 10 MG TABLET 1 TABLET WITH FOOD OR MILK NEEDED ORALLY FOR PAIN EVERY 8 HRS MDD3 MEDICATION LIST REVIEWED AND RECONCILED WITH THE PATIENT PAST MEDICAL HISTORY HTN SHORT''S PALSY UNSPECIFIED ESSENTIAL HYPERTENSION NONDEPENDENT TOBACCO USE DISORDER SMOKING MIGRAINE WITHOUT AURA, WITH INTRACTABLE MIGRAINE, SO STATED, WITHOUT MENTION OF STATUS MIGRAINOSUS ALLERGIC CONJUNCTIVITIS HYPERLIPIDEMIA ESSENTIAL HYPERTENSION ASCVD10 (2016)- 11.5% DIEBETIC TYPE 2 EPIDIDYMITIS HEPATITIS C CHRONIC WITH LIVER CIRRHOSIS TREATED WITH 12 WEEKS MAVYRET HEP C IS CURED HYPERLIPIDEMIA CERVICALGIA PTSD SACROILIITIS HERPESVIRAL INFECTION OF UROGENITAL SYSTEM BALANITIS LUMBAR SPONDYLOSIS PIRIFORMIS MUSCLE PAIN GALLLBLADDER REMOVES NECK PAIN ALLERGIES ASPIR-81: VOMITING - SIDE EFFECTS SURGICAL HISTORY RIGHT EPIDIDYMAL CYST REMOVAL 07/08/[address] ROBIN 08/2016 LEFT INGUINAL HERNIA 02/10/2017 PIRIFORMIS MUSCLE INJECTION -RIGHT-[facility] 12/28/2016 BILATIERAL INGUINAL HERNIA REPAIR 02/10/17 RIGHT HERNIA REPAIR 06/2017 BILAT EYE LID LIFTS 10/2019 CHOLECYSTECTOMY 03/17/2020 FAMILY HISTORY FATHER: , DIAGNOSED WITH HYPERTENSION MOTHER: , DIABETES SIBLINGS: ALIVE, ASTHMA IN 1 BROTHER AND 1 SISITER DAUGHTER(S): ALIVE, DAUGHTERS NEED INHALERS DURING WEATHER CHANGES 1 BROTHER(S) , 2 SISTER(S) . 2DAUGHTER(S) . SOCIAL HISTORY GENERAL: TOBACCO USE ARE YOU A:FORMER SMOKER HOW LONG HAS IT BEEN SINCE YOU LAST SMOKED?1-5 YEARS SMOKING CESSATION INFORMATION GIVEN04/01/2019 LATEX QUESTIONNAIRE LATEX ALLERGY : HAVE YOU EVER DEVELOPED ANY TYPE OF REACTION AFTER HANDLING LATEX PRODUCTS SUCH RUBBER GLOVES, CONDOMS, DIAPHRAGMS, BALLOONS, SOCKS, OR UNDERWEAR?NO LATEX ALLERGY : HAVE YOU EVER DEVELOPED ANY TYPE OF REACTION DURING OR AFTER DENTAL APPOINTMENT, VAGINAL/RECTAL EXAMINATION, SURGICAL PROCEDURE, OR ANY OTHER EXPOSURE?NO DATE ASKED : 05/07/2020 LATEX RISK : HAVE YOU EVER HAD ANY DIFFICULTY BREATHING OR HIVES AFTER EATING OR HANDLING ANY FRUITS, OR VEGETABLES; SUCH KIWI, BANANAS, STONE FRUITS, OR CHESTNUTSNO LATEX RISK : DO YOU HAVE A PREVIOUS PERSONAL HISTORY OF MORE THAN NINE SURGERIES, SPINA BIFIDA, OR REPEATED CATHERIZATIONS? NO LATEX RISK : ARE YOU FREQUENTLY EXPOSED TO LATEX PRODUCTS IN YOUR OCCUPATION?NO BMI CARE GOAL FOLLOW-UP ABOVE NORMAL BMI FOLLOW-UPLIFESTYLE EDUCATION REGARDING DIET ALCOHOL SCREENING DID YOU HAVE A DRINK CONTAINING ALCOHOL IN THE PAST YEAR?NO POINTS0 INTERPRETATIONNEGATIVE RECREATIONAL DRUG USE DRUG USE?NO CAFFEINE CAFFEINE USE?YES HOW OFTEN AND HOW MUCH? 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 DIET: REGULAR. EXERCISE: NO REGULAR EXERCISE. MARITAL STATUS: SINGLE. OTHERS AT HOME: GIRLFRIEND. TODAY'S VISIT 11/01/2019, PATIENT DESCRIBES PAIN : BURNING, IT COMES AND GOES, SHARP, FROM 0-10, WHAT LEVEL IS YOUR PAIN TODAY? 4, PRECIPITATING FACTORS BENDING HEAD DOWN, ALLEVIATING FACTORS RESTING, IMPACT ON FUNCTION YES. PAIN CLINIC PFS, CLERGY, PUBLIC HEALTH REFERRALS PFS REFERRAL NEEDED?NO CLERGY REFERRAL NEEDED?NO PUBLIC HEALTH REFERRAL NEEDED?NO HAS THE PATIENT BEEN EDUCATED REGARDING HIS/HER PLAN OF CARE?YES HAS THE PATIENT BEEN EDUCATED REGARDING PAIN, THE RISK FOR PAIN, THE IMPORTANCE OF EFFECTIVE PAIN MANAGEMENT, AND THE PAIN ASSESSMENT PROCESS?YES ADVANCE DIRECTIVE ADVANCE DIRECTIVE DISCUSSED WITH PATIENT:YES 05/07/2020 PT STATES HCP IS TANNER PERERA - DAUGHTER [phone] HOSPITALIZATION/MAJOR DIAGNOSTIC PROCEDURE HYPOTENSIVE AND HYPERGLYCEMIA 08/2018 FACIAL DROOPING, POSSIBLE STROKE/SHORT'S PALSY 02/2019 SURGERIES RELATED REVIEW OF SYSTEMS CONSTITUTIONAL: ANY RECENT FEVER NO . CHILLS NO . WEIGHT CHANGE OF UNKNOWN REASONS NO . GASTROENTEROLOGY: NEW UNEXPLAINABLE CHANGES IN BOWEL CONTROL NO . CONSTIPATION NO . GENITOURINARY: ANY NEW CHANGE IN BLADDER CONTROL? NO . NEUROLOGY: NEW ONSET DIZZINESS OR NEUROLOGICAL CHANGES NOT MENTIONED NO . NEW NUMBNESS OR PAIN PATTERNS NOT MENTIONED AND PERTINENT TO TODAY'S VISIT NO . CARDIOLOGY: NEW CHEST PRESSURE NO . NEW CHEST PAIN NO . RESPIRATORY: UNEXPLAINABLE COUGH NO . NEW SHORTNESS OF BREATH NO . VITAL SIGNS WT 186 LBS, HT 66 IN, BMI 30.99 INDEX, BP 148/85 MM HG, HR 56 /MIN, RR 18 /MIN, TEMP 97.4 F, OXYGEN SAT % 100%, SAFE IN ENV? (Y/N) YES, NA INITIALS WI 11: 1148 REVIEWED. Gurjit JAMES RN. EXAMINATION GENERAL EXAMINATION: LUNGS:LUNG SOUNDS ARE CLEAR. HEART:HEART RATE REGULAR. MUSCULOSKELETAL:*, MUSCLE STRENGTH TESTING 5/5 BILATERAL LOWER EXTREMITIES.SPECIFIC POINT TENDERNESS OVER BILATERAL SACROILIAC AREA RIGHT GREATER THAN LEFT .. DIAGNOSTIC:MRI L/S SPINE 07-06-16-REVIEWED.. ASSESSMENTS OTHER CHRONIC PAIN - G89.29 (PRIMARY) SACROILIITIS, NOT ELSEWHERE CLASSIFIED - M46.1 TREATMENT OTHER CHRONIC PAIN START IBUPROFEN TABLET, 600 MG, 1 TABLET WITH FOOD OR MILK NEEDED, ORALLY, Q8H PRN, 30 DAYS, 45, REFILLS 1 PAIN PROCEDURE LOGDATE OF [id number]/19/20PROCEDURE:TRIGGER POINT INJECTIONS BILATERAL NECKAMOUNT OF PRE SEDATEVALIUM 10 MG, OXYCODONE 10 MGRESULT:MARKED REDUCTION IN NECK AND HEADACHE PAIN CONTINUES TODAY NOTES: BILATERAL SACROILIAC JOINT BLOCK PRE PROCEDURE INSTRUCTIONS REVIEWED WITH PT. PT ABLE TO TEACH BACK INSTRUCTIONS ACCURATELY. DISCUSSED NEW MEDICATION IBUPROFEN. VERBALIZED UNDERSTANDING OF ITS USE. PROCEDURE CODES [id number] ESTABILISHED PATIENT [facility] CHARGE DISPOSITION & COMMUNICATION FOLLOW UP POST PROCEDURE (REASON: BILATERAL SACROILIAC JOINT BLOCK) ELECTRONICALLY SIGNED BY BARBARA HEARD ON 05/29/2020 AT 02:49 PM EST DISCLAIMER : THIS IS A VISIT SUMMARY EXTRACTED FROM THE [employer] CHART. IT IS NOT A COPY OF THE [employer] PROGRESS NOTE. DARLIN
== END ==
LOC: M PAIN 11:00
PROVIDERS: ATTEND Nurse Practitioner Family
DX: M46.1 Sacroiliitis, not elsewhere classified (principal); G89.29 Other chronic pain; E11.9 Type 2 diabetes mellitus without complications; G43.909 Migraine, unspecified, not intractable, without status migrainosus; Z86.59 Personal history of other mental and behavioral disorders; Z87.891 Personal history of nicotine dependence; Z88.6 Allergy status to analgesic agent; Z79.84 Long term (current) use of oral hypoglycemic drugs; Z79.899 Other long term (current) drug therapy

== ENCOUNTER → 2020-06-18 | Outpatient (CLI) | payer OTHER ==
[2020-06-18 17:15] LABS: BLOOD UREA NITROGEN 22 MG/DL (7-18); CALCIUM LEVEL 9.6 MG/DL (8.8-10.2); CARBON DIOXIDE LEVEL 26 MEQ/L (21-32); CHLORIDE LEVEL 108 MEQ/L (98-107); CREATININE FOR GFR 1.01 MG/DL (0.70-1.30); GLOMERULAR FILTRATION RATE > 60.0 (>49); GLUCOSE, FASTING 86 MG/DL (70-100); POTASSIUM SERUM 4.6 MEQ/L (3.5-5.1); SODIUM LEVEL 141 MEQ/L (136-145)
[2020-06-18 17:21] LABS: HEMOGLOBIN A1c 5.7 %
== END ==
LOC: M LAB 16:13
PROVIDERS: ATTEND Family Medicine
DX: K75.81 Nonalcoholic steatohepatitis (NASH) (principal)

== ENCOUNTER → 2020-07-01 | Outpatient (CLI) | payer OTHER | LOC: M LABSMTC 11:26 | PROVIDERS: ATTEND Anesthesiology | DX: Z20.822 Contact with and (suspected) exposure to COVID-19 (principal) ==

== ENCOUNTER → 2020-07-06 | Outpatient (CLI) | payer OTHER ==
[~2020-07-06] MED LIST changes: +BUPIVACAINE HCL 0.25% 30ML VIAL As Ordered ONE; +ISOVUE-M 300 61% 15ML VIAL As Ordered ONE; +LIDOCAINE 1% SDV 30ML VIAL As Ordered ONE; -LISI-538 PO; +LISI10TA22 PO; -LISI10TA4 PO; +LISI20TA33 PO; +TRIAMCINOLONE ACETONIDE SUSP 40 MG/ML VIAL (J3301) As Ordered ONE; +diazePAM 5MG TABLET As Ordered ONE; +oxyCODONE 5MG TAB As Ordered ONE
--- NOTE | 2020-07-06 16:30 | REP ---
INDICATION: BILATERAL SACROILIAC JOINT BLOCK. COMPARISON: None. TECHNIQUE: Four views. 30.8 seconds of fluoroscopy time is reported. FINDINGS: A sequence of 4 last image hold fluoroscopically obtained spot radiographs of the SI joints bilaterally document needle position and contrast injection associated with injection procedure. IMPRESSION: Procedural imaging. <Electronically signed by Wilbur Laureano > 07/06/20 [id number]
--- NOTE | 2020-07-09 03:04 | ECWPNPC ---
PATIENT NAME: ALLYN PERERA : 1960 GENDER: MALE VISIT DATE: 07/06/2020 DISCHARGE DATE: 07/06/20 1543 VISIT LOCKED DATE TIME: PHYSICIAN: KIARA MAYER MD PHYSICIAN PAGER NO: ACTIVE RESOURCE: KIARA MAYER MD REASON FOR APPOINTMENT 1. BILATERAL SACROILIAC JOINT BLOCK HISTORY OF PRESENT ILLNESS GENERAL: - -. FALL RISK SCREENING: SCREENING :TWO OR MORE FALLS WITHOUT INJURY IN THE PAST YEAR PATIENT STATES MULTIPLE FALLS WITHOUT INJURY PAIN SCREENING: PATIENT HAS A COMPLAINT OF ACUTE OR CHRONIC PAIN :YES LOCATION OF PAIN:LOW BACK, LEFT HIP, RIGHT HIP INTENSITY OF PAIN (SCALE OF 1 TO 10):4 AVERAGE PAIN LEVEL 3-6/10 WHAT DOES YOUR PAIN FEEL LIKE:BURNING, INTERMITTENT, SHARP, TENDER DURATION:INTERMITTENT MORE CONTINUOUS THAN INTERMITTENT PAIN IS INCREASED BY:ACTIVITIES, PROLONGED STANDING PAIN IS DECREASED BY:OTHERS INJECTIONS TREATMENT/MEDICATIONS USED TO MANAGE PAIN:OTC PAIN RELIEVERS NURSING NOTE: - -. PAIN CENTER INTAKE QUESTIONS: DO YOU HAVE A HISTORY OF MRSA? :NO DO YOU TAKE A BLOOD THINNERS? :NO DO YOU HAVE ANY BLEEDING DISORDERS? :NO ANY NEW NUMBNESS OR WEAKNESS IN YOUR LEGS OR ARMS? :NO ANY PACEMAKER,DEFIBRILLATOR, OR DORSAL COLUMN STIMULATOR? :NO DO YOU HAVE ANY RASHES OR OPEN SORES? :NO ARE YOU ALLERGIC TO IV DYE? :NO ARE YOU DIABETIC? :YES FSBS THIS AM WAS 124 ANY NEW PROBLEMS WITH YOUR MEDICATIONS? :NO HAVE YOU RECEIVED A VACCINE IN THE PAST 30 DAYS? :NO DO YOU PLAN TO RECEIVE A VACCINE IN THE NEXT 21 DAYS? :NO DO YOU TAKE ANY IMMUNOSUPPRESSIVE MEDICATIONS? :NO ANY HISTORY OF SEIZURES? :NO ANY HISTORY OF CARDIAC ISSUES OR EVENTS? :NO DO YOU HAVE SLEEP APNEA? :NO ANY RECENT HEAD INJURY? :NO DO YOU HAVE ANY NEW INFECTIONS? :NO IS THERE A CHANCE YOU COULD BE ? :NO ARE YOU BREAST FEEDING? :NO WHEN DID YOU LAST EAT? : [id number] WHEN DID YOU LAST DRINK? : 07-06-2020 08 WHAT DID YOU LAST DRINK? : WATER NAME OF PERSON DRIVING YOU HOME? : MARVIN KIRBY ,SO DO YOU HAVE ANY OTHER QUESTIONS OR CONCERNS? : - CURRENT MEDICATIONS TAKING FLONASE 50 MCG/ACT SUSPENSION 1 SPRAY IN EACH NOSTRIL NASALLY ONCE A DAY NEEDED TAKING BLOOD GLUCOSE METER - KIT 1 METER DX:E11 TWICE DAILY TAKING BD LANCET ULTRAFINE 33G - MISCELLANEOUS 1 LANCET INTRADERMALLY TWICE DAILY DX: TAKING ALCOHOL PREP PAD 70 % PAD 1 TOPICALLY TWICE DAILY DX: TAKING COMPRESSION STOCKINGS 15-20 MMHG DIRECTED DX: I87.2 DAILY TAKING CLONAZEPAM 0.5 MG TABLET 1 TABLET AT BEDTIME ORALLY ONCE A DAY TAKING PRAZOSIN HCL 5 MG CAPSULE 1 CAPSULE AT BEDTIME ORALLY ONCE A DAY TAKING BLOOD GLUCOSE TEST STRIP - STRIP 1 STRIP IN VITRO DX: TWICE DAILY TAKING HOME STYLE BED RAILS - MISCELLANEOUS DIRECTED [facility] # [id number] USE UNDER THE BED RAILS EVERY NIGHT TO PREVENT FALLING OUT OF BED TAKING BUPROPION HCL ER (SR) 150 MG TABLET EXTENDED RELEASE 12 HOUR 1 TABLET ORALLY TWICE A DAY TAKING METOPROLOL TARTRATE 100 MG TABLET 1 TABLET WITH FOOD ORALLY TWICE A DAY TAKING LISINOPRIL 20 MG TABLET TAKE ONE TABLET BY MOUTH EVERY DAY , NOTES: LAST DOSE 07-06-2020 TAKING SPIRONOLACTONE 25 MG TABLET 1 TABLET ORALLY ONCE A DAY TAKING AMLODIPINE BESYLATE 10 MG TABLET 1 TABLET ORALLY ONCE A DAY, NOTES: LAST DOSE 07-06-2020 08 TAKING LYRICA 300 MG CAPSULE 1 CAPSULE ORALLY BID TAKING METFORMIN HCL 1000 MG TABLET 1 TABLET WITH MEALS ORALLY TWICE DAILY, NOTES: LAST 07-05-2020 08 TAKING GLIMEPIRIDE 2 MG TABLET 1 TAB BID WITH FOOD ORALLY TWICE DAILY, NOTES: LAST 07-05-2020 08 TAKING TIZANIDINE HCL 4 MG TABLET 1 TABLET NEEDED ORALLY NEEDED FOR SPASMS AND PAIN BEFORE BEDTIME TAKING ATORVASTATIN CALCIUM 80 MG TABLET TAKE 1 TABLET BY MOUTH ONCE A DAY TAKING OMEPRAZOLE 20 MG CAPSULE DELAYED RELEASE 1 CAPSULE ORALLY BEFORE BEDTIME TAKING IBUPROFEN 600 MG TABLET 1 TABLET WITH FOOD OR MILK NEEDED ORALLY Q8H PRN TAKING STEGLATRO 15 MG TABLET 1 TABLET ORALLY ONCE A DAY TAKING ZYRTEC ALLERGY 10 MG TABLET 1 TABLET ORALLY ONCE A DAY NEEDED TAKING SOMA 350 MG TABLET 1 TABLET NEEDED ORALLY BID MDD2 NOT-TAKING QUETIAPINE FUMARATE 100 MG TABLET 1/2 TABLET AT BEDTIME ORALLY ONCE A DAY NOT-TAKING LOPERAMIDE HCL 2 MG CAPSULE 1 CAPSULE NEEDED ORALLY FOUR TIMES A DAY ONLY FOLLOWING A LOOSE STOOL, NOTES: INSURANCE WON'T COVER NOT-TAKING CAPSAICIN 0.025 % CREAM 1 APPLICATION TO AFFECTED AREA NEEDED EXTERNALLY OB LOWER EXT BILATERAL THREE TIMES A DAY NOT-TAKING OZEMPIC (0.25 OR 0.5 MG/DOSE) 2 MG/1.5ML SOLUTION PEN-INJECTOR DIRECTED 0.25 MG INJ SUBCUTANEOUS WEEKLY NOT-TAKING DIFLUCAN 100 MG TABLET 1 TABLET ORALLY DAILY NOT-TAKING KETOCONAZOLE 2 % CREAM 1 APPLICATION EXTERNALLY TO HEAD OF PENIS TWICE A DAY NOT-TAKING SOMA 350 MG TABLET 1 TABLET NEEDED ORALLY FOR SPASMS AND PAIN EVERY 8 HOURS NEEDED MDD3 NOT-TAKING KETOROLAC TROMETHAMINE 10 MG TABLET 1 TABLET WITH FOOD OR MILK NEEDED ORALLY FOR PAIN EVERY 8 HRS MDD3 MEDICATION LIST REVIEWED AND RECONCILED WITH THE PATIENT PAST MEDICAL HISTORY HTN SHORT''S PALSY UNSPECIFIED ESSENTIAL HYPERTENSION NONDEPENDENT TOBACCO USE DISORDER SMOKING MIGRAINE WITHOUT AURA, WITH INTRACTABLE MIGRAINE, SO STATED, WITHOUT MENTION OF STATUS MIGRAINOSUS ALLERGIC CONJUNCTIVITIS HYPERLIPIDEMIA ESSENTIAL HYPERTENSION ASCVD10 (2016)- 11.5% DIEBETIC TYPE 2 EPIDIDYMITIS HEPATITIS C CHRONIC WITH LIVER CIRRHOSIS TREATED WITH 12 WEEKS MAVYRET HEP C IS CURED HYPERLIPIDEMIA CERVICALGIA PTSD SACROILIITIS HERPESVIRAL INFECTION OF UROGENITAL SYSTEM BALANITIS LUMBAR SPONDYLOSIS PIRIFORMIS MUSCLE PAIN GALLLBLADDER REMOVES NECK PAIN ALLERGIES ASPIR-81: VOMITING - SIDE EFFECTS SURGICAL HISTORY RIGHT EPIDIDYMAL CYST REMOVAL 07/08/[address] ROBIN 08/2016 LEFT INGUINAL HERNIA 02/10/2017 PIRIFORMIS MUSCLE INJECTION -RIGHT-[facility] 12/28/2016 BILATIERAL INGUINAL HERNIA REPAIR 02/10/17 RIGHT HERNIA REPAIR 06/2017 BILAT EYE LID LIFTS 10/2019 CHOLECYSTECTOMY 03/17/2020 FAMILY HISTORY FATHER: , DIAGNOSED WITH HYPERTENSION MOTHER: , DIABETES SIBLINGS: ALIVE, ASTHMA IN 1 BROTHER AND 1 SISITER DAUGHTER(S): ALIVE, DAUGHTERS NEED INHALERS DURING WEATHER CHANGES 1 BROTHER(S) , 2 SISTER(S) . 2DAUGHTER(S) . SOCIAL HISTORY GENERAL: TOBACCO USE ARE YOU A:FORMER SMOKER HOW LONG HAS IT BEEN SINCE YOU LAST SMOKED?1-5 YEARS SMOKING CESSATION INFORMATION GIVEN04/01/2019 LATEX QUESTIONNAIRE LATEX ALLERGY : HAVE YOU EVER DEVELOPED ANY TYPE OF REACTION AFTER HANDLING LATEX PRODUCTS SUCH RUBBER GLOVES, CONDOMS, DIAPHRAGMS, BALLOONS, SOCKS, OR UNDERWEAR?NO LATEX ALLERGY : HAVE YOU EVER DEVELOPED ANY TYPE OF REACTION DURING OR AFTER DENTAL APPOINTMENT, VAGINAL/RECTAL EXAMINATION, SURGICAL PROCEDURE, OR ANY OTHER EXPOSURE?NO LATEX RISK : HAVE YOU EVER HAD ANY DIFFICULTY BREATHING OR HIVES AFTER EATING OR HANDLING ANY FRUITS, OR VEGETABLES; SUCH KIWI, BANANAS, STONE FRUITS, OR CHESTNUTSNO LATEX RISK : DO YOU HAVE A PREVIOUS PERSONAL HISTORY OF MORE THAN NINE SURGERIES, SPINA BIFIDA, OR REPEATED CATHERIZATIONS? NO LATEX RISK : ARE YOU FREQUENTLY EXPOSED TO LATEX PRODUCTS IN YOUR OCCUPATION?NO DATE ASKED : 07/06/2020 BMI CARE GOAL FOLLOW-UP ABOVE NORMAL BMI FOLLOW-UPLIFESTYLE EDUCATION REGARDING DIET ALCOHOL SCREENING DID YOU HAVE A DRINK CONTAINING ALCOHOL IN THE PAST YEAR?NO POINTS0 INTERPRETATIONNEGATIVE RECREATIONAL DRUG USE DRUG USE?NO CAFFEINE CAFFEINE USE?YES HOW OFTEN AND HOW MUCH? COFFEE 1/DAY TEA 2-3/DAY SEXUAL HX HAD SEX IN THE LAST 12 MONTHS (VAGINAL, ORAL, OR ANAL)?YES WITHWOMEN ONLY PREVENTION STRATEGIES DISCUSSED:CONDOMS USE PROTECTION?NO HAVE YOU EVER HAD AN STD?NO HIV / HEP-C SCREENING HIV TEST OFFERED TO PATIENT:YES DATE OFFERED:10/06/2016 TEST ACCEPTED:NO HEP-C TEST OFFERED TO PATIENT:YES DATE OFFERED:10/06/2016 REASON:PATIENT DECLINED TEST ACCEPTED:NO REASON:PATIENT DECLINED EPISCOPALIAN [id number] JEWISH LANGUAGE [place]ABIC. EDUCATION LEVEL OF EDUCATION:NOT FINISHED COLLEGE LEARNING BARRIERS / SPECIAL NEEDS CHANGE FROM LAST VISIT?YES BARRIERS TO LEARNING?NO HEARING IMPAIRED?NO VISION IMPAIRED?YES COGNITIVELY IMPAIRED?NO :CORRECTIVE LENSES READINESS TO LEARN?YES LEARNING PREFERENCES?NO LEARNING CAPABILITIES PRESENT?YES EMOTIONAL BARRIERS?NO SPECIAL DEVICES?YES :CANE PAPER SORTER NEEDED?NO DOMESTIC VIOLENCE DO YOU FEEL SAFE IN YOUR ENVIRONMENT?YES OCCUPATION: NOT WORKING, UNABLE APPLYING FOR SSDI. DIET: REGULAR. EXERCISE: NO REGULAR EXERCISE. MARITAL STATUS: SINGLE. OTHERS AT HOME: GIRLFRIEND. - PFS REFERRAL NEEDED?NO CLERGY REFERRAL NEEDED?NO PUBLIC HEALTH REFERRAL NEEDED?NO HAS THE PATIENT BEEN EDUCATED REGARDING HIS/HER PLAN OF CARE?YES HAS THE PATIENT BEEN EDUCATED REGARDING PAIN, THE RISK FOR PAIN, THE IMPORTANCE OF EFFECTIVE PAIN MANAGEMENT, AND THE PAIN ASSESSMENT PROCESS?YES ADVANCE DIRECTIVE ADVANCE DIRECTIVE DISCUSSED WITH PATIENT:YES 05/07/2020 PT STATES HCP IS TANNER PERERA - DAUGHTER [phone] HOSPITALIZATION/MAJOR DIAGNOSTIC PROCEDURE HYPOTENSIVE AND HYPERGLYCEMIA 08/2018 FACIAL DROOPING, POSSIBLE STROKE/SHORT'S PALSY 02/2019 SURGERIES RELATED VITAL SIGNS WT 185.8 LBS, HT 66 IN, BMI 29.99 INDEX, BP 142/89 MM HG, HR 61 /MIN, RR 18 /MIN, TEMP 96.1 F, OXYGEN SAT % 96%, NA INITIALS SC 13:11, REVIEWED BY: BG. EXAMINATION GENERAL EXAMINATION: THE PATIENT IS ALERT, ORIENTED TIMES THREE AND COOPERATIVE. LUNGS ARE CLEAR TO AUSCULTATION. HEART SHOWS REGULAR RHYTHM, NO MURMURS AND NO GALLOPS. ASSESSMENTS SACROILIITIS, NOT ELSEWHERE CLASSIFIED - M46.1 (PRIMARY) TREATMENT SACROILIITIS, NOT ELSEWHERE CLASSIFIED [facility] FLUORO GUIDANCE (PAIN)[id number] MEDICATION: VALIUM TAB 10MG ORALLY (DIAZEPAM)LUPE KIRK 07/06/2020 1:48:23 PM > VERIFIED LOT# [id number] EXP 02/06 DANIEL ZAMORA 07/06/2020 1:50:54 PM > ADMINISTERED MEDICATION: OXYCODONE HCL TAB 10MG ORALLYLUPE KIRK 07/06/2020 1:49:29 PM > VERIFIED LOT# [id number] EXP 07/2021 DANIEL ZAMORA 07/06/2020 1:51:40 PM > ADMINISTERED OTHERS NOTES: PRE PROCEDURE PHONE CALL ATTEMPTED, MESSAGE LEFT 07/03/2020 153Abraham MOTT RN. PROCEDURES PAIN NURSING RECORD PROCEDURE IN ROOM 1455, PHYSICIAN IN ROOM 1504, START 1507, FINISH 1515, PHYSICIAN OUT OF ROOM 1516, OUT OF ROOM 1550, ECG NORMAL SINUS, PATIENT SHIELDED YES, SAFETY STRAP YES, PREP CHLOROPREP BY MARTINEZ BERNARDO, DRESSING TEGADERM BY DR MAYER LOC: . 07-06-2020 @ 1457- ALERT, ORIENTED BG RESP: 1. 07-06-2020 @ 1457- REGULAR, NO DYSPNEA BG COLOR: 1. PINK 07-06-2020 @ 1457- TBJOANNLEYRN SKIN: 1. WARM, DRY 07-06-2020 @ 1457- TBJOANNLEYRN POSITION: 1. PRONE 07-06-2020 @ 1457- DUSTYLEYRN VITALS: 07/06/2020 1457 143/91, 55, 92% TBRADLEYRAtilio 07/06/2020 1500 150/88, 56, 921% TBRADLEYRN 07/06/2020 1515 152/92, 60, 97% TBRADLEYRN 1539- 151/94, 67, 92% TBRADLEYRAtilio COMPLETION OF PROCEDURE APPOINTMENT: POST PAIN 4 LOW BACK, DRESSING SITE DRY AND INTACT BILATERAL LOW BACK, IV N/A, GAIT OTHER 07-06-2020 @ 9361 PATIENT ESCOURTED TO VEHICLE BY RNAZ RN, TEACHING COMPLETED, PATIENT ACKNOWLEDGES UNDERSTANDING YES PATIENT VERBALIZES UNDERSTANDING OF DC INSTRUCTION, PATIENT DISCHARGED AT 1550 PN SI PRE PROCEDURE DIAGNOSIS SACROILIITIS, SACROILIAC JOINT DYSFUNCTION POST PROCEDURE DIAGNOSIS SACROILIITIS, SACROILIAC JOINT DYSFUNCTION PROCEDURE BILATERAL SACROILIAC JOINT BLOCK SURGEON DR. KIARA MAYER FIELD REIMBURSEMENT MANAGER NONE ANESTHESIA LOCAL PRE PROCEDURE NOTE THE PATIENT WITH HISTORY OF CHRONIC LOW BACK PAIN. I EVALUATED THE PATIENT AND REVIEWED THE CHART. I WENT OVER THE RISKS, ALTERNATIVES, AND BENEFITS ASSOCIATED WITH THIS PROCEDURE. THE PATIENT WOULD LIKE TO PROCEED AND GAVE CONSENT TO PERFORM THE PROCEDURE. THE PATIENT DENIES UNEXPLAINABLE WEIGHT LOSS, FEVER, CHILLS, OR NEW CHANGES IN URINARY OR BOWEL CONTROL. THE PATIENT IS COVID-19 NEGATIVE DESCRIPTION OF PROCEDURE THE PATIENT WAS BROUGHT TO THE PROCEDURE ROOM AND PLACED IN THE PRONE POSITION. THE LUMBOSACRAL AREA WAS CLEANED WITH CHLORAPREP SOLUTION AND DRAPED ASEPTICALLY. THE PROCEDURE WAS DONE UNDER STERILE CONDITIONS. A TIMEOUT WAS PERFORMED WHERE LATERALITY AND THE SITE OF THE PROCEDURE WERE CHECKED AND CONFIRMED WITH EVERYONE IN THE ROOM. UNDER FLUOROSCOPIC GUIDANCE, THE TARGET POINT WAS SELECTED AT THE LOWER BORDER OF THE RIGHT AND LEFT SACROILIAC JOINT. TARGET POINT WAS SELECTED AFTER MEDIAL ROTATION AND TILT OF THE MAGNIFIER OR THE C-ARM. I CONFIRMED AGAIN WITH EVERYONE IN THE ROOM THE LATERALITY AND SITE OF THE TARGET AT 1508. LIDOCAINE 0.5% WAS USED TO NUMB THE SKIN AND THE SUBCUTANEOUS TISSUE BELOW IT. SPINAL NEEDLES, 22-GAUGE, WERE ADVANCED UNDER FLUOROSCOPIC GUIDANCE AND FOLLOWING PATIENT FEEDBACK UNTIL THE TARGETS WERE TOUCHED. THE POSITION OF THE NEEDLES WAS VERIFIED WITH AP AND OBLIQUE VIEWS. AFTER PROPER POSITION OF THE NEEDLES WAS ACHIEVED, ISOVUE-M DYE 30%, 0.1 ML, WAS INJECTED SHOWING ADEQUATE SPREAD OF THE DYE. KENALOG 40 MG WAS INJECTED AT EACH SITE. THEN, A SOLUTION OF 3.0 ML OF BUPIVACAINE 0.125% WAS USED TO FLUSH EACH NEEDLE. THE MEDICATIONS WERE VERIFIED WITH THE NURSE. THERE WAS NO EVIDENCE OF BLOOD, PARESTHESIA OR CEREBROSPINAL FLUID DURING THE PROCEDURE. THE PATIENT WAS SENT TO THE RECOVERY ROOM. THE PATIENT WAS MOVING THE EXTREMITIES AND DOING WELL. THERE WERE NO COMPLICATIONS DURING THE PROCEDURE. ESTIMATED BLOOD LOSS WAS LESS THAN 5 ML. FLUOROSCOPIC TIME WAS 30 SECONDS. POST PROCEDURE NOTE DEPENDING ON THE RESULTS, CONSIDER A NEW MRI THE LAST ONE WAS IN 2017 AND CONSIDER A LUMBAR EPIDURAL STEROID INJECTION. THE PROCEDURE DONE WAS DISCUSSED WITH THE PATIENT. THE PATIENT WILL BE SEEN IN A FOLLOW UP IN THE NEXT FEW WEEKS. I AM LOOKING FOR LONG LASTING PAIN RELIEF FOR THE PATIENT WITH THIS INTERVENTION. INSTRUCTIONS WERE GIVEN, QUESTIONS WERE ANSWERED, AND THE PATIENT EXPRESSED UNDERSTANDING AND AGREES WITH THE PLAN. I, CINDY PLATT, DOCUMENTED THE ABOVE INFORMATION ACTING A SCRIBE FOR DR. MAYER. I HAVE REVIEWED THE ABOVE DOCUMENT, WRITTEN BY CINDY PLATT, CARPENTER FORM, AND I VERIFY THAT IT IS ACCURATE PROCEDURE CODES 57453 INJECT SACROILIAC JOINT, MODIFIERS: 50 DISPOSITION & COMMUNICATION FOLLOW UP FOLLOW UP WITH HAND SEWER (REASON: POST BILATERAL SACROILIAC JOINT BLOCK) ELECTRONICALLY SIGNED BY KIARA MAYER MD, MD ON 07/08/2020 AT 05:07 PM EST DISCLAIMER : THIS IS A VISIT SUMMARY EXTRACTED FROM THE [facility] CHART. IT IS NOT A COPY OF THE [facility] PROGRESS NOTE. MTDD
== END ==
LOC: M PAIN 13:00
PROVIDERS: ATTEND Anesthesiology
DX: M46.1 Sacroiliitis, not elsewhere classified (principal); E11.9 Type 2 diabetes mellitus without complications; G43.909 Migraine, unspecified, not intractable, without status migrainosus; Z86.59 Personal history of other mental and behavioral disorders; Z87.891 Personal history of nicotine dependence; Z88.6 Allergy status to analgesic agent; Z79.84 Long term (current) use of oral hypoglycemic drugs; Z79.899 Other long term (current) drug therapy
CPT/HCPCS: 27096; J3301; Q9967

== ENCOUNTER → 2020-07-27 | Outpatient (CLI) | payer OTHER ==
[~2020-07-27] MED LIST changes: -BUPIVACAINE HCL 0.25% 30ML VIAL As Ordered ONE; -ISOVUE-M 300 61% 15ML VIAL As Ordered ONE; -LIDOCAINE 1% SDV 30ML VIAL As Ordered ONE; -TRIAMCINOLONE ACETONIDE SUSP 40 MG/ML VIAL (J3301) As Ordered ONE; -diazePAM 5MG TABLET As Ordered ONE; -oxyCODONE 5MG TAB As Ordered ONE
--- NOTE | 2020-07-27 14:09 | REP ---
INDICATION: DURAN COMPARISON: 06/20/2019 TECHNIQUE: Real time selby scale ultrasound examination using curved array transducer. FINDINGS: Liver demonstrates coarsened mildly hyperechoic echotexture consistent with hepatocellular disease and fatty infiltration. No focal hepatic lesion identified. Pancreas appears normal. The gallbladder has been removed. No biliary ductal dilatation is appreciated and the common bile duct measures 4.0 mm diameter. Right kidney is normal in reniform shape without hydronephrosis and measures 10.1 x 5.8 x 5.1 cm with sub cm lower pole simple cyst. No ascites in the visualized right upper quadrant. IMPRESSION: 1. Hepatosteatosis. <Electronically signed by Dinesh Sanchez > 07/27/20 0034
== END ==
LOC: M RAD 08:40
PROVIDERS: ATTEND Family Medicine
DX: K75.81 Nonalcoholic steatohepatitis (NASH) (principal)

== ENCOUNTER → 2020-07-27 | Outpatient (CLI) | payer OTHER ==
--- NOTE | 2020-07-30 00:31 | ECWPNPC ---
PATIENT NAME: ALLYN PERERA : 1960 GENDER: MALE VISIT DATE: 07/27/2020 DISCHARGE DATE: 07/27/20 1209 VISIT LOCKED DATE TIME: PHYSICIAN: ALFA CARRASCO PHYSICIAN PAGER NO: ACTIVE RESOURCE: ALFA CARRASCO REASON FOR APPOINTMENT 1. POST BILATERAL SACROILIAC JOINT BLOCK HISTORY OF PRESENT ILLNESS GENERAL: HERE FOR POST PROCEDURE FOLLOW-UP. HAD BILATERAL SIJ BLOCK ON 07/06/2020.. DOING VERY WELL TODAY. REPORTING IMPROVED ACTIVITY TOLERANCE. REVIEWED MEDICATIONS AND DISCUSSED TREATMENT PLAN.-. FALL RISK SCREENING: SCREENING :TWO OR MORE FALLS WITHOUT INJURY IN THE PAST YEAR PAIN SCREENING: PATIENT HAS A COMPLAINT OF ACUTE OR CHRONIC PAIN :YES LOCATION OF PAIN:LOW BACK INTENSITY OF PAIN (SCALE OF 1 TO 10):2 WHAT DOES YOUR PAIN FEEL LIKE:SHARP DURATION:INTERMITTENT PAIN IS INCREASED BY:PROLONGED STANDING, OTHERS SITTING PAIN IS DECREASED BY:OTHERS INJECTIONS NURSING NOTE: -. PAIN CENTER INTAKE QUESTIONS: DO YOU HAVE A HISTORY OF MRSA? :NO DO YOU TAKE A BLOOD THINNERS? :NO DO YOU HAVE ANY BLEEDING DISORDERS? :NO ANY NEW NUMBNESS OR WEAKNESS IN YOUR LEGS OR ARMS? :NO ANY PACEMAKER,DEFIBRILLATOR, OR DORSAL COLUMN STIMULATOR? :NO DO YOU HAVE ANY RASHES OR OPEN SORES? :NO ARE YOU ALLERGIC TO IV DYE? :NO ARE YOU DIABETIC? :YES ANY NEW PROBLEMS WITH YOUR MEDICATIONS? :NO HAVE YOU RECEIVED A VACCINE IN THE PAST 30 DAYS? :NO DO YOU PLAN TO RECEIVE A VACCINE IN THE NEXT 21 DAYS? :NO DO YOU NEED ANY PRESCRIPTION? :NO DO YOU TAKE ANY IMMUNOSUPPRESSIVE MEDICATIONS? :NO IS THERE A CHANCE YOU COULD BE ? :NO ARE YOU BREAST FEEDING? :NO CURRENT MEDICATIONS TAKING FLONASE 50 MCG/ACT SUSPENSION 1 SPRAY IN EACH NOSTRIL NASALLY ONCE A DAY NEEDED TAKING BLOOD GLUCOSE METER - KIT 1 METER DX:E11.65 TWICE DAILY TAKING BD LANCET ULTRAFINE 33G - MISCELLANEOUS 1 LANCET INTRADERMALLY TWICE DAILY DX:E11.65 TAKING ALCOHOL PREP PAD 70 % PAD 1 TOPICALLY TWICE DAILY DX:E11.65 TAKING COMPRESSION STOCKINGS 15-20 MMHG DIRECTED DX: I87.2 DAILY TAKING CLONAZEPAM 0.5 MG TABLET 1 TABLET AT BEDTIME ORALLY ONCE A DAY TAKING PRAZOSIN HCL 5 MG CAPSULE 1 CAPSULE AT BEDTIME ORALLY ONCE A DAY TAKING BLOOD GLUCOSE TEST STRIP - STRIP 1 STRIP IN VITRO DX:E11.65 TWICE DAILY TAKING HOME STYLE BED RAILS - MISCELLANEOUS DIRECTED [facility] # [id number] USE UNDER THE BED RAILS EVERY NIGHT TO PREVENT FALLING OUT OF BED TAKING BUPROPION HCL ER (SR) 150 MG TABLET EXTENDED RELEASE 12 HOUR 1 TABLET ORALLY TWICE A DAY TAKING METOPROLOL TARTRATE 100 MG TABLET 1 TABLET WITH FOOD ORALLY TWICE A DAY TAKING LISINOPRIL 20 MG TABLET TAKE ONE TABLET BY MOUTH EVERY DAY , NOTES: LAST DOSE 07-06-2020 TAKING SPIRONOLACTONE 25 MG TABLET 1 TABLET ORALLY ONCE A DAY TAKING AMLODIPINE BESYLATE 10 MG TABLET 1 TABLET ORALLY ONCE A DAY, NOTES: LAST DOSE 07-06-2020 0800 TAKING LYRICA 300 MG CAPSULE 1 CAPSULE ORALLY BID TAKING TIZANIDINE HCL 4 MG TABLET 1 TABLET NEEDED ORALLY NEEDED FOR SPASMS AND PAIN BEFORE BEDTIME TAKING ATORVASTATIN CALCIUM 80 MG TABLET TAKE 1 TABLET BY MOUTH ONCE A DAY TAKING OMEPRAZOLE 20 MG CAPSULE DELAYED RELEASE 1 CAPSULE ORALLY BEFORE BEDTIME TAKING IBUPROFEN 600 MG TABLET 1 TABLET WITH FOOD OR MILK NEEDED ORALLY Q8H PRN TAKING STEGLATRO 15 MG TABLET 1 TABLET ORALLY ONCE A DAY TAKING ZYRTEC ALLERGY 10 MG TABLET 1 TABLET ORALLY ONCE A DAY NEEDED TAKING GLIMEPIRIDE 2 MG TABLET 1 TAB BID WITH FOOD ORALLY TWICE DAILY TAKING METFORMIN HCL 1000 MG TABLET 1 TABLET WITH MEALS ORALLY TWICE DAILY NOT-TAKING SOMA 350 MG TABLET 1 TABLET NEEDED ORALLY BID MDD2 NOT-TAKING QUETIAPINE FUMARATE 100 MG TABLET 1/2 TABLET AT BEDTIME ORALLY ONCE A DAY NOT-TAKING LOPERAMIDE HCL 2 MG CAPSULE 1 CAPSULE NEEDED ORALLY FOUR TIMES A DAY ONLY FOLLOWING A LOOSE STOOL, NOTES: INSURANCE WON'T COVER NOT-TAKING CAPSAICIN 0.025 % CREAM 1 APPLICATION TO AFFECTED AREA NEEDED EXTERNALLY OB LOWER EXT BILATERAL THREE TIMES A DAY NOT-TAKING OZEMPIC (0.25 OR 0.5 MG/DOSE) 2 MG/1.5ML SOLUTION PEN-INJECTOR DIRECTED 0.25 MG INJ SUBCUTANEOUS WEEKLY NOT-TAKING DIFLUCAN 100 MG TABLET 1 TABLET ORALLY DAILY NOT-TAKING KETOCONAZOLE 2 % CREAM 1 APPLICATION EXTERNALLY TO HEAD OF PENIS TWICE A DAY NOT-TAKING SOMA 350 MG TABLET 1 TABLET NEEDED ORALLY FOR SPASMS AND PAIN EVERY 8 HOURS NEEDED MDD3 NOT-TAKING KETOROLAC TROMETHAMINE 10 MG TABLET 1 TABLET WITH FOOD OR MILK NEEDED ORALLY FOR PAIN EVERY 8 HRS MDD3 MEDICATION LIST REVIEWED AND RECONCILED WITH THE PATIENT PAST MEDICAL HISTORY HTN SHORT''S PALSY UNSPECIFIED ESSENTIAL HYPERTENSION NONDEPENDENT TOBACCO USE DISORDER SMOKING MIGRAINE WITHOUT AURA, WITH INTRACTABLE MIGRAINE, SO STATED, WITHOUT MENTION OF STATUS MIGRAINOSUS ALLERGIC CONJUNCTIVITIS HYPERLIPIDEMIA ESSENTIAL HYPERTENSION ASCVD10 (2016)- 11.5% DIEBETIC TYPE 2 EPIDIDYMITIS HEPATITIS C CHRONIC WITH LIVER CIRRHOSIS TREATED WITH 12 WEEKS MAVYRET HEP C IS CURED HYPERLIPIDEMIA CERVICALGIA PTSD SACROILIITIS HERPESVIRAL INFECTION OF UROGENITAL SYSTEM BALANITIS LUMBAR SPONDYLOSIS PIRIFORMIS MUSCLE PAIN GALLLBLADDER REMOVES NECK PAIN ALLERGIES ASPIR-81: VOMITING - SIDE EFFECTS SOCIAL HISTORY GENERAL: TOBACCO USE ARE YOU A:FORMER SMOKER HOW LONG HAS IT BEEN SINCE YOU LAST SMOKED?1-5 YEARS SMOKING CESSATION INFORMATION GIVEN04/01/2019 LATEX QUESTIONNAIRE LATEX ALLERGY : HAVE YOU EVER DEVELOPED ANY TYPE OF REACTION AFTER HANDLING LATEX PRODUCTS SUCH RUBBER GLOVES, CONDOMS, DIAPHRAGMS, BALLOONS, SOCKS, OR UNDERWEAR?NO LATEX ALLERGY : HAVE YOU EVER DEVELOPED ANY TYPE OF REACTION DURING OR AFTER DENTAL APPOINTMENT, VAGINAL/RECTAL EXAMINATION, SURGICAL PROCEDURE, OR ANY OTHER EXPOSURE?NO LATEX RISK : HAVE YOU EVER HAD ANY DIFFICULTY BREATHING OR HIVES AFTER EATING OR HANDLING ANY FRUITS, OR VEGETABLES; SUCH KIWI, BANANAS, STONE FRUITS, OR CHESTNUTSNO LATEX RISK : DO YOU HAVE A PREVIOUS PERSONAL HISTORY OF MORE THAN NINE SURGERIES, SPINA BIFIDA, OR REPEATED CATHERIZATIONS? NO LATEX RISK : ARE YOU FREQUENTLY EXPOSED TO LATEX PRODUCTS IN YOUR OCCUPATION?NO DATE ASKED : 07/27/2020 ALCOHOL USE: NO. BMI CARE GOAL FOLLOW-UP ABOVE NORMAL BMI FOLLOW-[facility] EDUCATION REGARDING DIET ALCOHOL SCREENING DID YOU HAVE A DRINK CONTAINING ALCOHOL IN THE PAST YEAR?NO POINTS0 INTERPRETATIONNEGATIVE RECREATIONAL DRUG USE DRUG USE?NO CAFFEINE CAFFEINE USE?YES HOW OFTEN AND HOW MUCH? COFFEE 1/DAY TEA 2-3/DAY SEXUAL HX HAD SEX IN THE LAST 12 MONTHS (VAGINAL, ORAL, OR ANAL)?YES WITHWOMEN ONLY PREVENTION STRATEGIES DISCUSSED:CONDOMS USE PROTECTION?NO HAVE YOU EVER HAD AN STD?NO HIV / HEP-C SCREENING HIV TEST OFFERED TO PATIENT:YES DATE OFFERED:10/06/2016 TEST ACCEPTED:NO HEP-C TEST OFFERED TO PATIENT:YES DATE OFFERED:10/06/2016 REASON:PATIENT DECLINED TEST ACCEPTED:NO REASON:PATIENT DECLINED [id number] [employer]. 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 DIET: REGULAR. EXERCISE: NO REGULAR EXERCISE. MARITAL STATUS: SINGLE. OTHERS AT HOME: GIRLFRIEND. - PFS REFERRAL NEEDED?NO CLERGY REFERRAL NEEDED?NO PUBLIC HEALTH REFERRAL NEEDED?NO HAS THE PATIENT BEEN EDUCATED REGARDING HIS/HER PLAN OF CARE?YES HAS THE PATIENT BEEN EDUCATED REGARDING PAIN, THE RISK FOR PAIN, THE IMPORTANCE OF EFFECTIVE PAIN MANAGEMENT, AND THE PAIN ASSESSMENT PROCESS?YES ADVANCE DIRECTIVE ADVANCE DIRECTIVE DISCUSSED WITH PATIENT:YES 05/07/2020 PT STATES HCP IS TANNER PERERA - DAUGHTER [phone] REVIEW OF SYSTEMS CONSTITUTIONAL: ANY RECENT FEVER NO . CHILLS NO . WEIGHT CHANGE OF UNKNOWN REASONS NO . GASTROENTEROLOGY: NEW UNEXPLAINABLE CHANGES IN BOWEL CONTROL NO . CONSTIPATION NO . GENITOURINARY: ANY NEW CHANGE IN BLADDER CONTROL? NO . NEUROLOGY: NEW ONSET DIZZINESS OR NEUROLOGICAL CHANGES NOT MENTIONED NO . NEW NUMBNESS OR PAIN PATTERNS NOT MENTIONED AND PERTINENT TO TODAY'S VISIT NO . CARDIOLOGY: NEW CHEST PRESSURE NO . NEW CHEST PAIN NO . RESPIRATORY: UNEXPLAINABLE COUGH NO . NEW SHORTNESS OF BREATH NO . VITAL SIGNS WT 183 LBS, HT 66 IN, BMI 29.53 INDEX, BP 130/80 MM HG, HR 60 /MIN, RR 18 /MIN, TEMP 97 F, OXYGEN SAT % 97%, SAFE IN ENV? (Y/N) YEST.JO [place]. EXAMINATION GENERAL EXAMINATION: GENERALAWAKE,ALERT ,PLEASANT . PSYCHAFFECT NORMAL . LUNGS:LUNG SCHNEIDER ARE CLEAR TO AUSCULTATION BILATERALLY. GOOD MOVEMENT OF AIR . HEART:S1, S2 IN A REGULAR RATE AND RHYTHM. NO SIGNIFICANT MURMURS, RUBS OR GALLOPS NOTED . ASSESSMENTS OTHER CHRONIC PAIN - G89.29 (PRIMARY) SACROILIITIS, NOT ELSEWHERE CLASSIFIED - M46.1 TREATMENT OTHER CHRONIC PAIN REFILL LYRICA CAPSULE, 300 MG, 1 CAPSULE, ORALLY, BID, 30 DAYS, 60 CAPSULE, REFILLS 2 START MOBIC TABLET, 15 MG, 1 TABLET, ORALLY, ONCE A DAY, 30 DAY(S), 15, REFILLS 2 PAIN PROCEDURE LOGDATE OF [id number]/18/2021PROCEDURE:BILATERAL SACROILIAC JOINT BLOCKAMOUNT OF PRE SEDATEVALIUM 10 MG; OXYCODONE 10MGRESULT:REPORTING MARKED REDUCTION IN PAIN THAT CONTINUES TODAY PROCEDURE CODES FA211 ESTABILISHED PATIENT [facility] CHARGE DISPOSITION & COMMUNICATION FOLLOW UP 3 MONTHS (REASON: LBP/NECK PAIN) ELECTRONICALLY SIGNED BY BARBARA HEARD ON 07/29/2020 AT 09:00 PM EST DISCLAIMER : THIS IS A VISIT SUMMARY EXTRACTED FROM THE [employer] CHART. IT IS NOT A COPY OF THE [employer] PROGRESS NOTE. DARLIN
== END ==
LOC: M PAIN 11:30
PROVIDERS: ATTEND Nurse Practitioner Family
DX: M46.1 Sacroiliitis, not elsewhere classified (principal); G89.29 Other chronic pain; E11.9 Type 2 diabetes mellitus without complications; G43.909 Migraine, unspecified, not intractable, without status migrainosus; Z86.59 Personal history of other mental and behavioral disorders; Z87.891 Personal history of nicotine dependence; Z88.6 Allergy status to analgesic agent; Z79.84 Long term (current) use of oral hypoglycemic drugs; Z79.899 Other long term (current) drug therapy

== ENCOUNTER → 2020-08-04 | Outpatient (REF) | payer OTHER | LOC: M SFHCPLAZ 11:09 | PROVIDERS: ATTEND Family Medicine | DX: E11.42 Type 2 diabetes mellitus with diabetic polyneuropathy (principal) ==

== ENCOUNTER → 2020-10-23 | Outpatient (CLI) | payer OTHER ==
[~2020-10-23] MED LIST changes: +GABA-283 PO; -GABA-845 PO
--- NOTE | 2020-10-27 14:55 | ECWPNPC ---
PATIENT NAME: ALLYN PERERA : 1960 GENDER: MALE VISIT DATE: 10/23/2020 DISCHARGE DATE: 10/23/20 1025 VISIT LOCKED DATE TIME: PHYSICIAN: ALFA CARRASCO PHYSICIAN PAGER NO: ACTIVE RESOURCE: ALFA CARRASCO REASON FOR APPOINTMENT 1. LBP/NECK PAIN HISTORY OF PRESENT ILLNESS GENERAL: HERE FOR FOLLOW-UP OF CHRONIC NECK AND LOW BACK PAIN. OVERALL STATES HE IS DOING WELL. RATING PAIN LEVEL A 2/10 VAS OR LESS DAILY. REMAINS ACTIVE. FINDS PERIODIC USE OF MOBIC 15 MG HELPFUL. TAKING TIZANIDINE 4 MG AT NIGHTTIME DAILY WHICH IS HELPFUL. TAKING LYRICA 300 MG TWICE A DAY. -. FALL RISK SCREENING: SCREENING : NO FALLS REPORTED IN THE LAST YEAR, MORE THEN 8 FALLS THIS YEAR HITS HEAD BUT NO MARJOR INJURIES . PAIN SCREENING: PATIENT HAS A COMPLAINT OF ACUTE OR CHRONIC PAIN :YES LOCATION OF PAIN:NECK, LOW BACK INTENSITY OF PAIN (SCALE OF 1 TO 10):2 WHAT DOES YOUR PAIN FEEL LIKE:SORE DURATION:INTERMITTENT PAIN IS INCREASED BY:ACTIVITIES PAIN IS DECREASED BY:OTHERS HEAT AND ICE BUT NOTHING REALLY HELPS NURSING NOTE: -. PAIN CENTER INTAKE QUESTIONS: DO YOU HAVE A HISTORY OF MRSA? :NO DO YOU TAKE A BLOOD THINNERS? :NO DO YOU HAVE ANY BLEEDING DISORDERS? :NO ANY NEW NUMBNESS OR WEAKNESS IN YOUR LEGS OR ARMS? :NO ANY PACEMAKER,DEFIBRILLATOR, OR DORSAL COLUMN STIMULATOR? :NO DO YOU HAVE ANY RASHES OR OPEN SORES? :NO ARE YOU ALLERGIC TO IV DYE? :NO ARE YOU DIABETIC? :YES ANY NEW PROBLEMS WITH YOUR MEDICATIONS? :NO HAVE YOU RECEIVED A VACCINE IN THE PAST 30 DAYS? :NO DO YOU PLAN TO RECEIVE A VACCINE IN THE NEXT 21 DAYS? :NO DO YOU NEED ANY PRESCRIPTION? :NO DO YOU TAKE ANY IMMUNOSUPPRESSIVE MEDICATIONS? :NO IS THERE A CHANCE YOU COULD BE ? :NO ARE YOU BREAST FEEDING? :NO CURRENT MEDICATIONS TAKING STEGLATRO 15 MG TABLET 1 TABLET ORALLY ONCE A DAY TAKING METFORMIN HCL 1000 MG TABLET 1 TABLET WITH MEALS ORALLY TWICE DAILY TAKING METOPROLOL TARTRATE 100 MG TABLET 1 TABLET WITH FOOD ORALLY TWICE A DAY TAKING LISINOPRIL 20 MG TABLET TAKE ONE TABLET BY MOUTH EVERY DAY ORALLY DAILY, NOTES: LAST DOSE 07-06-2020 TAKING BUPROPION HCL ER (SR) 150 MG TABLET EXTENDED RELEASE 12 HOUR 1 TABLET ORALLY TWICE A DAY TAKING FLONASE 50 MCG/ACT SUSPENSION 1 SPRAY IN EACH NOSTRIL NASALLY ONCE A DAY NEEDED TAKING BLOOD GLUCOSE METER - KIT 1 METER DX:E11. TWICE DAILY TAKING BD LANCET ULTRAFINE 33G - MISCELLANEOUS 1 LANCET INTRADERMALLY TWICE DAILY DX:E11. TAKING ALCOHOL PREP PAD 70 % PAD 1 TOPICALLY TWICE DAILY DX: TAKING COMPRESSION STOCKINGS 15-20 MMHG DIRECTED DX: I87.2 DAILY TAKING CLONAZEPAM 0.5 MG TABLET 1 TABLET AT BEDTIME ORALLY ONCE A DAY TAKING PRAZOSIN HCL 5 MG CAPSULE 1 CAPSULE AT BEDTIME ORALLY ONCE A DAY TAKING BLOOD GLUCOSE TEST STRIP - STRIP 1 STRIP IN VITRO DX:E11. TWICE DAILY TAKING HOME STYLE BED RAILS - MISCELLANEOUS DIRECTED [facility] # [id number] USE UNDER THE BED RAILS EVERY NIGHT TO PREVENT FALLING OUT OF BED TAKING SPIRONOLACTONE 25 MG TABLET 1 TABLET ORALLY ONCE A DAY TAKING IBUPROFEN 600 MG TABLET 1 TABLET WITH FOOD OR MILK NEEDED ORALLY Q8H PRN TAKING ZYRTEC ALLERGY 10 MG TABLET 1 TABLET ORALLY ONCE A DAY NEEDED TAKING LYRICA 300 MG CAPSULE 1 CAPSULE ORALLY BID TAKING MOBIC 15 MG TABLET 1 TABLET ORALLY ONCE A DAY TAKING AMLODIPINE BESYLATE 10 MG TABLET 1 TABLET ORALLY ONCE A DAY TAKING ATORVASTATIN CALCIUM 80 MG TABLET TAKE 1 TABLET BY MOUTH ONCE A DAY TAKING OMEPRAZOLE 20 MG CAPSULE DELAYED RELEASE 1 CAPSULE ORALLY BEFORE BEDTIME TAKING TIZANIDINE HCL 4 MG TABLET 1 TABLET NEEDED ORALLY NEEDED FOR SPASMS AND PAIN BEFORE BEDTIME MEDICATION LIST REVIEWED AND RECONCILED WITH THE PATIENT PAST MEDICAL HISTORY HTN SHORT''S PALSY UNSPECIFIED ESSENTIAL HYPERTENSION NONDEPENDENT TOBACCO USE DISORDER SMOKING MIGRAINE WITHOUT AURA, WITH INTRACTABLE MIGRAINE, SO STATED, WITHOUT MENTION OF STATUS MIGRAINOSUS ALLERGIC CONJUNCTIVITIS HYPERLIPIDEMIA ESSENTIAL HYPERTENSION ASCVD10 (2016)- 11.5% DIEBETIC TYPE 2 EPIDIDYMITIS HX OF HEPATITIS C CHRONIC WITH LIVER CIRRHOSIS TREATED WITH 12 WEEKS MAVYRET HEP C IS CURED HYPERLIPIDEMIA CERVICALGIA PTSD SACROILIITIS HERPESVIRAL INFECTION OF UROGENITAL SYSTEM BALANITIS LUMBAR SPONDYLOSIS PIRIFORMIS MUSCLE PAIN GALLLBLADDER REMOVES NECK PAIN ALLERGIES ASPIR-81: VOMITING - SIDE EFFECTS GLIMEPIRIDE: SIDE EFFECTS SOCIAL HISTORY GENERAL: TOBACCO USE ARE YOU A:FORMER SMOKER HOW LONG HAS IT BEEN SINCE YOU LAST SMOKED?1-5 YEARS SMOKING CESSATION INFORMATION GIVEN04/01/2019 LATEX QUESTIONNAIRE LATEX ALLERGY : HAVE YOU EVER DEVELOPED ANY TYPE OF REACTION AFTER HANDLING LATEX PRODUCTS SUCH RUBBER GLOVES, CONDOMS, DIAPHRAGMS, BALLOONS, SOCKS, OR UNDERWEAR?NO LATEX ALLERGY : HAVE YOU EVER DEVELOPED ANY TYPE OF REACTION DURING OR AFTER DENTAL APPOINTMENT, VAGINAL/RECTAL EXAMINATION, SURGICAL PROCEDURE, OR ANY OTHER EXPOSURE?NO LATEX RISK : HAVE YOU EVER HAD ANY DIFFICULTY BREATHING OR HIVES AFTER EATING OR HANDLING ANY FRUITS, OR VEGETABLES; SUCH KIWI, BANANAS, STONE FRUITS, OR CHESTNUTSNO LATEX RISK : DO YOU HAVE A PREVIOUS PERSONAL HISTORY OF MORE THAN NINE SURGERIES, SPINA BIFIDA, OR REPEATED CATHERIZATIONS? NO LATEX RISK : ARE YOU FREQUENTLY EXPOSED TO LATEX PRODUCTS IN YOUR OCCUPATION?NO DATE ASKED : 10/23/2020 ALCOHOL USE: NO. BMI CARE GOAL FOLLOW-UP ABOVE NORMAL BMI FOLLOW-UPLIFESTYLE EDUCATION REGARDING DIET ALCOHOL SCREENING DID YOU HAVE A DRINK CONTAINING ALCOHOL IN THE PAST YEAR?NO POINTS0 INTERPRETATIONNEGATIVE RECREATIONAL DRUG USE DRUG USE?NO CAFFEINE CAFFEINE USE?YES HOW OFTEN AND HOW MUCH? COFFEE 1/DAY TEA 2-3/DAY SEXUAL HX HAD SEX IN THE LAST 12 MONTHS (VAGINAL, ORAL, OR ANAL)?YES WITHWOMEN ONLY PREVENTION STRATEGIES DISCUSSED:CONDOMS USE PROTECTION?NO HAVE YOU EVER HAD AN STD?NO HIV / HEP-C SCREENING HIV TEST OFFERED TO PATIENT:YES DATE OFFERED:10/06/2016 TEST ACCEPTED:NO HEP-C TEST OFFERED TO PATIENT:YES DATE OFFERED:10/06/2016 REASON:PATIENT DECLINED TEST ACCEPTED:NO REASON:PATIENT DECLINED [employer] [id number]. 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 DIET: REGULAR. EXERCISE: NO REGULAR EXERCISE. MARITAL STATUS: SINGLE. OTHERS AT HOME: GIRLFRIEND. - PFS REFERRAL NEEDED?NO CLERGY REFERRAL NEEDED?NO PUBLIC HEALTH REFERRAL NEEDED?NO HAS THE PATIENT BEEN EDUCATED REGARDING HIS/HER PLAN OF CARE?YES HAS THE PATIENT BEEN EDUCATED REGARDING PAIN, THE RISK FOR PAIN, THE IMPORTANCE OF EFFECTIVE PAIN MANAGEMENT, AND THE PAIN ASSESSMENT PROCESS?YES ADVANCE DIRECTIVE ADVANCE DIRECTIVE DISCUSSED WITH PATIENT:YES 05/07/2020 PT STATES HCP IS TANNER PERERA - DAUGHTER [phone] REVIEW OF SYSTEMS CONSTITUTIONAL: ANY RECENT FEVER NO . CHILLS NO . WEIGHT CHANGE OF UNKNOWN REASONS NO . GASTROENTEROLOGY: NEW UNEXPLAINABLE CHANGES IN BOWEL CONTROL NO . CONSTIPATION NO . GENITOURINARY: ANY NEW CHANGE IN BLADDER CONTROL? NO . NEUROLOGY: NEW ONSET DIZZINESS OR NEUROLOGICAL CHANGES NOT MENTIONED NO . NEW NUMBNESS OR PAIN PATTERNS NOT MENTIONED AND PERTINENT TO TODAY'S VISIT NO . CARDIOLOGY: NEW CHEST PRESSURE NO . PATIENT DENIES NO . RESPIRATORY: UNEXPLAINABLE COUGH NO . NEW SHORTNESS OF BREATH NO . VITAL SIGNS WT 186 LBS, HT 66 IN, BMI 30.02 INDEX, BP 124/71 MM HG, HR 61 /MIN, RR 18 /MIN, TEMP 97.0 F, OXYGEN SAT % 91%, SAFE IN ENV? (Y/N) YES, NA INITIALS CO 09:46T.JO [place]. EXAMINATION GENERAL EXAMINATION: GENERALAWAKE,ALERT ,PLEASANT . PSYCHAFFECT NORMAL . LUNGS:LUNG SCHNEIDER ARE CLEAR TO AUSCULTATION BILATERALLY. GOOD MOVEMENT OF AIR . HEART:S1, S2 IN A REGULAR RATE AND RHYTHM. NO SIGNIFICANT MURMURS, RUBS OR GALLOPS NOTED . ASSESSMENTS SACROILIITIS, NOT ELSEWHERE CLASSIFIED - M46.1 (PRIMARY) TREATMENT SACROILIITIS, NOT ELSEWHERE CLASSIFIED CONTINUE LYRICA CAPSULE, 300 MG, 1 CAPSULE, ORALLY, BID CONTINUE MOBIC TABLET, 15 MG, 1 TABLET, ORALLY, ONCE A DAY CONTINUE TIZANIDINE HCL TABLET, 4 MG, 1 TABLET NEEDED, ORALLY NEEDED FOR SPASMS AND PAIN, BEFORE BEDTIME PROCEDURE CODES FA211 ESTABILISHED PATIENT [facility] CHARGE DISPOSITION & COMMUNICATION FOLLOW UP 3 MONTHS (REASON: MED MGMNT/NECK/ANS LBP) ELECTRONICALLY SIGNED BY BARBARA HEARD ON 10/26/2020 AT 08:47 PM EDT DISCLAIMER : THIS IS A VISIT SUMMARY EXTRACTED FROM THE [employer] CHART. IT IS NOT A COPY OF THE [employer] PROGRESS NOTE. DARLIN
== END ==
LOC: M PAIN 09:30
PROVIDERS: ATTEND Nurse Practitioner Family
DX: M46.1 Sacroiliitis, not elsewhere classified (principal); G89.29 Other chronic pain; E11.9 Type 2 diabetes mellitus without complications; G43.909 Migraine, unspecified, not intractable, without status migrainosus; Z86.59 Personal history of other mental and behavioral disorders; Z87.891 Personal history of nicotine dependence; Z88.6 Allergy status to analgesic agent; Z88.8 Allergy status to other drugs, medicaments and biological substances; Z79.84 Long term (current) use of oral hypoglycemic drugs; Z79.899 Other long term (current) drug therapy

== ENCOUNTER → 2020-10-26 | Outpatient (CLI) | payer OTHER ==
[2020-10-26 18:54] LABS: CHOLESTEROL LEVEL 117 MG/DL (<200); CHOLESTEROL RISK RATIO 5.571 (<5); HDL CHOLESTEROL 21 MG/DL (>40); NON-HDL-C 96 MG/DL; TRIGLYCERIDES LEVEL 682 MG/DL (<150)
[2020-10-26 19:33] LABS: HEMOGLOBIN A1c 5.5 %
== END ==
LOC: M LAB 17:06
PROVIDERS: ATTEND Family Medicine
DX: E11.42 Type 2 diabetes mellitus with diabetic polyneuropathy (principal)

== ENCOUNTER → 2020-10-28 | Outpatient (REF) | payer OTHER ==
[2020-10-28 16:51] LABS: CREATININE, URINE 72.8 MG/DL; MALB URINE SIEMENS 10.2 MG/L
== END ==
LOC: M SFHCPLAZ 15:41
PROVIDERS: ATTEND Family Medicine
DX: E11.42 Type 2 diabetes mellitus with diabetic polyneuropathy (principal)

== ENCOUNTER → 2021-02-03 | Outpatient (CLI) | payer MEDICARE | LOC: M PAIN 10:00 | PROVIDERS: ATTEND Anesthesiology | DX: M46.1 Sacroiliitis, not elsewhere classified (principal); M54.81 Occipital neuralgia; E11.9 Type 2 diabetes mellitus without complications; G43.909 Migraine, unspecified, not intractable, without status migrainosus; Z86.59 Personal history of other mental and behavioral disorders; Z87.891 Personal history of nicotine dependence; Z88.6 Allergy status to analgesic agent; Z79.84 Long term (current) use of oral hypoglycemic drugs; Z79.899 Other long term (current) drug therapy ==

== ENCOUNTER → 2021-02-18 | Outpatient (CLI) | payer MEDICARE ==
--- NOTE | 2021-02-18 15:28 | REP ---
INDICATION: ANESTHESIA OF SKINANESTHESIA OF SKIN. COMPARISON: Comparison lumbar spine radiographs are from April 08, 2016. TECHNIQUE: Six views of the lumbar spine are provided. FINDINGS: Lumbar vertebral body heights are preserved. Alignment is normal. Disc spaces are maintained. There is mild degenerative discogenic spurring at L4-5 and L3-4 anteriorly. Vascular calcification is noted in a nonaneurysmal abdominal aorta. Pedicles and posterior elements are intact. Psoas margins are symmetric. Sacrum and SI joints are unremarkable. IMPRESSION: Mild degenerative disc disease changes as noted above. No acute bony abnormality. <Electronically signed by Wilbur Laureano > 02/18/21 [id number]
--- NOTE | 2021-02-18 15:29 | REP ---
INDICATION: ANESTHESIA OF SKINANESTHESIA OF SKIN. COMPARISON: Comparison bilateral hip radiographs are from June 02, 2017. TECHNIQUE: AP and frogleg views of each hip are provided. Four views total. FINDINGS: The femoral heads are smooth and rounded hip joint spaces are preserved bilaterally. There is minimal superior acetabular spurring. Mild vascular calcification is seen. No bony erosive changes seen. IMPRESSION: Minimal superior acetabular spurring bilaterally. No acute abnormality. <Electronically signed by Wilbur Laureano > 02/18/21 [id number]
== END ==
LOC: M PLAIMG 14:50
PROVIDERS: ATTEND Physician Assistant
DX: R20.0 Anesthesia of skin (principal); M25.551 Pain in right hip; M25.552 Pain in left hip; M51.36 Other intervertebral disc degeneration, lumbar region

== ENCOUNTER → 2021-03-03 | Outpatient (CLI) | payer MEDICARE | LOC: M LABSMTC 09:59 | PROVIDERS: ATTEND Anesthesiology | DX: Z20.822 Contact with and (suspected) exposure to COVID-19 (principal) ==

== ENCOUNTER → 2021-04-01 | Outpatient (REF) | payer MEDICARE | LOC: M SFHCPLAZ 09:03 | PROVIDERS: ATTEND Family Medicine | DX: Z53.9 Procedure and treatment not carried out, unspecified reason (principal); E11.42 Type 2 diabetes mellitus with diabetic polyneuropathy ==

== ENCOUNTER → 2021-04-01 | Outpatient (CLI) | payer MEDICARE | LOC: M LABSMTC 09:23 | PROVIDERS: ATTEND Anesthesiology | DX: Z11.52 Encounter for screening for COVID-19 (principal); Z20.822 Contact with and (suspected) exposure to COVID-19; R42 Dizziness and giddiness; I10 Essential (primary) hypertension; R19.7 Diarrhea, unspecified; R20.0 Anesthesia of skin; E11.42 Type 2 diabetes mellitus with diabetic polyneuropathy; K74.60 Unspecified cirrhosis of liver; F43.10 Post-traumatic stress disorder, unspecified; Z23 Encounter for immunization; Z12.11 Encounter for screening for malignant neoplasm of colon; Z12.2 Encounter for screening for malignant neoplasm of respiratory organs | CPT/HCPCS: 90682; G0008; G0463; U0003 ==

== ENCOUNTER → 2021-04-06 | Outpatient (CLI) | payer MEDICARE ==
[~2021-04-06] MED LIST changes: +BUPIVACAINE HCL 0.25% 10ML VIAL As Ordered ONE; +BUPIVACAINE HCL 0.25% 30ML VIAL As Ordered ONE; +TRIAMCINOLONE ACETONIDE SUSP 40 MG/ML VIAL (J3301) As Ordered ONE; +diazePAM 5MG TABLET As Ordered ONE; +oxyCODONE 5MG TAB As Ordered ONE
== END ==
LOC: M PAIN 10:20
PROVIDERS: ATTEND Anesthesiology
DX: M54.81 Occipital neuralgia (principal); E11.9 Type 2 diabetes mellitus without complications; G43.909 Migraine, unspecified, not intractable, without status migrainosus; Z86.59 Personal history of other mental and behavioral disorders; Z87.891 Personal history of nicotine dependence; Z88.6 Allergy status to analgesic agent; Z79.84 Long term (current) use of oral hypoglycemic drugs; Z79.899 Other long term (current) drug therapy
CPT/HCPCS: 64405; J3301

== ENCOUNTER → 2021-04-23 | Outpatient (CLI) | payer MEDICARE ==
[~2021-04-23] MED LIST changes: -BUPIVACAINE HCL 0.25% 10ML VIAL As Ordered ONE; -BUPIVACAINE HCL 0.25% 30ML VIAL As Ordered ONE; -TRIAMCINOLONE ACETONIDE SUSP 40 MG/ML VIAL (J3301) As Ordered ONE; -diazePAM 5MG TABLET As Ordered ONE; -oxyCODONE 5MG TAB As Ordered ONE
--- NOTE | 2021-04-23 15:17 | REP ---
INDICATION: LUNG CA SCREENING. COMPARISON: Multiple the latest 02/26/2020 also low-dose screening CT of the lungs TECHNIQUE: Axial noncontrast images from the thoracic inlet to the upper abdomen using low-dose lung screening technique (LDCT). As per the protocol only lung window images were sent to the read station for interpretation FINDINGS: There are no new abnormal nodules, masses, or opacities. Grossly, the mediastinum and pulmonary silvia are stable. Grossly, the imaged upper abdomen and imaged osseous structures stable. IMPRESSION: Stable lung rads category 2 low-dose screening CT examination of the lungs. Follow-up as per the revised Fleischner society criteria. <Electronically signed by Elijah Acevedo > 04/23/21 [id number]
== END ==
LOC: M RAD 14:29
PROVIDERS: ATTEND Family Medicine
DX: Z12.2 Encounter for screening for malignant neoplasm of respiratory organs (principal)

== ENCOUNTER → 2021-04-27 | Outpatient (CLI) | payer MEDICARE | LOC: M PAIN 13:45 | PROVIDERS: ATTEND Anesthesiology | DX: M46.1 Sacroiliitis, not elsewhere classified (principal); G89.29 Other chronic pain; E11.9 Type 2 diabetes mellitus without complications; G43.909 Migraine, unspecified, not intractable, without status migrainosus; Z87.891 Personal history of nicotine dependence; Z88.6 Allergy status to analgesic agent; Z79.84 Long term (current) use of oral hypoglycemic drugs; Z79.899 Other long term (current) drug therapy ==

== ENCOUNTER → 2021-04-29 | Outpatient (CLI) | payer MEDICARE ==
[2021-04-29 16:22] LABS: CHOLESTEROL RISK RATIO 3.483 (<5)
[2021-04-29 18:29] LABS: HEMOGLOBIN A1c 5.6 %
== END ==
LOC: M LAB 13:04
PROVIDERS: ATTEND Family Medicine
DX: E11.42 Type 2 diabetes mellitus with diabetic polyneuropathy (principal)

== ENCOUNTER → 2021-05-18 | Outpatient (CLI) | payer MEDICARE ==
[~2021-05-18] MED LIST changes: +TIZA10TA PO; -TIZA4TAB4 PO
== END ==
LOC: M PLAIMG 12:07
PROVIDERS: ATTEND Anesthesiology
DX: M46.1 Sacroiliitis, not elsewhere classified (principal)

== ENCOUNTER → 2021-05-27 | Outpatient (CLI) | payer MEDICARE ==
[~2021-05-27] MED LIST changes: -TIZA10TA PO; +TIZA4TAB4 PO
--- NOTE | 2021-05-27 09:51 | REP ---
INDICATION: CIRRHOSIS COMPARISON: 07/27/2020 TECHNIQUE: Real time selby scale ultrasound examination using curved array transducer. FINDINGS: Liver demonstrates coarsened echotexture with increased echogenicity. No focal hepatic lesions are identified. Pancreas is incompletely evaluated due to interposed bowel gas. The gallbladder is surgically absent. No biliary ductal dilatation is appreciated and the common bile duct measures 6.0 mm diameter. Right kidney is normal in reniform shape without hydronephrosis and measures 10.6 x 5.3 x 4.5 cm. No ascites in the visualized right upper quadrant. IMPRESSION: Hepatocellular disease. No focal hepatic lesion identified. <Electronically signed by Dinesh Sanchez > 05/27/21 0999
== END ==
LOC: M RAD 09:12
PROVIDERS: ATTEND Family Medicine
DX: K74.60 Unspecified cirrhosis of liver (principal)

== ENCOUNTER → 2021-06-28 | Outpatient (REF) | payer MEDICARE ==
[~2021-06-28] MED LIST changes: +TIZA10TA PO; -TIZA4TAB4 PO
== END ==
LOC: M SFHCPLAZ 14:21
PROVIDERS: ATTEND Family Medicine
DX: E11.42 Type 2 diabetes mellitus with diabetic polyneuropathy (principal)

== ENCOUNTER → 2021-07-10 | Outpatient (CLI) | payer MEDICARE ==
[2021-07-10 15:03] LABS: HEMOGLOBIN A1c 5.5 %
== END ==
LOC: M LAB 13:45
PROVIDERS: ATTEND Family Medicine
DX: E11.42 Type 2 diabetes mellitus with diabetic polyneuropathy (principal)

== ENCOUNTER → 2021-08-27 | Outpatient (CLI) | payer MEDICARE, MEDICAID | LOC: M PAIN 11:00 | PROVIDERS: ATTEND Anesthesiology | DX: M53.3 Sacrococcygeal disorders, not elsewhere classified (principal); G89.29 Other chronic pain; E11.9 Type 2 diabetes mellitus without complications; G43.909 Migraine, unspecified, not intractable, without status migrainosus; Z86.59 Personal history of other mental and behavioral disorders; Z88.6 Allergy status to analgesic agent; Z79.84 Long term (current) use of oral hypoglycemic drugs; Z79.899 Other long term (current) drug therapy ==

== ENCOUNTER → 2021-10-21 | Outpatient (CLI) | payer MEDICARE, MEDICAID ==
[~2021-10-21] MED LIST changes: +BUPR-71 PO; -BUPR150T5 PO
== END ==
LOC: M PLAIMG 11:11
PROVIDERS: ATTEND Anesthesiology
DX: M53.3 Sacrococcygeal disorders, not elsewhere classified (principal)

== ENCOUNTER → 2021-11-22 | Outpatient (CLI) | payer MEDICARE, MEDICAID | LOC: M PLALAB 15:29 | PROVIDERS: ATTEND Family Medicine | DX: R97.20 Elevated prostate specific antigen [PSA] (principal) ==

== ENCOUNTER → 2021-11-22 | Outpatient (REF) | payer MEDICARE, MEDICAID | LOC: M SFHCPLAZ 15:19 | PROVIDERS: ATTEND Family Medicine | DX: R97.20 Elevated prostate specific antigen [PSA] (principal) ==

== ENCOUNTER → 2021-11-30 | Outpatient (CLI) | payer MEDICARE, MEDICAID | LOC: M PLALAB 13:02 | PROVIDERS: ATTEND Family Medicine | DX: R97.20 Elevated prostate specific antigen [PSA] (principal) ==

== ENCOUNTER → 2021-11-30 | Outpatient (REF) | payer MEDICARE, MEDICAID ==
[2021-11-30 13:24] LABS: APPEARANCE, URINE CLEAR (CLEAR); BACTERIA, URINE AUTO NEGATIVE (NEGATIVE); BILIRUBIN, URINE AUTO NEGATIVE (NEGATIVE); BLOOD, URINE BLOOD NEGATIVE (NEGATIVE); COLOR, URINE YELLOW (YELLOW); GLUCOSE, URINE (UA) AUTO 3+ mg/dL (NEGATIVE); KETONE, URINE AUTO NEGATIVE (NEGATIVE); LEUKOCYTE ESTERASE, URINE AUTO NEGATIVE (NEGATIVE); MUCUS, URINE SMALL (NEGATIVE); NITRITE, URINE AUTO NEGATIVE (NEGATIVE); PROTEIN, URINE AUTO NEGATIVE (NEGATIVE); RBC, URINE AUTO 0 /HPF (0-3); SPECIFIC GRAVITY URINE AUTO 1.027 (1.002-1.035); SQUAMOUS EPITHELIAL CELL UR AU 0 /HPF (0-6); UROBILINOGEN, URINE AUTO 0.2 mg/dL (0.0-2.0); WBC, URINE AUTO 0 /HPF (0-3)
== END ==
LOC: M SMT 12:47
PROVIDERS: ATTEND Urology
DX: N39.41 Urge incontinence (principal)

== ENCOUNTER → 2022-01-03 | Outpatient (CLI) | payer MEDICARE, MEDICAID | LOC: M LABSMTC 09:51 | PROVIDERS: ATTEND Anesthesiology | DX: Z11.52 Encounter for screening for COVID-19 (principal) ==

== ENCOUNTER → 2022-01-06 | Outpatient (CLI) | payer MEDICARE, MEDICAID ==
[~2022-01-06] MED LIST changes: +BUPIVACAINE HCL 0.25% 30ML VIAL As Ordered ONE; +ISOVUE-M 300 61% 15ML VIAL As Ordered ONE; +LIDOCAINE 1% SDV 30ML VIAL As Ordered ONE; +TRIAMCINOLONE ACETONIDE SUSP 40 MG/ML VIAL (J3301) As Ordered ONE; +diazePAM 5MG TABLET As Ordered ONE; +oxyCODONE 5MG TAB As Ordered ONE
== END ==
LOC: M PAIN 08:30
PROVIDERS: ATTEND Anesthesiology
DX: M46.1 Sacroiliitis, not elsewhere classified (principal); G89.29 Other chronic pain; E11.9 Type 2 diabetes mellitus without complications; G43.909 Migraine, unspecified, not intractable, without status migrainosus; Z86.59 Personal history of other mental and behavioral disorders; Z87.891 Personal history of nicotine dependence; Z88.6 Allergy status to analgesic agent; Z79.84 Long term (current) use of oral hypoglycemic drugs; Z79.899 Other long term (current) drug therapy
CPT/HCPCS: G0260; J3301; Q9967

== ENCOUNTER 2022-02-08 16:01 | Emergency (ER) | payer MEDICARE, MEDICAID ==
[~2022-02-08] VITALS: Ht 170.2 cm; Wt 85.0 kg
[~2022-02-08 16:01] MED LIST changes: -AMLO25TA PO; -VALS1TAB68 PO
[2022-02-08 16:04] VITALS: BP 172/92
[2022-02-09] MEDS ORDERED: VALS1TAB68 PO (17:20)
[2022-02-09] MEDS ORDERED: AMLO25TA PO (17:20)
== END 2022-02-08 20:58 | disposition left against medical advice (07) ==
LOC: M ED 20:56
DX: Z53.21 Procedure and treatment not carried out due to patient leaving prior to being seen by health care provider (principal)

== ENCOUNTER → 2022-02-08 | Outpatient (CLI) | payer MEDICARE, MEDICAID ==
[~2022-02-08] MED LIST changes: +AMLO25TA PO; -BUPIVACAINE HCL 0.25% 30ML VIAL As Ordered ONE; -ISOVUE-M 300 61% 15ML VIAL As Ordered ONE; -LIDOCAINE 1% SDV 30ML VIAL As Ordered ONE; -TRIAMCINOLONE ACETONIDE SUSP 40 MG/ML VIAL (J3301) As Ordered ONE; +VALS1TAB68 PO; -diazePAM 5MG TABLET As Ordered ONE; -oxyCODONE 5MG TAB As Ordered ONE
== END ==
LOC: M PAIN 14:15
PROVIDERS: ATTEND Nurse Practitioner Family
DX: M46.1 Sacroiliitis, not elsewhere classified (principal); G89.29 Other chronic pain; E11.9 Type 2 diabetes mellitus without complications; I10 Essential (primary) hypertension; G43.909 Migraine, unspecified, not intractable, without status migrainosus; Z86.59 Personal history of other mental and behavioral disorders; Z87.891 Personal history of nicotine dependence; Z88.6 Allergy status to analgesic agent; Z79.84 Long term (current) use of oral hypoglycemic drugs; Z79.899 Other long term (current) drug therapy

== ENCOUNTER 2022-02-09 09:54 | Emergency (ER) | payer MEDICARE, MEDICAID ==
[~2022-02-09] VITALS: Ht 170.2 cm; Wt 84.1 kg
[2022-02-09 12:23] LABS: BASO % 0.2 % (0.0-1.0); EOS # 0.3 10^3/uL (0.0-0.5); EOS % 3.1 % (0.0-3.0); HEMATOCRIT 50.4 % (42.0-52.0); HEMOGLOBIN 16.5 g/dl (13.5-17.5); LYMPH % 23.9 % (24.0-44.0); MEAN CORPUSCULAR HEMOGLOBIN 31.8 pg (27.0-33.0); MEAN CORPUSCULAR HGB CONC 32.7 g/dl (32.0-36.5); MEAN CORPUSCULAR VOLUME 97.1 fl (80.0-96.0); MONO # 0.8 10^3/uL (0.0-0.8); MONO % 9.6 % (2.0-8.0); NEUTROPHILS # 5.3 10^3/uL (1.5-8.5); NEUTROPHILS % 62.6 % (36.0-66.0); PLATELET COUNT, AUTOMATED 130 10^3/uL (150-450); RED BLOOD COUNT 5.19 10^6/uL (4.30-6.10); WHITE BLOOD COUNT 8.5 10^3/uL (4.0-10.0)
[2022-02-09 12:35] LABS: INR 0.99; PROTHROMBIN TIME 13.5 SECONDS (12.7-14.5)
[2022-02-09 12:38] LABS: ALBUMIN 4.2 GM/DL (3.2-5.2); ALT/SGPT 55 U/L (12-78); BILIRUBIN,DIRECT 0.2 MG/DL (0.0-0.2); BILIRUBIN,TOTAL 0.9 MG/DL (0.2-1.0); BLOOD UREA NITROGEN 19 MG/DL (7-18); CALCIUM LEVEL 10.3 MG/DL (8.8-10.2); CARBON DIOXIDE LEVEL 25 MEQ/L (21-32); CHLORIDE LEVEL 104 MEQ/L (98-107); CREATININE FOR GFR 1.25 MG/DL (0.70-1.30); GLOMERULAR FILTRATION RATE > 60.0 (>49); GLUCOSE, FASTING 125 MG/DL (70-100); LIPASE 156 U/L (73-393); POTASSIUM SERUM 4.6 MEQ/L (3.5-5.1); SODIUM LEVEL 136 MEQ/L (136-145)
[2022-02-09] MEDS ORDERED: ISOVUE-370 76% 100ML VIAL As Ordered ONE (12:48)
[2022-02-09 13:11] LABS: ERYTHROCYTE SEDIMENTATION RATE 7 mm/hr (0-20)
[2022-02-09] MEDS ORDERED: MORPHINE 2 MG/ML 1ML VIAL IV ONE (13:30)
[2022-02-09 13:41] LABS: CK-MB VALUE MASS 2.1 NG/ML (<3.6); MB/CK RELATIVE INDEX 1.52 (< OR =4)
[2022-02-09 13:52] LABS: AMPHETAMINES LEVEL URINE NEGATIVE (NEGATIVE); BARBITURATES URINE NEGATIVE (NEGATIVE); BENZODIAZEPINES URINE NEGATIVE (NEGATIVE); CANNABINOIDS URINE NEGATIVE (NEGATIVE); COCAINE METABOLITE URINE NEGATIVE (NEGATIVE); METHADONE URINE NEGATIVE (NEGATIVE); OPIATES URINE NEGATIVE (NEGATIVE); PHENCYCLIDINE URINE NEGATIVE (NEGATIVE)
[2022-02-09] MEDS ORDERED: MIDAZOLAM INJ 2MG/2ML VIAL (J2250 PER 1MG) IV STA (14:00)
[2022-02-09] MEDS ORDERED: amLODIPine 5 MG TAB PO ONE (15:20)
[2022-02-09] MEDS ORDERED: VALSARTAN 80 MG TAB (DIOVAN) PO ONE (15:20)
[2022-02-09 15:38] VITALS: BP 190/99
[2022-02-09] MEDS ORDERED: NS 1,000 ML IV ONE (15:45)
[2022-02-09] MEDS ORDERED: VALS1TAB68 PO (17:20)
[2022-02-09] MEDS ORDERED: AMLO25TA PO (17:20)
[2022-02-09 17:26] VITALS: BP 173/97
== END 2022-02-09 17:41 | disposition home or self-care (01) ==
LOC: M ED 09:54
DX: E87.6 Hypokalemia (principal); F41.9 Anxiety disorder, unspecified; R51.9 Headache, unspecified; R41.0 Disorientation, unspecified; E11.9 Type 2 diabetes mellitus without complications; I10 Essential (primary) hypertension; G47.00 Insomnia, unspecified; F32.9 Major depressive disorder, single episode, unspecified; Z79.84 Long term (current) use of oral hypoglycemic drugs; Z79.899 Other long term (current) drug therapy; Z88.8 Allergy status to other drugs, medicaments and biological substances
CPT/HCPCS: 70450; 70496; 70498; 70551; 71046; 72131; 80048; 80076; 80307; 82550; 82553; 83605; 83690; 84484; 85025; 85610; 85652; 86140; 87040; 87077; 87186; 87486; 87581; 87633; 87798; 93005; 96361; 96374; 96375; 99285; J2250; J2270; Q9967

== ENCOUNTER → 2022-03-18 | Outpatient (CLI) | payer MEDICARE, MEDICAID ==
[~2022-03-18] MED LIST changes: +AMLO25TA PO; +VALS1TAB68 PO
== END ==
LOC: M PAIN 15:45 → M TMPAIN 15:45
PROVIDERS: ATTEND Anesthesiology
DX: M79.18 Myalgia, other site (principal); M54.81 Occipital neuralgia; G89.29 Other chronic pain; E11.9 Type 2 diabetes mellitus without complications; I10 Essential (primary) hypertension; G43.909 Migraine, unspecified, not intractable, without status migrainosus; Z86.59 Personal history of other mental and behavioral disorders; Z87.891 Personal history of nicotine dependence; Z88.6 Allergy status to analgesic agent; Z79.84 Long term (current) use of oral hypoglycemic drugs; Z79.899 Other long term (current) drug therapy

== ENCOUNTER → 2022-03-22 | Outpatient (CLI) | payer MEDICARE, MEDICAID ==
[2022-03-22 15:57] LABS: HEMATOCRIT 49.4 % (42.0-52.0); HEMOGLOBIN 16.8 g/dl (13.5-17.5); MEAN CORPUSCULAR HEMOGLOBIN 32.4 pg (27.0-33.0); MEAN CORPUSCULAR VOLUME 95.4 fl (80.0-96.0); PLATELET COUNT, AUTOMATED 130 10^3/uL (150-450); RED BLOOD COUNT 5.18 10^6/uL (4.30-6.10); WHITE BLOOD COUNT 8.4 10^3/uL (4.0-10.0)
== END ==
LOC: M PLALAB 13:09
PROVIDERS: ATTEND Family Medicine
DX: G11.9 Hereditary ataxia, unspecified (principal)

== ENCOUNTER → 2022-05-02 | Outpatient (CLI) | payer MEDICARE, MEDICAID ==
[~2022-05-02] MED LIST changes: +ALBU8.5H INH; +CLON1TAB8 PO; +JARD1TAB PO; +MECL25CH45 PO; +MYRB25TA PO; +OMEP-173 PO; +ONDA-83 PO; +PRAZ5CAP PO
== END ==
LOC: M LABSMTC 10:41
PROVIDERS: ATTEND Anesthesiology
DX: Z01.812 Encounter for preprocedural laboratory examination (principal); Z11.52 Encounter for screening for COVID-19

== ENCOUNTER 2022-05-04 10:27 | Day surgery (SDC) | payer MEDICARE, MEDICAID ==
[~2022-05-04] VITALS: Ht 170.2 cm; Wt 83.9 kg
[~2022-05-04 10:27] MED LIST changes: +CEFUROXIME 1MG/0.1ML INTRACAMERAL INJ As Ordered ONE; +LIDOCAINE 1% 1ML PF SYRINGE (OR EYE CASES) As Ordered ONE
[2022-05-04] MEDS ORDERED: INSULIN LISPRO (NovoLOG) PER UNIT SC PRN (10:50)
[2022-05-04] MEDS ORDERED: MIDAZOLAM INJ 2MG/2ML VIAL (J2250 PER 1MG) As Ordered ONE (11:08)
[2022-05-04] MEDS ORDERED: fentaNYL 100 MCG/2 ML INJECTION As Ordered ONE (11:08)
[2022-05-04 12:10] VITALS: BP 137/88
[2022-05-04] MEDS ORDERED: PHENYLEPHRINE 2.5% OPHTH SOL 2ML OS SCH (12:15)
[2022-05-04] MEDS ORDERED: OFLOXACIN 0.3 % (OCUFLOX) OPTH SOL 5ML OS ONE (12:15)
[2022-05-04] MEDS ORDERED: CYCLOPENTOLATE 1% OPHTH SOLN 2 ML BTL OS SCH (12:15)
[2022-05-04] MEDS ORDERED: BSS IRRIG/VANCO(10MG)/TOBRA(5MG)/EPINEPH(1:1000-0.5CC)500ML BAG-ORONLY IR ONE (12:15)
[2022-05-04] MEDS ORDERED: LIDOCAINE 3.5 % 1ML OPHTH TOPICAL GEL OU ONE (12:15)
[2022-05-04] MEDS ORDERED: TROPICAMIDE 1% OPHTH SOLN 2ML OS SCH (12:15)
[2022-05-04] MEDS ORDERED: PHENYLEPHRINE HCL 10 % OPHTH. SOL 5ML OS PRN (12:15)
== END 2022-05-04 12:41 | disposition home or self-care (01) ==
LOC: M SDC 10:27
PROVIDERS: ATTEND Ophthalmology
DX: H25.12 Age-related nuclear cataract, left eye (principal); I10 Essential (primary) hypertension; E11.9 Type 2 diabetes mellitus without complications; E78.5 Hyperlipidemia, unspecified; B18.2 Chronic viral hepatitis C; Z79.84 Long term (current) use of oral hypoglycemic drugs; F41.9 Anxiety disorder, unspecified; F32.A Depression, unspecified; J44.9 Chronic obstructive pulmonary disease, unspecified; R60.0 Localized edema; K76.9 Liver disease, unspecified; Z87.891 Personal history of nicotine dependence; Z88.8 Allergy status to other drugs, medicaments and biological substances
CPT/HCPCS: 66984; J0697; J2250; J3010; V2632

== ENCOUNTER → 2022-05-11 | Outpatient (CLI) | payer MEDICARE, MEDICAID ==
[~2022-05-11] MED LIST changes: -CEFUROXIME 1MG/0.1ML INTRACAMERAL INJ As Ordered ONE; -LIDOCAINE 1% 1ML PF SYRINGE (OR EYE CASES) As Ordered ONE
== END ==
LOC: M LABSMTC 09:48
PROVIDERS: ATTEND Anesthesiology
DX: Z01.812 Encounter for preprocedural laboratory examination (principal); Z20.822 Contact with and (suspected) exposure to COVID-19

== ENCOUNTER → 2022-05-16 | Outpatient (CLI) | payer MEDICARE, MEDICAID ==
[~2022-05-16] MED LIST changes: +BUPIVACAINE HCL 0.25% 10ML VIAL As Ordered ONE; +BUPIVACAINE HCL 0.25% 30ML VIAL As Ordered ONE; +OXCA300T14 PO; +TRIAMCINOLONE ACETONIDE SUSP 40MG/ML 1ML VIAL As Ordered ONE; +diazePAM 5MG TABLET As Ordered ONE; +oxyCODONE 5MG TAB As Ordered ONE
== END ==
LOC: M PAIN 15:00
PROVIDERS: ATTEND Anesthesiology
DX: M79.18 Myalgia, other site (principal); G89.29 Other chronic pain; E11.9 Type 2 diabetes mellitus without complications; I10 Essential (primary) hypertension; G43.909 Migraine, unspecified, not intractable, without status migrainosus; Z86.59 Personal history of other mental and behavioral disorders; Z87.891 Personal history of nicotine dependence; Z88.6 Allergy status to analgesic agent; Z79.84 Long term (current) use of oral hypoglycemic drugs; Z79.899 Other long term (current) drug therapy; Z20.822 Contact with and (suspected) exposure to COVID-19
CPT/HCPCS: 20552; 87635; J3301

== ENCOUNTER → 2022-05-16 | Outpatient (CLI) | payer MEDICARE, MEDICAID ==
[~2022-05-16] MED LIST changes: -BUPIVACAINE HCL 0.25% 10ML VIAL As Ordered ONE; -BUPIVACAINE HCL 0.25% 30ML VIAL As Ordered ONE; -OXCA300T14 PO; -TRIAMCINOLONE ACETONIDE SUSP 40MG/ML 1ML VIAL As Ordered ONE; -diazePAM 5MG TABLET As Ordered ONE; -oxyCODONE 5MG TAB As Ordered ONE
== END ==
LOC: M LABSMTC 10:43
PROVIDERS: ATTEND Anesthesiology
DX: Z01.812 Encounter for preprocedural laboratory examination (principal); Z11.52 Encounter for screening for COVID-19

== ENCOUNTER 2022-05-18 07:30 | Day surgery (SDC) | payer MEDICARE, MEDICAID ==
[~2022-05-18] VITALS: Ht 170.2 cm; Wt 82.9 kg
[~2022-05-18 07:30] MED LIST changes: +BSS IRRIG/VANCO(10MG)/TOBRA(5MG)/EPINEPH(1:1000-0.5CC)500ML BAG-ORONLY IR ONE; +CYCLOPENTOLATE 1% OPHTH SOLN 2 ML BTL OD SCH; +LIDOCAINE 1% 1ML PF SYRINGE (OR EYE CASES) As Ordered ONE; +LIDOCAINE 1% SDV 5ML VIAL As Ordered ONE; +LIDOCAINE 3.5 % 1ML OPHTH TOPICAL GEL OU ONE; +OFLOXACIN 0.3 % (OCUFLOX) OPTH SOL 5ML OD ONE; +PHENYLEPHRINE 2.5% OPHTH SOL 2ML OD SCH; +PHENYLEPHRINE HCL 10 % OPHTH. SOL 5ML OD PRN; +TROPICAMIDE 1% OPHTH SOLN 2ML OD SCH
[2022-05-18] MEDS ORDERED: OXCA300T14 PO (08:01)
[2022-05-18 09:37] VITALS: BP 170/90
[2022-05-18] MEDS ORDERED: fentaNYL 100 MCG/2 ML INJECTION As Ordered ONE (09:41)
[2022-05-18] MEDS ORDERED: MIDAZOLAM INJ 2MG/2ML VIAL (J2250 PER 1MG) As Ordered ONE (09:41)
== END 2022-05-18 10:00 | disposition home or self-care (01) ==
LOC: M SDC 07:30
PROVIDERS: ATTEND Ophthalmology
DX: H25.11 Age-related nuclear cataract, right eye (principal); I10 Essential (primary) hypertension; E11.9 Type 2 diabetes mellitus without complications; G43.909 Migraine, unspecified, not intractable, without status migrainosus; Z88.6 Allergy status to analgesic agent; Z79.51 Long term (current) use of inhaled steroids; Z79.899 Other long term (current) drug therapy
CPT/HCPCS: 66984; J2250; J3010; V2632

== ENCOUNTER → 2022-05-20 | Outpatient (CLI) | payer MEDICARE, MEDICAID ==
[~2022-05-20] MED LIST changes: -BSS IRRIG/VANCO(10MG)/TOBRA(5MG)/EPINEPH(1:1000-0.5CC)500ML BAG-ORONLY IR ONE; -CYCLOPENTOLATE 1% OPHTH SOLN 2 ML BTL OD SCH; -LIDOCAINE 1% 1ML PF SYRINGE (OR EYE CASES) As Ordered ONE; -LIDOCAINE 1% SDV 5ML VIAL As Ordered ONE; -LIDOCAINE 3.5 % 1ML OPHTH TOPICAL GEL OU ONE; -OFLOXACIN 0.3 % (OCUFLOX) OPTH SOL 5ML OD ONE; +OXCA300T14 PO; -PHENYLEPHRINE 2.5% OPHTH SOL 2ML OD SCH; -PHENYLEPHRINE HCL 10 % OPHTH. SOL 5ML OD PRN; -TROPICAMIDE 1% OPHTH SOLN 2ML OD SCH
[2022-05-20 16:40] LABS: TOTAL PROTEIN 7.8 GM/DL (6.4-8.2)
[2022-05-20 16:57] LABS: CA15-3 ANTIGEN 7.6 U/ML (<32.4); CA19-9 TUMOR MARKER,CARBOHYDRA 20.7 U/ML (<35.0)
== END ==
LOC: M PLALAB 12:41
PROVIDERS: ATTEND Student in an Organized Health Care Education/Training Program
DX: R74.8 Abnormal levels of other serum enzymes (principal)

== ENCOUNTER → 2022-06-03 | Outpatient (CLI) | payer MEDICARE, MEDICAID | LOC: M PAIN 15:45 | PROVIDERS: ATTEND Anesthesiology | DX: M54.2 Cervicalgia (principal); M79.18 Myalgia, other site; G89.29 Other chronic pain; E11.9 Type 2 diabetes mellitus without complications; I10 Essential (primary) hypertension; G43.909 Migraine, unspecified, not intractable, without status migrainosus; Z86.59 Personal history of other mental and behavioral disorders; Z87.891 Personal history of nicotine dependence; Z88.6 Allergy status to analgesic agent; Z79.84 Long term (current) use of oral hypoglycemic drugs; Z79.899 Other long term (current) drug therapy ==

== ENCOUNTER → 2022-06-04 | Outpatient (CLI) | payer MEDICARE, MEDICAID | LOC: M RAD 14:26 | PROVIDERS: ATTEND Anesthesiology | DX: M54.59 Other low back pain (principal) ==

== ENCOUNTER → 2022-06-21 | Outpatient (CLI) | payer MEDICARE, MEDICAID | LOC: M PAIN 14:30 | PROVIDERS: ATTEND Anesthesiology | DX: M47.816 Spondylosis without myelopathy or radiculopathy, lumbar region (principal); G89.29 Other chronic pain; E11.9 Type 2 diabetes mellitus without complications; I10 Essential (primary) hypertension; G43.909 Migraine, unspecified, not intractable, without status migrainosus; Z86.59 Personal history of other mental and behavioral disorders; Z87.891 Personal history of nicotine dependence; Z88.6 Allergy status to analgesic agent; Z79.84 Long term (current) use of oral hypoglycemic drugs; Z79.899 Other long term (current) drug therapy ==

== ENCOUNTER → 2022-07-18 | Outpatient (CLI) | payer MEDICARE, MEDICAID | LOC: M PAIN 17:00 | PROVIDERS: ATTEND Anesthesiology | DX: M53.3 Sacrococcygeal disorders, not elsewhere classified (principal); M46.1 Sacroiliitis, not elsewhere classified; G89.29 Other chronic pain; E11.9 Type 2 diabetes mellitus without complications; I10 Essential (primary) hypertension; G43.909 Migraine, unspecified, not intractable, without status migrainosus; Z86.59 Personal history of other mental and behavioral disorders; Z87.891 Personal history of nicotine dependence; Z88.6 Allergy status to analgesic agent; Z79.84 Long term (current) use of oral hypoglycemic drugs; Z79.899 Other long term (current) drug therapy | CPT/HCPCS: 76000; G0463 ==

== ENCOUNTER → 2022-07-28 | Outpatient (CLI) | payer MEDICARE, MEDICAID | LOC: M RAD 13:13 | PROVIDERS: ATTEND Internal Medicine Pulmonary Disease | DX: Z12.2 Encounter for screening for malignant neoplasm of respiratory organs (principal); Z87.891 Personal history of nicotine dependence ==

== ENCOUNTER → 2022-08-01 | Outpatient (CLI) | payer MEDICARE, MEDICAID | LOC: M WHC 09:45 | PROVIDERS: ATTEND Physician Assistant | DX: R60.0 Localized edema (principal); R14.0 Abdominal distension (gaseous); K74.60 Unspecified cirrhosis of liver ==

== ENCOUNTER → 2022-08-01 | Outpatient (CLI) | payer MEDICARE, MEDICAID | LOC: M PLALAB 10:51 | PROVIDERS: ATTEND Urology | DX: R97.20 Elevated prostate specific antigen [PSA] (principal) ==

== ENCOUNTER → 2022-08-01 | Outpatient (CLI) | payer MEDICARE, MEDICAID ==
[2022-08-01 13:57] LABS: BASO % 0.4 % (0.0-1.0); EOS # 0.2 10^3/uL (0.0-0.5); HEMATOCRIT 49.1 % (42.0-52.0); HEMOGLOBIN 16.6 g/dl (13.5-17.5); LYMPH % 27.3 % (24.0-44.0); MEAN CORPUSCULAR HGB CONC 33.8 g/dl (32.0-36.5); MEAN CORPUSCULAR VOLUME 94.8 fl (80.0-96.0); MONO # 0.8 10^3/uL (0.0-0.8); MONO % 11.3 % (2.0-8.0); NEUTROPHILS # 4.2 10^3/uL (1.5-8.5); NEUTROPHILS % 57.7 % (36.0-66.0); PLATELET COUNT, AUTOMATED 119 10^3/uL (150-450); RED BLOOD COUNT 5.18 10^6/uL (4.30-6.10); WHITE BLOOD COUNT 7.4 10^3/uL (4.0-10.0)
[2022-08-01 14:21] LABS: ALKALINE PHOSPHATASE 74 U/L (46-116); ALT/SGPT 65 U/L (7.0-40); AST/SGOT 34 U/L (<34); BILIRUBIN,TOTAL 0.9 MG/DL (0.3-1.2); BLOOD UREA NITROGEN 18 MG/DL (9-23); CALCIUM LEVEL 8.7 MG/DL (8.3-10.6); CARBON DIOXIDE LEVEL 28 MMOL/L (20-31); CHLORIDE LEVEL 103 MMOL/L (98-107); CREATININE FOR GFR 1.04 MG/DL (0.70-1.30); GLOMERULAR FILTRATION RATE > 60.0 (>49); GLUCOSE, FASTING 108 MG/DL (74-106); MAGNESIUM LEVEL 2.1 MG/DL (1.8-2.4); POTASSIUM SERUM 4.3 MMOL/L (3.5-5.1); SODIUM LEVEL 137 MMOL/L (136-145); TOTAL PROTEIN 7.4 G/DL (5.7-8.2)
[2022-08-02 23:09] LABS: PSA TOTAL 3.8 ng/mL (0.0-4.0)
== END ==
LOC: M PLALAB 10:54
PROVIDERS: ATTEND Physician Assistant
DX: R60.0 Localized edema (principal); R06.02 Shortness of breath; I10 Essential (primary) hypertension; E11.69 Type 2 diabetes mellitus with other specified complication; R97.20 Elevated prostate specific antigen [PSA]

== ENCOUNTER → 2022-08-18 | Outpatient (CLI) | payer MEDICARE, MEDICAID | LOC: M LABSMTC 10:00 | PROVIDERS: ATTEND Anesthesiology | DX: Z01.812 Encounter for preprocedural laboratory examination (principal) ==

== ENCOUNTER → 2022-08-22 | Outpatient (CLI) | payer MEDICARE, MEDICAID ==
[~2022-08-22] MED LIST changes: +BUPIVACAINE HCL 0.25% 30ML VIAL As Ordered ONE; +ISOVUE-M 300 61% 15ML VIAL As Ordered ONE; +LIDOCAINE 1% SDV 30ML VIAL As Ordered ONE; +TRIAMCINOLONE ACETONIDE SUSP 40MG/ML 1ML VIAL As Ordered ONE; +diazePAM 5MG TABLET As Ordered ONE; +diphenhydrAMINE 25MG CAP As Ordered ONE; +oxyCODONE 5MG TAB As Ordered ONE
== END ==
LOC: M PAIN 10:00
PROVIDERS: ATTEND Anesthesiology
DX: M46.1 Sacroiliitis, not elsewhere classified (principal); G89.29 Other chronic pain; E11.9 Type 2 diabetes mellitus without complications; I10 Essential (primary) hypertension; G43.909 Migraine, unspecified, not intractable, without status migrainosus; Z86.59 Personal history of other mental and behavioral disorders; Z87.891 Personal history of nicotine dependence; Z88.6 Allergy status to analgesic agent; Z79.84 Long term (current) use of oral hypoglycemic drugs; Z79.899 Other long term (current) drug therapy
CPT/HCPCS: G0260; J3301; Q9967

== ENCOUNTER → 2022-09-21 | Outpatient (CLI) | payer MEDICARE, MEDICAID ==
[~2022-09-21] MED LIST changes: -BUPIVACAINE HCL 0.25% 30ML VIAL As Ordered ONE; +FLUT50SP17 NARES; -FLUTISP NARES; -ISOVUE-M 300 61% 15ML VIAL As Ordered ONE; -LIDOCAINE 1% SDV 30ML VIAL As Ordered ONE; -TRIAMCINOLONE ACETONIDE SUSP 40MG/ML 1ML VIAL As Ordered ONE; -diazePAM 5MG TABLET As Ordered ONE; -diphenhydrAMINE 25MG CAP As Ordered ONE; -oxyCODONE 5MG TAB As Ordered ONE
== END ==
LOC: M PAIN 10:30
PROVIDERS: ATTEND Anesthesiology
DX: M53.3 Sacrococcygeal disorders, not elsewhere classified (principal); G89.29 Other chronic pain; E11.9 Type 2 diabetes mellitus without complications; I10 Essential (primary) hypertension; G43.909 Migraine, unspecified, not intractable, without status migrainosus; Z86.59 Personal history of other mental and behavioral disorders; Z87.891 Personal history of nicotine dependence; Z88.6 Allergy status to analgesic agent; Z79.84 Long term (current) use of oral hypoglycemic drugs; Z79.899 Other long term (current) drug therapy

== ENCOUNTER → 2022-11-21 | Outpatient (CLI) | payer MEDICARE, MEDICAID | LOC: M PAIN 13:45 | PROVIDERS: ATTEND Nurse Practitioner Family | DX: M46.1 Sacroiliitis, not elsewhere classified (principal); G89.29 Other chronic pain; E11.9 Type 2 diabetes mellitus without complications; I10 Essential (primary) hypertension; G43.909 Migraine, unspecified, not intractable, without status migrainosus; Z86.59 Personal history of other mental and behavioral disorders; Z87.891 Personal history of nicotine dependence; Z88.6 Allergy status to analgesic agent; Z79.84 Long term (current) use of oral hypoglycemic drugs; Z79.899 Other long term (current) drug therapy ==

== ENCOUNTER 2022-12-05 06:42 | Day surgery (SDC) | payer MEDICARE, MEDICAID ==
[~2022-12-05] VITALS: Ht 170.2 cm; Wt 82.1 kg
[~2022-12-05 06:42] MED LIST changes: +NS 1,000 ML IV ONE
[2022-12-05] MEDS ORDERED: propofoL 200 MG/20 ML VIAL As Ordered ONE (07:04)
[2022-12-05] MEDS ORDERED: LIDOCAINE 2% 100MG/5ML SDV (FOR ANES.) As Ordered ONE (07:04)
[2022-12-05] MEDS ORDERED: fentaNYL 100 MCG/2 ML INJECTION As Ordered ONE (07:45)
[2022-12-05] MEDS ORDERED: GLYCOPYRROLATE INJ 0.2 MG/ML 2 ML VIAL As Ordered ONE (08:09)
[2022-12-05 08:54] VITALS: TEMP 99.2
[2022-12-05 09:11] VITALS: BP 174/102; O2SAT 93
== END 2022-12-05 09:11 | disposition home or self-care (01) ==
LOC: M OPP 06:42
PROVIDERS: ATTEND Internal Medicine Gastroenterology
DX: Z86.010 Personal history of colon polyps (principal); D12.3 Benign neoplasm of transverse colon; K57.30 Diverticulosis of large intestine without perforation or abscess without bleeding; K64.8 Other hemorrhoids; K22.89 Other specified disease of esophagus; K29.60 Other gastritis without bleeding; Z79.51 Long term (current) use of inhaled steroids; Z79.84 Long term (current) use of oral hypoglycemic drugs; Z79.899 Other long term (current) drug therapy; Z87.891 Personal history of nicotine dependence
CPT/HCPCS: 43239; 45385; 88305; J3010

== ENCOUNTER → 2023-01-16 | Outpatient (CLI) | payer MEDICARE, MEDICAID ==
[~2023-01-16] MED LIST changes: -GABA-283 PO; +GABA-284 PO; +ISOVUE-M 300 61% 15ML VIAL As Ordered ONE; +LIDOCAINE 1% SDV 30ML VIAL As Ordered ONE; -NS 1,000 ML IV ONE; +TRIAMCINOLONE ACETONIDE SUSP 40MG/ML 1ML VIAL As Ordered ONE; +diazePAM 5MG TABLET As Ordered ONE; +diphenhydrAMINE 25MG CAP As Ordered ONE; +oxyCODONE 5MG TAB As Ordered ONE
== END ==
LOC: M PAIN 08:00
PROVIDERS: ATTEND Anesthesiology
DX: M46.1 Sacroiliitis, not elsewhere classified (principal); G89.29 Other chronic pain; E11.9 Type 2 diabetes mellitus without complications; I10 Essential (primary) hypertension; G43.909 Migraine, unspecified, not intractable, without status migrainosus; Z86.59 Personal history of other mental and behavioral disorders; Z87.891 Personal history of nicotine dependence; Z88.6 Allergy status to analgesic agent; Z79.84 Long term (current) use of oral hypoglycemic drugs; Z79.899 Other long term (current) drug therapy
CPT/HCPCS: G0260; J0665; J3301; Q9967

== ENCOUNTER → 2023-02-02 | Outpatient (CLI) | payer MEDICARE, MEDICAID ==
[~2023-02-02] MED LIST changes: -ISOVUE-M 300 61% 15ML VIAL As Ordered ONE; -LIDOCAINE 1% SDV 30ML VIAL As Ordered ONE; -TRIAMCINOLONE ACETONIDE SUSP 40MG/ML 1ML VIAL As Ordered ONE; -diazePAM 5MG TABLET As Ordered ONE; -diphenhydrAMINE 25MG CAP As Ordered ONE; -oxyCODONE 5MG TAB As Ordered ONE
[2023-02-02 13:58] LABS: BASO % 0.4 % (0.0-1.0); EOS # 0.2 10^3/uL (0.0-0.5); EOS % 1.5 % (0.0-3.0); HEMATOCRIT 51.7 % (42.0-52.0); HEMOGLOBIN 17.2 g/dl (13.5-17.5); LYMPH # 2.3 10^3/uL (1.5-5.0); LYMPH % 21.1 % (24.0-44.0); MEAN CORPUSCULAR HGB CONC 33.3 g/dl (32.0-36.5); MEAN CORPUSCULAR VOLUME 96.3 fl (80.0-96.0); MONO # 0.9 10^3/uL (0.0-0.8); MONO % 8.5 % (2.0-8.0); NEUTROPHILS # 7.6 10^3/uL (1.5-8.5); NEUTROPHILS % 68.1 % (36.0-66.0); PLATELET COUNT, AUTOMATED 143 10^3/uL (150-450); RED BLOOD COUNT 5.37 10^6/uL (4.30-6.10); WHITE BLOOD COUNT 11.1 10^3/uL (4.0-10.0)
[2023-02-02 14:21] LABS: HEMOGLOBIN A1c 6.4 % (4.0-6.0)
[2023-02-02 14:25] LABS: ALBUMIN 4.3 G/DL (3.2-5.2); ALKALINE PHOSPHATASE 75 U/L (46-116); ALT/SGPT 100 U/L (7.0-40); AST/SGOT 35 U/L (<34); BILIRUBIN,TOTAL 0.6 MG/DL (0.3-1.2); BLOOD UREA NITROGEN 26 MG/DL (9-23); CALCIUM LEVEL 9.8 MG/DL (8.3-10.6); CARBON DIOXIDE LEVEL 24 MMOL/L (20-31); CHLORIDE LEVEL 102 MMOL/L (98-107); CREATININE FOR GFR 1.17 MG/DL (0.70-1.30); CREATININE, URINE 115.7 MG/DL; GLOMERULAR FILTRATION RATE > 60.0 (>49); GLUCOSE, FASTING 146 MG/DL (74-106); POTASSIUM SERUM 4.4 MMOL/L (3.5-5.1); SODIUM LEVEL 137 MMOL/L (136-145)
[2023-02-02 14:26] LABS: MAU/CREAT RATIO 14.6 MCG/MG (0.0-30.0)
== END ==
LOC: M PLALAB 09:57
PROVIDERS: ATTEND Student in an Organized Health Care Education/Training Program
DX: Z00.00 Encounter for general adult medical examination without abnormal findings (principal); I10 Essential (primary) hypertension; E11.42 Type 2 diabetes mellitus with diabetic polyneuropathy
CPT/HCPCS: 36415; 80053; 82043; 83036; 85025; G0103

== ENCOUNTER → 2023-02-27 | Outpatient (REF) | payer MEDICARE, MEDICAID | LOC: M SFHCPLAZ 13:49 | PROVIDERS: ATTEND Family Medicine | DX: Z00.00 Encounter for general adult medical examination without abnormal findings (principal); K74.60 Unspecified cirrhosis of liver ==

== ENCOUNTER → 2023-02-28 | Outpatient (CLI) | payer MEDICARE, MEDICAID | LOC: M PAIN 15:00 | PROVIDERS: ATTEND Anesthesiology | DX: M53.3 Sacrococcygeal disorders, not elsewhere classified (principal); G89.29 Other chronic pain; E11.9 Type 2 diabetes mellitus without complications; I10 Essential (primary) hypertension; G43.909 Migraine, unspecified, not intractable, without status migrainosus; Z86.59 Personal history of other mental and behavioral disorders; Z87.891 Personal history of nicotine dependence; Z88.6 Allergy status to analgesic agent; Z79.84 Long term (current) use of oral hypoglycemic drugs; Z79.899 Other long term (current) drug therapy ==

== ENCOUNTER → 2023-02-28 | Outpatient (REF) | payer MEDICARE, MEDICAID | LOC: M SFHCPLAZ 07:31 | PROVIDERS: ATTEND Family Medicine | DX: Z00.00 Encounter for general adult medical examination without abnormal findings (principal); Z53.8 Procedure and treatment not carried out for other reasons ==

== ENCOUNTER → 2023-03-01 | Outpatient (CLI) | payer MEDICARE, MEDICAID | LOC: M RAD 11:04 | PROVIDERS: ATTEND Student in an Organized Health Care Education/Training Program | DX: Z00.00 Encounter for general adult medical examination without abnormal findings (principal); K74.60 Unspecified cirrhosis of liver ==

== ENCOUNTER → 2023-04-27 | Outpatient (CLI) | payer MEDICARE, MEDICAID | LOC: M PAIN 14:45 | PROVIDERS: ATTEND Anesthesiology | DX: M46.1 Sacroiliitis, not elsewhere classified (principal); G89.29 Other chronic pain; R10.2 Pelvic and perineal pain; Z87.891 Personal history of nicotine dependence; Z88.6 Allergy status to analgesic agent; Z79.84 Long term (current) use of oral hypoglycemic drugs; Z79.899 Other long term (current) drug therapy ==

== ENCOUNTER → 2023-06-21 | Outpatient (CLI) | payer MEDICARE, MEDICAID ==
[~2023-06-21] MED LIST changes: -FLUT50SP17 NARES; +FLUTISP NARES
[2023-06-21 10:22] LABS: INR 1.11
[2023-06-21 10:23] LABS: PARTIAL THROMBOPLASTIN TIME 32.4 SECONDS (24.8-34.2)
[2023-06-21 10:41] LABS: ALBUMIN 4.2 G/DL (3.2-5.2); ALKALINE PHOSPHATASE 61 U/L (46-116); ALT/SGPT 51 U/L (7.0-40); AST/SGOT 25 U/L (<34); BILIRUBIN,DIRECT 0.1 MG/DL (<0.4); BILIRUBIN,TOTAL 0.6 MG/DL (0.3-1.2); TOTAL IRON BINDING CAPACITY 333 UG/DL (250-425); TOTAL PROTEIN 7.5 G/DL (5.7-8.2)
[2023-06-21 11:22] LABS: HEPATITIS B CORE ANTIBODY IGM NEGATIVE (NEGATIVE)
[2023-06-21 16:57] LABS: IRON (FE) 86 UG/DL (65-175); PERCENT SATURATION 25.8 % (19.7-50.0)
[2023-06-21 17:07] LABS: HEPATITIS C VIRUS ABY INDEX > 11.00 INDEX (<0.8)
[2023-06-23 16:09] LABS: ANCA-ATYPICAL <1:20 titer (Neg:<1:20); ANTI-MITOCHONDRIAL ANTIBODY <20.0 Units (0.0-20.0); ANTINUCLEAR ANTIBODIES DIRECT Negative (Negative); CYTOPLASMIC NEUTROP AB ANCA-C <1:20 titer (Neg:<1:20); LIVER-KIDNEY MICROSOMAL ABY <20.1 Units (0.0-20.0); PERINUCLEAR AB ANCA-P <1:20 titer (Neg:<1:20)
== END ==
LOC: M RAD 09:09
PROVIDERS: ATTEND Physician Assistant Medical
DX: K74.60 Unspecified cirrhosis of liver (principal); R74.01 Elevation of levels of liver transaminase levels; Z11.3 Encounter for screening for infections with a predominantly sexual mode of transmission; Z11.59 Encounter for screening for other viral diseases

== ENCOUNTER → 2023-06-27 | Outpatient (CLI) | payer MEDICARE, MEDICAID | LOC: M PAIN 14:30 | PROVIDERS: ATTEND Nurse Practitioner Family | DX: M46.1 Sacroiliitis, not elsewhere classified (principal); G89.29 Other chronic pain; I10 Essential (primary) hypertension; E78.5 Hyperlipidemia, unspecified; E11.9 Type 2 diabetes mellitus without complications; M47.816 Spondylosis without myelopathy or radiculopathy, lumbar region; M54.2 Cervicalgia; Z87.891 Personal history of nicotine dependence; Z79.84 Long term (current) use of oral hypoglycemic drugs; Z79.899 Other long term (current) drug therapy; Z88.6 Allergy status to analgesic agent ==

== ENCOUNTER → 2023-08-22 | Outpatient (CLI) | payer MEDICARE, MEDICAID | LOC: M PAIN 14:30 | PROVIDERS: ATTEND Nurse Practitioner Family | DX: M46.1 Sacroiliitis, not elsewhere classified (principal); I10 Essential (primary) hypertension; G43.919 Migraine, unspecified, intractable, without status migrainosus; E78.5 Hyperlipidemia, unspecified; E11.9 Type 2 diabetes mellitus without complications; M47.816 Spondylosis without myelopathy or radiculopathy, lumbar region; M54.2 Cervicalgia; Z87.891 Personal history of nicotine dependence; Z79.84 Long term (current) use of oral hypoglycemic drugs; Z79.899 Other long term (current) drug therapy; Z88.6 Allergy status to analgesic agent ==

== ENCOUNTER → 2023-08-29 | Outpatient (CLI) | payer MEDICARE, MEDICAID | LOC: M RAD 14:14 | PROVIDERS: ATTEND Internal Medicine Pulmonary Disease | DX: Z12.2 Encounter for screening for malignant neoplasm of respiratory organs (principal); Z87.891 Personal history of nicotine dependence; I25.10 Atherosclerotic heart disease of native coronary artery without angina pectoris; I70.0 Atherosclerosis of aorta ==

== ENCOUNTER → 2023-08-31 | Outpatient (CLI) | payer MEDICARE, MEDICAID | LOC: M PLAIMG 14:15 → M PLALAB 14:15 | PROVIDERS: ATTEND Student in an Organized Health Care Education/Training Program | DX: M19.011 Primary osteoarthritis, right shoulder (principal); M75.31 Calcific tendinitis of right shoulder; E78.2 Mixed hyperlipidemia; E11.69 Type 2 diabetes mellitus with other specified complication ==

== ENCOUNTER → 2023-09-11 | Outpatient (CLI) | payer MEDICARE, MEDICAID | LOC: M PAIN 15:30 | PROVIDERS: ATTEND Nurse Practitioner Family | DX: M46.1 Sacroiliitis, not elsewhere classified (principal); G89.29 Other chronic pain; I10 Essential (primary) hypertension; E11.9 Type 2 diabetes mellitus without complications; Z87.891 Personal history of nicotine dependence; Z79.02 Long term (current) use of antithrombotics/antiplatelets; Z79.1 Long term (current) use of non-steroidal anti-inflammatories (NSAID); Z79.84 Long term (current) use of oral hypoglycemic drugs; Z79.891 Long term (current) use of opiate analgesic; Z79.899 Other long term (current) drug therapy ==

== ENCOUNTER → 2023-10-13 | Outpatient (CLI) | payer MEDICARE, MEDICAID | LOC: M PAIN 16:30 | PROVIDERS: ATTEND Nurse Practitioner Family | DX: M79.18 Myalgia, other site (principal); Z79.891 Long term (current) use of opiate analgesic; G89.29 Other chronic pain; I10 Essential (primary) hypertension; E11.9 Type 2 diabetes mellitus without complications; E78.5 Hyperlipidemia, unspecified; M47.816 Spondylosis without myelopathy or radiculopathy, lumbar region; M54.2 Cervicalgia; Z87.891 Personal history of nicotine dependence; Z79.84 Long term (current) use of oral hypoglycemic drugs; Z79.899 Other long term (current) drug therapy; Z88.6 Allergy status to analgesic agent ==

== ENCOUNTER → 2023-11-17 | Outpatient (CLI) | payer MEDICARE, MEDICAID ==
[~2023-11-17] MED LIST changes: +ISOVUE-M 300 61% 15ML VIAL As Ordered ONE; +LIDOCAINE 1% SDV 30ML VIAL As Ordered ONE; +TRIAMCINOLONE ACETONIDE SUSP 40MG/ML 1ML VIAL As Ordered ONE; +diazePAM 5MG TABLET As Ordered ONE; +diphenhydrAMINE 25MG CAP As Ordered ONE; +oxyCODONE 5MG TAB As Ordered ONE
== END ==
LOC: M PAIN 09:30
PROVIDERS: ATTEND Anesthesiology
DX: M46.1 Sacroiliitis, not elsewhere classified (principal); G89.29 Other chronic pain; M54.50 Low back pain, unspecified; I10 Essential (primary) hypertension; E78.5 Hyperlipidemia, unspecified; E11.9 Type 2 diabetes mellitus without complications; M47.816 Spondylosis without myelopathy or radiculopathy, lumbar region; N40.1 Benign prostatic hyperplasia with lower urinary tract symptoms; Z87.891 Personal history of nicotine dependence; Z79.84 Long term (current) use of oral hypoglycemic drugs; Z79.899 Other long term (current) drug therapy; Z88.6 Allergy status to analgesic agent
CPT/HCPCS: G0260; J0665; J3301; Q9967

== ENCOUNTER → 2024-01-01 | Outpatient (CLI) | payer MEDICARE, MEDICAID ==
[~2024-01-01] MED LIST changes: -ISOVUE-M 300 61% 15ML VIAL As Ordered ONE; -LIDOCAINE 1% SDV 30ML VIAL As Ordered ONE; -TRIAMCINOLONE ACETONIDE SUSP 40MG/ML 1ML VIAL As Ordered ONE; -diazePAM 5MG TABLET As Ordered ONE; -diphenhydrAMINE 25MG CAP As Ordered ONE; -oxyCODONE 5MG TAB As Ordered ONE
== END ==
LOC: M PAIN 14:15
PROVIDERS: ATTEND Nurse Practitioner Family
DX: M46.1 Sacroiliitis, not elsewhere classified (principal); Z87.891 Personal history of nicotine dependence; I10 Essential (primary) hypertension; E78.5 Hyperlipidemia, unspecified; E11.9 Type 2 diabetes mellitus without complications; G43.909 Migraine, unspecified, not intractable, without status migrainosus; Z79.02 Long term (current) use of antithrombotics/antiplatelets; Z79.1 Long term (current) use of non-steroidal anti-inflammatories (NSAID); Z79.52 Long term (current) use of systemic steroids; Z79.84 Long term (current) use of oral hypoglycemic drugs; Z79.811 Long term (current) use of aromatase inhibitors; Z79.899 Other long term (current) drug therapy; Z88.6 Allergy status to analgesic agent

== ENCOUNTER → 2024-03-22 | Outpatient (CLI) | payer MEDICARE, MEDICAID ==
[~2024-03-22] MED LIST changes: +GABA-1490 PO; -GABA600T4 PO; +NAPR-1405 PO; -NAPR500T6 PO
== END ==
LOC: M PLALAB 09:20
PROVIDERS: ATTEND Urology
DX: N32.81 Overactive bladder (principal)

== ENCOUNTER → 2024-03-22 | Outpatient (CLI) | payer MEDICARE, MEDICAID ==
[2024-03-22 13:43] LABS: BLOOD UREA NITROGEN 20 MG/DL (9-23); CALCIUM LEVEL 10.2 MG/DL (8.3-10.6); CARBON DIOXIDE LEVEL 24 MMOL/L (20-31); CHLORIDE LEVEL 107 MMOL/L (98-107); CHOLESTEROL LEVEL 132 MG/DL (<200); CHOLESTEROL RISK RATIO 5.52 (<5); CREATININE FOR GFR 1.07 MG/DL (0.70-1.30); GLOMERULAR FILTRATION RATE > 60.0 (>49); GLUCOSE, FASTING 121 MG/DL (74-106); HDL CHOLESTEROL 23.9 MG/DL (>40); NON-HDL-C 108.1 MG/DL; POTASSIUM SERUM 4.2 MMOL/L (3.5-5.1); SODIUM LEVEL 139 MMOL/L (136-145); TRIGLYCERIDES LEVEL 405 MG/DL (<150)
== END ==
LOC: M PLALAB 09:23
PROVIDERS: ATTEND Student in an Organized Health Care Education/Training Program
DX: I10 Essential (primary) hypertension (principal); N32.81 Overactive bladder

== ENCOUNTER → 2024-04-01 | Outpatient (CLI) | payer MEDICARE, MEDICAID | LOC: M PAIN 14:30 | PROVIDERS: ATTEND Nurse Practitioner Family | DX: M46.1 Sacroiliitis, not elsewhere classified (principal); G89.29 Other chronic pain; M54.50 Low back pain, unspecified; I10 Essential (primary) hypertension; G43.119 Migraine with aura, intractable, without status migrainosus; E78.5 Hyperlipidemia, unspecified; E11.9 Type 2 diabetes mellitus without complications; F43.10 Post-traumatic stress disorder, unspecified; M47.816 Spondylosis without myelopathy or radiculopathy, lumbar region; N40.1 Benign prostatic hyperplasia with lower urinary tract symptoms; N39.41 Urge incontinence; Z87.891 Personal history of nicotine dependence; Z79.84 Long term (current) use of oral hypoglycemic drugs; Z79.899 Other long term (current) drug therapy; Z88.6 Allergy status to analgesic agent ==

== ENCOUNTER → 2024-07-18 | Outpatient (CLI) | payer MEDICARE, MEDICAID ==
[~2024-07-18] MED LIST changes: +ATOR-398 PO; -LIPI80TA PO
== END ==
LOC: M PAIN 15:00
PROVIDERS: ATTEND Nurse Practitioner Family
DX: M51.17 Intervertebral disc disorders with radiculopathy, lumbosacral region (principal); M46.1 Sacroiliitis, not elsewhere classified; G89.29 Other chronic pain; I10 Essential (primary) hypertension; E78.5 Hyperlipidemia, unspecified; E11.9 Type 2 diabetes mellitus without complications; M54.2 Cervicalgia; Z87.891 Personal history of nicotine dependence; Z79.84 Long term (current) use of oral hypoglycemic drugs; Z79.899 Other long term (current) drug therapy; Z88.6 Allergy status to analgesic agent

== ENCOUNTER → 2024-07-30 | Outpatient (CLI) | payer MEDICARE, MEDICAID ==
[2024-07-30 17:52] LABS: ALKALINE PHOSPHATASE 64 U/L (40-129); ALT/SGPT 50 U/L (7.0-40); AST/SGOT 20 U/L (<34); BILIRUBIN,DIRECT 0.1 MG/DL (<0.4); BILIRUBIN,TOTAL 0.6 MG/DL (0.3-1.2); CHOLESTEROL LEVEL 155 MG/DL (<200); CHOLESTEROL RISK RATIO 5.23 (<5); HDL CHOLESTEROL 29.6 MG/DL (>40); NON-HDL-C 125.4 MG/DL; TOTAL PROTEIN 7.8 G/DL (5.7-8.2); TRIGLYCERIDES LEVEL 520 MG/DL (<150)
[2024-07-30 18:11] LABS: BASO % 0.3 % (0.0-1.0); EOS # 0.1 10^3/uL (0.0-0.5); EOS % 1.5 % (0.0-3.0); HEMATOCRIT 49.9 % (42.0-52.0); LYMPH # 2.2 10^3/uL (1.5-5.0); LYMPH % 23.3 % (24.0-44.0); MEAN CORPUSCULAR HEMOGLOBIN 32.7 pg (27.0-33.0); MEAN CORPUSCULAR HGB CONC 34.1 g/dl (32.0-36.5); MONO # 1.1 10^3/uL (0.0-0.8); MONO % 11.3 % (2.0-8.0); NEUTROPHILS % 63.4 % (36.0-66.0); PLATELET COUNT, AUTOMATED 142 10^3/uL (150-450); WHITE BLOOD COUNT 9.5 10^3/uL (4.0-10.0)
== END ==
LOC: M PLALAB 14:28
PROVIDERS: ATTEND Student in an Organized Health Care Education/Training Program
DX: E11.69 Type 2 diabetes mellitus with other specified complication (principal); E78.2 Mixed hyperlipidemia; K74.60 Unspecified cirrhosis of liver; K76.0 Fatty (change of) liver, not elsewhere classified

== ENCOUNTER → 2024-09-05 | Outpatient (CLI) | payer MEDICARE, MEDICAID | LOC: M RAD 16:20 | PROVIDERS: ATTEND Internal Medicine Pulmonary Disease | DX: Z87.891 Personal history of nicotine dependence (principal); R97.20 Elevated prostate specific antigen [PSA] ==

== ENCOUNTER → 2024-09-05 | Outpatient (CLI) | payer MEDICARE, MEDICAID ==
[2024-09-09 13:47] LABS: PSA FREE 1.3 ng/mL; PSA TOTAL 6.7 ng/mL (< OR = 4.0)
== END ==
LOC: M LAB 16:24
PROVIDERS: ATTEND Physician Assistant
DX: R97.20 Elevated prostate specific antigen [PSA] (principal)

== ENCOUNTER → 2024-09-26 | Outpatient (CLI) | payer MEDICARE, MEDICAID | LOC: M PLARAD 14:24 | PROVIDERS: ATTEND Pain Medicine Interventional Pain Medicine | DX: M54.16 Radiculopathy, lumbar region (principal); M51.360 Other intervertebral disc degeneration, lumbar region with discogenic back pain only ==

== ENCOUNTER → 2024-10-04 | Outpatient (REF) | payer MEDICARE, MEDICAID | LOC: M SMT 14:08 | PROVIDERS: ATTEND Urology | DX: R97.20 Elevated prostate specific antigen [PSA] (principal) ==

== ENCOUNTER → 2024-12-31 | Outpatient (CLI) | payer MEDICARE, MEDICAID ==
[~2024-12-31] MED LIST changes: +METF-1113 PO; -METF-723 PO
[2024-12-31 18:49] LABS: CALCIUM LEVEL 9.7 MG/DL (8.3-10.6); CARBON DIOXIDE LEVEL 26 MMOL/L (20-31); CHLORIDE LEVEL 102 MMOL/L (98-107); CHOLESTEROL LEVEL 143 MG/DL (<200); CHOLESTEROL RISK RATIO 5.23 (<5); CREATININE FOR GFR 0.94 MG/DL (0.70-1.30); GLOMERULAR FILTRATION RATE 90.0 (>49); NON-HDL-C 115.7 MG/DL; POTASSIUM SERUM 4.2 MMOL/L (3.5-5.1); SODIUM LEVEL 141 MMOL/L (136-145); TRIGLYCERIDES LEVEL 693 MG/DL (<150)
[2024-12-31 19:17] LABS: ESTIMATED AVERAGE GLUCOSE 131.0 MG/DL (60-110); MALB URINE SIEMENS 4.0 MG/L
[2024-12-31 19:19] LABS: CREATININE, URINE 82.4 MG/DL; MAU/CREAT RATIO 4.8 MCG/MG (0.0-30.0)
== END ==
LOC: M PLALAB 14:40
PROVIDERS: ATTEND Student in an Organized Health Care Education/Training Program
DX: E11.69 Type 2 diabetes mellitus with other specified complication (principal); I10 Essential (primary) hypertension; E78.2 Mixed hyperlipidemia

== ENCOUNTER → 2025-01-14 | Outpatient (CLI) | payer MEDICARE, MEDICAID | LOC: M RAD 16:24 | PROVIDERS: ATTEND Student in an Organized Health Care Education/Training Program | DX: Z12.2 Encounter for screening for malignant neoplasm of respiratory organs (principal); F17.210 Nicotine dependence, cigarettes, uncomplicated; I70.0 Atherosclerosis of aorta; I25.10 Atherosclerotic heart disease of native coronary artery without angina pectoris ==

== ENCOUNTER → 2025-02-14 | Outpatient (CLI) | payer MEDICARE, MEDICAID ==
[2025-02-14 11:39] LABS: ALT/SGPT 52.0 U/L (7.0-40); AST/SGOT 27.0 U/L (<34)
== END ==
LOC: M PLALAB 09:17
PROVIDERS: ATTEND Student in an Organized Health Care Education/Training Program
DX: E78.2 Mixed hyperlipidemia (principal)

== ENCOUNTER → 2025-03-18 | Outpatient (CLI) | payer MEDICARE, MEDICAID ==
[~2025-03-18] MED LIST changes: -METF-1113 PO; +METF-1201 PO
== END ==
LOC: M PLALAB 13:53
PROVIDERS: ATTEND Urology
DX: R97.20 Elevated prostate specific antigen [PSA] (principal)

== ENCOUNTER → 2025-04-22 | Outpatient (CLI) | payer MEDICARE, MEDICAID ==
[~2025-04-22] MED LIST changes: +PROHANCE 279.3MG/ML 15ML VIAL As Ordered ONE; +PROHANCE 279.3MG/ML 5ML VIAL As Ordered ONE
== END ==
LOC: M RAD 07:58
PROVIDERS: ATTEND Urology
DX: R97.20 Elevated prostate specific antigen [PSA] (principal)
CPT/HCPCS: 72197; A9576